=== PATIENT | male | born 1940 | race Caucasian/White ===

== ENCOUNTER → 2017-04-07 | Outpatient (CLI) | payer MEDICARE, BC ==
--- NOTE | 2017-04-07 10:14 | US ---
EXAMINATION TYPE: US kidneys/renal and bladder DATE OF EXAM: 04/07/2017 COMPARISON: 05/19/2016 CLINICAL HISTORY: D41.01 Neoplasm of unspecified behavior of Elisa. EXAM MEASUREMENTS: Right Kidney: 9.4 x 4.9 x 5.7 cm Left Kidney: 12.2 x 6.1 x 6.3 cm Right Kidney: 3.6 x 2.4 x 3.8 cm mass upper/mid pole . This has enlarged from the prior exam of 2015 where it measured 3.0 x 2.8 x 2.7 cm. Left Kidney: No hydronephrosis or masses seen Bladder: slightly distended Bilateral Jets seen: no There is no evidence for hydronephrosis at this point in time. No nephrolithiasis is seen. No deidre s are identified. The urinary bladder is anechoic. Bilateral ureteral jets are seen. IMPRESSION: Enlarging suspicious right renal mass measuring up to 3.8 cm. Again dynamic enhanced CT or MR are rec ommended for further characterization. A [place] message has been communicated to Mike Montgomery MD via the [facility] system on 04/07/2017 10:12 AM, Message ID [id number].
== END | disposition home or self-care (01) ==
LOC: RADUSWWP 08:25
PROVIDERS: ATTEND Urology
DX: N28.89 Other specified disorders of kidney and ureter (principal); D49.4 Neoplasm of unspecified behavior of bladder
CPT/HCPCS: 76770

== ENCOUNTER → 2018-10-06 | Outpatient (CLI) | payer MEDICARE, BC ==
--- NOTE | 2018-10-07 09:09 | CT ---
EXAMINATION TYPE: CT abdomen w con DATE OF EXAM: 10/06/2018 COMPARISON: Ultrasound kidneys 04/07/2017. No interval films are available at this location. INDICATION: Malignant neoplasm of RT kidney DLP: 1308 mGycm, Automated exposure control for dose reduction was used. CONTRAST: 80 mL of Isovue 300. Study performed with Oral Contrast TECHNIQUE: Axial images were obtained from above the diaphragm to the iliac crests in the axial plane at 5 mm thick sections. Reconstructed images are reviewed on the computer in the coronal plane. FINDINGS: Limited CT sections are obtained the lung bases. There may be some lingular atelectasis.. Coronary artery calcification is noted. CT ABDOMEN: Liver: Normal Spleen: Normal Pancreas: Normal Adrenal glands: The adrenal glands are normal. Gallbladder: Normal Kidneys: No masses are evident. There is moderate right hydronephrosis. Hydroureter is present to the pelvic inlet. The dilated distal ureter extends out of the [id number]. There is a hypodense lesio n on the right kidney measuring 1.8 x 1.2 cm measuring 4 Hounsfield units may be a cyst. This appears to correspond to prior site of solid mass by ultrasound. Delayed images were obtained through the dneys, which remain unremarkable. Aorta: Vascular calcification is within the aorta. Inferior vena cava: Normal. Loops of bowel distended with oral contrast normal. There are loops of bowel lacking oral contrast or with limited distention limiting their evaluation. IMPRESSIONS: 1. Moderate right hydronephrosis. Hydroureter extends out of the [id number] on the right. Conside r evaluation of the distal ureter. 2. Low density lesion on the lateral mid right kidney likely a cyst measuring 4 Hounsfield units. Thi s appears to be at the prior mass site. 3. No suspicious masses on the kidneys or suspicious changes to suggest metastatic disease.
== END | disposition home or self-care (01) ==
LOC: RADCTMAIN 15:14
PROVIDERS: ATTEND Urology
DX: C64.1 Malignant neoplasm of right kidney, except renal pelvis (principal); N13.30 Unspecified hydronephrosis; N13.4 Hydroureter
CPT/HCPCS: 82565; 84520; 74160; 36415; Q9967

== ENCOUNTER 2018-10-10 08:41 | Day surgery (SDC) | payer MEDICARE, BC ==
[~2018-10-10 08:41] MED LIST: LIDOCAINE 1% 20 ML VIAL (10MG/ML) FOR IV START INTRADERMA PRN; MIDAZOLAM (PF) 2 MG/2 ML VIAL IV PRN; ceFAZolin 1,000 MG in SODIUM CHLORIDE 0.9% IRRIGATIO 250 ML IRRIGATION ONE; ceFAZolin IN SWFI 2 GM/20 ML SYRINGE IVP ONE; fentaNYL (PF) 50 MCG/ML 2 ML AMP IV PRN
[2018-10-10 09:24] LABS: Glucose,Whole Blood 187 mg/dL (75-99)
[2018-10-10] MEDS ORDERED: SODIUM CHLORIDE 0.9% 500 ML 500 ML IV ONE (09:35)
[2018-10-10] MEDS ORDERED: LIDOCAINE 1% INJ 10MG/ML (20 ML MDV) ONE (09:45)
[2018-10-10] MEDS ORDERED: MIDAZOLAM 2 MG/2 ML VIAL ONE (10:13)
[2018-10-10] MEDS ORDERED: PROPOFOL 10 MG/ML 20 ML VIAL IV ONE (10:13)
[2018-10-10] MEDS ORDERED: fentaNYL (PF) 50 MCG/ML 2 ML AMP ONE (10:13)
[2018-10-10] MEDS ORDERED: IOPAMIDOL-250 50ML BTL IV ONE (10:31)
[2018-10-10] MEDS: LIDOCAINE 1% INJ 10MG/ML (20 ML MDV) SQ ONE ×2 (11:02→11:11)
[2018-10-10] MEDS ORDERED: HYDROcodone/APAP 5-325MG 1 EACH TAB PO PRN (11:47)
[2018-10-10] MEDS ORDERED: ACETAMINOPHEN TAB 325 MG TAB PO PRN (11:47)
--- NOTE | 2018-10-10 12:00 | P.PCN ---
Date of Procedure: 10/10/18 Preoperative Diagnosis: Ischemic cardiomyopathy, congestive heart failure Postoperative Diagnosis: The same Procedure(s) Performed: Axillary venography, insertion of single coil single-chamber AICD Description of Procedure: HISTORY: This is a 78-year-old gentleman with history of ischemic heart disease , previous bypass surgery, ischemic cardiomyopathy and CHF. Patient's LV function showed ejection fraction less than 30%. Patient is advised to have prophylactic AICD implantation. CONSENT:I have discussed the risks, benefits and alternative therapies for the above-mentioned procedure and for both sedation/analgesia as well as necessary blood product administration, if indicated, as they pertain to this patient. The patient has indicated understanding and acceptance of the risks and procedures discussed. PROCEDURE: Patient was brought to the lab in a fasting state. Patient was prepped and draped in the usual fashion. Patient was given sedation by department of anesthesia. The skin below the left clavicle was infiltrated with lidocaine. An incision was made parallel to deltopectoral groove was deepened until the pectoral fascia was exposed. A pocket was created by blunt dissection and cautery. Axillary venography was performed to delineate the course of the axillary vein. 1 venous stick was performed into extrathoracic portion of the axillary vein and a single sheath was advanced over the guidewire and left in subclavian vein. Conscious Sedation: As per anesthesia Duration []minutes LEADS: VENTRICULAR: This is manufactured by [employer]. The model number is [id number] and the serial number is [id number]. THE DEVICE: This is manufactured by [employer]. Model number is [id number] and the serial number is [id number]. The ventricular lead is maneuvered l with help of a straight and curved stylets into the left ventricle apical region. Satisfactory position was obtained and threshold measurements were made. THRESHOLDS: VENTRICLE: The minimal patient threshold is 0.5 V at pulse width of 0.5 ms. R-wave: 10 mV and the impedance is 704. The shock impedance is 63. He did DFT testing: Patient was on deep anesthesia by department of anesthesia. Went for fibrillation was induced with T shock. A 15 J shock converted patient back to sinus rhythm. Patient tolerated the procedure well. The lead and pulse generator remained in the pocket after it was washed with antibiotics. Pocket was closed in the usual fashion. The fascia was closed with 2-0 Prolene ,the subcutaneous tissue was closed with 3-0 Prolene and the skin was closed with 4-0 Prolene. PROGRAMMING: Gary programming MODE : VVI RATE: 40 OUTPUT: Ventricle: 3.5 V Tachycardia Programming: The VF zone was programmed to a rate of 200 bpm. Initial detection is programmed to 30 out of 40 and the redirect is programmed to follow out of 16. The therapies were programmed to 25 J shock followed by 355. The VT zone is programmed to a rate of 1 76 bpm. The initial detection was programmed to 16 and the redirect was programmed to 12. The therapies were programmed to burst pacing followed by leno pacing followed by cardioversion with 50 J followed by shocks of 353. The monitor zone was programmed to a rate of 150. FINAL IMPRESSION: #1. Axillary venography #2. Insertion of single coil single- chamber AICD #3. DFT testing. COMPLICATIONS: None PLAN:. Patient will be monitored on the telemetry unit. If stable patient be discharged home tomorrow. Prophylactic antibiotics to be continued. Chest x- ray in the morning
[2018-10-10] MEDS: SODIUM CHLORIDE 0.9% 1,000 ML IV SCH (12:45)
[2018-10-10] MEDS: LACTATED RINGERS 1,000 ML IV SCH (16:11)
[2018-10-10 16:33] LABS: Glucose,Whole Blood 318 mg/dL (75-99)
[2018-10-10 16:52] VITALS: BMI 34.8
[2018-10-10 17:21] VITALS: RESP 18
[2018-10-10] MEDS: ceFAZolin IN SWFI 2 GM/20 ML SYRINGE IVP SCH ×2 (17:21→23:35)
[2018-10-10] MEDS: glipiZIDE 5 MG TAB PO SCH (17:21)
[2018-10-10] MEDS: CARVEDILOL 3.125 MG TAB PO SCH (17:21)
[2018-10-10] MEDS ORDERED: FLUTICASONE 50MCG/SPRAY NASAL 16GM EA NOSTRIL PRN (18:43)
[2018-10-10] MEDS: VENLAFAXINE HCL 75 MG TAB PO SCH (20:13)
[2018-10-10] MEDS: INSULIN DETEMIR (LEVEMIR) 100 UNIT/ML SYR SQ SCH (20:13)
[2018-10-10 20:34] LABS: Glucose,Whole Blood 368 mg/dL (75-99)
[2018-10-10] MEDS ORDERED: lamoTRIgine 100 MG TAB PO SCH (21:00)
[2018-10-11] MEDS: SODIUM CHLORIDE 0.9% 1,000 ML IV SCH (03:15)
[2018-10-11] MEDS: LACTATED RINGERS 1,000 ML IV SCH (03:16)
[2018-10-11] MEDS: ceFAZolin IN SWFI 2 GM/20 ML SYRINGE IVP SCH ×2 (05:56→11:45)
[2018-10-11 06:38] LABS: Glucose,Whole Blood 202 mg/dL (75-99)
[2018-10-11] MEDS: INSULIN DETEMIR (LEVEMIR) 100 UNIT/ML SYR SQ SCH (07:32)
[2018-10-11] MEDS: glipiZIDE 5 MG TAB PO SCH (07:38)
[2018-10-11] MEDS: VENLAFAXINE HCL 75 MG TAB PO SCH (07:38)
[2018-10-11] MEDS: CARVEDILOL 3.125 MG TAB PO SCH (07:38)
--- NOTE | 2018-10-11 08:31 | P.DS ---
Providers Date of admission: 10/10/2018 Attending physician: Aliza Vargas Primary care physician: Rolly Cavanaugh - Discharge Diagnosis(es) (1) Ischemic cardiomyopathy Current Visit: Yes Status: Acute (2) Congestive heart failure Current Visit: No Status: Acute (3) Coronary artery disease Current Visit: No Status: Acute Priority: High (4) Diabetes mellitus Current Visit: No Status: Acute (5) HTN (hypertension) Current Visit: No Status: Acute (6) Hyperlipemia Current Visit: No Status: Acute Hospital Course: This patient was brought in for outpatient, prophylactic insertion of AICD for ischemic cardiomyopathy and congestive heart failure. Patient had a single coil single-chamber AICD implantation yesterday. Patient tolerated the procedure well. Patient remained stable overnight. Had mild headache which is resolving. Vital signs are stable except blood pressure being slightly high. Lungs are clear. Heart is regular. Chest x-ray showed proper lead position. There is no evidence of pneumothorax. Patient is completing antibiotic course. After evaluation by [facility] [employer], this morning, patient will be discharged home to continue home medications. We'll hold metformin for another 24 hours. Will increase the dose of the Coreg to 6.25 mg by mouth twice a day. Follow-up in the office in one week. Patient is given the usual instructions. He is advised to keep the dressing dry until seen in the office. Advised the next heavy lifting, pushing or pulling and advised to keep the left arm below the left shoulder level. Follow-up in the office in one week Plan - Discharge Summary Discharge Rx Participant: No New Discharge Prescriptions: New Fluticasone Nasal Cascade [Flonase Nasal Cascade] 2 spray EA NOSTRIL DAILY PRN spr PRN Reason: Allergy Symptoms Cephalexin [Keflex] 500 mg PO Q8HR #10 cap Continue Venlafaxine HCl [Effexor] 75 mg PO BID tab metFORMIN HCL [Glucophage] 1,000 mg PO BID-W/MEALS tab Atorvastatin [Lipitor] 80 mg PO DAILY tab Digoxin [Digitek] 125 mcg PO DAILY Cholecalciferol [Vitamin D3] 50 mcg PO DAILY Cyanocobalamin [Vitamin B-12] 1,000 mcg PO DAILY Carvedilol [Coreg] 3.125 mg PO BID lamoTRIgine [LaMICtal] 100 mg PO HS Furosemide [Lasix] 20 mg PO DAILY glipiZIDE [Glucotrol] 5 mg PO AC-BID Lisinopril [Zestril] 2.5 mg PO DAILY Potassium Chloride 10 meq PO DAILY Aspirin 162 mg PO DAILY Insulin Glargine [Lantus] 70 unit SQ BID Discharge Medication List Atorvastatin [Lipitor] 80 mg PO DAILY tab 11/21/14 [Rx] Venlafaxine HCl [Effexor] 75 mg PO BID tab 11/21/14 [Rx] metFORMIN HCL [Glucophage] 1,000 mg PO BID-W/MEALS tab 11/21/14 [Rx] Carvedilol [Coreg] 3.125 mg PO BID 05/12/16 [History] Cholecalciferol [Vitamin D3] 50 mcg PO DAILY 05/12/16 [History] Cyanocobalamin [Vitamin B-12] 1,000 mcg PO DAILY 05/12/16 [History] Digoxin [Digitek] 125 mcg PO DAILY 05/12/16 [History] lamoTRIgine [LaMICtal] 100 mg PO HS 05/12/16 [History] Aspirin 162 mg PO DAILY 10/04/18 [History] Furosemide [Lasix] 20 mg PO DAILY 10/04/18 [History] Insulin Glargine [Lantus] 70 unit SQ BID 10/04/18 [History] Lisinopril [Zestril] 2.5 mg PO DAILY 10/04/18 [History] Potassium Chloride 10 meq PO DAILY 10/04/18 [History] glipiZIDE [Glucotrol] 5 mg PO AC-BID 10/04/18 [History] Cephalexin [Keflex] 500 mg PO Q8HR #10 cap 10/11/18 [Rx] Fluticasone Nasal Cascade [Flonase Nasal Cascade] 2 spray EA NOSTRIL DAILY PRN spr 10/11/18 [Rx] Follow up Appointment(s)/Referral(s): Aliza Vargas MD [STAFF PHYSICIAN] - 1 Week Discharge Disposition: HOME SELF-CARE
[2018-10-11] MEDS ORDERED: ATORVASTATIN 80 MG TAB PO SCH (09:00)
[2018-10-11] MEDS ORDERED: LISINOPRIL 2.5 MG TAB PO SCH (09:00)
[2018-10-11] MEDS ORDERED: CYANOCOBALAMIN 500 MCG TAB PO SCH (09:00)
[2018-10-11] MEDS ORDERED: FUROSEMIDE 20 MG TAB PO SCH (09:00)
[2018-10-11] MEDS ORDERED: DIGOXIN 125 MCG TAB PO SCH (09:00)
[2018-10-11] MEDS ORDERED: CHOLECALCIFEROL 1,000 UNIT TAB PO SCH (09:00)
[2018-10-11] MEDS ORDERED: POTASSIUM CHLORIDE ER 10 MEQ TAB.ER.PRT PO SCH (09:00)
--- NOTE | 2018-10-11 09:02 | XR ---
EXAMINATION TYPE: XR chest 2V DATE OF EXAM: 10/11/2018 COMPARISON: Chest x-ray July 13, 2016. HISTORY: Lead placement check after defibrillator placement. TECHNIQUE: Frontal and lateral views of the chest are obtained. FINDINGS: There is chronic parenchymal change with elevated left hemidiaphragm and left basilar linea r scarring redemonstrated. There is no new focal air space opacity, pleural effusion, or pneumothorax seen. The cardiac silhouette size is mildly enlarged with atherosclerotic thoracic aorta. Overlyin g sternal wires and mediastinal clips are redemonstrated. There is new single lead pacemaker/AICD ter minating in right ventricle. Overlying EKG leads are seen on current study. Bridging spurs in the mid to lower thoracic spine are noted. IMPRESSION: New single lead pacemaker/AICD terminating in right ventricle. Chronic changes and mild cardiomegaly without acute pulmonary process.
[2018-10-11 11:44] VITALS: BP 111/53; PULSE 86; TEMP 97.6
[2018-10-11 11:53] LABS: Glucose,Whole Blood 241 mg/dL (75-99)
[2018-10-11] MEDS ORDERED: CARVEDILOL 6.25 MG TAB PO SCH (17:30)
== END 2018-10-11 13:00 | disposition home or self-care (01) ==
LOC: CATHEP 08:41 → 1SOBS 11:43 → CATHEP 10-11 13:00
PROVIDERS: ATTEND Internal Medicine Cardiovascular Disease
DX: I25.5 Ischemic cardiomyopathy (principal); I25.10 Atherosclerotic heart disease of native coronary artery without angina pectoris; I11.0 Hypertensive heart disease with heart failure; I50.42 Chronic combined systolic (congestive) and diastolic (congestive) heart failure; Z87.891 Personal history of nicotine dependence; Z95.1 Presence of aortocoronary bypass graft; E78.5 Hyperlipidemia, unspecified; E78.00 Pure hypercholesterolemia, unspecified; E11.9 Type 2 diabetes mellitus without complications; Z79.4 Long term (current) use of insulin; Z79.82 Long term (current) use of aspirin; Z79.899 Other long term (current) drug therapy
CPT/HCPCS: 93641; 33249; 71046; C1892; C1895; C1769; C1722; J2250; J0690 ×3; J2001; J3010; J2704; Q9966

== ENCOUNTER → 2018-10-27 | Outpatient (CLI) | payer MEDICARE, BC ==
--- NOTE | 2018-10-27 15:05 | CT ---
EXAMINATION TYPE: CT abdomen pelvis wo con DATE OF EXAM: 10/27/2018 COMPARISON: Prior CT 10/06/2017 HISTORY: Hydronephrosis CT DLP: 1383 mGycm Automated exposure control for dose reduction was used. TECHNIQUE: Helical acquisition of images from the lung bases through the pelvis. FINDINGS: There are dense coronary artery calcifications. There is a lead within the right ventricle. Lack of contrast could compromise sensitivity. Heart size is stable. Patient is post median sternoto my. Small umbilical hernia contains fat. LUNG BASES: No significant interval change is appreciated. There are interstitial changes present. AORTA: No significant abnormality is appreciated. LIVER/GB: No significant abnormality is appreciated. PANCREAS: No significant abnormality is seen. SPLEEN: No significant abnormality is seen. ADRENALS: No significant abnormality is seen. KIDNEYS: Again seen is right-sided hydronephrosis, some high attenuation is present along the lateral margin of the right kidney with some similar-appearing exophytic abnormal density as on prior. The r ight hydronephrosis extends to the level of the abnormal thickening along the right aspect of the janina dder wall. REPRODUCTIVE ORGANS: Prostate is enlarged. URINARY BLADDER: There is abnormal thickening along the r ight lateral margin of the urinary bladder which is not included on the previous exam. 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 Diverticular change along the sigm oid colon. FREE AIR: No Free Air is visible. ASCITES: None visible. PELVIC ADENOPATHY: None visualized. RETROPERITONEAL ADENOPATHY: No Retroperitoneal Adenopathy visible. OSSEOUS STRUCTURES: No significant interval change is seen. The spinal listhesis, degenerative disc changes are noted especially in the lumbar spine. Sclerosis of the sacroiliac joints may be due to st ress change, osteoarthritic change. IMPRESSION: EXTRINSIC ABNORMAL SOFT TISSUE ALONG THE RIGHT LATERAL MARGIN OF THE URINARY BLADDER IS LIKELY BECAUS E OF PATIENT'S RIGHT-SIDED HYDRONEPHROSIS.
== END | disposition home or self-care (01) ==
LOC: RADCTMAIN 10:08
PROVIDERS: ATTEND Urology
DX: N32.89 Other specified disorders of bladder (principal)
CPT/HCPCS: 74176

== ENCOUNTER → 2019-03-02 | Outpatient (CLI) | payer MEDICARE, BC ==
--- NOTE | 2019-03-02 09:56 | US ---
EXAMINATION TYPE: US kidneys/renal and bladder DATE OF EXAM: 03/02/2019 COMPARISON: CT October 27, 2018 and October 06, 2018 CLINICAL HISTORY: R93.4 HX OF HYDRONEPHROSIS. EXAM MEASUREMENTS: Right Kidney: 10.7 x 5.3 x 4.3 cm Left Kidney: 10.8 x 5.3 x 5.8 cm Right Kidney: Difficult to image, there appears to be a soft tissue density laterally that measures 2 .2 x 1.9 x 2.1 cm. Left Kidney: No hydronephrosis or masses seen Bladder: wnl Bilateral Jets seen: No Suboptimal evaluation of right kidney with vague 2.0 cm hypoechoic area marked laterally, previously visualized moderate right-sided hydronephrosis is less well seen. Left kidney shows no hydronephrosis or concerning masses. Bladder shows no intraluminal mass. IMPRESSION: Suboptimal study without obvious persistent moderate right-sided hydronephrosis. Eccentri c wall thickening causing hydronephrosis felt present on prior CT studies could be a product of prior bladder infection or neoplasm. Correlate clinically. What interval treatment has been performed? Was there interval cystoscopy?
== END | disposition home or self-care (01) ==
LOC: RADUSWWP 08:26
PROVIDERS: ATTEND Urology
DX: N13.30 Unspecified hydronephrosis (principal)
CPT/HCPCS: 76770

== ENCOUNTER 2019-10-03 14:37 | Inpatient (IN) | payer MEDICARE, BC ==
--- NOTE | 2019-10-03 17:10 | P.HPCAR ---
History of Present Illness H&P Date: 10/03/19 This is a 78-year-old gentleman with history of ischemic cardiomyopathy, previous CABG, status post AICD placement and also chronic atrial fibrillation who came to the hospital with complaints of several pounds of weight gain, orthopnea, paroxysmal nocturnal dyspnea and also exertional shortness of breath. Denied any chest pain. There is increasing pedal swelling. Clinically patient has significant JVD and 3-4+ edema. His lungs show diminished breath sounds at bases. Patient is advised to be admitted to the hospital for further evaluation. Patient will be initiated on IV Lasix. He'll be asystole echocardiogram. Chest x-ray and blood work. Further recommendations depend upon clinical course and findings on the above tests Review of Systems As per the chart Physical Exam GENERAL EXAM: Patient is alert and oriented and doesn't appear to be in any acute distress HEENT: Normocephalic. Normal reaction of pupils, equal size, normal range of extraocular motion. No erythema or exudates in the throat. NECK: JVD plus CHEST: No chest wall deformity. LUNGS: Diminished air exchange HEART: S1 and S2 normal. Irregular heart sounds ABDOMEN: No hepatosplenomegaly, normal bowel sounds, no guarding or rigidity. SKIN: No rashes CENTRAL NERVOUS SYSTEM: No focal deficits. EXTREMITIES: 3-4+ edema bilaterally Past Medical History Past Medical History: Atrial Fibrillation, Coronary Artery Disease (CAD), Cancer, Heart Failure, Diabetes Mellitus, GERD/Reflux, Hyperlipidemia Additional Past Medical History / Comment(s): See Dr Vargas's H&P, hx kidney and bladder cancer- tx with chemo and radiation 2012, "growth on kidney", history of CABG, cardiomyopathy, AICD implantation History of Any Multi-Drug Resistant Organisms: None Reported Past Surgical History: Bladder Surgery, Heart Catheterization, Orthopedic Surgery Additional Past Surgical History / Comment(s): Port-a-cath insertion/later removed. Bilateral cataract , ORIF R ankle with 2 screws,"scraped the bladder" 06-02-16 TOTAL RT KNEE,growth on kidney removed Past Anesthesia/Blood Transfusion Reactions: No Reported Reaction Additional Past Anesthesia/Blood Transfusion Reaction / Comment(s): Pt has never recieved blood. Past Psychological History: Bipolar, Depression Additional Psychological History / Comment(s): Pt is bipolar and states he does well with his medications. Smoking Status: Unknown if ever smoked Past Alcohol Use History: None Reported Additional Past Alcohol Use History / Comment(s): Pt states he started smoking at age 15. He quit sometime in the s or maybe even sooner. He was less than a pack a day smoker. Past Drug Use History: None Reported - Past Family History Father Family Medical History: Cancer Additional Family Medical History / Comment(s): prostate Mother Family Medical History: No Reported History Additional Family Medical History / Comment(s): Mother had bowel perforations. She at 88 yrs of age. Brother(s) Family Medical History: Cancer Sister(s) Family Medical History: Cancer Physical Examination Physical Exam: GENERAL EXAM: Patient is alert and oriented and doesn't appear to be in any acute distress HEENT: Normocephalic. Normal reaction of pupils, equal size, normal range of extraocular motion. No erythema or exudates in the throat. NECK: No masses, no nuchal rigidity. Increased JVD CHEST: No chest wall deformity. LUNGS: He wished breath sounds HEART: S1 and S2 normal. Regular heart sounds with a gallop rhythm ABDOMEN: No hepatosplenomegaly, normal bowel sounds, no guarding or rigidity. SKIN: No rashes CENTRAL NERVOUS SYSTEM: No focal deficits. EXTREMITIES: 3-4+ edema EKG Interpretations (text) Atrial fibrillation with moderate ventricular response Assessment and Plan (1) Acute on chronic diastolic CHF (congestive heart failure) Status: Acute Code(s): I50.33 - ACUTE ON CHRONIC DIASTOLIC (CONGESTIVE) HEART FAILURE SNOMED Code(s): 411517329 (2) Cardiomyopathy Status: Acute Priority: Medium Code(s): I42.9 - CARDIOMYOPATHY, UNSPECIFIED SNOMED Code(s): 10310776 (3) Coronary artery disease Status: Acute Priority: High Code(s): I25.10 - ATHSCL HEART DISEASE OF [place] CORONARY ARTERY W/O ANG PCTRS SNOMED Code(s): 17667604 (4) Diabetes mellitus Status: Acute Code(s): E11.9 - TYPE 2 DIABETES MELLITUS WITHOUT COMPLICATIONS SNOMED Code(s): 81747998 (5) HTN (hypertension) Status: Acute Code(s): I10 - ESSENTIAL (PRIMARY) HYPERTENSION SNOMED Code(s): 13618563 (6) Hyperlipemia Status: Acute Code(s): E78.5 - HYPERLIPIDEMIA, UNSPECIFIED SNOMED Code(s): 41043847 (7) S/P CABG (coronary artery bypass graft) Status: Acute Code(s): Z95.1 - PRESENCE OF AORTOCORONARY BYPASS GRAFT SNOMED Code(s): 351162408 Plan: Patient will be started on IV diuretics. Echocardiogram to obtained. Chest x- ray to be done. We'll resume home medications. May consider adding Entresto. Digoxin level
[2019-10-03 17:43] LABS: Glucose,Whole Blood 193 mg/dL (75-99)
--- NOTE | 2019-10-03 18:16 | XR ---
EXAMINATION TYPE: XR chest 2V DATE OF EXAM: 10/03/2019 COMPARISON: 10/11/2018 HISTORY: Short of breath TECHNIQUE: FINDINGS: Heart is enlarged. There is left axillary pacemaker. There is mild pulmonary congestion. Th ere is coarse interstitial infiltrate in the lungs. There is slight blunting of the costophrenic angl es. IMPRESSION: There is probably mild heart failure. Small pleural effusions and pleural reaction. There is probably underlying pulmonary fibrosis. Heart failure appears new compared to last exam.
[2019-10-03] MEDS: FUROSEMIDE 10 MG/ML 4 ML VIAL IV SCH ×2 (18:18→22:55)
[2019-10-03] MEDS: hydrALAZINE HCL 25 MG TAB PO SCH ×2 (18:18→22:55)
[2019-10-03] MEDS: metFORMIN 500 MG TAB PO SCH (18:18)
[2019-10-03] MEDS: glipiZIDE 5 MG TAB PO SCH (18:19)
[2019-10-03] MEDS: CARVEDILOL 6.25 MG TAB PO SCH (18:19)
[2019-10-03] MEDS: INSULIN ASPART (NovoLOG) 100 UNIT/ML VIAL SQ SCH ×2 (18:19→20:41)
[2019-10-03 18:22] LABS: Anisocytosis Slight; Basophils % (A) 0 %; Eosinophils # (A) 0.2 k/uL (0-0.7); Eosinophils % (A) 2 %; HCT 33.9 % (39.0-53.0); HGB 10.5 gm/dL (13.0-17.5); Hypochromasia Moderate; Lymphocytes # (A) 1.3 k/uL (1.0-4.8); Lymphocytes % (A) 14 %; MCH 24.2 pg (25.0-35.0); MCHC 30.9 g/dL (31.0-37.0); MCV 78.5 fL (80.0-100.0); Mean Platelet Volume 7.6; Microcytosis Slight; Monocytes # (A) 0.7 k/uL (0-1.0); Monocytes % (A) 8 %; Neutrophils # (A) 6.3 k/uL (1.3-7.7); Neutrophils % (A) 72 %; Platelet Count 330 k/uL (150-450); RBC 4.32 m/uL (4.30-5.90); RDW 16.1 % (11.5-15.5); WBC 8.8 k/uL (3.8-10.6)
[2019-10-03 18:39] LABS: Albumin 3.8 g/dL (3.5-5.0); Calcium 9.2 mg/dL (8.4-10.2); Potassium 4.8 mmol/L (3.5-5.1); Total Bilirubin 0.4 mg/dL (0.2-1.3)
[2019-10-03 19:37] LABS: Bacteria,Urine Rare /hpf; Hyaline Casts,Urine 1 /lpf (0-2); Mucus,Urine Rare /hpf; RBC,Urine 157 /hpf (0-5); Squamous Epithelial Cell,Urine <1 /hpf (0-4); WBC,Urine 26 /hpf (0-5)
[2019-10-03 20:04] LABS: Appearance,Urine Slightly Cloudy (Clear); Bilirubin,Urine Negative (Negative); Blood,Urine Large (Negative); Color,Urine Amber; Glucose,Urine (UA) 2+ (Negative); Ketones,Urine Negative (Negative); Leukocyte Esterase,Urine Small (Negative); Nitrite,Urine Negative (Negative); Protein,Urine 1+ (Negative); Specific Gravity,Urine 1.015 (1.001-1.035); Urobilinogen,Urine <2.0 mg/dL (<2.0)
[2019-10-03] MEDS: ATORVASTATIN 80 MG TAB PO SCH (20:31)
[2019-10-03] MEDS: APIXABAN 5 MG TAB PO SCH (20:31)
[2019-10-03] MEDS: VENLAFAXINE HCL 75 MG TAB PO SCH (20:31)
[2019-10-03 20:40] LABS: Glucose,Whole Blood 174 mg/dL (75-99)
[2019-10-03] MEDS: INSULIN DETEMIR (LEVEMIR) 100 UNIT/ML SYR SQ SCH (20:41)
[2019-10-03] MEDS ORDERED: INSULIN DETEMIR (LEVEMIR) 100 UNIT/ML SYR SQ SCH ×2 (21:00)
[2019-10-04] MEDS: glipiZIDE 5 MG TAB PO SCH ×2 (06:53→16:58)
[2019-10-04] MEDS: CARVEDILOL 6.25 MG TAB PO SCH ×2 (06:53→16:58)
[2019-10-04] MEDS: metFORMIN 500 MG TAB PO SCH ×2 (06:53→16:58)
[2019-10-04] MEDS ORDERED: INSULIN DETEMIR (LEVEMIR) 100 UNIT/ML SYR SQ SCH (07:00)
[2019-10-04 07:38] LABS: Glucose,Whole Blood 64 mg/dL (75-99)
[2019-10-04 08:05] LABS: Glucose,Whole Blood 84 mg/dL (75-99)
[2019-10-04 09:35] LABS: Calcium 9.2 mg/dL (8.4-10.2); Potassium 4.6 mmol/L (3.5-5.1)
[2019-10-04] MEDS: INSULIN ASPART (NovoLOG) 100 UNIT/ML VIAL SQ SCH ×4 (09:42→21:11)
[2019-10-04] MEDS: lamoTRIgine 100 MG TAB PO SCH (09:46)
[2019-10-04] MEDS: APIXABAN 5 MG TAB PO SCH ×2 (09:46→19:41)
[2019-10-04] MEDS: DIGOXIN 125 MCG TAB PO SCH (09:46)
[2019-10-04] MEDS: FUROSEMIDE 10 MG/ML 4 ML VIAL IV SCH ×3 (09:46→23:11)
[2019-10-04] MEDS: hydrALAZINE HCL 25 MG TAB PO SCH ×3 (09:46→21:11)
[2019-10-04] MEDS: INSULIN DETEMIR (LEVEMIR) 100 UNIT/ML SYR SQ SCH ×2 (09:46→21:11)
[2019-10-04] MEDS: VENLAFAXINE HCL 75 MG TAB PO SCH ×2 (09:46→19:41)
[2019-10-04 09:52] LABS: Glucose,Whole Blood 214 mg/dL (75-99)
--- NOTE | 2019-10-04 10:38 | ECHOF ---
Referral Reason:CHF/Cardiomyopathy MEASUREMENTS -------- HEIGHT: 177.8 cm WEIGHT: 115.2 kg BP: 104/54 RVIDd: 3.5 cm (< 3.3) IVSd: 1.4 cm (0.6 - 1.1) LVIDd: 4.8 cm (3.9 - 5.3) LVPWd: 1.3 cm (0.6 - 1.1) IVSs: 1.7 cm LVIDs: 4.1 cm LVPWs: 1.7 cm LA Diam: 4.4 cm (2.7 - 3.8) LAESV Index (A-L): 41.58 ml/m Ao Diam: 3.9 cm (2.0 - 3.7) AV Cusp: 2.2 cm (1.5 - 2.6) MV EXCURSION: 18.395 mm (> 18.000) MV EF SLOPE: 131 mm/s (70 - 150) EPSS: 1.8 cm AV maxP.40 mmHg AV meanP.85 mmHg AR PHT: 531 ms RAP: 5.00 mmHg RVSP: 47.20 mmHg FINDINGS -------- The rhythm appears to be atrial flutter. This was a technically adequate study. The left ventricular size is normal. There is moderate concentric left ventricular hypertrophy. O verall left ventricular systolic function is severely impaired with, an EF < 20%. The right ventricle is mildly enlarged. LA is severely dilated >40 ml/m2 The right atrium is normal in size. Interatrial and interventricular septum intact. There is mild to moderate aortic valve sclerosis. There is moderate aortic regurgitation. There i s mild aortic stenosis present. Peak/mean gradient across the Aortic Valve is 12.40mmHg / 6.85mmHg. The mitral valve leaflets are mildly thickened. Mild mitral annular calcification present. Mild m itral regurgitation is present. Mild tricuspid regurgitation present. There is moderate pulmonary hypertension. The right ventric ular systolic pressure, as measured by Doppler, is 47.20mmHg. The pulmonic valve was not well visualized. The aortic root is dilated measuring 3.9cm. Normal inferior vena cava with normal inspiratory collapse consistent with estimated right atrial pre ssure of 5 mmHg. The inferior vena cava is mildly dilated. There is no pericardial effusion. CONCLUSIONS -------- 1. The rhythm appears to be atrial flutter. 2. This was a technically adequate study. 3. The left ventricular size is normal. 4. There is moderate concentric left ventricular hypertrophy. 5. Overall left ventricular systolic function is severely impaired with, an EF < 20%. 6. The right ventricle is mildly enlarged. 7. LA is severely dilated >40 ml/m2 8. The right atrium is normal in size. 9. Interatrial and interventricular septum intact. 10. There is mild to moderate aortic valve sclerosis. 11. There is moderate aortic regurgitation. 12. There is mild aortic stenosis present. 13. Peak/mean gradient across the Aortic Valve is 12.40mmHg / 6.85mmHg. 14. The mitral valve leaflets are mildly thickened. 15. Mild mitral annular calcification present. 16. Mild mitral regurgitation is present. 17. Mild tricuspid regurgitation present. 18. There is moderate pulmonary hypertension. 19. The right ventricular systolic pressure, as measured by Doppler, is 47.20mmHg. 20. The pulmonic valve was not well visualized. 21. The aortic root is dilated measuring 3.9cm. 22. Normal inferior vena cava with normal inspiratory collapse consistent with estimated right atrial pressure of 5 mmHg. 23. The inferior vena cava is mildly dilated. 24. There is no pericardial effusion. COUNTY ATTORNEY: Jerri Sosa RDCS
[2019-10-04 12:17] LABS: Glucose,Whole Blood 171 mg/dL (75-99)
[2019-10-04 13:26] VITALS: BMI 35.4
--- NOTE | 2019-10-04 15:16 | P.PN ---
Subjective Progress Note Date: 10/04/19 This is a 78-year-old gentleman with history of ischemic cardio myopathy, coronary artery disease with prior bypass surgery, status post AICD, persistent atrial fibrillation, diabetes, hyperlipidemia, admitted to the hospital by Dr. Vargas with congestive heart failure. Patient was initiate d on IV Lasix, he diuresed well through the night last night, his weight is down 3 kg today. Blood pressure 118/70 with a heart rate in the 80s, 98% on room air. Sodium 139, potassium 4.6, BUN 29, creatinine 1.5, digoxin 0.4. Objective - Vital Signs Vital signs: Vital Signs Temp 97.6 F 10/04/19 08:00 Pulse 82 10/04/19 12:00 Resp 20 10/04/19 12:00 BP 118/73 10/04/19 12:00 Pulse Ox 98 10/04/19 12:00 Intake & Output 10/03/19 10/04/19 10/04/19 18:59 06:59 18:59 Intake Total 120 10 480 Output Total 1425 700 Balance 120 -1415 -220 Weight 115.4 kg 112.2 kg 112.2 kg Intake: IV 10 Invasive Line 1 10 Oral 120 480 Output: Urine 1425 700 Other: Voiding Method Urinal - Exam PHYSICAL EXAMINATION: GENERAL: 78-year-old gentleman in no acute distress at the time of my examining HEENT: Head is atraumatic, normocephalic. Pupils equal, round. Sclera anicteric. Conjunctiva are clear. Mucous membranes of the mouth are moist. Neck is supple. There is no elevated jugular venous pressure. No carotid b ruit is heard. HEART EXAMINATION: Heart S1 and S2 systolic murmur is heard CHEST EXAMINATION:'s reveal diminished air entry bilaterally to the bases. ABDOMEN: Soft, nontender. Bowel sounds are heard. No organomegaly noted. EXTREMITIES: 2+ peripheral pulses with 2+ evidence of peripheral edema and no calf tenderness noted. NEUROLOGIC patient is awake, alert and oriented 3 . . - Labs CBC & Chem 7: 10/03/19 17:47 10/04/19 05:30 Labs: Abnormal Lab Results - Last 24 Hours (Table) 10/03/19 10/03/19 10/03/19 Range/Units 17:41 17:47 17:47 Hgb 10.5 L (13.0-17.5) gm/dL Hct 33.9 L (39.0-53.0) % MCV 78.5 L (80.0-100.0) fL MCH 24.2 L (25.0-35.0) pg MCHC 30.9 L (31.0-37.0) g/dL RDW 16.1 H (11.5-15.5) % BUN 30 H (9-20) mg/dL Creatinine 1.42 H (0.66-1.25) mg/dL Glucose 173 H (74-99) mg/dL POC Glucose (mg/dL) 193 H (75-99) mg/dL Hemoglobin A1c (4.0-6.0) % Alkaline Phosphatase 148 H (38-126) U/L Urine Protein (Negative) Urine Glucose (UA) (Negative) Urine RBC (0-5) /hpf Urine WBC (0-5) /hpf Urine Bacteria (None) /hpf Urine Mucus (None) /hpf 10/03/19 10/03/19 10/04/19 Range/Units 19:10 20:39 05:30 Hgb (13.0-17.5) gm/dL Hct (39.0-53.0) % MCV (80.0-100.0) fL MCH (25.0-35.0) pg MCHC (31.0-37.0) g/dL RDW (11.5-15.5) % BUN 29 H (9-20) mg/dL Creatinine 1.56 H (0.66-1.25) mg/dL Glucose 53 L (74-99) mg/dL POC Glucose (mg/dL) 174 H (75-99) mg/dL Hemoglobin A1c (4.0-6.0) % Alkaline Phosphatase (38-126) U/L Urine Protein 1+ H (Negative) Urine Glucose (UA) 2+ H (Negative) Urine RBC 157 H (0-5) /hpf Urine WBC 26 H (0-5) /hpf Urine Bacteria Rare H (None) /hpf Urine Mucus Rare H (None) /hpf 10/04/19 10/04/19 10/04/19 Range/Units 05:32 07:23 09:45 Hgb (13.0-17.5) gm/dL Hct (39.0-53.0) % MCV (80.0-100.0) fL MCH (25.0-35.0) pg MCHC (31.0-37.0) g/dL RDW (11.5-15.5) % BUN (9-20) mg/dL Creatinine (0.66-1.25) mg/dL Glucose (74-99) mg/dL POC Glucose (mg/dL) 64 L 214 H (75-99) mg/dL Hemoglobin A1c 8.0 H (4.0-6.0) % Alkaline Phosphatase (38-126) U/L Urine Protein (Negative) Urine Glucose (UA) (Negative) Urine RBC (0-5) /hpf Urine WBC (0-5) /hpf Urine Bacteria (None) /hpf Urine Mucus (None) /hpf 10/04/19 Range/Units 12:15 Hgb (13.0-17.5) gm/dL Hct (39.0-53.0) % MCV (80.0-100.0) fL MCH (25.0-35.0) pg MCHC (31.0-37.0) g/dL RDW (11.5-15.5) % BUN (9-20) mg/dL Creatinine (0.66-1.25) mg/dL Glucose (74-99) mg/dL POC Glucose (mg/dL) 171 H (75-99) mg/dL Hemoglobin A1c (4.0-6.0) % Alkaline Phosphatase (38-126) U/L Urine Protein (Negative) Urine Glucose (UA) (Negative) Urine RBC (0-5) /hpf Urine WBC (0-5) /hpf Urine Bacteria (None) /hpf Urine Mucus (None) /hpf Assessment and Plan Plan: Assessment and plan #1 systolic congestive heart failure acute on chronic #2 ischemic cardiomyopathy status post AICD #3 coronary artery disease with prior bypass surgery #4 hypertension #5Diabetes #6 hyperlipidemia Plan We will obtain a BNP level, continue current dose of IV Lasix, monitor daily intake and output along with daily lytes BUN and creatinine. DNP note has been reviewed, I agree with a documented findings and plan of care. Patient was seen and examined.
[2019-10-04 17:54] LABS: Glucose,Whole Blood 117 mg/dL (75-99)
[2019-10-04] MEDS: ATORVASTATIN 80 MG TAB PO SCH (19:41)
[2019-10-04 21:01] LABS: Glucose,Whole Blood 169 mg/dL (75-99)
[2019-10-05] MEDS: metFORMIN 500 MG TAB PO SCH ×2 (06:58→21:16)
[2019-10-05] MEDS: glipiZIDE 5 MG TAB PO SCH ×2 (06:58→21:16)
[2019-10-05] MEDS: CARVEDILOL 6.25 MG TAB PO SCH ×2 (06:58→21:16)
[2019-10-05] MEDS: INSULIN ASPART (NovoLOG) 100 UNIT/ML VIAL SQ SCH ×4 (06:59→21:18)
[2019-10-05 07:03] LABS: Glucose,Whole Blood 64 mg/dL (75-99)
[2019-10-05 07:12] LABS: Glucose,Whole Blood 68 mg/dL (75-99)
[2019-10-05 07:29] LABS: Glucose,Whole Blood 201 mg/dL (75-99)
[2019-10-05] MEDS: FUROSEMIDE 10 MG/ML 4 ML VIAL IV SCH ×3 (08:04→23:04)
[2019-10-05] MEDS: VENLAFAXINE HCL 75 MG TAB PO SCH ×2 (09:05→21:21)
[2019-10-05] MEDS: DIGOXIN 125 MCG TAB PO SCH (09:05)
[2019-10-05] MEDS: INSULIN DETEMIR (LEVEMIR) 100 UNIT/ML SYR SQ SCH ×2 (09:05→21:21)
[2019-10-05] MEDS: lamoTRIgine 100 MG TAB PO SCH (09:05)
[2019-10-05] MEDS: APIXABAN 5 MG TAB PO SCH ×2 (09:05→21:21)
[2019-10-05] MEDS: hydrALAZINE HCL 25 MG TAB PO SCH ×3 (09:05→21:21)
[2019-10-05 11:26] LABS: Calcium 8.7 mg/dL (8.4-10.2); Potassium 4.6 mmol/L (3.5-5.1)
--- NOTE | 2019-10-05 11:34 | P.PN ---
Subjective Progress Note Date: 10/05/19 This is a 78-year-old gentleman with history of ischemic cardio myopathy, coronary artery disease with prior bypass surgery, status post AICD, persistent atrial fibrillation, diabetes, hyperlipidemia, admitted to the hospital by Dr. Vargas with congestive heart failure. Patient was initiate d on IV Lasix, he diuresed well through the night last night, his weight is down 3 kg today. Blood pressure 118/70 with a heart rate in the 80s, 98% on room air. Sodium 139, potassium 4.6, BUN 29, creatinine 1.5, digoxin 0.4. 10/05/2019 Patient was seen and examined this morning, he does state that he still feels mildly short of breath however significantly improved from admission here. His weight is down another kilogram today. Blood pressure 112/60, his heart rate is in the 70s, 97% on room air. Sodium 138, potassium 4.6, BUN 34, creatinine 1.5. Objective - Vital Signs Vital signs: Vital Signs Temp 98.9 F 10/05/19 08:00 Pulse 71 10/05/19 09:11 Resp 18 10/05/19 09:11 BP 112/65 10/05/19 08:00 Pulse Ox 97 10/05/19 08:00 Intake & Output 10/04/19 10/05/19 10/05/19 18:59 06:59 18:59 Intake Total 720 180 Output Total 1200 1500 Balance -480 -1500 180 Weight 112.2 kg 111.7 kg Intake: Oral 720 180 Output: Urine 1200 1500 Other: Voiding Method Urinal - Exam PHYSICAL EXAMINATION: GENERAL: 78-year-old gentleman in no acute distress at the time of my examining HEENT: Head is atraumatic, normocephalic. Pupils equal, round. Sclera anicteric. Conjunctiva are clear. Mucous membranes of the mouth are moist. Neck is supple. There is no elevated jugular venous pressure. No carotid bruit is heard. HEART EXAMINATION: Heart S1 and S2 systolic murmur is heard CHEST EXAMINATION:'s reveal diminished air entry bilaterally to the bases. ABDOMEN: Soft, nontender. Bowel sounds are heard. No organomegaly noted. EXTREMITIES: 2+ peripheral pulses with 2+ evidence of peripheral edema and no calf tenderness noted. NEUROLOGIC patient is awake, alert and oriented 3 . . - Labs CBC & Chem 7: 02/18/20 17:47 10/05/19 10:15 Labs: Abnormal Lab Results - Last 24 Hours (Table) 10/04/19 10/04/19 10/04/19 Range/Units 05:32 12:15 17:43 BUN (9-20) mg/dL Creatinine (0.66-1.25) mg/dL Glucose (74-99) mg/dL POC Glucose (mg/dL) 171 H 117 H (75-99) mg/dL Hemoglobin A1c 8.0 H (4.0-6.0) % 10/04/19 10/05/19 10/05/19 Range/Units 21:00 06:56 07:09 BUN (9-20) mg/dL Creatinine (0.66-1.25) mg/dL Glucose (74-99) mg/dL POC Glucose (mg/dL) 169 H 64 L 68 L (75-99) mg/dL Hemoglobin A1c (4.0-6.0) % 10/05/19 10/05/19 Range/Units 07:28 10:15 BUN 34 H (9-20) mg/dL Creatinine 1.55 H (0.66-1.25) mg/dL Glucose 143 H (74-99) mg/dL POC Glucose (mg/dL) 201 H (75-99) mg/dL Hemoglobin A1c (4.0-6.0) % Assessment and Plan Plan: Assessment and plan #1 systolic congestive heart failure acute on chronic #2 ischemic cardiomyopathy status post AICD #3 coronary artery disease with prior bypass surgery #4 hypertension #5Diabetes #6 hyperlipidemia Plan From cardiology's perspective, we will continue the patient on current IV Lasix dose for 24 hours, continue to monitor intake and output, daily weights. DNP note has been reviewed, I agree with a documented findings and plan of care. Patient was seen and examined.
[2019-10-05 12:40] LABS: Glucose,Whole Blood 141 mg/dL (75-99)
[2019-10-05 16:52] LABS: Glucose,Whole Blood 146 mg/dL (75-99)
[2019-10-05 20:31] LABS: Glucose,Whole Blood 143 mg/dL (75-99)
[2019-10-05] MEDS: ATORVASTATIN 80 MG TAB PO SCH (21:21)
[2019-10-06 05:59] LABS: Glucose,Whole Blood 83 mg/dL (75-99)
[2019-10-06] MEDS: INSULIN ASPART (NovoLOG) 100 UNIT/ML VIAL SQ SCH ×4 (06:09→21:42)
[2019-10-06 06:43] LABS: Calcium 8.8 mg/dL (8.4-10.2); Potassium 4.6 mmol/L (3.5-5.1)
[2019-10-06] MEDS: glipiZIDE 5 MG TAB PO SCH ×2 (06:56→17:23)
[2019-10-06] MEDS: INSULIN DETEMIR (LEVEMIR) 100 UNIT/ML SYR SQ SCH ×2 (06:56→21:46)
[2019-10-06] MEDS: metFORMIN 500 MG TAB PO SCH ×2 (06:56→17:23)
[2019-10-06] MEDS: CARVEDILOL 6.25 MG TAB PO SCH ×2 (06:56→17:23)
[2019-10-06 06:57] LABS: Glucose,Whole Blood 82 mg/dL (75-99)
[2019-10-06] MEDS: FUROSEMIDE 10 MG/ML 4 ML VIAL IV SCH (07:36)
[2019-10-06] MEDS: lamoTRIgine 100 MG TAB PO SCH (08:45)
[2019-10-06] MEDS: APIXABAN 5 MG TAB PO SCH ×2 (08:45→21:45)
[2019-10-06] MEDS: DIGOXIN 125 MCG TAB PO SCH (08:45)
[2019-10-06] MEDS: VENLAFAXINE HCL 75 MG TAB PO SCH ×2 (08:45→21:45)
[2019-10-06] MEDS: hydrALAZINE HCL 25 MG TAB PO SCH ×3 (08:45→21:45)
[2019-10-06] MEDS: SACUBITRIL/VALSARTAN 24 MG-26 MG TABLET PO SCH ×2 (11:45→21:45)
[2019-10-06 11:55] LABS: Glucose,Whole Blood 99 mg/dL (75-99)
--- NOTE | 2019-10-06 12:44 | P.PN ---
Subjective Progress Note Date: 10/06/19 This is a 78-year-old gentleman with history of ischemic cardio myopathy, coronary artery disease with prior bypass surgery, status post AICD, persistent atrial fibrillation, diabetes, hyperlipidemia, admitted to the hospital by Dr. Vargas with congestive heart failure. Patient was initiate d on IV Lasix, he diuresed well through the night last night, his weight is down 3 kg today. Blood pressure 118/70 with a heart rate in the 80s, 98% on room air. Sodium 139, potassium 4.6, BUN 29, creatinine 1.5, digoxin 0.4. 10/05/2019 Patient was seen and examined this morning, he does state that he still feels mildly short of breath however significantly improved from admission here. His weight is down another kilogram today. Blood pressure 112/60, his heart rate is in the 70s, 97% on room air. Sodium 138, potassium 4.6, BUN 34, creatinine 1.5. 10/06/2019 Patient seen and examined this morning sitting up in a chair, edema significantly improved, overall the patient feels a lot better. His creatinine today is 1.6. We will decrease his IV Lasix dose to 80 daily dose, we will also discontinue the Lanoxin and start the patient on a contrast O today, monitoring the blood pressure closely as well as the patient's creatinine. Obtianchest x- ray today. Objective - Vital Signs Vital signs: Vital Signs Temp 97.9 F 10/06/19 12:00 Pulse 59 L 10/06/19 12:00 Resp 19 10/06/19 12:00 BP 135/80 10/06/19 12:32 Pulse Ox 99 10/06/19 12:00 Intake & Output 10/05/19 10/06/19 10/06/19 18:59 06:59 18:59 Intake Total 540 600 220 Output Total 500 1500 Balance 40 -900 220 Weight 111.5 kg Intake: Oral 540 600 220 Output: Urine 500 1500 Other: # Voids 1 - Exam PHYSICAL EXAMINATION: GENERAL: 78-year-old gentleman in no acute distress at the time of my examining HEENT: Head is atraumatic, normocephalic. Pupils equal, round. Sclera anicteric. Conjunctiva are clear. Mucous membranes of the mouth are moist. Neck is supple. There is no elevated jugular venous pressure. No carotid bruit is heard. HEART EXAMINATION: Heart S1 and S2 systolic murmur is heard CHEST EXAMINATION:lungs reveal improvement in air entry bilaterally to the bases. ABDOMEN: Soft, nontender. Bowel sounds are heard. No organomegaly noted. EXTREMITIES: 2+ peripheral pulses with trace evidence of peripheral edema and no calf tenderness noted. NEUROLOGIC patient is awake, alert and oriented 3 . . - Labs CBC & Chem 7: 10/03/19 17:47 10/06/19 05:21 Labs: Abnormal Lab Results - Last 24 Hours (Table) 10/05/19 10/05/19 10/05/19 Range/Units 12:37 16:50 20:29 BUN (9-20) mg/dL Creatinine (0.66-1.25) mg/dL POC Glucose (mg/dL) 141 H 146 H 143 H (75-99) mg/dL 10/06/19 Range/Units 05:21 BUN 39 H (9-20) mg/dL Creatinine 1.63 H (0.66-1.25) mg/dL POC Glucose (mg/dL) (75-99) mg/dL Assessment and Plan Plan: Assessment and plan #1 systolic congestive heart failure acute on chronic #2 ischemic cardiomyopathy status post AICD #3 coronary artery disease with prior bypass surgery #4 hypertension #5Diabetes #6 hyperlipidemia Plan We will decrease the IV Lasix to a daily dose. Discontinue the Lanoxin. Start the patient onEntresto. Monitor blood pressure and renal function closely. DNP note has been reviewed, I agree with a documented findings and plan of care. Patient was seen and examined.
--- NOTE | 2019-10-06 14:33 | XR ---
EXAMINATION TYPE: XR chest 2V DATE OF EXAM: 10/06/2019 COMPARISON: 10/03/2019 INDICATION: CHF TECHNIQUE: Frontal and lateral views of the chest are obtained. FINDINGS: The heart size is normal. Pacemaker overlies left chest. The pulmonary vasculature is normal. No suspicious focal consolidations are evident. Previous infiltrate has improved.. IMPRESSION: 1. Resolving congestive heart failure
[2019-10-06 17:09] LABS: Glucose,Whole Blood 217 mg/dL (75-99)
[2019-10-06 21:26] LABS: Glucose,Whole Blood 135 mg/dL (75-99)
[2019-10-06] MEDS: ATORVASTATIN 80 MG TAB PO SCH (21:45)
[2019-10-07 01:54] VITALS: RESP 18
[2019-10-07 06:19] LABS: Calcium 8.8 mg/dL (8.4-10.2); Potassium 4.5 mmol/L (3.5-5.1)
[2019-10-07 06:34] LABS: Glucose,Whole Blood 73 mg/dL (75-99)
[2019-10-07] MEDS: INSULIN ASPART (NovoLOG) 100 UNIT/ML VIAL SQ SCH ×2 (06:39→12:48)
[2019-10-07 06:47] LABS: Glucose,Whole Blood 87 mg/dL (75-99)
[2019-10-07] MEDS: INSULIN DETEMIR (LEVEMIR) 100 UNIT/ML SYR SQ SCH (06:50)
[2019-10-07] MEDS: metFORMIN 500 MG TAB PO SCH (06:50)
[2019-10-07] MEDS: CARVEDILOL 6.25 MG TAB PO SCH (06:50)
[2019-10-07] MEDS: glipiZIDE 5 MG TAB PO SCH (06:50)
[2019-10-07] MEDS ORDERED: FUROSEMIDE 10 MG/ML 4 ML VIAL IV SCH (09:00)
[2019-10-07] MEDS: SACUBITRIL/VALSARTAN 24 MG-26 MG TABLET PO SCH (09:25)
[2019-10-07] MEDS: hydrALAZINE HCL 25 MG TAB PO SCH (09:25)
[2019-10-07] MEDS: VENLAFAXINE HCL 75 MG TAB PO SCH (09:25)
[2019-10-07] MEDS: lamoTRIgine 100 MG TAB PO SCH (09:25)
[2019-10-07] MEDS: APIXABAN 5 MG TAB PO SCH (09:25)
[2019-10-07 09:34] VITALS: TEMP 98.3
[2019-10-07 12:43] LABS: Glucose,Whole Blood 161 mg/dL (75-99)
[2019-10-07] MEDS ORDERED: FUROSEMIDE 10 MG/ML 4 ML VIAL IV STA (13:28)
--- NOTE | 2019-10-07 14:12 | P.PN ---
Subjective Progress Note Date: 10/07/19 Discharge summary This is a 78-year-old gentleman with history of ischemic cardio myopathy, coronary artery disease with prior bypass surgery, status post AICD, persistent atrial fibrillation, diabetes, hyperlipidemia, admitted to the hospital by Dr. Vargas with congestive heart failure. Patient was initiated on IV Lasix, he diuresed well through the night last night, his weight is down 3 kg today. Blood pressure 118/70 with a heart rate in the 80s, 98% on room air. Sodium 139, potassium 4.6, BUN 29, creatinine 1.5, digoxin 0.4. 10/05/2019 Patient was seen and examined this morning, he does state that he still feels mildly short of breath however significantly improved from admission here. His weight is down another kilogram today. Blood pressure 112/60, his heart rate is in the 70s, 97% on room air. Sodium 138, potassium 4.6, BUN 34, creatinine 1.5. 10/06/2019 Patient seen and examined this morning sitting up in a chair, edema significantly improved, overall the patient feels a lot better. His creatinine today is 1.6. We will decrease his IV Lasix dose to 80 daily dose, we will also discontinue the Lanoxin and start the patient on a contrast O today, monitoring the blood pressure closely as well as the patient's creatinine. Obtianchest x- ray today. 10/07/2019 Patient seen and examined this morning, he feels well, he sitting up in the chair at bedside. Denies any dizziness or lightheadedness. Breathing is stable. Continue to diurese well through the night on daily dose of IV Lasix. Sodium 138, potassium 4.5, BUN 38, creatinine 1.5. Repeat chest x-ray was performed which revealed resolving congestive heart failure. Objective - Vital Signs Vital signs: Vital Signs Temp 98.3 F 10/07/19 08:00 Pulse 107 H 10/07/19 08:00 Resp 18 10/07/19 08:00 BP 96/53 10/07/19 08:00 Pulse Ox 97 10/07/19 08:00 Intake & Output 10/06/19 10/07/19 10/07/19 18:59 06:59 18:59 Intake Total 575 540 360 Output Total 320 1050 Balance 255 -510 360 Weight 111.3 kg Intake: Oral 575 540 360 Output: Urine 320 1050 Other: Voiding Method Urinal # Voids 2 - Exam PHYSICAL EXAMINATION: GENERAL: 78-year-old gentleman in no acute distress at the time of my examining HEENT: Head is atraumatic, normocephalic. Pupils equal, round. Sclera anicteric. Conjunctiva are clear. Mucous membranes of the mouth are moist. Neck is supple. There is no elevated jugular venous pressure. No carotid bruit is heard. HEART EXAMINATION: Heart S1 and S2 systolic murmur is heard CHEST EXAMINATION:lungs reveal improvement in air entry bilaterally to the bases. ABDOMEN: Soft, nontender. Bowel sounds are heard. No organomegaly noted. EXTREMITIES: 2+ peripheral pulses with trace evidence of peripheral edema and no calf tenderness noted. NEUROLOGIC patient is awake, alert and oriented 3 . . - Labs CBC & Chem 7: 10/03/19 17:47 10/07/19 05:27 Labs: Abnormal Lab Results - Last 24 Hours (Table) 10/06/19 10/06/19 10/07/19 Range/Units 17:07 21:17 05:27 BUN 38 H (9-20) mg/dL Creatinine 1.58 H (0.66-1.25) mg/dL POC Glucose (mg/dL) 217 H 135 H (75-99) mg/dL 10/07/19 10/07/19 Range/Units 06:23 12:41 BUN (9-20) mg/dL Creatinine (0.66-1.25) mg/dL POC Glucose (mg/dL) 73 L 161 H (75-99) mg/dL Assessment and Plan Plan: Assessment and plan #1 systolic congestive heart failure acute on chronic #2 ischemic cardiomyopathy status post AICD #3 coronary artery disease with prior bypass surgery #4 hypertension #5Diabetes #6 hyperlipidemia Plan We'll give the patient one time dose of IV Lasix today. Change him over to oral diuretics increasing his home dose. Check lytes BUN and creatinine in 3 days. He is quite eager to be discharged home later today. We will make him a follow- up appointment with Dr. Vargas in the office in one week. DNP note has been reviewed, I agree with a documented findings and plan of care. Patient was seen and examined.
[2019-10-07 14:22] VITALS: BP 100/59; PULSE 76
[2019-10-07] MEDS ORDERED: FUROSEMIDE 20 MG TAB PO SCH (16:00)
== END 2019-10-07 15:36 | disposition home or self-care (01) | DRG 292 ==
LOC: 3SCARD 17:08
PROVIDERS: ADMIT Internal Medicine Cardiovascular Disease; ATTEND Internal Medicine Cardiovascular Disease
DX: I11.0 Hypertensive heart disease with heart failure (principal); I48.19 Other persistent atrial fibrillation; E11.9 Type 2 diabetes mellitus without complications; E78.5 Hyperlipidemia, unspecified; Z87.891 Personal history of nicotine dependence; F31.9 Bipolar disorder, unspecified; I25.10 Atherosclerotic heart disease of native coronary artery without angina pectoris; I25.5 Ischemic cardiomyopathy; I50.43 Acute on chronic combined systolic (congestive) and diastolic (congestive) heart failure; Z85.51 Personal history of malignant neoplasm of bladder; Z92.3 Personal history of irradiation; Z95.1 Presence of aortocoronary bypass graft; Z95.810 Presence of automatic (implantable) cardiac defibrillator; Z92.21 Personal history of antineoplastic chemotherapy; Z80.42 Family history of malignant neoplasm of prostate; Z80.9 Family history of malignant neoplasm, unspecified; Z90.5 Acquired absence of kidney; Z96.651 Presence of right artificial knee joint; Z98.42 Cataract extraction status, left eye; Z98.41 Cataract extraction status, right eye; K21.9 Gastro-esophageal reflux disease without esophagitis; Z79.01 Long term (current) use of anticoagulants; Z79.4 Long term (current) use of insulin; Z79.899 Other long term (current) drug therapy
CPT/HCPCS: 71046; 80048; 80053; 80162; 81001; 83036; 83880; 85025; 93306

== ENCOUNTER 2019-10-16 02:38 | Observation (INO) | payer MEDICARE, BC ==
[2019-10-16] MEDS ORDERED: ASPIRIN 81 MG PO STA (02:50)
[2019-10-16] MEDS ORDERED: NITROGLYCERIN SL TABS 0.4 MG TAB SUBLINGUAL STA (02:50)
[2019-10-16 03:07] LABS: Anisocytosis Slight; Basophils % (A) 0 %; Eosinophils # (A) 0.2 k/uL (0-0.7); Eosinophils % (A) 2 %; HCT 34.2 % (39.0-53.0); HGB 10.7 gm/dL (13.0-17.5); Hypochromasia Marked; Lymphocytes # (A) 0.9 k/uL (1.0-4.8); Lymphocytes % (A) 8 %; MCH 24.5 pg (25.0-35.0); MCHC 31.1 g/dL (31.0-37.0); MCV 78.9 fL (80.0-100.0); Mean Platelet Volume 7.9; Microcytosis Slight; Monocytes # (A) 0.7 k/uL (0-1.0); Monocytes % (A) 6 %; Neutrophils # (A) 9.2 k/uL (1.3-7.7); Neutrophils % (A) 82 %; Platelet Count 377 k/uL (150-450); RBC 4.34 m/uL (4.30-5.90); RDW 16.3 % (11.5-15.5); WBC 11.2 k/uL (3.8-10.6)
[2019-10-16] MEDS ORDERED: MORPHINE SULFATE 4 MG/ML SYRINGE IV STA (03:10)
[2019-10-16 03:15] LABS: Albumin 4.2 g/dL (3.5-5.0); Calcium 9.3 mg/dL (8.4-10.2); Potassium 4.9 mmol/L (3.5-5.1); Total Bilirubin 0.6 mg/dL (0.2-1.3); Total Protein 7.7 g/dL (6.3-8.2)
[2019-10-16 03:22] LABS: INR 1.2 (<1.2); Partial Thromboplastin Time 24.8 sec (22.0-30.0); Prothrombin Time 12.2 sec (9.0-12.0)
--- NOTE | 2019-10-16 03:22 | XR ---
EXAMINATION TYPE: XR chest 2V DATE OF EXAM: 10/16/2019 COMPARISON: 10/06/2019 HISTORY: Follow-up heart failure. Chest pain. TECHNIQUE: FINDINGS: Heart appears enlarged. There is no heart failure. There is coarsening of the lung markings . There is a left axillary pacemaker. There is no sign of pleural effusion. IMPRESSION: Coarse lung markings suggestive of fibrosis unchanged compared to old exam. No obvious he art failure. Stable mild cardiomegaly.
[2019-10-16] MEDS ORDERED: SODIUM CHLORIDE 0.9% 500 ML 500 ML IV ONE (03:23)
--- NOTE | 2019-10-16 03:27 | ED ---
General Adult HPI - General Source: patient, RN notes reviewed, old records reviewed Mode of arrival: wheelchair Limitations: no limitations <Jose Morales - Last Filed: 10/16/19 03:53> <Alannah Cardenas - Last Filed: 10/16/19 06:37> - General Chief complaint: Chest Pain Stated complaint: Chest Pain Time Seen by Provider: 10/16/19 02:45 - History of Present Illness Initial comments: 79-year-old male patient passed history of ablation, coronary disease, status post coronary artery bypass graft, cardiomyopathy, AICD presents to ED with cheif complaint chest pain. Patient reports that he felt what he describes as a knot, tightness substernally. Reports this began approximately 3 hours prior to presentation. Reports a very mild shortness of breath with it. Patient is anticoagulated on xaralto for which he has been complaint. Denies any other complaints at this time. Systemic: Pt denies fatigue, fever/chills, rash. Pt denies weakness, night sweats, weight loss. Neuro: Pt denies headache, visual disturbances, syncope or pre-syncope. HEENT: Pt denies ocular discharge or irritation, otalgia, rhinorrhea, pharyngitis or notable lymphadenopathy. Cardiopulmonary: Pt denies heart palpitations, dyspnea on exertion. Abdominal/GI: Pt denies abdominal pain, n/v/d. : Pt denies dysuria, burning w/ urination, frequency/urgency. Denies new onset urinary or bowel incontinence. MSK: Pt denies myalgia, loss of strength or function in extremities. Neuro: Pt denies new onset weakness, paresthesias. (Jose Morales) - Related Data Home Medications Medication Instructions Recorded Confirmed Insulin Glargine [Lantus] 80 unit SQ BID 10/04/18 10/03/19 Apixaban [Eliquis] 5 mg PO BID 10/03/19 10/03/19 Aspirin EC [Ecotrin Low Dose] 162 mg PO DAILY 10/03/19 10/03/19 Carvedilol [Coreg] 6.25 mg PO BID 10/03/19 10/03/19 hydrALAZINE HCL [Apresoline] 25 mg PO BID 10/03/19 10/03/19 metFORMIN HCL 1,000 mg PO BID 10/03/19 10/03/19 Previous Rx's Medication Instructions Recorded Atorvastatin [Lipitor] 80 mg PO DAILY tab 11/21/14 Furosemide [Lasix] 20 mg PO BID@0900,1600 #60 tab 10/07/19 INSULIN ASPART (NovoLOG) [NovoLOG 0 unit SQ ACHS vial 10/07/19 (formulary)] Insulin Detemir (Levemir) [Levemir] 70 unit SQ BID@0700,2100 syr 10/07/19 Sacubitril/Valsartan [Entresto 24 1 each PO BID #60 tablet 10/07/19 mg-26 mg Tablet] Venlafaxine HCl [Effexor] 75 mg PO BID tab 10/07/19 glipiZIDE [Glucotrol] 5 mg PO AC-BID #0 tab 10/07/19 lamoTRIgine [LaMICtal] 100 mg PO DAILY tab 10/07/19 Allergies Allergy/AdvReac Type Severity Reaction Status Date / Time No Known Allergies Allergy Verified 10/16/19 02:45 Review of Systems ROS Other: All systems not noted in ROS Statement are negative. <Jose Morales - Last Filed: 10/16/19 03:53> ROS Other: All systems not noted in ROS Statement are negative. <Alannah Cardenas - Last Filed: 10/16/19 06:37> ROS Statement: Those systems with pertinent positive or pertinent negative responses have been documented in the HPI. Past Medical History Past Medical History: Atrial Fibrillation, Coronary Artery Disease (CAD), Cancer, Heart Failure, Diabetes Mellitus, GERD/Reflux, Hyperlipidemia Additional Past Medical History / Comment(s): See Dr Vargas's H&P, hx kidney and bladder cancer- tx with chemo and radiation 2012, "growth on kidney", history of CABG, cardiomyopathy, AICD implantation History of Any Multi-Drug Resistant Organisms: None Reported Past Surgical History: Bladder Surgery, Heart Catheterization, Orthopedic Surgery Additional Past Surgical History / Comment(s): Port-a-cath insertion/later removed. Bilateral cataract , ORIF R ankle with 2 screws,"scraped the bladder" 06-02-16 TOTAL RT KNEE,growth on kidney removed Past Anesthesia/Blood Transfusion Reactions: No Reported Reaction Additional Past Anesthesia/Blood Transfusion Reaction / Comment(s): Pt has never recieved blood. Past Psychological History: Bipolar, Depression Smoking Status: Unknown if ever smoked Past Alcohol Use History: None Reported Past Drug Use History: None Reported - Past Family History Father Family Medical History: Cancer Additional Family Medical History / Comment(s): prostate Mother Family Medical History: No Reported History Additional Family Medical History / Comment(s): Mother had bowel perforations. She at 88 yrs of age. Brother(s) Family Medical History: Cancer Sister(s) Family Medical History: Cancer <Jose RaulsueJose Akiko - Last Filed: 10/16/19 03:53> General Exam Limitations: no limitations <Jose RaulsueJose Akiko - Last Filed: 10/16/19 03:53> - General Exam Comments Initial Comments: Constitutional: NAD, AOX3, Pt has pleasant affect. HEENT: NC/AT, trachea midline, neck supple, no lymphadenopathy. Posterior pharynx non erythematous, without exudates. External ears appear normal, without discharge. Mucous membranes moist. Eyes PERRLA, EOM intact. There is no scleral icterus. No pallor noted. Cardiopulmonary: RRR, no murmurs, rubs or gallops, no JVD noted. Lungs CTAB in anterior and posterior gibson. No peripheral edema. Abdominal exam: Abdomen soft and non-distended. Abdomen non-tender to palpation in all 4 quadrants. Bowel sounds active in LLQ. No hepatosplenomegaly. No ecchymosis Neuro: CN II-XII grossly intact. No nuchal rigidity. No raccon eyes, no garcia sign, no hemotympanum. No cervical spinal tenderness. MSK: No posterior calf tenderness bilaterally, homans sign negative bilaterally. Posterior tibialis and radial pulse +2 bilaterally. Sensation intact in upper and lower extremities. Full active ROM in upper and lower extremities, 5/5 stregnth (AndrewJose Akiko) Course Vital Signs 10/16/19 10/16/19 10/16/19 02:41 03:00 03:13 Temperature 98.4 F Pulse Rate 120 H 122 H 89 Respiratory 18 18 Rate Blood Pressure 112/84 88/69 116/60 O2 Sat by Pulse 96 99 Oximetry 10/16/19 10/16/19 04:03 05:45 Temperature Pulse Rate 100 120 H Respiratory 18 18 Rate Blood Pressure 119/58 126/89 O2 Sat by Pulse 97 98 Oximetry Medical Decision Making - Lab Data Result diagrams: 10/16/19 02:53 10/16/19 02:53 - EKG Data -: EKG Interpreted by Me (and Dr. Cardenas ) <Jose Morales - Last Filed: 10/16/19 03:53> - Lab Data Result diagrams: 10/16/19 02:53 10/16/19 02:53 <Alannah Cardenas - Last Filed: 10/16/19 06:37> - Medical Decision Making 79-year-old male patient passed history of ablation, coronary disease, status post coronary artery bypass graft, cardiomyopathy, AICD presents to ED with cheif complaint chest pain. Patient reports that he felt what he describes as a knot, tightness substernally. Reports this began approximately 3 hours prior to presentation. Reports a very mild shortness of breath with it. Patient is anticoagulated on xaralto for which he has been complaint. Denies any other complaints at this time. Patient no signs are stable, afebrile. Physical exam didn't display acute pathology. Laboratory investigations are significant for very mild troponin elevation. Chest x-ray displayed coarse lung markings suggestive of fibrosis unchanged to prior. No obvious heart failure. EKG is nonischemic. Patient will be admitted for serial troponins, cardiology evaluation. Case discussed with Dr. Cardenas. (Jose Morales) Patient was initially seen and evaluated by the PA. I personally saw and evaluated the patient who is complaining of midepigastric and lower retrosternal pain. Pain was not improved with aspirin and nitro and morphine. He was not improved with GI cocktail. I added on a lipase and amylase to the patient's lab and noted that lipase was elevated, and addition patient was treated with Dilaudid. After the lipase resulted with elevation and ultrasound the gallbl adder was ordered which will be done inpatient (Alannah Cardenas) - Lab Data Lab Results 10/16/19 10/16/19 10/16/19 Range/Units 02:53 02:53 02:53 WBC 11.2 H (3.8-10.6) k/uL RBC 4.34 (4.30-5.90) m/uL Hgb 10.7 L (13.0-17.5) gm/dL Hct 34.2 L (39.0-53.0) % MCV 78.9 L (80.0-100.0) fL MCH 24.5 L (25.0-35.0) pg MCHC 31.1 (31.0-37.0) g/dL RDW 16.3 H (11.5-15.5) % Plt Count 377 (150-450) k/uL Neutrophils % 82 % Lymphocytes % 8 % Monocytes % 6 % Eosinophils % 2 % Basophils % 0 % Neutrophils # 9.2 H (1.3-7.7) k/uL Lymphocytes # 0.9 L (1.0-4.8) k/uL Monocytes # 0.7 (0-1.0) k/uL Eosinophils # 0.2 (0-0.7) k/uL Basophils # 0.0 (0-0.2) k/uL Hypochromasia Marked Anisocytosis Slight Microcytosis Slight PT 12.2 H (9.0-12.0) sec INR 1.2 H (<1.2) APTT 24.8 (22.0-30.0) sec Sodium 140 (137-145) mmol/L Potassium 4.9 (3.5-5.1) mmol/L Chloride 106 (98-107) mmol/L Carbon Dioxide 21 L (22-30) mmol/L Anion Gap 13 mmol/L BUN 35 H (9-20) mg/dL Creatinine 1.48 H (0.66-1.25) mg/dL Est GFR (CKD-EPI)AfAm 51 (>60 ml/min/1.73 sqM) Est GFR (CKD-EPI)NonAf 44 (>60 ml/min/1.73 sqM) Glucose 153 H (74-99) mg/dL Calcium 9.3 (8.4-10.2) mg/dL Magnesium 2.0 (1.6-2.3) mg/dL Total Bilirubin 0.6 (0.2-1.3) mg/dL AST 31 (17-59) U/L ALT 29 (4-49) U/L Alkaline Phosphatase 155 H (38-126) U/L Troponin I (0.000-0.034) ng/mL NT-Pro-B Natriuret Pep pg/mL Total Protein 7.7 (6.3-8.2) g/dL Albumin 4.2 (3.5-5.0) g/dL Amylase (30-110) U/L Lipase (23-300) U/L 10/16/19 10/16/19 10/16/19 Range/Units 02:53 02:53 02:53 WBC (3.8-10.6) k/uL RBC (4.30-5.90) m/uL Hgb (13.0-17.5) gm/dL Hct (39.0-53.0) % MCV (80.0-100.0) fL MCH (25.0-35.0) pg MCHC (31.0-37.0) g/dL RDW (11.5-15.5) % Plt Count (150-450) k/uL Neutrophils % % Lymphocytes % % Monocytes % % Eosinophils % % Basophils % % Neutrophils # (1.3-7.7) k/uL Lymphocytes # (1.0-4.8) k/uL Monocytes # (0-1.0) k/uL Eosinophils # (0-0.7) k/uL Basophils # (0-0.2) k/uL Hypochromasia Anisocytosis Microcytosis PT (9.0-12.0) sec INR (<1.2) APTT (22.0-30.0) sec Sodium (137-145) mmol/L Potassium (3.5-5.1) mmol/L Chloride (98-107) mmol/L Carbon Dioxide (22-30) mmol/L Anion Gap mmol/L BUN (9-20) mg/dL Creatinine (0.66-1.25) mg/dL Est GFR (CKD-EPI)AfAm (>60 ml/min/1.73 sqM) Est GFR (CKD-EPI)NonAf (>60 ml/min/1.73 sqM) Glucose (74-99) mg/dL Calcium (8.4-10.2) mg/dL Magnesium (1.6-2.3) mg/dL Total Bilirubin (0.2-1.3) mg/dL AST (17-59) U/L ALT (4-49) U/L Alkaline Phosphatase (38-126) U/L Troponin I 0.039 H* (0.000-0.034) ng/mL NT-Pro-B Natriuret Pep 2180 pg/mL Total Protein (6.3-8.2) g/dL Albumin (3.5-5.0) g/dL Amylase 90 (30-110) U/L Lipase 525 H (23-300) U/L - EKG Data EKG Comments: Ventricular rate 116, QRS 116, QT/QTC 344/478. Atrial flutter with variabel AV block. No ST elevations or ischemic changes noted. No concern for acute ischemia. (Jose Morales) Disposition Is patient prescribed a controlled substance at d/c from ED?: No <Jose Morales - Last Filed: 10/16/19 03:53> <Alannah Cardenas - Last Filed: 10/16/19 06:37> Clinical Impression: Chest pain Disposition: ADMITTED IP TO THIS HOSP Condition: Serious
[2019-10-16] MEDS ORDERED: NITROGLYCERIN SL TABS 0.4 MG TAB SUBLINGUAL PRN (03:42)
[2019-10-16] MEDS ORDERED: MORPHINE SULFATE 4 MG/ML SYRINGE IV PRN (03:42)
[2019-10-16] MEDS ORDERED: MAG HYDROX/AL HYDROX/SIMETH 30 ML, HYOSCYAMINE ELIXIR 10 ML, LIDOCAINE VISCOUS 2% 10 ML PO STA ×3 (03:52)
[2019-10-16] MEDS ORDERED: NITROGLYCERIN OINT 1 INCH/GM PACKET TOPICAL STA (03:52)
[2019-10-16] MEDS ORDERED: HYDROmorphone 0.5 MG/0.5 ML SYRINGE IVP STA (04:41)
[2019-10-16 04:56] LABS: Amylase 90 U/L (30-110)
[2019-10-16 06:36] LABS: Glucose,Whole Blood 199 mg/dL (75-99)
--- NOTE | 2019-10-16 08:05 | US ---
EXAMINATION TYPE: US gallbladder DATE OF EXAM: 10/16/2019 COMPARISON: CT 10/27/2018 CLINICAL HISTORY: pancreatitis. Pain. Right renal tumor removed 2-3 years ago per patient. Difficult and limited exam due to patient body habitus and overlying bowel gas EXAM MEASUREMENTS: Liver Length: 18.2 cm Gallbladder Wall: 0.2 cm CBD: 0.5 cm Right Kidney: 10.2 x 4.1 x 4.6 cm Pancreas: Obscured by bowel gas Liver: measuring upper limits of normal. There is increased echogenicity of the hepatic parenchyma wi th diminished visualization of the portal triads most commonly relating to hepatic steatosis and limi ting evaluation for underlying hepatic masses. Gallbladder: wnl Evidence for sonographic Pan's sign: No CBD: wnl as visualized, distal portion obscured by bowel gas Right Kidney: No hydronephrosis or masses seen. Contour defect at the mid to upper pole of the daryl x. IMPRESSION: Limited exam secondary to patient body habitus and overlying bowel gas. 1. Sonographic findings most commonly related to hepatic steatosis. Correlate with liver function azalia ts. 2. Obscuration of the pancreas by overlying bowel gas. 3. Contour defect of the right renal cortex is seen at the mid pole and upper pole however the right kidney is suboptimally viewed.
--- NOTE | 2019-10-16 08:43 | P.CRDCN ---
History of Present Illness Consult date: 10/16/19 Requesting physician: Spencer Maldonado Consult reason: chest pain Chief complaint: Chest pain History of present illness: This is a pleasant 79-year-old gentleman who follows regularly with Dr. Vargas in the office, just recently he was in the hospital, last month admitted from the office for congestive cardiac failure. He was discharged home approximately 5 days ago and overall doing well. Patient has a known history of coronary artery disease with prior bypass surgery, persistent atrial fibrillation, ischemic cardiomyopathy, diabetes, hypertension, hyperlipidemia, ischemic cardiomyopathy with prior AICD implantation. Patient states that since his discharge home from the hospital he was overall doing quite well, this morning the patient woke up around 3 AM, states that he had chest tightness across the entire chest. According to the patient it was quite severe. He d enies any heart racing at that time, just having the chest tightness. No more shortness of breath than his usual. Chest x-ray on presentation here showed coarse lung markings suggestive of fibrosis unchanged from prior exam. His EKG on presentation here showed atrial fibrillation with moderately rapid ventricular response. Ultrasound of the gallbladder was performed, sonographic findings most commonly related to hepatic steatosis. Blood pressure on arrival here 112/80 with a heart rate of 20, 96% on room air. Blood pressure this morning 120/70 with a heart rate of 1:30, 92% on room air. White blood cell count 11.2, hemoglobin 10.7, platelet count 377. Sodium 140, potassium 4.9, BUN 35, creatinine 1.4. BNP level 2180. Initial troponin 0.039. At the time of my examination this morning, the patient is currently chest pain-free. His lipase was noted to be 525 on admission. Patient was not reinitiated on home medications on arrival here. We will reinitiate all medications, patient's last dose of Eliquis was last evening. Past Medical History Past Medical History: Atrial Fibrillation, Coronary Artery Disease (CAD), Cancer, Heart Failure, Diabetes Mellitus, GERD/Reflux, Hyperlipidemia Additional Past Medical History / Comment(s): See Dr Vargas's H&P, hx kidney and bladder cancer- tx with chemo and radiation 2012, "growth on kidney", history of CABG, cardiomyopathy, AICD implantation ULCER, KIDNEY STONES History of Any Multi-Drug Resistant Organisms: None Reported Past Surgical History: Bladder Surgery, Heart Catheterization, Orthopedic Surgery Additional Past Surgical History / Comment(s): Port-a-cath insertion/later rem agustín. Bilateral cataract , ORIF R ankle with 2 screws,"scraped the bladder" 06-02-16 TOTAL RT KNEE,growth on kidney removed Past Anesthesia/Blood Transfusion Reactions: No Reported Reaction Additional Past Anesthesia/Blood Transfusion Reaction / Comment(s): Pt has never recieved blood. Past Psychological History: Bipolar, Depression Additional Psychological History / Comment(s): Pt is bipolar and states he does well with his medications. Smoking Status: Unknown if ever smoked Past Alcohol Use History: None Reported Additional Past Alcohol Use History / Comment(s): Pt states he started smoking at age 15. He quit sometime in the or maybe even sooner. He was less than a pack a day smoker. Past Drug Use History: None Reported - Past Family History Father Family Medical History: Cancer Additional Family Medical History / Comment(s): prostate Mother Family Medical History: No Reported History Additional Family Medical History / Comment(s): Mother had bowel perforations. She at 88 yrs of age. Brother(s) Family Medical History: Cancer Sister(s) Family Medical History: Cancer Medications and Allergies Home Medications Medication Instructions Recorded Confirmed Type Atorvastatin [Lipitor] 80 mg PO DAILY tab 11/21/14 10/03/19 Rx Insulin Glargine [Lantus] 80 unit SQ BID 10/04/18 10/03/19 History Apixaban [Eliquis] 5 mg PO BID 10/03/19 10/03/19 History Aspirin EC [Ecotrin Low Dose] 162 mg PO DAILY 10/03/19 10/03/19 History Carvedilol [Coreg] 6.25 mg PO BID 10/03/19 10/03/19 History hydrALAZINE HCL [Apresoline] 25 mg PO BID 10/03/19 10/03/19 History metFORMIN HCL 1,000 mg PO BID 10/03/19 10/03/19 History Furosemide [Lasix] 20 mg PO BID@0900,1600 #60 tab 10/07/19 Rx INSULIN ASPART (NovoLOG) [NovoLOG 0 unit SQ ACHS vial 10/07/19 Rx (formulary)] Insulin Detemir (Levemir) [Levemir] 70 unit SQ BID@0700,2100 syr 10/07/19 Rx Sacubitril/Valsartan [Entresto 24 1 each PO BID #60 tablet 10/07/19 Rx mg-26 mg Tablet] Venlafaxine HCl [Effexor] 75 mg PO BID tab 10/07/19 Rx glipiZIDE [Glucotrol] 5 mg PO AC-BID #0 tab 10/07/19 Rx lamoTRIgine [LaMICtal] 100 mg PO DAILY tab 10/07/19 Rx Allergies Allergy/AdvReac Type Severity Reaction Status Date / Time No Known Allergies Allergy Verified 10/16/19 02:45 Physical Exam Vitals: Vital Signs Temp Pulse Pulse Resp BP BP Pulse Ox 10/16/19 07:45 98.1 F 128 H 22 119/75 92 L 10/16/19 06:34 97.7 F 128 H 18 130/83 94 L 10/16/19 05:45 120 H 18 126/89 98 10/16/19 04:03 100 18 119/58 97 10/16/19 03:13 89 18 116/60 99 10/16/19 03:00 122 H 88/69 10/16/19 02:41 98.4 F 120 H 18 112/84 96 Intake and Output 10/15/19 10/16/19 10/16/19 22:59 06:59 14:59 Other: Voiding Method Toilet Urinal Weight 113.398 kg PHYSICAL EXAMINATION: GENERAL: 78-year-old gentleman in no acute distress at the time of my examining HEENT: Head is atraumatic, normocephalic. Pupils equal, round. Sclera anicteric. Conjunctiva are clear. Mucous membranes of the mouth are moist. Neck is supple. There is no elevated jugular venous pressure. No carotid bruit is heard. HEART EXAMINATION: Heart S1 and S2 irregularly irregular systolic murmur is heard CHEST EXAMINATION: Lungs are clear with mild diminished air entry to the bases posteriorly. ABDOMEN: Soft, nontender. Bowel sounds are heard. No organomegaly noted. EXTREMITIES: 2+ peripheral pulses with 1+ evidence of peripheral edema and no calf tenderness noted. NEUROLOGIC patient is awake, alert and oriented 3 . Results 10/16/19 02:53 10/16/19 02:53 Cardiac Enzymes 10/16/19 10/16/19 Range/Units 02:53 02:53 AST 31 (17-59) U/L Troponin I 0.039 H* (0.000-0.034) ng/mL Coagulation 10/16/19 Range/Units 02:53 PT 12.2 H (9.0-12.0) sec APTT 24.8 (22.0-30.0) sec CBC 10/16/19 Range/Units 02:53 WBC 11.2 H (3.8-10.6) k/uL RBC 4.34 (4.30-5.90) m/uL Hgb 10.7 L (13.0-17.5) gm/dL Hct 34.2 L (39.0-53.0) % Plt Count 377 (150-450) k/uL Comprehensive Metabolic Panel 10/16/19 Range/Units 02:53 Sodium 140 (137-145) mmol/L Potassium 4.9 (3.5-5.1) mmol/L Chloride 106 (98-107) mmol/L Carbon Dioxide 21 L (22-30) mmol/L BUN 35 H (9-20) mg/dL Creatinine 1.48 H (0.66-1.25) mg/dL Glucose 153 H (74-99) mg/dL Calcium 9.3 (8.4-10.2) mg/dL AST 31 (17-59) U/L ALT 29 (4-49) U/L Alkaline Phosphatase 155 H (38-126) U/L Total Protein 7.7 (6.3-8.2) g/dL Albumin 4.2 (3.5-5.0) g/dL Current Medications Generic Name Dose Route Start Last Admin Trade Name Freq PRN Reason Stop Dose Admin Aspirin 325 mg 10/17/19 09:00 Aspirin PO DAILY RADHA Morphine Sulfate 4 mg 10/16/19 03:42 Morphine Sulfate (Inj) IV Q3H PRN Chest Pain Nitroglycerin 0.4 mg 10/16/19 03:42 Nitrostat SUBLINGUAL Q5M PRN Chest Pain Intake and Output 10/15/19 10/16/19 10/16/19 22:59 06:59 14:59 Other: Voiding Method Toilet Urinal Weight 113.398 kg 10/16/19 02:53 10/16/19 02:53 EKG Interpretations (text) EKG shows atrial fibrillation with rapid ventricular response Assessment and Plan Plan: Assessment and plan #1 chest discomfort, rule out possible acute coronary syndrome. Initial troponin 0.039. #2 atrial fibrillation with rapid ventricular response #3 patient has history of persistent atrial fibrillation, on Eliquis for anticoagulation #3 coronary artery disease with prior bypass surgery #4 ischemic cardio myopathy with prior AICD implant #5 hypertension #6 diabetes #7 hyperlipidemia #8 recent hospital admission for congestive heart failure, systolic, chronic #9 renal insufficiency Plan We will resume the patient's home medications. His last dose of Eliquis was last evening, we will not resume the Eliquis, we will start the patient on IV heparin. Obtain 2 subsequent troponins. Optimize heart rate control. Further recommendations to follow. Echocardiogram with Doppler study was performed on October 04 which revealed an ejection fraction of less than 20%, moderate aortic regurg mild mitral regurg and moderate pulmonary hypertension. DNP note has been reviewed, I agree with a documented findings and plan of care. Patient was seen and examined.
[2019-10-16] MEDS: hydrALAZINE HCL 25 MG TAB PO SCH ×2 (08:58→23:05)
[2019-10-16] MEDS: ATORVASTATIN 80 MG TAB PO SCH (08:58)
[2019-10-16] MEDS: CARVEDILOL 6.25 MG TAB PO SCH ×2 (08:58→17:13)
[2019-10-16] MEDS ORDERED: FUROSEMIDE 20 MG TAB PO SCH (09:00)
[2019-10-16] MEDS: HEPARIN SOD,PORK IN 0.45% NACL 25,000 UNIT in 0.45% NACL 1 250ML.BAG IV SCH (09:37)
[2019-10-16] MEDS: SACUBITRIL/VALSARTAN 24 MG-26 MG TABLET PO SCH ×2 (10:08→23:05)
[2019-10-16 12:14] LABS: Glucose,Whole Blood 145 mg/dL (75-99)
[2019-10-16] MEDS: INSULIN ASPART (NovoLOG) 100 UNIT/ML VIAL SQ SCH ×3 (12:18→23:05)
[2019-10-16] MEDS ORDERED: ALPRAZolam 0.25 MG TAB PO PRN (14:25)
[2019-10-16] MEDS ORDERED: ACETAMINOPHEN TAB 500 MG TAB PO PRN (14:25)
[2019-10-16] MEDS ORDERED: HYDROcodone/APAP 5-325MG 1 EACH TAB PO PRN (14:25)
[2019-10-16] MEDS: FUROSEMIDE 10 MG/ML 4 ML VIAL IV SCH (15:00)
[2019-10-16 16:45] LABS: Glucose,Whole Blood 192 mg/dL (75-99)
--- NOTE | 2019-10-16 16:49 | HP ---
HISTORY AND PHYSICAL DATE OF SERVICE: 10/16/2019 CHIEF COMPLAINT: Chest pain. HISTORY OF PRESENT ILLNESS: This 79-year-old gentleman with a past medical history of multiple medical issues, including atrial fibrillation, history of CAD, history of CHF, diabetes mellitus, type 2, hyperlipidemia, history of kidney and bladder cancer, history of bipolar depression, being followed by Dr. Cavanaugh in the outpatient setting, was complaining of chest pain. The pain was felt in the anterior part of the chest, feeling tight substernally about 3 hours before presentation. The patient was admitted for evaluation and treatment. The troponin was found to be 0.03, indeterminate, and EKG showed tachycardia with atrial fibrillation with a fast ventricular rate as well as QS complex and ST-T changes also. Cardiology evaluation is in progress. A gallbladder ultrasound was also done which showed hepatic steatosis. There is no history of any fever, rigor or chills. No history of headache, loss of consciousness, seizures. PAST MEDICAL HISTORY: History of CAD, history of GERD, history of CHF, diabetes mellitus, type 2, history of bipolar depression. HOME MEDICATIONS: 1. Hydralazine 25 mg p.o. b.i.d. 2. Glucotrol 5 mg before meals b.i.d. 3. Entresto 24/26 one p.o. b.i.d. 4. Lasix 20 mg p.o. b.i.d. 5. Coreg 6.25 mg b.i.d. 6. Lipitor 80 mg p.o. daily. 7. Ecotrin 160 mg p.o. daily. 8. Metformin 1000 mg p.o. b.i.d. 9. Lamictal 100 mg p.o. daily. 10.Effexor 75 mg p.o. b.i.d. 11.Lantus units subcutaneously b.i.d. 12.Levemir 70 units subcutaneously b.i.d. 13.NovoLog before meals and at bedtime. 14.Eliquis 5 mg p.o. b.i.d. ALLERGIES: NONE. FAMILY HISTORY: History of prostate cancer in the family. SOCIAL HISTORY: No history of smoking. No history of alcohol intake. REVIEW OF SYSTEMS: ENT: Diminished hearing. Diminished vision. CARDIOVASCULAR SYSTEM: As mentioned earlier. RESPIRATORY SYSTEM: As mentioned earlier. GI: As mentioned earlier. : No dysuria or retention. NERVOUS SYSTEM: No numbness, weakness. ALLERGY/IMMUNOLOGY: No asthma, hayfever. MUSCULOSKELETAL: As mentioned earlier. HEMATOLOGY/ONCOLOGY: No history of anemia. ENDOCRINE: Diabetes mellitus. CONSTITUTIONAL: As mentioned earlier. DERMATOLOGY: Negative. RHEUMATOLOGY: Negative. PSYCHIATRY: As mentioned earlier. PHYSICAL EXAMINATION: Patient alert and oriented x3. Pulse 105, blood pressure 105/71, respiration 24, temperature 98.1, pulse ox 90% on room air. HEENT: Conjunctivae normal. Oral mucosa moist. NECK: No jugular venous distention. No carotid bruit. No lymph node enlargement. CARDIOVASCULAR SYSTEM: S1, S2 muffled. No S3. No S4. RESPIRATORY SYSTEM: Breath sounds diminished at the bases. A few rhonchi. No crackles. ABDOMEN: Soft, non-tender. No mass palpable. LEGS: No edema. No swelling. NERVOUS SYSTEM: Higher functions as mentioned earlier. Moves all 4 limbs. No focal motor or sensory deficit. LYMPHATICS: No lymph node palpable in neck, axillae or groin. SKIN: No ulcer, rash, bleeding. JOINTS: No active deforming arthropathy. LABS/IMAGING: WBC 11.2, hemoglobin 10.7. INR is 1.2. Sodium 140, potassium 4.9. Creatinine is 1.4. Troponins are noted. The chest x-ray, which was personally reviewed by me, showed evidence of CHF and cardiomegaly. Other labs are noted. EKG noted. ASSESSMENT: 1. Chest pain; possible unstable angina. Rule out acute pfq-OE-korvpzn-elevation myocardial infarction with troponin 0.039. 2. Congestive heart failure with acute on chronic systolic dysfunction, ejection fraction less than 20%, with possible cardiomyopathy. 3. Atrial fibrillation with a fast ventricular rate. 4. History of coronary artery disease. 5. History of diabetes mellitus, type 2. 6. History of gastroesophageal reflux disease. 7. Hyperlipidemia. 8. History of kidney and bladder cancer. 9. History of automated implantable cardioverter defibrillator. 10.History of coronary artery disease, coronary artery bypass grafting. 11.History of Port-A-Cath insertion. 12.History of open reduction internal fixation of the ankle. 13.History of bipolar depression. 14.Remote history of nicotine dependence. 15.Obesity with body mass index of 34.9. 16.NO CODE, NO CPR, NO VENT. RECOMMENDATIONS AND DISCUSSION: In this 79-year-old gentleman who presented with multiple complex medical issues, we will monitor the patient closely, continue the current medications, continue symptomatic treatment. Otherwise, we will initiate symptomatic treatment. Resume the home medications. I would also recommend IV Lasix. Resume the home medication once it is confirmed. The prognosis is guarded because of multiple complex medical issues. Further recommendations to follow. ALICIA / JIMN: [id number] / KARLA
[2019-10-16] MEDS: glipiZIDE 5 MG TAB PO SCH (17:13)
[2019-10-16 21:16] LABS: Glucose,Whole Blood 221 mg/dL (75-99)
[2019-10-17 06:56] LABS: Glucose,Whole Blood 86 mg/dL (75-99)
[2019-10-17 07:08] LABS: Anisocytosis Slight; Basophils % (A) 0 %; Eosinophils # (A) 0.1 k/uL (0-0.7); Eosinophils % (A) 1 %; HCT 33.7 % (39.0-53.0); HGB 10.1 gm/dL (13.0-17.5); Hypochromasia Moderate; Lymphocytes # (A) 0.9 k/uL (1.0-4.8); Lymphocytes % (A) 7 %; MCH 23.9 pg (25.0-35.0); MCHC 30.1 g/dL (31.0-37.0); MCV 79.6 fL (80.0-100.0); Mean Platelet Volume 7.6; Microcytosis Slight; Monocytes # (A) 1.3 k/uL (0-1.0); Monocytes % (A) 10 %; Neutrophils # (A) 10.1 k/uL (1.3-7.7); Neutrophils % (A) 80 %; Platelet Count 300 k/uL (150-450); RBC 4.23 m/uL (4.30-5.90); RDW 16.8 % (11.5-15.5); WBC 12.6 k/uL (3.8-10.6)
[2019-10-17 07:29] LABS: Potassium 4.7 mmol/L (3.5-5.1)
[2019-10-17] MEDS: FUROSEMIDE 10 MG/ML 4 ML VIAL IV SCH ×2 (07:33→07:38)
[2019-10-17] MEDS: INSULIN ASPART (NovoLOG) 100 UNIT/ML VIAL SQ SCH ×4 (07:34→21:06)
[2019-10-17] MEDS: CARVEDILOL 6.25 MG TAB PO SCH ×2 (07:38→16:53)
[2019-10-17] MEDS: PANTOPRAZOLE 40 MG TABLET PO SCH (07:38)
[2019-10-17] MEDS: SACUBITRIL/VALSARTAN 24 MG-26 MG TABLET PO SCH ×2 (08:25→21:06)
[2019-10-17] MEDS: ATORVASTATIN 80 MG TAB PO SCH (08:25)
[2019-10-17] MEDS: hydrALAZINE HCL 25 MG TAB PO SCH ×2 (08:25→21:06)
[2019-10-17] MEDS ORDERED: ASPIRIN 325 MG TAB PO SCH (09:00)
[2019-10-17] MEDS ORDERED: ASPIRIN 81 MG PO SCH (09:00)
[2019-10-17 11:28] LABS: Glucose,Whole Blood 79 mg/dL (75-99)
[2019-10-17] MEDS: glipiZIDE 5 MG TAB PO SCH ×2 (11:38→16:53)
[2019-10-17] MEDS: APIXABAN 5 MG TAB PO SCH ×2 (11:40→21:06)
--- NOTE | 2019-10-17 12:14 | P.PN ---
Subjective Progress Note Date: 10/17/19 This is a pleasant 79-year-old gentleman who follows regularly with Dr. Vargas in the office, just recently he was in the hospital, last month admitted from the office for congestive cardiac failure. He was discharged home approximately 5 days ago and overall doing well. Patient has a known history of coronary artery disease with prior bypass surgery, persistent atrial fibrillation, ischemic cardiomyopathy, diabetes, hypertension, hyperlipidemia, ischemic cardiomyopathy with prior AICD implantation. Patient states that since his discharge home from the hospital he was overall doing quite well, this morning the patient woke up around 3 AM, states that he had chest tightness across the entire chest. According to the patient it was quite severe. He denies any heart racing at that time, just having the chest tightness. No more shortness of breath than his usual. Chest x-ray on presentation here showed coarse lung markings suggestive of fibrosis unchanged from prior exam. His EKG on presentation here showed atrial fibrillation with moderately rapid ventricular response. Ultrasound of the gallbladder was performed, sonographic findings most commonly related to hepatic steatosis. Blood pressure on arrival here 112/80 with a heart rate of 20, 96% on room air. Blood pressure this morning 120/70 with a heart rate of 1:30, 92% on room air. White blood cell count 11.2, hemoglobin 10.7, platelet count 377. Sodium 140, potassium 4.9, BUN 35, creatinine 1.4. BNP level 2180. Initial troponin 0.039. At the time of my examination this morning, the patient is currently chest pain-free. His lipase was noted to be 525 on admission. Patient was not reinitiated on home medications on arrival here. We will reinitiate all medications, patient's last dose of Eliquis was last evening. 10/17/2019 Patient seen and examined this morning, he feels well, breathing is stable, denies any further chest discomfort. Blood pressure 122/60 with a heart rate in the 90s, 97% on 2 L of oxygen. White blood cell count 12.6, hemoglobin 10.1, platelet count 300. Sodium 139, potassium 4.7, BUN 41 and creatinine 1.5. Troponins 0.039, 0.031, 0.027. We will discontinue the IV Lasix and start the patient on oral diuretics. Discontinue the IV heparin today plan for possible d ischarge home in the morning. Objective - Vital Signs Vital signs: Vital Signs Temp 98.6 F 10/17/19 08:00 Pulse 113 H 10/17/19 08:00 Resp 20 10/17/19 08:00 BP 122/67 10/17/19 08:00 Pulse Ox 97 10/17/19 08:00 Intake & Output 10/16/19 10/17/19 10/17/19 18:59 06:59 18:59 Intake Total 500 30 10 Output Total 200 Balance 500 30 -190 Weight 113.9 kg Intake: IV 20 30 10 Invasive Line 2 20 30 10 Oral 480 Output: Urine 200 Other: Voiding Method Urinal Urinal Urinal # Voids 1 1 - Exam PHYSICAL EXAMINATION: GENERAL: 78-year-old gentleman in no acute distress at the time of my examining HEENT: Head is atraumatic, normocephalic. Pupils equal, round. Sclera anicteric. Conjunctiva are clear. Mucous membranes of the mouth are moist. Neck is supple. There is no elevated jugular venous pressure. No carotid bruit is heard. HEART EXAMINATION: Heart S1 and S2 irregularly irregular systolic murmur is heard CHEST EXAMINATION: Lungs are clear to auscultation . ABDOMEN: Soft, nontender. Bowel sounds are heard. No organomegaly noted. EXTREMITIES: 2+ peripheral pulses with trace evidence of peripheral edema and no calf tenderness noted. NEUROLOGIC patient is awake, alert and oriented 3 . - Labs CBC & Chem 7: 10/17/19 05:57 10/17/19 05:57 Labs: Abnormal Lab Results - Last 24 Hours (Table) 10/16/19 10/16/19 10/16/19 Range/Units 12:12 16:35 21:15 WBC (3.8-10.6) k/uL RBC (4.30-5.90) m/uL Hgb (13.0-17.5) gm/dL Hct (39.0-53.0) % MCV (80.0-100.0) fL MCH (25.0-35.0) pg MCHC (31.0-37.0) g/dL RDW (11.5-15.5) % Neutrophils # (1.3-7.7) k/uL Lymphocytes # (1.0-4.8) k/uL Monocytes # (0-1.0) k/uL Carbon Dioxide (22-30) mmol/L BUN (9-20) mg/dL Creatinine (0.66-1.25) mg/dL Glucose (74-99) mg/dL POC Glucose (mg/dL) 145 H 192 H 221 H (75-99) mg/dL HDL Cholesterol (40-60) mg/dL 10/17/19 10/17/19 Range/Units 05:57 05:57 WBC 12.6 H (3.8-10.6) k/uL RBC 4.23 L (4.30-5.90) m/uL Hgb 10.1 L (13.0-17.5) gm/dL Hct 33.7 L (39.0-53.0) % MCV 79.6 L (80.0-100.0) fL MCH 23.9 L (25.0-35.0) pg MCHC 30.1 L (31.0-37.0) g/dL RDW 16.8 H (11.5-15.5) % Neutrophils # 10.1 H (1.3-7.7) k/uL Lymphocytes # 0.9 L (1.0-4.8) k/uL Monocytes # 1.3 H (0-1.0) k/uL Carbon Dioxide 19 L (22-30) mmol/L BUN 41 H (9-20) mg/dL Creatinine 1.55 H (0.66-1.25) mg/dL Glucose 72 L (74-99) mg/dL POC Glucose (mg/dL) (75-99) mg/dL HDL Cholesterol 31 L (40-60) mg/dL Assessment and Plan Plan: Assessment and plan #1 chest discomfort, rule out possible acute coronary syndrome. #2 atrial fibrillation with rapid ventricular response #3 patient has history of persistent atrial fibrillation, on Eliquis for anticoagulation #3 coronary artery disease with prior bypass surgery #4 ischemic cardio myopathy with prior AICD implant #5 hypertension #6 diabetes #7 hyperlipidemia #8 recent hospital admission for congestive heart failure, systolic, chronic #9 renal insufficiency Plan We will discontinue the IV Lasix today for the patient on Lasix 40 mg by mouth twice a day. Discontinue IV heparin. Start the patient on Imdur 30 mg daily. You to monitor the patient for 24 hours and plan for possible discharge home in the morning if stable. DNP note has been reviewed, I agree with a documented findings and plan of care. Patient was seen and examined.
[2019-10-17] MEDS: HEPARIN SOD,PORK IN 0.45% NACL 25,000 UNIT in 0.45% NACL 1 250ML.BAG IV SCH (14:34)
--- NOTE | 2019-10-17 16:00 | PN ---
PROGRESS NOTE DATE OF SERVICE: 10/17/2019 This 79-year-old gentleman admitted with chest pain also has history of cardiomyopathy and CHF. Cardiology is following the patient closely. IV Lasix has been initiated. The IV heparin has been discontinued at this time. PHYSICAL EXAMINATION: Patient is alert, oriented x3. Pulse 74, blood pressure 94/56, respiration 22, temperature 98.6, pulse ox 94% on 2 L. HEENT: Conjunctivae normal. NECK: No jugular venous distention. CARDIOVASCULAR SYSTEM: S1, S2 muffled. RESPIRATORY SYSTEM: Breath sounds diminished at the bases. Bilateral scattered rhonchi and crackles. ABDOMEN: Soft, non-tender. LEGS: Bilateral leg edema. NERVOUS SYSTEM: Diffusely weak. LABS: WBC 12.6, hemoglobin 10.1, sodium 139, potassium 4.7. Accu-Cheks 72. ASSESSMENT: 1. Chest pain; possible unstable angina. Rule out acute gju-UD-fepdyjp-elevation myocardial infarction with troponin 0.039, indeterminate. 2. Congestive heart failure with acute on chronic systolic dysfunction, ejection fraction 20%, with possible cardiomyopathy. 3. Atrial fibrillation with fast ventricular rate. 4. History of coronary artery disease. 5. Diabetes mellitus, type 2. 6. Gastroesophageal reflux disease. 7. Hyperlipidemia. 8. History of kidney and bladder cancer. 9. History of automated implantable cardioverter defibrillator. 10.History of coronary artery disease, coronary artery bypass grafting. 11.History of Port-A-Cath insertion. 12.History of open reduction internal fixation of the ankle. 13.History of bipolar depression. 14.Remote history of nicotine dependence. 15.Obesity with body mass index of 34.9. 16.NO CODE, NO CPR, NO VENT. RECOMMENDATIONS AND DISCUSSION: I recommend to continue current medications, continue with symptomatic treatment. Continue with IV Lasix. Monitor fluid/electrolyte balance closely. Gallbladder ultrasound has been done which showed no significant findings at this time. I will repeat a chest x-ray and evaluate the fluid balance once more and continue to monitor. Closely follow with Cardiology. Further recommendations to follow. MMODL / JIMN: [id number] /
[2019-10-17 16:13] LABS: Hemoglobin A1C 7.6 % (4.0-6.0)
[2019-10-17 16:33] VITALS: RESP 20
[2019-10-17 16:37] LABS: Glucose,Whole Blood 251 mg/dL (75-99)
[2019-10-17] MEDS: FUROSEMIDE 40 MG TAB PO SCH (16:53)
[2019-10-17] MEDS: ISOSORBIDE MONONITRATE ER 30 MG TAB.ER.24H PO SCH (19:41)
[2019-10-17 20:50] LABS: Glucose,Whole Blood 214 mg/dL (75-99)
[2019-10-18 06:15] LABS: Glucose,Whole Blood 137 mg/dL (75-99)
[2019-10-18 06:20] LABS: Calcium 8.6 mg/dL (8.4-10.2); Potassium 4.5 mmol/L (3.5-5.1)
[2019-10-18 06:22] LABS: Anisocytosis Slight; Basophils % (A) 0 %; Eosinophils # (A) 0.2 k/uL (0-0.7); Eosinophils % (A) 3 %; HCT 32.1 % (39.0-53.0); HGB 9.9 gm/dL (13.0-17.5); Hypochromasia Moderate; Lymphocytes # (A) 0.9 k/uL (1.0-4.8); Lymphocytes % (A) 10 %; MCH 24.3 pg (25.0-35.0); MCHC 30.8 g/dL (31.0-37.0); MCV 78.8 fL (80.0-100.0); Mean Platelet Volume 7.5; Microcytosis Slight; Monocytes # (A) 0.9 k/uL (0-1.0); Monocytes % (A) 11 %; Neutrophils # (A) 6.4 k/uL (1.3-7.7); Neutrophils % (A) 73 %; Platelet Count 299 k/uL (150-450); RBC 4.08 m/uL (4.30-5.90); RDW 16.7 % (11.5-15.5); WBC 8.7 k/uL (3.8-10.6)
[2019-10-18] MEDS: INSULIN ASPART (NovoLOG) 100 UNIT/ML VIAL SQ SCH ×2 (06:24→12:58)
[2019-10-18] MEDS: PANTOPRAZOLE 40 MG TABLET PO SCH (06:32)
[2019-10-18] MEDS: glipiZIDE 5 MG TAB PO SCH (06:32)
[2019-10-18] MEDS: CARVEDILOL 6.25 MG TAB PO SCH (06:32)
--- NOTE | 2019-10-18 07:39 | XR ---
EXAMINATION TYPE: XR chest 1V portable DATE OF EXAM: 10/18/2019 COMPARISON: 10/16/2019 HISTORY: Congestive heart failure. Follow-up exam. TECHNIQUE: Single frontal view of the chest is obtained. FINDINGS: There are persistent patchy opacities in the right lateral lower lung and overlying the le ft heart border. Cardiomediastinal silhouette is enlarged with post CABG changes and single lead left -sided cardiac device. No sizable pneumothorax. Trace pleural effusions. No acute osseous pathology. IMPRESSION: Stable basilar opacities in comparison to 10/16/2019 that may represent atelectasis or con fluent pulmonary edema. Trace pleural effusions also remain.
[2019-10-18] MEDS ORDERED: ASPIRIN 81 MG PO SCH (09:00)
[2019-10-18] MEDS: SACUBITRIL/VALSARTAN 24 MG-26 MG TABLET PO SCH (09:45)
[2019-10-18] MEDS: FUROSEMIDE 40 MG TAB PO SCH (09:45)
[2019-10-18] MEDS: hydrALAZINE HCL 25 MG TAB PO SCH (09:45)
[2019-10-18] MEDS: ISOSORBIDE MONONITRATE ER 30 MG TAB.ER.24H PO SCH (09:46)
[2019-10-18] MEDS: ATORVASTATIN 80 MG TAB PO SCH (09:46)
[2019-10-18] MEDS: APIXABAN 5 MG TAB PO SCH (09:46)
--- NOTE | 2019-10-18 11:27 | P.PN ---
Subjective Progress Note Date: 10/18/19 This is a pleasant 79-year-old gentleman who follows regularly with Dr. Vargas in the office, just recently he was in the hospital, last month admitted from the office for congestive cardiac failure. He was discharged home approximately 5 days ago and overall doing well. Patient has a known history of coronary artery disease with prior bypass surgery, persistent atrial fibrillation, ischemic cardiomyopathy, diabetes, hypertension, hyperlipidemia, ischemic cardiomyopathy with prior AICD implantation. Patient states that since his discharge home from the hospital he was overall doing quite well, this morning the patient woke up around 3 AM, states that he had chest tightness across the entire chest. According to the patient it was quite severe. He denies any heart racing at that time, just having the chest tightness. No more shortness of breath than his usual. Chest x-ray on presentation here showed coarse lung markings suggestive of fibrosis unchanged from prior exam. His EKG on presentation here showed atrial fibrillation with moderately rapid ventricular response. Ultrasound of the gallbladder was performed, sonographic findings most commonly related to hepatic steatosis. Blood pressure on arrival here 112/80 with a heart rate of 20, 96% on room air. Blood pressure this morning 120/70 with a heart rate of 1:30, 92% on room air. White blood cell count 11.2, hemoglobin 10.7, platelet count 377. Sodium 140, potassium 4.9, BUN 35, creatinine 1.4. BNP level 2180. Initial troponin 0.039. At the time of my examination this morning, the patient is currently chest pain-free. His lipase was noted to be 525 on admission. Patient was not reinitiated on home medications on arrival here. We will reinitiate all medications, patient's last dose of Eliquis was last evening. 10/17/2019 Patient seen and examined this morning, he feels well, breathing is stable, denies any further chest discomfort. Blood pressure 122/60 with a heart rate in the 90s, 97% on 2 L of oxygen. White blood cell count 12.6, hemoglobin 10.1, platelet count 300. Sodium 139, potassium 4.7, BUN 41 and creatinine 1.5. Troponins 0.039, 0.031, 0.027. We will discontinue the IV Lasix and start the patient on oral diuretics. Discontinue the IV heparin today plan for possible d ischarge home in the morning. 10/18/2019 Patient seen and examined this morning sitting up in the chair at bedside. Breathing is stable. Denies any chest discomfort. Hemodynamically stable. Blood pressure 103/56 with a heart rate in the 60s, 99% on room air. BUN today is 51 with a creatinine of 1.8. Objective - Vital Signs Vital signs: Vital Signs Temp 98.2 F 10/18/19 08:00 Pulse 60 10/18/19 08:00 Resp 20 10/18/19 08:00 BP 102/56 10/18/19 08:00 Pulse Ox 99 10/18/19 08:00 Intake & Output 10/17/19 10/18/19 10/18/19 18:59 06:59 18:59 Intake Total 370 100 240 Output Total 200 Balance 170 100 240 Weight 112.6 kg Intake: IV 10 Invasive Line 2 10 Oral 360 100 240 Output: Urine 200 Other: Voiding Method Urinal Urinal Urinal # Voids 1 0 - Exam PHYSICAL EXAMINATION: GENERAL: 78-year-old gentleman in no acute distress at the time of my examining HEENT: Head is atraumatic, normocephalic. Pupils equal, round. Sclera anicteric. Conjunctiva are clear. Mucous membranes of the mouth are moist. Neck is supple. There is no elevated jugular venous pressure. No carotid bruit is heard. HEART EXAMINATION: Heart S1 and S2 irregularly irregular systolic murmur is heard CHEST EXAMINATION: Lungs are clear to auscultation . ABDOMEN: Soft, nontender. Bowel sounds are heard. No organomegaly noted. EXTREMITIES: 2+ peripheral pulses with trace evidence of peripheral edema and no calf tenderness noted. NEUROLOGIC patient is awake, alert and oriented 3 . - Labs CBC & Chem 7: 10/18/19 05:32 10/18/19 05:32 Labs: Abnormal Lab Results - Last 24 Hours (Table) 10/17/19 10/17/19 10/17/19 Range/Units 05:57 16:24 20:35 RBC (4.30-5.90) m/uL Hgb (13.0-17.5) gm/dL Hct (39.0-53.0) % MCV (80.0-100.0) fL MCH (25.0-35.0) pg MCHC (31.0-37.0) g/dL RDW (11.5-15.5) % Lymphocytes # (1.0-4.8) k/uL Sodium (137-145) mmol/L Carbon Dioxide (22-30) mmol/L BUN (9-20) mg/dL Creatinine (0.66-1.25) mg/dL Glucose (74-99) mg/dL POC Glucose (mg/dL) 251 H 214 H (75-99) mg/dL Hemoglobin A1c 7.6 H (4.0-6.0) % 10/18/19 10/18/19 10/18/19 Range/Units 05:32 05:32 06:12 RBC 4.08 L (4.30-5.90) m/uL Hgb 9.9 L (13.0-17.5) gm/dL Hct 32.1 L (39.0-53.0) % MCV 78.8 L (80.0-100.0) fL MCH 24.3 L (25.0-35.0) pg MCHC 30.8 L (31.0-37.0) g/dL RDW 16.7 H (11.5-15.5) % Lymphocytes # 0.9 L (1.0-4.8) k/uL Sodium 136 L (137-145) mmol/L Carbon Dioxide 18 L (22-30) mmol/L BUN 51 H (9-20) mg/dL Creatinine 1.80 H (0.66-1.25) mg/dL Glucose 130 H (74-99) mg/dL POC Glucose (mg/dL) 137 H (75-99) mg/dL Hemoglobin A1c (4.0-6.0) % Assessment and Plan Plan: Assessment and plan #1 chest discomfort, rule out possible acute coronary syndrome. #2 atrial fibrillation with rapid ventricular response #3 patient has history of persistent atrial fibrillation, on Eliquis for anticoagulation #3 coronary artery disease with prior bypass surgery #4 ischemic cardio myopathy with prior AICD implant #5 hypertension #6 diabetes #7 hyperlipidemia #8 recent hospital admission for congestive heart failure, systolic, chronic #9 renal insufficiency Plan Cardiology's perspective, patient may be able to be discharged home today. We'll make him a follow-up appointment to see Dr. Vargas in the office post discharge. We will also order lytes BUN and creatinine in the next 3 days. DNP note has been reviewed, I agree with a documented findings and plan of care. Patient was seen and examined.
[2019-10-18 12:01] VITALS: BP 104/64; PULSE 102; TEMP 98.3
[2019-10-18 12:04] LABS: Glucose,Whole Blood 233 mg/dL (75-99)
--- NOTE | 2019-10-18 18:30 | DS ---
DISCHARGE SUMMARY FINAL DIAGNOSES: 1. Chest pain possible unstable angina. Myocardial infarction ruled out. 2. Troponin 0.03 indeterminate. 3. Congestive heart failure with acute on chronic systolic dysfunction, ejection fraction 20% with possible cardiomyopathy. 4. Atrial fibrillation with fast ventricular rate. 5. History of coronary artery disease. 6. Diabetes mellitus type 2. 7. Gastroesophageal reflux disease. 8. Hyperlipidemia. 9. History of kidney and bladder cancer. 10.History of AICD. 11.History of coronary artery disease, coronary artery bypass grafting. 12.History of Port-A-Cath insertion. 13.History ORIF of the ankle. 14.History of bipolar depression. 15.Remote history of nicotine dependence. 16.Obesity with body mass of 34.9. 17.NO CODE, NO CPR, NO VENT. DISCHARGE DISPOSITION: The patient is being discharged in stable with guarded prognosis. Discharge cleared by Cardiology. HISTORY OF PRESENT ILLNESS: This 79-year-old gentleman with a past medical history of multiple medical problems admitted to the hospital with chest pain. Troponins are indeterminate, around 0.039. Cardiology saw the patient and recommended medical management at this time and follow up with Cardiology in the outpatient setting BUN and creatinine to be followed up in the outpatient closely. Otherwise, the patient being discharged in stable condition. Guarded prognosis. The most recent chest x-ray done today which was personally reviewed by me showed some CHF also. DISCHARGE ADVICE AND MEDICATIONS: 1. Diet is cardiac diet. 2. Activity limited until followup. 3. Follow up with Dr. Cavanaugh in 2-3 days. 4. Follow up with funeral service apprentice as mentioned. 5. Followup chest x-ray and evaluation per primary and Cardiology. DISCHARGE MEDICATIONS: 1. Apresoline 25 mg p.o. b.i.d. 2. Eliquis 5 mg p.o. b.i.d. 3. Lantus 40 units subcu b.i.d. 4. Metformin 1000 mg p.o. b.i.d. 5. Aspirin 81 mg p.o. daily. 6. Coreg 6.25 mg b.i.d. 7. Effexor 75 mg p.o. b.i.d. 8. Entresto 24/26 1 p.o. b.i.d. 9. Glucotrol 5 mg b.i.d. 10.Imdur ER 30 mg p.o. daily. 11.Lamictal 100 mg p.o. daily. 12.Lasix 40 mg p.o. b.i.d. 13.Lipitor 80 mg p.o. daily. Once again the patient is being discharged in stable condition with guarded prognosis. MMANA LAURA / IJN: [id number] /
== END 2019-10-18 14:49 | disposition home or self-care (01) ==
LOC: EC 02:38 → 3SCARD 03:42
PROVIDERS: ADMIT Internal Medicine; ATTEND Internal Medicine
DX: R07.89 Other chest pain (principal); I25.10 Atherosclerotic heart disease of native coronary artery without angina pectoris; I25.5 Ischemic cardiomyopathy; Z95.810 Presence of automatic (implantable) cardiac defibrillator; I48.91 Unspecified atrial fibrillation; E78.5 Hyperlipidemia, unspecified; I11.0 Hypertensive heart disease with heart failure; I50.23 Acute on chronic systolic (congestive) heart failure; E11.9 Type 2 diabetes mellitus without complications; K21.9 Gastro-esophageal reflux disease without esophagitis; E66.9 Obesity, unspecified; Z68.34 Body mass index [BMI] 34.0-34.9, adult; F31.9 Bipolar disorder, unspecified; N28.9 Disorder of kidney and ureter, unspecified; Z95.1 Presence of aortocoronary bypass graft; Z85.528 Personal history of other malignant neoplasm of kidney; Z92.21 Personal history of antineoplastic chemotherapy; Z92.3 Personal history of irradiation; Z85.51 Personal history of malignant neoplasm of bladder; Z79.4 Long term (current) use of insulin; Z79.01 Long term (current) use of anticoagulants; Z79.82 Long term (current) use of aspirin; Z79.84 Long term (current) use of oral hypoglycemic drugs; Z79.899 Other long term (current) drug therapy; Z80.42 Family history of malignant neoplasm of prostate; Z98.41 Cataract extraction status, right eye; Z98.42 Cataract extraction status, left eye
CPT/HCPCS: 96376; 96365; 96366 ×2; 96375 ×2; 93005 ×3; 99285; 36415; 83880; 80061; 80053; 80048 ×2; 82150 ×2; 83690 ×2; 83735; 84484; 85025 ×3; 85610; 85730; 83036; 71045; 71046; 76705; G0378 ×3; J2270; J1940 ×2; J1170; J1644

== ENCOUNTER 2019-11-19 11:52 | Inpatient (IN) | payer MEDICARE, BC ==
[2019-11-19] MEDS ORDERED: FUROSEMIDE 10 MG/ML 4 ML VIAL IV STA (12:16)
--- NOTE | 2019-11-19 12:24 | ED ---
SOB HPI - General Chief Complaint: Shortness of Breath Stated Complaint: leg swelling Time Seen by Provider: 11/19/19 12:03 Source: patient, family, RN notes reviewed, old records reviewed Mode of arrival: wheelchair Limitations: no limitations - History of Present Illness Initial Comments: This is a 79-year-old male with a history of CHF kidney cancer a former smoker among other medical issues who states for the past week he's had progressively worsening shortness of breath exertional dyspnea with edema to his lower extremities. No chest pain no palpitations no fevers chills nausea vomiting sweats no overt cough or phlegm production. MD Complaint: shortness of breath - Related Data Home Medications Medication Instructions Recorded Confirmed Insulin Glargine [Lantus] 40 unit SQ HS 10/04/18 11/19/19 Apixaban [Eliquis] 5 mg PO BID 10/03/19 11/19/19 metFORMIN HCL 1,000 mg PO BID 10/03/19 11/19/19 Atorvastatin [Lipitor] 80 mg PO HS 11/19/19 11/19/19 Carvedilol [Coreg] 12.5 mg PO AC-BID 11/19/19 11/19/19 Cholecalciferol [Vitamin D3 (25 2,000 unit PO DAILY 11/19/19 11/19/19 Mcg = 1000 Iu)] Cyanocobalamin (Vitamin B-12) 1,000 mcg PO DAILY 11/19/19 11/19/19 [Vitamin B-12] Insulin Glargine [Lantus] 10 unit SQ QAM 11/19/19 11/19/19 lamoTRIgine [LaMICtal] 100 mg PO HS 11/19/19 11/19/19 Previous Rx's Medication Instructions Recorded Venlafaxine HCl [Effexor] 75 mg PO BID tab 10/07/19 glipiZIDE [Glucotrol] 5 mg PO AC-BID #0 tab 10/07/19 Aspirin 81 mg PO DAILY 30 Days #30 chew 10/18/19 Furosemide [Lasix] 40 mg PO BID@0900,1600 tab 10/18/19 Allergies Allergy/AdvReac Type Severity Reaction Status Date / Time No Known Allergies Allergy Verified 11/19/19 12:58 Review of Systems ROS Statement: Those systems with pertinent positive or pertinent negative responses have been documented in the HPI. ROS Other: All systems not noted in ROS Statement are negative. Past Medical History Past Medical History: Atrial Fibrillation, Coronary Artery Disease (CAD), Cancer, Heart Failure, Diabetes Mellitus, GERD/Reflux, Hyperlipidemia Additional Past Medical History / Comment(s): See Dr Vargas's H&P, hx kidney and bladder cancer- tx with chemo and radiation 2012, "growth on kidney", history of CABG, cardiomyopathy, AICD implantation ULCER, KIDNEY STONES History of Any Multi-Drug Resistant Organisms: None Reported Past Surgical History: Bladder Surgery, Heart Catheterization, Orthopedic Surge ry Additional Past Surgical History / Comment(s): Port-a-cath insertion/later removed. Bilateral cataract , ORIF R ankle with 2 screws,"scraped the bladder" 06-02-16 TOTAL RT KNEE,growth on kidney removed Past Anesthesia/Blood Transfusion Reactions: No Reported Reaction Additional Past Anesthesia/Blood Transfusion Reaction / Comment(s): Pt has never recieved blood. Past Psychological History: Bipolar, Depression Smoking Status: Unknown if ever smoked Past Alcohol Use History: None Reported Past Drug Use History: None Reported - Past Family History Father Family Medical History: Cancer Additional Family Medical History / Comment(s): prostate Mother Family Medical History: No Reported History Additional Family Medical History / Comment(s): Mother had bowel perforations. She at 88 yrs of age. Brother(s) Family Medical History: Cancer Sister(s) Family Medical History: Cancer General Exam - General Exam Comments Initial Comments: This is a well-developed well-nourished awake alert oriented 3 male her breath this with talking Limitations: no limitations General appearance: alert Head exam: Present: atraumatic, normocephalic, normal inspection Eye exam: Present: normal appearance, PERRL, EOMI. Absent: scleral icterus, conjunctival injection, periorbital swelling ENT exam: Present: normal exam, mucous membranes moist Neck exam: Present: normal inspection, full ROM, other (No overt stridor JVD or bruits). Absent: tenderness, meningismus, lymphadenopathy Respiratory exam: Present: rales, decreased breath sounds. Absent: respiratory distress, wheezes, rhonchi, stridor Cardiovascular Exam: Present: normal rhythm, tachycardia, normal heart sounds. Absent: systolic murmur, diastolic murmur, rubs, gallop, clicks GI/Abdominal exam: Present: soft, normal bowel sounds. Absent: distended, tenderness, guarding, rebound, rigid Extremities exam: Present: full ROM, normal capillary refill, pedal edema. Absent: tenderness, joint swelling, calf tenderness Back exam: Present: normal inspection Neurological exam: Present: alert, oriented X3, CN II-XII intact Psychiatric exam: Present: normal affect, normal mood Skin exam: Present: warm, dry, intact, normal color. Absent: rash Course Vital Signs 11/19/19 11/19/19 11/19/19 11:52 12:30 13:00 Temperature 97.4 F L Pulse Rate 122 H 128 H 129 H Respiratory 20 33 H 32 H Rate Blood Pressure 106/71 121/80 125/82 O2 Sat by Pulse 97 99 Oximetry - Reevaluation(s) Reevaluation #1: 11/19/19 13:46 Reevaluation patient finds feels somewhat improved Medical Decision Making - Medical Decision Making I did discuss findings with patient family as well as with Dr. Perez. Patient be admitted cardiology consultation patient does have CHF. Also has renal insufficiency the elevated lactic acid is likely secondary to the renal status as well as intervascular dehydration. - Lab Data Result diagrams: 11/19/19 12:24 11/19/19 12:24 Lab Results 11/19/19 11/19/19 11/19/19 Range/Units 12:24 12:24 12:24 WBC 8.2 (3.8-10.6) k/uL RBC 4.54 (4.30-5.90) m/uL Hgb 10.6 L (13.0-17.5) gm/dL Hct 34.9 L (39.0-53.0) % MCV 76.9 L (80.0-100.0) fL MCH 23.4 L (25.0-35.0) pg MCHC 30.4 L (31.0-37.0) g/dL RDW 17.2 H (11.5-15.5) % Plt Count 286 (150-450) k/uL Neutrophils % 74 % Lymphocytes % 10 % Monocytes % 9 % Eosinophils % 3 % Basophils % 0 % Neutrophils # 6.1 (1.3-7.7) k/uL Lymphocytes # 0.8 L (1.0-4.8) k/uL Monocytes # 0.8 (0-1.0) k/uL Eosinophils # 0.3 (0-0.7) k/uL Basophils # 0.0 (0-0.2) k/uL Hypochromasia Marked Poikilocytosis Slight Anisocytosis Slight Microcytosis Slight PT 13.3 H (9.0-12.0) sec INR 1.3 H (<1.2) APTT 25.8 (22.0-30.0) sec Sodium 142 (137-145) mmol/L Potassium 5.2 H (3.5-5.1) mmol/L Chloride 104 (98-107) mmol/L Carbon Dioxide 22 (22-30) mmol/L Anion Gap 16 mmol/L BUN 52 H (9-20) mg/dL Creatinine 2.00 H (0.66-1.25) mg/dL Est GFR (CKD-EPI)AfAm 35 (>60 ml/min/1.73 sqM) Est GFR (CKD-EPI)NonAf 31 (>60 ml/min/1.73 sqM) Glucose 133 H (74-99) mg/dL Plasma Lactic Acid Rodriguez (0.7-2.0) mmol/L Calcium 9.1 (8.4-10.2) mg/dL Magnesium 2.1 (1.6-2.3) mg/dL Total Bilirubin 0.6 (0.2-1.3) mg/dL AST 24 (17-59) U/L ALT 19 (4-49) U/L Alkaline Phosphatase 157 H (38-126) U/L Creatine Kinase 77 (55-170) U/L Troponin I (0.000-0.034) ng/mL NT-Pro-B Natriuret Pep pg/mL Total Protein 7.4 (6.3-8.2) g/dL Albumin 3.8 (3.5-5.0) g/dL 11/19/19 11/19/19 11/19/19 Range/Units 12:24 12:24 12:24 WBC (3.8-10.6) k/uL RBC (4.30-5.90) m/uL Hgb (13.0-17.5) gm/dL Hct (39.0-53.0) % MCV (80.0-100.0) fL MCH (25.0-35.0) pg MCHC (31.0-37.0) g/dL RDW (11.5-15.5) % Plt Count (150-450) k/uL Neutrophils % % Lymphocytes % % Monocytes % % Eosinophils % % Basophils % % Neutrophils # (1.3-7.7) k/uL Lymphocytes # (1.0-4.8) k/uL Monocytes # (0-1.0) k/uL Eosinophils # (0-0.7) k/uL Basophils # (0-0.2) k/uL Hypochromasia Poikilocytosis Anisocytosis Microcytosis PT (9.0-12.0) sec INR (<1.2) APTT (22.0-30.0) sec Sodium (137-145) mmol/L Potassium (3.5-5.1) mmol/L Chloride (98-107) mmol/L Carbon Dioxide (22-30) mmol/L Anion Gap mmol/L BUN (9-20) mg/dL Creatinine (0.66-1.25) mg/dL Est GFR (CKD-EPI)AfAm (>60 ml/min/1.73 sqM) Est GFR (CKD-EPI)NonAf (>60 ml/min/1.73 sqM) Glucose (74-99) mg/dL Plasma Lactic Acid Rodriguez 3.1 H* (0.7-2.0) mmol/L Calcium (8.4-10.2) mg/dL Magnesium (1.6-2.3) mg/dL Total Bilirubin (0.2-1.3) mg/dL AST (17-59) U/L ALT (4-49) U/L Alkaline Phosphatase (38-126) U/L Creatine Kinase (55-170) U/L Troponin I 0.023 (0.000-0.034) ng/mL NT-Pro-B Natriuret Pep 2710 pg/mL Total Protein (6.3-8.2) g/dL Albumin (3.5-5.0) g/dL - EKG Data -: EKG Interpreted by Me (EKG shows wide complex tachycardia QRS demonstrated Y complex 120 6H QRS 12) - Radiology Data Radiology results: report reviewed (Review the imaging that show evidence of congestive heart failure. There is evidence of cardiomegaly.), image reviewed Critical Care Time Critical Care Time: Yes Critical Care Time: 32 minutes of critical care time which includes initial presentation with history physical labs x-rays several reevaluation the patient discussed with the patient family regarding findings review of old charting was available discussed with the admitting physician admission orders and documentation of the above Disposition Clinical Impression: Systolic congestive heart failure, Renal insufficiency syndrome, Peripheral edema, Lactic acidosis, Dehydration Disposition: ADMITTED IP TO THIS HOSP Condition: Fair Referrals: Rolly Cavanaugh MD [Primary Care Provider] - 1-2 days
[2019-11-19 12:34] LABS: Anisocytosis Slight; Basophils % (A) 0 %; Eosinophils # (A) 0.3 k/uL (0-0.7); Eosinophils % (A) 3 %; HCT 34.9 % (39.0-53.0); HGB 10.6 gm/dL (13.0-17.5); Hypochromasia Marked; Lymphocytes # (A) 0.8 k/uL (1.0-4.8); Lymphocytes % (A) 10 %; MCH 23.4 pg (25.0-35.0); MCHC 30.4 g/dL (31.0-37.0); MCV 76.9 fL (80.0-100.0); Mean Platelet Volume 7.3; Microcytosis Slight; Monocytes # (A) 0.8 k/uL (0-1.0); Monocytes % (A) 9 %; Neutrophils # (A) 6.1 k/uL (1.3-7.7); Neutrophils % (A) 74 %; Platelet Count 286 k/uL (150-450); Poikilocytosis Slight; RBC 4.54 m/uL (4.30-5.90); RDW 17.2 % (11.5-15.5); WBC 8.2 k/uL (3.8-10.6)
[2019-11-19 12:43] LABS: INR 1.3 (<1.2); Partial Thromboplastin Time 25.8 sec (22.0-30.0); Prothrombin Time 13.3 sec (9.0-12.0)
[2019-11-19 12:44] LABS: Albumin 3.8 g/dL (3.5-5.0); Calcium 9.1 mg/dL (8.4-10.2); Magnesium 2.1 mg/dL (1.6-2.3); Potassium 5.2 mmol/L (3.5-5.1); Total Bilirubin 0.6 mg/dL (0.2-1.3); Total Protein 7.4 g/dL (6.3-8.2)
--- NOTE | 2019-11-19 12:45 | XR ---
EXAMINATION TYPE: XR chest 2V DATE OF EXAM: 11/19/2019 HISTORY: difficulty breathing. REFERENCE: Previous study dated 10/18/2019. FINDINGS: There has been a midline sternotomy. There is a unipolar pacemaker place on the left. The heart is enlarged. There is vascular congestion and pulmonary edema. This has not changed signifi cantly from previous. There is a small left effusion. IMPRESSION: CONTINUING CHANGES OF CONGESTIVE HEART FAILURE.
[2019-11-19] MEDS ORDERED: SODIUM CHLORIDE 0.9% 500 ML 500 ML IV STA (14:21)
[2019-11-19] MEDS: SODIUM CHLORIDE 0.9% 1,000 ML IV SCH (14:28)
[2019-11-19] MEDS ORDERED: FUROSEMIDE 40 MG TAB PO SCH (16:00)
[2019-11-19 17:03] LABS: Glucose,Whole Blood 69 mg/dL (75-99)
[2019-11-19 17:03] LABS: Glucose,Whole Blood 64 mg/dL (75-99)
[2019-11-19 17:25] LABS: Glucose,Whole Blood 66 mg/dL (75-99)
[2019-11-19] MEDS ORDERED: metFORMIN 500 MG TAB PO SCH (17:30)
[2019-11-19] MEDS: glipiZIDE 5 MG TAB PO SCH (17:35)
[2019-11-19 17:51] LABS: Glucose,Whole Blood 80 mg/dL (75-99)
[2019-11-19] MEDS: CARVEDILOL 12.5 MG TAB PO SCH (17:52)
[2019-11-19 20:17] LABS: Glucose,Whole Blood 195 mg/dL (75-99)
[2019-11-19] MEDS: lamoTRIgine 100 MG TAB PO SCH (20:43)
[2019-11-19] MEDS: VENLAFAXINE HCL 75 MG TAB PO SCH (20:43)
[2019-11-19] MEDS: ATORVASTATIN 80 MG TAB PO SCH (20:43)
[2019-11-19] MEDS: APIXABAN 5 MG TAB PO SCH (20:43)
[2019-11-19] MEDS: INSULIN DETEMIR (LEVEMIR) 100 UNIT/ML SYR SQ SCH (20:43)
[2019-11-19] MEDS ORDERED: HEPARIN SODIUM,PORCINE 5,000 UNIT/ML 1 ML VIAL SQ SCH (21:00)
[2019-11-19] MEDS: FUROSEMIDE 10 MG/ML 4 ML VIAL IV SCH (23:08)
--- NOTE | 2019-11-19 23:11 | P.HPIM ---
History of Present Illness H&P Date: 11/19/19 Chief Complaint: Shortness of breath Patient is a 79-year-old male with a known history of chronic atrial fibrillation on anticoagulation with Eliquis, coronary artery disease status post bypass graft, cardiomyopathy status post AICD placement, history of nephrectomy and unilateral kidney, CK D stage III, hypertension, hyperlipidemia, GERD, diabetes type 2 and history of bipolar/depression came to ER with complaints of worsening shortness of breath and exertional dyspnea and bilateral lower extremity increases swelling for the past 2 weeks. Patient does have minimal cough without any sputum production. No sputum production. No complaints of fever or chills. Denied any sick contacts at home. No recent travel. EKG showed wide QRS tachycardia. Chest x-ray showed continuing changes of CHF No leukocytosis. Hemoglobin 10.9, MCV 76.6, elevated RDW. Potassium 5.2, 52 and 2.2, lactic acid 3.1 BNP 2710. Review of Systems Constitutional: Patient denies any fever or chills . No generalized weakness or weight loss. Abdomen: Patient denied nausea vomiting and diarrhea and abdominal pain. Cardiovascular: Patient denies any chest pain. Patient does have short of breath no palpitations. Leg swelling.. Respiratory: patient denied any cough is from production. No shortness of breath Neurologic: Patient denied any numbness or tingling headache. Musculoskeletal: Patient denies any complaints of joint swelling or deformity. Skin: Negative Psychiatric: Negative Endocrine: No heat or cold intolerance. No recent weight gain. Genitourinary: No dysuria or hematuria. All other 14 point ROS negative except the above Past Medical History Past Medical History: Atrial Fibrillation, Coronary Artery Disease (CAD), Cancer, Heart Failure, Diabetes Mellitus, GERD/Reflux, Hyperlipidemia Additional Past Medical History / Comment(s): See Dr Vargas's H&P, hx kidney and bladder cancer- tx with chemo and radiation 2012, "growth on kidney", history of CABG, cardiomyopathy, AICD implantation ULCER, KIDNEY STONES History of Any Multi-Drug Resistant Organisms: None Reported Past Surgical History: Bladder Surgery, Heart Catheterization, Orthopedic Surgery Additional Past Surgical History / Comment(s): Port-a-cath insertion/later removed. Bilateral cataract , ORIF R ankle with 2 screws,"scraped the bladder" 06-02-16 TOTAL RT KNEE,growth on kidney removed Past Anesthesia/Blood Transfusion Reactions: No Reported Reaction Additional Past Anesthesia/Blood Transfusion Reaction / Comment(s): Pt has never recieved blood. Past Psychological History: Bipolar, Depression Additional Psychological History / Comment(s): Pt is bipolar and states he does well with his medications. Smoking Status: Former smoker Additional Past Alcohol Use History / Comment(s): Pt states he started smoking at age 15. He quit sometime in the or maybe even sooner. He was less than a pack a day smoker. Past Drug Use History: None Reported - Past Family History Father Family Medical History: Cancer Additional Family Medical History / Comment(s): prostate Mother Family Medical History: No Reported History Additional Family Medical History / Comment(s): Mother had bowel perforations. She at 88 yrs of age. Brother(s) Family Medical History: Cancer Sister(s) Family Medical History: Cancer Medications and Allergies Home Medications Medication Instructions Recorded Confirmed Type Insulin Glargine [Lantus] 40 unit SQ HS 10/04/18 11/19/19 History Apixaban [Eliquis] 5 mg PO BID 10/03/19 11/19/19 History metFORMIN HCL 1,000 mg PO BID 10/03/19 11/19/19 History Venlafaxine HCl [Effexor] 75 mg PO BID tab 10/07/19 11/19/19 Rx glipiZIDE [Glucotrol] 5 mg PO AC-BID #0 tab 10/07/19 11/19/19 Rx Aspirin 81 mg PO DAILY 30 Days #30 chew 10/18/19 11/19/19 Rx Furosemide [Lasix] 40 mg PO BID@0900,1600 tab 10/18/19 11/19/19 Rx Atorvastatin [Lipitor] 80 mg PO HS 11/19/19 11/19/19 History Carvedilol [Coreg] 12.5 mg PO AC-BID 11/19/19 11/19/19 History Cholecalciferol [Vitamin D3 (25 2,000 unit PO DAILY 11/19/19 11/19/19 History Mcg = 1000 Iu)] Cyanocobalamin (Vitamin B-12) 1,000 mcg PO DAILY 11/19/19 11/19/19 History [Vitamin B-12] Insulin Glargine [Lantus] 10 unit SQ QAM 11/19/19 11/19/19 History lamoTRIgine [LaMICtal] 100 mg PO HS 11/19/19 11/19/19 History Allergies Allergy/AdvReac Type Severity Reaction Status Date / Time No Known Allergies Allergy Verified 11/19/19 12:58 Physical Exam Vitals: Vital Signs Temp Pulse Pulse Resp BP BP Pulse Ox 11/19/19 16:00 132 H 18 11/19/19 15:05 98.5 F 130 H 18 117/82 100 11/19/19 14:24 132 H 18 113/75 100 11/19/19 13:30 129 H 26 H 111/80 100 11/19/19 13:00 129 H 32 H 125/82 99 11/19/19 12:30 128 H 33 H 121/80 11/19/19 11:52 97.4 F L 122 H 20 106/71 97 Intake and Output 11/19/19 11/19/19 11/19/19 06:59 14:59 22:59 Other: Weight 113.398 kg 113.398 kg PHYSICAL EXAMINATION: Patient is lying in the bed comfortably, no acute distress, awake alert and oriented.. HEENT: Normocephalic. Neck is supple. Pupils reactive. Nostrils clear. Oral cavity is moist. Ears reveal no drainage. Neck reveals no JVD, carotid bruits, or thyromegaly. CHEST EXAMINATION: Trachea is central. Symmetrical expansion. Bibasilar diminished air entry and crackles present. No wheezing. Lung gibson clear to auscultation and percussion. CARDIAC: Normal S1, S2 with no gallops. No murmurs . Irregular rhythm. ABDOMEN: Soft. Bowel sounds normal. No organomegaly. No abdominal bruits. Extremities: 2+ bilateral pedal edema. No clubbing or cyanosis Neurologically awake, alert, oriented x3 with well-coordinated movements. No focal deficits noted Skin: No rash or skin lesions. Psychiatric: Coperative. Nonsuicidal Musculoskeletal: No joint swelling or deformity. Normal range of motion. Results CBC & Chem 7: 11/19/19 12:24 11/19/19 12:24 Labs: Abnormal Lab Results - Last 24 Hours (Table) 11/19/19 11/19/19 11/19/19 Range/Units 12:24 12:24 12:24 Hgb 10.6 L (13.0-17.5) gm/dL Hct 34.9 L (39.0-53.0) % MCV 76.9 L (80.0-100.0) fL MCH 23.4 L (25.0-35.0) pg MCHC 30.4 L (31.0-37.0) g/dL RDW 17.2 H (11.5-15.5) % Lymphocytes # 0.8 L (1.0-4.8) k/uL PT 13.3 H (9.0-12.0) sec INR 1.3 H (<1.2) Potassium 5.2 H (3.5-5.1) mmol/L BUN 52 H (9-20) mg/dL Creatinine 2.00 H (0.66-1.25) mg/dL Glucose 133 H (74-99) mg/dL POC Glucose (mg/dL) (75-99) mg/dL Plasma Lactic Acid Rodriguez (0.7-2.0) mmol/L Alkaline Phosphatase 157 H (38-126) U/L 11/19/19 11/19/19 11/19/19 Range/Units 12:24 16:02 16:58 Hgb (13.0-17.5) gm/dL Hct (39.0-53.0) % MCV (80.0-100.0) fL MCH (25.0-35.0) pg MCHC (31.0-37.0) g/dL RDW (11.5-15.5) % Lymphocytes # (1.0-4.8) k/uL PT (9.0-12.0) sec INR (<1.2) Potassium (3.5-5.1) mmol/L BUN (9-20) mg/dL Creatinine (0.66-1.25) mg/dL Glucose (74-99) mg/dL POC Glucose (mg/dL) 64 L (75-99) mg/dL Plasma Lactic Acid Rodriguez 3.1 H* 2.3 H* (0.7-2.0) mmol/L Alkaline Phosphatase (38-126) U/L 11/19/19 11/19/19 11/19/19 Range/Units 17:00 17:22 19:25 Hgb (13.0-17.5) gm/dL Hct (39.0-53.0) % MCV (80.0-100.0) fL MCH (25.0-35.0) pg MCHC (31.0-37.0) g/dL RDW (11.5-15.5) % Lymphocytes # (1.0-4.8) k/uL PT (9.0-12.0) sec INR (<1.2) Potassium (3.5-5.1) mmol/L BUN (9-20) mg/dL Creatinine (0.66-1.25) mg/dL Glucose (74-99) mg/dL POC Glucose (mg/dL) 69 L 66 L (75-99) mg/dL Plasma Lactic Acid Rodriguez 2.3 H* (0.7-2.0) mmol/L Alkaline Phosphatase (38-126) U/L 11/19/19 Range/Units 20:15 Hgb (13.0-17.5) gm/dL Hct (39.0-53.0) % MCV (80.0-100.0) fL MCH (25.0-35.0) pg MCHC (31.0-37.0) g/dL RDW (11.5-15.5) % Lymphocytes # (1.0-4.8) k/uL PT (9.0-12.0) sec INR (<1.2) Potassium (3.5-5.1) mmol/L BUN (9-20) mg/dL Creatinine (0.66-1.25) mg/dL Glucose (74-99) mg/dL POC Glucose (mg/dL) 195 H (75-99) mg/dL Plasma Lactic Acid Rodriguez (0.7-2.0) mmol/L Alkaline Phosphatase (38-126) U/L Thrombosis Risk Factor Assmnt - DVT/VTE Prophylaxis DVT/VTE Prophylaxis: Pharmacologic Prophylaxis ordered - Choose All That Apply Each Risk Factor Represents 3 Points: Age 75 years or older Thrombosis Risk Factor Assessment Total Risk Factor Score: 3 Thrombosis Risk Factor Assessment Level: Moderate Risk Assessment and Plan Assessment: Worsening shortness of breath and leg swelling secondary to CHF Acute on chronic CHF with systolic dysfunction Ischemic cardiomyopathy Chronic atrial fibrillation on anticoagulation with Eliquis Acute on chronic kidney disease stage III. Possible cardiorenal. Mild hyperkalemia secondary to acute kidney injury Lactic acidosis History of nephrectomy due to renal cancer and bladder cancer history Diabetes type 2. Insulin-dependent and also on metformin and glipizide. Hyperlipidemia Coronary artery disease with history of multiple stents placement Bipolar disorder and depression Previous history of smoking GERD Obesity with BMI 34.9 Plan: Patient will be continued on IV Lasix for milligrams twice daily and continue with aspirin statins Coreg and Eliquis. Monitor renal function closely. Metformin is on hold due to lactic acidosis. Continue with Levemir and insulin sliding scale. Follow-up electrolytes and CBC in the morning. Iron profile was ordered. Cardiology will be consulted and further recommendations based on the clinical course. Prognosis is guarded. Time with Patient: Greater than 30
[2019-11-20] MEDS: glipiZIDE 5 MG TAB PO SCH ×2 (06:26→16:53)
[2019-11-20] MEDS: CARVEDILOL 12.5 MG TAB PO SCH ×2 (06:26→16:53)
[2019-11-20 06:27] LABS: Glucose,Whole Blood 85 mg/dL (75-99)
[2019-11-20 07:06] LABS: Anisocytosis Slight; Basophils % (A) 1 %; Eosinophils # (A) 0.3 k/uL (0-0.7); Eosinophils % (A) 4 %; HCT 33.2 % (39.0-53.0); HGB 9.9 gm/dL (13.0-17.5); Hypochromasia Marked; Lymphocytes # (A) 0.8 k/uL (1.0-4.8); Lymphocytes % (A) 11 %; MCH 23.1 pg (25.0-35.0); MCHC 29.8 g/dL (31.0-37.0); MCV 77.6 fL (80.0-100.0); Mean Platelet Volume 7.1; Microcytosis Slight; Monocytes # (A) 0.8 k/uL (0-1.0); Monocytes % (A) 11 %; Neutrophils % (A) 70 %; Platelet Count 236 k/uL (150-450); Poikilocytosis Slight; RBC 4.28 m/uL (4.30-5.90); RDW 16.9 % (11.5-15.5); WBC 7.2 k/uL (3.8-10.6)
[2019-11-20 07:32] LABS: Calcium 8.9 mg/dL (8.4-10.2); Potassium 4.6 mmol/L (3.5-5.1)
--- NOTE | 2019-11-20 09:05 | P.CRDCN ---
History of Present Illness Consult date: 11/20/19 Consult reason: congestive heart failure Chief complaint: Shortness of breath History of present illness: This is a pleasant 79-year-old gentleman who follows regularly with Dr. Vargas in the office. He has a known history of coronary artery disease with prior bypass surgery, persistent atrial fibrillation, ischemic cardiomyopathy with prior AICD implant, this was performed in September 2018, history of diabetes, hypertension, hyperlipidemia. Patient also has history of kidney and bladder cancer with prior chemo and radiation. Presents to the hospital with at least one week duration of progressively worsening shortness of breath. He states that he also noticed a significant increase in his bilateral lower extremity edema. The patient denies any fever or chills at home. Chest x-ray on presentation here showed congestive cardiac failure. EKG showed atrial fibrillation with a rapid ventricular response. Blood pressure 106/70 with a heart rate of 120, afebrile, 98% on room air. White blood cell count is normal, hemoglobin 9.9, platelet count 236. Sodium 139, potassium 4.6, chloride 106, CO2 20, BUN 54, creatinine 1.8. Plasma lactic acid 2.3 on admission, 1.4 this morning, BNP level 2710. Troponin 0.02, 0.03, 0.03. Patient was initiated on IV Lasix in the emergency room. He has been overall diuresing quite well and his weight is down today. Patient continues to be quite short of breath, continues to have lower extremity edema. The patient is currently on Eliquis 5 mg one tablet by mouth twice a day, he is 79 years of age and his creatinine on admission was 2, we will monitor that creatinine closely, if it remains in the 2 range we will consider decreasing the Eliquis at 2-1/2 mg one tablet by mouth twice a day. We will continue the patient on IV Lasix. We will increase the dose of Coreg, patient is not currently on an TERRANCE inhibitor or an angiotensin scarlet because of the creatinine. Past Medical History Past Medical History: Atrial Fibrillation, Coronary Artery Disease (CAD), Cancer, Heart Failure, Diabetes Mellitus, GERD/Reflux, Hyperlipidemia Additional Past Medical History / Comment(s): See Dr Vargas's H&P, hx kidney and bladder cancer- tx with chemo and radiation 2012, "growth on kidney", history of CABG, cardiomyopathy, AICD implantation ULCER, KIDNEY STONES History of Any Multi-Drug Resistant Organisms: None Reported Past Surgical History: Bladder Surgery, Heart Catheterization, Orthopedic Surgery Additional Past Surgical History / Comment(s): Port-a-cath insertion/later removed. Bilateral cataract , ORIF R ankle with 2 screws,"scraped the bladder" 06-02-16 TOTAL RT KNEE,growth on kidney removed Past Anesthesia/Blood Transfusion Reactions: No Reported Reaction Additional Past Anesthesia/Blood Transfusion Reaction / Comment(s): Pt has never recieved blood. Past Psychological History: Bipolar, Depression Additional Psychological History / Comment(s): Pt is bipolar and states he does well with his medications. Smoking Status: Former smoker Additional Past Alcohol Use History / Comment(s): Pt states he started smoking at age 15. He quit sometime in the or maybe even sooner. He was less than a pack a day smoker. Past Drug Use History: None Reported - Past Family History Father Family Medical History: Cancer Additional Family Medical History / Comment(s): prostate Mother Family Medical History: No Reported History Additional Family Medical History / Comment(s): Mother had bowel perforations. She at 88 yrs of age. Brother(s) Family Medical History: Cancer Sister(s) Family Medical History: Cancer Medications and Allergies Home Medications Medication Instructions Recorded Confirmed Type Insulin Glargine [Lantus] 40 unit SQ HS 10/04/18 11/19/19 History Apixaban [Eliquis] 5 mg PO BID 10/03/19 11/19/19 History metFORMIN HCL 1,000 mg PO BID 10/03/19 11/19/19 History Venlafaxine HCl [Effexor] 75 mg PO BID tab 10/07/19 11/19/19 Rx glipiZIDE [Glucotrol] 5 mg PO AC-BID #0 tab 10/07/19 11/19/19 Rx Aspirin 81 mg PO DAILY 30 Days #30 chew 10/18/19 11/19/19 Rx Furosemide [Lasix] 40 mg PO BID@0900,1600 tab 10/18/19 11/19/19 Rx Atorvastatin [Lipitor] 80 mg PO HS 11/19/19 11/19/19 History Carvedilol [Coreg] 12.5 mg PO AC-BID 11/19/19 11/19/19 History Cholecalciferol [Vitamin D3 (25 2,000 unit PO DAILY 11/19/19 11/19/19 History Mcg = 1000 Iu)] Cyanocobalamin (Vitamin B-12) 1,000 mcg PO DAILY 11/19/19 11/19/19 History [Vitamin B-12] Insulin Glargine [Lantus] 10 unit SQ QAM 11/19/19 11/19/19 History lamoTRIgine [LaMICtal] 100 mg PO HS 11/19/19 11/19/19 History Allergies Allergy/AdvReac Type Severity Reaction Status Date / Time No Known Allergies Allergy Verified 11/19/19 12:58 Physical Exam Vitals: Vital Signs Temp Pulse Pulse Resp BP BP Pulse Ox 11/20/19 04:00 120 H 19 106/71 99 11/20/19 00:00 97.6 F 109 H 20 106/75 95 11/19/19 20:00 97.6 F 120 H 20 116/84 95 11/19/19 16:00 132 H 18 11/19/19 15:05 98.5 F 130 H 18 117/82 100 11/19/19 14:24 132 H 18 113/75 100 11/19/19 13:30 129 H 26 H 111/80 100 11/19/19 13:00 129 H 32 H 125/82 99 11/19/19 12:30 128 H 33 H 121/80 11/19/19 11:52 97.4 F L 122 H 20 106/71 97 Intake and Output 11/19/19 11/20/19 11/20/19 22:59 06:59 14:59 Output Total 600 300 Balance -600 -300 Output: Urine 600 300 Other: Voiding Method Toilet Toilet # Voids 2 Weight 113.398 kg 110.6 kg PHYSICAL EXAMINATION: GENERAL: 79-year-old gentleman in no acute distress at the time of my examination HEENT: Head is atraumatic, normocephalic. Pupils equal, round. Sclera anicteric. Conjunctiva are clear. Mucous membranes of the mouth are moist. Neck is supple. There is elevated jugular venous pressure. No carotid bruit is heard. HEART EXAMINATION: Heart S1-S2 irregularly irregular a systolic murmur is heard CHEST EXAMINATION: Lungs are clear with diminished air entry to the bases bilaterally ABDOMEN: Soft, obese, nontender. Bowel sounds are heard. No organomegaly noted. EXTREMITIES: 2+ peripheral pulses with 2+ evidence of peripheral edema and no calf tenderness noted. NEUROLOGIC patient is awake, alert and oriented 3 . Results 11/20/19 06:24 11/20/19 06:24 Cardiac Enzymes 11/19/19 11/19/19 11/19/19 Range/Units 12:24 12:24 19:25 AST 24 (17-59) U/L Troponin I 0.023 0.026 (0.000-0.034) ng/mL 11/20/19 Range/Units 00:32 AST (17-59) U/L Troponin I 0.031 (0.000-0.034) ng/mL Coagulation 11/19/19 Range/Units 12:24 PT 13.3 H (9.0-12.0) sec APTT 25.8 (22.0-30.0) sec CBC 11/19/19 11/20/19 Range/Units 12:24 06:24 WBC 8.2 7.2 (3.8-10.6) k/uL RBC 4.54 4.28 L (4.30-5.90) m/uL Hgb 10.6 L 9.9 L (13.0-17.5) gm/dL Hct 34.9 L 33.2 L (39.0-53.0) % Plt Count 286 236 (150-450) k/uL Comprehensive Metabolic Panel 11/19/19 11/20/19 Range/Units 12:24 06:24 Sodium 142 139 (137-145) mmol/L Potassium 5.2 H 4.6 (3.5-5.1) mmol/L Chloride 104 106 (98-107) mmol/L Carbon Dioxide 22 20 L (22-30) mmol/L BUN 52 H 54 H (9-20) mg/dL Creatinine 2.00 H 1.83 H (0.66-1.25) mg/dL Glucose 133 H 74 (74-99) mg/dL Calcium 9.1 8.9 (8.4-10.2) mg/dL AST 24 (17-59) U/L ALT 19 (4-49) U/L Alkaline Phosphatase 157 H (38-126) U/L Total Protein 7.4 (6.3-8.2) g/dL Albumin 3.8 (3.5-5.0) g/dL Current Medications Generic Name Dose Route Start Last Admin Trade Name Freq PRN Reason Stop Dose Admin Apixaban 5 mg 11/19/19 21:00 11/19/19 20:43 Eliquis PO 5 mg BID [facility] Administration Aspirin 81 mg 11/20/19 09:00 Aspirin PO DAILY [facility] Atorvastatin Calcium 80 mg 11/19/19 21:00 11/19/19 20:43 Lipitor PO 80 mg HS [facility] Administration Carvedilol 12.5 mg 11/19/19 17:30 11/20/19 06:26 Coreg PO 12.5 mg AC-BID [facility] Administration Cholecalciferol 2,000 unit 11/20/19 09:00 Vitamin D3 (25 Mcg = 1000 Iu) PO DAILY [facility] Cyanocobalamin 1,000 mcg 11/20/19 09:00 Vitamin B-12 PO DAILY [facility] Furosemide 40 mg 11/20/19 00:00 11/19/19 23:08 Lasix IV 40 mg Q12H [facility] Administration Glipizide 5 mg 11/19/19 17:30 11/20/19 06:26 Glucotrol PO Not Given AC-BID [facility] Sodium Chloride 1,000 mls @ 20 mls/hr 11/19/19 14:00 11/19/19 14:28 Saline 0.9% IV 20 mls/hr .Q24H [facility] Administration Insulin Detemir 40 unit 11/19/19 21:00 11/19/19 20:43 Levemir SQ 40 unit HS [facility] Administration Insulin Detemir 10 unit 11/20/19 09:00 Levemir SQ QAM [facility] Lamotrigine 100 mg 11/19/19 21:00 11/19/19 20:43 Lamictal PO 100 mg HS [facility] Administration Venlafaxine HCl 75 mg 11/19/19 21:00 11/19/19 20:43 Effexor PO 75 mg BID [facility] Administration Intake and Output 11/19/19 11/20/19 11/20/19 22:59 06:59 14:59 Output Total 600 300 Balance -600 -300 Output: Urine 600 300 Other: Voiding Method Toilet Toilet # Voids 2 Weight 113.398 kg 110.6 kg 11/20/19 06:24 11/20/19 06:24 EKG Interpretations (text) EKG shows atrial fibrillation with a moderately rapid ventricular response Assessment and Plan Plan: Assessment and plan #1 systolic congestive heart failure acute on chronic #2 coronary artery disease with prior bypass surgery #3 chronic persistent atrial fibrillation #4 hypertension #5 diabetes #6 hyperlipidemia #7 ischemic cardiomyopathy with prior AICD #8 acute on chronic renal insufficiency Plan We will obtain an echocardiogram with Doppler study, increase the dose of Coreg to optimize heart rate control. Continue IV Lasix, continue to monitor the intake and output along with daily weights and daily lytes BUN and creatinine. Further recommendations to follow. DNP note has been reviewed, I agree with a documented findings and plan of care. Patient was seen and examined.
[2019-11-20] MEDS: APIXABAN 5 MG TAB PO SCH ×2 (09:46→20:23)
[2019-11-20] MEDS: CHOLECALCIFEROL 1,000 UNIT TAB PO SCH (09:46)
[2019-11-20] MEDS: INSULIN DETEMIR (LEVEMIR) 100 UNIT/ML SYR SQ SCH ×2 (09:46→21:49)
[2019-11-20] MEDS: CYANOCOBALAMIN 500 MCG TAB PO SCH (09:46)
[2019-11-20] MEDS: ASPIRIN 81 MG PO SCH (09:46)
[2019-11-20] MEDS: VENLAFAXINE HCL 75 MG TAB PO SCH ×2 (09:47→20:23)
[2019-11-20] MEDS: FUROSEMIDE 10 MG/ML 4 ML VIAL IV SCH ×2 (09:47→23:30)
[2019-11-20 11:21] LABS: Glucose,Whole Blood 71 mg/dL (75-99)
[2019-11-20] MEDS: LOSARTAN 25 MG TAB PO SCH (11:50)
[2019-11-20] MEDS ORDERED: DEXTROSE 5% IN WATER 100 ML with AMIODARONE 150 MG IV ONE (12:00)
[2019-11-20] MEDS ORDERED: AMIODARONE 360 MG in DEXTROSE 5% IN WATER 200 ML IV ONE ×2 (12:15)
[2019-11-20 15:59] LABS: % Iron Saturation 4.08 (15.00-50.00)
[2019-11-20] MEDS ORDERED: FUROSEMIDE 10 MG/ML 4 ML VIAL IV SCH (16:00)
[2019-11-20 16:34] LABS: Glucose,Whole Blood 122 mg/dL (75-99)
[2019-11-20] MEDS: SODIUM CHLORIDE 0.9% 1,000 ML IV SCH (16:49)
[2019-11-20] MEDS: AMIODARONE 300 MG in DEXTROSE 5% IN WATER 250 ML IV SCH ×2 (19:07)
[2019-11-20] MEDS: ATORVASTATIN 80 MG TAB PO SCH (20:23)
[2019-11-20] MEDS: lamoTRIgine 100 MG TAB PO SCH (20:23)
--- NOTE | 2019-11-20 20:24 | P.PN ---
Progress Note - Text Progress Note Date: 11/20/19 Chief Complaint: Shortness of breath Patient is a 79-year-old patient of Dr. Cavanaugh. history of chronic atrial fibrillation on anticoagulation with Eliquis, coronary artery disease status post bypass graft, cardiomyopathy status post AICD placement, history of nephrectomy and unilateral kidney, CK D stage III, hypertension, hyperlipidemia, GERD, diabetes type 2 and history of bipolar/depression came to ER with complaints of worsening shortness of breath and exertional dyspnea and bilateral lower extremity increases swelling for the past 2 weeks. Patient does have minimal cough without any sputum production. No sputum production. No complaints of fever or chills. Denied any sick contacts at home. No recent travel. Admitted with CHF exacerbation, atrial fibrillation with a rapid ventricular rate. Started on IV Lasix and IV amiodarone. Today-she short of breath. Edema present. Tolerating a diet. Sitting upon a chair. Review of systems: Was done for constitutional, cardiovascular, GI, pulmonary. relevant finding as above Active Medications Apixaban (Eliquis) 5 mg PO BID [facility] Last Admin: 11/20/19 09:46 Dose: 5 mg Documented by: Aspirin (Aspirin) 81 mg PO DAILY [facility] Last Admin: 11/20/19 09:46 Dose: 81 mg Documented by: Atorvastatin Calcium (Lipitor) 80 mg PO HS [facility] Last Admin: 11/19/19 20:43 Dose: 80 mg Documented by: Carvedilol (Coreg) 25 mg PO AC-BID [facility] Last Admin: 11/20/19 16:53 Dose: 25 mg Documented by: Cholecalciferol (Vitamin D3 (25 Mcg = 1000 Iu)) 2,000 unit PO DAILY [facility] Last Admin: 11/20/19 09:46 Dose: 2,000 unit Documented by: Cyanocobalamin (Vitamin B-12) 1,000 mcg PO DAILY [facility] Last Admin: 11/20/19 09:46 Dose: 1,000 mcg Documented by: Furosemide (Lasix) 40 mg IV Q8HR [facility] Last Admin: 11/20/19 16:52 Dose: 40 mg Documented by: Glipizide (Glucotrol) 5 mg PO AC-BID [facility] Last Admin: 11/20/19 16:53 Dose: 5 mg Documented by: Sodium Chloride (Saline 0.9%) 1,000 mls @ 20 mls/hr IV .Q24H [facility] Last Admin: 04/06/20 16:49 Dose: Not Given Documented by: Amiodarone HCl 300 mg/ (Dextrose/Water) 250 mls @ 25 mls/hr IV .Q10H [facility]; Protocol Stop: 11/21/19 12:29 Last Admin: 11/20/19 19:07 Dose: 0.5 mg/min, 25 mls/hr Documented by: Insulin Detemir (Levemir) 40 unit SQ HS [facility] Last Admin: 11/19/19 20:43 Dose: 40 unit Documented by: Insulin Detemir (Levemir) 10 unit SQ QAM [facility] Last Admin: 11/20/19 09:46 Dose: 10 unit Documented by: Lamotrigine (Lamictal) 100 mg PO [facility] Last Admin: 11/19/19 20:43 Dose: 100 mg Documented by: Losartan Potassium (Cozaar) 25 mg PO DAILY [facility] Last Admin: 11/20/19 11:50 Dose: Not Given Documented by: Venlafaxine HCl (Effexor) 75 mg PO BID [facility] Last Admin: 11/20/19 09:47 Dose: 75 mg Documented by: On examination: VITAL SIGNS: 97.6, 129, 22, 87/63, 100% on 2 L GENERAL APPEARANCE: BMI 34, sitting up in a chair, short of breath HEENT: Normal external appearance of nose and ear. Oral cavity normal EYES: Pupils equal. Conjunctiva normal. NECK: JVD unable to assess. Mass not palpable. RESPIRATORY: Respiratory effort increased. Decreased breath sounds. CARDIOVASCULAR: Heart sounds irregular, significant edema present. ABDOMEN: Soft. Liver and spleen not palpable. No tenderness. No mass palpable. PSYCHIATRY: Alert and oriented x3. Mood and affect normal. INVESTIGATIONS, reviewed in the clinical context: White count 7.2 hemoglobin 9.9 potassium 4.6 bun 54 creatinine 1.83 Previous testing: White count 8.2 hemoglobin 10.6 potassium 5.2 bun 52 creatinine 2.0 troponin I 0.0-3 EKG-possible A. fib Chest x-ray film personally reviewed by me-pulmonary edema cardiomegaly BUN/creatinine on October 07 Assessment: Acute on chronic congestive heart failure exacerbation from systolic dysfunction, EF not known, slow to respond. Ischemic cardiomyopathy Persistent atrial fibrillation on anticoagulation with Eliquis, rate uncontrolled Acute kidney injury secondary to cardiorenal syndrome, prerenal -chronic kidney disease stage III. Possible cardiorenal. Mild hyperkalemia secondary to acute kidney injury Lactic acidosis-type II History of nephrectomy due to renal cancer and bladder cancer history Diabetes type 2. Insulin-dependent and also on metformin and glipizide. Hyperlipidemia Coronary artery disease with history of multiple stents placement Bipolar disorder and depression GERD Obesity with BMI 34.9 Plan: We'll put the patient on Lasix drip overnight. Keep a close eye on the electrolytes. Other medication treatment plan to continue.
[2019-11-20] MEDS ORDERED: FUROSEMIDE 100 MG in SODIUM CHLORIDE 0.9% 90 ML IV SCH (20:30)
[2019-11-20 21:36] LABS: Glucose,Whole Blood 81 mg/dL (75-99)
[2019-11-21] MEDS: CARVEDILOL 12.5 MG TAB PO SCH ×2 (06:03→16:46)
[2019-11-21] MEDS: AMIODARONE 300 MG in DEXTROSE 5% IN WATER 250 ML IV SCH ×2 (06:03)
[2019-11-21 06:42] LABS: Glucose,Whole Blood 73 mg/dL (75-99)
[2019-11-21] MEDS: INSULIN DETEMIR (LEVEMIR) 100 UNIT/ML SYR SQ SCH ×2 (08:59→22:49)
[2019-11-21] MEDS: LOSARTAN 25 MG TAB PO SCH (09:05)
[2019-11-21] MEDS: CHOLECALCIFEROL 1,000 UNIT TAB PO SCH (09:06)
[2019-11-21] MEDS: VENLAFAXINE HCL 75 MG TAB PO SCH ×2 (09:06→22:49)
[2019-11-21] MEDS: CYANOCOBALAMIN 500 MCG TAB PO SCH (09:06)
[2019-11-21] MEDS: FUROSEMIDE 10 MG/ML 4 ML VIAL IV SCH (09:06)
[2019-11-21] MEDS: ASPIRIN 81 MG PO SCH (09:06)
[2019-11-21] MEDS: APIXABAN 5 MG TAB PO SCH ×2 (09:06→20:12)
[2019-11-21 09:56] LABS: Calcium 8.9 mg/dL (8.4-10.2); Potassium 5.3 mmol/L (3.5-5.1)
[2019-11-21] MEDS: SODIUM CHLORIDE 0.9% 1,000 ML IV SCH (11:23)
--- NOTE | 2019-11-21 11:23 | P.PN ---
Subjective Progress Note Date: 11/21/19 This is a pleasant 79-year-old gentleman who follows regularly with Dr. Vargas in the office. He has a known history of coronary artery disease with prior bypass surgery, persistent atrial fibrillation, ischemic cardiomyopathy with prior AICD implant, this was performed in September 2018, h istory of diabetes, hypertension, hyperlipidemia. Patient also has history of kidney and bladder cancer with prior chemo and radiation. Presents to the hospital with at least one week duration of progressively worsening shortness of breath. He states that he also noticed a significant increase in his bilateral lower extremity edema. The patient denies any fever or chills at home. Chest x-ray on presentation here showed congestive cardiac failure. EKG showed atrial fibrillation with a rapid ventricular response. Blood pressure 106/70 with a heart rate of 120, afebrile, 98% on room air. White blood cell count is normal, hemoglobin 9.9, platelet count 236. Sodium 139, potassium 4.6, chloride 106, CO2 20, BUN 54, creatinine 1.8. Plasma lactic acid 2.3 on admission, 1.4 this morning, BNP level 2710. Troponin 0.02, 0.03, 0.03. Patient was initiated on IV Lasix in the emergency room. He has been overall diuresing quite well and his weight is down today. Patient continues to be quite short of breath, continues to have lower extremity edema. The patient is currently on Eliquis 5 mg one tablet by mouth twice a day, he is 79 years of age and his creatinine on admission was 2, we will monitor that creatinine closely, if it remains in the 2 range we will consider decreasing the Eliquis at 2-1/2 mg one tablet by mouth twice a day. We will continue the patient on IV Lasix. We will increase the dose of Coreg, patient is not currently on an TERRANCE inhibitor or an angiotensin scarlet because of the creatinine. 11/21/2019 Patient was seen and examined this morning, he continues to feel significantly short of breath, states he does not notice much improvement from his admission here. Labs are pending. Blood pressure 95/50, heart rate 108. Objective - Vital Signs Vital signs: Vital Signs Temp 97.3 F L 11/21/19 08:00 Pulse 111 H 11/21/19 11:19 Resp 18 11/21/19 11:19 BP 95/57 11/21/19 08:00 Pulse Ox 100 11/21/19 08:00 Intake & Output 11/20/19 11/21/19 11/21/19 18:59 06:59 18:59 Intake Total 720 Output Total 300 450 Balance 420 -450 Weight 110.6 kg 111.2 kg Intake: Oral 720 Output: Urine 300 450 Other: Voiding Method Toilet Toilet - Exam PHYSICAL EXAMINATION: GENERAL: 79-year-old gentleman in no acute distress at the time of my examination HEENT: Head is atraumatic, normocephalic. Pupils equal, round. Sclera anicteric. Conjunctiva are clear. Mucous membranes of the mouth are moist. Neck is supple. There is elevated jugular venous pressure. No carotid bruit is heard. HEART EXAMINATION: Heart S1-S2 irregularly irregular a systolic murmur is heard CHEST EXAMINATION: Lungs are clear with diminished air entry to the bases bilaterally ABDOMEN: Soft, obese, nontender. Bowel sounds are heard. No organomegaly noted. EXTREMITIES: 2+ peripheral pulses with 2+ evidence of peripheral edema and no calf tenderness noted. NEUROLOGIC patient is awake, alert and oriented 3 . - Labs CBC & Chem 7: 11/20/19 06:24 11/21/19 09:05 Labs: Abnormal Lab Results - Last 24 Hours (Table) 11/20/19 11/20/19 11/20/19 Range/Units 06:24 11:19 16:33 Potassium (3.5-5.1) mmol/L Carbon Dioxide (22-30) mmol/L BUN (9-20) mg/dL Creatinine (0.66-1.25) mg/dL POC Glucose (mg/dL) 71 L 122 H (75-99) mg/dL Iron 15 L (65-175) ug/dL % Saturation 4.08 L (15.00-50.00) 11/21/19 11/21/19 Range/Units 06:41 09:05 Potassium 5.3 H (3.5-5.1) mmol/L Carbon Dioxide 20 L (22-30) mmol/L BUN 70 H (9-20) mg/dL Creatinine 2.57 H (0.66-1.25) mg/dL POC Glucose (mg/dL) 73 L (75-99) mg/dL Iron (65-175) ug/dL % Saturation (15.00-50.00) Assessment and Plan Plan: Assessment and plan #1 systolic congestive heart failure acute on chronic #2 coronary artery disease with prior bypass surgery #3 chronic persistent atrial fibrillation #4 hypertension #5 diabetes #6 hyperlipidemia #7 ischemic cardiomyopathy with prior AICD #8 acute on chronic renal insufficiency Plan We will discontinue the patient's Cozaar, discontinue IV push Lasix and start the patient on a Lasix drip at 10 mg per hour. Check lytes BUN and creatinine daily and continue to monitor the intake and output. Monitor daily weights. Request consultation with nephrology. DNP note has been reviewed, I agree with a documented findings and plan of care. Patient was seen and examined.
[2019-11-21 11:33] LABS: Glucose,Whole Blood 80 mg/dL (75-99)
[2019-11-21] MEDS: FUROSEMIDE 100 MG in SODIUM CHLORIDE 0.9% 90 ML IV SCH ×2 (13:12→20:19)
--- NOTE | 2019-11-21 16:14 | US ---
EXAMINATION TYPE: US kidneys/renal and bladder DATE OF EXAM: 11/21/2019 COMPARISON: NONE CLINICAL HISTORY: rf. Renal failure. Exam limitations due to body habitus. EXAM MEASUREMENTS: Right Kidney: 8.3 x 3.7 x 3.8 cm Left Kidney: 11.1 x 4.2 x 3.3 cm Right Kidney: Solid mass lower pole 2.7 x 1.9 x 2.8 cm. Left Kidney: No hydronephrosis or masses seen Bladder: Not fully distended. Bilateral Jets seen: No There is no evidence for hydronephrosis at this point in time. No nephrolithiasis is seen. The ur inary bladder is anechoic. IMPRESSION: Atrophic right kidney with solid appearing mass lower pole
[2019-11-21] MEDS: AMIODARONE 200 MG TAB PO SCH ×2 (16:46→20:12)
[2019-11-21] MEDS: MIDODRINE 5 MG TAB PO SCH (16:46)
[2019-11-21 16:56] LABS: Amorphous Sediment,Urine Rare /hpf; Appearance,Urine Turbid (Clear); Bacteria,Urine Occasional /hpf; Bilirubin,Urine Negative (Negative); Blood,Urine Large (Negative); Color,Urine Light Red; Glucose,Urine (UA) Negative (Negative); Granular Casts,Urine 6 /lpf (0); Hyaline Casts,Urine 56 /lpf (0-2); Ketones,Urine Negative (Negative); Leukocyte Esterase,Urine Large (Negative); Mucus,Urine Rare /hpf; Nitrite,Urine Negative (Negative); Protein,Urine 1+ (Negative); RBC,Urine >182 /hpf (0-5); Specific Gravity,Urine 1.015 (1.001-1.035); Squamous Epithelial Cell,Urine 1 /hpf (0-4); Urobilinogen,Urine <2.0 mg/dL (<2.0); WBC,Urine 115 /hpf (0-5)
[2019-11-21 17:13] LABS: Glucose,Whole Blood 122 mg/dL (75-99)
--- NOTE | 2019-11-21 18:47 | CONS ---
CONSULTATION REASON FOR CONSULT: Renal failure. HISTORY OF PRESENT ILLNESS: Patient is an 79-year-old male with history of severe cardiomyopathy, EF less than 20%, chronic lower extremity edema, history of atrial fibrillation, who was admitted to the hospital with complaints of increased shortness of breath and increased lower extremity edema. Patient also has a history of underlying bladder cancer. Patient has a history of right hydronephrosis and follows with Urology. His serum creatinine has been increasing. It was 1.8 yesterday and it has gone up to 2.57. Patient has not had significant urine output. His previous creatinine was about 1.5 to 1.4 mg/dL in September of 2019 and October of 2019. Blood pressure has been running low, with systolic in the 90s to 89 mmHg. Patient denies use of any nonsteroidal anti-inflammatory agents prior to admission. PAST MEDICAL HISTORY: Atrial fibrillation, coronary artery disease, CHF, cardiomyopathy, EF about 20%, gastroesophageal reflux disease, hyperlipidemia, history of bladder cancer, history of right hydronephrosis, previous history of chemo and radiation therapy, history of nephrolithiasis. MEDICATIONS: Medications prior to admission included insulin, Eliquis, metformin, Effexor, Glucotrol, aspirin, Lasix, Lipitor, Coreg, vitamin D, Lamictal. ALLERGIES: NONE. PHYSICAL EXAMINATION: Patient is comfortable, awake. He is not in any acute distress. Alert and oriented. Blood pressure was 89/52, heart rate 107 per minute. Patient is afebrile. EXAMINATION OF THE HEART: S1 and S2. EXAMINATION OF LUNGS: Bilateral breath sounds are heard. ABDOMEN: Soft, non-tender. Obese. Examination of lower extremities shows 3+ edema bilaterally. Chronic skin changes noted. [employer] exam is grossly intact. LABS: Sodium 137, potassium 5.3, chloride 103, CO2 is 20, BUN 70, creatinine 2.57, calcium 8.9. ASSESSMENT: 1. Acute kidney injury, mostly cardiorenal and associated with hypotension, hypoperfusion. Patient is oliguric. However, we will check a postvoid scan to rule out urine retention with his previous history of bladder cancer. Check ultrasound of the kidneys. Check urinalysis. Start the patient on Lasix drip if there is no evidence of obstruction. If urine output and renal function do not improve, we will need to add dobutamine as well. 2. Chronic atrial fibrillation, controlled ventricular response, maintained on Eliquis. 3. History of bladder cancer. 4. Previous history of right hydronephrosis; details not available. We will check ultrasound of the kidneys. 5. Severe cardiomyopathy, ejection fraction 20%. 6. Chronic kidney disease, stage III, secondary to nephrosclerosis. Previous creatinine at about 1.5 to 1.4 in October of 2019 and September of 2019. PLAN: Check UA. Check postvoid bladder scan. Start Lasix drip. Repeat labs in a.m. Hold off on angiotensin receptor blockers. Avoid hypotension. Patient may need dobutamine if renal function and urine output do not improve. Thank you for this consultation. Will continue to follow the patient with you during his hospitalization. MMODL / IJN: [id number] /
--- NOTE | 2019-11-21 19:45 | P.PN ---
Progress Note - Text Progress Note Date: 11/21/19 Chief Complaint: Shortness of breath Patient is a 79-year-old patient of Dr. Cavanaugh. history of chronic atrial fibrillation on anticoagulation with Eliquis, coronary artery disease status post bypass graft, cardiomyopathy status post AICD placement, history of nephrec araceli and unilateral kidney, CK D stage III, hypertension, hyperlipidemia, GERD, diabetes type 2 and history of bipolar/depression came to ER with complaints of worsening shortness of breath and exertional dyspnea and bilateral lower extremity increases swelling for the past 2 weeks. Patient does have minimal cough without any sputum production. No sputum production. No complaints of fever or chills. Denied any sick contacts at home. No recent travel. Admitted with CHF exacerbation, atrial fibrillation with a rapid ventricular rate. Started on IV Lasix and IV amiodarone. Today-continues to be short of breath. Significant edema. Changed over to Lasix drip. Review of systems: Was done for constitutional, cardiovascular, GI, pulmonary. relevant finding as above Active Medications Amiodarone HCl (Cordarone) 200 mg PO TID [facility] Last Admin: 11/21/19 16:46 Dose: 200 mg Documented by: Apixaban (Eliquis) 5 mg PO BID [facility] Last Admin: 11/21/19 09:06 Dose: 5 mg Documented by: Aspirin (Aspirin) 81 mg PO DAILY [facility] Last Admin: 11/21/19 09:06 Dose: 81 mg Documented by: Atorvastatin Calcium (Lipitor) 80 mg PO HS [facility] Last Admin: 11/20/19 20:23 Dose: 80 mg Documented by: Carvedilol (Coreg) 25 mg PO AC-BID [facility] Last Admin: 11/21/19 16:46 Dose: 25 mg Documented by: Cholecalciferol (Vitamin D3 (25 Mcg = 1000 Iu)) 2,000 unit PO DAILY [facility] Last Admin: 11/21/19 09:06 Dose: 2,000 unit Documented by: Cyanocobalamin (Vitamin B-12) 1,000 mcg PO DAILY [facility] Last Admin: 11/21/19 09:06 Dose: 1,000 mcg Documented by: Sodium Chloride (Saline 0.9%) 1,000 mls @ 20 mls/hr IV .Q24H [facility] Last Admin: 11/21/19 11:23 Dose: Not Given Documented by: Furosemide 100 mg/ Sodium (Chloride) 100 mls @ 10 mls/hr IV .Q10H [facility] Last Admin: 11/21/19 13:12 Dose: 10 mg/hr, 10 mls/hr Documented by: Insulin Detemir (Levemir) 40 unit SQ [facility] Last Admin: 11/20/19 21:49 Dose: Not Given Documented by: Insulin Detemir (Levemir) 10 unit SQ QAM [facility] Last Admin: 11/21/19 08:59 Dose: Not Given Documented by: Lamotrigine (Lamictal) 100 mg PO [facility] Last Admin: 11/20/19 20:23 Dose: 100 mg Documented by: Midodrine (Proamatine) 10 mg PO AC-BID [facility] Last Admin: 11/21/19 16:46 Dose: 10 mg Documented by: Venlafaxine HCl (Effexor) 75 mg PO BID [facility] Last Admin: 11/21/19 09:06 Dose: 75 mg Documented by: On examination: VITAL SIGNS: 97.9, 107, 18, 89/52, 98% on 4 L GENERAL APPEARANCE: Sitting up in a chair, short of breath HEENT: Normal external appearance of nose and ear. Oral cavity normal EYES: Pupils equal. Conjunctiva normal. NECK: JVD unable to assess. Mass not palpable. RESPIRATORY: Respiratory effort increased. Decreased breath sounds. Basilar crackles CARDIOVASCULAR: Heart sounds irregular, significant edema present. ABDOMEN: Soft. Liver and spleen not palpable. No tenderness. No mass palpable. PSYCHIATRY: Alert and oriented x3. Mood and affect normal. INVESTIGATIONS, reviewed in the clinical context: Progression 5.3 bun 70 creatinine 2.57 Previous testing: White count 8.2 hemoglobin 10.6 potassium 5.2 bun 52 creatinine 2.0 troponin I 0.0-3 EKG-possible A. fib Chest x-ray film personally reviewed by me-pulmonary edema cardiomegaly BUN/creatinine on October 07. Assessment: Acute on chronic congestive heart failure exacerbation from systolic dysfunction, EF not known, slow to respond. Ischemic cardiomyopathy Persistent atrial fibrillation on anticoagulation with Eliquis, rate around 100 Acute kidney injury secondary to cardiorenal syndrome, prerenal -chronic kidney disease stage III. Possible cardiorenal. Mild hyperkalemia secondary to acute kidney injury Lactic acidosis-type II History of nephrectomy due to renal cancer and bladder cancer history Diabetes type 2. Insulin-dependent and also on metformin and glipizide. Hyperlipidemia Coronary artery disease with history of multiple stents placement Bipolar disorder and depression GERD Obesity with BMI 34.9 Plan: Patient started on Lasix drip earlier today. Hopefully that should improve the renal function and the blood pressure both. Also put the patient will fluid restriction 1600 mL day. Follow electrolytes closely. Discussed with patient.
[2019-11-21] MEDS: lamoTRIgine 100 MG TAB PO SCH (20:12)
[2019-11-21] MEDS: ATORVASTATIN 80 MG TAB PO SCH (20:12)
[2019-11-21 20:31] LABS: Glucose,Whole Blood 59 mg/dL (75-99)
[2019-11-21 20:44] LABS: Glucose,Whole Blood 54 mg/dL (75-99)
[2019-11-21 21:18] LABS: Glucose,Whole Blood 52 mg/dL (75-99)
[2019-11-21 21:49] LABS: Glucose,Whole Blood 72 mg/dL (75-99)
[2019-11-22 03:28] LABS: Glucose,Whole Blood 188 mg/dL (75-99)
[2019-11-22 05:42] LABS: Calcium 8.7 mg/dL (8.4-10.2); Potassium 4.9 mmol/L (3.5-5.1)
[2019-11-22] MEDS: CARVEDILOL 12.5 MG TAB PO SCH ×2 (06:02→16:35)
[2019-11-22 06:03] LABS: Glucose,Whole Blood 191 mg/dL (75-99)
[2019-11-22] MEDS: MIDODRINE 5 MG TAB PO SCH ×3 (06:03→16:34)
[2019-11-22] MEDS: FUROSEMIDE 100 MG in SODIUM CHLORIDE 0.9% 90 ML IV SCH ×2 (06:04→16:37)
--- NOTE | 2019-11-22 09:37 | XR ---
EXAMINATION TYPE: XR chest 1V portable DATE OF EXAM: 11/22/2019 HISTORY: Shortness of breath. COMPARISON: 11/19/2019 TECHNIQUE: Single view of the chest is submitted. FINDINGS: Demonstrated are scattered senescent parenchymal change. Scattered bilateral interstitial infiltrates are nonspecific. Overall appearance is essentially stabl e. The heart is stable. Hilar and mediastinal structures are within normal limits. Degenerative changes are seen of the dorsal spine. IMPRESSION: 1. Scattered bilateral interstitial infiltrates are nonspecific. Overall appearance is essentially s table.
[2019-11-22] MEDS: VENLAFAXINE HCL 75 MG TAB PO SCH ×2 (10:39→21:23)
[2019-11-22] MEDS: CYANOCOBALAMIN 500 MCG TAB PO SCH (10:39)
[2019-11-22] MEDS: AMIODARONE 200 MG TAB PO SCH ×3 (10:39→21:24)
[2019-11-22] MEDS: ASPIRIN 81 MG PO SCH (10:39)
[2019-11-22] MEDS: CHOLECALCIFEROL 1,000 UNIT TAB PO SCH (10:39)
[2019-11-22] MEDS: INSULIN DETEMIR (LEVEMIR) 100 UNIT/ML SYR SQ SCH ×2 (10:39→21:24)
[2019-11-22] MEDS: APIXABAN 2.5 MG TABLET PO SCH ×2 (10:41→21:24)
[2019-11-22] MEDS: DOBUTamine DRIP 500 MG in DEXTROSE/WATER 1 250ML.BAG IV SCH (10:49)
--- NOTE | 2019-11-22 11:37 | P.PN ---
Subjective Progress Note Date: 11/22/19 This is a pleasant 79-year-old gentleman who follows regularly with Dr. Vargas in the office. He has a known history of coronary artery disease with prior bypass surgery, persistent atrial fibrillation, ischemic cardiomyopathy with prior AICD implant, this was performed in September 2018, h istory of diabetes, hypertension, hyperlipidemia. Patient also has history of kidney and bladder cancer with prior chemo and radiation. Presents to the hospital with at least one week duration of progressively worsening shortness of breath. He states that he also noticed a significant increase in his bilateral lower extremity edema. The patient denies any fever or chills at home. Chest x-ray on presentation here showed congestive cardiac failure. EKG showed atrial fibrillation with a rapid ventricular response. Blood pressure 106/70 with a heart rate of 120, afebrile, 98% on room air. White blood cell count is normal, hemoglobin 9.9, platelet count 236. Sodium 139, potassium 4.6, chloride 106, CO2 20, BUN 54, creatinine 1.8. Plasma lactic acid 2.3 on admission, 1.4 this morning, BNP level 2710. Troponin 0.02, 0.03, 0.03. Patient was initiated on IV Lasix in the emergency room. He has been overall diuresing quite well and his weight is down today. Patient continues to be quite short of breath, continues to have lower extremity edema. The patient is currently on Eliquis 5 mg one tablet by mouth twice a day, he is 79 years of age and his creatinine on admission was 2, we will monitor that creatinine closely, if it remains in the 2 range we will consider decreasing the Eliquis at 2-1/2 mg one tablet by mouth twice a day. We will continue the patient on IV Lasix. We will increase the dose of Coreg, patient is not currently on an TERRANCE inhibitor or an angiotensin scarlet because of the creatinine. 11/21/2019 Patient was seen and examined this morning, he continues to feel significantly short of breath, states he does not notice much improvement from his admission here. Labs are pending. Blood pressure 95/50, heart rate 108. 11/22/2019 Patient seen and examined this morning, states that he feels more short of breath today than he did on arrival here. His urine output is minimal. Continues to be hypotensive. Sodium 135, potassium 4.9, BUN 79, creatinine 2.7. We will start the patient on dobutamine drip at 2.5 g, after 10 minutes we'll increase to 5 mics. Obtain a repeat stat chest x-ray. This was discussed by Dr. Juan Major with nephrology this morning as well. Objective - Vital Signs Vital signs: Vital Signs Temp 97.7 F 11/22/19 03:42 Pulse 116 H 11/22/19 03:42 Resp 18 11/22/19 03:42 BP 108/68 11/22/19 03:42 Pulse Ox 95 11/22/19 03:42 Intake & Output 11/21/19 11/22/19 11/22/19 18:59 06:59 18:59 Intake Total 488.667 Output Total 325 Balance 488.667 -325 Weight 115.8 kg Intake: Intake, IV Titration 168.667 Amount Furosemide 100 mg In 168.667 Sodium Chloride 0.9% 90 ml @ 10 MG/HR 10 mls/hr IV .Q10H [facility] Rx#: [id number] Oral 320 Output: Urine 325 Other: Voiding Method Indwelling Catheter # Voids 1 # Bowel Movements 1 - Exam PHYSICAL EXAMINATION: GENERAL: 79-year-old gentleman in no acute distress at the time of my examination HEENT: Head is atraumatic, normocephalic. Pupils equal, round. Sclera anicteric. Conjunctiva are clear. Mucous membranes of the mouth are moist. Nec k is supple. There is elevated jugular venous pressure. No carotid bruit is heard. HEART EXAMINATION: Heart S1-S2 irregularly irregular a systolic murmur is heard CHEST EXAMINATION: Lungs are diminished to the bases bilaterally ABDOMEN: Soft, obese, nontender. Bowel sounds are heard. No organomegaly noted. EXTREMITIES: 2+ peripheral pulses with 2+ evidence of peripheral edema and no calf tenderness noted. NEUROLOGIC patient is awake, alert and oriented 3 . - Labs CBC & Chem 7: 11/20/19 06:24 11/22/19 04:34 Labs: Abnormal Lab Results - Last 24 Hours (Table) 11/21/19 11/21/19 11/21/19 Range/Units 16:41 20:30 20:43 Sodium (137-145) mmol/L Carbon Dioxide (22-30) mmol/L BUN (9-20) mg/dL Creatinine (0.66-1.25) mg/dL Glucose (74-99) mg/dL POC Glucose (mg/dL) 122 H 59 L 54 L (75-99) mg/dL Urine Protein (Negative) Urine Blood (Negative) Ur Leukocyte Esterase (Negative) Urine RBC (0-5) /hpf Urine WBC (0-5) /hpf Urine WBC Clumps (None) /hpf Amorphous Sediment (None) /hpf Urine Bacteria (None) /hpf Hyaline Casts (0-2) /lpf Urine Mucus (None) /hpf 11/21/19 11/21/19 11/21/19 Range/Units 21:00 21:28 Unknown Sodium (137-145) mmol/L Carbon Dioxide (22-30) mmol/L BUN (9-20) mg/dL Creatinine (0.66-1.25) mg/dL Glucose (74-99) mg/dL POC Glucose (mg/dL) 52 L 72 L (75-99) mg/dL Urine Protein 1+ H (Negative) Urine Blood Large H (Negative) Ur Leukocyte Esterase Large H (Negative) Urine RBC >182 H (0-5) /hpf Urine WBC 115 H (0-5) /hpf Urine WBC Clumps Many H (None) /hpf Amorphous Sediment Rare H (None) /hpf Urine Bacteria Occasional H (None) /hpf Hyaline Casts 56 H (0-2) /lpf Urine Mucus Rare H (None) /hpf 11/22/19 11/22/19 11/22/19 Range/Units 02:52 04:34 06:01 Sodium 135 L (137-145) mmol/L Carbon Dioxide 21 L (22-30) mmol/L BUN 79 H (9-20) mg/dL Creatinine 2.70 H (0.66-1.25) mg/dL Glucose 155 H (74-99) mg/dL POC Glucose (mg/dL) 188 H 191 H (75-99) mg/dL Urine Protein (Negative) Urine Blood (Negative) Ur Leukocyte Esterase (Negative) Urine RBC (0-5) /hpf Urine WBC (0-5) /hpf Urine WBC Clumps (None) /hpf Amorphous Sediment (None) /hpf Urine Bacteria (None) /hpf Hyaline Casts (0-2) /lpf Urine Mucus (None) /hpf Assessment and Plan Plan: Assessment and plan #1 systolic congestive heart failure acute on chronic #2 coronary artery disease with prior bypass surgery #3 chronic persistent atrial fibrillation #4 hypertension #5 diabetes #6 hyperlipidemia #7 ischemic cardiomyopathy with prior AICD #8 acute on chronic renal insufficiency Plan From cardiology's perspective, we will continue with the Lasix drip, add dobutamine to his medication regime. Repeat a stat chest x-ray. DNP note has been reviewed, I agree with a documented findings and plan of care. Patient was seen and examined.
[2019-11-22 11:47] LABS: Glucose,Whole Blood 167 mg/dL (75-99)
--- NOTE | 2019-11-22 15:15 | P.CNPUL ---
History of Present Illness Consult date: 11/22/19 Requesting physician: Cris Carrillo Reason for consult: dyspnea Chief complaint: Exertional dyspnea, anasarca History of present illness: 79-year-old male patient of Dr. Cavanaugh, with known history of severe ischemic cardiomyopathy, and ejection fraction of less than 20%, status post AICD place ment, hypertension, diabetes mellitus, hyperlipidemia, persistent atrial fibrillation, coronary artery disease status post bypass grafting, ex-smoker, chronic congestive heart failure with systolic dysfunction, history of kidney and bladder cancer status post chemo and radiation, who presented to the emergency department on 11/19/2019 with complaints of worsening exertional dyspnea, and increased swelling in his lower extremities. He denied any chest pain, palpitations, no fever or chills, no nausea vomiting, no diaphoresis, no cough or phlegm production. Admission chest x-ray showed creased vascular congestion, and pulmonary edema and a small left pleural effusion. Admission blood work was negative for any leukocytosis, white blood cell count was 8.2, hemoglobin is 10.6, mild lymphopenia, INR is 1.3, potassium is 5.2, the rest of the electrolytes were within normal limits, BUN is 52 creatinine is 2.0, patient does have history of chronic kidney disease stage III, this showed signs of infection although patient denies any symptoms, troponins were 0.031, 0.026, 0.031, proBNP was 2710. We were asked to see the patient in consultation. Patient has been started on infusion of Lasix, early infusing at a rate of 10 mg per hour, and dobutamine drip infusing at 5 mics per kilo per minute. A is on oral Eliquis for history of chronic atrial fibrillation he remains in A. fib with a controlled rate of 93 bpm. He is sitting up in the recliner, in no acute distress, on 4 L of oxygen with a pulse ox of 95-98%, he is been afebrile, he has not diuresed significantly despite the Lasix infusion, and today's blood work shows worsening of his renal profile would be on up to 79 and creatinine is up to 2.7. Nephrology is following. Review of Systems All systems: negative Constitutional: Denies chills, Denies fever Eyes: denies blurred vision, denies pain Ears, nose, mouth and throat: Denies headache, Denies sore throat Cardiovascular: Reports decreased exercise tolerance, Reports dyspnea on exertion, Reports leg edema, Reports orthopnea, Denies chest pain, Denies shortness of breath Respiratory: Reports dyspnea, Denies cough Gastrointestinal: Denies abdominal pain, Denies diarrhea, Denies nausea, Denies vomiting Musculoskeletal: Denies myalgias Integumentary: Denies pruritus, Denies rash Neurological: Denies numbness, Denies weakness Psychiatric: Denies anxiety, Denies depression Endocrine: Denies fatigue, Denies weight change Past Medical History Past Medical History: Atrial Fibrillation, Coronary Artery Disease (CAD), Cancer, Heart Failure, Diabetes Mellitus, GERD/Reflux, Hyperlipidemia Additional Past Medical History / Comment(s): See Dr Vargas's H&P, hx kidney and bladder cancer- tx with chemo and radiation 2012, "growth on kidney", history of CABG, cardiomyopathy, AICD implantation ULCER, KIDNEY STONES History of Any Multi-Drug Resistant Organisms: None Reported Past Surgical History: Bladder Surgery, Heart Catheterization, Orthopedic Surgery Additional Past Surgical History / Comment(s): Port-a-cath insertion/later removed. Bilateral cataract , ORIF R ankle with 2 screws,"scraped the bladder" 06-02-16 TOTAL RT KNEE,growth on kidney removed Past Anesthesia/Blood Transfusion Reactions: No Reported Reaction Additional Past Anesthesia/Blood Transfusion Reaction / Comment(s): Pt has never recieved blood. Past Psychological History: Bipolar, Depression Additional Psychological History / Comment(s): Pt is bipolar and states he does well with his medications. Smoking Status: Former smoker Additional Past Alcohol Use History / Comment(s): Pt states he started smoking at age 15. He quit sometime in the or maybe even sooner. He was less than a pack a day smoker. Past Drug Use History: None Reported - Past Family History Father Family Medical History: Cancer Additional Family Medical History / Comment(s): prostate Mother Family Medical History: No Reported History Additional Family Medical History / Comment(s): Mother had bowel perforations. She at 88 yrs of age. Brother(s) Family Medical History: Cancer Sister(s) Family Medical History: Cancer Medications and Allergies Home Medications Medication Instructions Recorded Confirmed Type Insulin Glargine [Lantus] 40 unit SQ HS 10/04/18 11/19/19 History Apixaban [Eliquis] 5 mg PO BID 10/03/19 11/19/19 History metFORMIN HCL 1,000 mg PO BID 10/03/19 11/19/19 History Venlafaxine HCl [Effexor] 75 mg PO BID tab 10/07/19 11/19/19 Rx glipiZIDE [Glucotrol] 5 mg PO AC-BID #0 tab 10/07/19 11/19/19 Rx Aspirin 81 mg PO DAILY 30 Days #30 chew 10/18/19 11/19/19 Rx Furosemide [Lasix] 40 mg PO BID@0900,1600 tab 10/18/19 11/19/19 Rx Atorvastatin [Lipitor] 80 mg PO HS 11/19/19 11/19/19 History Carvedilol [Coreg] 12.5 mg PO AC-BID 11/19/19 11/19/19 History Cholecalciferol [Vitamin D3 (25 2,000 unit PO DAILY 11/19/19 11/19/19 History Mcg = 1000 Iu)] Cyanocobalamin (Vitamin B-12) 1,000 mcg PO DAILY 11/19/19 11/19/19 History [Vitamin B-12] Insulin Glargine [Lantus] 10 unit SQ QAM 11/19/19 11/19/19 History lamoTRIgine [LaMICtal] 100 mg PO HS 11/19/19 11/19/19 History Allergies Allergy/AdvReac Type Severity Reaction Status Date / Time No Known Allergies Allergy Verified 11/19/19 12:58 Physical Exam Vitals: Vital Signs Temp Pulse Resp BP Pulse Ox 11/22/19 03:42 97.7 F 116 H 18 108/68 95 11/22/19 00:02 97.8 F 109 H 18 88/61 98 11/21/19 22:53 97.4 F L 111 H 20 98/68 98 11/21/19 15:01 93 18 11/21/19 14:56 98.2 F 93 18 99/62 96 Intake and Output 11/21/19 11/22/19 11/22/19 22:59 06:59 14:59 Intake Total 391.167 97.5 Output Total 325 Balance 391.167 97.5 -325 Intake: Intake, IV Titration 71.167 97.5 Amount Furosemide 100 mg In 71.167 97.5 Sodium Chloride 0.9% 90 ml @ 10 MG/HR 10 mls/hr IV .Q10H [facility] Rx#: [id number] Oral 320 Output: Urine 325 Other: Voiding Method Indwelling Catheter Indwelling Catheter # Voids 1 # Bowel Movements 1 2 Weight 115.8 kg GENERAL EXAM: Alert, very pleasant, 79-year-old male, on 4 L of oxygen with a pulse ox of 95-98%, sitting up in the recliner, appears to have quite significant generalized edema, anasarca, but no acute respiratory distress HEAD: Normocephalic/atraumatic. EYES: Normal reaction of pupils, equal size. Conjunctiva pink, sclera white. NOSE: Clear with pink turbinates. THROAT: No erythema or exudates. NECK: No masses, no JVD, no thyroid enlargement, no adenopathy. CHEST: No chest wall deformity. Symmetrical expansion. LUNGS: Equal air entry with fine basilar crackles at bilateral bases CVS: Irregular rate and rhythm, normal S1 and S2, no gallops, no murmurs, no rubs ABDOMEN: Soft, nontender. No hepatosplenomegaly, normal bowel sounds, no guarding or rigidity. EXTREMITIES: No clubbing, significant 2+ lower extremity edema, no cyanosis, 2+ pulses and upper and lower extremities. MUSCULOSKELETAL: Muscle strength and tone normal. SPINE: No scoliosis or deformity SKIN: No rashes CENTRAL NERVOUS SYSTEM: Alert and oriented -3. No focal deficits, tone is normal in all 4 extremities. PSYCHIATRIC: Alert and oriented -3. Appropriate affect. Intact judgment and insight. Results - Laboratory Findings CBC and BMP: 11/20/19 06:24 11/22/19 04:34 PT/INR, D-dimer PT 13.3 sec (9.0-12.0) H 11/19/19 12:24 INR 1.3 (<1.2) H 11/19/19 12:24 Abnormal lab findings: Abnormal Labs 11/19/19 11/19/19 11/19/19 12:24 12:24 12:24 RBC Hgb 10.6 L Hct 34.9 L MCV 76.9 L MCH 23.4 L MCHC 30.4 L RDW 17.2 H Lymphocytes # 0.8 L PT 13.3 H INR 1.3 H Sodium Potassium 5.2 H Carbon Dioxide BUN 52 H Creatinine 2.00 H Glucose 133 H POC Glucose (mg/dL) Plasma Lactic Acid Rodriguez Iron % Saturation Alkaline Phosphatase 157 H Urine Protein Urine Blood Ur Leukocyte Esterase Urine RBC Urine WBC Urine WBC Clumps Amorphous Sediment Urine Bacteria Hyaline Casts Urine Mucus 11/19/19 11/19/19 11/19/19 12:24 16:02 16:58 RBC Hgb Hct MCV MCH MCHC RDW Lymphocytes # PT INR Sodium Potassium Carbon Dioxide BUN Creatinine Glucose POC Glucose (mg/dL) 64 L Plasma Lactic Acid Rodriguez 3.1 H* 2.3 H* Iron % Saturation Alkaline Phosphatase Urine Protein Urine Blood Ur Leukocyte Esterase Urine RBC Urine WBC Urine WBC Clumps Amorphous Sediment Urine Bacteria Hyaline Casts Urine Mucus 11/19/19 11/19/19 11/19/19 17:00 17:22 19:25 RBC Hgb Hct MCV MCH MCHC RDW Lymphocytes # PT INR Sodium Potassium Carbon Dioxide BUN Creatinine Glucose POC Glucose (mg/dL) 69 L 66 L Plasma Lactic Acid Rodriguez 2.3 H* Iron % Saturation Alkaline Phosphatase Urine Protein Urine Blood Ur Leukocyte Esterase Urine RBC Urine WBC Urine WBC Clumps Amorphous Sediment Urine Bacteria Hyaline Casts Urine Mucus 11/19/19 11/20/19 11/20/19 20:15 06:24 06:24 RBC 4.28 L Hgb 9.9 L Hct 33.2 L MCV 77.6 L MCH 23.1 L MCHC 29.8 L RDW 16.9 H Lymphocytes # 0.8 L PT INR Sodium Potassium Carbon Dioxide 20 L BUN 54 H Creatinine 1.83 H Glucose POC Glucose (mg/dL) 195 H Plasma Lactic Acid Rodriguez Iron 15 L % Saturation 4.08 L Alkaline Phosphatase Urine Protein Urine Blood Ur Leukocyte Esterase Urine RBC Urine WBC Urine WBC Clumps Amorphous Sediment Urine Bacteria Hyaline Casts Urine Mucus 11/20/19 11/20/19 11/21/19 11:19 16:33 06:41 RBC Hgb Hct MCV MCH MCHC RDW Lymphocytes # PT INR Sodium Potassium Carbon Dioxide BUN Creatinine Glucose POC Glucose (mg/dL) 71 L 122 H 73 L Plasma Lactic Acid Rodriguez Iron % Saturation Alkaline Phosphatase Urine Protein Urine Blood Ur Leukocyte Esterase Urine RBC Urine WBC Urine WBC Clumps Amorphous Sediment Urine Bacteria Hyaline Casts Urine Mucus 11/21/19 11/21/19 11/21/19 09:05 16:41 20:30 RBC Hgb Hct MCV MCH MCHC RDW Lymphocytes # PT INR Sodium Potassium 5.3 H Carbon Dioxide 20 L BUN 70 H Creatinine 2.57 H Glucose POC Glucose (mg/dL) 122 H 59 L Plasma Lactic Acid Rodriguez Iron % Saturation Alkaline Phosphatase Urine Protein Urine Blood Ur Leukocyte Esterase Urine RBC Urine WBC Urine WBC Clumps Amorphous Sediment Urine Bacteria Hyaline Casts Urine Mucus 11/21/19 11/21/19 11/21/19 20:43 21:00 21:28 RBC Hgb Hct MCV MCH MCHC RDW Lymphocytes # PT INR Sodium Potassium Carbon Dioxide BUN Creatinine Glucose POC Glucose (mg/dL) 54 L 52 L 72 L Plasma Lactic Acid Rodriguez Iron % Saturation Alkaline Phosphatase Urine Protein Urine Blood Ur Leukocyte Esterase Urine RBC Urine WBC Urine WBC Clumps Amorphous Sediment Urine Bacteria Hyaline Casts Urine Mucus 11/21/19 11/22/19 11/22/19 Unknown 02:52 04:34 RBC Hgb Hct MCV MCH MCHC RDW Lymphocytes # PT INR Sodium 135 L Potassium Carbon Dioxide 21 L BUN 79 H Creatinine 2.70 H Glucose 155 H POC Glucose (mg/dL) 188 H Plasma Lactic Acid Rodriguez Iron % Saturation Alkaline Phosphatase Urine Protein 1+ H Urine Blood Large H Ur Leukocyte Esterase Large H Urine RBC >182 H Urine WBC 115 H Urine WBC Clumps Many H Amorphous Sediment Rare H Urine Bacteria Occasional H Hyaline Casts 56 H Urine Mucus Rare H 11/22/19 11/22/19 06:01 11:45 RBC Hgb Hct MCV MCH MCHC RDW Lymphocytes # PT INR Sodium Potassium Carbon Dioxide BUN Creatinine Glucose POC Glucose (mg/dL) 191 H 167 H Plasma Lactic Acid Rodriguez Iron % Saturation Alkaline Phosphatase Urine Protein Urine Blood Ur Leukocyte Esterase Urine RBC Urine WBC Urine WBC Clumps Amorphous Sediment Urine Bacteria Hyaline Casts Urine Mucus - Diagnostic Findings Chest x-ray: report reviewed, image reviewed Assessment and Plan Plan: Assessment: #1. Acute exacerbation of chronic congestive heart failure with systolic dysfunction #2. Acute kidney injury likely related to cardiorenal syndrome, diuretic therapy, nephrology is following #3. Acute urinary tract infection, although patient is asymptomatic, we'll start on empiric Rocephin #4. Ischemic cardiomyopathy, with EF of less than 20%, status post AICD implantation #5. Diabetes mellitus #6. History of chronic persistent atrial fibrillation on oral anticoagulation #7. History of chronic kidney disease stage III at baseline, history of right hydronephrosis and patient follows with urology #8. Coronary artery disease status post bypass grafting #9. Hypertension #10. Hyperlipidemia #11. History of bladder cancer Plan: Continue current medical treatment, agree with dobutamine and Lasix infusion, patient still has significant generalized edema, but no acute respiratory distress, today's chest x-ray has been reviewed showing stable findings of scat tered bilateral interstitial infiltrates, related to acute exacerbation of CHF. We'll continue medical treatment, renal profile has worsened, and nephrology is on the case. We'll start IV Rocephin for possibility of underlying urinary tract infection, send a urine culture. Acute intake and output, daily weights. We'll continue to follow and make further recommendations depending on clinical course I performed a history & physical examination of the patient and discussed their management with my nurse practitioner, Vicki Enamorado. I reviewed the nurse practitioner's note and agree with the documented findings and plan of care. Lung sounds are positive for fine rales. The findings and the impression was discussed with the patient. I attest to the documentation by the nurse practiti ramone. Time with Patient: Greater than 30
[2019-11-22] MEDS: SODIUM CHLORIDE 0.9% 1,000 ML IV SCH (15:27)
--- NOTE | 2019-11-22 16:06 | PN ---
PROGRESS NOTE Patient is seen for followup for acute kidney injury. He has severe underlying cardiomyopathy, ejection fraction about 20%. Patient was started on Lasix drip yesterday for significant lower extremity edema and some shortness of breath. Urine output has not been much. Patient had a Bansal catheter placed as he did have urine retention. Renal function has worsened. Creatinine has increased further to 2.7 mg/dL from 2.5 yesterday. Overall, patient states he is feeling more short of breath today. On examination today, blood pressure was 188/61, heart rate 109 per minute, he is afebrile. Examination of the heart S1, S2. Examination of the lungs, bilateral breath sounds are heard. Abdomen is soft, obese. Examination of the lower extremities shows edema 2 to 3+ bilaterally with chronic skin changes bilaterally. PEDIATRIC GENETICIST exam grossly intact. LABS: Show sodium 135, potassium 4.9, chloride 103, CO2 is 21, BUN 79, creatinine 2.7. UA shows more than 182 RBCs, WBCs 115, protein 1+, blood large. ASSESSMENT: 1. Acute kidney injury, associated with hypotension, hypoperfusion as well as cardiorenal syndrome. The patient also had some degree of urine retention currently with indwelling Bansal catheter. Urine output remains borderline. The patient remains volume overloaded. I agree with adding dobutamine to help with the diuresis. Continue with the midodrine for the hypotension. Continue to avoid nephrotoxic agents. Continue with the Lasix drip for now. 2. Severe cardiomyopathy, ejection fraction 20%. 3. Atrial fibrillation, controlled ventricular response maintained on Eliquis. 4. Hematuria, most likely traumatic associated with Bansal catheter placement. 5. Rule out urinary tract infection. The patient is currently asymptomatic. White count has not been elevated. 6. Mild hyperkalemia associated with acute kidney injury. Potassium is down to 4.9 today. PLAN: Agree with dobutamine, continue with Lasix drip. Continue midodrine, repeat labs in a.m. Overall prognosis is guarded. Check urine cultures. MMODL / IJN: [id number] /
[2019-11-22 16:47] LABS: Glucose,Whole Blood 165 mg/dL (75-99)
[2019-11-22 20:51] LABS: Glucose,Whole Blood 186 mg/dL (75-99)
[2019-11-22] MEDS: guaiFENesin 600 MG TABLET.ER PO SCH (21:23)
[2019-11-22] MEDS: lamoTRIgine 100 MG TAB PO SCH (21:24)
[2019-11-22] MEDS: ATORVASTATIN 80 MG TAB PO SCH (21:24)
--- NOTE | 2019-11-22 21:45 | P.PN ---
Progress Note - Text Progress Note Date: 11/22/19 Chief Complaint: Shortness of breath Patient is a 79-year-old patient of Dr. Cavanaugh. history of chronic atrial fibrillation on anticoagulation with Eliquis, coronary artery disease status post bypass graft, cardiomyopathy status post AICD placement, history of nephrec araceli and unilateral kidney, CK D stage III, hypertension, hyperlipidemia, GERD, diabetes type 2 and history of bipolar/depression came to ER with complaints of worsening shortness of breath and exertional dyspnea and bilateral lower extremity increases swelling for the past 2 weeks. Patient does have minimal cough without any sputum production. No sputum production. No complaints of fever or chills. Denied any sick contacts at home. No recent travel. Admitted with CHF exacerbation, atrial fibrillation with a rapid ventricular rate. Started on IV Lasix and IV amiodarone. Today-tired. Short of breath. Edema present. On Lasix drip. Slight hematuria. Started on dobutamine drip earlier Review of systems: Was done for constitutional, cardiovascular, GI, pulmonary. relevant finding as above Active Medications Amiodarone HCl (Cordarone) 200 mg PO TID [facility] Last Admin: 11/22/19 21:24 Dose: 200 mg Documented by: Apixaban (Eliquis) 2.5 mg PO BID [facility] Last Admin: 11/22/19 21:24 Dose: 2.5 mg Documented by: Aspirin (Aspirin) 81 mg PO DAILY [facility] Last Admin: 11/22/19 10:39 Dose: 81 mg Documented by: Atorvastatin Calcium (Lipitor) 80 mg PO HS [facility] Last Admin: 11/22/19 21:24 Dose: 80 mg Documented by: Carvedilol (Coreg) 25 mg PO AC-BID [facility] Last Admin: 11/22/19 16:35 Dose: 25 mg Documented by: Cholecalciferol (Vitamin D3 (25 Mcg = 1000 Iu)) 2,000 unit PO DAILY [facility] Last Admin: 11/22/19 10:39 Dose: 2,000 unit Documented by: Cyanocobalamin (Vitamin B-12) 1,000 mcg PO DAILY [facility] Last Admin: 11/22/19 10:39 Dose: 1,000 mcg Documented by: Guaifenesin (Mucinex) 1,200 mg PO Q12HR [facility] Last Admin: 11/22/19 21:23 Dose: 1,200 mg Documented by: Sodium Chloride (Saline 0.9%) 1,000 mls @ 20 mls/hr IV .Q24H [facility] Last Admin: 11/22/19 15:27 Dose: Not Given Documented by: Furosemide 100 mg/ Sodium (Chloride) 100 mls @ 10 mls/hr IV .Q10H [facility] Last Admin: 11/22/19 16:37 Dose: 10 mg/hr, 10 mls/hr Documented by: Dobutamine HCl/Dextrose 500 mg (/ IV Solution) 250 mls @ 8.685 mls/hr IV .Q24H [facility] Last Admin: 11/22/19 10:49 Dose: 2.5 mcg/kg/min, 8.685 mls/hr Documented by: Ceftriaxone Sodium 1 gm/ (Sodium Chloride) 50 mls @ 100 mls/hr IVPB Q24HR [facility] Last Admin: 11/22/19 16:35 Dose: 100 mls/hr Documented by: Insulin Detemir (Levemir) 40 unit SQ [facility] Last Admin: 11/22/19 21:24 Dose: 40 unit Documented by: [facility]ulin [facility] ([facility]) [facility] [place] Last Admin: 11/22/19 10:39 Dose: 10 unit Documented by: Lamotrigine (Lamictal) 100 mg PO [facility] Last Admin: 11/22/19 21:24 Dose: 100 mg Documented by: Midodrine (Proamatine) 10 mg PO AC-TID [facility] Last Admin: 11/22/19 16:34 Dose: 10 mg Documented by: Venlafaxine HCl (Effexor) 75 mg PO BID [facility] Last Admin: 11/22/19 21:23 Dose: 75 mg Documented by: On examination: VITAL SIGNS: Afebrile, heart rate 106, 20, 103/76, 99% on 4 L GENERAL APPEARANCE: Propped up in a recliner, tired, short of breath HEENT: Normal external appearance of nose and ear. Oral cavity normal EYES: Pupils equal. Conjunctiva normal. NECK: JVD raised. Mass not palpable. RESPIRATORY: Respiratory effort increased. Decreased breath sounds. Basilar crackles CARDIOVASCULAR: Heart sounds irregular, significant edema present. ABDOMEN: Soft. Liver and spleen not palpable. No tenderness. No mass palpable. Bansal catheter with some hematuria PSYCHIATRY: Alert and oriented x3. Mood and affect normal. INVESTIGATIONS, reviewed in the clinical context: Pressure 4.9 bun 79 crit is 2.70 Previous testing: White count 8.2 hemoglobin 10.6 potassium 5.2 bun 52 creatinine 2.0 troponin I 0.0-3 EKG-possible A. fib Chest x-ray film personally reviewed by me-pulmonary edema cardiomegaly BUN/creatinine on October 07 Assessment: Acute on chronic congestive heart failure exacerbation from systolic dysfunction, EF not known, slow to respond. Ischemic cardiomyopathy Persistent atrial fibrillation on anticoagulation with Eliquis, rate uncontrolled Acute kidney injury secondary to cardiorenal syndrome, prerenal-worsening -chronic kidney disease stage III. Possible cardiorenal. Mild hyperkalemia secondary to acute kidney injury Lactic acidosis-type II History of nephrectomy due to renal cancer and bladder cancer history Diabetes type 2. Insulin-dependent and also on metformin and glipizide. Hyperlipidemia Coronary artery disease with history of multiple stents placement Bipolar disorder and depression GERD Obesity with BMI 34.9 Plan: Told the nurse to flush the Bansal catheter. Continue with Lasix drip. Other medications to continue. Strict I's and O's. Follow labs
[2019-11-23] MEDS: FUROSEMIDE 100 MG in SODIUM CHLORIDE 0.9% 90 ML IV SCH ×2 (03:11→14:19)
[2019-11-23] MEDS: DOBUTamine DRIP 500 MG in DEXTROSE/WATER 1 250ML.BAG IV SCH (04:14)
[2019-11-23 06:33] LABS: Calcium 7.9 mg/dL (8.4-10.2)
[2019-11-23 06:35] LABS: Glucose,Whole Blood 140 mg/dL (75-99)
[2019-11-23] MEDS: CARVEDILOL 12.5 MG TAB PO SCH ×2 (06:54→17:20)
[2019-11-23] MEDS: MIDODRINE 5 MG TAB PO SCH ×3 (06:54→17:21)
--- NOTE | 2019-11-23 08:54 | XR ---
EXAMINATION TYPE: XR chest 1V portable DATE OF EXAM: 11/23/2019 COMPARISON: 11/22/2019 INDICATION: Congestive heart failure TECHNIQUE: Single frontal view of the chest is obtained. FINDINGS: The heart size is moderately prominent. The pulmonary vasculature is upper limits of normal. There is diffuse increased lung markings greater in the lingular region. Findings are worsening over the interval. Pulmonary edema and infection could be considered. Pacemaker overlies left chest. IMPRESSION: 1. Cardiomegaly with mild prominence of pulmonary vascular markings with diffuse increasing lung fiel d markings can be compatible with congestive heart failure in the proper clinical setting.
[2019-11-23] MEDS: CYANOCOBALAMIN 500 MCG TAB PO SCH (09:37)
[2019-11-23] MEDS: INSULIN DETEMIR (LEVEMIR) 100 UNIT/ML SYR SQ SCH ×2 (09:37→20:45)
[2019-11-23] MEDS: guaiFENesin 600 MG TABLET.ER PO SCH ×2 (09:37→20:45)
[2019-11-23] MEDS: APIXABAN 2.5 MG TABLET PO SCH ×2 (09:37→20:45)
[2019-11-23] MEDS: ASPIRIN 81 MG PO SCH (09:37)
[2019-11-23] MEDS: CHOLECALCIFEROL 1,000 UNIT TAB PO SCH (09:37)
[2019-11-23] MEDS: AMIODARONE 200 MG TAB PO SCH ×3 (09:38→20:45)
[2019-11-23] MEDS: VENLAFAXINE HCL 75 MG TAB PO SCH ×2 (09:38→20:46)
--- NOTE | 2019-11-23 10:32 | P.PN ---
Subjective Progress Note Date: 11/23/19 This is a pleasant 79-year-old gentleman who follows regularly with Dr. Vargas in the office. He has a known history of coronary artery disease with prior bypass surgery, persistent atrial fibrillation, ischemic cardiomyopathy with prior AICD implant, this was performed in September 2018, h istory of diabetes, hypertension, hyperlipidemia. Patient also has history of kidney and bladder cancer with prior chemo and radiation. Presents to the hospital with at least one week duration of progressively worsening shortness of breath. He states that he also noticed a significant increase in his bilateral lower extremity edema. The patient denies any fever or chills at home. Chest x-ray on presentation here showed congestive cardiac failure. EKG showed atrial fibrillation with a rapid ventricular response. Blood pressure 106/70 with a heart rate of 120, afebrile, 98% on room air. White blood cell count is normal, hemoglobin 9.9, platelet count 236. Sodium 139, potassium 4.6, chloride 106, CO2 20, BUN 54, creatinine 1.8. Plasma lactic acid 2.3 on admission, 1.4 this morning, BNP level 2710. Troponin 0.02, 0.03, 0.03. Patient was initiated on IV Lasix in the emergency room. He has been overall diuresing quite well and his weight is down today. Patient continues to be quite short of breath, continues to have lower extremity edema. The patient is currently on Eliquis 5 mg one tablet by mouth twice a day, he is 79 years of age and his creatinine on admission was 2, we will monitor that creatinine closely, if it remains in the 2 range we will consider decreasing the Eliquis at 2-1/2 mg one tablet by mouth twice a day. We will continue the patient on IV Lasix. We will increase the dose of Coreg, patient is not currently on an TERRANCE inhibitor or an angiotensin scarlet because of the creatinine. 11/21/2019 Patient was seen and examined this morning, he continues to feel significantly short of breath, states he does not notice much improvement from his admission here. Labs are pending. Blood pressure 95/50, heart rate 108. 11/22/2019 Patient seen and examined this morning, states that he feels more short of breath today than he did on arrival here. His urine output is minimal. Continues to be hypotensive. Sodium 135, potassium 4.9, BUN 79, creatinine 2.7. We will start the patient on dobutamine drip at 2.5 g, after 10 minutes we'll increase to 5 mics. Obtain a repeat stat chest x-ray. This was discussed by Dr. Juan Major with nephrology this morning as well. 11/23/2019 Patient seen and examined this morning, sitting up in the chair at bedside. He states he does not feel a lot different than yesterday, maybe mildly better. This is the first day the patient has acknowledged to feeling some mild improvement in his breathing. He diuresed much better through the night last night after being initiated on the dobutamine. Blood pressure 92/40 with a heart rate in the 70s. Laboratory data from today, sodium 139, potassium 4.0, BUN 78, creatinine 2.4. Objective - Vital Signs Vital signs: Vital Signs Temp 97.6 F 11/23/19 08:00 Pulse 70 11/23/19 08:00 Resp 20 11/23/19 08:00 BP 92/43 11/23/19 08:00 Pulse Ox 96 11/23/19 08:00 Intake & Output 11/22/19 11/23/19 11/23/19 18:59 06:59 18:59 Intake Total 336 251.264 180 Output Total 1225 1500 Balance -889 -1248.736 180 Weight 110.3 kg Intake: Intake, IV Titration 100 251.264 Amount DOBUTamine DRIP 500 mg In 151.264 Dextrose/Water 1 250ml. bag @ 2.5 MCG/KG/MIN 8. 685 mls/hr IV .Q24H [facility] Rx#:[id number] Furosemide 100 mg In 100 100 Sodium Chloride 0.9% 90 ml @ 10 MG/HR 10 mls/hr IV .Q10H [facility] Rx#: [id number] Oral 236 180 Output: Urine 1225 1500 Other: Voiding Method Indwelling Catheter Indwelling Catheter Indwelling Catheter # Bowel Movements 2 - Exam PHYSICAL EXAMINATION: GENERAL: 79-year-old gentleman in no acute distress at the time of my examination HEENT: Head is atraumatic, normocephalic. Pupils equal, round. Sclera anicteric. Conjunctiva are clear. Mucous membranes of the mouth are moist. Neck is supple. There is elevated jugular venous pressure. No carotid bruit is heard. HEART EXAMINATION: Heart S1-S2 irregularly irregular a systolic murmur is heard CHEST EXAMINATION: Lungs are diminished to the bases bilaterally ABDOMEN: Soft, obese, nontender. Bowel sounds are heard. No organomegaly noted. EXTREMITIES: 2+ peripheral pulses with 2+ evidence of peripheral edema and no calf tenderness noted. NEUROLOGIC patient is awake, alert and oriented 3 . - Labs CBC & Chem 7: 11/20/19 06:24 11/23/19 05:42 Labs: Abnormal Lab Results - Last 24 Hours (Table) 11/22/19 11/22/19 11/22/19 Range/Units 04:34 11:45 16:46 BUN (9-20) mg/dL Creatinine (0.66-1.25) mg/dL Glucose (74-99) mg/dL POC Glucose (mg/dL) 167 H 165 H (75-99) mg/dL Calcium (8.4-10.2) mg/dL Procalcitonin 0.29 H (0.02-0.09) ng/mL 11/22/19 11/23/19 11/23/19 Range/Units 20:46 05:42 06:34 BUN 78 H (9-20) mg/dL Creatinine 2.48 H (0.66-1.25) mg/dL Glucose 120 H (74-99) mg/dL POC Glucose (mg/dL) 186 H 140 H (75-99) mg/dL Calcium 7.9 L (8.4-10.2) mg/dL Procalcitonin (0.02-0.09) ng/mL Microbiology - Last 24 Hours (Table) 11/22/19 23:15 Urine Culture - Preliminary Urine,Catheterized Assessment and Plan Plan: Assessment and plan #1 systolic congestive heart failure acute on chronic #2 coronary artery disease with prior bypass surgery #3 chronic persistent atrial fibrillation #4 hypertension #5 diabetes #6 hyperlipidemia #7 ischemic cardiomyopathy with prior AICD #8 acute on chronic renal insufficiency Plan From cardiology's perspective, we will continue with the Lasix drip, continue dobutamine gtt. continue to closely monitor intake and output along with daily weights and daily lytes BUN and creatinine. DNP note has been reviewed, I agree with a documented findings and plan of care. Patient was seen and examined.
[2019-11-23 12:15] LABS: Glucose,Whole Blood 136 mg/dL (75-99)
--- NOTE | 2019-11-23 13:43 | P.PN ---
Subjective Progress Note Date: 11/23/19 Principal diagnosis: Exertional dyspnea, anasarca This is an 79-year-old male patient of Dr. Cavanaugh, with known history of severe ischemic cardiomyopathy, and ejection fraction of less than 20%, status post AICD placement, hypertension, diabetes mellitus, hyperlipidemia, persistent atrial fibrillation, coronary artery disease status post bypass grafting, ex- smoker, chronic congestive heart failure with systolic dysfunction, history of kidney and bladder cancer status post chemo and radiation, who presented to the emergency department on 11/19/2019 with complaints of worsening exertional dyspnea, and increased swelling in his lower extremities. He denied any chest pain, palpitations, no fever or chills, no nausea vomiting, no diaphoresis, no c ough or phlegm production. Admission chest x-ray showed creased vascular congestion, and pulmonary edema and a small left pleural effusion. Admission blood work was negative for any leukocytosis, white blood cell count was 8.2, hemoglobin is 10.6, mild lymphopenia, INR is 1.3, potassium is 5.2, the rest of the electrolytes were within normal limits, BUN is 52 creatinine is 2.0, patient does have history of chronic kidney disease stage III, this showed signs of infection although patient denies any symptoms, troponins were 0.031, 0.026, 0.031, proBNP was 2710. We were asked to see the patient in consultation. Patient has been started on infusion of Lasix, early infusing at a rate of 10 mg per hour, and dobutamine drip infusing at 5 mics per kilo per minute. A is on oral Eliquis for history of chronic atrial fibrillation he remains in A. fib with a controlled rate of 93 bpm. He is sitting up in the recliner, in no acute distress, on 4 L of oxygen with a pulse ox of 95-98%, he is been afebrile, he has not diuresed significantly despite the Lasix infusion, and today's blood work shows worsening of his renal profile would be on up to 79 and creatinine is up to 2.7. Nephrology is following. 11/23/2019, the patient was seen and examined at his bedside on the cardiac stepdown unit with Dr. Rivers. He reports he is slightly better today, denies any complaints of pain or shortness of breath just sitting. He is sitting up to the bedside chair and is in no acute distress. Lasix drip at 10 mg per hour and dopamine drip at 2.5 mcg/kg/m continue infusing. He remained hemodynamically stable and currently has oxygen saturations are 96% on 4 L nasal cannula. Repeat chest x-ray was completed this morning which demonstrated cardiomegaly with mild prominence of pulmonary vasculature marking with diffuse increasing lung field markings compatible with congestive heart failure. He has been afebrile the last 24 hours. Lab results today show a BUN 78, creatinine 2.48 and a BNP level 1740. A urine culture was sent yesterday with results pending. Objective - Vital Signs Vital signs: Vital Signs Temp 96.8 F L 11/23/19 11:11 Pulse 70 11/23/19 11:11 Resp 20 11/23/19 11:11 BP 99/54 11/23/19 11:11 Pulse Ox 98 11/23/19 11:11 Intake & Output 11/22/19 11/23/19 11/23/19 18:59 06:59 18:59 Intake Total 336 251.264 180 Output Total 1225 1500 Balance -889 -1248.736 180 Weight 110.3 kg Intake: Intake, IV Titration 100 251.264 Amount DOBUTamine DRIP 500 mg In 151.264 Dextrose/Water 1 250ml. bag @ 2.5 MCG/KG/MIN 8. 685 mls/hr IV .Q24H [facility] Rx#:[id number] Furosemide 100 mg In 100 100 Sodium Chloride 0.9% 90 ml @ 10 MG/HR 10 mls/hr IV .Q10H [facility] Rx#: [id number] Oral 236 180 Output: Urine 1225 1500 Other: Voiding Method Indwelling Catheter Indwelling Catheter Indwelling Catheter # Bowel Movements 2 - Constitutional Constitutional Comment(s): An 79-year-old gentleman who is awake, alert and pleasant. Oxygen saturations are 96% on 4 L nasal cannula. General appearance: Present: cooperative - EENT Eyes: Present: PERRLA, normal appearance. Absent: scleral icterus - Neck Details: Neck is supple. No JVD. Neck: Absent: lymphadenopathy, stridor - Respiratory Details: Lung sounds with few scattered crackles throughout. No wheezes or rhonchi. Respirations are symmetrical and nonlabored. - Cardiovascular Details: Irregular rhythm and controlled rate. S1 and S2 present, negative for S3, gallop or murmurs. Remote telemetry showing atrial fibrillation/atrial flutter heart rate 73 bpm. - Gastrointestinal Gastrointestinal Comment(s): Abdomen is soft, nontender and nondistended. Active bowel sounds present in all 4 abdominal quadrants. No guarding or rigidity. - Integumentary Integumentary Comment(s): Skin is warm and dry. No clubbing or cyanosis is present. +2 edema to his bilateral lower extremities. - Neurologic Neurologic: Present: CNII-XII intact - Musculoskeletal Musculoskeletal: Present: gait normal, generalized weakness, strength equal bilaterally - Psychiatric Psychiatric: Present: A&O x's 3, appropriate affect, intact judgment & insight - Allied health notes Allied health notes reviewed: nursing - Labs CBC & Chem 7: 11/20/19 06:24 11/23/19 05:42 Labs: Abnormal Lab Results - Last 24 Hours (Table) 11/22/19 11/22/19 11/22/19 Range/Units 04:34 16:46 20:46 BUN (9-20) mg/dL Creatinine (0.66-1.25) mg/dL Glucose (74-99) mg/dL POC Glucose (mg/dL) 165 H 186 H (75-99) mg/dL Calcium (8.4-10.2) mg/dL Procalcitonin 0.29 H (0.02-0.09) ng/mL 11/23/19 11/23/19 11/23/19 Range/Units 05:42 06:34 11:44 BUN 78 H (9-20) mg/dL Creatinine 2.48 H (0.66-1.25) mg/dL Glucose 120 H (74-99) mg/dL POC Glucose (mg/dL) 140 H 136 H (75-99) mg/dL Calcium 7.9 L (8.4-10.2) mg/dL Procalcitonin (0.02-0.09) ng/mL Microbiology - Last 24 Hours (Table) 11/22/19 23:15 Urine Culture - Preliminary Urine,Catheterized - Imaging and Cardiology Chest x-ray: report reviewed, image reviewed Assessment and Plan Assessment: 1. Acute exacerbation of chronic congestive heart failure with systolic dysfunction 2. Acute kidney injury likely related to cardiorenal syndrome, diuretic therapy, nephrology is following 3. Acute urinary tract infection, although patient is asymptomatic, we'll start on empiric Rocephin, urine culture results pending 4. Ischemic cardiomyopathy, with EF of less than 20%, status post AICD implantation 5. Diabetes mellitus 6. History of chronic persistent atrial fibrillation on oral anticoagulation 7. History of chronic kidney disease stage III at baseline, history of right hydronephrosis and patient follows with urology 8. Coronary artery disease status post bypass grafting 9. Hypertension 10. Hyperlipidemia 11. History of bladder cancer Plan: 1. The patient was seen and examined at his bedside with Dr. Rivers. 2. Repeat chest x-ray in a.m. 3. Wean oxygen as tolerated to keep sats greater than or equal to 92%. 4. Atrial fibrillation and CHF management per cardiology recommendations. 5. Continue Rocephin for possible underlying urinary tract infection. 6. Continue to monitor daily weights, the patient is down 5 kg today from yesterday. 7. Lasix drip and Dobutrex drip management per cardiology. 8. We will continue to follow patient and more recommendations to follow based on patient's clinical course. The patient was seen and examined with Dr. Rivers, the plan and assessment were discussed. Time with Patient: Less than 30
[2019-11-23] MEDS: SODIUM CHLORIDE 0.9% 1,000 ML IV SCH (15:11)
--- NOTE | 2019-11-23 16:13 | PN ---
PROGRESS NOTE Patient is seen for followup for acute kidney injury, mainly cardiorenal and associated with hypotension and hypoperfusion. Renal function is improved. The patient is currently maintained on dobutamine and Lasix drip at 10 mg an hour. His urine output seems to have picked up. He currently has an indwelling Bansal catheter; 24-hour urine output 2.7 liters. This morning patient is not significantly short of breath. He is comfortable. Blood pressure was 92/43, heart rate 70 per minute, patient is afebrile. EXAMINATION OF THE HEART: S1 and S2. EXAMINATION OF THE LUNGS: Decreased breath sounds at the bases. ABDOMEN: Soft, nontender. Examination of the extremities shows edema 2+ bilaterally. Chronic skin changes noted. [employer] exam grossly intact. LABS: Sodium 139, potassium 4.0, chloride 106, BUN 78, creatinine 2.48. ASSESSMENT: 1. Acute kidney injury associated with hypotension, hypoperfusion, as well as cardiorenal syndrome, currently improving. Continue with dobutamine and Lasix drip. 2. Hypotension, mainly associated with cardiomyopathy, maintained on midodrine, somewhat improved. 3. Volume overload. Continue to diurese patient. 4. Chronic kidney disease stage 3 with previous creatinine as low as 1.2 mg/dL in September 2018. 5. Severe cardiomyopathy, ejection fraction of 20%. 6. Atrial fibrillation with controlled ventricular response, maintained on Eliquis. 7. Hematuria, possibly related to traumatic Bansal insertion with anticoagulation. 8. History of bladder cancer with current ultrasound showing atrophic right kidney with solid-appearing mass in the lower pole of the right kidney. This will need to be worked up and followed up as outpatient. The patient normally sees Urology as outpatient. PLAN: Continue dobutamine and Lasix drip. Check labs in a.m. Continue to monitor urine output closely. Avoid hypotension and avoid nephrotoxic meds. MMODL / IJN: [id number] /
[2019-11-23 17:00] LABS: Glucose,Whole Blood 130 mg/dL (75-99)
--- NOTE | 2019-11-23 19:30 | P.PN ---
Progress Note - Text Progress Note Date: 11/23/19 Chief Complaint: Shortness of breath Patient is a 79-year-old patient of Dr. Cavanaugh. history of chronic atrial fibrillation on anticoagulation with Eliquis, coronary artery disease status post bypass graft, cardiomyopathy status post AICD placement, history of nephrec araceli and unilateral kidney, CK D stage III, hypertension, hyperlipidemia, GERD, diabetes type 2 and history of bipolar/depression came to ER with complaints of worsening shortness of breath and exertional dyspnea and bilateral lower extremity increases swelling for the past 2 weeks. Patient does have minimal cough without any sputum production. No sputum production. No complaints of fever or chills. Denied any sick contacts at home. No recent travel. Admitted with CHF exacerbation, atrial fibrillation with a rapid ventricular rate. Started on IV Lasix and IV amiodarone. Today-. Initiate better. Over 2 L in negative fluid balance. Started on dobutamine yesterday. Slightly short of breath. Tired. Decreased appetite. Review of systems: Was done for constitutional, cardiovascular, GI, pulmonary. relevant finding as above Active Medications Amiodarone HCl (Cordarone) 200 mg PO TID [facility] Last Admin: 11/23/19 15:00 Dose: 200 mg Documented by: Apixaban (Eliquis) 2.5 mg PO BID [facility] Last Admin: 11/23/19 09:37 Dose: 2.5 mg Documented by: Aspirin (Aspirin) 81 mg PO DAILY [facility] Last Admin: 11/23/19 09:37 Dose: 81 mg Documented by: Atorvastatin Calcium (Lipitor) 80 mg PO HS [facility] Last Admin: 11/22/19 21:24 Dose: 80 mg Documented by: Carvedilol (Coreg) 25 mg PO AC-BID [facility] Last Admin: 11/23/19 17:20 Dose: 25 mg Documented by: Cholecalciferol (Vitamin D3 (25 Mcg = 1000 Iu)) 2,000 unit PO DAILY [facility] Last Admin: 11/23/19 09:37 Dose: 2,000 unit Documented by: Cyanocobalamin (Vitamin B-12) 1,000 mcg PO DAILY [facility] Last Admin: 11/23/19 09:37 Dose: 1,000 mcg Documented by: Guaifenesin (Mucinex) 1,200 mg PO Q12HR [facility] Last Admin: 11/23/19 09:37 Dose: 1,200 mg Documented by: Sodium Chloride (Saline 0.9%) 1,000 mls @ 20 mls/hr IV .Q24H [facility] Last Admin: 11/23/19 15:11 Dose: 20 mls/hr Documented by: Furosemide 100 mg/ Sodium (Chloride) 100 mls @ 10 mls/hr IV .Q10H [facility] Last Admin: 11/23/19 14:19 Dose: 10 mg/hr, 10 mls/hr Documented by: Dobutamine HCl/Dextrose 500 mg (/ IV Solution) 250 mls @ 8.685 mls/hr IV .Q24H [facility] Last Admin: 11/23/19 04:14 Dose: 2.5 mcg/kg/min, 8.685 mls/hr Documented by: Ceftriaxone Sodium 1 gm/ (Sodium Chloride) 50 mls @ 100 mls/hr IVPB Q24HR [facility] Last Admin: 11/23/19 09:38 Dose: 100 mls/hr Documented by: Insulin Detemir (Levemir) 40 unit SQ [facility] Last Admin: 11/22/19 21:24 Dose: 40 unit Documented by: Insulin Detemir (Levemir) [facility] Last Admin: 11/23/19 09:37 Dose: 10 unit Documented by: Lamotrigine (Lamictal) 100 mg PO [facility] Last Admin: 11/22/19 21:24 Dose: 100 mg Documented by: Midodrine (Proamatine) 10 mg PO AC-TID [facility] Last Admin: 11/23/19 17:21 Dose: 10 mg Documented by: Venlafaxine HCl (Effexor) 75 mg PO BID [facility] Last Admin: 11/23/19 09:38 Dose: 75 mg Documented by: On examination: VITAL SIGNS: 97.4, 68, 18, 98/54, 99% on 4 L GENERAL APPEARANCE: Sitting up, tired, short of breath HEENT: Normal external appearance of nose and ear. Oral cavity normal EYES: Pupils equal. Conjunctiva normal. NECK: JVD raised. Mass not palpable. RESPIRATORY: Respiratory effort increased. Decreased breath sounds. Basilar crackles CARDIOVASCULAR: Heart sounds irregular, significant edema present. ABDOMEN: Soft. Liver and spleen not palpable. No tenderness. No mass palpable. Bansal catheter with some hematuria PSYCHIATRY: Alert and oriented x3. Mood and affect normal. INVESTIGATIONS, reviewed in the clinical context: Percussion for bun 78 creatinine 2.48 Previous testing: White count 8.2 hemoglobin 10.6 potassium 5.2 bun 52 creatinine 2.0 troponin I 0.0-3 EKG-possible A. fib Chest x-ray film personally reviewed by me-pulmonary edema cardiomegaly BUN/creatinine on October 07 Assessment: Acute on chronic congestive heart failure exacerbation from systolic dysfunction, EF not known, slow to respond. Ischemic cardiomyopathy Persistent atrial fibrillation on anticoagulation with Eliquis, rate uncontrolled Acute kidney injury secondary to cardiorenal syndrome, started to turn around -chronic kidney disease stage III. Mild hyperkalemia secondary to acute kidney injury Lactic acidosis-type II History of nephrectomy due to renal cancer and bladder cancer history Diabetes type 2. Insulin-dependent and also on metformin and glipizide. Hyperlipidemia Coronary artery disease with history of multiple stents placement Bipolar disorder and depression GERD Obesity with BMI 34.9 Plan: Patient started responding to IV Lasix drip. Continue current medication treatment plan. Follow electrolytes. Continue with dobutamine IV.
[2019-11-23] MEDS: ATORVASTATIN 80 MG TAB PO SCH (20:45)
[2019-11-23] MEDS: lamoTRIgine 100 MG TAB PO SCH (20:45)
[2019-11-23 21:05] LABS: Glucose,Whole Blood 167 mg/dL (75-99)
[2019-11-24] MEDS: FUROSEMIDE 100 MG in SODIUM CHLORIDE 0.9% 90 ML IV SCH ×2 (04:48→11:28)
[2019-11-24] MEDS: CARVEDILOL 12.5 MG TAB PO SCH ×2 (06:25→16:43)
[2019-11-24] MEDS: MIDODRINE 5 MG TAB PO SCH ×3 (06:26→16:43)
[2019-11-24 06:32] LABS: Glucose,Whole Blood 53 mg/dL (75-99)
[2019-11-24 06:32] LABS: Glucose,Whole Blood 68 mg/dL (75-99)
[2019-11-24 06:53] LABS: Glucose,Whole Blood 73 mg/dL (75-99)
--- NOTE | 2019-11-24 07:43 | XR ---
EXAMINATION TYPE: XR chest 1V portable DATE OF EXAM: 11/24/2019 CLINICAL HISTORY: Difficulty breathing and CHF progress study. TECHNIQUE: Single AP portable upright view of the chest is obtained. COMPARISON: Chest x-ray from one day earlier and older studies. FINDINGS: Persistent cardiomegaly with single lead pacemaker/AICD. Atherosclerotic thoracic aorta re demonstrated. Overlying sternal wires and mediastinal clips again seen. Elevated left hemidiaphragm w ith chronic parenchymal changes and left basilar opacity. Osseous structures are intact. IMPRESSION: Persistent elevated left hemidiaphragm and cardiomegaly with chronic parenchymal changes and perhaps patchy left basilar atelectasis and/or infiltrate. No significant change from one day ear lier.
[2019-11-24] MEDS: APIXABAN 2.5 MG TABLET PO SCH ×2 (08:33→21:00)
[2019-11-24] MEDS: AMIODARONE 200 MG TAB PO SCH ×3 (08:33→21:00)
[2019-11-24] MEDS: INSULIN DETEMIR (LEVEMIR) 100 UNIT/ML SYR SQ SCH ×2 (08:33→21:02)
[2019-11-24] MEDS: ASPIRIN 81 MG PO SCH (08:33)
[2019-11-24] MEDS: CHOLECALCIFEROL 1,000 UNIT TAB PO SCH (08:33)
[2019-11-24] MEDS: guaiFENesin 600 MG TABLET.ER PO SCH ×2 (08:33→21:00)
[2019-11-24] MEDS: CYANOCOBALAMIN 500 MCG TAB PO SCH (08:33)
[2019-11-24] MEDS: VENLAFAXINE HCL 75 MG TAB PO SCH ×2 (08:34→21:02)
[2019-11-24 08:57] LABS: Calcium 8.4 mg/dL (8.4-10.2); Potassium 3.9 mmol/L (3.5-5.1)
--- NOTE | 2019-11-24 09:02 | PN ---
PROGRESS NOTE This gentleman has ischemic cardiomyopathy, ejection fraction less than 30%, previous bypass surgery, ICD. He came in with what seems to be an exacerbation of congestive heart failure, mostly systolic with some volume overload type picture. On a combination of dobutamine drip and Lasix drip, he seems to be doing better. Labs are pending today. Urine output has been good. Weight is down. He feels a bit weak, but overall his breathing has improved. JVD is 1 cm. No carotid bruit. S1, S2 heard normally, irregular rate and rhythm noted with underlying atrial fib, rate is controlled. Lungs reveal improved air entry. Abdomen is soft. Lower extremity edema has shown modest improvement. Blood pressure is running about 95 to 105 systolic. Urine output has improved remarkably. We will continue current therapy at this time. MMODL / IJN: [id number] /
--- NOTE | 2019-11-24 10:59 | P.PN ---
Subjective Progress Note Date: 11/24/19 Principal diagnosis: Exertional dyspnea, anasarca This is an 79-year-old male patient of Dr. Cavanaugh, with known history of severe ischemic cardiomyopathy, and ejection fraction of less than 20%, status post AICD placement, hypertension, diabetes mellitus, hyperlipidemia, persistent atrial fibrillation, coronary artery disease status post bypass grafting, ex- smoker, chronic congestive heart failure with systolic dysfunction, history of kidney and bladder cancer status post chemo and radiation, who presented to the emergency department on 11/19/2019 with complaints of worsening exertional dyspnea, and increased swelling in his lower extremities. He denied any chest pain, palpitations, no fever or chills, no nausea vomiting, no diaphoresis, no cough or phlegm production. Admission chest x-ray showed creased vascular congestion, and pulmonary edema and a small left pleural effusion. Admission blood work was negative for any leukocytosis, white blood cell count was 8.2, hemoglobin is 10.6, mild lymphopenia, INR is 1.3, potassium is 5.2, the rest of the electrolytes were within normal limits, BUN is 52 creatinine is 2.0, patient does have history of chronic kidney disease stage III, this showed signs of infection although patient denies any symptoms, troponins were 0.031, 0.026, 0.031, proBNP was 2710. We were asked to see the patient in consultation. Patient has been started on infusion of Lasix, early infusing at a rate of 10 mg per hour, and dobutamine drip infusing at 5 mics per kilo per minute. A is on oral Eliquis for history of chronic atrial fibrillation he remains in A. fib with a controlled rate of 93 bpm. He is sitting up in the recliner, in no acute distress, on 4 L of oxygen with a pulse ox of 95-98%, he is been afebrile, he has not diuresed significantly despite the Lasix infusion, and today's blood work shows worsening of his renal profile would be on up to 79 and creatinine is up to 2.7. Nephrology is following. 11/23/2019, the patient was seen and examined at his bedside on the cardiac stepdown unit with Dr. Rivers. He reports he is slightly better today, denies any complaints of pain or shortness of breath just sitting. He is sitting up to the bedside chair and is in no acute distress. Lasix drip at 10 mg per hour and dopamine drip at 2.5 mcg/kg/m continue infusing. He remained hemodynamically stable and currently has oxygen saturations are 96% on 4 L nasal cannula. Repeat chest x-ray was completed this morning which demonstrated cardiomegaly with mild prominence of pulmonary vasculature marking with diffuse increasing lung field markings compatible with congestive heart failure. He has been afebrile the last 24 hours. Lab results today show a BUN 78, creatinine 2.48 and a BNP level 1740. A urine culture was sent yesterday with results pending. On 11/24/2019 the patient was seen and examined with Dr. Rivers. Denies pain, shortness of breath. Sitting up in bed and appears comfortable. Remains afebrile. Hematologically stable. Currently on 4 L nasal cannula with oxygen saturation 97%. Continues on dobutamine at 2.5 mcg and Lasix at 10 mg an hour. Chest x-ray seems to be improving a bit, still has atelectasis present. BUN 84, creatinine 2.37. Urine culture negative. Fluid balance -4 L for the last 48 hours. Objective - Vital Signs Vital signs: Vital Signs Temp 97.4 F L 11/24/19 08:00 Pulse 65 11/24/19 08:00 Resp 18 11/24/19 08:00 BP 96/52 11/24/19 08:00 Pulse Ox 97 11/24/19 08:00 Intake & Output 11/23/19 11/24/19 11/24/19 18:59 06:59 18:59 Intake Total 460 100 240 Output Total 2526 1 Balance 460 -2426 239 Weight 112.6 kg Intake: Intake, IV Titration 100 100 Amount Furosemide 100 mg In 100 100 Sodium Chloride 0.9% 90 ml @ 10 MG/HR 10 mls/hr IV .Q10H [facility] Rx#: [id number] Oral 360 240 Output: Urine 2525 Stool 1 1 Other: Voiding Method Indwelling Catheter Indwelling Catheter Indwelling Catheter # Voids 0 # Bowel Movements 0 - Constitutional Constitutional Comment(s): Sitting up in bed, appears comfortable General appearance: Present: cooperative, no acute distress, obese - Respiratory Details: Lungs sounds diminished with a few scattered crackles in the left base. Respirations even, nonlabored. Currently on 4 L nasal cannula with oxygen saturation 97%. - Cardiovascular Details: S1, S2 present. Irregular rate and rhythm, atrial fibrillation on telemetry. Palpable peripheral pulses bilaterally. Bilateral lower extremity 1-2+ edema present. No calf pain or tenderness noted. - Gastrointestinal Gastrointestinal Comment(s): Abdomen soft, nontender, nondistended. No organomegaly present. Active bowel sounds present has 4 quadrants. Tolerating diet. - Genitourinary Genitourinary Comment(s): Bansal present draining clear, yellow urine. - Integumentary Integumentary Comment(s): Skin is warm and dry with evidence of good perfusion - Neurologic Neurologic: Present: CNII-XII intact - Musculoskeletal Musculoskeletal: Present: generalized weakness, strength equal bilaterally - Psychiatric Psychiatric: Present: A&O x's 3, appropriate affect, intact judgment & insight - Allied health notes Allied health notes reviewed: nursing - Labs CBC & Chem 7: 11/20/19 06:24 11/24/19 07:26 Labs: Abnormal Lab Results - Last 24 Hours (Table) 11/23/19 11/23/19 11/23/19 Range/Units 11:44 16:52 20:45 BUN (9-20) mg/dL Creatinine (0.66-1.25) mg/dL POC Glucose (mg/dL) 136 H 130 H 167 H (75-99) mg/dL 11/24/19 11/24/19 11/24/19 Range/Units 06:09 06:27 06:50 BUN (9-20) mg/dL Creatinine (0.66-1.25) mg/dL POC Glucose (mg/dL) 53 L 68 L 73 L (75-99) mg/dL 11/24/19 Range/Units 07:26 BUN 84 H (9-20) mg/dL Creatinine 2.37 H (0.66-1.25) mg/dL POC Glucose (mg/dL) (75-99) mg/dL Microbiology - Last 24 Hours (Table) 11/22/19 23:15 Urine Culture - Final Urine,Catheterized - Imaging and Cardiology Chest x-ray: report reviewed, image reviewed Assessment and Plan Assessment: 1. Acute exacerbation of chronic congestive heart failure with systolic dysfunction 2. Acute kidney injury likely related to cardiorenal syndrome, diuretic therapy, nephrology is following 3. Acute urinary tract infection, placed on ceftriaxone, urine culture negative 4. Ischemic cardiomyopathy, with EF of less than 20%, status post AICD implantation 5. Diabetes mellitus 6. History of chronic persistent atrial fibrillation on oral anticoagulation 7. History of chronic kidney disease stage III at baseline, history of right hydronephrosis and patient follows with urology 8. Coronary artery disease status post bypass grafting 9. Hypertension 10. Hyperlipidemia 11. History of bladder cancer Plan: We'll decrease Lasix IV to 5 mg per hour. Continue dobutamine Repeat chest x-ray in a.m. Wean oxygen as tolerated to keep sats greater than or equal to 92%. Atrial fibrillation and CHF management per cardiology recommendations. Continue Rocephin Continue to monitor daily weights I, the cosigning physician, performed a history & physical examination of the patient. Lungs sounds revealed crackles in the left base. Maintaining good O2 saturations in the 90s on 4 L nasal cannula. I discussed the assessment and plan of care with my nurse practitioner, Chanel Diego. I attest to the above note as dictated by her. Time with Patient: Greater than 30
[2019-11-24] MEDS: DOBUTamine DRIP 500 MG in DEXTROSE/WATER 1 250ML.BAG IV SCH (11:29)
[2019-11-24 12:08] LABS: Glucose,Whole Blood 164 mg/dL (75-99)
[2019-11-24] MEDS ORDERED: ONDANSETRON 4 MG/2 ML VIAL IVP PRN (15:56)
--- NOTE | 2019-11-24 16:08 | PN ---
PROGRESS NOTE Patient is seen for followup for acute kidney injury, mainly cardiorenal, currently improving. Patient is maintained on Lasix drip and dobutamine drip. He has an indwelling Bansal catheter, 24 hour urine output of about 2.7 L. Weight has decreased. Shortness of breath has improved. PHYSICAL EXAMINATION: On examination today, blood pressure was 96/52, heart rate 81 per minute. Patient is afebrile. Examination of the heart S1, S2. Examination of the lungs, decreased breath sounds at bases. Abdomen is soft, nontender. Examination of the lower extremities shows edema 2+ bilaterally. ST[employer] CONSULTANT exam grossly intact. LABS: Show sodium 140, potassium 3.9, BUN 84, serum creatinine 2.37, calcium is 8.4. ASSESSMENT: 1. Acute kidney injury, cardiorenal, and associated with hypotension, hypoperfusion currently slowly improving. Lasix drip is maintained at 10 mg an hour, which I will continue. The patient is also on the dobutamine. His weight is slowly decreasing. 2. Volume overload, slowly improving. 3. Severe cardiomyopathy. 4. Hypotension, mainly secondary to severe cardiomyopathy, maintained on midodrine. 5. Mild hyperkalemia, now improved. 6. History of bladder cancer with ultrasound showing atrophic right kidney with solid appearing mass in the lower pole of the right kidney. Needs further followup as outpatient. Patient does follow with Urology. 7. Atrial fibrillation with controlled ventricular response. 8. Chronic kidney disease stage III, previous creatinine 1.2 in September of 2018. PLAN: Continue with the Lasix drip and dobutamine drip. Continue midodrine, repeat labs in a.m. Avoid any nephrotoxic medications and patient is advised regarding avoiding food containing large amounts of sodium. MMODL / IJN: [id number] /
[2019-11-24 16:58] LABS: Glucose,Whole Blood 106 mg/dL (75-99)
[2019-11-24] MEDS: SODIUM CHLORIDE 0.9% 1,000 ML IV SCH (17:10)
--- NOTE | 2019-11-24 19:38 | P.PN ---
Progress Note - Text Progress Note Date: 11/24/19 Chief Complaint: Shortness of breath Patient is a 79-year-old patient of Dr. Cavanaugh. history of chronic atrial fibrillation on anticoagulation with Eliquis, coronary artery disease status post bypass graft, cardiomyopathy status post AICD placement, history of nephrec araceli and unilateral kidney, CK D stage III, hypertension, hyperlipidemia, GERD, diabetes type 2 and history of bipolar/depression came to ER with complaints of worsening shortness of breath and exertional dyspnea and bilateral lower extremity increases swelling for the past 2 weeks. Patient does have minimal cough without any sputum production. No sputum production. No complaints of fever or chills. Denied any sick contacts at home. No recent travel. Admitted with CHF exacerbation, atrial fibrillation with a rapid ventricular rate. Started on IV Lasix and IV amiodarone. Today-. Remains on IV Lasix and dobutamine drip. Over 3.5 L in negative fluid balance. Not much of an appetite. Tired. Breathing a shade better. A. fib better controlled Review of systems: Was done for constitutional, cardiovascular, GI, pulmonary. relevant finding as above Active Medications Amiodarone HCl (Cordarone) 200 mg PO TID [facility] Last Admin: 11/24/19 16:43 Dose: 200 mg Documented by: Apixaban (Eliquis) 2.5 mg PO BID [facility] Last Admin: 11/24/19 08:33 Dose: 2.5 mg Documented by: Aspirin (Aspirin) 81 mg PO DAILY [facility] Last Admin: 11/24/19 08:33 Dose: 81 mg Documented by: Atorvastatin Calcium (Lipitor) 80 mg PO HS [facility] Last Admin: 11/23/19 20:45 Dose: 80 mg Documented by: Carvedilol (Coreg) 25 mg PO AC-BID [facility] Last Admin: 11/24/19 16:43 Dose: 25 mg Documented by: Cholecalciferol (Vitamin D3 (25 Mcg = 1000 Iu)) 2,000 unit PO DAILY [facility] Last Admin: 11/24/19 08:33 Dose: 2,000 unit Documented by: Cyanocobalamin (Vitamin B-12) 1,000 mcg PO DAILY [facility] Last Admin: 11/24/19 08:33 Dose: 1,000 mcg Documented by: Guaifenesin (Mucinex) 1,200 mg PO Q12HR [facility] Last Admin: 11/24/19 08:33 Dose: 1,200 mg Documented by: Sodium Chloride (Saline 0.9%) 1,000 mls @ 20 mls/hr IV .Q24H [facility] Last Admin: 11/24/19 17:10 Dose: Not Given Documented by: Furosemide 100 mg/ Sodium (Chloride) 100 mls @ 5 mls/hr IV .Q20H [facility] Last Admin: 11/24/19 11:28 Dose: 10 mg/hr, 10 mls/hr Documented by: Dobutamine HCl/Dextrose 500 mg (/ IV Solution) 250 mls @ 8.685 mls/hr IV .Q24H [facility] Last Admin: 11/24/19 11:29 Dose: 2.5 mcg/kg/min, 8.685 mls/hr Documented by: Ceftriaxone Sodium 1 gm/ (Sodium Chloride) 50 mls @ 100 mls/hr IVPB Q24HR [facility] Last Admin: 11/24/19 08:33 Dose: 100 mls/hr Documented by: Insulin Detemir (Levemir) 40 unit SQ [facility] Last Admin: 11/23/19 20:45 Dose: 40 unit Documented by: Insulin Detemir (Levemir) [facility] Last Admin: 11/24/19 08:33 Dose: 10 unit Documented by: Lamotrigine (Lamictal) 100 mg PO [facility] Last Admin: 11/23/19 20:45 Dose: 100 mg Documented by: Melatonin (Melatonin) 3 mg PO [facility] Midodrine (Proamatine) 10 mg PO AC-TID [facility] Last Admin: 11/24/19 16:43 Dose: 10 mg Documented by: Ondansetron HCl (Zofran) 4 mg IVP Q6HR PRN PRN Reason: Nausea And Vomiting Last Admin: 11/24/19 16:43 Dose: 4 mg Documented by: Venlafaxine HCl (Effexor) 75 mg PO BID [facility] Last Admin: 11/24/19 08:34 Dose: 75 mg Documented by: On examination: VITAL SIGNS: 96.4, 81, 20, 87/51, 95% on 4 L GENERAL APPEARANCE: Sitting up in a recliner, tired, less short of breath HEENT: Normal external appearance of nose and ear. Oral cavity normal EYES: Pupils equal. Conjunctiva normal. NECK: JVD raised. Mass not palpable. RESPIRATORY: Respiratory effort increased. Decreased breath sounds. Decreased crackles CARDIOVASCULAR: Heart sounds irregular, edema decreasing. ABDOMEN: Soft. Liver and spleen not palpable. No tenderness. No mass palpable. Bansal catheter with some hematuria PSYCHIATRY: Alert and oriented x3. Mood and affect normal. INVESTIGATIONS, reviewed in the clinical context: Potassium 3.9 creatinine 2.37 Previous testing: White count 8.2 hemoglobin 10.6 potassium 5.2 bun 52 creatinine 2.0 troponin I 0.0-3 EKG-possible A. fib Chest x-ray film personally reviewed by me-pulmonary edema cardiomegaly BUN/creatinine on October 07 Assessment: Acute on chronic congestive heart failure exacerbation from systolic dysfunction, EF less than 30% per cardiology, slow to respond. -Hypotension multifactorial Ischemic cardiomyopathy Persistent atrial fibrillation on anticoagulation with Eliquis, rate better controlled Acute kidney injury secondary to cardiorenal syndrome, started to turn around -chronic kidney disease stage III. Mild hyperkalemia secondary to acute kidney injury Lactic acidosis-type II History of nephrectomy due to renal cancer and bladder cancer history Diabetes type 2. Insulin-dependent and also on metformin and glipizide. Hyperlipidemia Coronary artery disease with history of multiple stents placement Bipolar disorder and depression GERD Obesity with BMI 34.9 Plan: Remains on IV Lasix and IV dobutamine drip. Breathing started to improve. Fol low electrolytes closely. Discussed with patient.
[2019-11-24 20:29] LABS: Glucose,Whole Blood 156 mg/dL (75-99)
[2019-11-24] MEDS: lamoTRIgine 100 MG TAB PO SCH (21:00)
[2019-11-24] MEDS: MELATONIN 3 MG TABLET PO SCH (21:00)
[2019-11-24] MEDS: ATORVASTATIN 80 MG TAB PO SCH (21:00)
[2019-11-25] MEDS: FUROSEMIDE 100 MG in SODIUM CHLORIDE 0.9% 90 ML IV SCH ×3 (03:13→23:30)
[2019-11-25 06:05] LABS: Glucose,Whole Blood 92 mg/dL (75-99)
[2019-11-25] MEDS: CARVEDILOL 12.5 MG TAB PO SCH ×2 (06:23→17:21)
[2019-11-25] MEDS: MIDODRINE 5 MG TAB PO SCH ×3 (06:23→17:20)
[2019-11-25 07:47] LABS: Calcium 8.5 mg/dL (8.4-10.2); Potassium 3.8 mmol/L (3.5-5.1)
--- NOTE | 2019-11-25 07:48 | XR ---
EXAMINATION TYPE: XR chest 1V portable DATE OF EXAM: 11/25/2019 HISTORY: heart failure. REFERENCE: Previous study dated 11/24/2019. FINDINGS: There has been a midline sternotomy. Bipolar pacemaker remains in place on the left. The heart is enlarged. There is improved aeration of the left lung. There is vascular congestion and mild edema. There are small bilateral effusions. IMPRESSION: 1. CONTINUING CHANGES OF HEART FAILURE. 2. IMPROVED AERATION, LEFT LUNG BASE. 3. SMALL, BILATERAL EFFUSIONS.
[2019-11-25] MEDS: CHOLECALCIFEROL 1,000 UNIT TAB PO SCH (07:55)
[2019-11-25] MEDS: guaiFENesin 600 MG TABLET.ER PO SCH ×2 (07:55→22:15)
[2019-11-25] MEDS: ASPIRIN 81 MG PO SCH (07:55)
[2019-11-25] MEDS: APIXABAN 2.5 MG TABLET PO SCH ×2 (07:55→22:15)
[2019-11-25] MEDS: AMIODARONE 200 MG TAB PO SCH ×3 (07:56→22:15)
[2019-11-25] MEDS: CYANOCOBALAMIN 500 MCG TAB PO SCH (07:56)
[2019-11-25] MEDS: INSULIN DETEMIR (LEVEMIR) 100 UNIT/ML SYR SQ SCH ×2 (07:56→22:14)
[2019-11-25] MEDS: VENLAFAXINE HCL 75 MG TAB PO SCH ×2 (08:28→22:17)
--- NOTE | 2019-11-25 09:51 | P.PN ---
Subjective This is a pleasant 79-year-old male past medical history significant for ischemic cardiomyopathy status post AICD, chronic systolic heart failure and coronary artery disease status post bypass grafting, kidney and bladder cancer status post chemo and radiation and chronic persistent atrial fibrillation on long-term anticoagulation. He follows in the office with Dr. Vargas. He is seen and examined sitting up in the chair in no acute distress. He continues to feel overall weak and short of breath. Chest x-ray this morning reveals improved aeration with ongoing vascular congestion and mild edema with small bilateral effusions noted. Laboratory data reviewed, sodium 141, potassium 3.8, creatinine 2.5 to. Blood pressure 93/57 heart rate 62 afebrile maintaining oxygen saturation on room air. Currently maintained on amiodarone 200 mg 3 times a day, Eliquis 2.5 mg twice a day, aspirin 81 mg daily, atorvastatin 80 mg daily, carvedilol 25 mg twice a day, dobutamine infusion and Lasix infusion. Over 2500 mL of urine output in the previous 24 hours. Unsure why amiodarone was initiated. GENERAL: Well-appearing, well-nourished and in no acute distress. NECK: Supple with JVD noted bilaterally or thyromegaly. LUNGS: Bibasilar rales, no wheezes or rhonchi. Diminished bilaterally. Respiration equal and unlabored. HEART: Regular rate and rhythm without murmurs, rubs or gallops. S1 and S2 heard. EXTREMITIES: Normal range of motion, 1+ bilateral lower extremity pitting edema. No clubbing or cyanosis. Peripheral pulses intact. ASSESSMENT Acute on chronic systolic heart failure, ejection fraction less than 20% Chronic persistent atrial fibrillation Acute kidney injury Coronary artery disease status post bypass grafting Ischemic cardiomyopathy Hypertension Dyslipidemia Diabetes mellitus PLAN Continue current medical regimen. Intake and output documentation daily. We will continue to follow and make recommendations accordingly. Nurse Practitioner note has been reviewed, I agree with a documented findings and plan of care. Patient was seen and examined. Objective - Vital Signs Vital signs: Vital Signs Temp 98.3 F 11/25/19 08:31 Pulse 62 11/25/19 08:31 Resp 20 11/25/19 08:31 BP 93/57 11/25/19 08:31 Pulse Ox 98 11/25/19 08:31 Intake & Output 11/24/19 11/25/19 11/25/19 18:59 06:59 18:59 Intake Total 916.667 100 Output Total 1 3 1 Balance 915.667 97 -1 Weight 120.2 kg Intake: Intake, IV Titration 316.667 100 Amount DOBUTamine DRIP 500 mg In 250 Dextrose/Water 1 250ml. bag @ 2.5 MCG/KG/MIN 8. 685 mls/hr IV .Q24H [facility] Rx#:[id number] Furosemide 100 mg In 66.667 100 Sodium Chloride 0.9% 90 ml @ 5 MG/HR 5 mls/hr IV .Q20H [facility] Rx#:[id number] Oral 600 Output: Stool 1 3 1 Other: Voiding Method Indwelling Catheter Indwelling Catheter Indwelling Catheter # Voids 0 # Bowel Movements 0 - Labs CBC & Chem 7: 11/20/19 06:24 11/25/19 06:27 Labs: Abnormal Lab Results - Last 24 Hours (Table) 11/24/19 11/24/19 11/24/19 Range/Units 12:06 16:56 20:25 BUN (9-20) mg/dL Creatinine (0.66-1.25) mg/dL POC Glucose (mg/dL) 164 H 106 H 156 H (75-99) mg/dL 11/25/19 Range/Units 06:27 BUN 83 H (9-20) mg/dL Creatinine 2.52 H (0.66-1.25) mg/dL POC Glucose (mg/dL) (75-99) mg/dL Microbiology - Last 24 Hours (Table) 11/22/19 23:15 Urine Culture - Final Urine,Catheterized
[2019-11-25 11:29] LABS: Glucose,Whole Blood 134 mg/dL (75-99)
[2019-11-25] MEDS: DOBUTamine DRIP 500 MG in DEXTROSE/WATER 1 250ML.BAG IV SCH (11:59)
--- NOTE | 2019-11-25 13:15 | P.PN ---
Subjective Progress Note Date: 11/25/19 Principal diagnosis: Exertional dyspnea, anasarca This is an 79-year-old male patient of Dr. Cavanaugh, with known history of severe ischemic cardiomyopathy, and ejection fraction of less than 20%, status post AICD placement, hypertension, diabetes mellitus, hyperlipidemia, persistent atrial fibrillation, coronary artery disease status post bypass grafting, ex- smoker, chronic congestive heart failure with systolic dysfunction, history of kidney and bladder cancer status post chemo and radiation, who presented to the emergency department on 11/19/2019 with complaints of worsening exertional dyspnea, and increased swelling in his lower extremities. He denied any chest pain, palpitations, no fever or chills, no nausea vomiting, no diaphoresis, no cough or phlegm production. Admission chest x-ray showed creased vascular congestion, and pulmonary edema and a small left pleural effusion. Admission blood work was negative for any leukocytosis, white blood cell count was 8.2, hemoglobin is 10.6, mild lymphopenia, INR is 1.3, potassium is 5.2, the rest of the electrolytes were within normal limits, BUN is 52 creatinine is 2.0, patient does have history of chronic kidney disease stage III, this showed signs of infection although patient denies any symptoms, troponins were 0.031, 0.026, 0.031, proBNP was 2710. We were asked to see the patient in consultation. Patient has been started on infusion of Lasix, early infusing at a rate of 10 mg per hour, and dobutamine drip infusing at 5 mics per kilo per minute. A is on oral Eliquis for history of chronic atrial fibrillation he remains in A. fib with a controlled rate of 93 bpm. He is sitting up in the recliner, in no acute distress, on 4 L of oxygen with a pulse ox of 95-98%, he is been afebrile, he has not diuresed significantly despite the Lasix infusion, and today's blood work shows worsening of his renal profile would be on up to 79 and creatinine is up to 2.7. Nephrology is following. 11/23/2019, the patient was seen and examined at his bedside on the cardiac stepdown unit with Dr. Rivers. He reports he is slightly better today, denies any complaints of pain or shortness of breath just sitting. He is sitting up to the bedside chair and is in no acute distress. Lasix drip at 10 mg per hour and dopamine drip at 2.5 mcg/kg/m continue infusing. He remained hemodynamically stable and currently has oxygen saturations are 96% on 4 L nasal cannula. Repeat chest x-ray was completed this morning which demonstrated cardiomegaly with mild prominence of pulmonary vasculature marking with diffuse increasing lung field markings compatible with congestive heart failure. He has been afebrile the last 24 hours. Lab results today show a BUN 78, creatinine 2.48 and a BNP level 1740. A urine culture was sent yesterday with results pending. On 11/24/2019 the patient was seen and examined with Dr. Rivers. Denies pain, shortness of breath. Sitting up in bed and appears comfortable. Remains afebrile. Hematologically stable. Currently on 4 L nasal cannula with oxygen saturation 97%. Continues on dobutamine at 2.5 mcg and Lasix at 10 mg an hour. Chest x-ray seems to be improving a bit, still has atelectasis present. BUN 84, creatinine 2.37. Urine culture negative. Fluid balance -4 L for the last 48 hours. the patient is seen today 11/25/2019 in follow-up on the selective care unit. He is currently awake and alert in no acute distress. Denies any worsening shortness of breath, cough or congestion. He is still quite edematous especially the lower extremities.he had remained in a negative balance.currently maintaining O2 saturations in the high 90s on 3 L/m per nasal cannula. He is afebrile. Hemodynamically stable.urine culture reveals no growth.sodium 141. Potassium 3.8. Bicarb 23. Creatinine 2.52. He is continued on dobutamine at2.5 mg/kg/m. Lasix drip at 5 mg per hour. Antibiotics in the form of ceftriaxone. Anticoagulated with Eliquis. Objective - Vital Signs Vital signs: Vital Signs Temp 98.4 F 11/25/19 12:15 Pulse 67 11/25/19 12:15 Resp 20 11/25/19 12:15 BP 111/59 11/25/19 12:15 Pulse Ox 99 11/25/19 12:15 Intake & Output 11/24/19 11/25/19 11/25/19 18:59 06:59 18:59 Intake Total 916.667 100 Output Total 1 3 2 Balance 915.667 97 -2 Weight 120.2 kg Intake: Intake, IV Titration 316.667 100 Amount DOBUTamine DRIP 500 mg In 250 Dextrose/Water 1 250ml. bag @ 2.5 MCG/KG/MIN 8. 685 mls/hr IV .Q24H [facility] Rx#:[id number] Furosemide 100 mg In 66.667 100 Sodium Chloride 0.9% 90 ml @ 5 MG/HR 5 mls/hr IV .Q20H [facility] Rx#:[id number] Oral 600 Output: Stool 1 3 2 Other: Voiding Method Indwelling Catheter Indwelling Catheter Indwelling Catheter # Voids 0 # Bowel Movements 0 - Exam GENERAL EXAM: Alert, pleasant 79-year-old gentleman, up in a chair at the bedside, on 2 L nasal cannula comfortable in no apparent distress. HEAD: Normocephalic. EYES: Normal reaction of pupils, equal size. NOSE: Clear with pink turbinates. THROAT: No erythema or exudates. NECK: No masses, no JVD. CHEST: No chest wall deformity. LUNGS: Equal air entry with crackles through the mid lung gibson and lower lung gibson. CVS: S1 and S2 normal with no audible murmur, irregular rhythm. ABDOMEN: No hepatosplenomegaly, normal bowel sounds, no guarding or rigidity. SPINE: No scoliosis or deformity SKIN: No rashes CENTRAL NERVOUS SYSTEM: No focal deficits, tone is normal in all 4 extremities. EXTREMITIES: There is 1-2+ peripheral edema. No clubbing, no cyanosis. Peripheral pulses are intact. - Labs CBC & Chem 7: 11/20/19 06:24 11/25/19 06:27 Labs: Abnormal Lab Results - Last 24 Hours (Table) 11/24/19 11/24/19 11/25/19 Range/Units 16:56 20:25 06:27 BUN 83 H (9-20) mg/dL Creatinine 2.52 H (0.66-1.25) mg/dL POC Glucose (mg/dL) 106 H 156 H (75-99) mg/dL 11/25/19 Range/Units 11:28 BUN (9-20) mg/dL Creatinine (0.66-1.25) mg/dL POC Glucose (mg/dL) 134 H (75-99) mg/dL Microbiology - Last 24 Hours (Table) 11/22/19 23:15 Urine Culture - Final Urine,Catheterized Assessment and Plan Assessment: 1. Acute exacerbation of chronic congestive heart failure with systolic dysfunction 2. Acute kidney injury likely related to cardiorenal syndrome, diuretic therapy, nephrology is following 3. Acute urinary tract infection, placed on ceftriaxone, urine culture negative 4. Ischemic cardiomyopathy, with EF of less than 20%, status post AICD implantation 5. Diabetes mellitus 6. History of chronic persistent atrial fibrillation on oral anticoagulation 7. History of chronic kidney disease stage III at baseline, history of right hydronephrosis and patient follows with urology 8. Coronary artery disease status post bypass grafting 9. Hypertension 10. Hyperlipidemia 11. History of bladder cancer Plan: The patient was seen and evaluated by Dr. Rivers. Chest x-ray and labs reviewed. Continue dobutamine and Lasix drip per cardiology Increase his activity as tolerated Titrate down the FiO2 as tolerated We'll continue to follow I, the cosigning physician, performed a history & physical examination of the patient. Lungs sounds with crackles in the mid and lower lung gibson bilaterally. Maintaining good O2 saturations in the 90s on 2 L/m per nasal cannula. I discussed the assessment and plan of care with my nurse practitioner, Manisha Helton. I attest to the above note as dictated by her.
--- NOTE | 2019-11-25 13:50 | PN ---
PROGRESS NOTE Patient is seen for followup for acute kidney injury cardiorenal, and volume overload, maintained on Lasix drip and dobutamine drip. Urine output is not accurately charted. PHYSICAL EXAMINATION: Blood pressure is from 111/59 to 93/57 earlier this morning, heart rate 62 per minute. Patient is afebrile. EXAMINATION OF THE HEART: S1, S2. EXAMINATION OF THE LUNGS: Decreased breath sounds at bases. ABDOMEN: Soft, obese. Examination of lower extremities shows edema 2 to 3+ bilaterally. [employer] exam grossly intact. LABS: Labs show sodium 141, potassium 3.8, chloride 106, CO2 is 23. BUN 83, serum creatinine 2.52. ASSESSMENT: 1. Acute kidney injury, cardiorenal, maintained on dobutamine and Lasix drip. The urine output is not accurately charted. It says 2 mL and I doubt that this is accurate. Serum creatinine is a bit higher today. The patient remains significantly volume overloaded. I will continue with the dobutamine and Lasix drip for now. 2. Severe cardiomyopathy, ejection fraction 25%. 3. Chronic persistent atrial fibrillation. 4. Coronary artery disease with history of coronary artery bypass surgery. 5. Chronic kidney disease, stage 3, with previous creatinine around 0.9 to 1.2 mg/dL in September of 2018. 6. History of bladder cancer. 7. Right atrophic kidney with solid appearing mass in the lower pole of the right kidney to be followed as outpatient with Urology. PLAN: Continue with the Lasix and dobutamine drip. I will discuss with nursing staff regarding his urine output. MMODL / IJN: [id number] /
--- NOTE | 2019-11-25 16:09 | P.PN ---
Progress Note - Text Progress Note Date: 11/25/19 Chief Complaint: Shortness of breath Patient is a 79-year-old patient of Dr. Cavanaugh. history of chronic atrial fibrillation on anticoagulation with Eliquis, coronary artery disease status post bypass graft, cardiomyopathy status post AICD placement, history of nephrec araceli and unilateral kidney, CK D stage III, hypertension, hyperlipidemia, GERD, diabetes type 2 and history of bipolar/depression came to ER with complaints of worsening shortness of breath and exertional dyspnea and bilateral lower extremity increases swelling for the past 2 weeks. Patient does have minimal cough without any sputum production. No sputum production. No complaints of fever or chills. Denied any sick contacts at home. No recent travel. Admitted with CHF exacerbation, atrial fibrillation with a rapid ventricular rate. Started on IV Lasixdrip and IV amiodarone.then IV dobutamine was added. Today-. Remains on IV Lasix and dobutamine drip. 4 LL in negative fluid balance. remains tired. 2 breathing is better. Up in a chair.oral intake better Review of systems: Was done for constitutional, cardiovascular, GI, pulmonary. relevant finding as above Active Medications Amiodarone HCl (Cordarone) 200 mg PO TID [facility] Last Admin: 11/25/19 07:56 Dose: 200 mg Documented by: Apixaban (Eliquis) 2.5 mg PO BID [facility] Last Admin: 11/25/19 07:55 Dose: 2.5 mg Documented by: Aspirin (Aspirin) 81 mg PO DAILY [facility] Last Admin: 11/25/19 07:55 Dose: 81 mg Documented by: Atorvastatin Calcium (Lipitor) 80 mg PO HS [facility] Last Admin: 11/24/19 21:00 Dose: 80 mg Documented by: Carvedilol (Coreg) 25 mg PO AC-BID [facility] Last Admin: 11/25/19 06:23 Dose: 25 mg Documented by: Cholecalciferol (Vitamin D3 (25 Mcg = 1000 Iu)) 2,000 unit PO DAILY [facility] Last Admin: 11/25/19 07:55 Dose: 2,000 unit Documented by: Cyanocobalamin (Vitamin B-12) 1,000 mcg PO DAILY [facility] Last Admin: 11/25/19 07:56 Dose: 1,000 mcg Documented by: Guaifenesin (Mucinex) 1,200 mg PO Q12HR [facility] Last Admin: 11/25/19 07:55 Dose: 1,200 mg Documented by: Sodium Chloride (Saline 0.9%) 1,000 mls @ 20 mls/hr IV .Q24H [facility] Last Admin: 11/24/19 17:10 Dose: Not Given Documented by: Furosemide 100 mg/ Sodium (Chloride) 100 mls @ 5 mls/hr IV .Q20H [facility] Last Admin: 11/25/19 03:13 Dose: 5 mg/hr, 5 mls/hr Documented by: Dobutamine HCl/Dextrose 500 mg (/ IV Solution) 250 mls @ 8.685 mls/hr IV .Q24H [facility] Last Admin: 11/25/19 11:59 Dose: Not Given Documented by: Ceftriaxone Sodium 1 gm/ (Sodium Chloride) 50 mls @ 100 mls/hr IVPB Q24HR [facility] Last Admin: 11/25/19 07:56 Dose: 100 mls/hr Documented by: Insulin Detemir (Levemir) 40 unit SQ [facility] Last Admin: 11/24/19 21:02 Dose: Not Given Documented by: [facility]ulin [facility] ([facility]) [facility] Last Admin: 11/25/19 07:56 Dose: 10 unit Documented by: Lamotrigine (Lamictal) 100 mg PO [facility] Last Admin: 11/24/19 21:00 Dose: 100 mg Documented by: Melatonin (Melatonin) 3 mg PO [facility] Last Admin: 11/24/19 21:00 Dose: 3 mg Documented by: Midodrine (Proamatine) 10 mg PO AC-TID [facility] Last Admin: 11/25/19 12:04 Dose: 10 mg Documented by: Ondansetron HCl (Zofran) 4 mg IVP Q6HR PRN PRN Reason: Nausea And Vomiting Last Admin: 11/24/19 16:43 Dose: 4 mg Documented by: Venlafaxine HCl (Effexor) 75 mg PO BID [facility] Last Admin: 11/25/19 08:28 Dose: 75 mg Documented by: On examination: VITAL SIGNS: 98.3, 62, 16, 93/57, 98% on 4 L GENERAL APPEARANCE: Sitting up in a recliner, tired, less short of breath HEENT: Normal external appearance of nose and ear. Oral cavity normal EYES: Pupils equal. Conjunctiva normal. NECK: JVD raised. Mass not palpable. RESPIRATORY: Respiratory effort increased. Decreased breath sounds. Decreased crackles CARDIOVASCULAR: Heart sounds irregular, edema decreasing. ABDOMEN: Soft. Liver and spleen not palpable. No tenderness. No mass palpable. Bansal catheter with some hematuria PSYCHIATRY: Alert and oriented x3. Mood and affect normal. INVESTIGATIONS, reviewed in the clinical context: bun 83 creatinine 2.5 to Previous testing: White count 8.2 hemoglobin 10.6 potassium 5.2 bun 52 creatinine 2.0 troponin I 0.0-3 EKG-possible A. fib Chest x-ray film personally reviewed by me-pulmonary edema cardiomegaly BUN/creatinine on October 07 Assessment: Acute on chronic congestive heart failure exacerbation from systolic dysfunction, EF less than 30% per cardiology, slow to respond. -Hypotension multifactorial Ischemic cardiomyopathy Persistent atrial fibrillation on anticoagulation with Eliquis, rate better controlled Acute kidney injury secondary to cardiorenal syndrome, -chronic kidney disease stage III. Mild hyperkalemia secondary to acute kidney injury Lactic acidosis-type II History of nephrectomy due to renal cancer and bladder cancer history Diabetes type 2. Insulin-dependent and also on metformin and glipizide. Hyperlipidemia Coronary artery disease with history of multiple stents placement Bipolar disorder and depression GERD Obesity with BMI 34.9 - Plan: Remains on IV Lasix and IV dobutamine drip. overall prognosis guarded. Discussed with the patient. Encouraged oral intake..
[2019-11-25 16:38] LABS: Glucose,Whole Blood 121 mg/dL (75-99)
[2019-11-25] MEDS: SODIUM CHLORIDE 0.9% 1,000 ML IV SCH (17:17)
[2019-11-25 20:40] LABS: Glucose,Whole Blood 204 mg/dL (75-99)
[2019-11-25] MEDS: MELATONIN 3 MG TABLET PO SCH (22:14)
[2019-11-25] MEDS: ATORVASTATIN 80 MG TAB PO SCH (22:14)
[2019-11-25] MEDS: lamoTRIgine 100 MG TAB PO SCH (22:15)
[2019-11-26 05:54] LABS: Glucose,Whole Blood 157 mg/dL (75-99)
[2019-11-26] MEDS: CARVEDILOL 12.5 MG TAB PO SCH ×2 (06:23→16:41)
[2019-11-26] MEDS: MIDODRINE 5 MG TAB PO SCH ×3 (06:23→16:41)
[2019-11-26] MEDS: guaiFENesin 600 MG TABLET.ER PO SCH ×2 (08:22→20:25)
[2019-11-26] MEDS: CHOLECALCIFEROL 1,000 UNIT TAB PO SCH (08:22)
[2019-11-26] MEDS: CYANOCOBALAMIN 500 MCG TAB PO SCH (08:22)
[2019-11-26] MEDS: APIXABAN 2.5 MG TABLET PO SCH ×2 (08:23→20:25)
[2019-11-26] MEDS: ASPIRIN 81 MG PO SCH (08:23)
[2019-11-26] MEDS: INSULIN DETEMIR (LEVEMIR) 100 UNIT/ML SYR SQ SCH ×2 (08:23→20:25)
[2019-11-26] MEDS: AMIODARONE 200 MG TAB PO SCH ×3 (08:23→20:25)
[2019-11-26] MEDS: VENLAFAXINE HCL 75 MG TAB PO SCH ×2 (08:23→20:25)
[2019-11-26 09:50] LABS: Calcium 8.7 mg/dL (8.4-10.2); Potassium 3.8 mmol/L (3.5-5.1)
[2019-11-26 11:42] LABS: Glucose,Whole Blood 115 mg/dL (75-99)
--- NOTE | 2019-11-26 11:47 | PN ---
PROGRESS NOTE Tr is an 79-year-old gentleman who is admitted to hospital with acute exacerbation of chronic systolic heart failure Has history of CAD, cardiomyopathy, AICD, prior bypass surgery, renal insufficiency, bladder cancer status post chemo radiation and chronic persistent atrial fibrillation. The patient states that he is less short of breath today. He is on Lasix drip along with the dobutamine at 2.5. He had been on dobutamine for about 4 days. On exam today, heart rate is 60 beats per minute, blood pressure is 93/60, respiratory rate is 16, O2 saturation is 99% on 2 L. Chest exam reveals diminished air entry at the bases. I do not hear any crackles. Heart exam reveals first and second heart sounds, irregular rhythm. Exam of extremities reveals bilateral leg edema that has improved compared to where we were yesterday. LAB: Show a BUN of 77, creatinine of 2.2, which is an improvement from yesterday when the BUN was 83. ASSESSMENT: 1. Acute exacerbation of chronic systolic heart failure. 2. Chronic renal insufficiency. 3. Permanent atrial fibrillation. 4. Coronary artery disease status post coronary artery bypass graft. PLAN: I will stop the dobutamine today. Continue the Lasix drip. Continue the aspirin, Eliquis, Lipitor, amiodarone primarily for rate control and reassess him tomorrow. If his urine output continues to be good and symptomatically he improves we may be able to switch him from Lasix drip to p.o. Lasix over the next 24-48. MMJESSICAL / JIMN: [id number] /
--- NOTE | 2019-11-26 12:04 | P.PN ---
Subjective Progress Note Date: 11/26/19 Principal diagnosis: Exertional dyspnea, anasarca This is an 79-year-old male patient of Dr. Cavanaugh, with known history of severe ischemic cardiomyopathy, and ejection fraction of less than 20%, status post AICD placement, hypertension, diabetes mellitus, hyperlipidemia, persistent atrial fibrillation, coronary artery disease status post bypass grafting, ex- smoker, chronic congestive heart failure with systolic dysfunction, history of kidney and bladder cancer status post chemo and radiation, who presented to the emergency department on 11/19/2019 with complaints of worsening exertional dyspnea, and increased swelling in his lower extremities. He denied any chest pain, palpitations, no fever or chills, no nausea vomiting, no diaphoresis, no cough or phlegm production. Admission chest x-ray showed creased vascular congestion, and pulmonary edema and a small left pleural effusion. Admission blood work was negative for any leukocytosis, white blood cell count was 8.2, hemoglobin is 10.6, mild lymphopenia, INR is 1.3, potassium is 5.2, the rest of the electrolytes were within normal limits, BUN is 52 creatinine is 2.0, patient does have history of chronic kidney disease stage III, this showed signs of infection although patient denies any symptoms, troponins were 0.031, 0.026, 0.031, proBNP was 2710. We were asked to see the patient in consultation. Patient has been started on infusion of Lasix, early infusing at a rate of 10 mg per hour, and dobutamine drip infusing at 5 mics per kilo per minute. A is on oral Eliquis for history of chronic atrial fibrillation he remains in A. fib with a controlled rate of 93 bpm. He is sitting up in the recliner, in no acute distress, on 4 L of oxygen with a pulse ox of 95-98%, he is been afebrile, he has not diuresed significantly despite the Lasix infusion, and today's blood work shows worsening of his renal profile would be on up to 79 and creatinine is up to 2.7. Nephrology is following. 11/23/2019, the patient was seen and examined at his bedside on the cardiac stepdown unit with Dr. Rivers. He reports he is slightly better today, denies any complaints of pain or shortness of breath just sitting. He is sitting up to the bedside chair and is in no acute distress. Lasix drip at 10 mg per hour and dopamine drip at 2.5 mcg/kg/m continue infusing. He remained hemodynamically stable and currently has oxygen saturations are 96% on 4 L nasal cannula. Repeat chest x-ray was completed this morning which demonstrated cardiomegaly with mild prominence of pulmonary vasculature marking with diffuse increasing lung field markings compatible with congestive heart failure. He has been afebrile the last 24 hours. Lab results today show a BUN 78, creatinine 2.48 and a BNP level 1740. A urine culture was sent yesterday with results pending. On 11/24/2019 the patient was seen and examined with Dr. Rivers. Denies pain, shortness of breath. Sitting up in bed and appears comfortable. Remains afebrile. Hematologically stable. Currently on 4 L nasal cannula with oxygen saturation 97%. Continues on dobutamine at 2.5 mcg and Lasix at 10 mg an hour. Chest x-ray seems to be improving a bit, still has atelectasis present. BUN 84, creatinine 2.37. Urine culture negative. Fluid balance -4 L for the last 48 hours. the patient is seen today 11/25/2019 in follow-up on the selective care unit. He is currently awake and alert in no acute distress. Denies any worsening shortness of breath, cough or congestion. He is still quite edematous especially the lower extremities.he had remained in a negative balance.currently maintaining O2 saturations in the high 90s on 3 L/m per nasal cannula. He is afebrile. Hemodynamically stable.urine culture reveals no growth.sodium 141. Potassium 3.8. Bicarb 23. Creatinine 2.52. He is continued on dobutamine at 2.5 mg/kg/m. Lasix drip at 5 mg per hour. Antibiotics in the form of ceftriaxone. Anticoagulated with Eliquis. The patient is seen today 11/26/2019 in follow-up on the selective care unit. Sitting up in a chair at the bedside. Awake and alert in no acute distress. Breathing a bit easier today compared to yesterday. Maintaining O2 saturations at 99% on 2 L/m per nasal cannula. He's been afebrile. Urine culture revealed no growth. Sodium 141. Potassium 3.8. Creatinine 2.23. Dobutamine has been discontinued. He is on a Lasix drip at 5 mg per hour. Currently in a positive balance. Weight is down 2 kg. Bansal catheter remains in place. Antibiotics in the form of ceftriaxone. Anticoagulated with Eliquis. Objective - Vital Signs Vital signs: Vital Signs Temp 98.3 F 11/26/19 08:29 Pulse 62 11/26/19 08:29 Resp 16 11/26/19 08:29 BP 93/61 11/26/19 08:29 Pulse Ox 99 11/26/19 08:29 Intake & Output 11/25/19 11/26/19 11/26/19 18:59 06:59 18:59 Intake Total 720 100 120 Output Total 703 3 1 Balance 17 97 119 Weight 118.3 kg Intake: Intake, IV Titration 100 Amount Furosemide 100 mg In 100 Sodium Chloride 0.9% 90 ml @ 5 MG/HR 5 mls/hr IV .Q20H [facility] Rx#:[id number] Oral 720 120 Output: Urine 700 Stool 3 3 1 Other: Voiding Method Indwelling Catheter Indwelling Catheter Indwelling Catheter - Exam GENERAL EXAM: Alert, 79-year-old gentleman, up in a chair at the bedside, on 2 L nasal cannula with an O2 saturation of 99%, comfortable in no apparent distress. HEAD: Normocephalic. EYES: Normal reaction of pupils, equal size. NOSE: Clear with pink turbinates. THROAT: No erythema or exudates. NECK: No masses, no JVD. CHEST: No chest wall deformity. LUNGS: Equal air entry with crackles through the mid lung gibson and lower lung gibson. CVS: S1 and S2 normal with no audible murmur, irregular rhythm. ABDOMEN: No hepatosplenomegaly, normal bowel sounds, no guarding or rigidity. SPINE: No scoliosis or deformity SKIN: No rashes CENTRAL NERVOUS SYSTEM: No focal deficits, tone is normal in all 4 extremities. EXTREMITIES: There is 1-2+ peripheral edema. No clubbing, no cyanosis. Peripheral pulses are intact. - Labs CBC & Chem 7: 11/20/19 06:24 11/26/19 09:08 Labs: Abnormal Lab Results - Last 24 Hours (Table) 11/25/19 11/25/19 11/26/19 Range/Units 16:37 20:38 05:53 BUN (9-20) mg/dL Creatinine (0.66-1.25) mg/dL Glucose (74-99) mg/dL POC Glucose (mg/dL) 121 H 204 H 157 H (75-99) mg/dL 11/26/19 11/26/19 Range/Units 09:08 11:41 BUN 77 H (9-20) mg/dL Creatinine 2.23 H (0.66-1.25) mg/dL Glucose 129 H (74-99) mg/dL POC Glucose (mg/dL) 115 H (75-99) mg/dL Assessment and Plan Assessment: 1. Acute exacerbation of chronic congestive heart failure with systolic dysfunction 2. Acute kidney injury likely related to cardiorenal syndrome, diuretic therapy, nephrology is following 3. Acute urinary tract infection, placed on ceftriaxone, urine culture negative 4. Ischemic cardiomyopathy, with EF of less than 20%, status post AICD implantation 5. Diabetes mellitus 6. History of chronic persistent atrial fibrillation on oral anticoagulation 7. History of chronic kidney disease stage III at baseline, history of right hydronephrosis and patient follows with urology 8. Coronary artery disease status post bypass grafting 9. Hypertension 10. Hyperlipidemia 11. History of bladder cancer Plan: The patient was seen and evaluated by Dr. Rivers. Continue Lasix drip Repeat chest x-ray in the a.m. Increase his activity as tolerated Titrate down the FiO2 as tolerated We'll continue to follow I, the cosigning physician, performed a history & physical examination of the patient. Lungs sounds with crackles in the mid and lower lung gibson bilaterally. Maintaining good O2 saturations in the 90s on 2 L/m per nasal cannula. I discussed the assessment and plan of care with my nurse practitioner, Manisha Helton. I attest to the above note as dictated by her.
--- NOTE | 2019-11-26 14:20 | PN ---
PROGRESS NOTE Patient is seen for followup for acute kidney injury, cardiorenal syndrome, and a severe volume overload. Currently maintained, maintained on IV dobutamine and Lasix drip. The patient has been diuresing. He has an indwelling Bansal catheter. His 24 hour urine output is not accurately charted. His weight is down. Overall, he states he feels about the same. PHYSICAL EXAMINATION: On examination today, blood pressure was 93/61, heart rate 62 per minute. He is afebrile. Examination of the heart S1, S2. Examination of the lungs, decreased breath sounds at bases. ABDOMEN: Soft. Morbidly obese. Examination of lower extremities shows 3+ edema bilaterally. DIETETIC TECHNICIAN REGISTERED exam grossly intact. LAB: Show sodium 141, potassium 3.8, chloride 104, CO2 is 25, BUN 77, creatinine 2.23. ASSESSMENT: 1. Acute kidney injury cardiorenal, currently improving. Continue with Lasix and dobutamine drip for now. 2. Severe cardiomyopathy, ejection fraction of about 25%. 3. Chronic kidney disease stage 3. Previous creatinine 0.9-1.2 mg/dL in September of 2018. 4. History of bladder cancer. 5. Chronic persistent atrial fibrillation. 6. Coronary artery disease with history of coronary artery bypass surgery. 7. Atrophic right kidney with solid appearing mass in the lower pole of the right kidney to be followed up by Urology as outpatient. Patient does see Urology on a regular basis. PLAN: Continue with Lasix and dobutamine. Can likely switch to IV push Lasix tomorrow. Continue accurate I&Os and daily weights. MMODL / IJN: [id number] /
[2019-11-26] MEDS: SODIUM CHLORIDE 0.9% 1,000 ML IV SCH (15:43)
--- NOTE | 2019-11-26 16:14 | P.PN ---
Progress Note - Text Progress Note Date: 11/26/19 Chief Complaint: Shortness of breath Patient is a 79-year-old patient of Dr. Cavanaugh. history of chronic atrial fibrillation on anticoagulation with Eliquis, coronary artery disease status post bypass graft, cardiomyopathy status post AICD placement, history of nephrec araceli and unilateral kidney, CK D stage III, hypertension, hyperlipidemia, GERD, diabetes type 2 and history of bipolar/depression came to ER with complaints of worsening shortness of breath and exertional dyspnea and bilateral lower extremity increases swelling for the past 2 weeks. Patient does have minimal cough without any sputum production. No sputum production. No complaints of fever or chills. Denied any sick contacts at home. No recent travel. Admitted with CHF exacerbation, atrial fibrillation with a rapid ventricular rate. Started on IV Lasixdrip and IV amiodarone.then IV dobutamine was added. Today-. IV dobutamine was discontinued. Remains on IV Lasix drip. Breathing better. Edema slowly going down. Appetite improving slowly Review of systems: Was done for constitutional, cardiovascular, GI, pulmonary. relevant finding as above Active Medications Amiodarone HCl (Cordarone) 200 mg PO TID [facility] Last Admin: 11/26/19 15:45 Dose: 200 mg Documented by: Apixaban (Eliquis) 2.5 mg PO BID [facility] Last Admin: 11/26/19 08:23 Dose: 2.5 mg Documented by: Aspirin (Aspirin) 81 mg PO DAILY [facility] Last Admin: 11/26/19 08:23 Dose: 81 mg Documented by: Atorvastatin Calcium (Lipitor) 80 mg PO HS [facility] Last Admin: 11/25/19 22:14 Dose: 80 mg Documented by: Carvedilol (Coreg) 25 mg PO AC-BID [facility] Last Admin: 11/26/19 06:23 Dose: 25 mg Documented by: Cholecalciferol (Vitamin D3 (25 Mcg = 1000 Iu)) 2,000 unit PO DAILY [facility] Last Admin: 11/26/19 08:22 Dose: 2,000 unit Documented by: Cyanocobalamin (Vitamin B-12) 1,000 mcg PO DAILY [facility] Last Admin: 11/26/19 08:22 Dose: 1,000 mcg Documented by: Guaifenesin (Mucinex) 1,200 mg PO Q12HR [facility] Last Admin: 11/26/19 08:22 Dose: 1,200 mg Documented by: Sodium Chloride (Saline 0.9%) 1,000 mls @ 20 mls/hr IV .Q24H [facility] Last Admin: 11/26/19 15:43 Dose: Not Given Documented by: Furosemide 100 mg/ Sodium (Chloride) 100 mls @ 5 mls/hr IV .Q20H [facility] Last Admin: 11/25/19 23:30 Dose: 5 mg/hr, 5 mls/hr Documented by: Ceftriaxone Sodium 1 gm/ (Sodium Chloride) 50 mls @ 100 mls/hr IVPB Q24HR [facility] Last Admin: 11/26/19 08:23 Dose: 100 mls/hr Documented by: Insulin Detemir (Levemir) 40 unit SQ [facility] Last Admin: 11/25/19 22:14 Dose: 40 unit Documented by: Insulin Detemir (Levemir) [facility] [place] [facility] Last Admin: 11/26/19 08:23 Dose: 10 unit Documented by: Lamotrigine (Lamictal) 100 mg PO [facility] Last Admin: 11/25/19 22:15 Dose: 100 mg Documented by: Melatonin (Melatonin) 3 mg PO [facility] Last Admin: 11/25/19 22:14 Dose: 3 mg Documented by: Midodrine (Proamatine) 10 mg PO AC-TID [facility] Last Admin: 11/26/19 12:11 Dose: 10 mg Documented by: Ondansetron HCl (Zofran) 4 mg IVP Q6HR PRN PRN Reason: Nausea And Vomiting Last Admin: 11/24/19 16:43 Dose: 4 mg Documented by: Venlafaxine HCl (Effexor) 75 mg PO BID [facility] Last Admin: 11/26/19 08:23 Dose: 75 mg Documented by: On examination: VITAL SIGNS: 98.3, 62, 16, 93/61, 99% on 2 L GENERAL APPEARANCE: Sitting up in a recliner, looking better HEENT: Normal external appearance of nose and ear. Oral cavity normal EYES: Pupils equal. Conjunctiva normal. NECK: JVD raised. Mass not palpable. RESPIRATORY: Respiratory effort increased. Decreased breath sounds. CARDIOVASCULAR: Heart sounds irregular, edema decreased ABDOMEN: Soft. Liver and spleen not palpable. No tenderness. No mass palpable. Bansal catheter-hematuria cleared PSYCHIATRY: Alert and oriented x3. Mood and affect normal. INVESTIGATIONS, reviewed in the clinical context: Bun 77 creatinine 2.23 Previous testing: White count 8.2 hemoglobin 10.6 potassium 5.2 bun 52 creatinine 2.0 troponin I 0.0-3 EKG-possible A. fib Chest x-ray film personally reviewed by me-pulmonary edema cardiomegaly BUN/creatinine on October 07 Assessment: Acute on chronic congestive heart failure exacerbation from systolic dysfunction, EF less than 30% per cardiology, slow to respond. -Hypotension multifactorial Ischemic cardiomyopathy Persistent atrial fibrillation on anticoagulation with Eliquis, rate better controlled Acute kidney injury secondary to cardiorenal syndrome, -chronic kidney disease stage III. Mild hyperkalemia secondary to acute kidney injury Lactic acidosis-type II History of nephrectomy due to renal cancer and bladder cancer history Diabetes type 2. Insulin-dependent and also on metformin and glipizide. Hyperlipidemia Coronary artery disease with history of multiple stents placement Bipolar disorder and depression GERD Obesity with BMI 34.9 - Plan: Remains on IV Lasix drip. IV dobutamine discontinued. Other medication treatment plan to continue. Discussed with patient.
[2019-11-26 17:09] LABS: Glucose,Whole Blood 212 mg/dL (75-99)
[2019-11-26] MEDS: lamoTRIgine 100 MG TAB PO SCH (20:24)
[2019-11-26 20:25] LABS: Glucose,Whole Blood 205 mg/dL (75-99)
[2019-11-26] MEDS: ATORVASTATIN 80 MG TAB PO SCH (20:25)
[2019-11-26] MEDS: MELATONIN 3 MG TABLET PO SCH (20:25)
[2019-11-26] MEDS: DOBUTamine DRIP 500 MG in DEXTROSE/WATER 1 250ML.BAG IV SCH (20:35)
[2019-11-27 05:47] LABS: Glucose,Whole Blood 167 mg/dL (75-99)
[2019-11-27] MEDS: MIDODRINE 5 MG TAB PO SCH ×3 (06:04→17:36)
[2019-11-27] MEDS: FUROSEMIDE 100 MG in SODIUM CHLORIDE 0.9% 90 ML IV SCH (06:04)
[2019-11-27] MEDS: CARVEDILOL 12.5 MG TAB PO SCH ×2 (06:04→17:36)
--- NOTE | 2019-11-27 07:49 | XR ---
EXAMINATION TYPE: XR chest 1V portable DATE OF EXAM: 11/27/2019 HISTORY: Shortness of breath. COMPARISON: 11/25/2019 TECHNIQUE: Single view of the chest is submitted. FINDINGS: Demonstrated are scattered senescent parenchymal change. Extensive interstitial and alveolar infiltrates persist although there appears to be mild interval im provement. Small Pleural effusions noted. The heart is stable. Hilar and mediastinal structures are within normal limits. Degenerative changes are seen of the dorsal spine. IMPRESSION: 1. Extensive interstitial and alveolar infiltrates persist although there appears to be mild interva l improvement. Small Pleural effusions noted.
--- NOTE | 2019-11-27 08:52 | P.PN ---
Subjective Patient is seen in follow-up for acute kidney injury on chronic kidney disease. He is currently maintained on Lasix drip. Complains of upset stomach. He is maintained on Lasix drip. Edema slowly improving. Good urine output. Vital signs are stable. General: The patient appeared well nourished and normally developed. HEENT: Head exam is unremarkable. Neck is without jugular venous distension. LUNGS: Lungs are clear to auscultation and percussion. Breath sounds decreased. HEART: Rate and Rhythm are regular. ABDOMEN: Nontender. Nondistended. EXTREMITITES: 2+ edema. Objective - Vital Signs Vital signs: Vital Signs Temp 98.5 F 11/27/19 04:00 Pulse 74 11/27/19 04:00 Resp 18 11/27/19 04:00 BP 114/72 11/27/19 04:00 Pulse Ox 97 11/27/19 04:00 Intake & Output 11/26/19 11/27/19 11/27/19 18:59 06:59 18:59 Intake Total 720 100 Output Total 3 501 Balance 717 -401 Weight 116.8 kg Intake: Intake, IV Titration 100 Amount Furosemide 100 mg In 100 Sodium Chloride 0.9% 90 ml @ 5 MG/HR 5 mls/hr IV .Q20H [facility] Rx#:[id number] Oral 720 Output: Urine 500 Stool 3 1 Other: Voiding Method Indwelling Catheter Indwelling Catheter - Labs CBC & Chem 7: 11/20/19 06:24 11/26/19 09:08 Labs: Abnormal Lab Results - Last 24 Hours (Table) 11/26/19 11/26/19 11/26/19 Range/Units 09:08 11:41 17:08 BUN 77 H (9-20) mg/dL Creatinine 2.23 H (0.66-1.25) mg/dL Glucose 129 H (74-99) mg/dL POC Glucose (mg/dL) 115 H 212 H (75-99) mg/dL 11/26/19 11/27/19 Range/Units 20:24 05:42 BUN (9-20) mg/dL Creatinine (0.66-1.25) mg/dL Glucose (74-99) mg/dL POC Glucose (mg/dL) 205 H 167 H (75-99) mg/dL Assessment and Plan Plan: Assessment: 1. Acute kidney injury secondary to ATN secondary to cardiorenal syndrome. Renal function stable with creatinine in the range of 2-2.5. 2. Chronic kidney disease stage III with baseline creatinine in the range of 0.9-1.2. 3. Acute on chronic systolic CHF with ejection fraction of 25%. 4. Volume overload. 5. Atrophic right kidney with mass. Patient will follow-up with urology outpatient. 6. Insulin-dependent diabetes mellitus. Plan: Discontinue Lasix drip. Start IV Lasix 60 mg twice daily. Add metolazone 5 mg once daily. Low-salt diet and 1500 mL fluid restriction. Daily weights. Repeat electrolytes in the morning.
[2019-11-27] MEDS: CHOLECALCIFEROL 1,000 UNIT TAB PO SCH (09:24)
[2019-11-27] MEDS: APIXABAN 2.5 MG TABLET PO SCH ×2 (09:24→20:29)
[2019-11-27] MEDS: ASPIRIN 81 MG PO SCH (09:24)
[2019-11-27] MEDS: guaiFENesin 600 MG TABLET.ER PO SCH ×2 (09:25→20:29)
[2019-11-27] MEDS: CYANOCOBALAMIN 500 MCG TAB PO SCH (09:25)
[2019-11-27] MEDS: AMIODARONE 200 MG TAB PO SCH ×3 (09:26→23:25)
[2019-11-27] MEDS: FUROSEMIDE 10 MG/ML 10 ML VIAL IV SCH ×2 (09:27→20:29)
[2019-11-27] MEDS: INSULIN DETEMIR (LEVEMIR) 100 UNIT/ML SYR SQ SCH ×2 (09:29→21:40)
[2019-11-27] MEDS: VENLAFAXINE HCL 75 MG TAB PO SCH ×2 (09:33→20:29)
[2019-11-27 11:30] LABS: Glucose,Whole Blood 166 mg/dL (75-99)
--- NOTE | 2019-11-27 12:16 | P.PN ---
Subjective Progress Note Date: 11/27/19 79-year-old male patient of Dr. Cavanaugh, with known history of severe ischemic cardiomyopathy, and ejection fraction of less than 20%, status post AICD placement, hypertension, diabetes mellitus, hyperlipidemia, persistent atrial fibrillation, coronary artery disease status post bypass grafting, ex-smoker, chronic congestive heart failure with systolic dysfunction, history of kidney and bladder cancer status post chemo and radiation, who presented to the emergency department on 11/19/2019 with complaints of worsening exertional dyspnea, and increased swelling in his lower extremities. He denied any chest pain, palpitations, no fever or chills, no nausea vomiting, no diaphoresis, no cough or phlegm production. Admission chest x-ray showed creased vascular congestion, and pulmonary edema and a small left pleural effusion. Admission blood work was negative for any leukocytosis, white blood cell count was 8.2, hemoglobin is 10.6, mild lymphopenia, INR is 1.3, potassium is 5.2, the rest of the electrolytes were within normal limits, BUN is 52 creatinine is 2.0, patient does have history of chronic kidney disease stage III, this showed signs of infection although patient denies any symptoms, troponins were 0.031, 0.026, 0.031, proBNP was 2710. We were asked to see the patient in consultation. Patient has been started on infusion of Lasix, early infusing at a rate of 10 mg per hour, and dobutamine drip infusing at 5 mics per kilo per minute. A is on oral Eliquis for history of chronic atrial fibrillation he remains in A. fib with a controlled rate of 93 bpm. He is sitting up in the recliner, in no acute distress, on 4 L of oxygen with a pulse ox of 95-98%, he is been afebrile, he has not diuresed significantly despite the Lasix infusion, and today's blood work shows worsening of his renal profile would be on up to 79 and creatinine is up to 2.7. Nephrology is following. On 11/27/2019 patient seen in follow-up on selective care unit, he is awake and alert, in no acute distress, sitting up in the recliner, he is currently on 2 L of oxygen, his pulse ox 96%, his been afebrile, hemodynamically patient is stable, he is currently off dobutamine and Lasix drip, his breathing has significantly improved, lower extremity edema improved. Today's chest x-ray showed extensive interstitial and alveolar infiltrates with some improvement. There were also small pleural effusions no new labs today, patient remains on diuretics at 60 mg every 12 hours, nephrology is managing, he remains on Rocephin for possible urinary tract infection, his been afebrile, no urinary symptoms. Objective - Vital Signs Vital signs: Vital Signs Temp 97.6 F 11/27/19 08:00 Pulse 95 11/27/19 08:00 Resp 16 11/27/19 08:00 BP 97/53 11/27/19 08:00 Pulse Ox 96 11/27/19 08:00 Intake & Output 11/26/19 11/27/19 11/27/19 18:59 06:59 18:59 Intake Total 720 100 125 Output Total 3 501 Balance 717 -401 125 Weight 116.8 kg Intake: Intake, IV Titration 100 Amount Furosemide 100 mg In 100 Sodium Chloride 0.9% 90 ml @ 5 MG/HR 5 mls/hr IV .Q20H [facility] Rx#:[id number] Oral 720 125 Output: Urine 500 Stool 3 1 Other: Voiding Method Indwelling Catheter Indwelling Catheter Indwelling Catheter - Exam GENERAL EXAM: Alert, very pleasant, 79-year-old male, on 2 L of oxygen with a pulse ox of 96 %, sitting up in the recliner, appears to have quite significant generalized edema, anasarca, but no acute respiratory distress HEAD: Normocephalic/atraumatic. EYES: Normal reaction of pupils, equal size. Conjunctiva pink, sclera white. NOSE: Clear with pink turbinates. THROAT: No erythema or exudates. NECK: No masses, no JVD, no thyroid enlargement, no adenopathy. CHEST: No chest wall deformity. Symmetrical expansion. LUNGS: Equal air entry with fine basilar crackles at bilateral bases CVS: Irregular rate and rhythm, normal S1 and S2, no gallops, no murmurs, no rubs ABDOMEN: Soft, nontender. No hepatosplenomegaly, normal bowel sounds, no guarding or rigidity. EXTREMITIES: No clubbing, significant 2+ lower extremity edema, no cyanosis, 2+ pulses and upper and lower extremities. MUSCULOSKELETAL: Muscle strength and tone normal. SPINE: No scoliosis or deformity SKIN: No rashes CENTRAL NERVOUS SYSTEM: Alert and oriented -3. No focal deficits, tone is normal in all 4 extremities. PSYCHIATRIC: Alert and oriented -3. Appropriate affect. Intact judgment and insight. - Labs CBC & Chem 7: 11/20/19 06:24 11/26/19 09:08 Labs: Abnormal Lab Results - Last 24 Hours (Table) 11/26/19 11/26/19 11/27/19 Range/Units 17:08 20:24 05:42 POC Glucose (mg/dL) 212 H 205 H 167 H (75-99) mg/dL 11/27/19 Range/Units 11:29 POC Glucose (mg/dL) 166 H (75-99) mg/dL Assessment and Plan Plan: Assessment: #1. Acute exacerbation of chronic congestive heart failure with systolic dysfunction #2. Acute kidney injury likely related to cardiorenal syndrome, diuretic therapy, nephrology is following #3. Acute urinary tract infection, although patient is asymptomatic, we'll start on empiric Rocephin #4. Ischemic cardiomyopathy, with EF of less than 20%, status post AICD implantation #5. Diabetes mellitus #6. History of chronic persistent atrial fibrillation on oral anticoagulation #7. History of chronic kidney disease stage III at baseline, history of right hydronephrosis and patient follows with urology #8. Coronary artery disease status post bypass grafting #9. Hypertension #10. Hyperlipidemia #11. History of bladder cancer Plan: Continue current medical management, diuretics per nephrology, patient is maintaining negative fluid balance, his chest x-ray shows improvement in the appearance of interstitial edema, small pleural effusions. Lower extremity edema is improving, we'll continue to follow I performed a history & physical examination of the patient and discussed their management with my nurse practitioner, Vicki Enamorado. I reviewed the nurse practitioner's note and agree with the documented findings and plan of care. Lung sounds are positive for fine rales. The findings and the impression was discussed with the patient. I attest to the documentation by the nurse practitioner. Time with Patient: Less than 30
[2019-11-27] MEDS: METOLAZONE 5 MG TAB PO SCH (12:46)
--- NOTE | 2019-11-27 13:22 | PN ---
PROGRESS NOTE Mr. Bhakta is a patient with ischemic cardiomyopathy, was in heart failure. We had placed him on a dobutamine and Lasix drip. Both of these are discontinued. He looks better. Complains of fatigue. No chest pain. He is in atrial fib. Rate control is good. Vitals are stable. JVD is evident. S1, S2 heard normally, irregular rate and rhythm. Short systolic murmur. Lungs reveal improved entry. Abdomen is soft. Lower extremity edema has improved. Plan is to leave him on IV push Lasix. Check a BMP tomorrow. Continue all his other medications as before. He is off the Lasix drip, but the patient has improved clinically and his creatinine is lower. His weight has also improved somewhat compared to when he came in. We will therefore continue his current medications which include Coreg 25 mg b.i.d. and atorvastatin and aspirin and apixaban 2.5 mg b.i.d. His Zaroxolyn 5 mg daily and the Lasix IV push has been resumed by anesthesia technician, Dr. Payan. We will continue to follow him, but no intervention from a cardiac standpoint at this time. MMODL / IJN: [id number] /
[2019-11-27 16:35] LABS: Glucose,Whole Blood 214 mg/dL (75-99)
[2019-11-27] MEDS: SODIUM CHLORIDE 0.9% 1,000 ML IV SCH (17:35)
--- NOTE | 2019-11-27 18:20 | P.PN ---
Progress Note - Text Progress Note Date: 11/27/19 Chief Complaint: Shortness of breath Patient is a 79-year-old patient of Dr. Cavanaugh. history of chronic atrial fibrillation on anticoagulation with Eliquis, coronary artery disease status post bypass graft, cardiomyopathy status post AICD placement, history of nephrec araceli and unilateral kidney, CK D stage III, hypertension, hyperlipidemia, GERD, diabetes type 2 and history of bipolar/depression came to ER with complaints of worsening shortness of breath and exertional dyspnea and bilateral lower extremity increases swelling for the past 2 weeks. Patient does have minimal cough without any sputum production. No sputum production. No complaints of fever or chills. Denied any sick contacts at home. No recent travel. Admitted with CHF exacerbation, atrial fibrillation with a rapid ventricular rate. Started on IV Lasixdrip and IV amiodarone.then IV dobutamine was added. Today-. Patient just feels tired. Has been social to IV Lasix push. Did tolerate some diet. Decreased edema Review of systems: Was done for constitutional, cardiovascular, GI, pulmonary. relevant finding as above Active Medications Amiodarone HCl (Cordarone) 200 mg PO TID [facility] Last Admin: 11/27/19 15:18 Dose: 200 mg Documented by: Apixaban (Eliquis) 2.5 mg PO BID [facility] Last Admin: 11/27/19 09:24 Dose: 2.5 mg Documented by: Aspirin (Aspirin) 81 mg PO DAILY [facility] Last Admin: 11/27/19 09:24 Dose: 81 mg Documented by: Atorvastatin Calcium (Lipitor) 80 mg PO HS [facility] Last Admin: 11/26/19 20:25 Dose: 80 mg Documented by: Carvedilol (Coreg) 25 mg PO AC-BID [facility] Last Admin: 11/27/19 17:36 Dose: 25 mg Documented by: Cholecalciferol (Vitamin D3 (25 Mcg = 1000 Iu)) 2,000 unit PO DAILY [facility] Last Admin: 11/27/19 09:24 Dose: 2,000 unit Documented by: Cyanocobalamin (Vitamin B-12) 1,000 mcg PO DAILY [facility] Last Admin: 11/27/19 09:25 Dose: 1,000 mcg Documented by: Furosemide (Lasix) 60 mg IV Q12HR [facility] Last Admin: 11/27/19 09:27 Dose: 60 mg Documented by: Guaifenesin (Mucinex) 1,200 mg PO Q12HR [facility] Last Admin: 11/27/19 09:25 Dose: 1,200 mg Documented by: Sodium Chloride (Saline 0.9%) 1,000 mls @ 20 mls/hr IV .Q24H [facility] Last Admin: 11/27/19 17:35 Dose: 20 mls/hr Documented by: Ceftriaxone Sodium 1 gm/ (Sodium Chloride) 50 mls @ 100 mls/hr IVPB Q24HR [facility] Last Admin: 11/27/19 09:28 Dose: 100 mls/hr Documented by: Insulin Detemir (Levemir) 40 unit SQ [facility] Last Admin: 11/26/19 20:25 Dose: 40 unit Documented by: Insulin Detemir (Levemir) [facility] [place] Last Admin: 11/27/19 09:29 Dose: 10 unit Documented by: Lamotrigine (Lamictal) 100 mg PO [facility] Last Admin: 11/26/19 20:24 Dose: 100 mg Documented by: Melatonin (Melatonin) 3 mg PO [facility] Last Admin: 11/26/19 20:25 Dose: 3 mg Documented by: Metolazone (Zaroxolyn) 5 mg PO DAILY [facility] Last Admin: 11/27/19 12:46 Dose: 5 mg Documented by: Midodrine (Proamatine) 10 mg PO AC-TID [facility] Last Admin: 11/27/19 17:36 Dose: 10 mg Documented by: Ondansetron HCl (Zofran) 4 mg IVP Q6HR PRN PRN Reason: Nausea And Vomiting Last Admin: 11/24/19 16:43 Dose: 4 mg Documented by: Venlafaxine HCl (Effexor) 75 mg PO BID [facility] Last Admin: 11/27/19 09:33 Dose: 75 mg Documented by: On examination: VITAL SIGNS: 97.9, 82, 16, 118/58, 97% on 2 L GENERAL APPEARANCE: Propped up in recliner, not short of breath HEENT: Normal external appearance of nose and ear. Oral cavity normal EYES: Pupils equal. Conjunctiva normal. NECK: JVD raised. Mass not palpable. RESPIRATORY: Respiratory effort increased. Decreased breath sounds. CARDIOVASCULAR: Heart sounds irregular, edema decreased ABDOMEN: Soft. Liver and spleen not palpable. No tenderness. No mass palpable. Bansal catheter-hematuria cleared PSYCHIATRY: Alert and oriented x3. Mood and affect normal. INVESTIGATIONS, reviewed in the clinical context: Bun 77 creatinine 2.23 Previous testing: White count 8.2 hemoglobin 10.6 potassium 5.2 bun 52 creatinine 2.0 troponin I 0.0-3 EKG-possible A. fib Chest x-ray film personally reviewed by me-pulmonary edema cardiomegaly BUN/creatinine on October 07 Assessment: Acute on chronic congestive heart failure exacerbation from systolic dysfunction, EF less than 30% per cardiology, improving -Hypotension multifactorial Ischemic cardiomyopathy Persistent atrial fibrillation on anticoagulation with Eliquis, rate better controlled Acute kidney injury secondary to cardiorenal syndrome, -chronic kidney disease stage III. Mild hyperkalemia secondary to acute kidney injury Lactic acidosis-type II History of nephrectomy due to renal cancer and bladder cancer history Diabetes type 2. Insulin-dependent and also on metformin and glipizide. Hyperlipidemia Coronary artery disease with history of multiple stents placement Bipolar disorder and depression GERD Obesity with BMI 34.9 - Plan: Patient on IV Lasix bolus. Repeat labs in the morning. Encouraged to ambulate. Other meds to continue
[2019-11-27 20:10] LABS: Glucose,Whole Blood 240 mg/dL (75-99)
[2019-11-27] MEDS: ATORVASTATIN 80 MG TAB PO SCH (20:29)
[2019-11-27] MEDS: lamoTRIgine 100 MG TAB PO SCH (20:29)
[2019-11-27] MEDS: MELATONIN 3 MG TABLET PO SCH (20:29)
[2019-11-28 05:53] LABS: Glucose,Whole Blood 237 mg/dL (75-99)
[2019-11-28] MEDS: MIDODRINE 5 MG TAB PO SCH ×3 (06:27→16:48)
[2019-11-28] MEDS: CARVEDILOL 12.5 MG TAB PO SCH ×2 (06:27→16:47)
[2019-11-28 06:39] LABS: Calcium 8.8 mg/dL (8.4-10.2); Magnesium 2.2 mg/dL (1.6-2.3); Potassium 3.2 mmol/L (3.5-5.1)
[2019-11-28] MEDS: guaiFENesin 600 MG TABLET.ER PO SCH ×2 (08:18→21:05)
[2019-11-28] MEDS: AMIODARONE 200 MG TAB PO SCH ×3 (08:18→21:05)
[2019-11-28] MEDS: APIXABAN 2.5 MG TABLET PO SCH ×2 (08:18→21:05)
[2019-11-28] MEDS: CHOLECALCIFEROL 1,000 UNIT TAB PO SCH (08:18)
[2019-11-28] MEDS: CYANOCOBALAMIN 500 MCG TAB PO SCH (08:18)
[2019-11-28] MEDS: INSULIN DETEMIR (LEVEMIR) 100 UNIT/ML SYR SQ SCH ×2 (08:18→21:06)
[2019-11-28] MEDS: ASPIRIN 81 MG PO SCH (08:18)
[2019-11-28] MEDS: METOLAZONE 5 MG TAB PO SCH (08:19)
[2019-11-28] MEDS: VENLAFAXINE HCL 75 MG TAB PO SCH ×2 (08:19→21:44)
[2019-11-28] MEDS ORDERED: POTASSIUM CHLORIDE ER 20 MEQ TAB.ER PO STA (08:56)
--- NOTE | 2019-11-28 08:57 | P.PN ---
Subjective Patient is seen in follow-up for acute kidney injury on chronic kidney disease. He is currently maintained on IV Lasix and metolazone. Urine output over 4 L last 24 hours. Edema slowly improving. Vital signs are stable. General: The patient appeared well nourished and normally developed. HEENT: Head exam is unremarkable. Neck is without jugular venous distension. LUNGS: Lungs are clear to auscultation and percussion. Breath sounds decreased. HEART: Rate and Rhythm are regular. ABDOMEN: Nontender. Nondistended. EXTREMITITES: 2+ edema. Objective - Vital Signs Vital signs: Vital Signs Temp 98 F 11/28/19 04:00 Pulse 60 11/28/19 04:00 Resp 19 11/28/19 04:00 BP 118/60 11/28/19 04:00 Pulse Ox 99 11/28/19 04:00 Intake & Output 11/27/19 11/28/19 11/28/19 18:59 06:59 18:59 Intake Total 125 360 Output Total 1800 4700 Balance -4489 -6400 Weight 116.8 kg 113 kg Intake: Oral 125 360 Output: Urine 1800 4700 Other: Voiding Method Indwelling Catheter Indwelling Catheter - Labs CBC & Chem 7: 11/20/19 06:24 11/28/19 05:59 Labs: Abnormal Lab Results - Last 24 Hours (Table) 11/27/19 11/27/19 11/27/19 Range/Units 11:29 16:33 20:08 Potassium (3.5-5.1) mmol/L Carbon Dioxide (22-30) mmol/L BUN (9-20) mg/dL Creatinine (0.66-1.25) mg/dL Glucose (74-99) mg/dL POC Glucose (mg/dL) 166 H 214 H 240 H (75-99) mg/dL 11/28/19 11/28/19 Range/Units 05:51 05:59 Potassium 3.2 L (3.5-5.1) mmol/L Carbon Dioxide 32 H (22-30) mmol/L BUN 86 H (9-20) mg/dL Creatinine 2.03 H (0.66-1.25) mg/dL Glucose 183 H (74-99) mg/dL POC Glucose (mg/dL) 237 H (75-99) mg/dL Assessment and Plan Plan: Assessment: 1. Acute kidney injury secondary to ATN secondary to cardiorenal syndrome. Renal function stable with creatinine in the range of 2-2.5. 2. Chronic kidney disease stage III with baseline creatinine in the range of 0.9-1.2. 3. Acute on chronic systolic CHF with ejection fraction of 25%. 4. Volume overload. 5. Atrophic right kidney with mass. Patient will follow-up with urology outpatient. 6. Insulin-dependent diabetes mellitus. 7. Hypokalemia secondary to diuresis. Plan: Continue IV Lasix 60 mg twice daily. Maintain metolazone 5 mg once daily. Low-salt diet and 1500 mL fluid restriction. Daily weights. Repeat electrolytes in the morning. Replace potassium. 60 mEq today.
[2019-11-28] MEDS: FUROSEMIDE 10 MG/ML 10 ML VIAL IV SCH ×2 (09:56→21:06)
--- NOTE | 2019-11-28 11:01 | P.PN ---
Subjective Progress Note Date: 11/28/19 This is a pleasant 79-year-old gentleman who follows regularly with Dr. Vargas in the office. He has a known history of coronary artery disease with prior bypass surgery, persistent atrial fibrillation, ischemic cardiomyopathy with prior AICD implant, this was performed in September 2018, h istory of diabetes, hypertension, hyperlipidemia. Patient also has history of kidney and bladder cancer with prior chemo and radiation. Presents to the hospital with at least one week duration of progressively worsening shortness of breath. He states that he also noticed a significant increase in his bilateral lower extremity edema. The patient denies any fever or chills at home. Chest x-ray on presentation here showed congestive cardiac failure. EKG showed atrial fibrillation with a rapid ventricular response. Blood pressure 106/70 with a heart rate of 120, afebrile, 98% on room air. White blood cell count is normal, hemoglobin 9.9, platelet count 236. Sodium 139, potassium 4.6, chloride 106, CO2 20, BUN 54, creatinine 1.8. Plasma lactic acid 2.3 on admission, 1.4 this morning, BNP level 2710. Troponin 0.02, 0.03, 0.03. Patient was initiated on IV Lasix in the emergency room. He has been overall diuresing quite well and his weight is down today. Patient continues to be quite short of breath, continues to have lower extremity edema. The patient is currently on Eliquis 5 mg one tablet by mouth twice a day, he is 79 years of age and his creatinine on admission was 2, we will monitor that creatinine closely, if it remains in the 2 range we will consider decreasing the Eliquis at 2-1/2 mg one tablet by mouth twice a day. We will continue the patient on IV Lasix. We will increase the dose of Coreg, patient is not currently on an TERRANCE inhibitor or an angiotensin scarlet because of the creatinine. 11/21/2019 Patient was seen and examined this morning, he continues to feel significantly short of breath, states he does not notice much improvement from his admission here. Labs are pending. Blood pressure 95/50, heart rate 108. 11/22/2019 Patient seen and examined this morning, states that he feels more short of breath today than he did on arrival here. His urine output is minimal. Continues to be hypotensive. Sodium 135, potassium 4.9, BUN 79, creatinine 2.7. We will start the patient on dobutamine drip at 2.5 g, after 10 minutes we'll increase to 5 mics. Obtain a repeat stat chest x-ray. This was discussed by Dr. Juan Major with nephrology this morning as well. 11/23/2019 Patient seen and examined this morning, sitting up in the chair at bedside. He states he does not feel a lot different than yesterday, maybe mildly better. This is the first day the patient has acknowledged to feeling some mild improvement in his breathing. He diuresed much better through the night last night after being initiated on the dobutamine. Blood pressure 92/40 with a heart rate in the 70s. Laboratory data from today, sodium 139, potassium 4.0, BUN 78, creatinine 2.4. 11/28/2019 Patient seen and examined this morning, still complains of feeling short of breath, but does admit to feeling mildly better overall. He diuresed over 4 L in the past 24 hours. Sodium 139, potassium 3.2, BUN 86, creatinine 2.0. We will continue the patient at this time on IV Lasix. Repeat lytes BUN and creatinine tomorrow. Replace potassium. Objective - Vital Signs Vital signs: Vital Signs Temp 98.1 F 11/28/19 08:00 Pulse 82 11/28/19 08:00 Resp 18 11/28/19 08:00 BP 119/56 11/28/19 08:00 Pulse Ox 97 11/28/19 08:00 Intake & Output 11/27/19 11/28/19 11/28/19 18:59 06:59 18:59 Intake Total 125 360 240 Output Total 1800 4700 Balance -0658 -5220 240 Weight 116.8 kg 113 kg Intake: Oral 125 360 240 Output: Urine 1800 4700 Other: Voiding Method Indwelling Catheter Indwelling Catheter Indwelling Catheter - Exam PHYSICAL EXAMINATION: GENERAL: 79-year-old gentleman in no acute distress at the time of my examination HEENT: Head is atraumatic, normocephalic. Pupils equal, round. Sclera anicteric. Conjunctiva are clear. Mucous membranes of the mouth are moist. Neck is supple. There is elevated jugular venous pressure. No carotid bruit is heard. HEART EXAMINATION: Heart S1-S2 irregularly irregular a systolic murmur is heard CHEST EXAMINATION: Lungs are diminished to the bases bilaterally ABDOMEN: Soft, obese, nontender. Bowel sounds are heard. No organomegaly noted. EXTREMITIES: 2+ peripheral pulses with 2+ evidence of peripheral edema and no calf tenderness noted. NEUROLOGIC patient is awake, alert and oriented 3 . - Labs CBC & Chem 7: 11/20/19 06:24 11/28/19 05:59 Labs: Abnormal Lab Results - Last 24 Hours (Table) 11/27/19 11/27/19 11/27/19 Range/Units 11:29 16:33 20:08 Potassium (3.5-5.1) mmol/L Carbon Dioxide (22-30) mmol/L BUN (9-20) mg/dL Creatinine (0.66-1.25) mg/dL Glucose (74-99) mg/dL POC Glucose (mg/dL) 166 H 214 H 240 H (75-99) mg/dL 11/28/19 11/28/19 Range/Units 05:51 05:59 Potassium 3.2 L (3.5-5.1) mmol/L Carbon Dioxide 32 H (22-30) mmol/L BUN 86 H (9-20) mg/dL Creatinine 2.03 H (0.66-1.25) mg/dL Glucose 183 H (74-99) mg/dL POC Glucose (mg/dL) 237 H (75-99) mg/dL Assessment and Plan Plan: Assessment and plan #1 systolic congestive heart failure acute on chronic #2 coronary artery disease with prior bypass surgery #3 chronic persistent atrial fibrillation #4 hypertension #5 diabetes #6 hyperlipidemia #7 ischemic cardiomyopathy with prior AICD #8 acute on chronic renal insufficiency Plan From cardiology's perspective, we will continue current dose of IV push Lasix. Replace potassium. Check lytes BUN and creatinine in the morning. DNP note has been reviewed, I agree with a documented findings and plan of care. Patient was seen and examined.
--- NOTE | 2019-11-28 11:29 | P.PN ---
Subjective Progress Note Date: 11/28/19 Principal diagnosis: This is an 79-year-old male patient of Dr. Cavanaugh, with known history of severe ischemic cardiomyopathy, and ejection fraction of less than 20%, status post AI CD placement, hypertension, diabetes mellitus, hyperlipidemia, persistent atrial fibrillation, coronary artery disease status post bypass grafting, ex-smoker, chronic congestive heart failure with systolic dysfunction, history of kidney and bladder cancer status post chemo and radiation, who presented to the emergency department on 11/19/2019 with complaints of worsening exertional dyspnea, and increased swelling in his lower extremities. He denied any chest pain, palpitations, no fever or chills, no nausea vomiting, no diaphoresis, no cough or phlegm production. Admission chest x-ray showed creased vascular congestion, and pulmonary edema and a small left pleural effusion. Admission blood work was negative for any leukocytosis, white blood cell count was 8.2, hemoglobin is 10.6, mild lymphopenia, INR is 1.3, potassium is 5.2, the rest of the electrolytes were within normal limits, BUN is 52 creatinine is 2.0, patient does have history of chronic kidney disease stage III, this showed signs of infection although patient denies any symptoms, troponins were 0.031, 0.026, 0.031, proBNP was 2710. We were asked to see the patient in consultation. Patient has been started on infusion of Lasix, early infusing at a rate of 10 mg per hour, and dobutamine drip infusing at 5 mics per kilo per minute. A is on oral Eliquis for history of chronic atrial fibrillation he remains in A. fib with a controlled rate of 93 bpm. He is sitting up in the recliner, in no acute distress, on 4 L of oxygen with a pulse ox of 95-98%, he is been afebrile, he has not diuresed significantly despite the Lasix infusion, and today's blood work shows worsening of his renal profile would be on up to 79 and creatinine is up to 2.7. Nephrology is following. 11/23/2019, the patient was seen and examined at his bedside on the cardiac stepdown unit with Dr. Rivers. He reports he is slightly better today, denies any complaints of pain or shortness of breath just sitting. He is sitting up to the bedside chair and is in no acute distress. Lasix drip at 10 mg per hour and dopamine drip at 2.5 mcg/kg/m continue infusing. He remained hemodynamically stable and currently has oxygen saturations are 96% on 4 L nasal cannula. Repeat chest x-ray was completed this morning which demonstrated cardiomegaly with mild prominence of pulmonary vasculature marking with diffuse increasing lung field markings compatible with congestive heart failure. He has been afebrile the last 24 hours. Lab results today show a BUN 78, creatinine 2.48 and a BNP level 1740. A urine culture was sent yesterday with results pending. On 11/24/2019 the patient was seen and examined with Dr. Rivers. Denies pain, shortness of breath. Sitting up in bed and appears comfortable. Remains afebrile. Hematologically stable. Currently on 4 L nasal cannula with oxygen saturation 97%. Continues on dobutamine at 2.5 mcg and Lasix at 10 mg an hour. Chest x-ray seems to be improving a bit, still has atelectasis present. BUN 84, creatinine 2.37. Urine culture negative. Fluid balance -4 L for the last 48 hours. the patient is seen today 11/25/2019 in follow-up on the selective care unit. He is currently awake and alert in no acute distress. Denies any worsening shortness of breath, cough or congestion. He is still quite edematous especially the lower extremities.he had remained in a negative balance.currently maintaining O2 saturations in the high 90s on 3 L/m per nasal cannula. He is afebrile. Hemodynamically stable.urine culture reveals no growth.sodium 141. Potassium 3.8. Bicarb 23. Creatinine 2.52. He is continued on dobutamine at 2.5 mg/kg/m. Lasix drip at 5 mg per hour. Antibiotics in the form of ceftriaxone. Anticoagulated with Eliquis. The patient is seen today 11/26/2019 in follow-up on the selective care unit. Sitting up in a chair at the bedside. Awake and alert in no acute distress. Breathing a bit easier today compared to yesterday. Maintaining O2 saturations at 99% on 2 L/m per nasal cannula. He's been afebrile. Urine culture revealed no growth. Sodium 141. Potassium 3.8. Creatinine 2.23. Dobutamine has been discontinued. He is on a Lasix drip at 5 mg per hour. Currently in a positive balance. Weight is down 2 kg. Bansal catheter remains in place. Antibiotics in the form of ceftriaxone. Anticoagulated with Eliquis. On 11/27/2019 patient seen in follow-up on selective care unit, he is awake and alert, in no acute distress, sitting up in the recliner, he is currently on 2 L of oxygen, his pulse ox 96%, his been afebrile, hemodynamically patient is stable, he is currently off dobutamine and Lasix drip, his breathing has significantly improved, lower extremity edema improved. Today's chest x-ray showed extensive interstitial and alveolar infiltrates with some improvement. There were also small pleural effusions no new labs today, patient remains on diuretics at 60 mg every 12 hours, nephrology is managing, he remains on Rocephin for possible urinary tract infection, his been afebrile, no urinary symptoms. On 11/28/2019 patient seen in follow-up on selective care unit, he is awake and alert, in no acute distress, sitting up in the recliner. Oxygen saturations are currently 99% on 2 L nasal cannula. He remains hemodynamically stable and is currently in no acute distress. He's been afebrile the last 24 hours. Continues to remain off the dobutamine and Lasix drip and is on 0.9% normal saline at 20 mL per hour. There was no repeat chest x-ray today. The patient reports overall he is feeling better on a daily basis and his edema to his bilateral lower extremity is improving. He remains on Lasix 60 mg IV every 12 hours and Zaroxolyn 5 mg by mouth daily which is being managed by nephrology. He remains on Rocephin for suspected UTI, his urine culture results are negative. He remains on remote telemetry which is showing atrial fibrillation heart rate 70. Objective - Vital Signs Vital signs: Vital Signs Temp 98.1 F 11/28/19 08:00 Pulse 82 11/28/19 08:00 Resp 18 11/28/19 08:00 BP 119/56 11/28/19 08:00 Pulse Ox 97 11/28/19 08:00 Intake & Output 11/27/19 11/28/19 11/28/19 18:59 06:59 18:59 Intake Total 125 360 240 Output Total 1800 4700 Balance -0639 -6098 889 Weight 116.8 kg 113 kg Intake: Oral 125 360 240 Output: Urine 1800 4700 Other: Voiding Method Indwelling Catheter Indwelling Catheter Indwelling Catheter - Constitutional Constitutional Comment(s): This is an 79-year-old gentleman who is sitting up to the bedside chair. He is alert and oriented 3. Oxygen saturations are 99% on 2 L nasal cannula and he is in no acute distress. General appearance: Present: cooperative, no acute distress, obese - EENT Eyes: Present: PERRLA. Absent: scleral icterus - Neck Details: Neck is supple, no JVD. Neck: Absent: lymphadenopathy - Respiratory Details: Lung sounds with few scattered crackles throughout. Respirations are symmetrical and nonlabored. - Cardiovascular Details: Irregular rhythm and controlled rate. S1 and S2 present, negative for S3, gallop or murmur. - Gastrointestinal Gastrointestinal Comment(s): Abdomen is soft, nontender and nondistended. Active bowel sounds present in all 4 abdominal quadrants. No guarding or rigidity. - Integumentary Integumentary Comment(s): Skin is warm and dry. No clubbing or cyanosis is present. Integumentary: Absent: cellulitis, rash - Neurologic Neurologic: Present: CNII-XII intact - Musculoskeletal Musculoskeletal: Present: generalized weakness, strength equal bilaterally - Psychiatric Psychiatric: Present: A&O x's 3, appropriate affect, intact judgment & insight - Allied health notes Allied health notes reviewed: nursing - Labs CBC & Chem 7: 11/20/19 06:24 11/28/19 05:59 Labs: Abnormal Lab Results - Last 24 Hours (Table) 11/27/19 11/27/19 11/27/19 Range/Units 11:29 16:33 20:08 Potassium (3.5-5.1) mmol/L Carbon Dioxide (22-30) mmol/L BUN (9-20) mg/dL Creatinine (0.66-1.25) mg/dL Glucose (74-99) mg/dL POC Glucose (mg/dL) 166 H 214 H 240 H (75-99) mg/dL 11/28/19 11/28/19 Range/Units 05:51 05:59 Potassium 3.2 L (3.5-5.1) mmol/L Carbon Dioxide 32 H (22-30) mmol/L BUN 86 H (9-20) mg/dL Creatinine 2.03 H (0.66-1.25) mg/dL Glucose 183 H (74-99) mg/dL POC Glucose (mg/dL) 237 H (75-99) mg/dL Assessment and Plan Assessment: 1. Acute exacerbation of chronic congestive heart failure with systolic dysfunction 2. Acute kidney injury likely related to cardiorenal syndrome, diuretic therapy, nephrology is following 3. Acute urinary tract infection, placed on ceftriaxone, urine culture negative 4. Ischemic cardiomyopathy, with EF of less than 20%, status post AICD impla ntation 5. Diabetes mellitus 6. History of chronic persistent atrial fibrillation on oral anticoagulation Eliquis 7. History of chronic kidney disease stage III at baseline, history of right hydronephrosis and patient follows with urology 8. Coronary artery disease status post bypass grafting 9. Hypertension 10. Hyperlipidemia 11. History of bladder cancer Plan: 1. The patient was seen and examined at his bedside with Dr. Kingsley. 2. Repeat chest x-ray in a.m. 11/29/19 3. Wean oxygen as tolerated to keep sats greater than or equal to 92%. Currently on 2 L nasal cannula, oxygen saturation is 99% 4. Atrial fibrillation and CHF management per cardiology recommendations. 5. Discontinue Rocephin, urine culture negative. 6. Continue to monitor daily weights. 7. Lasix and Zaroxolyn management per nephrology recommendations. 8. We will continue to follow patient and more recommendations to follow based on patient's clinical course. I, the cosigning physician, performed a history and physical examination on the patient. Lungs few scattered crackles throughout, he is maintaining O2 saturation in the 90s on 2 L nasal cannula. I discussed the plan and assessment of care with Humble Khan NP. I attest that the above note is dictated by him. Time with Patient: Less than 30
[2019-11-28 12:15] LABS: Glucose,Whole Blood 301 mg/dL (75-99)
[2019-11-28] MEDS: SODIUM CHLORIDE 0.9% 1,000 ML IV SCH (16:49)
--- NOTE | 2019-11-28 18:04 | P.PN ---
Progress Note - Text Progress Note Date: 11/28/19 Chief Complaint: Shortness of breath Patient is a 79-year-old patient of Dr. Cavanaugh. history of chronic atrial fibrillation on anticoagulation with Eliquis, coronary artery disease status post bypass graft, cardiomyopathy status post AICD placement, history of nephrec araceli and unilateral kidney, CK D stage III, hypertension, hyperlipidemia, GERD, diabetes type 2 and history of bipolar/depression came to ER with complaints of worsening shortness of breath and exertional dyspnea and bilateral lower extremity increases swelling for the past 2 weeks. Patient does have minimal cough without any sputum production. No sputum production. No complaints of fever or chills. Denied any sick contacts at home. No recent travel. Admitted with CHF exacerbation, atrial fibrillation with a rapid ventricular rate. Started on IV Lasixdrip and IV amiodarone.then IV dobutamine was added. Switch to IV Lasix bolus. Today-. Continues to feel tired. Decreased appetite. Some edema. Breathing is better. On IV Lasix bolus. Appears to walk 40 feet with walker. Review of systems: Was done for constitutional, cardiovascular, GI, pulmonary. relevant finding as above Active Medications Amiodarone HCl (Cordarone) 200 mg PO TID [facility] Last Admin: 11/28/19 16:48 Dose: 200 mg Documented by: Apixaban (Eliquis) 2.5 mg PO BID [facility] Last Admin: 11/28/19 08:18 Dose: 2.5 mg Documented by: Aspirin (Aspirin) 81 mg PO DAILY [facility] Last Admin: 11/28/19 08:18 Dose: 81 mg Documented by: Atorvastatin Calcium (Lipitor) 80 mg PO HS [facility] Last Admin: 11/27/19 20:29 Dose: 80 mg Documented by: Carvedilol (Coreg) 25 mg PO AC-BID [facility] Last Admin: 11/28/19 16:47 Dose: 25 mg Documented by: Cholecalciferol (Vitamin D3 (25 Mcg = 1000 Iu)) 2,000 unit PO DAILY [facility] Last Admin: 11/28/19 08:18 Dose: 2,000 unit Documented by: Cyanocobalamin (Vitamin B-12) 1,000 mcg PO DAILY [facility] Last Admin: 11/28/19 08:18 Dose: 1,000 mcg Documented by: Furosemide (Lasix) 60 mg IV Q12HR [facility] Last Admin: 11/28/19 09:56 Dose: 60 mg Documented by: Guaifenesin (Mucinex) 1,200 mg PO Q12HR [facility] Last Admin: 11/28/19 08:18 Dose: 1,200 mg Documented by: Sodium Chloride (Saline 0.9%) 1,000 mls @ 20 mls/hr IV .Q24H [facility] Last Admin: 11/28/19 16:49 Dose: 20 mls/hr Documented by: Insulin Detemir (Levemir) 40 unit SQ HS [facility] Last Admin: 11/27/19 21:40 Dose: 40 unit Documented by: Insulin Detemir (Levemir) 10 unit SQ QAM [facility] Last Admin: 11/28/19 08:18 Dose: 10 unit Documented by: Lamotrigine (Lamictal) 100 mg PO [facility] Last Admin: 11/27/19 20:29 Dose: 100 mg Documented by: Melatonin (Melatonin) 3 mg PO [facility] Last Admin: 11/27/19 20:29 Dose: 3 mg Documented by: Metolazone (Zaroxolyn) 5 mg PO DAILY [facility] Last Admin: 11/28/19 08:19 Dose: 5 mg Documented by: Midodrine (Proamatine) 10 mg PO AC-TID [facility] Last Admin: 11/28/19 16:48 Dose: 10 mg Documented by: Ondansetron HCl (Zofran) 4 mg IVP Q6HR PRN PRN Reason: Nausea And Vomiting Last Admin: 11/24/19 16:43 Dose: 4 mg Documented by: Venlafaxine HCl (Effexor) 75 mg PO BID [facility] Last Admin: 11/28/19 08:19 Dose: 75 mg Documented by: On examination: VITAL SIGNS: 98, 91, 18, 129/62, 99% on 2 L GENERAL APPEARANCE: up in recliner, tired HEENT: Normal external appearance of nose and ear. Oral cavity normal EYES: Pupils equal. Conjunctiva normal. NECK: JVD raised. Mass not palpable. RESPIRATORY: Respiratory effort increased. Decreased breath sounds. CARDIOVASCULAR: Heart sounds irregular, edema decreased ABDOMEN: Soft. Liver and spleen not palpable. No tenderness. No mass palpable. Bansal catheter-hematuria cleared PSYCHIATRY: Alert and oriented x3. Mood and affect tired INVESTIGATIONS, reviewed in the clinical context: Bun 86 creatinine 2.03 Previous testing: White count 8.2 hemoglobin 10.6 potassium 5.2 bun 52 creatinine 2.0 troponin I 0.0-3 EKG-possible A. fib Chest x-ray film personally reviewed by me-pulmonary edema cardiomegaly BUN/creatinine on October 07 Assessment: Acute on chronic congestive heart failure exacerbation from systolic dysfunction, EF less than 30% per cardiology, on IV Lasix bolus -Hypotension multifactorial Ischemic cardiomyopathy Persistent atrial fibrillation on anticoagulation with Eliquis, rate better controlled Acute kidney injury secondary to cardiorenal syndrome, -chronic kidney disease stage III. Mild hyperkalemia secondary to acute kidney injury Lactic acidosis-type II History of nephrectomy due to renal cancer and bladder cancer history Diabetes type 2. Insulin-dependent and also on metformin and glipizide. Hyperlipidemia Coronary artery disease with history of multiple stents placement Bipolar disorder and depression GERD Obesity with BMI 34.9 - Plan: Continue on IV Lasix bolus. Follow labs. Encouraged to ambulate. Other meds to continue
[2019-11-28 20:37] LABS: Glucose,Whole Blood 262 mg/dL (75-99)
[2019-11-28] MEDS: MELATONIN 3 MG TABLET PO SCH (21:05)
[2019-11-28] MEDS: ATORVASTATIN 80 MG TAB PO SCH (21:05)
[2019-11-28] MEDS: lamoTRIgine 100 MG TAB PO SCH (21:05)
[2019-11-29 06:06] LABS: Glucose,Whole Blood 244 mg/dL (75-99)
[2019-11-29 06:20] LABS: Calcium 9.3 mg/dL (8.4-10.2); Magnesium 2.1 mg/dL (1.6-2.3); Potassium 3.6 mmol/L (3.5-5.1)
[2019-11-29] MEDS: CARVEDILOL 12.5 MG TAB PO SCH ×3 (07:00→16:27)
[2019-11-29] MEDS: MIDODRINE 5 MG TAB PO SCH ×3 (07:00→16:29)
[2019-11-29 10:30] LABS: Glucose,Whole Blood 249 mg/dL (75-99)
[2019-11-29] MEDS: FUROSEMIDE 10 MG/ML 10 ML VIAL IV SCH (11:06)
[2019-11-29] MEDS: METOLAZONE 5 MG TAB PO SCH (11:07)
[2019-11-29] MEDS: ASPIRIN 81 MG PO SCH (11:11)
[2019-11-29] MEDS: CHOLECALCIFEROL 1,000 UNIT TAB PO SCH (11:11)
[2019-11-29] MEDS: guaiFENesin 600 MG TABLET.ER PO SCH ×2 (11:11→20:33)
[2019-11-29] MEDS: AMIODARONE 200 MG TAB PO SCH (11:11)
[2019-11-29] MEDS: APIXABAN 2.5 MG TABLET PO SCH ×2 (11:11→20:31)
[2019-11-29] MEDS: CYANOCOBALAMIN 500 MCG TAB PO SCH (11:11)
[2019-11-29] MEDS: INSULIN DETEMIR (LEVEMIR) 100 UNIT/ML SYR SQ SCH ×2 (11:12→20:35)
[2019-11-29] MEDS: VENLAFAXINE HCL 75 MG TAB PO SCH ×2 (11:12→20:36)
--- NOTE | 2019-11-29 11:27 | P.PN ---
Subjective Progress Note Date: 11/29/19 This is a pleasant 79-year-old gentleman who follows regularly with Dr. Vargas in the office. He has a known history of coronary artery disease with prior bypass surgery, persistent atrial fibrillation, ischemic cardiomyopathy with prior AICD implant, this was performed in September 2018, h istory of diabetes, hypertension, hyperlipidemia. Patient also has history of kidney and bladder cancer with prior chemo and radiation. Presents to the hospital with at least one week duration of progressively worsening shortness of breath. He states that he also noticed a significant increase in his bilateral lower extremity edema. The patient denies any fever or chills at home. Chest x-ray on presentation here showed congestive cardiac failure. EKG showed atrial fibrillation with a rapid ventricular response. Blood pressure 106/70 with a heart rate of 120, afebrile, 98% on room air. White blood cell count is normal, hemoglobin 9.9, platelet count 236. Sodium 139, potassium 4.6, chloride 106, CO2 20, BUN 54, creatinine 1.8. Plasma lactic acid 2.3 on admission, 1.4 this morning, BNP level 2710. Troponin 0.02, 0.03, 0.03. Patient was initiated on IV Lasix in the emergency room. He has been overall diuresing quite well and his weight is down today. Patient continues to be quite short of breath, continues to have lower extremity edema. The patient is currently on Eliquis 5 mg one tablet by mouth twice a day, he is 79 years of age and his creatinine on admission was 2, we will monitor that creatinine closely, if it remains in the 2 range we will consider decreasing the Eliquis at 2-1/2 mg one tablet by mouth twice a day. We will continue the patient on IV Lasix. We will increase the dose of Coreg, patient is not currently on an TERRANCE inhibitor or an angiotensin scarlet because of the creatinine. 11/21/2019 Patient was seen and examined this morning, he continues to feel significantly short of breath, states he does not notice much improvement from his admission here. Labs are pending. Blood pressure 95/50, heart rate 108. 11/22/2019 Patient seen and examined this morning, states that he feels more short of breath today than he did on arrival here. His urine output is minimal. Continues to be hypotensive. Sodium 135, potassium 4.9, BUN 79, creatinine 2.7. We will start the patient on dobutamine drip at 2.5 g, after 10 minutes we'll increase to 5 mics. Obtain a repeat stat chest x-ray. This was discussed by Dr. Juan Major with nephrology this morning as well. 11/23/2019 Patient seen and examined this morning, sitting up in the chair at bedside. He states he does not feel a lot different than yesterday, maybe mildly better. This is the first day the patient has acknowledged to feeling some mild improvement in his breathing. He diuresed much better through the night last night after being initiated on the dobutamine. Blood pressure 92/40 with a heart rate in the 70s. Laboratory data from today, sodium 139, potassium 4.0, BUN 78, creatinine 2.4. 11/28/2019 Patient seen and examined this morning, still complains of feeling short of breath, but does admit to feeling mildly better overall. He diuresed over 4 L in the past 24 hours. Sodium 139, potassium 3.2, BUN 86, creatinine 2.0. We will continue the patient at this time on IV Lasix. Repeat lytes BUN and creatinine tomorrow. Replace potassium. 11/29/2019 Patient seen and examined this morning sitting up in his chair at bedside. Overall he does state that his breathing is improving every day. Blood pressure 104/50 with a heart rate in the 70s. He continued to diurese well through the night last night. Laboratory data from today, sodium 138, potassium 3.6, BUN 109 and creatinine 1.7 Objective - Vital Signs Vital signs: Vital Signs Temp 97.6 F 11/29/19 11:19 Pulse 76 11/29/19 11:19 Resp 16 11/29/19 11:19 BP 81/49 11/29/19 11:19 Pulse Ox 99 11/29/19 11:19 Intake & Output 11/28/19 11/29/19 11/29/19 18:59 06:59 18:59 Intake Total 240 Output Total 901 2001 Balance - Weight 114.2 kg Intake: Oral 240 Output: Urine 900 2000 Stool 1 2 Other: Voiding Method Indwelling Catheter Indwelling Catheter - Exam PHYSICAL EXAMINATION: GENERAL: 79-year-old gentleman in no acute distress at the time of my examination HEENT: Head is atraumatic, normocephalic. Pupils equal, round. Sclera anicteric. Conjunctiva are clear. Mucous membranes of the mouth are moist. Neck is supple. There is elevated jugular venous pressure. No carotid bruit is heard. HEART EXAMINATION: Heart S1-S2 irregularly irregular a systolic murmur is heard CHEST EXAMINATION: Lungs show improvement in air entry bilaterally ABDOMEN: Soft, obese, nontender. Bowel sounds are heard. No organomegaly noted. EXTREMITIES: 2+ peripheral pulses with trace - 1+ evidence of peripheral edema and no calf tenderness noted. NEUROLOGIC patient is awake, alert and oriented 3 . - Labs CBC & Chem 7: 11/20/19 06:24 11/29/19 05:31 Labs: Abnormal Lab Results - Last 24 Hours (Table) 11/28/19 11/28/19 11/29/19 Range/Units 12:11 20:35 05:31 BUN 109 H* (9-20) mg/dL Creatinine 1.78 H (0.66-1.25) mg/dL Glucose 226 H (74-99) mg/dL POC Glucose (mg/dL) 301 H 262 H (75-99) mg/dL 11/29/19 11/29/19 Range/Units 06:04 10:28 BUN (9-20) mg/dL Creatinine (0.66-1.25) mg/dL Glucose (74-99) mg/dL POC Glucose (mg/dL) 244 H 249 H (75-99) mg/dL Assessment and Plan Plan: Assessment and plan #1 systolic congestive heart failure acute on chronic #2 coronary artery disease with prior bypass surgery #3 chronic persistent atrial fibrillation #4 hypertension #5 diabetes #6 hyperlipidemia #7 ischemic cardiomyopathy with prior AICD #8 acute on chronic renal insufficiency Plan From cardiology's perspective, we will recommend to discontinue the IV Lasix, put the patient on 40 mg of by mouth Lasix twice a day, decrease his Zaroxolyn to 2-1/2 mg daily, obtain consult with physical therapy. We will check her lyte s BUN and creatinine in the morning. DNP note has been reviewed, I agree with a documented findings and plan of care. Patient was seen and examined.
[2019-11-29] MEDS ORDERED: SODIUM CHLORIDE 0.9% 1,000 ML IV SCH ×3 (11:30→22:30)
[2019-11-29 11:31] LABS: Glucose,Whole Blood 274 mg/dL (75-99)
[2019-11-29] MEDS ORDERED: POTASSIUM CHLORIDE ER 20 MEQ TAB.ER PO STA (11:57)
--- NOTE | 2019-11-29 11:59 | P.PN ---
Subjective Patient is seen in follow-up for acute kidney injury on chronic kidney disease. He is currently maintained on IV Lasix and metolazone. Urine output is good. Edema gradually improving. Vital signs are stable. General: The patient appeared well nourished and normally developed. HEENT: Head exam is unremarkable. Neck is without jugular venous distension. LUNGS: Lungs are clear to auscultation and percussion. Breath sounds decreased. HEART: Rate and Rhythm are regular. ABDOMEN: Nontender. Nondistended. EXTREMITITES: 2+ edema. Objective - Vital Signs Vital signs: Vital Signs Temp 97.6 F 11/29/19 11:19 Pulse 76 11/29/19 11:19 Resp 16 11/29/19 11:46 BP 81/49 11/29/19 11:19 Pulse Ox 99 11/29/19 11:19 Intake & Output 11/28/19 11/29/19 11/29/19 18:59 06:59 18:59 Intake Total 240 Output Total 901 2001 - Weight 114.2 kg Intake: Oral 240 Output: Urine 900 2000 Stool 1 2 Other: Voiding Method Indwelling Catheter Indwelling Catheter Indwelling Catheter - Labs CBC & Chem 7: 11/20/19 06:24 11/29/19 05:31 Labs: Abnormal Lab Results - Last 24 Hours (Table) 11/28/19 11/28/19 11/29/19 Range/Units 12:11 20:35 05:31 BUN 109 H* (9-20) mg/dL Creatinine 1.78 H (0.66-1.25) mg/dL Glucose 226 H (74-99) mg/dL POC Glucose (mg/dL) 301 H 262 H (75-99) mg/dL 11/29/19 11/29/19 11/29/19 Range/Units 06:04 10:28 11:28 BUN (9-20) mg/dL Creatinine (0.66-1.25) mg/dL Glucose (74-99) mg/dL POC Glucose (mg/dL) 244 H 249 H 274 H (75-99) mg/dL Assessment and Plan Plan: Assessment: 1. Acute kidney injury secondary to ATN secondary to cardiorenal syndrome. Renal function improving. Creatinine 1.78 today. 2. Chronic kidney disease stage III with baseline creatinine in the range of 0.9-1.2. 3. Acute on chronic systolic CHF with ejection fraction of 25%. 4. Volume overload. improving with diuresis. 5. Atrophic right kidney with mass. Patient will follow-up with urology outpatient. 6. Insulin-dependent diabetes mellitus. 7. Hypokalemia secondary to diuresis. better posterior placement. Magnesium normal. Plan: Lasix changed to 40 mg orally twice daily starting today. Maintain metolazone. Low-salt diet and 1500 mL fluid restriction. Daily weights. Repeat electrolytes in the morning. Replace potassium. 40 mEq today. I will also had maintenance potassium supplementation.
[2019-11-29] MEDS: INSULIN ASPART (NovoLOG) 100 UNIT/ML VIAL SQ SCH ×3 (13:28→20:35)
--- NOTE | 2019-11-29 14:14 | P.PN ---
Subjective Progress Note Date: 11/29/19 Principal diagnosis: This is an 79-year-old male patient of Dr. Cavanaugh, with known history of severe ischemic cardiomyopathy, and ejection fraction of less than 20%, status post AI CD placement, hypertension, diabetes mellitus, hyperlipidemia, persistent atrial fibrillation, coronary artery disease status post bypass grafting, ex-smoker, chronic congestive heart failure with systolic dysfunction, history of kidney and bladder cancer status post chemo and radiation, who presented to the emergency department on 11/19/2019 with complaints of worsening exertional dyspnea, and increased swelling in his lower extremities. He denied any chest pain, palpitations, no fever or chills, no nausea vomiting, no diaphoresis, no cough or phlegm production. Admission chest x-ray showed creased vascular congestion, and pulmonary edema and a small left pleural effusion. Admission blood work was negative for any leukocytosis, white blood cell count was 8.2, hemoglobin is 10.6, mild lymphopenia, INR is 1.3, potassium is 5.2, the rest of the electrolytes were within normal limits, BUN is 52 creatinine is 2.0, patient does have history of chronic kidney disease stage III, this showed signs of infection although patient denies any symptoms, troponins were 0.031, 0.026, 0.031, proBNP was 2710. We were asked to see the patient in consultation. Patient has been started on infusion of Lasix, early infusing at a rate of 10 mg per hour, and dobutamine drip infusing at 5 mics per kilo per minute. A is on oral Eliquis for history of chronic atrial fibrillation he remains in A. fib with a controlled rate of 93 bpm. He is sitting up in the recliner, in no acute distress, on 4 L of oxygen with a pulse ox of 95-98%, he is been afebrile, he has not diuresed significantly despite the Lasix infusion, and today's blood work shows worsening of his renal profile would be on up to 79 and creatinine is up to 2.7. Nephrology is following. 11/23/2019, the patient was seen and examined at his bedside on the cardiac stepdown unit with Dr. Rivers. He reports he is slightly better today, denies any complaints of pain or shortness of breath just sitting. He is sitting up to the bedside chair and is in no acute distress. Lasix drip at 10 mg per hour and dopamine drip at 2.5 mcg/kg/m continue infusing. He remained hemodynamically stable and currently has oxygen saturations are 96% on 4 L nasal cannula. Repeat chest x-ray was completed this morning which demonstrated cardiomegaly with mild prominence of pulmonary vasculature marking with diffuse increasing lung field markings compatible with congestive heart failure. He has been afebrile the last 24 hours. Lab results today show a BUN 78, creatinine 2.48 and a BNP level 1740. A urine culture was sent yesterday with results pending. On 11/24/2019 the patient was seen and examined with Dr. Rivers. Denies pain, shortness of breath. Sitting up in bed and appears comfortable. Remains afebrile. Hematologically stable. Currently on 4 L nasal cannula with oxygen saturation 97%. Continues on dobutamine at 2.5 mcg and Lasix at 10 mg an hour. Chest x-ray seems to be improving a bit, still has atelectasis present. BUN 84, creatinine 2.37. Urine culture negative. Fluid balance -4 L for the last 48 hours. the patient is seen today 11/25/2019 in follow-up on the selective care unit. He is currently awake and alert in no acute distress. Denies any worsening shortness of breath, cough or congestion. He is still quite edematous especially the lower extremities.he had remained in a negative balance.currently maintaining O2 saturations in the high 90s on 3 L/m per nasal cannula. He is afebrile. Hemodynamically stable.urine culture reveals no growth.sodium 141. Potassium 3.8. Bicarb 23. Creatinine 2.52. He is continued on dobutamine at 2.5 mg/kg/m. Lasix drip at 5 mg per hour. Antibiotics in the form of ceftriaxone. Anticoagulated with Eliquis. The patient is seen today 11/26/2019 in follow-up on the selective care unit. Sitting up in a chair at the bedside. Awake and alert in no acute distress. Breathing a bit easier today compared to yesterday. Maintaining O2 saturations at 99% on 2 L/m per nasal cannula. He's been afebrile. Urine culture revealed no growth. Sodium 141. Potassium 3.8. Creatinine 2.23. Dobutamine has been discontinued. He is on a Lasix drip at 5 mg per hour. Currently in a positive balance. Weight is down 2 kg. Bansal catheter remains in place. Antibiotics in the form of ceftriaxone. Anticoagulated with Eliquis. On 11/27/2019 patient seen in follow-up on selective care unit, he is awake and alert, in no acute distress, sitting up in the recliner, he is currently on 2 L of oxygen, his pulse ox 96%, his been afebrile, hemodynamically patient is stable, he is currently off dobutamine and Lasix drip, his breathing has significantly improved, lower extremity edema improved. Today's chest x-ray showed extensive interstitial and alveolar infiltrates with some improvement. There were also small pleural effusions no new labs today, patient remains on diuretics at 60 mg every 12 hours, nephrology is managing, he remains on Rocephin for possible urinary tract infection, his been afebrile, no urinary symptoms. On 11/28/2019 patient seen in follow-up on [facility] care unit, he is awake and alert, in no acute distress, sitting up in the recliner. Oxygen saturations are currently 99% on 2 L nasal cannula. He remains hemodynamically stable and is currently in no acute distress. He's been afebrile the last 24 hours. Continues to remain off the dobutamine and Lasix drip and is on 0.9% normal saline at 20 mL per hour. There was no repeat chest x-ray today. The patient reports overall he is feeling better on a daily basis and his edema to his bilateral lower extremity is improving. He remains on Lasix 60 mg IV every 12 hours and Zaroxolyn 5 mg by mouth daily which is being managed by nephrology. He remains on Rocephin for suspected UTI, his urine culture results are negative. He remains on remote telemetry which is showing atrial fibrillation heart rate 70. On 11/28/2019 patient seen in follow-up on [facility] care unit, he is awake and alert, in no acute distress, sitting up in the recliner with his feet elevated. The patient reports he is feeling improved each day. Denies any complaints of shortness of breath sitting there and the chair. Oxygen saturations are 98% on 2 L nasal cannula. 0.9% normal saline was infusing at 20 mL per hour. He did not have a repeat chest x-ray today. He remains hemodynamically stable and has been afebrile the last 24 hours. He continues to receive Lasix 40 mg by mouth twice a day and Zaroxolyn 2.5 mg by mouth daily which is being managed by nephrology and cardiology. Lab results today show a BUN 109, creatinine 1.78. His antibiotics were discontinued yesterday as his urine culture results were negative. He remains on remote telemetry which is showing atrial fibrillation heart rate 90. Objective - Vital Signs Vital signs: Vital Signs Temp 97.6 F 11/29/19 11:19 Pulse 76 11/29/19 11:19 Resp 16 11/29/19 11:46 BP 81/49 11/29/19 11:19 Pulse Ox 99 11/29/19 11:19 Intake & Output 11/28/19 11/29/19 11/29/19 18:59 06:59 18:59 Intake Total 240 Output Total 901 2001 Balance -661 -2001 Weight 114.2 kg Intake: Oral 240 Output: Urine 900 2000 Stool 1 2 Other: Voiding Method Indwelling Catheter Indwelling Catheter Indwelling Catheter - Exam This is an 79-year-old gentleman who is sitting up to the bedside chair. He is alert and oriented 3. Oxygen saturations are 98% on 2 L nasal cannula and he is in no acute distress. - Constitutional General appearance: Present: cooperative, no acute distress, obese - EENT Eyes: Present: PERRLA. Absent: scleral icterus ENT: Present: hearing grossly normal, normal oropharynx - Neck Details: Neck is supple, no JVD. Neck: Absent: lymphadenopathy - Respiratory Details: Lung sounds with few scattered crackles throughout. Respirations are symmetrical and nonlabored. - Cardiovascular Details: Irregular rhythm and controlled rate. S1 and S2 present, negative for S3, gallop or murmur. - Gastrointestinal Gastrointestinal Comment(s): Abdomen is soft, nontender and nondistended. Active bowel sounds present in all 4 abdominal quadrants. No guarding or rigidity. General gastrointestinal: Absent: organomegaly - Integumentary Integumentary Comment(s): Skin is warm and dry. No clubbing or cyanosis is present. +1 to +2 edema to his bilateral lower extremities. Integumentary: Absent: rash - Neurologic Neurologic: Present: CNII-XII intact - Musculoskeletal Musculoskeletal: Present: generalized weakness, strength equal bilaterally - Psychiatric Psychiatric: Present: A&O x's 3, appropriate affect, intact judgment & insight - Allied health notes Allied health notes reviewed: nursing - Labs CBC & Chem 7: 11/20/19 06:24 11/29/19 05:31 Labs: Abnormal Lab Results - Last 24 Hours (Table) 11/28/19 11/29/19 11/29/19 Range/Units 20:35 05:31 06:04 BUN 109 H* (9-20) mg/dL Creatinine 1.78 H (0.66-1.25) mg/dL Glucose 226 H (74-99) mg/dL POC Glucose (mg/dL) 262 H 244 H (75-99) mg/dL 11/29/19 11/29/19 Range/Units 10:28 11:28 BUN (9-20) mg/dL Creatinine (0.66-1.25) mg/dL Glucose (74-99) mg/dL POC Glucose (mg/dL) 249 H 274 H (75-99) mg/dL Assessment and Plan Assessment: 1. Acute exacerbation of chronic congestive heart failure with systolic dysfunction 2. Acute kidney injury likely related to cardiorenal syndrome, diuretic therapy, nephrology is following 3. Acute urinary tract infection, placed on ceftriaxone, urine culture negative 4. Ischemic cardiomyopathy, with EF of less than 20%, status post AICD impl antation 5. Diabetes mellitus 6. History of chronic persistent atrial fibrillation on oral anticoagulation Eliquis 7. History of chronic kidney disease stage III at baseline, history of right hy dronephrosis and patient follows with urology 8. Coronary artery disease status post bypass grafting 9. Hypertension 10. Hyperlipidemia 11. History of bladder cancer Plan: 1. The patient was seen and examined at his bedside with Dr. Kingsley. 2. Repeat chest x-ray in a.m. 11/30/19. 3. Wean oxygen as tolerated to keep sats greater than or equal to 92%. Currently on 2 L nasal cannula, oxygen saturation is 98% 4. Atrial fibrillation and CHF management per cardiology recommendations. 5. Continue to monitor daily weights. 6. Lasix and Zaroxolyn management per nephrology recommendations. 7. We will continue to follow patient and more recommendations to follow based on patient's clinical course. I, the cosigning physician, performed a history and physical examination on the patient. Lungs few scattered crackles throughout, he is maintaining O2 saturation in the 90s on 2 L nasal cannula. I discussed the plan and assessment of care with Humble Khan CAD CAM PROGRAMMER. I attest that the above note is dictated by him. Time with Patient: Less than 30
[2019-11-29] MEDS ORDERED: SODIUM CHLORIDE 0.9% 500 ML 250 ML IV ONE (15:40)
[2019-11-29] MEDS ORDERED: FUROSEMIDE 40 MG TAB PO SCH (16:00)
[2019-11-29 16:17] LABS: Glucose,Whole Blood 291 mg/dL (75-99)
--- NOTE | 2019-11-29 17:41 | P.PN ---
Progress Note - Text Progress Note Date: 11/29/19 Chief Complaint: Shortness of breath Patient is a 79-year-old patient of Dr. Cavanaugh. history of chronic atrial fibrillation on anticoagulation with Eliquis, coronary artery disease status post bypass graft, cardiomyopathy status post AICD placement, history of nephrec araceli and unilateral kidney, CK D stage III, hypertension, hyperlipidemia, GERD, diabetes type 2 and history of bipolar/depression came to ER with complaints of worsening shortness of breath and exertional dyspnea and bilateral lower extremity increases swelling for the past 2 weeks. Patient does have minimal cough without any sputum production. No sputum production. No complaints of fever or chills. Denied any sick contacts at home. No recent travel. Admitted with CHF exacerbation, atrial fibrillation with a rapid ventricular rate. Started on IV Lasixdrip and IV amiodarone.then IV dobutamine was added. Switch to IV Lasix bolus. Today-. Changed by cardiology from IV Lasix to by mouth Lasix. Tired. Blood pressure in 80 systolic by standing. Review of systems: Was done for constitutional, cardiovascular, GI, pulmonary. relevant finding as above Active Medications Amiodarone HCl (Cordarone) 200 mg PO DAILY [facility] Apixaban (Eliquis) 2.5 mg PO BID [facility] Last Admin: 11/29/19 11:11 Dose: 2.5 mg Documented by: Aspirin (Aspirin) 81 mg PO DAILY [facility] Last Admin: 11/29/19 11:11 Dose: 81 mg Documented by: Atorvastatin Calcium (Lipitor) 80 mg PO HS [facility] Last Admin: 11/28/19 21:05 Dose: 80 mg Documented by: Carvedilol (Coreg) 12.5 mg PO BID-W/MEALS [facility] Last Admin: 11/29/19 16:27 Dose: Not Given Documented by: Cholecalciferol (Vitamin D3 (25 Mcg = 1000 Iu)) 2,000 unit PO DAILY [facility] Last Admin: 11/29/19 11:11 Dose: 2,000 unit Documented by: Cyanocobalamin (Vitamin B-12) 1,000 mcg PO DAILY [facility] Last Admin: 11/29/19 11:11 Dose: 1,000 mcg Documented by: Furosemide (Lasix) 40 mg PO BID@0900,1600 [facility] Last Admin: 11/29/19 15:45 Dose: Not Given Documented by: Guaifenesin (Mucinex) 1,200 mg PO Q12HR [facility] Last Admin: 11/29/19 11:11 Dose: 1,200 mg Documented by: Sodium Chloride (Saline 0.9%) 1,000 mls @ 75 mls/hr IV .[id number] [facility] Stop: 11/29/19 22:30 Last Admin: 11/29/19 11:19 Dose: 75 mls/hr Documented by: Sodium Chloride (Saline 0.9%) 1,000 mls @ 100 mls/hr IV .Q10H [facility] Stop: 11/29/19 22:30 Last Admin: 11/29/19 16:25 Dose: 100 mls/hr Documented by: Sodium Chloride (Saline 0.9%) 1,000 mls @ 50 mls/hr IV .Q20H [facility] Insulin Aspart (Novolog) 0 unit SQ [facility]; Protocol Last Admin: 11/29/19 16:29 Dose: 7 unit Documented by: Insulin Detemir (Levemir) 40 unit SQ [facility] Last Admin: 11/28/19 21:06 Dose: 40 unit Documented by: Insulin Detemir (Levemir) 10 [facility] Last Admin: 11/29/19 11:12 Dose: 10 unit Documented by: Lamotrigine (Lamictal) 100 mg PO [facility] Last Admin: 11/28/19 21:05 Dose: 100 mg Documented by: Melatonin (Melatonin) 3 mg PO [facility] Last Admin: 11/28/19 21:05 Dose: 3 mg Documented by: Metolazone (Zaroxolyn) 2.5 mg PO DAILY [facility] Midodrine (Proamatine) 10 mg PO AC-TID [facility] Last Admin: 11/29/19 16:29 Dose: 10 mg Documented by: Ondansetron HCl (Zofran) 4 mg IVP Q6HR PRN PRN Reason: Nausea And Vomiting Last Admin: 11/24/19 16:43 Dose: 4 mg Documented by: Potassium Chloride (K-Dur 20) 20 meq PO DAILY [facility] Venlafaxine HCl (Effexor) 75 mg PO BID [facility] Last Admin: 11/29/19 11:12 Dose: 75 mg Documented by: On examination: VITAL SIGNS: 97.6, 76, 16, 81/49, 99% on room air GENERAL APPEARANCE: up in recliner, tired HEENT: Normal external appearance of nose and ear. Oral cavity normal EYES: Pupils equal. Conjunctiva normal. NECK: JVD raised. Mass not palpable. RESPIRATORY: Respiratory effort increased. Decreased breath sounds. CARDIOVASCULAR: Heart sounds irregular, edema decreased ABDOMEN: Soft. Liver and spleen not palpable. No tenderness. No mass palpable. Bansal catheter-hematuria cleared PSYCHIATRY: Alert and oriented x3. Mood and affect tired INVESTIGATIONS, reviewed in the clinical context: [id number], creatinine 1.78 Previous testing: White count 8.2 hemoglobin 10.6 potassium 5.2 bun 52 creatinine 2.0 troponin I 0.0-3 EKG-possible A. fib Chest x-ray film personally reviewed by me-pulmonary edema cardiomegaly BUN/creatinine on October 07 Assessment: Acute on chronic congestive heart failure exacerbation from systolic dysfunction, EF less than 30% per cardiology, improved -Hypotension multifactorial Ischemic cardiomyopathy Persistent atrial fibrillation on anticoagulation with Eliquis, rate better controlled Acute kidney injury secondary to cardiorenal syndrome, -chronic kidney disease stage III. Mild hyperkalemia secondary to acute kidney injury Lactic acidosis-type II History of nephrectomy due to renal cancer and bladder cancer history Diabetes type 2. Insulin-dependent and also on metformin and glipizide. Hyperlipidemia Coronary artery disease with history of multiple stents placement Bipolar disorder and depression GERD Obesity with BMI 34.9 - Plan: Continue patient switched over to oral diuretic. Was dizzy on standing. Cardiology did order some IV fluids. Hold all diuretics for 24 hours. Hopefully discharge to ECF tomorrow.
[2019-11-29 20:13] LABS: Glucose,Whole Blood 294 mg/dL (75-99)
[2019-11-29] MEDS: ATORVASTATIN 80 MG TAB PO SCH (20:32)
[2019-11-29] MEDS: lamoTRIgine 100 MG TAB PO SCH (20:36)
[2019-11-29] MEDS: MELATONIN 3 MG TABLET PO SCH (20:36)
[2019-11-30 06:10] LABS: Glucose,Whole Blood 210 mg/dL (75-99)
[2019-11-30] MEDS: MIDODRINE 5 MG TAB PO SCH ×3 (07:04→17:09)
[2019-11-30] MEDS: CARVEDILOL 12.5 MG TAB PO SCH (07:04)
[2019-11-30] MEDS: INSULIN ASPART (NovoLOG) 100 UNIT/ML VIAL SQ SCH ×4 (07:04→21:15)
--- NOTE | 2019-11-30 07:26 | XR ---
EXAMINATION TYPE: XR chest 1V portable DATE OF EXAM: 11/30/2019 HISTORY: Shortness of breath. COMPARISON: 11/27/2019 TECHNIQUE: Single view of the chest is submitted. FINDINGS: Demonstrated are scattered senescent parenchymal change. Scattered interstitial and alveolar infiltrates appear essentially unchanged. The heart is stable. Hilar and mediastinal structures are within normal limits. Degenerative changes are seen of the dorsal spine. IMPRESSION: 1. Stable Chest.
[2019-11-30 07:46] LABS: Calcium 8.6 mg/dL (8.4-10.2); Potassium 3.5 mmol/L (3.5-5.1)
[2019-11-30] MEDS ORDERED: SODIUM CHLORIDE 0.9% 500 ML 250 ML IV ONE ×2 (08:16→08:36)
[2019-11-30 08:41] LABS: Anisocytosis Slight; Hypochromasia Marked; MCH 22.9 pg (25.0-35.0); MCHC 29.3 g/dL (31.0-37.0); MCV 78.2 fL (80.0-100.0); Mean Platelet Volume 7.6; Microcytosis Slight; Platelet Count 241 k/uL (150-450); Poikilocytosis Slight; RBC 1.81 m/uL (4.30-5.90); RDW 19.7 % (11.5-15.5); WBC 12.7 k/uL (3.8-10.6)
[2019-11-30 08:45] LABS: HGB 4.2 gm/dL (13.0-17.5)
[2019-11-30 08:46] LABS: HCT 14.2 % (39.0-53.0)
[2019-11-30] MEDS ORDERED: AMIODARONE 200 MG TAB PO SCH (09:00)
[2019-11-30] MEDS ORDERED: SODIUM CHLORIDE 0.9% 1,000 ML IV SCH (09:00)
[2019-11-30] MEDS ORDERED: METOLAZONE 2.5 MG TAB PO SCH (09:00)
[2019-11-30] MEDS: CHOLECALCIFEROL 1,000 UNIT TAB PO SCH (09:44)
[2019-11-30] MEDS: PANTOPRAZOLE 40 MG TABLET PO SCH (09:44)
[2019-11-30] MEDS: CYANOCOBALAMIN 500 MCG TAB PO SCH (09:44)
[2019-11-30] MEDS: POTASSIUM CHLORIDE ER 20 MEQ TAB.ER PO SCH (09:44)
[2019-11-30] MEDS: VENLAFAXINE HCL 75 MG TAB PO SCH ×2 (09:45→21:19)
[2019-11-30] MEDS: INSULIN DETEMIR (LEVEMIR) 100 UNIT/ML SYR SQ SCH ×2 (09:48→21:14)
[2019-11-30 09:51] LABS: Glucose,Whole Blood 184 mg/dL (75-99)
[2019-11-30] MEDS: guaiFENesin 600 MG TABLET.ER PO SCH (10:07)
[2019-11-30 10:34] LABS: Glucose,Whole Blood 180 mg/dL (75-99)
[2019-11-30] MEDS ORDERED: FUROSEMIDE 10 MG/ML 4 ML VIAL IV STA (11:13)
--- NOTE | 2019-11-30 11:13 | P.PN ---
Subjective Patient is seen in follow-up for acute kidney injury on chronic kidney disease. Renal function is stable. Edema slowly improving. Patient was noted to be quite lethargic this morning. Hemoglobin was 4.2. No active bleeding. He is scheduled to receive 2 units of packed red cell transfusion today. Vital signs: Blood pressure on the lower side. Afebrile. General: The patient appeared well nourished and normally developed. HEENT: Head exam is unremarkable. Neck is without jugular venous distension. LUNGS: Lungs are clear to auscultation and percussion. Breath sounds decreased. HEART: Rate and Rhythm are regular. ABDOMEN: Nontender. Nondistended. EXTREMITITES: 2+ edema. Objective - Vital Signs Vital signs: Vital Signs Temp 97.7 F 11/30/19 08:00 Pulse 121 H 11/30/19 08:00 Resp 18 11/30/19 08:05 BP 89/56 11/30/19 09:01 Pulse Ox 100 11/30/19 08:00 Intake & Output 11/29/19 11/30/19 11/30/19 18:59 06:59 18:59 Intake Total 360 Output Total 2 500 Balance 360 -2 -500 Weight 118 kg Intake: Oral 360 Output: Urine 500 Uretheral (Bansal) 500 Stool 2 Other: Voiding Method Indwelling Catheter Indwelling Catheter Indwelling Catheter - Labs CBC & Chem 7: 11/30/19 05:55 11/30/19 05:55 Labs: Abnormal Lab Results - Last 24 Hours (Table) 11/29/19 11/29/19 11/29/19 Range/Units 11:28 16:16 20:11 WBC (3.8-10.6) k/uL RBC (4.30-5.90) m/uL Hgb (13.0-17.5) gm/dL Hct (39.0-53.0) % MCV (80.0-100.0) fL MCH (25.0-35.0) pg MCHC (31.0-37.0) g/dL RDW (11.5-15.5) % BUN (9-20) mg/dL Creatinine (0.66-1.25) mg/dL Glucose (74-99) mg/dL POC Glucose (mg/dL) 274 H 291 H 294 H (75-99) mg/dL Plasma Lactic Acid Rodriguez (0.7-2.0) mmol/L Crossmatch 11/30/19 11/30/19 11/30/19 Range/Units 05:55 05:55 06:03 WBC 12.7 H (3.8-10.6) k/uL RBC 1.81 L (4.30-5.90) m/uL Hgb 4.2 L* D (13.0-17.5) gm/dL Hct 14.2 L* (39.0-53.0) % MCV 78.2 L (80.0-100.0) fL MCH 22.9 L (25.0-35.0) pg MCHC 29.3 L (31.0-37.0) g/dL RDW 19.7 H (11.5-15.5) % BUN 122 H* (9-20) mg/dL Creatinine 1.83 H (0.66-1.25) mg/dL Glucose 166 H (74-99) mg/dL POC Glucose (mg/dL) 210 H (75-99) mg/dL Plasma Lactic Acid Rodriguez (0.7-2.0) mmol/L Crossmatch 11/30/19 11/30/19 11/30/19 Range/Units 09:12 09:40 09:48 WBC (3.8-10.6) k/uL RBC (4.30-5.90) m/uL Hgb (13.0-17.5) gm/dL Hct (39.0-53.0) % MCV (80.0-100.0) fL MCH (25.0-35.0) pg MCHC (31.0-37.0) g/dL RDW (11.5-15.5) % BUN (9-20) mg/dL Creatinine (0.66-1.25) mg/dL Glucose (74-99) mg/dL POC Glucose (mg/dL) 184 H (75-99) mg/dL Plasma Lactic Acid Rodriguez 5.2 H* (0.7-2.0) mmol/L Crossmatch See Detail 11/30/19 Range/Units 10:32 WBC (3.8-10.6) k/uL RBC (4.30-5.90) m/uL Hgb (13.0-17.5) gm/dL Hct (39.0-53.0) % MCV (80.0-100.0) fL MCH (25.0-35.0) pg MCHC (31.0-37.0) g/dL RDW (11.5-15.5) % BUN (9-20) mg/dL Creatinine (0.66-1.25) mg/dL Glucose (74-99) mg/dL POC Glucose (mg/dL) 180 H (75-99) mg/dL Plasma Lactic Acid Rodriguez (0.7-2.0) mmol/L Crossmatch Assessment and Plan Plan: Assessment: 1. Acute kidney injury secondary to ATN secondary to cardiorenal syndrome. Renal function stable. Creatinine 1.83 today. 2. Chronic kidney disease stage III with baseline creatinine in the range of 0.9-1.2. 3. Acute on chronic systolic CHF with ejection fraction of 25%. 4. Volume overload. Improving with diuresis. 5. Atrophic right kidney with mass. Patient will follow-up with urology outpatient. 6. Insulin-dependent diabetes mellitus. 7. Hypokalemia secondary to diuresis. Better posterior placement. Magnesium normal. 8. Acute blood loss anemia. Hemoglobin 4.2 this morning. Plan: Patient scheduled to receive 2 units of packed red cell transfusion with Lasix of 40 mg in between. Maintain midodrine. Hep-Lock IV fluids. Patient is currently hypervolemic. Continue to monitor renal function and urine output.
--- NOTE | 2019-11-30 11:15 | P.PN ---
Subjective Progress Note Date: 11/30/19 This is a pleasant 79-year-old gentleman who follows regularly with Dr. Vargas in the office. He has a known history of coronary artery disease with prior bypass surgery, persistent atrial fibrillation, ischemic cardiomyopathy with prior AICD implant, this was performed in September 2018, h istory of diabetes, hypertension, hyperlipidemia. Patient also has history of kidney and bladder cancer with prior chemo and radiation. Presents to the hospital with at least one week duration of progressively worsening shortness of breath. He states that he also noticed a significant increase in his bilateral lower extremity edema. The patient denies any fever or chills at home. Chest x-ray on presentation here showed congestive cardiac failure. EKG showed atrial fibrillation with a rapid ventricular response. Blood pressure 106/70 with a heart rate of 120, afebrile, 98% on room air. White blood cell count is normal, hemoglobin 9.9, platelet count 236. Sodium 139, potassium 4.6, chloride 106, CO2 20, BUN 54, creatinine 1.8. Plasma lactic acid 2.3 on admission, 1.4 this morning, BNP level 2710. Troponin 0.02, 0.03, 0.03. Patient was initiated on IV Lasix in the emergency room. He has been overall diuresing quite well and his weight is down today. Patient continues to be quite short of breath, continues to have lower extremity edema. The patient is currently on Eliquis 5 mg one tablet by mouth twice a day, he is 79 years of age and his creatinine on admission was 2, we will monitor that creatinine closely, if it remains in the 2 range we will consider decreasing the Eliquis at 2-1/2 mg one tablet by mouth twice a day. We will continue the patient on IV Lasix. We will increase the dose of Coreg, patient is not currently on an TERRANCE inhibitor or an angiotensin scarlet because of the creatinine. 11/21/2019 Patient was seen and examined this morning, he continues to feel significantly short of breath, states he does not notice much improvement from his admission here. Labs are pending. Blood pressure 95/50, heart rate 108. 11/22/2019 Patient seen and examined this morning, states that he feels more short of breath today than he did on arrival here. His urine output is minimal. Continues to be hypotensive. Sodium 135, potassium 4.9, BUN 79, creatinine 2.7. We will start the patient on dobutamine drip at 2.5 g, after 10 minutes we'll increase to 5 mics. Obtain a repeat stat chest x-ray. This was discussed by Dr. Juan Major with nephrology this morning as well. 11/23/2019 Patient seen and examined this morning, sitting up in the chair at bedside. He states he does not feel a lot different than yesterday, maybe mildly better. This is the first day the patient has acknowledged to feeling some mild improvement in his breathing. He diuresed much better through the night last night after being initiated on the dobutamine. Blood pressure 92/40 with a heart rate in the 70s. Laboratory data from today, sodium 139, potassium 4.0, BUN 78, creatinine 2.4. 11/28/2019 Patient seen and examined this morning, still complains of feeling short of breath, but does admit to feeling mildly better overall. He diuresed over 4 L in the past 24 hours. Sodium 139, potassium 3.2, BUN 86, creatinine 2.0. We will continue the patient at this time on IV Lasix. Repeat lytes BUN and creatinine tomorrow. Replace potassium. 11/29/2019 Patient seen and examined this morning sitting up in his chair at bedside. Overall he does state that his breathing is improving every day. Blood pressure 104/50 with a heart rate in the 70s. He continued to diurese well through the night last night. Laboratory data from today, sodium 138, potassium 3.6, BUN 109 and creatinine 1.7 11/30/2019 Patient was seen and examined this morning, quite hypotensive in the healthcare administrative assistant hours. Breathing otherwise stable. Had good urine output through the night last night. He was given a bolus of IV fluids by Dr. Major. His laboratory data from today, sodium 140, potassium 3.5, BUN 122, creatinine 1.8. Patient did not have a CBC. We will requested a stat CBC be performed and the hemoglobin came back at 4.2 with a hematocrit of 14.2 and a platelet count of 241. Patient was ordered 2 units of packed red blood cells, we will discontinue the Eliquis, discontinue the patient's aspirin, because of the hypotension we will also stop the amiodarone and Coreg this morning. Was recommended by Dr. Juan Major that the patient be urgently transferred to the intensive care unit. The has been notified of the patient's status. Objective - Vital Signs Vital signs: Vital Signs Temp 97.7 F 11/30/19 08:00 Pulse 121 H 11/30/19 08:00 Resp 18 11/30/19 08:05 BP 89/56 11/30/19 09:01 Pulse Ox 100 11/30/19 08:00 Intake & Output 11/29/19 11/30/19 11/30/19 18:59 06:59 18:59 Intake Total 360 Output Total 2 500 Balance 360 -2 -500 Weight 118 kg Intake: Oral 360 Output: Urine 500 Uretheral (Bansal) 500 Stool 2 Other: Voiding Method Indwelling Catheter Indwelling Catheter Indwelling Catheter - Exam PHYSICAL EXAMINATION: GENERAL: 79-year-old gentleman in no acute distress at the time of my examination HEENT: Head is atraumatic, normocephalic. Pupils equal, round. Sclera anicteric. Conjunctiva are clear. Mucous membranes of the mouth are moist. Neck is supple. There is elevated jugular venous pressure. No carotid bruit is heard. HEART EXAMINATION: Heart S1-S2 irregularly irregular a systolic murmur is heard CHEST EXAMINATION: Lungs show improvement in air entry bilaterally ABDOMEN: Soft, obese, nontender. Bowel sounds are heard. No organomegaly noted. EXTREMITIES: 2+ peripheral pulses with trace - 1+ evidence of peripheral edema and no calf tenderness noted. NEUROLOGIC patient is awake, alert and oriented 3 . - Labs CBC & Chem 7: 11/30/19 05:55 11/30/19 05:55 Labs: Abnormal Lab Results - Last 24 Hours (Table) 11/29/19 11/29/19 11/29/19 Range/Units 11:28 16:16 20:11 WBC (3.8-10.6) k/uL RBC (4.30-5.90) m/uL Hgb (13.0-17.5) gm/dL Hct (39.0-53.0) % MCV (80.0-100.0) fL MCH (25.0-35.0) pg MCHC (31.0-37.0) g/dL RDW (11.5-15.5) % BUN (9-20) mg/dL Creatinine (0.66-1.25) mg/dL Glucose (74-99) mg/dL POC Glucose (mg/dL) 274 H 291 H 294 H (75-99) mg/dL Plasma Lactic Acid Rodriguez (0.7-2.0) mmol/L Crossmatch 11/30/19 11/30/19 11/30/19 Range/Units 05:55 05:55 06:03 WBC 12.7 H (3.8-10.6) k/uL RBC 1.81 L (4.30-5.90) m/uL Hgb 4.2 L* D (13.0-17.5) gm/dL Hct 14.2 L* (39.0-53.0) % MCV 78.2 L (80.0-100.0) fL MCH 22.9 L (25.0-35.0) pg MCHC 29.3 L (31.0-37.0) g/dL RDW 19.7 H (11.5-15.5) % BUN 122 H* (9-20) mg/dL Creatinine 1.83 H (0.66-1.25) mg/dL Glucose 166 H (74-99) mg/dL POC Glucose (mg/dL) 210 H (75-99) mg/dL Plasma Lactic Acid Rodriguez (0.7-2.0) mmol/L Crossmatch 11/30/19 11/30/19 11/30/19 Range/Units 09:12 09:40 09:48 WBC (3.8-10.6) k/uL RBC (4.30-5.90) m/uL Hgb (13.0-17.5) gm/dL Hct (39.0-53.0) % MCV (80.0-100.0) fL MCH (25.0-35.0) pg MCHC (31.0-37.0) g/dL RDW (11.5-15.5) % BUN (9-20) mg/dL Creatinine (0.66-1.25) mg/dL Glucose (74-99) mg/dL POC Glucose (mg/dL) 184 H (75-99) mg/dL Plasma Lactic Acid Rodrigeuz 5.2 H* (0.7-2.0) mmol/L Crossmatch See Detail 11/30/19 Range/Units 10:32 WBC (3.8-10.6) k/uL RBC (4.30-5.90) m/uL Hgb (13.0-17.5) gm/dL Hct (39.0-53.0) % MCV (80.0-100.0) fL MCH (25.0-35.0) pg MCHC (31.0-37.0) g/dL RDW (11.5-15.5) % BUN (9-20) mg/dL Creatinine (0.66-1.25) mg/dL Glucose (74-99) mg/dL POC Glucose (mg/dL) 180 H (75-99) mg/dL Plasma Lactic Acid Rodriguez (0.7-2.0) mmol/L Crossmatch Assessment and Plan Plan: Assessment and plan #1 systolic congestive heart failure acute on chronic #2 coronary artery disease with prior bypass surgery #3 chronic persistent atrial fibrillation #4 hypertension #5 diabetes #6 hyperlipidemia #7 ischemic cardiomyopathy with prior AICD #8 acute on chronic renal insufficiency #9 acute anemia Plan Stat CBC showed a hemoglobin of 4.2, patient will receive 2 unit of packed red blood cells, he is also receiving IV fluids for hypotension this morning. We will discontinue the Eliquis and the baby aspirin, hold the Coreg and amiodarone at this time. Patient will also be transferred to the intensive care unit and managed by the highway truck driver. We will continue to follow. DNP note has been reviewed, I agree with a documented findings and plan of care. Patient was seen and examined.
--- NOTE | 2019-11-30 12:12 | P.PN ---
Subjective Progress Note Date: 11/30/19 Principal diagnosis: Exertional dyspnea, anasarca This is an 79-year-old male patient of Dr. Cavanaugh, with known history of severe ischemic cardiomyopathy, and ejection fraction of less than 20%, status post AICD placement, hypertension, diabetes mellitus, hyperlipidemia, persistent atrial fibrillation, coronary artery disease status post bypass grafting, ex- smoker, chronic congestive heart failure with systolic dysfunction, history of kidney and bladder cancer status post chemo and radiation, who presented to the emergency department on 11/19/2019 with complaints of worsening exertional dyspnea, and increased swelling in his lower extremities. He denied any chest pain, palpitations, no fever or chills, no nausea vomiting, no diaphoresis, no cough or phlegm production. Admission chest x-ray showed creased vascular congestion, and pulmonary edema and a small left pleural effusion. Admission blood work was negative for any leukocytosis, white blood cell count was 8.2, hemoglobin is 10.6, mild lymphopenia, INR is 1.3, potassium is 5.2, the rest of the electrolytes were within normal limits, BUN is 52 creatinine is 2.0, patient does have history of chronic kidney disease stage III, this showed signs of infection although patient denies any symptoms, troponins were 0.031, 0.026, 0.031, proBNP was 2710. We were asked to see the patient in consultation. Patient has been started on infusion of Lasix, early infusing at a rate of 10 mg per hour, and dobutamine drip infusing at 5 mics per kilo per minute. A is on oral Eliquis for history of chronic atrial fibrillation he remains in A. fib with a controlled rate of 93 bpm. He is sitting up in the recliner, in no acute distress, on 4 L of oxygen with a pulse ox of 95-98%, he is been afebrile, he has not diuresed significantly despite the Lasix infusion, and today's blood work shows worsening of his renal profile would be on up to 79 and creatinine is up to 2.7. Nephrology is following. 11/23/2019, the patient was seen and examined at his bedside on the cardiac stepdown unit with Dr. Rivers. He reports he is slightly better today, denies any complaints of pain or shortness of breath just sitting. He is sitting up to the bedside chair and is in no acute distress. Lasix drip at 10 mg per hour and dopamine drip at 2.5 mcg/kg/m continue infusing. He remained hemodynamically stable and currently has oxygen saturations are 96% on 4 L nasal cannula. Repeat chest x-ray was completed this morning which demonstrated cardiomegaly with mild prominence of pulmonary vasculature marking with diffuse increasing lung field markings compatible with congestive heart failure. He has been afebrile the last 24 hours. Lab results today show a BUN 78, creatinine 2.48 and a BNP level 1740. A urine culture was sent yesterday with results pending. On 11/24/2019 the patient was seen and examined with Dr. Rivers. Denies pain, shortness of breath. Sitting up in bed and appears comfortable. Remains afebrile. Hematologically stable. Currently on 4 L nasal cannula with oxygen saturation 97%. Continues on dobutamine at 2.5 mcg and Lasix at 10 mg an hour. Chest x-ray seems to be improving a bit, still has atelectasis present. BUN 84, creatinine 2.37. Urine culture negative. Fluid balance -4 L for the last 48 hours. the patient is seen today 11/25/2019 in follow-up on the selective care unit. He is currently awake and alert in no acute distress. Denies any worsening shortness of breath, cough or congestion. He is still quite edematous especially the lower extremities.he had remained in a negative balance.currently maintaining O2 saturations in the high 90s on 3 L/m per nasal cannula. He is afebrile. Hemodynamically stable.urine culture reveals no growth.sodium 141. Potassium 3.8. Bicarb 23. Creatinine 2.52. He is continued on dobutamine at 2.5 mg/kg/m. Lasix drip at 5 mg per hour. Antibiotics in the form of ceftriaxone. Anticoagulated with Eliquis. The patient is seen today 11/26/2019 in follow-up on the selective care unit. Sitting up in a chair at the bedside. Awake and alert in no acute distress. Breathing a bit easier today compared to yesterday. Maintaining O2 saturations at 99% on 2 L/m per nasal cannula. He's been afebrile. Urine culture revealed no growth. Sodium 141. Potassium 3.8. Creatinine 2.23. Dobutamine has been discontinued. He is on a Lasix drip at 5 mg per hour. Currently in a positive balance. Weight is down 2 kg. Bansal catheter remains in place. Antibiotics in the form of ceftriaxone. Anticoagulated with Eliquis. On 11/27/2019 patient seen in follow-up on [facility] care unit, he is awake and alert, in no acute distress, sitting up in the recliner, he is currently on 2 L of oxygen, his pulse ox 96%, his been afebrile, hemodynamically patient is stable, he is currently off dobutamine and Lasix drip, his breathing has significantly improved, lower extremity edema improved. Today's chest x-ray showed extensive interstitial and alveolar infiltrates with some improvement. There were also small pleural effusions no new labs today, patient remains on diuretics at 60 mg every 12 hours, nephrology is managing, he remains on Rocephin for possible urinary tract infection, his been afebrile, no urinary symptoms. On 11/28/2019 patient seen in follow-up on [facility] care unit, he is awake and alert, in no acute distress, sitting up in the recliner. Oxygen saturations are currently 99% on 2 L nasal cannula. He remains hemodynamically stable and is currently in no acute distress. He's been afebrile the last 24 hours. Continues to remain off the dobutamine and Lasix drip and is on 0.9% normal saline at 20 mL per hour. There was no repeat chest x-ray today. The patient reports overall he is feeling better on a daily basis and his edema to his bilateral lower extremity is improving. He remains on Lasix 60 mg IV every 12 hours and Zaroxolyn 5 mg by mouth daily which is being managed by nephrology. Anthony knight remains on Rocephin for suspected UTI, his urine culture results are negative. He remains on remote telemetry which is showing atrial fibrillation heart rate 70. On 11/29/2019 patient seen in follow-up on [facility] care unit, he is awake and alert, in no acute distress, sitting up in the recliner with his feet elevated. The patient reports he is feeling improved each day. Denies any complaints of shortness of breath sitting there and the chair. Oxygen saturations are 98% on 2 L nasal cannula. 0.9% normal saline was infusing at 20 mL per hour. He did not have a repeat chest x-ray today. He remains hemodynamically stable and has been afebrile the last 24 hours. He continues to receive Lasix 40 mg by mouth twice a day and Zaroxolyn 2.5 mg by mouth daily which is being managed by [facility] and cardiology. Lab results today show a BUN 109, creatinine 1.78. His antibiotics were discontinued yesterday as his urine culture results were negative. He remains on remote telemetry which is showing atrial fibrillation heart rate 90. On 11/30/2019 the patient was seen in follow-up on the cardiac stepdown unit with Dr. Kingsley. He was awake although sleepy, lying in bed in no acute distress. Denies any pain or shortness of breath. General overall weakness present. Currently on 2 L nasal cannula with oxygen saturation 100%. Remains afebrile. Heart rate in the low 100 100s, irregular, remains in atrial fibrillation. Blood pressure 70s over 40s with means in the 50s. IV fluid boluses given per cardiology. White blood cell count 12.7, hemoglobin 4.2, BUN 122, creatinine 1.83, lactic acid drawn 5.2. Patient was transferred back to the intensive care unit with orders for transfusion of 2 units packed red blood cells. Chest x-ray appears stable and unchanged. No visualized evidence of acute GI bleeding. Patient had been on Eliquis for anticoagulation secondary to atrial fibrillation management, discontinued this morning. Remains no CODE STATUS. Objective - Vital Signs Vital signs: Vital Signs Temp 97.5 F L 11/30/19 11:20 Pulse 114 H 11/30/19 11:20 Resp 26 H 11/30/19 11:20 BP 72/32 11/30/19 11:20 Pulse Ox 100 11/30/19 11:20 Intake & Output 11/29/19 11/30/19 11/30/19 18:59 06:59 18:59 Intake Total 360 0 Output Total 2 500 Balance 360 -2 -500 Weight 118 kg Intake: Oral 360 Blood Product 0 Rc As-1 Unit 0 [id number] Output: Urine 500 Uretheral (Bansal) 500 Stool 2 Other: Voiding Method Indwelling Catheter Indwelling Catheter Indwelling Catheter - Constitutional Constitutional Comment(s): Appears comfortable but very weak. Sleepy but does arouse. General appearance: Present: cooperative, no acute distress - Respiratory Details: Lungs sounds diminished bilaterally with a few scattered rhonchi present. Respirations even, nonlabored. Currently on 2 L nasal cannula with oxygen saturation 100%. - Cardiovascular Details: S1, S2 present. Tachycardic, irregular rate and rhythm, atrial fibrillation with rapid ventricular response. Palpable peripheral pulses bilaterally. 1-2+ bilateral lower extremity edema present. - Gastrointestinal Gastrointestinal Comment(s): Abdomen soft, nontender, nondistended. No organomegaly. Active bowel sounds present 4 quadrants. - Genitourinary Genitourinary Comment(s): Bansal present draining clear yellow urine. - Integumentary Integumentary Comment(s): Skin is warm and dry. Patient appears pale - Neurologic Neurologic: Present: CNII-XII intact - Musculoskeletal Musculoskeletal: Present: generalized weakness - Psychiatric Psychiatric: Present: A&O x's 3, appropriate affect - Allied health notes Allied health notes reviewed: nursing - Labs CBC & Chem 7: 11/30/19 05:55 11/30/19 05:55 Labs: Abnormal Lab Results - Last 24 Hours (Table) 11/29/19 11/29/19 11/30/19 Range/Units 16:16 20:11 05:55 WBC (3.8-10.6) k/uL RBC (4.30-5.90) m/uL Hgb (13.0-17.5) gm/dL Hct (39.0-53.0) % MCV (80.0-100.0) fL MCH (25.0-35.0) pg MCHC (31.0-37.0) g/dL RDW (11.5-15.5) % BUN 122 H* (9-20) mg/dL Creatinine 1.83 H (0.66-1.25) mg/dL Glucose 166 H (74-99) mg/dL POC Glucose (mg/dL) 291 H 294 H (75-99) mg/dL Plasma Lactic Acid Rodriguez (0.7-2.0) mmol/L Crossmatch 11/30/19 11/30/19 11/30/19 Range/Units 05:55 06:03 09:12 WBC 12.7 H (3.8-10.6) k/uL RBC 1.81 L (4.30-5.90) m/uL Hgb 4.2 L* D (13.0-17.5) gm/dL Hct 14.2 L* (39.0-53.0) % MCV 78.2 L (80.0-100.0) fL MCH 22.9 L (25.0-35.0) pg MCHC 29.3 L (31.0-37.0) g/dL RDW 19.7 H (11.5-15.5) % BUN (9-20) mg/dL Creatinine (0.66-1.25) mg/dL Glucose (74-99) mg/dL POC Glucose (mg/dL) 210 H (75-99) mg/dL Plasma Lactic Acid Rodriguez (0.7-2.0) mmol/L Crossmatch See Detail 11/30/19 11/30/19 11/30/19 Range/Units 09:40 09:48 10:32 WBC (3.8-10.6) k/uL RBC (4.30-5.90) m/uL Hgb (13.0-17.5) gm/dL Hct (39.0-53.0) % MCV (80.0-100.0) fL MCH (25.0-35.0) pg MCHC (31.0-37.0) g/dL RDW (11.5-15.5) % BUN (9-20) mg/dL Creatinine (0.66-1.25) mg/dL Glucose (74-99) mg/dL POC Glucose (mg/dL) 184 H 180 H (75-99) mg/dL Plasma Lactic Acid Rodriguez 5.2 H* (0.7-2.0) mmol/L Crossmatch - Imaging and Cardiology Chest x-ray: report reviewed, image reviewed Assessment and Plan Assessment: 1. Acute exacerbation of chronic congestive heart failure with systolic dysfunction 2. Acute kidney injury likely related to cardiorenal syndrome, diuretic therapy, nephrology is following 3. Acute urinary tract infection, placed on ceftriaxone, urine culture negative 4. Ischemic cardiomyopathy, with EF of less than 20%, status post AICD implantation 5. Diabetes mellitus 6. History of chronic persistent atrial fibrillation on oral anticoagulation 7. History of chronic kidney disease stage III at baseline, history of right hy dronephrosis and patient follows with urology 8. Coronary artery disease status post bypass grafting 9. Hypertension 10. Hyperlipidemia 11. History of bladder cancer 12. Acute anemia, unknown etiology, patient was on Eliquis, no visual evidence of GIB Plan: The patient was seen and examined at his bedside with Dr. Kingsley. Repeat chest x-ray in a.m. Wean oxygen as tolerated to keep sats greater than or equal to 92%. Atrial fibrillation and CHF management per cardiology recommendations. Lasix and Zaroxolyn management per nephrology recommendations. Will transfuse 2 units PRBCs and repeat Hgb Continue to monitor daily weights More recommendations to follow I, the cosigning physician, performed a history & physical examination of the pa ernesto. Lungs sounds were diminished in the bases. Maintaining good O2 saturations in the 90s on 2 L nasal cannula. I discussed the assessment and plan of care with my nurse practitioner, Chanel Diego. I attest to the above note as dictated by her. Time with Patient: Greater than 30
--- NOTE | 2019-11-30 14:31 | P.PN ---
Progress Note - Text Progress Note Date: 11/30/19 Chief Complaint: Shortness of breath Patient is a 79-year-old patient of Dr. Cavanaugh. history of chronic atrial fibrillation on anticoagulation with Eliquis, coronary artery disease status post bypass graft, cardiomyopathy status post AICD placement, history of nephrec araceli and unilateral kidney, CK D stage III, hypertension, hyperlipidemia, GERD, diabetes type 2 and history of bipolar/depression came to ER with complaints of worsening shortness of breath and exertional dyspnea and bilateral lower extremity increases swelling for the past 2 weeks. Patient does have minimal cough without any sputum production. No sputum production. No complaints of fever or chills. Denied any sick contacts at home. No recent travel. Admitted with CHF exacerbation, atrial fibrillation with a rapid ventricular rate. Started on IV Lasixdrip and IV amiodarone.then IV dobutamine was added. Switch to IV Lasix bolus. Today-. Patient's blood pressure had been running low. This morning again hypotensive. Lasix was held. Cardiology ordered a hemoglobin came back at 4.2. 2 units of blood was ordered. Patient was moved to the ICU. Tired. Review of systems: Patient tired to give any further history Active Medications Atorvastatin Calcium (Lipitor) 80 mg PO [facility] Last Admin: 11/29/19 20:32 Dose: 80 mg Documented by: Cholecalciferol (Vitamin D3 (25 Mcg = 1000 Iu)) 2,000 unit PO DAILY [facility] Last Admin: 11/30/19 09:44 Dose: 2,000 unit Documented by: Cyanocobalamin (Vitamin B-12) 1,000 mcg PO DAILY [facility] Last Admin: 11/30/19 09:44 Dose: 1,000 mcg Documented by: Insulin Aspart (Novolog) 0 unit SQ [facility]; Protocol Last Admin: 11/30/19 11:18 Dose: 3 unit Documented by: Insulin Detemir (Levemir) 40 unit SQ [facility] Last Admin: 11/29/19 20:35 Dose: 40 unit Documented by: Insulin Detemir (Levemir) 10 [facility] Last Admin: 11/30/19 09:48 Dose: 10 unit Documented by: Lamotrigine (Lamictal) 100 mg PO [facility] Last Admin: 11/29/19 20:36 Dose: 100 mg Documented by: Melatonin (Melatonin) 3 mg PO [facility] Last Admin: 11/29/19 20:36 Dose: 3 mg Documented by: Midodrine (Proamatine) 10 mg PO AC-TID [facility] Last Admin: 11/30/19 11:18 Dose: 10 mg Documented by: Ondansetron HCl (Zofran) 4 mg IVP Q6HR PRN PRN Reason: Nausea And Vomiting Last Admin: 11/24/19 16:43 Dose: 4 mg Documented by: Pantoprazole Sodium (Protonix) 40 mg PO AC-BRKFST [facility] Last Admin: 11/30/19 09:44 Dose: 40 mg Documented by: Potassium Chloride (K-Dur 20) 20 meq PO DAILY [facility] Last Admin: 11/30/19 09:44 Dose: 20 meq Documented by: Venlafaxine HCl (Effexor) 75 mg PO BID [facility] Last Admin: 11/30/19 09:45 Dose: 75 mg Documented by: On examination: VITAL SIGNS: 97.5, 114, 26, 72/32, 100% GENERAL APPEARANCE: Tired, lethargic HEENT: Normal external appearance of nose and ear. Oral cavity dry EYES: Pupils equal. Conjunctiva pale. NECK: JVD unable to assess Mass not palpable. RESPIRATORY: Respiratory effort increased. Decreased breath sounds. CARDIOVASCULAR: Heart sounds irregular, edema decreased ABDOMEN: Soft. Liver and spleen not palpable. No tenderness. No mass palpable. Bansal catheter-hematuria cleared PSYCHIATRY: Lethargic, bit delirious INVESTIGATIONS, reviewed in the clinical context: White count 12.7 hemoglobin 4.2 bun 122 creatinine 1.83 Previous testing: White count 8.2 hemoglobin 10.6 potassium 5.2 bun 52 creatinine 2.0 troponin I 0.0-3 EKG-possible A. fib Chest x-ray film personally reviewed by me-pulmonary edema cardiomegaly BUN/creatinine on October 07 Assessment: Acute on chronic congestive heart failure exacerbation from systolic dysfunction, EF less than 30% -Acute blood loss anemia-source undetermined -Hypotension multifactorial Ischemic cardiomyopathy Persistent atrial fibrillation on anticoagulation with Eliquis, rate better controlled Acute kidney injury secondary to cardiorenal syndrome, -chronic kidney disease stage III. Mild hyperkalemia secondary to acute kidney injury Lactic acidosis-type II History of nephrectomy due to renal cancer and bladder cancer history Diabetes type 2. Insulin-dependent and also on metformin and glipizide. Hyperlipidemia Coronary artery disease with history of multiple stents placement Bipolar disorder and depression GERD Obesity with BMI 34.9 - Plan: Patient moved to the ICU earlier today. 2 units of blood were ordered. Eliquis was held. Also beta scarlet and amiodarone was held. Prognosis guarded. We will consult GI.
[2019-11-30 16:45] LABS: Glucose,Whole Blood 210 mg/dL (75-99)
[2019-11-30] MEDS ORDERED: CARVEDILOL 6.25 MG TAB PO SCH (17:30)
[2019-11-30 21:06] LABS: Glucose,Whole Blood 268 mg/dL (75-99)
[2019-11-30] MEDS: lamoTRIgine 100 MG TAB PO SCH (21:14)
[2019-11-30] MEDS: MELATONIN 3 MG TABLET PO SCH (21:14)
[2019-11-30] MEDS: ATORVASTATIN 80 MG TAB PO SCH (21:14)
[2019-11-30 22:04] LABS: Anisocytosis Slight; Hypochromasia Moderate; MCH 25.7 pg (25.0-35.0); MCHC 31.8 g/dL (31.0-37.0); Mean Platelet Volume 8.2; Microcytosis Slight; Platelet Count 239 k/uL (150-450); Poikilocytosis Moderate; RBC 2.37 m/uL (4.30-5.90); RDW 19.5 % (11.5-15.5); WBC 19.1 k/uL (3.8-10.6)
[2019-11-30 22:15] LABS: HCT 19.2 % (39.0-53.0); HGB 6.1 gm/dL (13.0-17.5)
[2019-12-01 04:56] LABS: Anisocytosis Slight; HCT 21.7 % (39.0-53.0); Hypochromasia Moderate; MCH 25.9 pg (25.0-35.0); MCHC 31.7 g/dL (31.0-37.0); MCV 81.7 fL (80.0-100.0); Mean Platelet Volume 7.9; Microcytosis Slight; Platelet Count 238 k/uL (150-450); Poikilocytosis Moderate; RBC 2.66 m/uL (4.30-5.90); WBC 17.8 k/uL (3.8-10.6)
[2019-12-01 05:04] LABS: HGB 6.9 gm/dL (13.0-17.5)
[2019-12-01 05:09] LABS: Calcium 8.8 mg/dL (8.4-10.2); Potassium 2.9 mmol/L (3.5-5.1)
[2019-12-01] MEDS ORDERED: POTASSIUM CHLORIDE ER 20 MEQ TAB.ER PO ONE ×3 (06:00→16:00)
[2019-12-01] MEDS ORDERED: FUROSEMIDE 10 MG/ML 4 ML VIAL IV STA (06:19)
[2019-12-01 06:49] LABS: Glucose,Whole Blood 157 mg/dL (75-99)
[2019-12-01] MEDS: PANTOPRAZOLE 40 MG TABLET PO SCH (06:52)
[2019-12-01] MEDS: MIDODRINE 5 MG TAB PO SCH ×3 (06:52→17:05)
[2019-12-01] MEDS: INSULIN ASPART (NovoLOG) 100 UNIT/ML VIAL SQ SCH ×4 (06:52→21:09)
[2019-12-01] MEDS ORDERED: FUROSEMIDE 20 MG TAB PO SCH (09:00)
[2019-12-01] MEDS: POTASSIUM CHLORIDE ER 20 MEQ TAB.ER PO SCH ×5 (10:32→23:36)
[2019-12-01] MEDS: INSULIN DETEMIR (LEVEMIR) 100 UNIT/ML SYR SQ SCH ×2 (10:33→21:08)
[2019-12-01] MEDS: CHOLECALCIFEROL 1,000 UNIT TAB PO SCH (10:33)
[2019-12-01] MEDS: VENLAFAXINE HCL 75 MG TAB PO SCH ×2 (10:33→21:08)
[2019-12-01] MEDS: CYANOCOBALAMIN 500 MCG TAB PO SCH (10:34)
--- NOTE | 2019-12-01 10:48 | CONS ---
CONSULTATION DATE OF DICTATION: 12/01/2019 REASON FOR CONSULTATION: Severe symptomatic anemia and black colored stools for 2 days. HISTORY OF PRESENT ILLNESS: The patient is an 79-year-old pleasant white male with history of ischemic cardiomyopathy with an ejection fraction of 20%, history of AICD implantation, hypertension, diabetes mellitus, hyperlipidemia, atrial fibrillation on Eliquis and coronary artery disease was admitted to the hospital because of exertional dyspnea, increasing swelling of his lower extremity on November. He has been in the intensive care unit all along. At the time of admission to the hospital, hemoglobin was 11 and gradually decreased and yesterday the hemoglobin was as low as 6.5 g/dL. Received 2 units of blood transfusions. Repeat CBC was 6.7 and receiving 2 more units of blood transfusion. Repeat CBC following the fourth unit is still pending. During the course of hospitalization, he developed worsening of his chronic kidney disease and at one point was noted to have mild elevation of troponins and cardiology was consulted. The patient presently remains in the intensive care unit, doing well. He denies any complaints. He reports no abdominal pain. He reports no nausea, vomiting. He denies any rectal bleeding. He had some black tarry stools for the last 2 days duration. PAST MEDICAL HISTORY: His past medical history was significant for hypertension, hyperlipidemia, diabetes mellitus, coronary artery disease, congestive heart failure, and gastroesophageal reflux disease. MEDICATIONS AT HOME: Eliquis, aspirin, Lipitor, Coreg, Lasix, Glucotrol, Lantus, Effexor, Lamictal, vitamin D, B. SOCIAL HISTORY: No smoking. No alcohol use. FAMILY HISTORY: Unremarkable. PAST SURGICAL HISTORY: CABG. PHYSICAL EXAMINATION: On physical examination, he appears comfortable. No apparent distress. Vital signs are stable. Blood pressure is 104/59, pulse rate 68, temperature 96.3. HEENT: Examination unremarkable. Conjunctivae pink. Sclerae anicteric. Oral cavity no lesions. NECK: No JVD or lymph node enlargement. CHEST: Decreased breath sounds bilaterally. HEART: Regular rate and rhythm. ABDOMEN: Soft. Bowel sounds are positive. No organomegaly. EXTREMITIES: 2+ pedal edema. SKIN: No rashes. NEURO: He is alert and oriented x3. No focal deficits. LABS: Labs from today: WBC 19.1, hemoglobin 6.1, platelets 239. He receives 2 units of blood transfusion, repeat hemoglobin was 6.9 and he is currently receiving 2 more units of blood transfusion. BUN went up to 109 yesterday and today it is 124, creatinine is 2.04. Hemoglobin 2 days ago was 4.2 g/dL. IMPRESSION: 1. Acute anemia with hemoglobin of 4.2, requiring a total of 4 units of blood transfusion, presently remains on Eliquis for atrial fibrillation, currently on hold for the last 36 hours. He received a total of 4 units of blood transfusion, last hemoglobin was 6.9 g/dL. He has been having black tarry stools for the last 2 days duration. hemoglobin from 11 at the time of admission to the hospital 10 days ago. 2. Atrial fibrillation on Eliquis, currently on hold. 3. History of congestive heart failure. 4. Coronary artery disease, status post CABG several years ago. 5. Chronic kidney disease, acute worsening of renal parameters. RECOMMENDATIONS: 1. Hold Eliquis and aspirin. 2. Agree with blood transfusion. 3. Continue with Protonix 40 mg twice daily. 4. Will proceed with an EGD and colonoscopy tomorrow. Discussed with the patient and he is agreeable to it. Thank you for this consultation. MMODL / IJN: [id number] /
--- NOTE | 2019-12-01 10:59 | P.PN ---
Subjective Patient is seen in follow-up for acute kidney injury on chronic kidney disease. Renal function is a little worse today. Edema is improved. He is nonoliguric. Patient is receiving fourth unit of packed red cell transfusion today. Hemoglobin was 6.9 this morning. Scheduled for endoscopy tomorrow. He is still quite lethargic. Vital signs: Blood pressure on the lower side. Afebrile. General: The patient appeared well nourished and normally developed. HEENT: Head exam is unremarkable. Neck is without jugular venous distension. LUNGS: Lungs are clear to auscultation and percussion. Breath sounds decreased. HEART: Rate and Rhythm are regular. ABDOMEN: Nontender. Nondistended. EXTREMITITES: 1+ edema. Objective - Vital Signs Vital signs: Vital Signs Temp 96.3 F L 12/01/19 06:34 Pulse 68 12/01/19 07:00 Resp 11 L 12/01/19 07:00 BP 104/59 12/01/19 07:00 Pulse Ox 98 12/01/19 07:00 Intake & Output 11/30/19 12/01/19 12/01/19 18:59 06:59 18:59 Intake Total 1300 1140 Output Total 1505 1654 50 Balance -205 -514 -50 Weight 117.8 kg 117.8 kg Intake: Intake, IV Titration 320 180 Amount Sodium Chloride 0.9% 1, 320 180 000 ml @ 100 mls/hr IV . Q10H [facility] Rx#:[id number] Oral 240 Blood Product 930 620 Rc As-1 Unit 310 [id number] Rc As-1 Unit 0 310 [id number] Rc As-1 Unit 0 [id number] Rc As-3 Unit 310 [id number] Other 50 100 Rc As-1 Unit 50 [id number] Rc As-1 Unit 100 [id number] Output: Urine 1505 1650 50 Uretheral (Bansal) 500 Stool 4 Other: Voiding Method Indwelling Catheter Indwelling Catheter Indwelling Catheter - Labs CBC & Chem 7: 12/01/19 04:35 12/01/19 04:35 Labs: Abnormal Lab Results - Last 24 Hours (Table) 11/30/19 11/30/19 11/30/19 Range/Units 09:12 14:52 16:43 WBC (3.8-10.6) k/uL RBC (4.30-5.90) m/uL Hgb (13.0-17.5) gm/dL Hct (39.0-53.0) % RDW (11.5-15.5) % Potassium (3.5-5.1) mmol/L BUN (9-20) mg/dL Creatinine (0.66-1.25) mg/dL Glucose (74-99) mg/dL POC Glucose (mg/dL) 210 H (75-99) mg/dL Plasma Lactic Acid Rodrigeuz 5.3 H* (0.7-2.0) mmol/L Crossmatch See Detail 11/30/19 11/30/19 11/30/19 Range/Units 19:19 21:04 21:39 WBC 19.1 H (3.8-10.6) k/uL RBC 2.37 L (4.30-5.90) m/uL Hgb 6.1 L* D (13.0-17.5) gm/dL Hct 19.2 L* (39.0-53.0) % RDW 19.5 H (11.5-15.5) % Potassium (3.5-5.1) mmol/L BUN (9-20) mg/dL Creatinine (0.66-1.25) mg/dL Glucose (74-99) mg/dL POC Glucose (mg/dL) 268 H (75-99) mg/dL Plasma Lactic Acid Rodriguez 3.0 H* (0.7-2.0) mmol/L Crossmatch 12/01/19 12/01/19 12/01/19 Range/Units 04:35 04:35 06:47 WBC 17.8 H (3.8-10.6) k/uL RBC 2.66 L (4.30-5.90) m/uL Hgb 6.9 L* (13.0-17.5) gm/dL Hct 21.7 L (39.0-53.0) % RDW 19.0 H (11.5-15.5) % Potassium 2.9 L (3.5-5.1) mmol/L BUN 124 H* (9-20) mg/dL Creatinine 2.04 H (0.66-1.25) mg/dL Glucose 160 H (74-99) mg/dL POC Glucose (mg/dL) 157 H (75-99) mg/dL Plasma Lactic Acid Rodriguez (0.7-2.0) mmol/L Crossmatch Assessment and Plan Plan: Assessment: 1. Acute kidney injury secondary to ATN secondary to cardiorenal syndrome and acute blood loss anemia. Renal function is a little worse today. Creatinine 2.03. 2. Chronic kidney disease stage III with baseline creatinine in the range of 0.9-1.2. 3. Acute on chronic systolic CHF with ejection fraction of 25%. 4. Volume overload. Improving with diuresis. 5. Atrophic right kidney with mass. Patient will follow-up with urology outpatient. 6. Insulin-dependent diabetes mellitus. 7. Hypokalemia secondary to diuresis. Better posterior placement. Magnesium normal. 8. Acute GI bleed. Currently receiving his fourth unit of blood transfusion. Scheduled for endoscopy tomorrow. 9. Hypokalemia secondary to diuresis. Plan: Patient scheduled to receive 2 units of packed red cell transfusion with Lasix of 40 mg in between. Maintain Lasix 40 mg orally twice daily. Maintain midodrine. Potassium is being replaced. Continue to monitor renal function and urine output. I will also give him a dose of IV DDAVP today.
[2019-12-01] MEDS ORDERED: DESMOPRESSIN ACETATE 24 MCG in SODIUM CHLORIDE 0.9% 50 ML IVPB ONE (11:15)
[2019-12-01 11:24] LABS: Glucose,Whole Blood 159 mg/dL (75-99)
--- NOTE | 2019-12-01 11:58 | P.PN ---
Subjective Progress Note Date: 12/01/19 79-year-old male patient of Dr. Cavanaugh, with known history of severe ischemic cardiomyopathy, and ejection fraction of less than 20%, status post AICD placement, hypertension, diabetes mellitus, hyperlipidemia, persistent atrial fibrillation, coronary artery disease status post bypass grafting, ex-smoker, chronic congestive heart failure with systolic dysfunction, history of kidney and bladder cancer status post chemo and radiation, who presented to the emergency department on 11/19/2019 with complaints of worsening exertional dyspnea, and increased swelling in his lower extremities. He denied any chest pain, palpitations, no fever or chills, no nausea vomiting, no diaphoresis, no cough or phlegm production. Admission chest x-ray showed creased vascular congestion, and pulmonary edema and a small left pleural effusion. Admission blood work was negative for any leukocytosis, white blood cell count was 8.2, hemoglobin is 10.6, mild lymphopenia, INR is 1.3, potassium is 5.2, the rest of the electrolytes were within normal limits, BUN is 52 creatinine is 2.0, patient does have history of chronic kidney disease stage III, this showed signs of infection although patient denies any symptoms, troponins were 0.031, 0.026, 0.031, proBNP was 2710. We were asked to see the patient in consultation. Patient has been started on infusion of Lasix, early infusing at a rate of 10 mg per hour, and dobutamine drip infusing at 5 mics per kilo per minute. A is on oral Eliquis for history of chronic atrial fibrillation he remains in A. fib with a controlled rate of 93 bpm. He is sitting up in the recliner, in no acute distress, on 4 L of oxygen with a pulse ox of 95-98%, he is been afebrile, he has not diuresed significantly despite the Lasix infusion, and today's blood work shows worsening of his renal profile would be on up to 79 and creatinine is up to 2.7. Nephrology is following. On 11/27/2019 patient seen in follow-up on selective care unit, he is awake and alert, in no acute distress, sitting up in the recliner, he is currently on 2 L of oxygen, his pulse ox 96%, his been afebrile, hemodynamically patient is stable, he is currently off dobutamine and Lasix drip, his breathing has significantly improved, lower extremity edema improved. Today's chest x-ray showed extensive interstitial and alveolar infiltrates with some improvement. There were also small pleural effusions no new labs today, patient remains on diuretics at 60 mg every 12 hours, nephrology is managing, he remains on Rocephin for possible urinary tract infection, his been afebrile, no urinary symptoms. On 12/01/2019 patient seen in follow-up in intensive care unit, he is up in the recliner, he is awake and alert and oriented 3, she is a very weak, and sort of slow to respond, however his mentation is appropriate. He denies any worsening dyspnea, she did complain of some abdominal discomfort, his abdomen is soft, nontender, and last night he did have 2 very small black stools. Patient received 3 units of packed red blood cells yesterday for a hemoglobin of 4.2. Today's labs show hemoglobin of 6.9, and patient is receiving an additional unit of packed red blood cells, white count of 17.8, platelet count is 238, potassium is 2.9, sodium is 139, chloride is 102, B1 is 124, creatinine is 2.04. But pressure did improve with fluid boluses and blood transfusion. This morning blood pressure is 104/59, he does get midodrine 10 mg 3 times daily, he was given a total of 500 mL and IV fluid boluses, and his maintenance IV fluids are infusing at a rate of 10 ML per hour. Lung sounds are clear, diminished at the bases. He is on PPI therapy, GI consultation has been requested. He is nothing by mouth currently for a possibility of endoscopic study, waiting to be evaluated by GI service Objective - Vital Signs Vital signs: Vital Signs Temp 96.3 F L 12/01/19 06:34 Pulse 68 12/01/19 07:00 Resp 11 L 12/01/19 07:00 BP 104/59 12/01/19 07:00 Pulse Ox 98 12/01/19 07:00 Intake & Output 11/30/19 12/01/19 12/01/19 18:59 06:59 18:59 Intake Total 1300 1140 200 Output Total 1505 1654 1050 Balance -605 -562 -464 Weight 117.8 kg 117.8 kg Intake: Intake, IV Titration 320 180 Amount Sodium Chloride 0.9% 1, 320 180 000 ml @ 100 mls/hr IV . Q10H [facility] Rx#:[id number] Oral 240 200 Blood Product 930 620 Rc As-1 Unit 310 [id number] Rc As-1 Unit 0 310 [id number] Rc As-1 Unit 0 [id number] Rc As-3 Unit 310 [id number] Other 50 100 Rc As-1 Unit 50 [id number] Rc As-1 Unit 100 [id number] Output: Urine 1505 1650 1050 Uretheral (Bansal) 500 Stool 4 Other: Voiding Method Indwelling Catheter Indwelling Catheter Indwelling Catheter - Exam GENERAL EXAM: Alert, very pleasant, 79-year-old male, on 2 L of oxygen with a pulse ox of 96 %, sitting up in the recliner, appears quite weak, pale but in no acute distress HEAD: Normocephalic/atraumatic. EYES: Normal reaction of pupils, equal size. Conjunctiva pink, sclera white. NOSE: Clear with pink turbinates. THROAT: No erythema or exudates. NECK: No masses, no JVD, no thyroid enlargement, no adenopathy. CHEST: No chest wall deformity. Symmetrical expansion. LUNGS: Equal air entry with fine basilar crackles at bilateral bases CVS: Irregular rate and rhythm, normal S1 and S2, no gallops, no murmurs, no rubs ABDOMEN: Soft, nontender. No hepatosplenomegaly, normal bowel sounds, no guarding or rigidity. EXTREMITIES: No clubbing, significant 2+ lower extremity edema, no cyanosis, 2+ pulses and upper and lower extremities. MUSCULOSKELETAL: Muscle strength and tone normal. SPINE: No scoliosis or deformity SKIN: No rashes CENTRAL NERVOUS SYSTEM: Alert and oriented -3. No focal deficits, tone is n ormal in all 4 extremities. PSYCHIATRIC: Alert and oriented -3. Appropriate affect. Intact judgment and insight. - Labs CBC & Chem 7: 12/01/19 04:35 12/01/19 04:35 Labs: Abnormal Lab Results - Last 24 Hours (Table) 11/30/19 11/30/19 11/30/19 Range/Units 09:12 14:52 16:43 WBC (3.8-10.6) k/uL RBC (4.30-5.90) m/uL Hgb (13.0-17.5) gm/dL Hct (39.0-53.0) % RDW (11.5-15.5) % Potassium (3.5-5.1) mmol/L BUN (9-20) mg/dL Creatinine (0.66-1.25) mg/dL Glucose (74-99) mg/dL POC Glucose (mg/dL) 210 H (75-99) mg/dL Plasma Lactic Acid Rodriguez 5.3 H* (0.7-2.0) mmol/L Crossmatch See Detail 11/30/19 11/30/19 11/30/19 Range/Units 19:19 21:04 21:39 WBC 19.1 H (3.8-10.6) k/uL RBC 2.37 L (4.30-5.90) m/uL Hgb 6.1 L* D (13.0-17.5) gm/dL Hct 19.2 L* (39.0-53.0) % RDW 19.5 H (11.5-15.5) % Potassium (3.5-5.1) mmol/L BUN (9-20) mg/dL Creatinine (0.66-1.25) mg/dL Glucose (74-99) mg/dL POC Glucose (mg/dL) 268 H (75-99) mg/dL Plasma Lactic Acid Rodriguez 3.0 H* (0.7-2.0) mmol/L Crossmatch 12/01/19 12/01/19 12/01/19 Range/Units 04:35 04:35 06:47 WBC 17.8 H (3.8-10.6) k/uL RBC 2.66 L (4.30-5.90) m/uL Hgb 6.9 L* (13.0-17.5) gm/dL Hct 21.7 L (39.0-53.0) % RDW 19.0 H (11.5-15.5) % Potassium 2.9 L (3.5-5.1) mmol/L BUN 124 H* (9-20) mg/dL Creatinine 2.04 H (0.66-1.25) mg/dL Glucose 160 H (74-99) mg/dL POC Glucose (mg/dL) 157 H (75-99) mg/dL Plasma Lactic Acid Rodriguez (0.7-2.0) mmol/L Crossmatch 12/01/19 Range/Units 11:22 WBC (3.8-10.6) k/uL RBC (4.30-5.90) m/uL Hgb (13.0-17.5) gm/dL Hct (39.0-53.0) % RDW (11.5-15.5) % Potassium (3.5-5.1) mmol/L BUN (9-20) mg/dL Creatinine (0.66-1.25) mg/dL Glucose (74-99) mg/dL POC Glucose (mg/dL) 159 H (75-99) mg/dL Plasma Lactic Acid Rodriguez (0.7-2.0) mmol/L Crossmatch Assessment and Plan Plan: Assessment: #1. Acute exacerbation of chronic congestive heart failure with systolic dysfunction #2. Acute kidney injury likely related to cardiorenal syndrome, diuretic therapy, nephrology is following #3. Acute GI blood loss anemia, requiring transfusion of packed red blood cells, patient's hemoglobin was down to 4.1 and patient started passing some black tarry bowel movements, was on Eliquis which is on hold. Patient received 4 units of packed red blood cells #4. Hypotension, related to acute GI bleed, improved with fluids and blood transfusions #5. Acute urinary tract infection, although patient is asymptomatic, we'll start on empiric Rocephin #6. Ischemic cardiomyopathy, with EF of less than 20%, status post AICD implantation #7. Diabetes mellitus #8. History of chronic persistent atrial fibrillation on oral anticoagulation #9. History of chronic kidney disease stage III at baseline, history of right hydronephrosis and patient follows with urology #10. Coronary artery disease status post bypass grafting #11. Hypertension #12. Hyperlipidemia #13. History of bladder cancer Plan: Patient is receiving additional unit of packed red blood cells for today's hemoglobin of 6.9, continue PPI therapy, Eliquis is on hold, patient starting to pass small black stools, GI evaluation is underway, continue to keep patient nothing by mouth for possibility of endoscopic study. Blood pressure has improved, no worsening shortness of breath no complaints of chest pain, patient does appear to be pale and fatigued. But no acute distress. Diuretics remain on hold, renal function has worsened on today's labs. Oxygenation is stable she remains on 2 L of oxygen with pulse ox of 94%, will continue to monitor the patient in the intensive care unit today. Await further input from GI service. Code status is DO NOT RESUSCITATE continue supportive treatment I performed a history & physical examination of the patient and discussed their management with my nurse practitioner, Vicki Enamorado. I reviewed the nurse practitioner's note and agree with the documented findings and plan of care. Lung sounds are positive for fine rales. The findings and the impression was discussed with the patient. I attest to the documentation by the nurse practitioner. Time with Patient: Less than 30
--- NOTE | 2019-12-01 12:39 | PN ---
PROGRESS NOTE Tr Bhakta is an elderly gentleman with ischemic cardiomyopathy and a Bi-V ICD. He has underlying atrial fibrillation. Yesterday, he had hypotension. Laboratory data revealed that his hemoglobin was less than 5. He received 4 units of packed RBCs. This morning, he is not on any Levophed. His blood pressure is about 95 to 100 systolic. He is holding his own at this time. His hemoglobin has come up. There is no obvious bleeding. We have requested Gastroenterology to see the patient in this regard. He is not in any distress. Denies chest pain. Complains of feeling weak. Blood pressure is 104/60, pulse rate is 70, Irregular. HEENT: Unremarkable. Fundus was not examined by me. Neck is supple. There is no JVD. Heart exam reveals S1, S2 with a short systolic murmur. Lungs reveal diminished air entry. Abdomen is soft. Lower extremities reveal mild edema. Central nervous system grossly no focal deficits. IMPRESSION: 1. Acute gastrointestinal bleed which seems to have stopped, status post 4 units of packed RBC transfusion. Awaiting GI evaluation and input. 2. Ischemic cardiomyopathy. 3. Chronic persistent atrial fibrillation. 4. Status post biventricular pacemaker. RECOMMENDATIONS: I am recommending that we will give a 40 mg Lasix IV push after this transfusion. I will place him on oral Lasix 40 mg b.i.d., check a CBC and BMP at 6 p.m. and 6 a.m. Overall prognosis for this patient is somewhat poor. I discussed my thoughts in detail with the patient. MMJESSICAL / IJN: [id number] /
[2019-12-01] MEDS ORDERED: PEG 3350-NA SULF,BICARB,CL/KCL 4,000 ML BOTTLE PO ONE (13:00)
[2019-12-01 13:40] LABS: Anisocytosis Slight; Basophils % (A) 0 %; Eosinophils # (A) 0.2 k/uL (0-0.7); Eosinophils % (A) 1 %; HCT 25.6 % (39.0-53.0); HGB 8.1 gm/dL (13.0-17.5); Hypochromasia Moderate; Lymphocytes # (A) 1.6 k/uL (1.0-4.8); Lymphocytes % (A) 9 %; MCH 26.2 pg (25.0-35.0); MCHC 31.8 g/dL (31.0-37.0); MCV 82.2 fL (80.0-100.0); Mean Platelet Volume 7.6; Monocytes # (A) 1.2 k/uL (0-1.0); Monocytes % (A) 7 %; Neutrophils # (A) 14.7 k/uL (1.3-7.7); Neutrophils % (A) 81 %; Platelet Count 271 k/uL (150-450); Poikilocytosis Marked; RBC 3.11 m/uL (4.30-5.90); RDW 18.6 % (11.5-15.5); WBC 18.1 k/uL (3.8-10.6)
--- NOTE | 2019-12-01 15:57 | P.PN ---
Progress Note - Text Progress Note Date: 12/01/19 Chief Complaint: Shortness of breath Patient is a 79-year-old patient of Dr. Cavanaugh. history of chronic atrial fibrillation on anticoagulation with Eliquis, coronary artery disease status post bypass graft, cardiomyopathy status post AICD placement, history of nephrec araceli and unilateral kidney, CK D stage III, hypertension, hyperlipidemia, GERD, diabetes type 2 and history of bipolar/depression came to ER with complaints of worsening shortness of breath and exertional dyspnea and bilateral lower extremity increases swelling for the past 2 weeks. Patient does have minimal cough without any sputum production. No sputum production. No complaints of fever or chills. Denied any sick contacts at home. No recent travel. Admitted with CHF exacerbation, atrial fibrillation with a rapid ventricular rate. Started on IV Lasixdrip and IV amiodarone.then IV dobutamine was added. Switch to IV Lasix bolus. November 29 patient became hypotensive. Hemoglobin dropped to 4.2. Moved to the ICU. Receive 3 units of blood. Also had some dark stools. Today-. Sitting on chair. Tired. Not much of an appetite. Hemoglobin 6.9. Another unit of blood ordered. Seen by GI. Pending endoscopy. Tomorrow Review of systems: Was done for constitutional, cardiovascular, GI, pulmonary. relevant finding as above Active Medications Atorvastatin Calcium (Lipitor) 80 mg PO HS [facility] Last Admin: 11/30/19 21:14 Dose: 80 mg Documented by: Cholecalciferol (Vitamin D3 (25 Mcg = 1000 Iu)) 2,000 unit PO DAILY [facility] Last Admin: 12/01/19 10:33 Dose: 2,000 unit Documented by: Cyanocobalamin (Vitamin B-12) 1,000 mcg PO DAILY [facility] Last Admin: 12/01/19 10:34 Dose: 1,000 mcg Documented by: Furosemide (Lasix) 40 mg PO BID@0900,1600 [facility] Insulin Aspart (Novolog) 0 unit SQ [facility]; Protocol Last Admin: 12/01/19 12:23 Dose: 2 unit Documented by: Insulin Detemir (Levemir) 40 unit SQ [facility] Last Admin: 11/30/19 21:14 Dose: 40 unit Documented by: Insulin [facility]emir (Levemir) [facility] Admin: 12/01/19 10:33 Dose: 10 unit Documented by: Lamotrigine (Lamictal) 100 mg PO [facility] Last Admin: 11/30/19 21:14 Dose: 100 mg Documented by: Melatonin (Melatonin) 3 mg PO [facility] Last Admin: 11/30/19 21:14 Dose: 3 mg Documented by: Midodrine (Proamatine) 10 mg PO AC-TID [facility] Last Admin: 12/01/19 12:23 Dose: 10 mg Documented by: Ondansetron HCl (Zofran) 4 mg IVP Q6HR PRN PRN Reason: Nausea And Vomiting Last Admin: 11/24/19 16:43 Dose: 4 mg Documented by: Pantoprazole Sodium (Protonix) 40 mg IVP BID [facility] Potassium Chloride (K-Dur 20) 20 meq PO DAILY [facility] Last Admin: 12/01/19 10:32 Dose: Not Given Documented by: Potassium Chloride (K-Dur 20) 60 meq PO ONCE ONE Stop: 12/01/19 16:01 Venlafaxine HCl (Effexor) 75 mg PO BID [facility] Last Admin: 12/01/19 10:33 Dose: 75 mg Documented by: On examination: VITAL SIGNS: 97.3, 73, 13, 107/63, 97% GENERAL APPEARANCE: Sitting up in a chair, tired, weak HEENT: Normal external appearance of nose and ear. Oral cavity dry EYES: Pupils equal. Conjunctiva pale. NECK: JVD unable to assess Mass not palpable. RESPIRATORY: Respiratory effort increased. Decreased breath sounds. CARDIOVASCULAR: Heart sounds irregular, edema decreased ABDOMEN: Soft. Liver and spleen not palpable. No tenderness. No mass palpable. Bansal catheter-hematuria cleared PSYCHIATRY: Answering questions INVESTIGATIONS, reviewed in the clinical context: White count 7.8 hemoglobin 6.9 bun 124 creatinine 2.04 potassium 2.9 Previous testing: White count 8.2 hemoglobin 10.6 potassium 5.2 bun 52 creatinine 2.0 troponin I 0.0-3 EKG-possible A. fib Chest x-ray film personally reviewed by me-pulmonary edema cardiomegaly BUN/creatinine on October 07 Assessment: Acute on chronic congestive heart failure exacerbation from systolic dysfunction, EF less than 30% -Acute blood loss anemia-black tarry stools, pending endoscopy, 1 unit of blood to be transfused today. -Severe hypokalemia from diuresis -Hypotension multifactorial Ischemic cardiomyopathy Persistent atrial fibrillation on anticoagulation with Eliquis, rate better controlled Acute kidney injury secondary to cardiorenal syndrome, -chronic kidney disease stage III. Mild hyperkalemia secondary to acute kidney injury Lactic acidosis-type II History of nephrectomy due to renal cancer and bladder cancer history Diabetes type 2. Insulin-dependent and also on metformin and glipizide. Hyperlipidemia Coronary artery disease with history of multiple stents placement Bipolar disorder and depression GERD Obesity with BMI 34.9 - Plan: Another unit of blood ordered. Potassium being replaced. Remains in the ICU. Prognosis guarded. EGD colonoscopy tomorrow.
[2019-12-01] MEDS: FUROSEMIDE 20 MG TAB PO SCH (17:05)
[2019-12-01 17:18] LABS: Glucose,Whole Blood 127 mg/dL (75-99)
[2019-12-01 19:08] LABS: Anisocytosis Slight; HCT 24.5 % (39.0-53.0); HGB 7.9 gm/dL (13.0-17.5); Hypochromasia Moderate; MCH 26.4 pg (25.0-35.0); MCHC 32.2 g/dL (31.0-37.0); MCV 82.1 fL (80.0-100.0); Mean Platelet Volume 7.7; Platelet Count 244 k/uL (150-450); Poikilocytosis Marked; RBC 2.98 m/uL (4.30-5.90); RDW 18.7 % (11.5-15.5); WBC 18.9 k/uL (3.8-10.6)
[2019-12-01 19:23] LABS: Potassium 3.2 mmol/L (3.5-5.1)
[2019-12-01 19:32] LABS: Hepatitis B Surface AB- Quant 3.5 mIU/mL; Hepatitis B Surface Antibody Non-Reactive (Non-Reactive); Hepatitis B Surface Antigen Non-Reactive (Non-Reactive)
[2019-12-01] MEDS: lamoTRIgine 100 MG TAB PO SCH (21:08)
[2019-12-01] MEDS: ATORVASTATIN 80 MG TAB PO SCH (21:08)
[2019-12-01] MEDS: MELATONIN 3 MG TABLET PO SCH (21:08)
[2019-12-01] MEDS: PANTOPRAZOLE 40 MG/10 ML VIAL IVP SCH (21:08)
[2019-12-01 21:10] LABS: Glucose,Whole Blood 102 mg/dL (75-99)
[2019-12-02 04:23] LABS: Anisocytosis Slight; HCT 25.9 % (39.0-53.0); HGB 8.2 gm/dL (13.0-17.5); Hypochromasia Moderate; MCH 26.3 pg (25.0-35.0); MCHC 31.6 g/dL (31.0-37.0); MCV 83.5 fL (80.0-100.0); Mean Platelet Volume 8.6; Platelet Count 271 k/uL (150-450); Poikilocytosis Marked; RDW 18.8 % (11.5-15.5); WBC 17.8 k/uL (3.8-10.6)
[2019-12-02 04:33] LABS: Calcium 8.9 mg/dL (8.4-10.2)
[2019-12-02] MEDS ORDERED: NA PHOS,M-B/NA PHOS,DI-BA 133 ML ENEMA RECTAL STA (06:37)
[2019-12-02 06:50] LABS: Glucose,Whole Blood 92 mg/dL (75-99)
[2019-12-02] MEDS: INSULIN ASPART (NovoLOG) 100 UNIT/ML VIAL SQ SCH ×4 (06:50→20:44)
[2019-12-02] MEDS: MIDODRINE 5 MG TAB PO SCH ×3 (08:00→18:10)
--- NOTE | 2019-12-02 08:33 | P.PN ---
Subjective Progress Note Date: 12/02/19 This is an 79-year-old male with significant cardiomyopathy ejection fraction 25% atrial fibrillation chronic heart failure was admitted with worsening shortness of breath and is being followed up with acute kidney injury from cardiorenal syndrome. He also had significant anemia and blood loss. Creatini ne has been going up somewhat. Admission creatinine on 11/19/2019 was 22.7 on 11/22/2019 and then started to improve and is currently on 1.82. He has been transfused and is on Lasix. Also has a kidney mass on the right than atrophy daily and previously has had hydronephrosis. Patient is on midodrine, blood pressure in the 90s to 101/62. Currently he is awake alert and responds and follows commands. He is on O2 nasal cannula and is comfortable. His atrial fibrillation. Not on pressors Objective - Vital Signs Vital signs: Vital Signs Temp 97.9 F 12/02/19 04:00 Pulse 80 12/02/19 07:00 Resp 17 12/02/19 07:00 BP 101/62 12/02/19 07:00 Pulse Ox 99 12/02/19 07:00 Intake & Output 12/01/19 12/02/19 12/02/19 18:59 06:59 18:59 Intake Total 560 1890 Output Total 1625 1327 100 Balance -1065 563 -100 Weight 117.8 kg 118.2 kg Intake: Intake, IV Titration 50 Amount Desmopressin Acetate 24 50 mcg In Sodium Chloride 0. 9% 50 ml @ 200 mls/hr IVPB ONCE ONE Rx#: [id number] Oral 200 1890 Blood Product 310 Rc As-1 Unit 310 [id number] Output: Urine 1625 1320 100 Stool 7 Other: Voiding Method Indwelling Catheter Indwelling Catheter # Bowel Movements 1 4 On examination awake alert oriented HEENT exam no JVP neck is supple no facial asymmetry Except clear to auscultation good air entry bilaterally Heart sounds unremarkable atrial fibrillation. Abdomen soft nontender extremity examination reveals mild edema Neurologically awake alert oriented - Labs CBC & Chem 7: 12/02/19 04:11 12/02/19 04:11 Labs: Abnormal Lab Results - Last 24 Hours (Table) 11/30/19 12/01/19 12/01/19 Range/Units 09:12 11:22 13:16 WBC 18.1 H (3.8-10.6) k/uL RBC 3.11 L (4.30-5.90) m/uL Hgb 8.1 L (13.0-17.5) gm/dL Hct 25.6 L (39.0-53.0) % RDW 18.6 H (11.5-15.5) % Neutrophils # 14.7 H (1.3-7.7) k/uL Monocytes # 1.2 H (0-1.0) k/uL Potassium (3.5-5.1) mmol/L Carbon Dioxide (22-30) mmol/L BUN (9-20) mg/dL Creatinine (0.66-1.25) mg/dL Glucose (74-99) mg/dL POC Glucose (mg/dL) 159 H (75-99) mg/dL Crossmatch See Detail 12/01/19 12/01/19 12/01/19 Range/Units 13:16 17:16 18:38 WBC 18.9 H (3.8-10.6) k/uL RBC 2.98 L (4.30-5.90) m/uL Hgb 7.9 L (13.0-17.5) gm/dL Hct 24.5 L (39.0-53.0) % RDW 18.7 H (11.5-15.5) % Neutrophils # (1.3-7.7) k/uL Monocytes # (0-1.0) k/uL Potassium 3.3 L (3.5-5.1) mmol/L Carbon Dioxide (22-30) mmol/L BUN (9-20) mg/dL Creatinine (0.66-1.25) mg/dL Glucose (74-99) mg/dL POC Glucose (mg/dL) 127 H (75-99) mg/dL Crossmatch 12/01/19 12/01/19 12/02/19 Range/Units 18:38 21:09 04:11 WBC 17.8 H (3.8-10.6) k/uL RBC 3.10 L (4.30-5.90) m/uL Hgb 8.2 L (13.0-17.5) gm/dL Hct 25.9 L (39.0-53.0) % RDW 18.8 H (11.5-15.5) % Neutrophils # (1.3-7.7) k/uL Monocytes # (0-1.0) k/uL Potassium 3.2 L (3.5-5.1) mmol/L Carbon Dioxide 31 H (22-30) mmol/L BUN 120 H* (9-20) mg/dL Creatinine 1.87 H (0.66-1.25) mg/dL Glucose 112 H (74-99) mg/dL POC Glucose (mg/dL) 102 H (75-99) mg/dL Crossmatch 12/02/19 Range/Units 04:11 WBC (3.8-10.6) k/uL RBC (4.30-5.90) m/uL Hgb (13.0-17.5) gm/dL Hct (39.0-53.0) % RDW (11.5-15.5) % Neutrophils # (1.3-7.7) k/uL Monocytes # (0-1.0) k/uL Potassium (3.5-5.1) mmol/L Carbon Dioxide 32 H (22-30) mmol/L BUN 113 H* (9-20) mg/dL Creatinine 1.82 H (0.66-1.25) mg/dL Glucose (74-99) mg/dL POC Glucose (mg/dL) (75-99) mg/dL Crossmatch Assessment and Plan Assessment: Impression 1. Acute kidney injury secondary to cardiorenal syndrome improving with diuretics, urine output is 2952, intake is 2450, creatinine is improved to 1.8 2. Chronic kidney disease, stage III with a creatinine 1.2, GFR elevated in the 40s to 50s 3. Mild metabolic alkalosis, secondary to diuresis 4. Anemia of GI blood loss, going for EGD colonoscopy today Recommendation 1. Maintain Lasix 40 twice a day by mouth 2. Maintain midodrine 3. Watch metabolic alkalosis 4. Pending EGD and colonoscopy. 5. Transfuse as needed
[2019-12-02 08:37] LABS: Glucose,Whole Blood 110 mg/dL (75-99)
[2019-12-02] MEDS: PANTOPRAZOLE 40 MG/10 ML VIAL IVP SCH ×2 (08:46→20:44)
[2019-12-02] MEDS ORDERED: PROPOFOL 10 MG/ML 20 ML VIAL IV ONE (09:29)
--- NOTE | 2019-12-02 09:32 | PN ---
PROGRESS NOTE Tr Bhakta is an 79-year-old gentleman with ischemic cardiomyopathy, GI bleeding. He still has some melenic stool, hemodynamically stable, not on any pressors. Hemoglobin today is 8.1. His heart rate is in the 70s, atrial fibrillation. JVD is evident 1 cm, no carotid bruit, S1, S2 with irregular rhythm, short systolic murmur. Lungs reveal diminished air entry. Abdomen is soft. Lower extremities reveal diminished pulses. Central nervous system grossly, no focal deficits. I am recommending that EGD can be performed today. Cardiac-sparks, we will continue his current medical regimen. I suspect he has an upper GI bleeding, probably a gastric or duodenal ulcer. However, hemoglobin has been stable. Cardiac-sparks same medications. He will have endoscopy today. MMODL / IJN: [id number] /
[2019-12-02] MEDS ORDERED: LACTATED RINGERS 1,000 ML IV ONE (09:37)
[2019-12-02] MEDS ORDERED: EPINEPHrine 10 ML SYRINGE (0.1 MG/ML) SQ ONE (09:50)
--- NOTE | 2019-12-02 10:05 | P.PCN ---
Date of Procedure: 12/02/19 Procedure(s) Performed: BRIEF HISTORY: Patient is a 79-year-old, pleasant, white male admitted hospital with exacerbation of congestive heart failure and urinary mucosa was very this was noted to have significant drop in hemoglobin and black tarry stools. He dropped his hemoglobin of 4.5 g/dL and received 4 units of blood transfusion. He is scheduled for an upper endoscopy and possible colonoscopy today.. PROCEDURE PERFORMED: EGD with injection epinephrine, Endo Clip placement and biopsy. PREOPERATIVE DIAGNOSIS: Acute upper GI bleed IV sedation per anesthesia. PROCEDURE: After informed consent was obtained, the patient was brought into the endoscopy unit. IV sedation was administered by Anesthesia under continuous monitoring. Initially the Olympus GIF-140 video endoscope was inserted into the mouth. Esophagus intubated without any difficulty. It was gradually advanced into the stomach and duodenum and carefully examined. In the second portion of the duodenum just distal to the duodenal sweep there was a 1 cm ulcer with a visible vessel and active bleeding noted. Large clot was noted in this area following this there was active oozing identified. I injected 10 mL of 1 in 10,000 epinephrine at the base of the ulcer with significant decrease in bleeding. 4 endoclips were placed on the visible vessel and good hemostasis was achieved. Adjacent to this area there was another 1 cm ulcer with a clean base and the duodenal bulb there was a 1.5 cm ulcer with a clean base noted. The scope at this time was withdrawn to the stomach, adequately insufflated with air, and upon careful examination, mucosa of the antrum had erosive gastritis and biopsies were done from this area. The body, cardia and the fundus appeared normal. The scope was then withdrawn into the esophagus. The GE junction was located at 39 cm from the incisors. The esophagus appeared normal. There were no erosions or ulcerations seen and the patient tolerated the procedure well. IMPRESSION: 1. Actively bleeding duodenal ulcer in the second portion of the duodenum just distal to the duodenal sweep with a visible vessel status post injection epinephrine followed by Endo Clip placement as described above. 2. 2 other nonbleeding duodenal ulcers noted in the duodenal bulb and duodenal sweep with a clean base 3. Antral erosive gastritis. RECOMMENDATIONS: The findings of this examination were discussed with the patient. At this time continue with Protonix 40 mg twice daily. Monitor CBC every 8 hours and transfuse as needed. Start him on a clear liquid diet..
[2019-12-02 10:49] LABS: INR 1.3 (<1.2); Prothrombin Time 13.4 sec (9.0-12.0)
--- NOTE | 2019-12-02 11:19 | P.PN ---
Subjective Progress Note Date: 12/02/19 Principal diagnosis: Exertional dyspnea, anasarca This is an 79-year-old male patient of Dr. Cavanaugh, with known history of severe ischemic cardiomyopathy, and ejection fraction of less than 20%, status post AICD placement, hypertension, diabetes mellitus, hyperlipidemia, persistent atrial fibrillation, coronary artery disease status post bypass grafting, ex- smoker, chronic congestive heart failure with systolic dysfunction, history of kidney and bladder cancer status post chemo and radiation, who presented to the emergency department on 11/19/2019 with complaints of worsening exertional dyspnea, and increased swelling in his lower extremities. He denied any chest pain, palpitations, no fever or chills, no nausea vomiting, no diaphoresis, no cough or phlegm production. Admission chest x-ray showed creased vascular congestion, and pulmonary edema and a small left pleural effusion. Admission blood work was negative for any leukocytosis, white blood cell count was 8.2, hemoglobin is 10.6, mild lymphopenia, INR is 1.3, potassium is 5.2, the rest of the electrolytes were within normal limits, BUN is 52 creatinine is 2.0, patient does have history of chronic kidney disease stage III, this showed signs of infection although patient denies any symptoms, troponins were 0.031, 0.026, 0.031, proBNP was 2710. We were asked to see the patient in consultation. Patient has been started on infusion of Lasix, early infusing at a rate of 10 mg per hour, and dobutamine drip infusing at 5 mics per kilo per minute. A is on oral Eliquis for history of chronic atrial fibrillation he remains in A. fib with a controlled rate of 93 bpm. He is sitting up in the recliner, in no acute distress, on 4 L of oxygen with a pulse ox of 95-98%, he is been afebrile, he has not diuresed significantly despite the Lasix infusion, and today's blood work shows worsening of his renal profile would be on up to 79 and creatinine is up to 2.7. Nephrology is following. The patient is seen today 12/02/2019 in follow-up in the intensive care unit. He is currently awake and alert in no acute distress. Maintaining O2 saturations up to 100% on 2 L/m per nasal cannula. He's been afebrile. Hemodynamically stable. He was transferred to the intensive care unit for severe anemia. He is now status post 4 units packed red blood cells. He did undergo EGD this morning. He was found to have actively bleeding duodenal ulcer in the second portion of the duodenum just distal to the duodenal sweep with a visible vessel status post injection epinephrine followed by Endo Clip placemen t. Two other nonbleeding duodenal ulcers noted in the duodenal bulb. Antral erosive gastritis. He remains on Protonix 40 mg twice a day. Continue to monitor hemoglobin and transfuse as needed. White count 17.8. Hemoglobin 8.2. Platelet count 271. INR 1.3. Sodium 143. Potassium 4.0. Creatinine 1.82. He is on oral diuretics now. Remaining in a negative balance. Objective - Vital Signs Vital signs: Vital Signs Temp 98 F 12/02/19 08:58 Pulse 79 12/02/19 11:00 Resp 21 12/02/19 11:00 BP 107/63 12/02/19 11:00 Pulse Ox 99 12/02/19 11:00 Intake & Output 12/01/19 12/02/19 12/02/19 18:59 06:59 18:59 Intake Total 560 1890 200 Output Total 1625 1327 700 Balance -1065 563 -500 Weight 117.8 kg 118.2 kg Intake: IV 200 Intake, IV Titration 50 Amount Desmopressin Acetate 24 50 mcg In Sodium Chloride 0. 9% 50 ml @ 200 mls/hr IVPB ONCE ONE Rx#: [id number] Oral 200 1890 Blood Product 310 Rc As-1 Unit 310 [id number] Output: Urine 1625 1320 700 Stool 7 Other: Voiding Method Indwelling Catheter Indwelling Catheter # Bowel Movements 1 4 1 - Exam GENERAL EXAM: Alert, 79-year-old gentleman, awake and alert, on 2 L nasal cannula with an O2 saturation of 99%, comfortable in no apparent distress. HEAD: Normocephalic. EYES: Normal reaction of pupils, equal size. NOSE: Clear with pink turbinates. THROAT: No erythema or exudates. NECK: No masses, no JVD. CHEST: No chest wall deformity. LUNGS: Equal air entry with crackles through the mid lung gibson and lower lung gibson. CVS: S1 and S2 normal with no audible murmur, irregular rhythm. ABDOMEN: No hepatosplenomegaly, normal bowel sounds, no guarding or rigidity. SPINE: No scoliosis or deformity SKIN: No rashes CENTRAL NERVOUS SYSTEM: No focal deficits, tone is normal in all 4 extremities. EXTREMITIES: There is 1-2+ peripheral edema. No clubbing, no cyanosis. Peripheral pulses are intact. - Labs CBC & Chem 7: 12/02/19 04:11 12/02/19 04:11 Labs: Abnormal Lab Results - Last 24 Hours (Table) 11/30/19 12/01/19 12/01/19 Range/Units 09:12 11:22 13:16 WBC 18.1 H (3.8-10.6) k/uL RBC 3.11 L (4.30-5.90) m/uL Hgb 8.1 L (13.0-17.5) gm/dL Hct 25.6 L (39.0-53.0) % RDW 18.6 H (11.5-15.5) % Neutrophils # 14.7 H (1.3-7.7) k/uL Monocytes # 1.2 H (0-1.0) k/uL PT (9.0-12.0) sec INR (<1.2) Potassium (3.5-5.1) mmol/L Carbon Dioxide (22-30) mmol/L BUN (9-20) mg/dL Creatinine (0.66-1.25) mg/dL Glucose (74-99) mg/dL POC Glucose (mg/dL) 159 H (75-99) mg/dL Crossmatch See Detail 12/01/19 12/01/19 12/01/19 Range/Units 13:16 17:16 18:38 WBC 18.9 H (3.8-10.6) k/uL RBC 2.98 L (4.30-5.90) m/uL Hgb 7.9 L (13.0-17.5) gm/dL Hct 24.5 L (39.0-53.0) % RDW 18.7 H (11.5-15.5) % Neutrophils # (1.3-7.7) k/uL Monocytes # (0-1.0) k/uL PT (9.0-12.0) sec INR (<1.2) Potassium 3.3 L (3.5-5.1) mmol/L Carbon Dioxide (22-30) mmol/L BUN (9-20) mg/dL Creatinine (0.66-1.25) mg/dL Glucose (74-99) mg/dL POC Glucose (mg/dL) 127 H (75-99) mg/dL Crossmatch 12/01/19 12/01/19 12/02/19 Range/Units 18:38 21:09 04:11 WBC 17.8 H (3.8-10.6) k/uL RBC 3.10 L (4.30-5.90) m/uL Hgb 8.2 L (13.0-17.5) gm/dL Hct 25.9 L (39.0-53.0) % RDW 18.8 H (11.5-15.5) % Neutrophils # (1.3-7.7) k/uL Monocytes # (0-1.0) k/uL PT (9.0-12.0) sec INR (<1.2) Potassium 3.2 L (3.5-5.1) mmol/L Carbon Dioxide 31 H (22-30) mmol/L BUN 120 H* (9-20) mg/dL Creatinine 1.87 H (0.66-1.25) mg/dL Glucose 112 H (74-99) mg/dL POC Glucose (mg/dL) 102 H (75-99) mg/dL Crossmatch 12/02/19 12/02/19 12/02/19 Range/Units 04:11 08:35 10:28 WBC (3.8-10.6) k/uL RBC (4.30-5.90) m/uL Hgb (13.0-17.5) gm/dL Hct (39.0-53.0) % RDW (11.5-15.5) % Neutrophils # (1.3-7.7) k/uL Monocytes # (0-1.0) k/uL PT 13.4 H (9.0-12.0) sec INR 1.3 H (<1.2) Potassium (3.5-5.1) mmol/L Carbon Dioxide 32 H (22-30) mmol/L BUN 113 H* (9-20) mg/dL Creatinine 1.82 H (0.66-1.25) mg/dL Glucose (74-99) mg/dL POC Glucose (mg/dL) 110 H (75-99) mg/dL Crossmatch Assessment and Plan Assessment: 1. Acute exacerbation of chronic congestive heart failure with systolic dysfunction 2. Acute kidney injury likely related to cardiorenal syndrome, diuretic therapy, nephrology is following 3. Acute urinary tract infection, placed on ceftriaxone, urine culture negative 4. Ischemic cardiomyopathy, with EF of less than 20%, status post AICD implantation 5. Diabetes mellitus 6. History of chronic persistent atrial fibrillation on oral anticoagulation 7. History of chronic kidney disease stage III at baseline, history of right hydronephrosis and patient follows with urology 8. Coronary artery disease status post bypass grafting 9. Hypertension 10. Hyperlipidemia 11. History of bladder cancer 12. Acute anemia requiring 4 units of packed red blood cells this admission. EGD today for 2019 revealed an actively bleeding duodenal ulcer in the second portion of the duodenum just distal to the distal duodenal sweep with a visible vessel, status post injection of epinephrine followed by Endo Clip. There were 2 other nonbleeding duodenal ulcers noted as well. Antral erosive gastritis. Plan: The patient was seen and evaluated by Dr. Kingsley EGD results noted Current hemoglobin 8.2 Not requiring any pressors We'll continue to monitor him closely here in the intensive care unit another 24 hours Continue to monitor hemoglobin We'll continue to follow and make further recommendations based on his clinical status I, the cosigning physician, performed a history & physical examination of the patient. Lungs sounds with crackles in the mid and lower lung gibson bilaterally. Maintaining good O2 saturations in the 90s on 2 L/m per nasal c annula. I discussed the assessment and plan of care with my nurse practitioner, Manisha Helton. I attest to the above note as dictated by her. Time with Patient: Greater than 30
[2019-12-02 12:05] LABS: Glucose,Whole Blood 135 mg/dL (75-99)
[2019-12-02] MEDS: CHOLECALCIFEROL 1,000 UNIT TAB PO SCH (12:15)
[2019-12-02] MEDS: FUROSEMIDE 20 MG TAB PO SCH ×2 (12:15→16:05)
[2019-12-02] MEDS: INSULIN DETEMIR (LEVEMIR) 100 UNIT/ML SYR SQ SCH ×2 (12:15→20:44)
[2019-12-02] MEDS: VENLAFAXINE HCL 75 MG TAB PO SCH ×2 (12:17→20:44)
[2019-12-02] MEDS: POTASSIUM CHLORIDE ER 20 MEQ TAB.ER PO SCH ×3 (12:17→18:08)
[2019-12-02] MEDS: CYANOCOBALAMIN 500 MCG TAB PO SCH (12:17)
[2019-12-02 14:59] LABS: Anisocytosis Slight; Basophils % (A) 0 %; Eosinophils # (A) 0.2 k/uL (0-0.7); Eosinophils % (A) 1 %; HCT 22.4 % (39.0-53.0); Hypochromasia Moderate; Lymphocytes # (A) 1.1 k/uL (1.0-4.8); Lymphocytes % (A) 8 %; MCHC 31.3 g/dL (31.0-37.0); Mean Platelet Volume 7.8; Monocytes # (A) 1.2 k/uL (0-1.0); Monocytes % (A) 9 %; Neutrophils % (A) 80 %; Platelet Count 247 k/uL (150-450); Poikilocytosis Marked; RBC 2.69 m/uL (4.30-5.90); RDW 19.3 % (11.5-15.5); WBC 13.8 k/uL (3.8-10.6)
[2019-12-02 15:07] LABS: Calcium 8.7 mg/dL (8.4-10.2); Potassium 3.4 mmol/L (3.5-5.1)
--- NOTE | 2019-12-02 15:54 | P.PN ---
Progress Note - Text Progress Note Date: 12/02/19 Chief Complaint: Shortness of breath Patient is a 79-year-old patient of Dr. Cavanaugh. history of chronic atrial fibrillation on anticoagulation with Eliquis, coronary artery disease status post bypass graft, cardiomyopathy status post AICD placement, history of nephrec araceli and unilateral kidney, CK D stage III, hypertension, hyperlipidemia, GERD, diabetes type 2 and history of bipolar/depression came to ER with complaints of worsening shortness of breath and exertional dyspnea and bilateral lower extremity increases swelling for the past 2 weeks. Patient does have minimal cough without any sputum production. No sputum production. No complaints of fever or chills. Denied any sick contacts at home. No recent travel. Admitted with CHF exacerbation, atrial fibrillation with a rapid ventricular rate. Started on IV Lasixdrip and IV amiodarone.then IV dobutamine was added. Switch to IV Lasix bolus. November 29 patient became hypotensive. Hemoglobin dropped to 4.2. Moved to the ICU. Receive 3 units of blood. Also had some dark stools. Today-. Tired sitting up to chair. Did undergo EGD this morning. Found to have an actively bleeding duodenal ulcer in the second portion of duodenum. Epinephrine injection was given followed by Endo Clip. 2 other nonbleeding duodenal ulcers were found. Review of systems: Was attempted for constitutional, cardiovascular, GI, pulmonary. relevant finding as above Active Medications Atorvastatin Calcium (Lipitor) 80 mg PO HS [facility] Last Admin: 12/01/19 21:08 Dose: 80 mg Documented by: Cholecalciferol (Vitamin D3 (25 Mcg = 1000 Iu)) 2,000 unit PO DAILY [facility] Last Admin: 12/02/19 12:15 Dose: 2,000 unit Documented by: Cyanocobalamin (Vitamin B-12) 1,000 mcg PO DAILY [facility] Last Admin: 12/02/19 12:17 Dose: 1,000 mcg Documented by: Furosemide (Lasix) 40 mg PO BID@0900,1600 [facility] Last Admin: 12/02/19 12:15 Dose: 40 mg Documented by: Potassium Chloride 10 meq/ IV (Solution) 100 mls @ 100 mls/hr IVPB Q1HR RADHA; Protocol Stop: 12/02/19 19:59 Insulin Aspart (Novolog) 0 unit SQ ACHS RADHA; Protocol Last Admin: 12/02/19 12:21 Dose: Not Given Documented by: Insulin Detemir (Levemir) 40 unit SQ HS [facility] Last Admin: 12/01/19 21:08 Dose: 40 unit Documented by: Insulin Detemir (Levemir) 10 unit SQ QAM [facility] Last Admin: 12/02/19 12:15 Dose: 10 unit Documented by: Lamotrigine (Lamictal) 100 mg PO [facility] Last Admin: 12/01/19 21:08 Dose: 100 mg Documented by: Melatonin (Melatonin) 3 mg PO [facility] Last Admin: 12/01/19 21:08 Dose: 3 mg Documented by: Midodrine (Proamatine) 10 mg PO AC-TID [facility] Last Admin: 12/02/19 12:21 Dose: 10 mg Documented by: Ondansetron HCl (Zofran) 4 mg IVP Q6HR PRN PRN Reason: Nausea And Vomiting Last Admin: 11/24/19 16:43 Dose: 4 mg Documented by: Pantoprazole Sodium (Protonix) 40 mg IVP BID [facility] Last Admin: 12/02/19 08:46 Dose: 40 mg Documented by: Potassium Chloride (K-Dur 20) 20 meq PO DAILY [facility] Last Admin: 12/02/19 12:17 Dose: 20 meq Documented by: Venlafaxine HCl (Effexor) 75 mg PO BID [facility] Last Admin: 12/02/19 12:17 Dose: 75 mg Documented by: On examination: VITAL SIGNS: 98.2, 92, 17, 109/58, 98% on 2 L GENERAL APPEARANCE: Sitting up in a chair, tired, sleepy HEENT: Normal external appearance of nose and ear. Oral cavity dry EYES: Pupils equal. Conjunctiva pale. NECK: JVD unable to assess Mass not palpable. RESPIRATORY: Respiratory effort increased. Decreased breath sounds. CARDIOVASCULAR: Heart sounds irregular, edema decreased ABDOMEN: Soft. Liver and spleen not palpable. No tenderness. No mass palpable. Bansal catheter-hematuria cleared PSYCHIATRY: Answering questions INVESTIGATIONS, reviewed in the clinical context: White count 13.8 hemoglobin 7 progression 3.4 106 creatinine 1.69 EGD/December 01/-bleeding duodenal ulcer that was given epinephrine and Endo Clip. 2 other duodenal ulcers nonbleeding. Previous testing: White count 8.2 hemoglobin 10.6 potassium 5.2 bun 52 creatinine 2.0 troponin I 0.0-3 EKG-possible A. fib Chest x-ray film personally reviewed by me-pulmonary edema cardiomegaly BUN/creatinine on October 07 Assessment: -Acute on chronic congestive heart failure exacerbation from systolic dysfunction, EF less than 30% -Bleeding duodenal ulcer given epinephrine injection with Endo Clip. 2 other nonbleeding duodenal ulcers -Acute blood loss anemia-black tarry stools, from above-requiring a total of 4 units of blood -Severe hypokalemia from diuresis, better -Hypotension multifactorial Ischemic cardiomyopathy Persistent atrial fibrillation on anticoagulation with Eliquis, rate better controlled Acute kidney injury secondary to cardiorenal syndrome, -chronic kidney disease stage III. Mild hyperkalemia secondary to acute kidney injury Lactic acidosis-type II History of nephrectomy due to renal cancer and bladder cancer history Diabetes type 2. Insulin-dependent and also on metformin and glipizide. Hyperlipidemia Coronary artery disease with history of multiple stents placement Bipolar disorder and depression GERD Obesity with BMI 34.9 - Plan: Patient received a total of 4 units of blood. EGD findings as above. Repeat hemoglobin in the morning. Diet as per GI.
[2019-12-02] MEDS ORDERED: POTASSIUM CHLORIDE 10 MEQ in WATER FOR INJECTION 1 100ML.BAG IVPB SCH (16:00)
[2019-12-02 17:46] LABS: Glucose,Whole Blood 154 mg/dL (75-99)
[2019-12-02 20:38] LABS: Glucose,Whole Blood 204 mg/dL (75-99)
[2019-12-02] MEDS: MELATONIN 3 MG TABLET PO SCH (20:44)
[2019-12-02] MEDS: lamoTRIgine 100 MG TAB PO SCH (20:44)
[2019-12-02] MEDS: ATORVASTATIN 80 MG TAB PO SCH (20:44)
[2019-12-02 22:32] LABS: Anisocytosis Slight; HCT 22.8 % (39.0-53.0); HGB 7.2 gm/dL (13.0-17.5); Hypochromasia Moderate; MCH 26.5 pg (25.0-35.0); MCHC 31.6 g/dL (31.0-37.0); MCV 83.6 fL (80.0-100.0); Mean Platelet Volume 8.1; Platelet Count 230 k/uL (150-450); Poikilocytosis Moderate; RBC 2.73 m/uL (4.30-5.90); RDW 19.4 % (11.5-15.5); WBC 15.1 k/uL (3.8-10.6)
[2019-12-03 04:57] LABS: Anisocytosis Slight; HCT 22.4 % (39.0-53.0); Hypochromasia Moderate; MCH 26.1 pg (25.0-35.0); MCHC 30.9 g/dL (31.0-37.0); MCV 84.5 fL (80.0-100.0); Mean Platelet Volume 7.8; Platelet Count 233 k/uL (150-450); Poikilocytosis Moderate; RBC 2.64 m/uL (4.30-5.90); RDW 19.7 % (11.5-15.5); WBC 12.7 k/uL (3.8-10.6)
[2019-12-03 05:20] LABS: Calcium 8.7 mg/dL (8.4-10.2); Potassium 3.3 mmol/L (3.5-5.1)
[2019-12-03 05:25] LABS: HGB 6.9 gm/dL (13.0-17.5)
[2019-12-03] MEDS: POTASSIUM CHLORIDE ER 20 MEQ TAB.ER PO SCH ×3 (06:40→08:37)
[2019-12-03] MEDS: MIDODRINE 5 MG TAB PO SCH ×3 (06:49→17:09)
[2019-12-03] MEDS: INSULIN ASPART (NovoLOG) 100 UNIT/ML VIAL SQ SCH ×4 (06:49→20:49)
[2019-12-03] MEDS: CARVEDILOL 3.125 MG TAB PO SCH ×2 (06:49→17:09)
[2019-12-03] MEDS ORDERED: FUROSEMIDE 10 MG/ML 4 ML VIAL IV ONE (08:30)
[2019-12-03 08:31] LABS: Glucose,Whole Blood 105 mg/dL (75-99)
--- NOTE | 2019-12-03 08:33 | P.PN ---
Subjective Progress Note Date: 12/03/19 This is an 79-year-old male, seen in consultation because of cardiorenal syndrome with significant cardiomyopathy ejection fraction 25% atrial fibrillation chronic heart failure was admitted with worsening shortness of breath. He also had significant anemia and blood loss. He is being transfused Admission creatinine on 11/19/2019 was 2.7 on 11/22/2019 and then started to improve and is currently on 1.82 and further down to 1.76 this morning. He has responded very well with 4500 mL of urine He has a kidney mass on the right and atrophy and previously has had hydronephrosis. Patient is on midodrine, blood pressure in the 110s systolic to 120 systolic heart rate in the 80-90 Currently he is awake alert and responds and follows commands. He is on O2 nasal cannula and is comfortable. His atrial fibrillation. Not on pressors Objective - Vital Signs Vital signs: Vital Signs Temp 96.2 F L 12/03/19 07:07 Pulse 93 12/03/19 07:07 Resp 14 12/03/19 07:07 BP 124/77 12/03/19 07:07 Pulse Ox 99 12/03/19 07:07 Intake & Output 12/02/19 12/03/19 12/03/19 18:59 06:59 18:59 Intake Total 1000 300 Output Total 2500 2000 150 Balance -1500 -1700 -150 Intake: IV 200 Oral 800 300 Blood Product 0 Rc As-1 Unit 0 [id number] Output: Urine 2500 2000 150 Other: Voiding Method Indwelling Catheter Indwelling Catheter Indwelling Catheter # Bowel Movements 1 Exam general awake alert oriented but weak and tired. HEENT exam no JVP neck is supple no facial asymmetry Lungs are significant for bilateral fine crackles with good air entry bilaterally Heart sounds are unremarkable. Ventricular fibrillation Abdomen soft nontender Extremity exam was 2+ edema. Logically awake alert oriented but very tired and weak - Labs CBC & Chem 7: 12/03/19 03:58 12/03/19 03:58 Labs: Abnormal Lab Results - Last 24 Hours (Table) 11/30/19 12/02/19 12/02/19 Range/Units 09:12 08:35 10:28 WBC (3.8-10.6) k/uL RBC (4.30-5.90) m/uL Hgb (13.0-17.5) gm/dL Hct (39.0-53.0) % MCHC (31.0-37.0) g/dL RDW (11.5-15.5) % Neutrophils # (1.3-7.7) k/uL Monocytes # (0-1.0) k/uL PT 13.4 H (9.0-12.0) sec INR 1.3 H (<1.2) Potassium (3.5-5.1) mmol/L Carbon Dioxide (22-30) mmol/L BUN (9-20) mg/dL Creatinine (0.66-1.25) mg/dL Glucose (74-99) mg/dL POC Glucose (mg/dL) 110 H (75-99) mg/dL Crossmatch See Detail 12/02/19 12/02/19 12/02/19 Range/Units 12:04 14:21 14:21 WBC 13.8 H (3.8-10.6) k/uL RBC 2.69 L (4.30-5.90) m/uL Hgb 7.0 L (13.0-17.5) gm/dL Hct 22.4 L (39.0-53.0) % MCHC (31.0-37.0) g/dL RDW 19.3 H (11.5-15.5) % Neutrophils # 11.0 H (1.3-7.7) k/uL Monocytes # 1.2 H (0-1.0) k/uL PT (9.0-12.0) sec INR (<1.2) Potassium 3.4 L (3.5-5.1) mmol/L Carbon Dioxide 32 H (22-30) mmol/L BUN 106 H* (9-20) mg/dL Creatinine 1.69 H (0.66-1.25) mg/dL Glucose 132 H (74-99) mg/dL POC Glucose (mg/dL) 135 H (75-99) mg/dL Crossmatch 12/02/19 12/02/19 12/02/19 Range/Units 17:44 20:36 22:10 WBC 15.1 H (3.8-10.6) k/uL RBC 2.73 L (4.30-5.90) m/uL Hgb 7.2 L (13.0-17.5) gm/dL Hct 22.8 L (39.0-53.0) % MCHC (31.0-37.0) g/dL RDW 19.4 H (11.5-15.5) % Neutrophils # (1.3-7.7) k/uL Monocytes # (0-1.0) k/uL PT (9.0-12.0) sec INR (<1.2) Potassium (3.5-5.1) mmol/L Carbon Dioxide (22-30) mmol/L BUN (9-20) mg/dL Creatinine (0.66-1.25) mg/dL Glucose (74-99) mg/dL POC Glucose (mg/dL) 154 H 204 H (75-99) mg/dL Crossmatch 12/03/19 12/03/19 Range/Units 03:58 03:58 WBC 12.7 H (3.8-10.6) k/uL RBC 2.64 L (4.30-5.90) m/uL Hgb 6.9 L* (13.0-17.5) gm/dL Hct 22.4 L (39.0-53.0) % MCHC 30.9 L (31.0-37.0) g/dL RDW 19.7 H (11.5-15.5) % Neutrophils # (1.3-7.7) k/uL Monocytes # (0-1.0) k/uL PT (9.0-12.0) sec INR (<1.2) Potassium 3.3 L (3.5-5.1) mmol/L Carbon Dioxide 37 H (22-30) mmol/L BUN 96 H (9-20) mg/dL Creatinine 1.76 H (0.66-1.25) mg/dL Glucose 71 L (74-99) mg/dL POC Glucose (mg/dL) (75-99) mg/dL Crossmatch Assessment and Plan Assessment: Impression 1. Acute kidney injury secondary to cardiorenal syndrome improving with diuretics, urine output is 4500 mL creatinine is improved to 1.8, further to 1.7 2. Chronic kidney disease, stage III with a creatinine 1.2, GFR elevated in the 40s to 50s 3. Mild metabolic alkalosis, secondary to diuresis. Bicarb is up from 32-37 4. Anemia of GI blood loss, EGD done yesterday 12/02/2019 showed a)Actively bleeding duodenal ulcer in the second portion of the duodenum just distal to the duodenal sweep with a visible vessel status post injection epinephrine followed by Endo Clip placement as described above. b)2 other nonbleeding duodenal ulcers noted in the duodenal bulb and duodenal sweep with a clean base c)Antral erosive gastritis. Recommendation 1. Maintain Lasix and would slow down as his having more metabolic alkalosis. Recommend 20 mg twice a day by mouth 2. Maintain midodrine 3. Watch metabolic alkalosis 5. Transfuse as needed
[2019-12-03] MEDS: VENLAFAXINE HCL 75 MG TAB PO SCH ×2 (08:36→20:26)
[2019-12-03] MEDS: CHOLECALCIFEROL 1,000 UNIT TAB PO SCH (08:37)
[2019-12-03] MEDS: CYANOCOBALAMIN 500 MCG TAB PO SCH (08:37)
[2019-12-03] MEDS: PANTOPRAZOLE 40 MG/10 ML VIAL IVP SCH ×2 (08:38→20:25)
--- NOTE | 2019-12-03 08:48 | PN ---
PROGRESS NOTE Tr Bhakta underwent endoscopy yesterday. There was a significant bleeding duodenal ulcer which was cauterized and clipped. He is doing well today. Hemoglobin again came down to 6.9, probably as a result of ongoing bleeding yesterday. He is receiving a unit of blood. He is in atrial fib, rate is controlled. He has ischemic cardiomyopathy with a biventricular ICD. I am recommending Coreg 3.125 mg b.i.d., decrease the Lasix to 40 mg in the morning, 20 in the afternoon and leave him on losartan at 25 mg at bedtime. His blood pressure is decent. Urine output is fairly good. S1-S1 S2 heard normally. Regular rate and rhythm noted. Short systolic murmur noted. Lungs revealed improved air entry. Abdomen is soft. Lower extremity edema has improved. Prognosis remains guarded. Hemoglobin will be followed closely and we will check his CBC and BMP as well. MMODL / IJN: [id number] /
[2019-12-03] MEDS: INSULIN DETEMIR (LEVEMIR) 100 UNIT/ML SYR SQ SCH ×2 (09:18→20:48)
[2019-12-03] MEDS: SPIRONOLACTONE 25 MG TAB PO SCH (09:48)
[2019-12-03] MEDS: FUROSEMIDE 40 MG TAB PO SCH (09:48)
[2019-12-03] MEDS ORDERED: POTASSIUM CHLORIDE ER 20 MEQ TAB.ER PO SCH (10:00)
--- NOTE | 2019-12-03 11:08 | P.PN ---
Subjective Progress Note Date: 12/03/19 Principal diagnosis: Exertional dyspnea, anasarca This is an 79-year-old male patient of Dr. Cavanaugh, with known history of severe ischemic cardiomyopathy, and ejection fraction of less than 20%, status post AICD placement, hypertension, diabetes mellitus, hyperlipidemia, persistent atrial fibrillation, coronary artery disease status post bypass grafting, ex- smoker, chronic congestive heart failure with systolic dysfunction, history of kidney and bladder cancer status post chemo and radiation, who presented to the emergency department on 11/19/2019 with complaints of worsening exertional dyspnea, and increased swelling in his lower extremities. He denied any chest pain, palpitations, no fever or chills, no nausea vomiting, no diaphoresis, no cough or phlegm production. Admission chest x-ray showed creased vascular congestion, and pulmonary edema and a small left pleural effusion. Admission blood work was negative for any leukocytosis, white blood cell count was 8.2, hemoglobin is 10.6, mild lymphopenia, INR is 1.3, potassium is 5.2, the rest of the electrolytes were within normal limits, BUN is 52 creatinine is 2.0, patient does have history of chronic kidney disease stage III, this showed signs of infection although patient denies any symptoms, troponins were 0.031, 0.026, 0.031, proBNP was 2710. We were asked to see the patient in consultation. Patient has been started on infusion of Lasix, early infusing at a rate of 10 mg per hour, and dobutamine drip infusing at 5 mics per kilo per minute. A is on oral Eliquis for history of chronic atrial fibrillation he remains in A. fib with a controlled rate of 93 bpm. He is sitting up in the recliner, in no acute distress, on 4 L of oxygen with a pulse ox of 95-98%, he is been afebrile, he has not diuresed significantly despite the Lasix infusion, and today's blood work shows worsening of his renal profile would be on up to 79 and creatinine is up to 2.7. Nephrology is following. The patient is seen today 12/02/2019 in follow-up in the intensive care unit. He is currently awake and alert in no acute distress. Maintaining O2 saturations up to 100% on 2 L/m per nasal cannula. He's been afebrile. Hemodynamically stable. He was transferred to the intensive care unit for severe anemia. He is now status post 4 units packed red blood cells. He did undergo EGD this morning. He was found to have actively bleeding duodenal ulcer in the second portion of the duodenum just distal to the duodenal sweep with a visible vessel status post injection epinephrine followed by Endo Clip placemen t. Two other nonbleeding duodenal ulcers noted in the duodenal bulb. Antral erosive gastritis. He remains on Protonix 40 mg twice a day. Continue to monitor hemoglobin and transfuse as needed. White count 17.8. Hemoglobin 8.2. Platelet count 271. INR 1.3. Sodium 143. Potassium 4.0. Creatinine 1.82. He is on oral diuretics now. Remaining in a negative balance. The patient is seen today 12/03/2019 in follow-up in the intensive care unit. He is currently awake and alert in no acute distress. Sitting up in a chair at the bedside. Maintaining O2 saturations at 100% on 2 L/m per nasal cannula. He remains in A. fib. Controlled ventricular response. He's been afebrile. Hemoglobin did drop to 6.9 again today. White count 12.7. Platelets 233. Sodium 142. Potassium 3.3. Bicarb 37. Creatinine 1.76. Receiving his fifth unit of blood this admission. Remains on Protonix 40 mg IV twice a day. On oral diuretics now. Objective - Vital Signs Vital signs: Vital Signs Temp 97.8 F 12/03/19 09:20 Pulse 62 12/03/19 10:00 Resp 15 12/03/19 10:00 BP 94/50 12/03/19 10:00 Pulse Ox 100 12/03/19 10:00 Intake & Output 12/02/19 12/03/19 12/03/19 18:59 06:59 18:59 Intake Total 1000 300 770 Output Total 2500 2000 650 Balance -1500 -1700 120 Intake: IV 200 Oral 800 300 150 Blood Product 0 620 Rc As-1 Unit 0 310 [id number] Output: Urine 2500 2000 650 Other: Voiding Method Indwelling Catheter Indwelling Catheter Indwelling Catheter # Bowel Movements 1 - Exam GENERAL EXAM: Alert, 79-year-old gentleman, awake and alert, on 2 L nasal cannula with an O2 saturation of 100%, comfortable in no apparent distress. HEAD: Normocephalic. EYES: Normal reaction of pupils, equal size. NOSE: Clear with pink turbinates. THROAT: No erythema or exudates. NECK: No masses, no JVD. CHEST: No chest wall deformity. LUNGS: Equal air entry with crackles through the mid lung gibson and lower lung gibson. CVS: S1 and S2 normal with no audible murmur, irregular rhythm. ABDOMEN: No hepatosplenomegaly, normal bowel sounds, no guarding or rigidity. SPINE: No scoliosis or deformity SKIN: No rashes CENTRAL NERVOUS SYSTEM: No focal deficits, tone is normal in all 4 extremities. EXTREMITIES: There is 1-2+ peripheral edema. No clubbing, no cyanosis. Peripheral pulses are intact. - Labs CBC & Chem 7: 12/03/19 03:58 12/03/19 03:58 Labs: Abnormal Lab Results - Last 24 Hours (Table) 11/30/19 12/02/19 12/02/19 Range/Units 09:12 12:04 14:21 WBC (3.8-10.6) k/uL RBC (4.30-5.90) m/uL Hgb (13.0-17.5) gm/dL Hct (39.0-53.0) % MCHC (31.0-37.0) g/dL RDW (11.5-15.5) % Neutrophils # (1.3-7.7) k/uL Monocytes # (0-1.0) k/uL Potassium 3.4 L (3.5-5.1) mmol/L Carbon Dioxide 32 H (22-30) mmol/L BUN 106 H* (9-20) mg/dL Creatinine 1.69 H (0.66-1.25) mg/dL Glucose 132 H (74-99) mg/dL POC Glucose (mg/dL) 135 H (75-99) mg/dL Crossmatch See Detail 12/02/19 12/02/19 12/02/19 Range/Units 14:21 17:44 20:36 WBC 13.8 H (3.8-10.6) k/uL RBC 2.69 L (4.30-5.90) m/uL Hgb 7.0 L (13.0-17.5) gm/dL Hct 22.4 L (39.0-53.0) % MCHC (31.0-37.0) g/dL RDW 19.3 H (11.5-15.5) % Neutrophils # 11.0 H (1.3-7.7) k/uL Monocytes # 1.2 H (0-1.0) k/uL Potassium (3.5-5.1) mmol/L Carbon Dioxide (22-30) mmol/L BUN (9-20) mg/dL Creatinine (0.66-1.25) mg/dL Glucose (74-99) mg/dL POC Glucose (mg/dL) 154 H 204 H (75-99) mg/dL Crossmatch 12/02/19 12/03/19 12/03/19 Range/Units 22:10 03:58 03:58 WBC 15.1 H 12.7 H (3.8-10.6) k/uL RBC 2.73 L 2.64 L (4.30-5.90) m/uL Hgb 7.2 L 6.9 L* (13.0-17.5) gm/dL Hct 22.8 L 22.4 L (39.0-53.0) % MCHC 30.9 L (31.0-37.0) g/dL RDW 19.4 H 19.7 H (11.5-15.5) % Neutrophils # (1.3-7.7) k/uL Monocytes # (0-1.0) k/uL Potassium 3.3 L (3.5-5.1) mmol/L Carbon Dioxide 37 H (22-30) mmol/L BUN 96 H (9-20) mg/dL Creatinine 1.76 H (0.66-1.25) mg/dL Glucose 71 L (74-99) mg/dL POC Glucose (mg/dL) (75-99) mg/dL Crossmatch 12/03/19 Range/Units 08:30 WBC (3.8-10.6) k/uL RBC (4.30-5.90) m/uL Hgb (13.0-17.5) gm/dL Hct (39.0-53.0) % MCHC (31.0-37.0) g/dL RDW (11.5-15.5) % Neutrophils # (1.3-7.7) k/uL Monocytes # (0-1.0) k/uL Potassium (3.5-5.1) mmol/L Carbon Dioxide (22-30) mmol/L BUN (9-20) mg/dL Creatinine (0.66-1.25) mg/dL Glucose (74-99) mg/dL POC Glucose (mg/dL) 105 H (75-99) mg/dL Crossmatch Assessment and Plan Assessment: 1. Acute exacerbation of chronic congestive heart failure with systolic dysfunction 2. Acute anemia requiring 4 units of packed red blood cells this admission. EGD performed on 12/02/2019 revealed an actively bleeding duodenal ulcer in the second portion of the duodenum just distal to the distal duodenal sweep with a visible vessel, status post injection of epinephrine followed by Endo Clip. There were 2 other nonbleeding duodenal ulcers noted as well. Antral erosive gastritis. Another drop in hemoglobin today 12/03/2019 to 6.9. Receiving his fifth unit of packed blood cells. 3. Acute kidney injury likely related to cardiorenal syndrome, diuretic therapy, nephrology is following 4. Acute urinary tract infection, placed on ceftriaxone, urine culture negative 5. Ischemic cardiomyopathy, with EF of less than 20%, status post AICD implantation 6. History of chronic persistent atrial fibrillation on oral anticoagulation 7. History of chronic kidney disease stage III at baseline, history of right hydronephrosis and patient follows with urology 8. Coronary artery disease status post bypass grafting 9. Hypertension 10. Hyperlipidemia 11. History of bladder cancer 12. Diabetes mellitus Plan: The patient was seen and evaluated by Dr. Kingsley Current hemoglobin 6.9 and receiving his fifth unit of packed red blood cells this admission Continue to monitor hemoglobin Transfer out to selective care unit today We'll continue to follow and make further recommendations based on his clinical status I, the cosigning physician, performed a history & physical examination of the patient. Lungs sounds with crackles in the mid and lower lung gibson bilaterally. Maintaining good O2 saturations in the 90s on 2 L/m per nasal cannula. I discussed the assessment and plan of care with my nurse pract shanta, Manisha Helton. I attest to the above note as dictated by her.
--- NOTE | 2019-12-03 11:15 | PN ---
PROGRESS NOTE DATE OF DICTATION: 12/03/2019 The patient is an 79-year-old, pleasant, white male admitted to the hospital with exacerbation of congestive heart failure, chronic renal insufficiency, and has been in the intensive care unit for the last six days. He underwent an upper endoscopy for significant drop in hemoglobin and black, tarry stools. Upper endoscopy revealed multiple duodenal ulcers, one of which had active bleeding, status post injection of epinephrine and Endoclip placement. The patient says that he is doing well. He had no further episodes of bleeding. He dropped his hemoglobin to 6.8 g/dL this morning and is receiving another unit of blood transfusion. Overall, he is feeling better. He reports no abdominal pain. PHYSICAL EXAMINATION: Appears comfortable. No apparent distress. VITAL SIGNS: Stable. Blood pressure 93/64, pulse rate 69, temperature 97.8. HEENT: Unremarkable. Conjunctivae pale. Sclerae anicteric. Oral cavity, no lesions. NECK: No JVD or lymph node enlargement. CHEST: Clear to auscultation. HEART: Regular rate and rhythm. ABDOMEN: Soft, nontender, nondistended. Bowel sounds are positive. No organomegaly. EXTREMITIES: No pedal edema. NEUROLOGIC: He is alert and oriented x3. No focal deficits. LABS: BUN 96, creatinine 1.76. WBC 12.7, hemoglobin 6.9, platelets are 233. IMPRESSION: 1. Acute upper GI bleed, status post EGD yesterday that revealed multiple duodenal ulcers, one of which had active bleeding, status post injection of epinephrine and Endoclip placement and clinically doing well. No further bleeding since yesterday. He has received a total of 4 units of PRBC transfusion. This morning hemoglobin was 6.9. He is receiving the fifth unit of blood transfusion. Hemodynamically stable. 2. History of cardiomyopathy, status post AICD implantation. 3. Chronic kidney disease stage 3. Nephrology following the patient closely. 4. Congestive heart failure, improving. 5. History of diabetes mellitus. 6. Hypertension. RECOMMENDATIONS: 1. Continue with Protonix 40 mg q.12 hours. 2. Monitor CBC every 12 hours and transfuse if needed. 3. Continue with clear liquid diet today. 4. If hemoglobin remains stable, we will tomorrow. 5. Continue to hold off anticoagulation. We will follow with you closely. Thank you for this consultation. MMODL / IJN: [id number] /
[2019-12-03 12:18] LABS: Anisocytosis Slight; HCT 25.6 % (39.0-53.0); HGB 8.1 gm/dL (13.0-17.5); Hypochromasia Moderate; MCH 27.1 pg (25.0-35.0); MCHC 31.8 g/dL (31.0-37.0); MCV 85.2 fL (80.0-100.0); Mean Platelet Volume 8.1; Platelet Count 231 k/uL (150-450); Poikilocytosis Moderate; RBC 3.01 m/uL (4.30-5.90); RDW 18.6 % (11.5-15.5)
[2019-12-03 12:56] LABS: Eosinophils # (M) 0.45 k/uL (0-0.7); Neutrophils # (M) 8.36 k/uL (1.3-7.7); Neutrophils % (M) 74 %; Nucleated Red Blood Cells 2 /100 WBC (0-0); Total Cells Counted 200; WBC 11.3 k/uL (3.8-10.6)
[2019-12-03 12:57] LABS: Polychromasia Present
[2019-12-03 14:18] LABS: Glucose,Whole Blood 78 mg/dL (75-99)
--- NOTE | 2019-12-03 15:30 | P.PN ---
Progress Note - Text Progress Note Date: 12/03/19 Chief Complaint: Shortness of breath Patient is a 79-year-old patient of Dr. Cavanaugh. history of chronic atrial fibrillation on anticoagulation with Eliquis, coronary artery disease status post bypass graft, cardiomyopathy status post AICD placement, history of nephrec araceli and unilateral kidney, CK D stage III, hypertension, hyperlipidemia, GERD, diabetes type 2 and history of bipolar/depression came to ER with complaints of worsening shortness of breath and exertional dyspnea and bilateral lower extremity increases swelling for the past 2 weeks. Patient does have minimal cough without any sputum production. No sputum production. No complaints of fever or chills. Denied any sick contacts at home. No recent travel. Admitted with CHF exacerbation, atrial fibrillation with a rapid ventricular rate. Started on IV Lasixdrip and IV amiodarone.then IV dobutamine was added. Switch to IV Lasix bolus. November 29 patient became hypotensive. Hemoglobin dropped to 4.2. Moved to the ICU. Also had some dark stools. EGD on December 01- Found to have an actively bleeding duodenal ulcer in the second portion of duodenum. Epinephrine injection was given followed by Endo Clip. 2 other nonbleeding duodenal ulcers were found. Since admission received a total of 5 units of blood. Today-. ICU: Started on clear liquid diet. No further bleeding. Tired. Review of systems: Was attempted for constitutional, cardiovascular, GI, pulmonary. relevant finding as above Active Medications Atorvastatin Calcium (Lipitor) 80 mg PO HS [facility] Last Admin: 12/02/19 20:44 Dose: 80 mg Documented by: Carvedilol (Coreg) 3.125 mg PO BID-W/MEALS [facility] Last Admin: 12/03/19 06:49 Dose: 3.125 mg Documented by: Cholecalciferol (Vitamin D3 (25 Mcg = 1000 Iu)) 2,000 unit PO DAILY [facility] Last Admin: 12/03/19 08:37 Dose: 2,000 unit Documented by: Cyanocobalamin (Vitamin B-12) 1,000 mcg PO DAILY [facility] Last Admin: 12/03/19 08:37 Dose: 1,000 mcg Documented by: Furosemide (Lasix) 40 mg PO DAILY [facility] Last Admin: 12/03/19 09:48 Dose: 40 mg Documented by: Furosemide (Lasix) 20 mg PO DAILY@1700 [facility] Insulin Aspart (Novolog) 0 unit SQ ACHS [facility]; Protocol Last Admin: 12/03/19 14:59 Dose: Not Given Documented by: Insulin Detemir (Levemir) 40 unit SQ [facility] Last Admin: 12/02/19 20:44 Dose: 40 unit Documented by: Insulin Detemir (Levemir) [facility] [place] Admin: 12/03/19 09:18 Dose: Not Given Documented by: Lamotrigine (Lamictal) 100 mg PO [facility] Last Admin: 12/02/19 20:44 Dose: 100 mg Documented by: Losartan Potassium (Cozaar) 25 mg PO [facility] Melatonin (Melatonin) 3 mg PO [facility] Last Admin: 12/02/19 20:44 Dose: 3 mg Documented by: Midodrine (Proamatine) 10 mg PO AC-TID [facility] Last Admin: 12/03/19 06:49 Dose: 10 mg Documented by: Ondansetron HCl (Zofran) 4 mg IVP Q6HR PRN PRN Reason: Nausea And Vomiting Last Admin: 11/24/19 16:43 Dose: 4 mg Documented by: Pantoprazole Sodium (Protonix) 40 mg IVP BID [facility] Last Admin: 12/03/19 08:38 Dose: 40 mg Documented by: Potassium Chloride (K-Dur 20) 20 meq PO DAILY [facility] Last Admin: 12/03/19 08:37 Dose: 20 meq Documented by: Spironolactone (Aldactone) 25 mg PO DAILY [facility] Last Admin: 12/03/19 09:48 Dose: 25 mg Documented by: Venlafaxine HCl (Effexor) 75 mg PO BID [facility] Last Admin: 12/03/19 08:36 Dose: 75 mg Documented by: On examination: VITAL SIGNS: 97.8, 69, 15, 93/64, 100% on 2 L GENERAL APPEARANCE: Propped up in bed,, tired, HEENT: Normal external appearance of nose and ear. Oral cavity dry EYES: Pupils equal. Conjunctiva pale. NECK: JVD unable to assess Mass not palpable. RESPIRATORY: Respiratory effort increased. Decreased breath sounds. CARDIOVASCULAR: Heart sounds irregular, edema decreased ABDOMEN: Soft. Liver and spleen not palpable. No tenderness. No mass palpable. Bansal catheter-hematuria cleared PSYCHIATRY: Answering questions INVESTIGATIONS, reviewed in the clinical context: White count 11.3 hemoglobin 8.1 Previous testing: White count 8.2 hemoglobin 10.6 potassium 5.2 bun 52 creatinine 2.0 troponin I 0.0-3 EKG-possible A. fib Chest x-ray film personally reviewed by me-pulmonary edema cardiomegaly BUN/creatinine on October 07-.58 EGD/December 01/-bleeding duodenal ulcer that was given epinephrine and Endo Clip. 2 other duodenal ulcers nonbleeding. Assessment: -Acute on chronic congestive heart failure exacerbation from systolic dysfunction, EF less than 30% -Bleeding duodenal ulcer given epinephrine injection with Endo Clip. 2 other nonbleeding duodenal ulcers -Acute blood loss anemia-black tarry stools, from above-requiring a total of 5 units of blood -Severe hypokalemia from diuresis, better -Hypotension multifactorial Ischemic cardiomyopathy Persistent atrial fibrillation on anticoagulation with Eliquis, rate better controlled Acute kidney injury secondary to cardiorenal syndrome, -chronic kidney disease stage III. Mild hyperkalemia secondary to acute kidney injury Lactic acidosis-type II History of nephrectomy due to renal cancer and bladder cancer history Diabetes type 2. Insulin-dependent and also on metformin and glipizide. Hyperlipidemia Coronary artery disease with history of multiple stents placement Bipolar disorder and depression GERD Obesity with BMI 34.9 - Plan: Started on clear liquid diet. Advance diet as tolerated. Keep a close eye on the hemoglobin. can be moved out of the ICU.
[2019-12-03 16:47] LABS: Glucose,Whole Blood 120 mg/dL (75-99)
[2019-12-03] MEDS: FUROSEMIDE 20 MG TAB PO SCH (17:09)
[2019-12-03 20:09] LABS: Anisocytosis Slight; Basophils % (A) 0 %; Eosinophils # (A) 0.4 k/uL (0-0.7); Eosinophils % (A) 4 %; HCT 23.5 % (39.0-53.0); HGB 7.4 gm/dL (13.0-17.5); Hypochromasia Marked; Lymphocytes % (A) 10 %; MCH 26.8 pg (25.0-35.0); MCHC 31.6 g/dL (31.0-37.0); Mean Platelet Volume 7.8; Monocytes # (A) 0.9 k/uL (0-1.0); Monocytes % (A) 9 %; Neutrophils % (A) 74 %; Platelet Count 219 k/uL (150-450); Poikilocytosis Moderate; RBC 2.77 m/uL (4.30-5.90); RDW 18.3 % (11.5-15.5); WBC 9.5 k/uL (3.8-10.6)
[2019-12-03] MEDS: ATORVASTATIN 80 MG TAB PO SCH (20:25)
[2019-12-03] MEDS: lamoTRIgine 100 MG TAB PO SCH (20:25)
[2019-12-03] MEDS: MELATONIN 3 MG TABLET PO SCH (20:26)
[2019-12-03 20:55] LABS: Glucose,Whole Blood 140 mg/dL (75-99)
[2019-12-03 21:16] LABS: Polychromasia Present
[2019-12-03] MEDS: LOSARTAN 25 MG TAB PO SCH (21:24)
[2019-12-04 04:56] LABS: Anisocytosis Slight; Calcium 8.7 mg/dL (8.4-10.2); HCT 24.5 % (39.0-53.0); HGB 7.5 gm/dL (13.0-17.5); Hypochromasia Moderate; MCHC 30.5 g/dL (31.0-37.0); MCV 85.1 fL (80.0-100.0); Mean Platelet Volume 8.3; Platelet Count 207 k/uL (150-450); Poikilocytosis Moderate; Potassium 3.4 mmol/L (3.5-5.1); RBC 2.88 m/uL (4.30-5.90); RDW 18.7 % (11.5-15.5); WBC 8.7 k/uL (3.8-10.6)
[2019-12-04 05:18] LABS: Eosinophils # (M) 0.17 k/uL (0-0.7); Lymphocytes # (M) 0.61 k/uL (1.0-4.8); Monocytes # (M) 0.87 k/uL (0-1.0); Neutrophils # (M) 7.05 k/uL (1.3-7.7); Neutrophils % (M) 81 %; Nucleated Red Blood Cells 0 /100 WBC (0-0); Total Cells Counted 100
[2019-12-04 05:19] LABS: Anisocytosis (M) Present; Poikilocytosis (M) Present; Polychromasia Present
[2019-12-04 06:45] LABS: Glucose,Whole Blood 105 mg/dL (75-99)
--- NOTE | 2019-12-04 07:39 | PN ---
PROGRESS NOTE Mr. Bhakta is an 79-year-old male with a history of atrial fibrillation who presented with evidence of anemia and bleeding. He has a history of severe ischemic cardiomyopathy, status post ICD implant, history of hypertension, hyperlipidemia, and coronary bypass grafting. He was transfused 1 unit of blood yesterday. He is feeling better this morning. His breathing is stable. He denies any chest pain. He denies any dizziness or palpitation. His blood pressure is on the lower side. He denies any nausea or vomiting. He continues to be on Coreg 3.125 mg twice a day, Lasix 40 in the morning 20 in the afternoon, insulin, losartan 25 mg daily, Protonix and spironolactone 25 mg daily in addition to Lipitor 80 mg daily. PHYSICAL EXAMINATION: Blood pressure running in the 80s to 100 with a heart rate in 60s. LUNGS: No wheezes. HEART: Irregular, irregular, S1, S2. No S3 with systolic murmur. ABDOMEN: Soft, nontender. EXTREMITIES: 1+ edema bilaterally. LAB DATA: Lab data revealed a hemoglobin of 7.5, BUN and creatinine 73 and 1.62, which has improved compared to yesterday. IMPRESSION: 1. Anemia. The patient got transfused yesterday with prior episode of active bleeding. 2. Exacerbation of congestive heart failure with known history of severe ischemic cardiomyopathy. 3. Acute renal kidney injury. 4. Status post ICD implantation. 5. History of chronic persistent atrial fibrillation not anticoagulated at this time. 6. Status post coronary artery bypass grafting. 7. Hypertension. 8. Hyperlipidemia. RECOMMENDATION: Since his blood pressure is on the lower side, I will switch him to metoprolol tartrate 12.5 mg twice a day. Continue rest of his medical regimen. Continue to follow his renal function and hemoglobin and depending on his progress, further recommendation will be made. MMODL / IJN: [id number] /
[2019-12-04] MEDS ORDERED: Potassium Replacement Protocol 1 EACH MISC MISCELLANE PRN (08:02)
[2019-12-04] MEDS: VENLAFAXINE HCL 75 MG TAB PO SCH ×2 (09:12→21:15)
[2019-12-04] MEDS: POTASSIUM CHLORIDE ER 20 MEQ TAB.ER PO SCH ×3 (09:12→18:10)
[2019-12-04] MEDS: FUROSEMIDE 40 MG TAB PO SCH (09:13)
[2019-12-04] MEDS: MIDODRINE 5 MG TAB PO SCH ×3 (09:13→18:10)
[2019-12-04] MEDS: SPIRONOLACTONE 25 MG TAB PO SCH (09:13)
[2019-12-04] MEDS: CYANOCOBALAMIN 500 MCG TAB PO SCH (09:13)
[2019-12-04] MEDS: PANTOPRAZOLE 40 MG/10 ML VIAL IVP SCH ×2 (09:13→21:14)
[2019-12-04] MEDS: CHOLECALCIFEROL 1,000 UNIT TAB PO SCH (09:13)
[2019-12-04] MEDS: INSULIN ASPART (NovoLOG) 100 UNIT/ML VIAL SQ SCH ×4 (09:22→21:15)
[2019-12-04] MEDS: INSULIN DETEMIR (LEVEMIR) 100 UNIT/ML SYR SQ SCH (09:28)
[2019-12-04 09:29] LABS: Glucose,Whole Blood 191 mg/dL (75-99)
--- NOTE | 2019-12-04 10:13 | P.PN ---
Subjective Progress Note Date: 12/04/19 This is an 79-year-old male patient with severe ischemic cardiomyopathy and ejection fraction of less than 20% along with history of AICD placement in addition to history of hypertension, diabetes mellitus, hyperlipidemia, atrial fibrillation chronic, coronary artery disease with previous bypass surgery and previous history of kidney and bladder cancer post-chemoradiation therapy. He came into the hospital on 11/19/2019 because of worsening shortness of breath and worsening lower extremity edema and a chest x-ray showing pulmonary vascular congestion consistent with CHF. He had a creatinine of 2.0 consistent with chronic kidney disease, stage III. He had some limited troponin elevation in the patient's proBNP level was 2710. He was started on IV Lasix. He was started on IV dobutamine. He was in atrial fibrillation. He had long-term antibiotic ventilation with Eliquis. Subsequently, the patient was transferred to the intensive care unit for complications related to a drop in hemoglobin related to GI bleed. The patient received a total of 4 units of packed RBC and he went and underwent and EGD and he was found to have an active bleeding duodenal ulcer in the second portion of the duodenum just distal to the duodenal sweep with a visible vessel that was injected with epinephrine and Endo Clip was placed. 2 other nonbleeding duodenal ulcers are also present. He had also erosive gastritis involving the antrum of the stomach. He was started on IV Protonix. Subsequently, he received a fifth unit of packed RBC for some fluctuations in his hemoglobin. On today's evaluation of 12/04/2019, the patient is awake and alert and is taking clear liquid diet. He is hemodynamically stable. He is on 2 L of oxygen by nasal cannula. Hemoglobin is at 7.5. No signs of any GI bleed and the patient remains on Protonix. Objective - Vital Signs Vital signs: Vital Signs Temp 96.8 F L 12/04/19 04:00 Pulse 68 12/04/19 04:00 Resp 21 12/04/19 04:00 BP 97/50 12/04/19 04:00 Pulse Ox 94 L 12/04/19 04:00 Intake & Output 12/03/19 12/03/19 12/04/19 06:59 18:59 06:59 Intake Total 300 920 Output Total 1999 679 1284 Balance -1390 -80 -3148 Weight 112.8 kg Intake: Oral 300 300 Blood Product 0 620 Rc As-1 Unit 0 310 [id number] Output: Urine 1999 954 9585 Other: Voiding Method Indwelling Catheter Indwelling Catheter Indwelling Catheter - Exam GENERAL EXAM: Alert, 79-year-old gentleman, awake and alert, on 2 L nasal cannula with an O2 saturation of 100%, comfortable in no apparent distress. HEAD: Normocephalic. EYES: Normal reaction of pupils, equal size. NOSE: Clear with pink turbinates. THROAT: No erythema or exudates. NECK: No masses, no JVD. CHEST: No chest wall deformity. LUNGS: Equal air entry with crackles through the mid lung gibson and lower lung gibson. CVS: S1 and S2 normal with no audible murmur, irregular rhythm. ABDOMEN: No hepatosplenomegaly, normal bowel sounds, no guarding or rigidity. SPINE: No scoliosis or deformity SKIN: No rashes CENTRAL NERVOUS SYSTEM: No focal deficits, tone is normal in all 4 extremities. EXTREMITIES: There is 1-2+ peripheral edema. No clubbing, no cyanosis. Peripheral pulses are intact. - Labs CBC & Chem 7: 12/04/19 03:51 12/04/19 03:51 Labs: Abnormal Lab Results - Last 24 Hours (Table) 11/30/19 12/03/19 12/03/19 Range/Units 09:12 08:30 11:30 WBC 11.3 H (3.8-10.6) k/uL RBC 3.01 L (4.30-5.90) m/uL Hgb 8.1 L (13.0-17.5) gm/dL Hct 25.6 L (39.0-53.0) % MCHC (31.0-37.0) g/dL RDW 18.6 H (11.5-15.5) % Neutrophils # (Manual) 8.36 H (1.3-7.7) k/uL Lymphocytes # (Manual) (1.0-4.8) k/uL Nucleated RBCs 2 H (0-0) /100 WBC Potassium (3.5-5.1) mmol/L Chloride (98-107) mmol/L Carbon Dioxide (22-30) mmol/L BUN (9-20) mg/dL Creatinine (0.66-1.25) mg/dL Glucose (74-99) mg/dL POC Glucose (mg/dL) 105 H (75-99) mg/dL Crossmatch See Detail 12/03/19 12/03/19 12/03/19 Range/Units 16:44 19:53 20:36 WBC (3.8-10.6) k/uL RBC 2.77 L (4.30-5.90) m/uL Hgb 7.4 L (13.0-17.5) gm/dL Hct 23.5 L (39.0-53.0) % MCHC (31.0-37.0) g/dL RDW 18.3 H (11.5-15.5) % Neutrophils # (Manual) (1.3-7.7) k/uL Lymphocytes # (Manual) (1.0-4.8) k/uL Nucleated RBCs (0-0) /100 WBC Potassium (3.5-5.1) mmol/L Chloride (98-107) mmol/L Carbon Dioxide (22-30) mmol/L BUN (9-20) mg/dL Creatinine (0.66-1.25) mg/dL Glucose (74-99) mg/dL POC Glucose (mg/dL) 120 H 140 H (75-99) mg/dL Crossmatch 12/04/19 12/04/19 Range/Units 03:51 03:51 WBC (3.8-10.6) k/uL RBC 2.88 L (4.30-5.90) m/uL Hgb 7.5 L (13.0-17.5) gm/dL Hct 24.5 L (39.0-53.0) % MCHC 30.5 L (31.0-37.0) g/dL RDW 18.7 H (11.5-15.5) % Neutrophils # (Manual) (1.3-7.7) k/uL Lymphocytes # (Manual) 0.61 L (1.0-4.8) k/uL Nucleated RBCs (0-0) /100 WBC Potassium 3.4 L (3.5-5.1) mmol/L Chloride 95 L (98-107) mmol/L Carbon Dioxide 38 H (22-30) mmol/L BUN 73 H (9-20) mg/dL Creatinine 1.62 H (0.66-1.25) mg/dL Glucose 62 L (74-99) mg/dL POC Glucose (mg/dL) (75-99) mg/dL Crossmatch Assessment and Plan Plan: 1. Acute exacerbation of chronic congestive heart failure with systolic dysfunction currently on 2 L of oxygen by nasal cannula and the patient is hemodynamically stable on no pressors. Patient is on Lasix or in addition to Aldactone. Patient is on Coreg 3.125 mg by mouth twice a day and Cozaar 25 mg by mouth daily. Midrin is also added for blood pressure control. 2. upper GI bleed with an acute blood loss anemia requiring a total of 5 units of packed RBC during this current admission. EGD performed on 12/02/2019 revealed an actively bleeding duodenal ulcer in the second portion of the duodenum just distal to the distal duodenal sweep with a visible vessel, status post injection of epinephrine followed by Endo Clip. There were 2 other nonbleeding duodenal ulcers noted as well. Antral erosive gastritis. she is on Protonix 40 mg IV push every 12 hours. GI is on the case. 3. chronic stage III kidney disease with a component of an acute kidney injury likely related to cardiorenal syndrome, diuretic therapy, nephrology is following, and the patient's creatinine is stable for now and is back to its baseline 4. Acute urinary tract infection, placed on ceftriaxone, urine culture negative 5. Ischemic cardiomyopathy, with EF of less than 20%, status post AICD implantation 6. History of chronic persistent atrial fibrillation on oral anticoagulation with Eliquis which is currently on hold based on underlying GI bleed 7. History of chronic kidney disease stage III at baseline, history of right hydronephrosis and patient follows with urology 8. Coronary artery disease status post bypass grafting 9. Hypertension 10. Hyperlipidemia 11. History of bladder cancer 12. Diabetes mellitus currently on Levemir insulin 40 units at bedtime and 10 units in the morning Plan Hemoglobin stable at 7.5 Renal function is improvement in the creatinine is at 1.6 Continue oral diuretics CHF management Oxygen 2 L per minute nasal cannula Protonix Advance diet as tolerated Can transferred to selective
[2019-12-04] MEDS: METOPROLOL TARTRATE 12.5 MG TAB PO SCH ×2 (10:44→21:15)
[2019-12-04 12:34] LABS: Glucose,Whole Blood 228 mg/dL (75-99)
--- NOTE | 2019-12-04 14:51 | P.PN ---
Subjective Progress Note Date: 12/04/19 Principal diagnosis: Anemia of acute blood loss, upper GI bleed, duodenal ulcers The patient is seen sitting bedside denying any signs or symptoms of GI bleeding today. He has tolerated a liquid diet. No nausea or vomiting. Patient is denying any abdominal pain at this time. Objective - Vital Signs Vital signs: Vital Signs Temp 97.8 F 12/04/19 12:00 Pulse 66 12/04/19 12:00 Resp 17 12/04/19 12:00 BP 99/74 12/04/19 12:00 Pulse Ox 99 12/04/19 12:00 Intake & Output 12/03/19 12/04/19 12/04/19 18:59 06:59 18:59 Intake Total 920 Output Total 975 1275 465 Balance -55 -1275 -663 Weight 112.8 kg Intake: Oral 300 Blood Product 620 Rc As-1 Unit 310 [id number] Output: Urine 975 1275 465 Other: Voiding Method Indwelling Catheter Indwelling Catheter Indwelling Catheter - Exam On physical examination, patient appears comfortable in no apparent distress. HEAD: Normocephalic, atraumatic. EYES: No scleral icterus. No conjunctival injection. MOUTH: No lesions, tongue midline. NECK: Trachea midline, no gross abnormalities. ABDOMEN: Soft, obese. Bowel sounds are positive. No organomegaly. No guarding or rigidity. EXTREMITIES: No pedal edema. SKIN: No rashes, no jaundice. NEUROLOGIC: Alert and oriented x3. No focal deficits. - Labs CBC & Chem 7: 12/04/19 03:51 12/04/19 03:51 Labs: Abnormal Lab Results - Last 24 Hours (Table) 12/03/19 12/03/19 12/03/19 Range/Units 16:44 19:53 20:36 RBC 2.77 L (4.30-5.90) m/uL Hgb 7.4 L (13.0-17.5) gm/dL Hct 23.5 L (39.0-53.0) % MCHC (31.0-37.0) g/dL RDW 18.3 H (11.5-15.5) % Lymphocytes # (Manual) (1.0-4.8) k/uL Potassium (3.5-5.1) mmol/L Chloride (98-107) mmol/L Carbon Dioxide (22-30) mmol/L BUN (9-20) mg/dL Creatinine (0.66-1.25) mg/dL Glucose (74-99) mg/dL POC Glucose (mg/dL) 120 H 140 H (75-99) mg/dL 12/04/19 12/04/19 12/04/19 Range/Units 03:51 03:51 06:44 RBC 2.88 L (4.30-5.90) m/uL Hgb 7.5 L (13.0-17.5) gm/dL Hct 24.5 L (39.0-53.0) % MCHC 30.5 L (31.0-37.0) g/dL RDW 18.7 H (11.5-15.5) % Lymphocytes # (Manual) 0.61 L (1.0-4.8) k/uL Potassium 3.4 L (3.5-5.1) mmol/L Chloride 95 L (98-107) mmol/L Carbon Dioxide 38 H (22-30) mmol/L BUN 73 H (9-20) mg/dL Creatinine 1.62 H (0.66-1.25) mg/dL Glucose 62 L (74-99) mg/dL POC Glucose (mg/dL) 105 H (75-99) mg/dL 12/04/19 12/04/19 Range/Units 09:28 12:32 RBC (4.30-5.90) m/uL Hgb (13.0-17.5) gm/dL Hct (39.0-53.0) % MCHC (31.0-37.0) g/dL RDW (11.5-15.5) % Lymphocytes # (Manual) (1.0-4.8) k/uL Potassium (3.5-5.1) mmol/L Chloride (98-107) mmol/L Carbon Dioxide (22-30) mmol/L BUN (9-20) mg/dL Creatinine (0.66-1.25) mg/dL Glucose (74-99) mg/dL POC Glucose (mg/dL) 191 H 228 H (75-99) mg/dL Assessment and Plan (1) Duodenal ulcer with hemorrhage Narrative/Plan: 79-year-old male with multiple medical comorbidities being treated for fluid overload and atrial fibrillation found to have a fall in his hemoglobin. He was taken for EGD with findings of gastritis and 3 duodenal ulcers, one which was actively bleeding and treated with Endo Clip placement and epinephrine injection with hemostasis. No further signs or symptoms of GI bleeding. Hemoglobin is stable today at 7.5. Current Visit: Yes Status: Acute Code(s): K26.4 - CHRONIC OR UNSPECIFIED DUODENAL ULCER WITH HEMORRHAGE SNOMED Code(s): 21991333 (2) Anemia associated with acute blood loss Current Visit: Yes Status: Acute Code(s): D62 - ACUTE POSTHEMORRHAGIC ANEMIA SNOMED Code(s): 414413611 (3) GI bleed Current Visit: Yes Status: Acute Code(s): K92.2 - GASTROINTESTINAL HEMORRHAGE, UNSPECIFIED SNOMED Code(s): 19154502 Plan: Supportive care Diet advance to full liquids IV iron ordered for 3 doses as laboratory evaluation is consistent with an iron deficiency anemia, exacerbated by acute GI bleed Continue Protonix 40 mg IV twice daily Avoid NSAID use Continue management of other medical comorbidities No plans for further endoscopic evaluation at this time Thank you for allowing us to participate in the care of the patient
[2019-12-04] MEDS: SODIUM FERRIC GLUCONAT-SUCROSE 125 MG in SODIUM CHLORIDE 0.9% 100 ML IVPB SCH (15:13)
--- NOTE | 2019-12-04 15:21 | PN ---
PROGRESS NOTE Patient is seen for followup for acute kidney injury, mainly cardiorenal. Patient is currently maintained on oral Lasix. He states he is feeling better. His weight is down quite a bit, if this is accurate from 2 days ago by 6 kg. A 24 hour urine output about 4.5 L. PHYSICAL EXAMINATION: On examination today, blood pressure was 102/60, heart rate 90 per minute, patient is afebrile. Examination of the heart S1, S2. Examination of the lungs, decreased breath sounds at bases. Abdomen is soft, obese. Examination of the lower extremities shows chronic edema, bilateral lower extremities, 2+ bilaterally. [employer] exam grossly intact. LABS: Show hemoglobin 7.5 sodium 138, potassium 3.4, chloride 95, BUN of 73, creatinine 1.62. ASSESSMENT: 1. Acute kidney injury cardiorenal, currently improving, continue with current dose of Lasix. 2. Metabolic alkalosis secondary to diuresis. Will monitor for now. 3. Hypokalemia. We will replace secondary etiology is diuretics. 4. Severe cardiomyopathy, ejection fraction about 20%-25%. 5. Chronic kidney disease, stage III, baseline creatinine 1.2. 6. Gastrointestinal bleed, status post EGD which showed active bleeding, duodenal ulcer, antral erosive gastritis, and other nonbleeding duodenal ulcers in the duodenal bulb. PLAN: Continue current dose of Lasix. Repeat labs in a.m. Continue with the midodrine. Replace potassium. I will also add Aldactone. Continue with the Cozaar. MMODL / IJN: [id number] /
--- NOTE | 2019-12-04 16:07 | P.PN ---
Progress Note - Text Progress Note Date: 12/04/19 Chief Complaint: Shortness of breath Patient is a 79-year-old patient of Dr. Cavanaugh. history of chronic atrial fibrillation on anticoagulation with Eliquis, coronary artery disease status post bypass graft, cardiomyopathy status post AICD placement, history of nephrec araceli and unilateral kidney, CK D stage III, hypertension, hyperlipidemia, GERD, diabetes type 2 and history of bipolar/depression came to ER with complaints of worsening shortness of breath and exertional dyspnea and bilateral lower extremity increases swelling for the past 2 weeks. Patient does have minimal cough without any sputum production. No sputum production. No complaints of fever or chills. Denied any sick contacts at home. No recent travel. Admitted with CHF exacerbation, atrial fibrillation with a rapid ventricular rate. Started on IV Lasixdrip and IV amiodarone.then IV dobutamine was added. Switch to IV Lasix bolus. November 29 patient became hypotensive. Hemoglobin dropped to 4.2. Moved to the ICU. Also had some dark stools. EGD on December 01- Found to have an actively bleeding duodenal ulcer in the second portion of duodenum. Epinephrine injection was given followed by Endo Clip. 2 other nonbleeding duodenal ulcers were found. Since admission received a total of 5 units of blood. Today-. ICU: More awake. Looks better. Advance to full liquid diet. Did walk a few steps in the room. Review of systems: Was attempted for constitutional, cardiovascular, GI, pulmonary. relevant finding as above Active Medications Atorvastatin Calcium (Lipitor) 80 mg PO HS [facility] Last Admin: 12/03/19 20:25 Dose: 80 mg Documented by: Cholecalciferol (Vitamin D3 (25 Mcg = 1000 Iu)) 2,000 unit PO DAILY [facility] Last Admin: 12/04/19 09:13 Dose: 2,000 unit Documented by: Cyanocobalamin (Vitamin B-12) 1,000 mcg PO DAILY [facility] Last Admin: 12/04/19 09:13 Dose: 1,000 mcg Documented by: Furosemide (Lasix) 40 mg PO DAILY [facility] Last Admin: 12/04/19 09:13 Dose: 40 mg Documented by: Furosemide (Lasix) 20 mg PO DAILY@1700 [facility] Last Admin: 12/03/19 17:09 Dose: 20 mg Documented by: Ferric Sodium Gluconate 125 mg (/ Sodium Chloride) 110 mls @ 100 mls/hr IVPB DAILY [facility] Stop: 12/06/19 10:05 Last Admin: 12/04/19 15:13 Dose: 100 mls/hr Documented by: Insulin Aspart (Novolog) 0 unit SQ [facility]; Protocol Last Admin: 12/04/19 12:45 Dose: 5 unit Documented by: Insulin Detemir (Levemir) 28 unit SQ [facility] Lamotrigine (Lamictal) 100 mg PO [facility] Last Admin: 12/03/19 20:25 Dose: 100 mg Documented by: Losartan Potassium (Cozaar) 25 mg PO [facility] Last Admin: 12/03/19 21:24 Dose: 25 mg Documented by: Melatonin (Melatonin) 3 mg PO [facility] Last Admin: 12/03/19 20:26 Dose: 3 mg Documented by: Metoprolol Tartrate (Lopressor) 12.5 mg PO BID [facility] Last Admin: 12/04/19 10:44 Dose: Not Given Documented by: Midodrine (Proamatine) 10 mg PO AC-TID [facility] Last Admin: 12/04/19 12:45 Dose: 10 mg Documented by: Miscellaneous Information (Potassium Per Protocol) 1 each MISCELLANE DAILY PRN; Protocol PRN Reason: Per Protocol Ondansetron HCl (Zofran) 4 mg IVP Q6HR PRN PRN Reason: Nausea And Vomiting Last Admin: 11/24/19 16:43 Dose: 4 mg Documented by: Pantoprazole Sodium (Protonix) 40 mg IVP BID [facility] Last Admin: 12/04/19 09:13 Dose: 40 mg Documented by: Potassium Chloride (K-Dur 20) 20 meq PO DAILY [facility] Last Admin: 12/04/19 09:12 Dose: 20 meq Documented by: Spironolactone (Aldactone) 25 mg PO DAILY [facility] Last Admin: 12/04/19 09:13 Dose: 25 mg Documented by: Venlafaxine HCl (Effexor) 75 mg PO BID [facility] Last Admin: 12/04/19 09:12 Dose: 75 mg Documented by: On examination: VITAL SIGNS: 97.8, 66, 17, 99/74, 99% on 2 L GENERAL APPEARANCE: BMI 34.7, sitting upon a chair, more awake today HEENT: Normal external appearance of nose and ear. Oral cavity normal EYES: Pupils equal. Conjunctiva pale. NECK: JVD unable to assess Mass not palpable. RESPIRATORY: Respiratory effort increased. Decreased breath sounds. CARDIOVASCULAR: Heart sounds irregular, edema present ABDOMEN: Soft. Liver and spleen not palpable. No tenderness. No mass palpable. Bansal catheter-hematuria cleared PSYCHIATRY: Answering questions INVESTIGATIONS, reviewed in the clinical context: White count 8.7 hemoglobin 7.5 platelets 207in 3.4 bun 73 creatinine 1.62 Previous testing: White count 8.2 hemoglobin 10.6 potassium 5.2 bun 52 creatinine 2.0 troponin I 0.0-3 EKG-possible A. fib Chest x-ray film personally reviewed by me-pulmonary edema cardiomegaly BUN/creatinine on October 07-1.58 EGD/December 01/-bleeding duodenal ulcer that was given epinephrine and Endo Clip. 2 other duodenal ulcers nonbleeding. Assessment: -Acute on chronic congestive heart failure exacerbation from systolic dysfunction, EF less than 30% -Bleeding duodenal ulcer given epinephrine injection with Endo Clip. 2 other nonbleeding duodenal ulcers -Acute blood loss anemia-black tarry stools, from above-requiring a total of 5 units of blood -Severe hypokalemia from diuresis, better -Hypotension multifactorial Ischemic cardiomyopathy Persistent atrial fibrillation on anticoagulation with Eliquis, rate better controlled Acute kidney injury secondary to cardiorenal syndrome, -chronic kidney disease stage III. Mild hyperkalemia secondary to acute kidney injury Lactic acidosis-type II History of nephrectomy due to renal cancer and bladder cancer history Diabetes type 2. Insulin-dependent and also on metformin and glipizide. Hyperlipidemia Coronary artery disease with history of multiple stents placement Bipolar disorder and depression GERD Obesity with BMI 34.9 - Plan: Care was discussed with the patient. Advance to a full liquid diet today. If hemoglobin remains stable tomorrow hopefully can be discharged to ECF.
[2019-12-04 17:33] LABS: Glucose,Whole Blood 261 mg/dL (75-99)
[2019-12-04] MEDS: FUROSEMIDE 20 MG TAB PO SCH (18:10)
[2019-12-04 20:13] LABS: Glucose,Whole Blood 251 mg/dL (75-99)
[2019-12-04] MEDS ORDERED: INSULIN DETEMIR (LEVEMIR) 100 UNIT/ML SYR SQ SCH (21:00)
[2019-12-04] MEDS: MELATONIN 3 MG TABLET PO SCH (21:14)
[2019-12-04] MEDS: ATORVASTATIN 80 MG TAB PO SCH (21:14)
[2019-12-04] MEDS: LOSARTAN 25 MG TAB PO SCH (21:14)
[2019-12-04] MEDS: lamoTRIgine 100 MG TAB PO SCH (21:19)
[2019-12-05 05:11] LABS: Calcium 8.3 mg/dL (8.4-10.2)
[2019-12-05 05:26] LABS: Glucose,Whole Blood 48 mg/dL (75-99)
[2019-12-05 05:30] LABS: Anisocytosis Slight; Basophils % (A) 0 %; Eosinophils # (A) 0.3 k/uL (0-0.7); Eosinophils % (A) 3 %; HCT 25.4 % (39.0-53.0); HGB 7.5 gm/dL (13.0-17.5); Hypochromasia Marked; Lymphocytes # (A) 1.2 k/uL (1.0-4.8); Lymphocytes % (A) 11 %; MCHC 29.5 g/dL (31.0-37.0); MCV 87.9 fL (80.0-100.0); Mean Platelet Volume 7.9; Monocytes # (A) 1.3 k/uL (0-1.0); Monocytes % (A) 12 %; Neutrophils # (A) 7.5 k/uL (1.3-7.7); Neutrophils % (A) 70 %; Platelet Count 234 k/uL (150-450); Poikilocytosis Moderate; RBC 2.89 m/uL (4.30-5.90); RDW 18.3 % (11.5-15.5); WBC 10.6 k/uL (3.8-10.6)
[2019-12-05 06:04] LABS: Glucose,Whole Blood 53 mg/dL (75-99)
[2019-12-05 06:31] LABS: Glucose,Whole Blood 71 mg/dL (75-99)
[2019-12-05] MEDS: INSULIN ASPART (NovoLOG) 100 UNIT/ML VIAL SQ SCH ×2 (07:51→12:37)
[2019-12-05] MEDS: MIDODRINE 5 MG TAB PO SCH ×2 (07:53→12:50)
[2019-12-05] MEDS: PANTOPRAZOLE 40 MG/10 ML VIAL IVP SCH (08:17)
[2019-12-05] MEDS: POTASSIUM CHLORIDE ER 20 MEQ TAB.ER PO SCH (08:17)
[2019-12-05] MEDS: SPIRONOLACTONE 25 MG TAB PO SCH (08:17)
[2019-12-05] MEDS: CYANOCOBALAMIN 500 MCG TAB PO SCH (08:17)
[2019-12-05] MEDS: VENLAFAXINE HCL 75 MG TAB PO SCH (08:17)
[2019-12-05] MEDS: CHOLECALCIFEROL 1,000 UNIT TAB PO SCH (08:17)
[2019-12-05] MEDS: FUROSEMIDE 40 MG TAB PO SCH (08:17)
[2019-12-05] MEDS ORDERED: METOPROLOL TARTRATE 25 MG TAB PO SCH (09:00)
--- NOTE | 2019-12-05 09:08 | PN ---
PROGRESS NOTE Mr. Bhakta is an 79-year-old male with known history of chronic persistent atrial fibrillation, history of severe ischemic cardiomyopathy, hypertension, hyperlipidemia, coronary artery bypass grafting, who presented with anemia and GI bleeding requiring transfusion. He is feeling better today. His blood pressure and heart rate are stable. He denies any dizziness or palpitation. He denies any nausea. Hemodynamically, he is in atrial fibrillation with controlled ventricular response. He continues to be on Lipitor 80 mg daily, furosemide 40 in the morning 20 in the afternoon, insulin, losartan 25 mg daily, metoprolol tartrate 12.5 mg twice a day, spironolactone 25 mg daily. PHYSICAL EXAMINATION: Blood pressure 110/70 with a heart rate in the 70s. LUNGS: Clear. HEART: Irregular regular, S1, S2. No S3 with a systolic murmur. ABDOMEN: Soft, nontender, positive bowel sounds, no organomegaly. EXTREMITIES: With 1+ edema. LAB DATA: Revealed a hemoglobin of 7.5 which has been stable. BUN and creatinine of 63 and 1.57. Potassium 4.0. IMPRESSION: 1. Gastrointestinal bleeding, stable at this time. No evidence of active bleeding. 2. Exacerbation of congestive heart failure with known severe ischemic cardiomyopathy. 3. Chronic persistent atrial fibrillation, not anticoagulated. 4. Status post coronary artery bypass grafting. 5. Hypertension. 6. Hyperlipidemia. 7. Renal failure, improving. 8. Status post ICD implantation. RECOMMENDATION: I will increase the dose of the metoprolol to 25 mg twice a day. Continue rest of his medical regimen, increase his physical activity. Follow his blood pressure and heart rate and depending on his progress, further recommendation will be made. MMODL / IJN: [id number] /
[2019-12-05] MEDS: SODIUM FERRIC GLUCONAT-SUCROSE 125 MG in SODIUM CHLORIDE 0.9% 100 ML IVPB SCH (10:02)
[2019-12-05 10:43] VITALS: BP 114/54
--- NOTE | 2019-12-05 11:38 | P.PN ---
Subjective Progress Note Date: 12/05/19 This is an 79-year-old male patient with severe ischemic cardiomyopathy and ejection fraction of less than 20% along with history of AICD placement in addition to history of hypertension, diabetes mellitus, hyperlipidemia, atrial fibrillation chronic, coronary artery disease with previous bypass surgery and previous history of kidney and bladder cancer post-chemoradiation therapy. He came into the hospital on 11/19/2019 because of worsening shortness of breath and worsening lower extremity edema and a chest x-ray showing pulmonary vascular congestion consistent with CHF. He had a creatinine of 2.0 consistent with chronic kidney disease, stage III. He had some limited troponin elevation in the patient's proBNP level was 2710. He was started on IV Lasix. He was started on IV dobutamine. He was in atrial fibrillation. He had long-term antibiotic ventilation with Eliquis. Subsequently, the patient was transferred to the intensive care unit for complications related to a drop in hemoglobin related to GI bleed. The patient received a total of 4 units of packed RBC and he went and underwent and EGD and he was found to have an active bleeding duodenal ulcer in the second portion of the duodenum just distal to the duodenal sweep with a visible vessel that was injected with epinephrine and Endo Clip was placed. 2 other nonbleeding duodenal ulcers are also present. He had also erosive gastritis involving the antrum of the stomach. He was started on IV Protonix. Subsequently, he received a fifth unit of packed RBC for some fluctuations in his hemoglobin. On today's evaluation of 12/04/2019, the patient is awake and alert and is taking clear liquid diet. He is hemodynamically stable. He is on 2 L of oxygen by nasal cannula. Hemoglobin is at 7.5. No signs of any GI bleed and the patient remains on Protonix. On today's evaluation of 12/05/2019, the patient remains stable. He has no complaints. No bleeding. He is having regular diet. No nausea. No vomiting. No abdominal pain. No chest pain. Slightly hypotensive and the patient is currently on Midrin for blood pressure control. He is back on his oral Lasix 40 mg scheduled and 20 mg on a daily basis. He is also on Aldactone. He remains on Protonix. No bleeding complications. Hemoglobin stable at 7.5 and the patient's has no new complaints otherwise for now. We're waiting for this patient to be transferred out of the intensive care unit. Objective - Vital Signs Vital signs: Vital Signs Temp 97.7 F 12/05/19 08:00 Pulse 63 12/05/19 10:00 Resp 21 12/05/19 10:00 BP 114/54 12/05/19 10:00 Pulse Ox 97 12/05/19 00:00 Intake & Output 12/04/19 12/05/19 12/05/19 18:59 06:59 18:59 Intake Total 120 340 Output Total 465 725 300 Balance -465 -605 40 Weight 114.8 kg Intake: Intake, IV Titration 100 Amount Sodium Ferric Gluconat- 100 Sucrose 125 mg In Sodium Chloride 0.9% 100 ml @ 100 mls/hr IVPB DAILY [facility] Rx#:[id number] Oral 120 240 Output: Urine 465 725 300 Other: Voiding Method Indwelling Catheter Indwelling Catheter Indwelling Catheter # Bowel Movements 1 - Exam GENERAL EXAM: Alert, 79-year-old gentleman, awake and alert, on 2 L nasal cannula with an O2 saturation of 100%, comfortable in no apparent distress. HEAD: Normocephalic. EYES: Normal reaction of pupils, equal size. NOSE: Clear with pink turbinates. THROAT: No erythema or exudates. NECK: No masses, no JVD. CHEST: No chest wall deformity. LUNGS: Equal air entry with crackles through the mid lung gibson and lower lung gibson. CVS: S1 and S2 normal with no audible murmur, irregular rhythm. ABDOMEN: No hepatosplenomegaly, normal bowel sounds, no guarding or rigidity. SPINE: No scoliosis or deformity SKIN: No rashes CENTRAL NERVOUS SYSTEM: No focal deficits, tone is normal in all 4 extremities. EXTREMITIES: There is 1-2+ peripheral edema. No clubbing, no cyanosis. Peripheral pulses are intact. - Labs CBC & Chem 7: 12/05/19 04:05 12/05/19 04:05 Labs: Abnormal Lab Results - Last 24 Hours (Table) 12/04/19 12/04/19 12/04/19 Range/Units 12:32 17:31 20:11 RBC (4.30-5.90) m/uL Hgb (13.0-17.5) gm/dL Hct (39.0-53.0) % MCHC (31.0-37.0) g/dL RDW (11.5-15.5) % Monocytes # (0-1.0) k/uL Sodium (137-145) mmol/L Chloride (98-107) mmol/L Carbon Dioxide (22-30) mmol/L BUN (9-20) mg/dL Creatinine (0.66-1.25) mg/dL Glucose (74-99) mg/dL POC Glucose (mg/dL) 228 H 261 H 251 H (75-99) mg/dL Calcium (8.4-10.2) mg/dL 12/05/19 12/05/19 12/05/19 Range/Units 04:05 04:05 05:25 RBC 2.89 L (4.30-5.90) m/uL Hgb 7.5 L (13.0-17.5) gm/dL Hct 25.4 L (39.0-53.0) % MCHC 29.5 L (31.0-37.0) g/dL RDW 18.3 H (11.5-15.5) % Monocytes # 1.3 H (0-1.0) k/uL Sodium 134 L (137-145) mmol/L Chloride 92 L (98-107) mmol/L Carbon Dioxide 38 H (22-30) mmol/L BUN 63 H (9-20) mg/dL Creatinine 1.57 H (0.66-1.25) mg/dL Glucose 36 L* (74-99) mg/dL POC Glucose (mg/dL) 48 L (75-99) mg/dL Calcium 8.3 L (8.4-10.2) mg/dL 12/05/19 12/05/19 Range/Units 06:03 06:29 RBC (4.30-5.90) m/uL Hgb (13.0-17.5) gm/dL Hct (39.0-53.0) % MCHC (31.0-37.0) g/dL RDW (11.5-15.5) % Monocytes # (0-1.0) k/uL Sodium (137-145) mmol/L Chloride (98-107) mmol/L Carbon Dioxide (22-30) mmol/L BUN (9-20) mg/dL Creatinine (0.66-1.25) mg/dL Glucose (74-99) mg/dL POC Glucose (mg/dL) 53 L 71 L (75-99) mg/dL Calcium (8.4-10.2) mg/dL Assessment and Plan Plan: 1. Acute exacerbation of chronic congestive heart failure with systolic dysfunction currently on 2 L of oxygen by nasal cannula and the patient is hemodynamically stable on no pressors. Patient is on Lasix or in addition to Aldactone. Patient is on Coreg 3.125 mg by mouth twice a day and Cozaar 25 mg by mouth daily. Midrin is also added for blood pressure control. 2. upper GI bleed with an acute blood loss anemia requiring a total of 5 units of packed RBC during this current admission. EGD performed on 12/02/2019 revealed an actively bleeding duodenal ulcer in the second portion of the duodenum just distal to the distal duodenal sweep with a visible vessel, status post injection of epinephrine followed by Endo Clip. There were 2 other nonbleeding duodenal ulcers noted as well. Antral erosive gastritis. she is on Protonix 40 mg IV push every 12 hours. GI is on the case. 3. chronic stage III kidney disease with a component of an acute kidney injury likely related to cardiorenal syndrome, diuretic therapy, nephrology is following, and the patient's creatinine is stable for now and is back to its baseline 4. Acute urinary tract infection, placed on ceftriaxone, urine culture negative 5. Ischemic cardiomyopathy, with EF of less than 20%, status post AICD implantation 6. History of chronic persistent atrial fibrillation on oral anticoagulation with Eliquis which is currently on hold based on underlying GI bleed 7. History of chronic kidney disease stage III at baseline, history of right hydronephrosis and patient follows with urology 8. Coronary artery disease status post bypass grafting 9. Hypertension 10. Hyperlipidemia 11. History of bladder cancer 12. Diabetes mellitus currently on Levemir insulin 40 units at bedtime and 10 units in the morning Plan Condition remains stable. The patient shows no signs of any GI bleeding for now. Hemoglobin stable at 7.5. The patient has a creatinine of 1.5. The patient can be changed and out of the intensive care unit. No evidence of any acute bleeding. Monitor cardiac ablation for now. This needs to be cleared further by gastroenterology.
[2019-12-05 11:58] LABS: Glucose,Whole Blood 138 mg/dL (75-99)
[2019-12-05 12:00] VITALS: BMI 35.3
--- NOTE | 2019-12-05 12:48 | P.DS ---
Providers Date of admission: 11/19/19 13:57 Expected date of discharge: 12/05/19 Attending physician: Jhoan Poe Consults: 11/19/19 13:51 Consult Physician Routine Consulting Provider: Aliza Vargas Consult Reason/Comments: CHF Do you want consulting provider notified?: Yes 11/21/19 09:13 Consult Physician Routine Consulting Provider: Micaela Reed Consult Reason/Comments: abn creat Do you want consulting provider notified?: Yes 11/22/19 13:49 Consult Physician Routine Consulting Provider: Kirk Rivers Consult Reason/Comments: sob, infiltrates Do you want consulting provider notified?: Yes 11/30/19 08:48 Consult Physician Routine Consulting Provider: Rolly Kingsley Consult Reason/Comments: ICU management Do you want consulting provider notified?: Yes 11/30/19 14:31 Consult Physician Routine Consulting Provider: Olga Navarrete Consult Reason/Comments: Acute severe anemia Do you want consulting provider notified?: Yes Primary care physician: [facility] Course: Chief Complaint: Shortness of breath Patient is a 79-year-old patient of Dr. Cavanaugh. history of chronic atrial fibrillation on anticoagulation with Eliquis, coronary artery disease status post bypass graft, cardiomyopathy status post AICD placement, history of nephrectomy and unilateral kidney, CK D stage III, hypertension, hyperlipidemia, GERD, diabetes type 2 and history of bipolar/depression came to ER with complaints of worsening shortness of breath and exertional dyspnea and bilateral lower extremity increases swelling for the past 2 weeks. Patient does have minimal cough without any sputum production. No sputum production. No complaints of fever or chills. Denied any sick contacts at home. No recent travel. Admitted with CHF exacerbation, atrial fibrillation with a rapid ventricular rate. Started on IV Lasixdrip and IV amiodarone.then IV dobutamine was added. Switch to IV Lasix bolus. November 29 patient became hypotensive. Hemoglobin dropped to 4.2. Moved to the ICU. Also had some dark stools. EGD on December 01- Found to have an actively bleeding duodenal ulcer in the second portion of duodenum. Epinephrine injection was given followed by Endo Clip. 2 other nonbleeding duodenal ulcers were found. Since admission received a total of 5 units of blood. Today-. Comfortable. Breathing stable. No further drop in hemoglobin. Hemoglobin stable at 7.5. Appetite improved. Sugars were low this morning. Dose of Levemir to be further cut back. Discussed with patient. Discussion and discharge planning more than 35 minutes Consultants: [facility] Dr. Reed and partners from nephrology Dr. Rivers and colleagues from pulmonary Dr. Ann Navarrete and partners from GI On examination: VITAL SIGNS: 97.8, 66, 17, 99/74, 99% on 2 L GENERAL APPEARANCE: BMI 34.7, sitting upon a chair, more awake today HEENT: Normal external appearance of nose and ear. Oral cavity normal EYES: Pupils equal. Conjunctiva pale. NECK: JVD unable to assess Mass not palpable. RESPIRATORY: Respiratory effort normal Decreased breath sounds. CARDIOVASCULAR: Heart sounds irregular, edema decreased ABDOMEN: Soft. Liver and spleen not palpable. No tenderness. No mass palpable. Bansal catheter-hematuria cleared PSYCHIATRY: Answering questions INVESTIGATIONS, reviewed in the clinical context: White count 10.6 hemoglobin 7.5 platelets 234 potassium 4 bun 63 creatinine 1.53 Previous testing: White count 8.2 hemoglobin 10.6 potassium 5.2 bun 52 creatinine 2.0 troponin I 0.0-3 EKG-possible A. fib Chest x-ray film personally reviewed by me-pulmonary edema cardiomegaly BUN/creatinine on October 07-1.58 EGD/December 01/-bleeding duodenal ulcer that was given epinephrine and Endo Clip. 2 other duodenal ulcers nonbleeding. Assessment: -Acute on chronic congestive heart failure exacerbation from systolic dysfunction, EF less than 30% POA -Bleeding duodenal ulcer given epinephrine injection with Endo Clip. 2 other nonbleeding duodenal ulcers -Acute blood loss anemia-black tarry stools, from above-requiring a total of 5 units of blood -Severe hypokalemia from diuresis, better -Hypotension multifactorial Ischemic cardiomyopathy Persistent atrial fibrillation on anticoagulation with Eliquis, rate better controlled Acute kidney injury secondary to cardiorenal syndrome, -chronic kidney disease stage III. Mild hyperkalemia secondary to acute kidney injury Lactic acidosis-type II History of nephrectomy due to renal cancer and bladder cancer history Diabetes type 2. Insulin-dependent and also on metformin and glipizide. Hyperlipidemia Coronary artery disease with history of multiple stents placement Bipolar disorder and depression GERD Obesity with BMI 34.9 Labs: CBC BMP-3 days - Disposition: ECF/[facility] Patient Condition at Discharge: Stable Plan - Discharge Summary Discharge Rx Participant: No New Discharge Prescriptions: New Spironolactone [Aldactone] 25 mg PO DAILY tab Losartan [Cozaar] 25 mg PO HS tab Potassium Chloride ER [K-Dur 20] 20 meq PO DAILY tab.er.prt Furosemide [Lasix] 20 mg PO DAILY@1700 tab Furosemide [Lasix] 40 mg PO DAILY tab Metoprolol Tartrate [Lopressor] 25 mg PO BID tab Melatonin 3 mg PO HS tablet INSULIN ASPART (NovoLOG) [NovoLOG (formulary)] 0 unit SQ ACHS vial Midodrine [ProAmatine] 10 mg PO AC-TID tab Pantoprazole Sodium [Protonix] 40 mg PO BID #1 tablet.dr Continue Venlafaxine HCl [Effexor] 75 mg PO BID tab Atorvastatin [Lipitor] 80 mg PO HS Cyanocobalamin (Vitamin B-12) [Vitamin B-12] 1,000 mcg PO DAILY lamoTRIgine [LaMICtal] 100 mg PO HS #3 tab Changed Insulin Glargine [Lantus] 20 unit SQ HS #0 Discontinued metFORMIN HCL 1,000 mg PO BID Apixaban [Eliquis] 5 mg PO BID glipiZIDE [Glucotrol] 5 mg PO AC-BID #0 tab Aspirin 81 mg PO DAILY 30 Days #30 chew Furosemide [Lasix] 40 mg PO BID@0900,1600 tab Insulin Glargine [Lantus] 10 unit SQ QAM Cholecalciferol [Vitamin D3 (25 Mcg = 1000 Iu)] 2,000 unit PO DAILY No Action Carvedilol [Coreg] 12.5 mg PO AC-BID Discharge Medication List Venlafaxine HCl [Effexor] 75 mg PO BID tab 10/07/19 [Rx] Atorvastatin [Lipitor] 80 mg PO HS 11/19/19 [History] Carvedilol [Coreg] 12.5 mg PO AC-BID 11/19/19 [History] Cyanocobalamin (Vitamin B-12) [Vitamin B-12] 1,000 mcg PO DAILY 11/19/19 [History] Furosemide [Lasix] 20 mg PO DAILY@1700 tab 12/05/19 [Rx] Furosemide [Lasix] 40 mg PO DAILY tab 12/05/19 [Rx] INSULIN ASPART (NovoLOG) [NovoLOG (formulary)] 0 unit SQ ACHS vial 12/05/19 [Rx] Insulin Glargine [Lantus] 20 unit SQ HS #0 12/05/19 [Rx] Losartan [Cozaar] 25 mg PO HS tab 12/05/19 [Rx] Melatonin 3 mg PO HS tablet 12/05/19 [Rx] Metoprolol Tartrate [Lopressor] 25 mg PO BID tab 12/05/19 [Rx] Midodrine [ProAmatine] 10 mg PO AC-TID tab 12/05/19 [Rx] Pantoprazole Sodium [Protonix] 40 mg PO BID #1 tablet.dr 12/05/19 [Rx] Potassium Chloride ER [K-Dur 20] 20 meq PO DAILY tab.er.prt 12/05/19 [Rx] Spironolactone [Aldactone] 25 mg PO DAILY tab 12/05/19 [Rx] lamoTRIgine [LaMICtal] 100 mg PO HS #3 tab 12/05/19 [Rx] Follow up Appointment(s)/Referral(s): Rolly Cavanaugh MD [Primary Care Provider] - As Needed Sandro Smith DO [STAFF PHYSICIAN] - 12/06/19 John Major MD [STAFF PHYSICIAN] - 1 Week Olga Navarrete MD [STAFF PHYSICIAN] - 10 Days Patient Instructions/Handouts: Acute Kidney Injury (DC), Low-Sodium Diet (DC) Activity/Diet/Wound Care/Special Instructions: CHF 1. Weigh yourself every morning after you urinate. If you gain 2-3 pounds overnight or 5 pounds in one week, call your primary physician for guidance on your medications. Keep a log of your weights. 2. Avoid salt, or foods with hidden salt. Extra salt makes your heart work harder and traps the fluid in your body for longer. 3. Take all of your medications as directed, especially your water pills. NEVER skip a dose. 4. Elevate your legs when you are not up moving around to help with circulation and prevent swelling. 5. Call your physician if you notice any extra swelling in your legs, ankles, feet or abdomen, if you have a new dry cough, if your shortness of breath worsens with activity or at rest, or if you feel more fatigued. CBC BMP-3 days CODE STATUS: DO NOT RESUSCITATE
[2019-12-05 13:03] VITALS: PULSE 62; RESP 26; TEMP 98
--- NOTE | 2019-12-05 16:56 | PN ---
PROGRESS NOTE Patient is seen for followup for acute kidney injury, mainly cardiorenal. Renal function has improved significantly. Patient is doing well. PHYSICAL EXAMINATION: This morning blood pressure is 114/54, heart rate 63 per minute, he is afebrile. Examination of the heart S1, S2. Examination of the lungs, decreased breath sounds at bases. Abdomen is soft, nontender. Examination of the lower extremities shows much improved edema. SEAM FINISHER exam grossly intact. LABS: Show sodium 134, potassium 4.0, CO2 is 38, BUN 63, serum creatinine 1.57. ASSESSMENT: 1. Acute kidney injury cardiorenal, currently improved. 2. Severe volume overload, now improved. 3. Cardiomyopathy, ejection fraction 20%-25%. 4. Congestive heart failure, systolic, acute on top of chronic, currently improving. 5. Hypokalemia, status post replacement. 6. CKD stage III secondary to nephrosclerosis. PLAN: Patient can be discharged from nephrology standpoint. He will follow up as outpatient for CKD. MMODL / IJN: [id number] /
--- NOTE | 2019-12-05 18:29 | P.PN ---
Subjective Progress Note Date: 12/05/19 Principal diagnosis: Anemia of acute blood loss, upper GI bleed, duodenal ulcers The patient is seen lying in bed denying any signs or symptoms of GI bleeding. Diet advanced today and tolerating. No abdominal pain. Objective - Vital Signs Vital signs: Vital Signs Temp 97.7 F 12/05/19 08:00 Pulse 63 12/05/19 10:00 Resp 21 12/05/19 10:00 BP 114/54 12/05/19 10:00 Pulse Ox 97 12/05/19 00:00 Intake & Output 12/04/19 12/05/19 12/05/19 18:59 06:59 18:59 Intake Total 120 340 Output Total 465 725 300 Balance -465 -605 40 Weight 114.8 kg Intake: Intake, IV Titration 100 Amount Sodium Ferric Gluconat- 100 Sucrose 125 mg In Sodium Chloride 0.9% 100 ml @ 100 mls/hr IVPB DAILY [facility] Rx#:[id number] Oral 120 240 Output: Urine 465 725 300 Other: Voiding Method Indwelling Catheter Indwelling Catheter Indwelling Catheter # Bowel Movements 1 - Exam On physical examination, patient appears comfortable in no apparent distress. HEAD: Normocephalic, atraumatic. EYES: No scleral icterus. No conjunctival injection. MOUTH: No lesions, tongue midline. NECK: Trachea midline, no gross abnormalities. ABDOMEN: Soft, obese. Bowel sounds are positive. No organomegaly. No guarding or rigidity. EXTREMITIES: No pedal edema. SKIN: No rashes, no jaundice. NEUROLOGIC: Alert and oriented x3. No focal deficits. - Labs CBC & Chem 7: 12/05/19 04:05 12/05/19 04:05 Labs: Abnormal Lab Results - Last 24 Hours (Table) 12/04/19 12/04/19 12/04/19 Range/Units 12:32 17:31 20:11 RBC (4.30-5.90) m/uL Hgb (13.0-17.5) gm/dL Hct (39.0-53.0) % MCHC (31.0-37.0) g/dL RDW (11.5-15.5) % Monocytes # (0-1.0) k/uL Sodium (137-145) mmol/L Chloride (98-107) mmol/L Carbon Dioxide (22-30) mmol/L BUN (9-20) mg/dL Creatinine (0.66-1.25) mg/dL Glucose (74-99) mg/dL POC Glucose (mg/dL) 228 H 261 H 251 H (75-99) mg/dL Calcium (8.4-10.2) mg/dL 12/05/19 12/05/19 12/05/19 Range/Units 04:05 04:05 05:25 RBC 2.89 L (4.30-5.90) m/uL Hgb 7.5 L (13.0-17.5) gm/dL Hct 25.4 L (39.0-53.0) % MCHC 29.5 L (31.0-37.0) g/dL RDW 18.3 H (11.5-15.5) % Monocytes # 1.3 H (0-1.0) k/uL Sodium 134 L (137-145) mmol/L Chloride 92 L (98-107) mmol/L Carbon Dioxide 38 H (22-30) mmol/L BUN 63 H (9-20) mg/dL Creatinine 1.57 H (0.66-1.25) mg/dL Glucose 36 L* (74-99) mg/dL POC Glucose (mg/dL) 48 L (75-99) mg/dL Calcium 8.3 L (8.4-10.2) mg/dL 12/05/19 12/05/19 Range/Units 06:03 06:29 RBC (4.30-5.90) m/uL Hgb (13.0-17.5) gm/dL Hct (39.0-53.0) % MCHC (31.0-37.0) g/dL RDW (11.5-15.5) % Monocytes # (0-1.0) k/uL Sodium (137-145) mmol/L Chloride (98-107) mmol/L Carbon Dioxide (22-30) mmol/L BUN (9-20) mg/dL Creatinine (0.66-1.25) mg/dL Glucose (74-99) mg/dL POC Glucose (mg/dL) 53 L 71 L (75-99) mg/dL Calcium (8.4-10.2) mg/dL Assessment and Plan (1) Duodenal ulcer with hemorrhage Narrative/Plan: 79-year-old male with multiple medical comorbidities being treated for fluid overload and atrial fibrillation found to have a fall in his hemoglobin. He was taken for EGD with findings of gastritis and 3 duodenal ulcers, one which was actively bleeding and treated with Endo Clip placement and epinephrine injection with hemostasis. No further signs or symptoms of GI bleeding. Hemoglobin is stable today at 7.5. Status: Acute Code(s): K26.4 - CHRONIC OR UNSPECIFIED DUODENAL ULCER WITH HEMORRHAGE SNOMED Code(s): 00030276 (2) Anemia associated with acute blood loss Status: Acute Code(s): D62 - ACUTE POSTHEMORRHAGIC ANEMIA SNOMED Code(s): 976130548 (3) GI bleed Status: Acute Code(s): K92.2 - GASTROINTESTINAL HEMORRHAGE, UNSPECIFIED SNOMED Code(s): 93215349 Plan: Supportive care Diet advance to full liquids IV iron ordered for 3 doses as laboratory evaluation is consistent with an iron deficiency anemia, exacerbated by acute GI bleed Continue Protonix 40 mg IV twice daily Avoid NSAID use Continue management of other medical comorbidities No plans for further endoscopic evaluation at this time Thank you for allowing us to participate in the care of the patient
== END 2019-12-05 13:54 | DRG 291 ==
LOC: EC 11:52 → 3SCARD 13:57 → 2SICU 11-30 10:29
PROVIDERS: ADMIT Hospitalist; ATTEND Hospitalist
PROC: 0DB78ZX Excision of Stomach, Pylorus, Via Natural or Artificial Opening Endoscopic, Diagnostic (ICD-10-PCS; principal; 2019-12-02 09:00)
PROC: 0W3P8ZZ Control Bleeding in Gastrointestinal Tract, Via Natural or Artificial Opening Endoscopic (ICD-10-PCS; principal; 2019-12-02 09:00)
PROC: 3E0G8GC Introduction of Other Therapeutic Substance into Upper GI, Via Natural or Artificial Opening Endoscopic (ICD-10-PCS; principal; 2019-12-02 09:00)
PROC: 30233N1 Transfusion of Nonautologous Red Blood Cells into Peripheral Vein, Percutaneous Approach (ICD-10-PCS; 2019-12-02 09:00)
DX: I13.0 Hypertensive heart and chronic kidney disease with heart failure and stage 1 through stage 4 chronic kidney disease, or unspecified chronic kidney disease (principal); I50.23 Acute on chronic systolic (congestive) heart failure; N17.0 Acute kidney failure with tubular necrosis; K26.4 Chronic or unspecified duodenal ulcer with hemorrhage; E87.4 Mixed disorder of acid-base balance; D62 Acute posthemorrhagic anemia; N39.0 Urinary tract infection, site not specified; I48.21 Permanent atrial fibrillation; K29.60 Other gastritis without bleeding; E11.22 Type 2 diabetes mellitus with diabetic chronic kidney disease; E66.9 Obesity, unspecified; I25.10 Atherosclerotic heart disease of native coronary artery without angina pectoris; Z66 Do not resuscitate; E78.5 Hyperlipidemia, unspecified; E86.0 Dehydration; E87.5 Hyperkalemia; E87.6 Hypokalemia; F17.210 Nicotine dependence, cigarettes, uncomplicated; K21.9 Gastro-esophageal reflux disease without esophagitis; N18.3 Chronic kidney disease, stage 3 (moderate); T50.2X5A Adverse effect of carbonic-anhydrase inhibitors, benzothiadiazides and other diuretics, initial encounter; F31.9 Bipolar disorder, unspecified; I25.5 Ischemic cardiomyopathy; Z80.8 Family history of malignant neoplasm of other organs or systems; Z80.42 Family history of malignant neoplasm of prostate; Z83.79 Family history of other diseases of the digestive system; Z98.890 Other specified postprocedural states; Z98.42 Cataract extraction status, left eye; Z98.41 Cataract extraction status, right eye; Z95.1 Presence of aortocoronary bypass graft; Z92.3 Personal history of irradiation; Z92.21 Personal history of antineoplastic chemotherapy; Z90.5 Acquired absence of kidney; Z87.442 Personal history of urinary calculi; Z85.528 Personal history of other malignant neoplasm of kidney; Z85.51 Personal history of malignant neoplasm of bladder; Z79.899 Other long term (current) drug therapy; Z79.82 Long term (current) use of aspirin; Z79.4 Long term (current) use of insulin; Z79.2 Long term (current) use of antibiotics; Z79.01 Long term (current) use of anticoagulants; Z95.810 Presence of automatic (implantable) cardiac defibrillator; Z68.34 Body mass index [BMI] 34.0-34.9, adult
CPT/HCPCS: 36410; 36415; 43239; 43243; 43255; 71045; 71046; 76770; 76937; 80048; 80053; 81001; 82550; 83540; 83550; 83605; 83735; 83880; 84100; 84132; 84145; 84484; 85025; 85027; 85610; 85730; 86704; 86706; 86850; 86900; 86901; 86920; 87086; 87340; 88305; 93005; 96361; 96374; 99291

== ENCOUNTER 2020-03-08 15:59 | Inpatient (IN) | payer MEDICARE, BC ==
[2020-03-08] MEDS ORDERED: SODIUM CHLORIDE 0.9% 500 ML 500 ML IV STA (16:50)
[2020-03-08] MEDS ORDERED: ACETAMINOPHEN TAB 500 MG TAB PO STA (16:55)
--- NOTE | 2020-03-08 17:03 | ED ---
General Adult HPI - General Chief complaint: Shortness of Breath Stated complaint: Fever, weakness, low O2, vomitting, high sugar Time Seen by Provider: 03/08/20 16:30 Source: patient, family, RN notes reviewed Mode of arrival: ambulatory Limitations: no limitations - History of Present Illness Initial comments: Patient is a pleasant 79-year-old male presenting to the emergency Department with complaints of fatigue and difficulty breathing. Symptoms present over the past week. Patient does feel somewhat short of breath. Occasional cough. Patient does have leg edema that is increased from normal. Patient does have history of atrial fibrillation and CHF. Blood sugars have been running in the mid 300s. Patient did have borderline fever yesterday. - Related Data Home Medications Medication Instructions Recorded Confirmed Atorvastatin [Lipitor] 80 mg PO HS 11/19/19 03/08/20 Cyanocobalamin (Vitamin B-12) 1,000 mcg PO DAILY 11/19/19 03/08/20 [Vitamin B-12] Apixaban [Eliquis] 2.5 mg PO BID 03/08/20 03/08/20 Carvedilol [Coreg] 12.5 mg PO BID-W/MEALS 03/08/20 03/08/20 Cholecalciferol [Vitamin D3 (25 1,000 unit PO DAILY 03/08/20 03/08/20 Mcg = 1000 Iu)] Ferrous Sulfate [Feosol] 325 mg PO DAILY 03/08/20 03/08/20 Furosemide [Lasix] 40 mg PO DAILY@1500 03/08/20 03/08/20 Furosemide [Lasix] 80 mg PO QAM 03/08/20 03/08/20 Insulin Glargine [Lantus] 46 unit SQ HS 03/08/20 03/08/20 Midodrine [ProAmatine] 10 mg PO TID@0700,1100,1600 03/08/20 03/08/20 Pantoprazole Sodium [Protonix] 40 mg PO W/BRKFST 03/08/20 03/08/20 metFORMIN HCL [Glucophage] 1,000 mg PO BID 03/08/20 03/08/20 Previous Rx's Medication Instructions Recorded Venlafaxine HCl [Effexor] 75 mg PO BID tab 10/07/19 Losartan [Cozaar] 25 mg PO HS tab 12/05/19 Melatonin 3 mg PO HS tablet 12/05/19 Metoprolol Tartrate [Lopressor] 25 mg PO BID tab 12/05/19 Spironolactone [Aldactone] 25 mg PO DAILY tab 12/05/19 lamoTRIgine [LaMICtal] 100 mg PO HS #3 tab 12/05/19 Allergies Allergy/AdvReac Type Severity Reaction Status Date / Time No Known Allergies Allergy Verified 03/08/20 18:00 Review of Systems ROS Statement: Those systems with pertinent positive or pertinent negative responses have been documented in the HPI. ROS Other: All systems not noted in ROS Statement are negative. Constitutional: Denies: fever Eyes: Denies: eye pain ENT: Denies: ear pain Respiratory: Reports: cough, dyspnea Cardiovascular: Denies: chest pain, palpitations Endocrine: Reports: fatigue Gastrointestinal: Reports: nausea. Denies: abdominal pain Genitourinary: Denies: dysuria Musculoskeletal: Denies: back pain Skin: Denies: rash Neurological: Denies: weakness Past Medical History Past Medical History: Atrial Fibrillation, Coronary Artery Disease (CAD), Cancer , Heart Failure, Diabetes Mellitus, GERD/Reflux, Hyperlipidemia Additional Past Medical History / Comment(s): See Dr Vargas's H&P, hx kidney and bladder cancer- tx with chemo and radiation 2012, "growth on kidney", history of CABG, cardiomyopathy, AICD implantation ULCER, KIDNEY STONES History of Any Multi-Drug Resistant Organisms: None Reported Past Surgical History: Bladder Surgery, Heart Catheterization, Orthopedic Surgery Additional Past Surgical History / Comment(s): Port-a-cath insertion/later removed. Bilateral cataract , ORIF R ankle with 2 screws,"scraped the bladder" 06-02-16 TOTAL RT KNEE,growth on kidney removed Past Anesthesia/Blood Transfusion Reactions: No Reported Reaction Additional Past Anesthesia/Blood Transfusion Reaction / Comment(s): Pt has never recieved blood. Past Psychological History: Bipolar, Depression Past Drug Use History: None Reported - Past Family History Father Family Medical History: Cancer Additional Family Medical History / Comment(s): prostate Mother Family Medical History: No Reported History Additional Family Medical History / Comment(s): Mother had bowel perforations. She at 88 yrs of age. Brother(s) Family Medical History: Cancer Sister(s) Family Medical History: Cancer General Exam Limitations: no limitations General appearance: alert, in no apparent distress Head exam: Present: normocephalic Eye exam: Present: normal appearance Neck exam: Present: normal inspection Respiratory exam: Present: decreased breath sounds Cardiovascular Exam: Present: tachycardia, irregular rhythm GI/Abdominal exam: Present: soft. Absent: tenderness Extremities exam: Present: pedal edema (+3 bilateral). Absent: calf tenderness Neurological exam: Present: alert. Absent: motor sensory deficit Psychiatric exam: Present: normal affect, normal mood Skin exam: Present: normal color Course Vital Signs 03/08/20 03/08/20 03/08/20 16:20 17:19 17:34 Temperature 98.9 F Pulse Rate 136 H 137 H 133 H Respiratory 24 18 18 Rate Blood Pressure 78/43 83/57 80/42 O2 Sat by Pulse 98 98 97 Oximetry 03/08/20 03/08/20 03/08/20 18:50 19:27 20:23 Temperature 98.7 F Pulse Rate 133 H 97 Respiratory 18 Rate Blood Pressure 83/52 81/54 69/47 O2 Sat by Pulse 98 98 Oximetry - Reevaluation(s) Reevaluation #1: 03/08/20 19:28 Patient ordered 2 L fluid bolus off of ideal body weight is 67 kg which comes out to 2 L. 03/08/20 20:22 There is concern for septic shock diagnosed at 20 00. Blood culture and lactic acid were ordered. IV antibiotics were ordered. Central line was placed. Levophed ordered. Blood pressure remains 74 systolic at this time. EKG Findings - EKG Comments: EKG Findings:: EKG shows rate 134 with a QRS of 122. Regular rhythm with supraventricular appearance. QT 342. QTC 510. Left axis. Nonspecific intr aventricular conduction delay. Lateral ST depression. Procedures - Procedures Initial comment: Patient given adenosine for chemical cardioversion for possible SVT. When heart rate slowed down a did have underlying atrial fibrillation. Heart rate has returned to 125. - Central Line Placement Right Femoral Consent Obtained: verbal consent, written consent, emergent situation Patient Placed on Monitor/Pulse Ox: Yes MD Prep: mask, gown, gloves Central Line Prep: Chlorhexidine scrub Local Anesthesia Used: Lidocaine 1% Amount of Anesthesia Used (mls): 2 Ultrasound Used for Placement: No Central Line Lumen Inserted: triple Central Line Position: good blood return, all ports aspirated, flushed, capped, sutured in place with 3-0 nylon Dressing Applied: Tegaderm Patient Tolerated Procedure: well, no complications Complications: none - Sepsis Sepsis Focused Exam #1 Time Sepsis Criteria Met: 20:00 Sepsis Focused Exam Date: 03/08/20 Sepsis Focused Exam Time: 21:04 Sepsis Focused Exam Complete: Yes Vital Signs & RN Notes Reviewed: Yes Capillary Refill: < 2 Seconds: Fingers, Toes Peripheral Pulses: Normal: Radial (R), Radial (L) Skin Color: Normal for Patient Respiratory Exam: normal lung sounds Cardiovascular Exam: tachycardia Medical Decision Making - Medical Decision Making Patient reevaluated several times. Patient and family are updated on results an d plan. Case was discussed in detail with Dr. Lopez, who will admit for Dr. Poe, who admits for Dr. Cavanaugh. Case was also discussed in detail with Dr. Rivers who will consult for critical care. He does request 1 more liter of IV fluids and agrees with Levaphed - Lab Data Result diagrams: 03/08/20 16:57 03/08/20 16:56 Lab Results 03/08/20 03/08/20 03/08/20 Range/Units 16:56 16:57 16:57 WBC 5.3 (3.8-10.6) k/uL RBC 3.22 L (4.30-5.90) m/uL Hgb 9.5 L (13.0-17.5) gm/dL Hct 29.6 L (39.0-53.0) % MCV 91.9 (80.0-100.0) fL MCH 29.5 (25.0-35.0) pg MCHC 32.1 (31.0-37.0) g/dL RDW 17.3 H (11.5-15.5) % Plt Count 147 L (150-450) k/uL Neutrophils % 87 % Lymphocytes % 5 % Monocytes % 5 % Eosinophils % 0 % Basophils % 0 % Neutrophils # 4.6 (1.3-7.7) k/uL Lymphocytes # 0.3 L (1.0-4.8) k/uL Monocytes # 0.3 (0-1.0) k/uL Eosinophils # 0.0 (0-0.7) k/uL Basophils # 0.0 (0-0.2) k/uL Hypochromasia Moderate Anisocytosis Slight PT 11.5 (9.0-12.0) sec INR 1.1 (<1.2) APTT 28.3 (22.0-30.0) sec Sodium 132 L (137-145) mmol/L Potassium 4.7 (3.5-5.1) mmol/L Chloride 100 (98-107) mmol/L Carbon Dioxide 14 L (22-30) mmol/L Anion Gap 18 mmol/L BUN 71 H (9-20) mg/dL Creatinine 2.98 H (0.66-1.25) mg/dL Est GFR (CKD-EPI)AfAm 22 (>60 ml/min/1.73 sqM) Est GFR (CKD-EPI)NonAf 19 (>60 ml/min/1.73 sqM) Glucose 392 H (74-99) mg/dL Lactic Ac Sepsis Rflx Plasma Lactic Acid Rodriguez (0.7-2.0) mmol/L Calcium 8.9 (8.4-10.2) mg/dL Magnesium 1.6 (1.6-2.3) mg/dL Total Bilirubin 0.8 (0.2-1.3) mg/dL AST 21 (17-59) U/L ALT 12 (4-49) U/L Alkaline Phosphatase 90 (38-126) U/L Creatine Kinase 87 (55-170) U/L Troponin I (0.000-0.034) ng/mL NT-Pro-B Natriuret Pep pg/mL Total Protein 6.1 L (6.3-8.2) g/dL Albumin 3.2 L (3.5-5.0) g/dL Urine Color Urine Appearance (Clear) Urine pH (5.0-8.0) Ur Specific [place] (1.001-1.035) Urine Protein (Negative) Urine Glucose (UA) (Negative) Urine Ketones (Negative) Urine Blood (Negative) Urine Nitrite (Negative) Urine Bilirubin (Negative) Urine Urobilinogen (<2.0) mg/dL Ur Leukocyte Esterase (Negative) Urine RBC (0-5) /hpf Urine WBC (0-5) /hpf Amorphous Sediment (None) /hpf Urine Bacteria (None) /hpf Acetone, Qual Negative (Negative) 07/24/20 07/24/20 07/24/20 Range/Units 16:57 16:57 16:57 WBC (3.8-10.6) k/uL RBC (4.30-5.90) m/uL Hgb (13.0-17.5) gm/dL Hct (39.0-53.0) % MCV (80.0-100.0) fL MCH (25.0-35.0) pg MCHC (31.0-37.0) g/dL RDW (11.5-15.5) % Plt Count (150-450) k/uL Neutrophils % % Lymphocytes % % Monocytes % % Eosinophils % % Basophils % % Neutrophils # (1.3-7.7) k/uL Lymphocytes # (1.0-4.8) k/uL Monocytes # (0-1.0) k/uL Eosinophils # (0-0.7) k/uL Basophils # (0-0.2) k/uL Hypochromasia Anisocytosis PT (9.0-12.0) sec INR (<1.2) APTT (22.0-30.0) sec Sodium (137-145) mmol/L Potassium (3.5-5.1) mmol/L Chloride (98-107) mmol/L Carbon Dioxide (22-30) mmol/L Anion Gap mmol/L BUN (9-20) mg/dL Creatinine (0.66-1.25) mg/dL Est GFR (CKD-EPI)AfAm (>60 ml/min/1.73 sqM) Est GFR (CKD-EPI)NonAf (>60 ml/min/1.73 sqM) Glucose (74-99) mg/dL Lactic Ac Sepsis Rflx Plasma Lactic Acid Rodriguez 5.4 H* (0.7-2.0) mmol/L Calcium (8.4-10.2) mg/dL Magnesium (1.6-2.3) mg/dL Total Bilirubin (0.2-1.3) mg/dL AST (17-59) U/L ALT (4-49) U/L Alkaline Phosphatase (38-126) U/L Creatine Kinase (55-170) U/L Troponin I 0.048 H* (0.000-0.034) ng/mL NT-Pro-B Natriuret Pep 59122 pg/mL Total Protein (6.3-8.2) g/dL Albumin (3.5-5.0) g/dL Urine Color Urine Appearance (Clear) Urine pH (5.0-8.0) Ur Specific [place] (1.001-1.035) Urine Protein (Negative) Urine Glucose (UA) (Negative) Urine Ketones (Negative) Urine Blood (Negative) Urine Nitrite (Negative) Urine Bilirubin (Negative) Urine Urobilinogen (<2.0) mg/dL Ur Leukocyte Esterase (Negative) Urine RBC (0-5) /hpf Urine WBC (0-5) /hpf Amorphous Sediment (None) /hpf Urine Bacteria (None) /hpf Acetone, Qual (Negative) 03/08/20 03/08/20 03/08/20 Range/Units 17:42 19:09 19:50 WBC (3.8-10.6) k/uL RBC (4.30-5.90) m/uL Hgb (13.0-17.5) gm/dL Hct (39.0-53.0) % MCV (80.0-100.0) fL MCH (25.0-35.0) pg MCHC (31.0-37.0) g/dL RDW (11.5-15.5) % Plt Count (150-450) k/uL Neutrophils % % Lymphocytes % % Monocytes % % Eosinophils % % Basophils % % Neutrophils # (1.3-7.7) k/uL Lymphocytes # (1.0-4.8) k/uL Monocytes # (0-1.0) k/uL Eosinophils # (0-0.7) k/uL Basophils # (0-0.2) k/uL Hypochromasia Anisocytosis PT (9.0-12.0) sec INR (<1.2) APTT (22.0-30.0) sec Sodium (137-145) mmol/L Potassium (3.5-5.1) mmol/L Chloride (98-107) mmol/L Carbon Dioxide (22-30) mmol/L Anion Gap mmol/L BUN (9-20) mg/dL Creatinine (0.66-1.25) mg/dL Est GFR (CKD-EPI)AfAm (>60 ml/min/1.73 sqM) Est GFR (CKD-EPI)NonAf (>60 ml/min/1.73 sqM) Glucose (74-99) mg/dL Lactic Ac Sepsis Rflx Y Plasma Lactic Acid Rodriguez 2.6 H* (0.7-2.0) mmol/L Calcium (8.4-10.2) mg/dL Magnesium (1.6-2.3) mg/dL Total Bilirubin (0.2-1.3) mg/dL AST (17-59) U/L ALT (4-49) U/L Alkaline Phosphatase (38-126) U/L Creatine Kinase (55-170) U/L Troponin I (0.000-0.034) ng/mL NT-Pro-B Natriuret Pep pg/mL Total Protein (6.3-8.2) g/dL Albumin (3.5-5.0) g/dL Urine Color Yellow Urine Appearance Cloudy (Clear) Urine pH 5.5 (5.0-8.0) Ur Specific [place] 1.014 (1.001-1.035) Urine Protein 2+ H (Negative) Urine Glucose (UA) Negative (Negative) Urine Ketones Negative (Negative) Urine Blood Moderate H (Negative) Urine Nitrite Negative (Negative) Urine Bilirubin Negative (Negative) Urine Urobilinogen <2.0 (<2.0) mg/dL Ur Leukocyte Esterase Large H (Negative) Urine RBC 6 H (0-5) /hpf Urine WBC 114 H (0-5) /hpf Amorphous Sediment Rare H (None) /hpf Urine Bacteria Few H (None) /hpf Acetone, Qual (Negative) - Radiology Data Radiology results: image reviewed (Two-view chest x-ray shows pleural diaphragmatic scarring left base unchanged.) Critical Care Time Critical Care Time: Yes Total Critical Care Time: 45 Disposition Clinical Impression: Congestive heart failure, UTI (urinary tract infection), Septic shock, Hyper glycemia, Dehydration Disposition: ADMITTED IP TO THIS HOSP Condition: Critical Is patient prescribed a controlled substance at d/c from ED?: No Referrals: Rolly Cavanaugh MD [Primary Care Provider] - 1-2 days Decision Time: 20:23
[2020-03-08 17:06] LABS: Anisocytosis Slight; Basophils % (A) 0 %; Eosinophils % (A) 0 %; HCT 29.6 % (39.0-53.0); HGB 9.5 gm/dL (13.0-17.5); Hypochromasia Moderate; Lymphocytes # (A) 0.3 k/uL (1.0-4.8); Lymphocytes % (A) 5 %; MCH 29.5 pg (25.0-35.0); MCHC 32.1 g/dL (31.0-37.0); MCV 91.9 fL (80.0-100.0); Mean Platelet Volume 9.1; Monocytes # (A) 0.3 k/uL (0-1.0); Monocytes % (A) 5 %; Neutrophils # (A) 4.6 k/uL (1.3-7.7); Neutrophils % (A) 87 %; Platelet Count 147 k/uL (150-450); RBC 3.22 m/uL (4.30-5.90); RDW 17.3 % (11.5-15.5); WBC 5.3 k/uL (3.8-10.6)
[2020-03-08 17:15] LABS: INR 1.1 (<1.2); Partial Thromboplastin Time 28.3 sec (22.0-30.0); Prothrombin Time 11.5 sec (9.0-12.0)
[2020-03-08 17:17] LABS: ALT 12 U/L (4-49); AST 21 U/L (17-59); African American GFR (CKD) 22 (>60 ml/min/1.73 sqM); Albumin 3.2 g/dL (3.5-5.0); Alkaline Phosphatase 90 U/L (38-126); Anion Gap 18 mmol/L; Blood Urea Nitrogen 71 mg/dL (9-20); Calcium 8.9 mg/dL (8.4-10.2); Carbon Dioxide 14 mmol/L (22-30); Chloride 100 mmol/L (98-107); Creatine Kinase 87 U/L (55-170); Glucose 392 mg/dL (74-99); Magnesium 1.6 mg/dL (1.6-2.3); Non-African American GFR(CKD) 19 (>60 ml/min/1.73 sqM); Potassium 4.7 mmol/L (3.5-5.1); Sodium 132 mmol/L (137-145); Total Bilirubin 0.8 mg/dL (0.2-1.3); Total Protein 6.1 g/dL (6.3-8.2)
--- NOTE | 2020-03-08 17:26 | XR ---
EXAMINATION TYPE: XR chest 2V DATE OF EXAM: 03/08/2020 COMPARISON: 11/30/2019 HISTORY: Difficulty breathing TECHNIQUE: FINDINGS: There is some coarsening of interstitial markings. There are sternal wires. There is no ez ss heart failure. There is slight blunting of left costophrenic angle unchanged. There is left axilla ry pacemaker. There are chest leads. IMPRESSION: There is pleural diaphragmatic scarring at the left lung base. Unchanged. CT scan abdomen and pelvis. History acute abdominal pain. Nausea and vomiting for 1 1/2 weeks. Coarse pulmonary interstitial dens ity probably due to pulmonary fibrosis unchanged. No significant pleural fluid seen to suggest heart failure. The pulmonary vascularity is improved compared to last exam.
[2020-03-08] MEDS ORDERED: SODIUM CHLORIDE 0.9% 500 ML 500 ML IV ONE (17:30)
[2020-03-08] MEDS ORDERED: SODIUM CHLORIDE 0.9% 1,000 ML IV STA ×2 (18:10→20:25)
[2020-03-08] MEDS ORDERED: ADENOSINE 3 MG/ML 2 ML VIAL IVP STA (18:54)
[2020-03-08 19:24] LABS: Amorphous Sediment,Urine Rare /hpf; Appearance,Urine Cloudy (Clear); Bacteria,Urine Few /hpf; Bilirubin,Urine Negative (Negative); Blood,Urine Moderate (Negative); Color,Urine Yellow; Glucose,Urine (UA) Negative (Negative); Ketones,Urine Negative (Negative); Leukocyte Esterase,Urine Large (Negative); Nitrite,Urine Negative (Negative); PH, Urine 5.5 (5.0-8.0); Protein,Urine 2+ (Negative); RBC,Urine 6 /hpf (0-5); Specific Gravity,Urine 1.014 (1.001-1.035); Urobilinogen,Urine <2.0 mg/dL (<2.0); WBC,Urine 114 /hpf (0-5)
[2020-03-08] MEDS ORDERED: SODIUM CHLORIDE 0.9% 250 ML IV STA (19:28)
[2020-03-08] MEDS ORDERED: HYDROmorphone 0.5 MG/0.5 ML SYRINGE IVP PRN (19:40)
[2020-03-08] MEDS ORDERED: HYDROcodone/APAP 5-325MG 1 EACH TAB PO PRN (19:40)
[2020-03-08] MEDS ORDERED: ACETAMINOPHEN TAB 325 MG TAB PO PRN (20:36)
[2020-03-08] MEDS ORDERED: NALOXONE 0.4 MG/ML 1 ML VIAL IV PRN (20:36)
[2020-03-08] MEDS: PANTOPRAZOLE 40 MG/10 ML VIAL IVP SCH (20:55)
[2020-03-08] MEDS: NOREPINEPHRINE 32 MG in SODIUM CHLORIDE 0.9% 218 ML IV SCH (20:59)
[2020-03-08] MEDS ORDERED: INSULIN GLARGINE SQ SCH (21:00)
[2020-03-08] MEDS ORDERED: INSULIN DETEMIR (LEVEMIR) 100 UNIT/ML SYR SQ SCH (21:04)
--- NOTE | 2020-03-08 21:04 | HP ---
HISTORY AND PHYSICAL DATE OF SERVICE: 03/08/2020 CHIEF COMPLAINT: Shortness of breath. HISTORY OF PRESENT ILLNESS: This 79-year-old gentleman with a past medical history of multiple medical problems, including history of atrial fibrillation, history of CAD, history of CHF, diabetes mellitus, GERD, hyperlipidemia, being followed by Dr. Cavanaugh in the outpatient setting, was complaining of shortness of breath. The patient came to [facility] and was admitted for further evaluation and treatment. Patient also had some fever, low blood pressure. Patient also was found to have tachycardia at the rate of 130, possibly superventricular tachycardia versus atrial fibrillation. The sugar was also elevated at 392. The patient was admitted for further evaluation, with the possibility of sepsis, also. The chest x-ray showed some evidence of CHF. There is no history of any rigor or chills. No history of headache, loss of consciousness, seizures. PAST MEDICAL HISTORY: Atrial fibrillation, CAD, CHF, diabetes mellitus, type 2, GERD, hyperlipidemia. HOME MEDICATIONS: Lamictal, Effexor, iron sulfate, vitamin D3, Glucophage, Protonix, Lasix, Coreg, Eliquis, Lantus, Aldactone, ProAmatine, Lopressor, melatonin, Cozaar, vitamin B2, Lipitor. ALLERGIES: NONE. FAMILY HISTORY: History of carcinoma of the prostate. SOCIAL HISTORY: Previous history of smoking. No current smoking or alcohol intake. REVIEW OF SYSTEMS: ENT: Diminished hearing. Diminished vision. CARDIOVASCULAR SYSTEM: As mentioned earlier. RESPIRATORY SYSTEM: As mentioned earlier. GI: No nausea, vomiting. : No dysuria or retention. NERVOUS SYSTEM: No numbness, weakness. ALLERGY/IMMUNOLOGY: No asthma, hayfever. MUSCULOSKELETAL: As mentioned earlier. HEMATOLOGY/ONCOLOGY: No history of anemia. ENDOCRINE: No history of diabetes, hypothyroidism. CONSTITUTIONAL: As mentioned earlier. DERMATOLOGY: Negative. RHEUMATOLOGY: Negative. PSYCHIATRY: As mentioned earlier. PHYSICAL EXAMINATION: Patient alert, oriented x3. Pulse is 133, irregular. Blood pressure is 81/42, respiration 18, temperature 98.7, pulse ox 98% on 2 L. HEENT: Conjunctivae normal. NECK: No jugular venous distention. CARDIOVASCULAR SYSTEM: S1, S2 muffled. RESPIRATORY SYSTEM: Breath sounds diminished at the bases. A few scattered rhonchi and crackles. ABDOMEN: Soft, obese, non-tender. LEGS: Bilateral leg edema. NERVOUS SYSTEM: Higher functions as mentioned earlier. Moves all 4 limbs. Mild diffuse weakness. LYMPHATICS: No lymph node palpable in neck, axillae or groin. NAUSEA SKIN: No ulcer, rash, bleeding. JOINTS: No active deforming arthropathy. LABS: WBC 5.3, hemoglobin 9.5, platelets 147. Sodium 132, creatinine 2.98. Plasma lactic acid 5.4. Troponin 0.048. UA noted. ASSESSMENT: 1. Shortness of breath; possibly congestive heart failure, acute exacerbation; ejection fraction unknown. 2. Possibly acute urinary tract infection with sepsis, present on admission. 3. Elevated lactic acid secondary to sepsis. 4. Diabetes mellitus, type 2, uncontrolled with hyperglycemia with no evidence of any diabetic ketoacidosis. 5. Hyponatremia. 6. Anemia, normocytic anemia of chronic disease. 7. History atrial fibrillation. 8. History of coronary artery disease. 9. History of diabetes mellitus, type 2. 10.History of gastroesophageal reflux disease. 11.Hyperlipidemia. 12.History of bladder cancer and chemoradiation. 13.Bilateral leg edema. 14.Bipolar depression. 15.Remote history of nicotine dependence. 16.Obesity with body mass index of 34.8. 17.FULL CODE. RECOMMENDATIONS AND DISCUSSION: In this 79-year-old gentleman who presented with multiple complex medical issues, we will monitor the patient closely, continue the current medications, continue symptomatic treatment. I would recommend IV diuretics and broad-spectrum IV antibiotics. Monitor blood sugars closely. Otherwise, we will consult Infectious Disease, Pulmonary and Cardiology. Overall prognosis is extremely guarded because of multiple complex medical issues. Further recommendations to follow. See orders for further details. Home medication will be resumed after complete. MMODL / IJN: [id number] / [facility] BROTHERS MEDICAL CENTERJacy
[2020-03-08 21:46] LABS: Glucose,Whole Blood 319 mg/dL (75-99)
[2020-03-08] MEDS: INSULIN ASPART (NovoLOG) 100 UNIT/ML VIAL SQ SCH (22:41)
[2020-03-08] MEDS: IPRATROPIUM-ALBUTEROL 3 ML NEB INHALATION SCH (23:05)
[2020-03-08 23:22] LABS: Glucose,Whole Blood 304 mg/dL (75-99)
[2020-03-08] MEDS ORDERED: LOSARTAN 25 MG TAB PO SCH (23:30)
[2020-03-09] MEDS: FUROSEMIDE 10 MG/ML 4 ML VIAL IV SCH ×3 (00:02→17:42)
[2020-03-09] MEDS: VENLAFAXINE HCL 75 MG TAB PO SCH ×3 (00:03→21:30)
[2020-03-09] MEDS: APIXABAN 2.5 MG TABLET PO SCH ×3 (00:03→21:31)
[2020-03-09] MEDS: MELATONIN 3 MG TABLET PO SCH ×2 (00:03→21:31)
[2020-03-09] MEDS: lamoTRIgine 100 MG TAB PO SCH ×2 (00:04→21:30)
[2020-03-09] MEDS ORDERED: AMIODARONE 360 MG in DEXTROSE 5% IN WATER 200 ML IV ONE ×4 (03:30→10:10)
[2020-03-09] MEDS ORDERED: DEXTROSE 5% IN WATER 100 ML with AMIODARONE 150 MG IV ONE ×2 (03:30→10:00)
[2020-03-09 06:53] LABS: Anisocytosis Slight; Basophils % (A) 0 %; Eosinophils % (A) 0 %; HCT 29.5 % (39.0-53.0); HGB 9.2 gm/dL (13.0-17.5); Hypochromasia Moderate; Lymphocytes # (A) 0.3 k/uL (1.0-4.8); Lymphocytes % (A) 4 %; MCH 28.2 pg (25.0-35.0); MCHC 31.1 g/dL (31.0-37.0); MCV 90.7 fL (80.0-100.0); Mean Platelet Volume 8.4; Monocytes # (A) 0.3 k/uL (0-1.0); Monocytes % (A) 6 %; Neutrophils # (A) 5.1 k/uL (1.3-7.7); Neutrophils % (A) 87 %; Platelet Count 134 k/uL (150-450); RBC 3.25 m/uL (4.30-5.90); RDW 17.3 % (11.5-15.5); WBC 5.9 k/uL (3.8-10.6)
[2020-03-09 07:13] LABS: Calcium 8.2 mg/dL (8.4-10.2); Magnesium 1.5 mg/dL (1.6-2.3); Potassium 4.6 mmol/L (3.5-5.1)
[2020-03-09] MEDS: INSULIN ASPART (NovoLOG) 100 UNIT/ML VIAL SQ SCH ×4 (07:17→21:31)
[2020-03-09] MEDS: MIDODRINE 5 MG TAB PO SCH ×3 (07:17→17:42)
--- NOTE | 2020-03-09 07:18 | XR ---
EXAMINATION TYPE: XR chest 1V portable DATE OF EXAM: 03/09/2020 HISTORY: CHF. REFERENCE: Previous study dated 03/08/2020. FINDINGS: There is been a midline sternotomy. There is unipolar pacemaker place on the left. The heart is enlarged. There is apparent elevation of the left hemidiaphragm. There is a small left e ffusion. There are bibasilar changes of atelectasis or early infiltrate. This may have worsened sligh tly on the right. IMPRESSION: 1. CARDIOMEGALY. 2. BIBASILAR INFILTRATE, WORSE ON THE RIGHT AND THE LEFT. 3. LEFT-SIDED EFFUSION. I SUSPECT A SMALLER RIGHT-SIDED EFFUSION.
[2020-03-09 07:30] LABS: Glucose,Whole Blood 291 mg/dL (75-99)
[2020-03-09] MEDS: IPRATROPIUM-ALBUTEROL 3 ML NEB INHALATION SCH ×3 (08:32→20:29)
[2020-03-09] MEDS: PANTOPRAZOLE 40 MG/10 ML VIAL IVP SCH (08:47)
[2020-03-09] MEDS: SPIRONOLACTONE 25 MG TAB PO SCH (08:47)
[2020-03-09] MEDS ORDERED: AMIODARONE 300 MG in DEXTROSE 5% IN WATER 250 ML IV SCH ×2 (09:30)
[2020-03-09] MEDS: HEPARIN SOD,PORK IN 0.45% NACL 25,000 UNIT in 0.45% NACL 1 250ML.BAG IV SCH (10:22)
[2020-03-09] MEDS: AMIODARONE 360 MG in DEXTROSE 5% IN WATER 200 ML IV SCH ×4 (10:23→17:42)
[2020-03-09 12:15] LABS: Glucose,Whole Blood 280 mg/dL (75-99)
--- NOTE | 2020-03-09 12:34 | P.CNPUL ---
History of Present Illness Consult date: 03/09/20 Requesting physician: Ricky Lopez Reason for consult: other (Sepsis and congestive heart failure) Chief complaint: Shortness of breath. History of present illness: This is an 79-year-old white male with history of multiple medical problems including chronic atrial fibrillation, coronary artery disease, type 2 diabetes, dyslipidemia, patient is primarily a patient of Dr. Cavanaugh. Patient came into the ER yesterday complaining of few days' history of shortness of breath, low- grade fever, and upon evaluation in the ER he was noted to be relatively hypotensive, tachycardic with a rate of 130, he was in atrial fibrillation with RVR. Blood sugar was 392, and he was noted to have evidence of urinary tract infection. Although the patient has no urinary complaints. Chest x-ray showed evidence of interstitial edema. Considering the patient was hypotensive, he did receive 2 L of fluids boluses, he was given antibiotics for presumptive urinary tract infection and sepsis. Patient was admitted to the ICU, and I was asked to see him on consultation. Patient is known to have severe LV dysfunction, ejection fraction is 20% or less. He is also known to have history of previous myocardial revascularization, CABG 5. Presently on amiodarone for his atrial fibrillation with RVR, he is also on norepinephrine at 0.06 mcg/kg/m, IV fluids at 50 MLS per hour, and he is also on Rocephin. Patient is improving, feeling much better since he was admitted. Initial report on his blood cultures is positive for gram-negative rods in the blood. Review of Systems Constitutional: Weakness, low-grade fever. No weight loss. HEENT: Diminished hearing and diminished vision. Cardiac: As noted in HPI. Pulmonary: Some shortness of breath no cough no wheezing no chest pain, no hemoptysis. GI: Denies any nausea vomiting abdominal pain diarrhea melena or hematemesis. Genitourinary patient had no symptoms related to his UTI no dysuria and no frequency no urgency no hematuria. Musculoskeletal: Negative Hematologic: Negative Psychiatric: Negative Skin: Negative Neurologic: Negative ALLERGIC: Negative Endocrine: Negative Past Medical History Past Medical History: Atrial Fibrillation, Coronary Artery Disease (CAD), Cancer, Heart Failure, Diabetes Mellitus, GERD/Reflux, Hyperlipidemia, Renal Disease Additional Past Medical History / Comment(s): See Dr Gundlapalli's H&P, hx kidney and bladder cancer- tx with chemo and radiation 2012, "growth on kidney", history of CABG, cardiomyopathy, AICD implantation ULCER, KIDNEY STONES History of Any Multi-Drug Resistant Organisms: None Reported Past Surgical History: Bladder Surgery, Heart Catheterization, Orthopedic Surgery Additional Past Surgical History / Comment(s): Port-a-cath insertion/later removed. Bilateral cataract , ORIF R ankle with 2 screws,"scraped the bladder" 06-02-16 TOTAL RT KNEE,growth on kidney removed Past Anesthesia/Blood Transfusion Reactions: No Reported Reaction Additional Past Anesthesia/Blood Transfusion Reaction / Comment(s): Pt has never recieved blood. Past Psychological History: Bipolar, Depression Additional Psychological History / Comment(s): Pt is bipolar and states he does well with his medications. Smoking Status: Former smoker Past Alcohol Use History: None Reported Additional Past Alcohol Use History / Comment(s): Pt states he started smoking at age 15. He quit sometime in the or maybe even sooner. He was less than a pack a day smoker. Past Drug Use History: None Reported - Past Family History Father Family Medical History: Cancer Additional Family Medical History / Comment(s): prostate Mother Family Medical History: No Reported History Additional Family Medical History / Comment(s): Mother had bowel perforations. She at 88 yrs of age. Brother(s) Family Medical History: Cancer Sister(s) Family Medical History: Cancer Medications and Allergies Home Medications Medication Instructions Recorded Confirmed Type Venlafaxine HCl [Effexor] 75 mg PO BID tab 10/07/19 03/08/20 Rx Atorvastatin [Lipitor] 80 mg PO HS 11/19/19 03/08/20 History Cyanocobalamin (Vitamin B-12) 1,000 mcg PO DAILY 11/19/19 03/08/20 History [Vitamin B-12] Losartan [Cozaar] 25 mg PO HS tab 12/05/19 03/08/20 Rx Melatonin 3 mg PO HS tablet 12/05/19 03/08/20 Rx Metoprolol Tartrate [Lopressor] 25 mg PO BID tab 12/05/19 03/08/20 Rx Spironolactone [Aldactone] 25 mg PO DAILY tab 12/05/19 03/08/20 Rx lamoTRIgine [LaMICtal] 100 mg PO HS #3 tab 12/05/19 03/08/20 Rx Apixaban [Eliquis] 2.5 mg PO BID 03/08/20 03/08/20 History Carvedilol [Coreg] 12.5 mg PO BID-W/MEALS 03/08/20 03/08/20 History Cholecalciferol [Vitamin D3 (25 1,000 unit PO DAILY 03/08/20 03/08/20 History Mcg = 1000 Iu)] Ferrous Sulfate [Feosol] 325 mg PO DAILY 03/08/20 03/08/20 History Furosemide [Lasix] 40 mg PO DAILY@1500 03/08/20 03/08/20 History Furosemide [Lasix] 80 mg PO QAM 03/08/20 03/08/20 History Insulin Glargine [Lantus] 46 unit SQ HS 03/08/20 03/08/20 History Midodrine [ProAmatine] 10 mg PO TID@0700,1100,1600 03/08/20 03/08/20 History Pantoprazole Sodium [Protonix] 40 mg PO W/BRKFST 03/08/20 03/08/20 History metFORMIN HCL [Glucophage] 1,000 mg PO BID 03/08/20 03/08/20 History Allergies Allergy/AdvReac Type Severity Reaction Status Date / Time No Known Allergies Allergy Verified 03/08/20 18:00 Physical Exam Vitals: Vital Signs Temp Pulse Resp BP Pulse Ox 03/09/20 10:30 95 15 78/51 03/09/20 10:15 81 17 76/57 91 L 03/09/20 10:00 129 H 27 H 77/57 97 03/09/20 09:45 128 H 27 H 70/49 97 03/09/20 09:30 134 H 18 77/55 97 03/09/20 09:15 129 H 18 120/83 96 03/09/20 09:00 134 H 16 107/76 97 03/09/20 08:45 135 H 13 99/66 97 03/09/20 08:30 138 H 15 113/73 97 03/09/20 08:15 138 H 17 123/86 98 03/09/20 08:00 98.2 F 138 H 14 120/77 99 03/09/20 07:45 137 H 15 118/85 99 03/09/20 07:00 138 H 21 98/58 98 03/09/20 06:45 138 H 25 H 104/58 98 03/09/20 06:30 135 H 20 102/70 99 03/09/20 06:15 140 H 20 102/85 96 03/09/20 06:00 138 H 30 H 115/68 97 03/09/20 05:45 137 H 37 H 106/80 96 03/09/20 05:30 140 H 24 101/62 96 03/09/20 05:15 141 H 30 H 92/78 94 L 03/09/20 05:00 141 H 28 H 95/58 98 03/09/20 04:45 142 H 32 H 94/53 98 03/09/20 04:30 140 H 30 H 87/53 99 03/09/20 04:15 142 H 30 H 121/86 100 03/09/20 04:00 141 H 28 H 118/76 100 03/09/20 03:45 140 H 24 129/74 97 03/09/20 03:30 146 H 28 H 111/75 98 03/09/20 03:15 144 H 28 H 118/69 99 03/09/20 03:00 144 H 17 111/64 100 03/09/20 02:45 142 H 18 101/63 100 03/09/20 02:30 148 H 11 L 89/57 99 03/09/20 02:15 146 H 19 87/64 98 03/09/20 02:00 146 H 16 89/57 100 03/09/20 01:45 144 H 18 85/48 100 03/09/20 01:30 144 H 21 105/49 98 03/09/20 01:15 146 H 7 L 103/67 99 03/09/20 01:00 144 H 9 L 110/65 97 03/09/20 00:45 142 H 35 H 104/65 99 03/09/20 00:30 140 H 14 99/66 100 03/09/20 00:15 140 H 22 99 03/09/20 00:00 138 H 26 H 101/64 100 03/08/20 23:45 140 H 28 H 99 03/08/20 23:30 137 H 26 H 100 03/08/20 23:21 98 F 133 H 25 H 105/78 99 03/08/20 23:07 112 H 03/08/20 22:50 98.5 F 132 H 18 111/71 98 03/08/20 22:21 103 H 17 93/59 98 03/08/20 21:40 134 H 18 96/71 03/08/20 21:24 114 H 106/67 03/08/20 21:20 84 17 73/47 03/08/20 21:00 133 H 20 77/45 03/08/20 20:40 135 H 21 68/41 03/08/20 20:23 97 69/47 03/08/20 20:20 97 17 74/49 03/08/20 20:00 122 H 18 72/48 03/08/20 19:40 134 H 18 70/49 03/08/20 19:27 98.7 F 133 H 18 81/54 98 03/08/20 19:20 135 H 20 60/44 03/08/20 19:00 130 H 18 55/32 03/08/20 18:50 83/52 98 03/08/20 18:40 135 H 20 98/40 03/08/20 18:20 129 H 18 63/41 95 03/08/20 18:00 131 H 19 70/43 96 03/08/20 17:40 135 H 18 80/42 97 03/08/20 17:34 133 H 18 80/42 97 03/08/20 17:20 138 H 22 83/57 98 03/08/20 17:19 137 H 18 83/57 98 03/08/20 17:00 135 H 19 73/41 96 03/08/20 16:40 134 H 20 89/52 95 03/08/20 16:37 128 H 13 81 L 03/08/20 16:20 98.9 F 136 H 24 78/43 98 Intake and Output 03/08/20 03/09/20 03/09/20 22:59 06:59 14:59 Intake Total 4.602 415.261 145.3 Output Total 155 165 Balance 4.602 260.261 -19.7 Intake: IV 145.3 0.9 @ 50 50 Amiodarone 360 mg In 33.3 Dextrose 5% in Water 200 ml @ 1 MG/MIN 33.333 mls/ hr IV .Q6H [facility] [place] Rx#: [id number] Heparin Sod,Pork in 0.45% 12 NaCl 25,000 unit In 0.45 % NaCl 1 250ml.bag @ 1, 200 UNIT/HR 12 mls/hr IV .[id number] [facility] Rx#: [id number] cefTRIAXone 1 gm In 50 Sodium Chloride 0.9% 50 ml @ 100 mls/hr IVPB ONCE STA Rx#:[id number] Intake, IV Titration 4.602 15.261 Amount Norepinephrine 32 mg In 4.602 15.261 Sodium Chloride 0.9% 218 ml @ 0.05 MCG/KG/MIN 2.36 mls/hr IV .Q24H [facility] Rx#: [id number] Oral 400 Output: Urine 155 165 Other: Voiding Method Indwelling Catheter Weight 100.698 kg 104.7 kg Physical Exam: Revealed an 79-year-old white male in no distress. Very pleasant. On 2 L nasal cannula. Head: Atraumatic, normocephalic. HEENT:[Neck is supple.] [No neck masses.] [No thyromegaly.] [No JVD.] PERRLA, EOMI, no icterus. Chest: [Symmetrical chest expansion, minimal crackles at the bases no rhonchi and no wheezes. Cardiac Exam: Irregular irregular rhythm. [Normal S1 and S2, no S3 gallop, 2/6 systolic murmur thought the precordium. Abdomen: [Soft, nontender, no megaly, no rebound, no guarding, normal bowel sounds.] Extremities: [No clubbing, no edema, no cyanosis.] Good pulses bilaterally. Psychiatric: Normal mood affect and normal mental status examination. Neurological Exam: [No focal neurologic deficit.] Alert and oriented 3. Skin: No rashes. Results - Laboratory Findings CBC and BMP: 03/09/20 06:40 03/09/20 06:40 PT/INR, D-dimer PT 11.5 sec (9.0-12.0) 03/08/20 16:57 INR 1.1 (<1.2) 03/08/20 16:57 Abnormal lab findings: Abnormal Labs 03/08/20 03/08/20 03/08/20 16:56 16:57 16:57 RBC 3.22 L Hgb 9.5 L Hct 29.6 L RDW 17.3 H Plt Count 147 L Lymphocytes # 0.3 L Sodium 132 L Carbon Dioxide 14 L BUN 71 H Creatinine 2.98 H Glucose 392 H POC Glucose (mg/dL) Plasma Lactic Acid Rodriguez 5.4 H* Calcium Magnesium Troponin I Total Protein 6.1 L Albumin 3.2 L Urine Protein Urine Blood Ur Leukocyte Esterase Urine RBC Urine WBC Amorphous Sediment Urine Bacteria 03/08/20 03/08/20 03/08/20 16:57 19:09 19:50 RBC Hgb Hct RDW Plt Count Lymphocytes # Sodium Carbon Dioxide BUN Creatinine Glucose POC Glucose (mg/dL) Plasma Lactic Acid Rodriguez 2.6 H* Calcium Magnesium Troponin I 0.048 H* Total Protein Albumin Urine Protein 2+ H Urine Blood Moderate H Ur Leukocyte Esterase Large H Urine RBC 6 H Urine WBC 114 H Amorphous Sediment Rare H Urine Bacteria Few H 03/08/20 03/08/20 03/09/20 21:45 23:21 06:40 RBC 3.25 L Hgb 9.2 L Hct 29.5 L RDW 17.3 H Plt Count 134 L Lymphocytes # 0.3 L Sodium Carbon Dioxide BUN Creatinine Glucose POC Glucose (mg/dL) 319 H 304 H Plasma Lactic Acid Rodriguez Calcium Magnesium Troponin I Total Protein Albumin Urine Protein Urine Blood Ur Leukocyte Esterase Urine RBC Urine WBC Amorphous Sediment Urine Bacteria 03/09/20 03/09/20 03/09/20 06:40 07:10 12:14 RBC Hgb Hct RDW Plt Count Lymphocytes # Sodium 133 L Carbon Dioxide 17 L BUN 73 H Creatinine 3.25 H Glucose 285 H POC Glucose (mg/dL) 291 H 280 H Plasma Lactic Acid Rodriguez Calcium 8.2 L Magnesium 1.5 L Troponin I Total Protein Albumin Urine Protein Urine Blood Ur Leukocyte Esterase Urine RBC Urine WBC Amorphous Sediment Urine Bacteria - Diagnostic Findings Chest x-ray: image reviewed (Chest x-ray this morning showed cardiomegaly, and mild interstitial edema with small left-sided pleural effusion.) Assessment and Plan Assessment: Impression: Acute urinary tract infection Septic shock and gram-negative bacteremia secondary to UTI Acute on chronic systolic congestive heart failure and LV dysfunction Shortness of breath secondary to above. Elevated lactic acid secondary to sepsis Type 2 diabetes, no evidence of hyperglycemia or ketoacidosis. Chronic atrial fibrillation however her rate seems to be poorly controlled at present requiring amiodarone. Anemia of chronic disease. History of coronary artery disease History of bladder cancer. And chemoradiation. History of bipolar disorder. Ex smoker. Obesity with body mass index of 34.8. Recommendation: Continue antibiotics. Patient is presently on Rocephin. Continue and titrate norepinephrine to maintain adequate blood pressure with a mean of above 65. Continue on amiodarone, and control rate to below 100. Continue Lasix 40 mg IV push every 8 hours. Continue GI and DVT prophylaxis. Resume home meds, however hold blood pressure medications as long as patient is requiring norepinephrine. Adjust antibiotics according to the final culture results from the blood and urine. Continue to monitor in the ICU. Will follow. Time with Patient: Greater than 30
--- NOTE | 2020-03-09 16:22 | P.CRDCN ---
History of Present Illness History of present illness: This is Dr. Champagne dictating a consult on this patient The patient was interviewed and examined IMPRESSION / ASSESSMENT: Patient being treated for sepsis Known severe cardio myopathy status post ICD implantation A. fib with RVR on ELIQUIS 2.5 mg twice a day Chronic kidney disease PLAN: Recommend electrical cardioversion I will start him on heparin to since he does have cardiomyopathy and bradycardia wouldn't tomorrow Continue IV amiodarone loading Hopefully this will facilitate management of sepsis HPI patient presented to the emergency room with tiredness fatigue difficulty b reathing and does complain of some palpitations He is found to have A. fib with RVR No chest discomfort He was also found to be having low-grade fever and hypotensive and tachycardic up 130 beats a minute. He was in A. fib with RVR He was noted to have UTI without urine tract complaints He received 2 L of IV fluid bolus, antibiotics for presumptive UTI He has known severe LV dysfunction ejection fraction 20% status post ICD implant This morning is norepinephrine was discontinued Last night IV amiodarone was begun, ROS: No fever chills or rigors, no cough, phlegm or expectoration, no nausea, vomiting or diarrhea, no hematuria, dysuria, no musculoskeletal complaints, no strokes or seizures, no skin lesions. EXAMINATION: On examination he was tachycardic 130 140 beats a minute respirations 16-18 Blood pressure in the 90s Breath sounds are reduced bilaterally Heart sounds are tachycardic Abdomen soft REVIEW OF LABS, ECG & MEDICAL DATA Gram-negative rods in the blood Past Medical History Past Medical History: Atrial Fibrillation, Coronary Artery Disease (CAD), Cancer, Heart Failure, Diabetes Mellitus, GERD/Reflux, Hyperlipidemia, Renal Disease Additional Past Medical History / Comment(s): See Dr Vargas's H&P, hx kidney and bladder cancer- tx with chemo and radiation 2012, "growth on kidney", history of CABG, cardiomyopathy, AICD implantation ULCER, KIDNEY STONES History of Any Multi-Drug Resistant Organisms: None Reported Past Surgical History: Bladder Surgery, Heart Catheterization, Orthopedic Surgery Additional Past Surgical History / Comment(s): Port-a-cath insertion/later removed. Bilateral cataract , ORIF R ankle with 2 screws,"scraped the bladder" 06-02-16 TOTAL RT KNEE,growth on kidney removed Past Anesthesia/Blood Transfusion Reactions: No Reported Reaction Additional Past Anesthesia/Blood Transfusion Reaction / Comment(s): Pt has never recieved blood. Past Psychological History: Bipolar, Depression Additional Psychological History / Comment(s): Pt is bipolar and states he does well with his medications. Smoking Status: Former smoker Past Alcohol Use History: None Reported Additional Past Alcohol Use History / Comment(s): Pt states he started smoking at age 15. He quit sometime in the or maybe even sooner. He was less than a pack a day smoker. Past Drug Use History: None Reported - Past Family History Father Family Medical History: Cancer Additional Family Medical History / Comment(s): prostate Mother Family Medical History: No Reported History Additional Family Medical History / Comment(s): Mother had bowel perforations. She at 88 yrs of age. Brother(s) Family Medical History: Cancer Sister(s) Family Medical History: Cancer Medications and Allergies Home Medications Medication Instructions Recorded Confirmed Type Venlafaxine HCl [Effexor] 75 mg PO BID tab 10/07/19 03/08/20 Rx Atorvastatin [Lipitor] 80 mg PO HS 11/19/19 03/08/20 History Cyanocobalamin (Vitamin B-12) 1,000 mcg PO DAILY 11/19/19 03/08/20 History [Vitamin B-12] Losartan [Cozaar] 25 mg PO HS tab 12/05/19 03/08/20 Rx Melatonin 3 mg PO HS tablet 12/05/19 03/08/20 Rx Metoprolol Tartrate [Lopressor] 25 mg PO BID tab 12/05/19 03/08/20 Rx Spironolactone [Aldactone] 25 mg PO DAILY tab 12/05/19 03/08/20 Rx lamoTRIgine [LaMICtal] 100 mg PO HS #3 tab 12/05/19 03/08/20 Rx Apixaban [Eliquis] 2.5 mg PO BID 03/08/20 03/08/20 History Carvedilol [Coreg] 12.5 mg PO BID-W/MEALS 03/08/20 03/08/20 History Cholecalciferol [Vitamin D3 (25 1,000 unit PO DAILY 03/08/20 03/08/20 History Mcg = 1000 Iu)] Ferrous Sulfate [Feosol] 325 mg PO DAILY 03/08/20 03/08/20 History Furosemide [Lasix] 40 mg PO DAILY@1500 03/08/20 03/08/20 History Furosemide [Lasix] 80 mg PO QAM 03/08/20 03/08/20 History Insulin Glargine [Lantus] 46 unit SQ HS 03/08/20 03/08/20 History Midodrine [ProAmatine] 10 mg PO TID@0700,1100,1600 03/08/20 03/08/20 History Pantoprazole Sodium [Protonix] 40 mg PO W/BRKFST 03/08/20 03/08/20 History metFORMIN HCL [Glucophage] 1,000 mg PO BID 03/08/20 03/08/20 History Allergies Allergy/AdvReac Type Severity Reaction Status Date / Time No Known Allergies Allergy Verified 03/08/20 18:00 Physical Exam Vitals: Vital Signs Temp Pulse Resp BP Pulse Ox 03/09/20 14:00 101 H 14 88/55 99 03/09/20 13:45 96 21 90/62 97 03/09/20 13:30 104 H 19 87/58 99 03/09/20 13:15 81 15 78/58 98 03/09/20 13:00 85 14 80/56 97 03/09/20 12:45 123 H 20 75/61 98 03/09/20 12:33 100 03/09/20 12:30 103 H 34 H 87/59 98 03/09/20 12:21 112 H 03/09/20 12:15 103 H 20 104/75 98 03/09/20 12:00 103 H 34 H 90/70 99 03/09/20 11:45 103 H 30 H 90/66 97 03/09/20 11:30 80 21 89/60 98 03/09/20 11:15 90 35 H 89/65 97 03/09/20 11:00 86 29 H 79/55 99 03/09/20 10:30 95 15 78/51 03/09/20 10:15 81 17 76/57 91 L 03/09/20 10:00 129 H 27 H 77/57 97 03/09/20 09:45 128 H 27 H 70/49 97 03/09/20 09:30 134 H 18 77/55 97 03/09/20 09:15 129 H 18 120/83 96 03/09/20 09:00 134 H 16 107/76 97 03/09/20 08:45 135 H 13 99/66 97 03/09/20 08:30 138 H 15 113/73 97 03/09/20 08:15 138 H 17 123/86 98 03/09/20 08:00 98.2 F 138 H 14 120/77 99 03/09/20 07:45 137 H 15 118/85 99 03/09/20 07:00 138 H 21 98/58 98 03/09/20 06:45 138 H 25 H 104/58 98 03/09/20 06:30 135 H 20 102/70 99 03/09/20 06:15 140 H 20 102/85 96 03/09/20 06:00 138 H 30 H 115/68 97 03/09/20 05:45 137 H 37 H 106/80 96 03/09/20 05:30 140 H 24 101/62 96 03/09/20 05:15 141 H 30 H 92/78 94 L 03/09/20 05:00 141 H 28 H 95/58 98 03/09/20 04:45 142 H 32 H 94/53 98 03/09/20 04:30 140 H 30 H 87/53 99 03/09/20 04:15 142 H 30 H 121/86 100 03/09/20 04:00 141 H 28 H 118/76 100 03/09/20 03:45 140 H 24 129/74 97 03/09/20 03:30 146 H 28 H 111/75 98 03/09/20 03:15 144 H 28 H 118/69 99 03/09/20 03:00 144 H 17 111/64 100 03/09/20 02:45 142 H 18 101/63 100 03/09/20 02:30 148 H 11 L 89/57 99 03/09/20 02:15 146 H 19 87/64 98 03/09/20 02:00 146 H 16 89/57 100 03/09/20 01:45 144 H 18 85/48 100 03/09/20 01:30 144 H 21 105/49 98 03/09/20 01:15 146 H 7 L 103/67 99 03/09/20 01:00 144 H 9 L 110/65 97 03/09/20 00:45 142 H 35 H 104/65 99 03/09/20 00:30 140 H 14 99/66 100 03/09/20 00:15 140 H 22 99 03/09/20 00:00 138 H 26 H 101/64 100 03/08/20 23:45 140 H 28 H 99 03/08/20 23:30 137 H 26 H 100 03/08/20 23:21 98 F 133 H 25 H 105/78 99 03/08/20 23:07 112 H 03/08/20 22:50 98.5 F 132 H 18 111/71 98 03/08/20 22:21 103 H 17 93/59 98 03/08/20 21:40 134 H 18 96/71 03/08/20 21:24 114 H 106/67 03/08/20 21:20 84 17 73/47 03/08/20 21:00 133 H 20 77/45 03/08/20 20:40 135 H 21 68/41 03/08/20 20:23 97 69/47 03/08/20 20:20 97 17 74/49 03/08/20 20:00 122 H 18 72/48 03/08/20 19:40 134 H 18 70/49 03/08/20 19:27 98.7 F 133 H 18 81/54 98 03/08/20 19:20 135 H 20 60/44 03/08/20 19:00 130 H 18 55/32 03/08/20 18:50 83/52 98 03/08/20 18:40 135 H 20 98/40 03/08/20 18:20 129 H 18 63/41 95 03/08/20 18:00 131 H 19 70/43 96 03/08/20 17:40 135 H 18 80/42 97 03/08/20 17:34 133 H 18 80/42 97 03/08/20 17:20 138 H 22 83/57 98 03/08/20 17:19 137 H 18 83/57 98 03/08/20 17:00 135 H 19 73/41 96 03/08/20 16:40 134 H 20 89/52 95 03/08/20 16:37 128 H 13 81 L Intake and Output 03/09/20 03/09/20 03/09/20 06:59 14:59 22:59 Intake Total 415.261 431.2 Output Total 155 295 Balance 260.261 136.2 Intake: IV 431.2 0.9 @ 50 200 Amiodarone 360 mg In 133.2 Dextrose 5% in Water 200 ml @ 1 MG/MIN 33.333 mls/ hr IV .Q6H [facility] Rx#: [id number] Heparin Sod,Pork in 0.45% 48 NaCl 25,000 unit In 0.45 % NaCl 1 250ml.bag @ 1, 200 UNIT/HR 12 mls/hr IV .[id number] [facility] Rx#: [id number] cefTRIAXone 1 gm In 50 Sodium Chloride 0.9% 50 ml @ 100 mls/hr IVPB ONCE STA Rx#:[id number] Intake, IV Titration 15.261 Amount Norepinephrine 32 mg In 15.261 Sodium Chloride 0.9% 218 ml @ 0.05 MCG/KG/MIN 2.36 mls/hr IV .Q24H [facility] Rx#: [id number] Oral 400 Output: Urine 155 295 Other: Voiding Method Indwelling Catheter Weight 104.7 kg 104.7 kg Results 03/09/20 06:40 03/09/20 06:40 Cardiac Enzymes 03/08/20 03/08/20 Range/Units 16:56 16:57 AST 21 (17-59) U/L Troponin I 0.048 H* (0.000-0.034) ng/mL Coagulation 03/08/20 Range/Units 16:57 PT 11.5 (9.0-12.0) sec APTT 28.3 (22.0-30.0) sec CBC 03/08/20 03/09/20 Range/Units 16:57 06:40 WBC 5.3 5.9 (3.8-10.6) k/uL RBC 3.22 L 3.25 L (4.30-5.90) m/uL Hgb 9.5 L 9.2 L (13.0-17.5) gm/dL Hct 29.6 L 29.5 L (39.0-53.0) % Plt Count 147 L 134 L (150-450) k/uL Comprehensive Metabolic Panel 03/08/20 03/09/20 Range/Units 16:56 06:40 Sodium 132 L 133 L (137-145) mmol/L Potassium 4.7 4.6 (3.5-5.1) mmol/L Chloride 100 103 (98-107) mmol/L Carbon Dioxide 14 L 17 L (22-30) mmol/L BUN 71 H 73 H (9-20) mg/dL Creatinine 2.98 H 3.25 H (0.66-1.25) mg/dL Glucose 392 H 285 H (74-99) mg/dL Calcium 8.9 8.2 L (8.4-10.2) mg/dL AST 21 (17-59) U/L ALT 12 (4-49) U/L Alkaline Phosphatase 90 (38-126) U/L Total Protein 6.1 L (6.3-8.2) g/dL Albumin 3.2 L (3.5-5.0) g/dL Current Medications Generic Name Dose Route Start Last Admin Trade Name Freq PRN Reason Stop Dose Admin Acetaminophen 650 mg 03/08/20 20:36 Tylenol Tab PO Q4HR PRN Fever and/or Mild Pain Hydrocodone Bitart/Acetaminophen 1 each 03/08/20 19:40 [place] 5-325 PO Q6HR PRN Pain Albuterol/Ipratropium 3 ml 03/08/20 22:00 03/09/20 12:19 Duoneb 0.5 Mg-3 Mg/3 Ml Soln INHALATION 3 ml RT-TID [facility] Administration Apixaban 2.5 mg 03/08/20 23:30 03/09/20 08:47 Eliquis PO 2.5 mg BID [facility] Administration Furosemide 40 mg 03/09/20 00:00 03/09/20 08:47 Lasix IV 40 mg Q8HR [facility] Administration Hydromorphone HCl 0.5 mg 03/08/20 19:40 Dilaudid IVP Q6HR PRN Severe Pain Norepinephrine Bitartrate 32 250 mls @ 2.36 mls/hr 03/08/20 20:45 03/09/20 02:10 mg/ Sodium Chloride IV 0.12 mcg/kg/min .Q24H [facility] 5.664 mls/hr Titration Protocol 0.05 MCG/KG/MIN Ceftriaxone Sodium 1 gm/ 50 mls @ 100 mls/hr 03/09/20 09:00 03/09/20 08:46 Sodium Chloride IVPB 100 mls/hr Q12HR [facility] Administration Heparin Sodium/Sodium Chloride 250 mls @ 12 mls/hr 03/09/20 10:00 03/09/20 10:22 25,000 unit/ Sodium Chloride IV 1,200 unit/hr .[id number] [facility] 12 mls/hr Administration 1,200 UNIT/HR Amiodarone HCl 360 mg/ 200 mls @ 33.333 mls/hr 03/09/20 10:10 03/09/20 10:23 Dextrose/Water IV 1 mg/min .Q6H [facility] 33.333 mls/hr Administration Protocol 1 MG/MIN Insulin Aspart 0 unit 03/08/20 21:00 03/09/20 12:24 Novolog SQ 4 unit ACHS [facility] Administration Protocol Insulin Detemir 46 unit 03/08/20 21:04 03/08/20 22:33 Levemir SQ 46 unit HS [facility] Administration Lamotrigine 100 mg 03/08/20 23:30 03/09/20 00:04 Lamictal PO 100 mg HS [facility] Administration Melatonin 3 mg 03/08/20 23:30 03/09/20 00:03 Melatonin PO 3 mg HS [facility] Administration Midodrine 10 mg 03/09/20 07:00 03/09/20 12:23 Proamatine PO 10 mg TID@0700,1100,1600 [facility] Administration Naloxone HCl 0.2 mg 03/08/20 20:36 Narcan IV Q2M PRN Opioid Reversal Pantoprazole Sodium 40 mg 03/08/20 19:45 03/09/20 08:47 Protonix IVP 40 mg DAILY [facility] Administration Spironolactone 25 mg 03/09/20 09:00 03/09/20 08:47 Aldactone PO 25 mg DAILY [facility] Administration Venlafaxine HCl 75 mg 03/08/20 23:30 03/09/20 10:23 Effexor PO 75 mg BID [facility] Administration Intake and Output 03/09/20 03/09/20 03/09/20 06:59 14:59 22:59 Intake Total 415.261 431.2 Output Total 155 295 Balance 260.261 136.2 Intake: IV 431.2 0.9 @ 50 200 Amiodarone 360 mg In 133.2 Dextrose 5% in Water 200 ml @ 1 MG/MIN 33.333 mls/ hr IV .Q6H [facility] Rx#: [id number] Heparin Sod,Pork in 0.45% 48 NaCl 25,000 unit In 0.45 % NaCl 1 250ml.bag @ 1, 200 UNIT/HR 12 mls/hr IV .[id number] [facility] Rx#: [id number] cefTRIAXone 1 gm In 50 Sodium Chloride 0.9% 50 ml @ 100 mls/hr IVPB ONCE STA Rx#:[id number] Intake, IV Titration 15.261 Amount Norepinephrine 32 mg In 15.261 Sodium Chloride 0.9% 218 ml @ 0.05 MCG/KG/MIN 2.36 mls/hr IV .Q24H [facility] Rx#: [id number] Oral 400 Output: Urine 155 295 Other: Voiding Method Indwelling Catheter Weight 104.7 kg 104.7 kg Patient Weight 03/10/20 06:59 Weight 104.7 kg 03/09/20 06:40 03/09/20 06:40
[2020-03-09 17:15] LABS: Glucose,Whole Blood 195 mg/dL (75-99)
[2020-03-09] MEDS: NOREPINEPHRINE 32 MG in SODIUM CHLORIDE 0.9% 218 ML IV SCH (20:49)
[2020-03-09 20:59] LABS: Glucose,Whole Blood 231 mg/dL (75-99)
[2020-03-09] MEDS: INSULIN DETEMIR (LEVEMIR) 100 UNIT/ML SYR SQ SCH (21:32)
[2020-03-10] MEDS: AMIODARONE 360 MG in DEXTROSE 5% IN WATER 200 ML IV SCH ×8 (00:29→20:47)
[2020-03-10] MEDS: FUROSEMIDE 10 MG/ML 4 ML VIAL IV SCH ×3 (00:29→16:21)
--- NOTE | 2020-03-10 01:51 | P.CONS ---
History of Present Illness - Reason for Consult Consult date: 03/09/20 Gram-negative bacteremia Requesting physician: Ricky Lopez - Chief Complaint Generalized weakness and not feeling well x days - History of Present Illness Patient is 79-year-old male presenting to the ER at [facility] with chief complaints of generalized not feeling well and her energy patient also complained of shortness of breath. Having minimal dry cough but no chest pain no nausea no vomiting no diarrhea, patient did have some urinary sy mptoms of difficulty urination and occasional burning or muscle weakness or flank pain patient did get a Bansal catheter in the ER for retention , patient of presentation hospital was afebrile he did have normal white count he did have elevated creatinine the positive UA patient chest x-ray did not show any consultation patient has the hospital with UTI subsequently came back positive with gram-negative bacilli that prompted this infectious disease consultation Review of Systems Positive point has been mentioned in the HPI rest of the systems are negative Past Medical History Past Medical History: Atrial Fibrillation, Coronary Artery Disease (CAD), Cancer, Heart Failure, Diabetes Mellitus, GERD/Reflux, Hyperlipidemia, Renal Disease Additional Past Medical History / Comment(s): See Dr Vargas's H&P, hx kidney and bladder cancer- tx with chemo and radiation 2012, "growth on kidney", history of CABG, cardiomyopathy, AICD implantation ULCER, KIDNEY STONES History of Any Multi-Drug Resistant Organisms: None Reported Past Surgical History: Bladder Surgery, Heart Catheterization, Orthopedic Surgery Additional Past Surgical History / Comment(s): Port-a-cath insertion/later removed. Bilateral cataract , ORIF R ankle with 2 screws,"scraped the bladder" 06-02-16 TOTAL RT KNEE,growth on kidney removed Past Anesthesia/Blood Transfusion Reactions: No Reported Reaction Additional Past Anesthesia/Blood Transfusion Reaction / Comm: Pt has never recieved blood. Past Psychological History: Bipolar, Depression Additional Psychological History / Comment(s): Pt is bipolar and states he does well with his medications. Smoking Status: Former smoker Past Alcohol Use History: None Reported Additional Past Alcohol Use History / Comment(s): Pt states he started smoking at age 15. He quit sometime in the s or maybe even sooner. He was less t egan a pack a day smoker. Past Drug Use History: None Reported - Past Family History Father Family Medical History: Cancer Additional Family Medical History / Comment(s): prostate Mother Family Medical History: No Reported History Additional Family Medical History / Comment(s): Mother had bowel perforations. She at 88 yrs of age. Brother(s) Family Medical History: Cancer Sister(s) Family Medical History: Cancer Medications and Allergies Home Medications Medication Instructions Recorded Confirmed Type Venlafaxine HCl [Effexor] 75 mg PO BID tab 10/07/19 03/08/20 Rx Atorvastatin [Lipitor] 80 mg PO HS 11/19/19 03/08/20 History Cyanocobalamin (Vitamin B-12) 1,000 mcg PO DAILY 11/19/19 03/08/20 History [Vitamin B-12] Losartan [Cozaar] 25 mg PO HS tab 12/05/19 03/08/20 Rx Melatonin 3 mg PO HS tablet 12/05/19 03/08/20 Rx Metoprolol Tartrate [Lopressor] 25 mg PO BID tab 12/05/19 03/08/20 Rx Spironolactone [Aldactone] 25 mg PO DAILY tab 12/05/19 03/08/20 Rx lamoTRIgine [LaMICtal] 100 mg PO HS #3 tab 12/05/19 03/08/20 Rx Apixaban [Eliquis] 2.5 mg PO BID 03/08/20 03/08/20 History Carvedilol [Coreg] 12.5 mg PO BID-W/MEALS 03/08/20 03/08/20 History Cholecalciferol [Vitamin D3 (25 1,000 unit PO DAILY 03/08/20 03/08/20 History Mcg = 1000 Iu)] Ferrous Sulfate [Feosol] 325 mg PO DAILY 03/08/20 03/08/20 History Furosemide [Lasix] 40 mg PO DAILY@1500 03/08/20 03/08/20 History Furosemide [Lasix] 80 mg PO QAM 03/08/20 03/08/20 History Insulin Glargine [Lantus] 46 unit SQ HS 03/08/20 03/08/20 History Midodrine [ProAmatine] 10 mg PO TID@0700,1100,1600 03/08/20 03/08/20 History Pantoprazole Sodium [Protonix] 40 mg PO W/BRKFST 03/08/20 03/08/20 History metFORMIN HCL [Glucophage] 1,000 mg PO BID 03/08/20 03/08/20 History Allergies Allergy/AdvReac Type Severity Reaction Status Date / Time No Known Allergies Allergy Verified 03/08/20 18:00 Physical Exam Vitals: Vital Signs Temp Pulse Resp BP Pulse Ox 03/09/20 14:00 101 H 14 88/55 99 03/09/20 13:45 96 21 90/62 97 03/09/20 13:30 104 H 19 87/58 99 03/09/20 13:15 81 15 78/58 98 03/09/20 13:00 85 14 80/56 97 03/09/20 12:45 123 H 20 75/61 98 03/09/20 12:33 100 03/09/20 12:30 103 H 34 H 87/59 98 03/09/20 12:21 112 H 03/09/20 12:15 103 H 20 104/75 98 03/09/20 12:00 103 H 34 H 90/70 99 03/09/20 11:45 103 H 30 H 90/66 97 03/09/20 11:30 80 21 89/60 98 03/09/20 11:15 90 35 H 89/65 97 03/09/20 11:00 86 29 H 79/55 99 03/09/20 10:30 95 15 78/51 03/09/20 10:15 81 17 76/57 91 L 03/09/20 10:00 129 H 27 H 77/57 97 03/09/20 09:45 128 H 27 H 70/49 97 03/09/20 09:30 134 H 18 77/55 97 03/09/20 09:15 129 H 18 120/83 96 03/09/20 09:00 134 H 16 107/76 97 03/09/20 08:45 135 H 13 99/66 97 03/09/20 08:30 138 H 15 113/73 97 03/09/20 08:15 138 H 17 123/86 98 03/09/20 08:00 98.2 F 138 H 14 120/77 99 03/09/20 07:45 137 H 15 118/85 99 03/09/20 07:00 138 H 21 98/58 98 03/09/20 06:45 138 H 25 H 104/58 98 07/25/20 06:30 135 H 20 102/70 99 03/09/20 06:15 140 H 20 102/85 96 03/09/20 06:00 138 H 30 H 115/68 97 03/09/20 05:45 137 H 37 H 106/80 96 03/09/20 05:30 140 H 24 101/62 96 03/09/20 05:15 141 H 30 H 92/78 94 L 03/09/20 05:00 141 H 28 H 95/58 98 03/09/20 04:45 142 H 32 H 94/53 98 03/09/20 04:30 140 H 30 H 87/53 99 03/09/20 04:15 142 H 30 H 121/86 100 03/09/20 04:00 141 H 28 H 118/76 100 03/09/20 03:45 140 H 24 129/74 97 03/09/20 03:30 146 H 28 H 111/75 98 03/09/20 03:15 144 H 28 H 118/69 99 03/09/20 03:00 144 H 17 111/64 100 03/09/20 02:45 142 H 18 101/63 100 03/09/20 02:30 148 H 11 L 89/57 99 03/09/20 02:15 146 H 19 87/64 98 03/09/20 02:00 146 H 16 89/57 100 03/09/20 01:45 144 H 18 85/48 100 03/09/20 01:30 144 H 21 105/49 98 03/09/20 01:15 146 H 7 L 103/67 99 03/09/20 01:00 144 H 9 L 110/65 97 03/09/20 00:45 142 H 35 H 104/65 99 03/09/20 00:30 140 H 14 99/66 100 03/09/20 00:15 140 H 22 99 03/09/20 00:00 138 H 26 H 101/64 100 03/08/20 23:45 140 H 28 H 99 03/08/20 23:30 137 H 26 H 100 03/08/20 23:21 98 F 133 H 25 H 105/78 99 03/08/20 23:07 112 H 03/08/20 22:50 98.5 F 132 H 18 111/71 98 03/08/20 22:21 103 H 17 93/59 98 03/08/20 21:40 134 H 18 96/71 03/08/20 21:24 114 H 106/67 03/08/20 21:20 84 17 73/47 03/08/20 21:00 133 H 20 77/45 03/08/20 20:40 135 H 21 68/41 03/08/20 20:23 97 69/47 03/08/20 20:20 97 17 74/49 03/08/20 20:00 122 H 18 72/48 03/08/20 19:40 134 H 18 70/49 03/08/20 19:27 98.7 F 133 H 18 81/54 98 03/08/20 19:20 135 H 20 60/44 03/08/20 19:00 130 H 18 55/32 03/08/20 18:50 83/52 98 03/08/20 18:40 135 H 20 98/40 03/08/20 18:20 129 H 18 63/41 95 03/08/20 18:00 131 H 19 70/43 96 03/08/20 17:40 135 H 18 80/42 97 03/08/20 17:34 133 H 18 80/42 97 03/08/20 17:20 138 H 22 83/57 98 03/08/20 17:19 137 H 18 83/57 98 03/08/20 17:00 135 H 19 73/41 96 03/08/20 16:40 134 H 20 89/52 95 03/08/20 16:37 128 H 13 81 L 03/08/20 16:20 98.9 F 136 H 24 78/43 98 Intake and Output 03/08/20 03/09/20 03/09/20 22:59 06:59 14:59 Intake Total 4.602 415.261 145.3 Output Total 155 165 Balance 4.602 260.261 -19.7 Intake: IV 145.3 0.9 @ 50 50 Amiodarone 360 mg In 33.3 Dextrose 5% in Water 200 ml @ 1 MG/MIN 33.333 mls/ hr IV .Q6H [facility] Rx#: [id number] Heparin Sod,Pork in 0.45% 12 NaCl 25,000 unit In 0.45 % NaCl 1 250ml.bag @ 1, 200 UNIT/HR 12 mls/hr IV .[id number] [facility] Rx#: [id number] cefTRIAXone 1 gm In 50 Sodium Chloride 0.9% 50 ml @ 100 mls/hr IVPB ONCE [facility] Rx#:[id number] Intake, IV Titration 4.602 15.261 Amount Norepinephrine 32 mg In 4.602 15.261 Sodium Chloride 0.9% 218 ml @ 0.05 MCG/KG/MIN 2.36 mls/hr IV .Q24H [facility] Rx#: [id number] Oral 400 Output: Urine 155 165 Other: Voiding Method Indwelling Catheter Weight 100.698 kg 104.7 kg GENERAL DESCRIPTION: An elderly male lying in bed, no distress. No tachypnea or accessory muscle of respiration use. HEENT: Shows Pallor , no scleral icterus. Oral mucous membrane is dry. No pharyngeal erythema or thrush NECK: Trachea central, no thyromegaly. LUNGS: Unlabored breathing. Clear to auscultation anteriorly. No wheeze or crackle. HEART: S1, S2, regular rate and rhythm. No loud murmur ABDOMEN: Soft, no tenderness , guarding or rigidity, no organomegaly EXTREMITIES: No edema of feet. SKIN: No rash, no masses palpable. NEUROLOGICAL: The patient is awake, alert, oriented x3, mood and affect normal. Results CBC & Chem 7: 03/09/20 06:40 03/09/20 06:40 Labs: Abnormal Lab Results - Last 24 Hours (Table) 03/08/20 03/08/20 03/08/20 Range/Units 16:56 16:57 16:57 RBC 3.22 L (4.30-5.90) m/uL Hgb 9.5 L (13.0-17.5) gm/dL Hct 29.6 L (39.0-53.0) % RDW 17.3 H (11.5-15.5) % Plt Count 147 L (150-450) k/uL Lymphocytes # 0.3 L (1.0-4.8) k/uL Sodium 132 L (137-145) mmol/L Carbon Dioxide 14 L (22-30) mmol/L BUN 71 H (9-20) mg/dL Creatinine 2.98 H (0.66-1.25) mg/dL Glucose 392 H (74-99) mg/dL POC Glucose (mg/dL) (75-99) mg/dL Plasma Lactic Acid Rodriguez 5.4 H* (0.7-2.0) mmol/L Calcium (8.4-10.2) mg/dL Magnesium (1.6-2.3) mg/dL Troponin I (0.000-0.034) ng/mL Total Protein 6.1 L (6.3-8.2) g/dL Albumin 3.2 L (3.5-5.0) g/dL Urine Protein (Negative) Urine Blood (Negative) Ur Leukocyte Esterase (Negative) Urine RBC (0-5) /hpf Urine WBC (0-5) /hpf Amorphous Sediment (None) /hpf Urine Bacteria (None) /hpf 03/08/20 03/08/20 03/08/20 Range/Units 16:57 19:09 19:50 RBC (4.30-5.90) m/uL Hgb (13.0-17.5) gm/dL Hct (39.0-53.0) % RDW (11.5-15.5) % Plt Count (150-450) k/uL Lymphocytes # (1.0-4.8) k/uL Sodium (137-145) mmol/L Carbon Dioxide (22-30) mmol/L BUN (9-20) mg/dL Creatinine (0.66-1.25) mg/dL Glucose (74-99) mg/dL POC Glucose (mg/dL) (75-99) mg/dL Plasma Lactic Acid Rodriguez 2.6 H* (0.7-2.0) mmol/L Calcium (8.4-10.2) mg/dL Magnesium (1.6-2.3) mg/dL Troponin I 0.048 H* (0.000-0.034) ng/mL Total Protein (6.3-8.2) g/dL Albumin (3.5-5.0) g/dL Urine Protein 2+ H (Negative) Urine Blood Moderate H (Negative) Ur Leukocyte Esterase Large H (Negative) Urine RBC 6 H (0-5) /hpf Urine WBC 114 H (0-5) /hpf Amorphous Sediment Rare H (None) /hpf Urine Bacteria Few H (None) /hpf 03/08/20 03/08/20 03/09/20 Range/Units 21:45 23:21 06:40 RBC 3.25 L (4.30-5.90) m/uL Hgb 9.2 L (13.0-17.5) gm/dL Hct 29.5 L (39.0-53.0) % RDW 17.3 H (11.5-15.5) % Plt Count 134 L (150-450) k/uL Lymphocytes # 0.3 L (1.0-4.8) k/uL Sodium (137-145) mmol/L Carbon Dioxide (22-30) mmol/L BUN (9-20) mg/dL Creatinine (0.66-1.25) mg/dL Glucose (74-99) mg/dL POC Glucose (mg/dL) 319 H 304 H (75-99) mg/dL Plasma Lactic Acid Rodriguez (0.7-2.0) mmol/L Calcium (8.4-10.2) mg/dL Magnesium (1.6-2.3) mg/dL Troponin I (0.000-0.034) ng/mL Total Protein (6.3-8.2) g/dL Albumin (3.5-5.0) g/dL Urine Protein (Negative) Urine Blood (Negative) Ur Leukocyte Esterase (Negative) Urine RBC (0-5) /hpf Urine WBC (0-5) /hpf Amorphous Sediment (None) /hpf Urine Bacteria (None) /hpf 03/09/20 03/09/20 03/09/20 Range/Units 06:40 07:10 12:14 RBC (4.30-5.90) m/uL Hgb (13.0-17.5) gm/dL Hct (39.0-53.0) % RDW (11.5-15.5) % Plt Count (150-450) k/uL Lymphocytes # (1.0-4.8) k/uL Sodium 133 L (137-145) mmol/L Carbon Dioxide 17 L (22-30) mmol/L BUN 73 H (9-20) mg/dL Creatinine 3.25 H (0.66-1.25) mg/dL Glucose 285 H (74-99) mg/dL POC Glucose (mg/dL) 291 H 280 H (75-99) mg/dL Plasma Lactic Acid Rodriguez (0.7-2.0) mmol/L Calcium 8.2 L (8.4-10.2) mg/dL Magnesium 1.5 L (1.6-2.3) mg/dL Troponin I (0.000-0.034) ng/mL Total Protein (6.3-8.2) g/dL Albumin (3.5-5.0) g/dL Urine Protein (Negative) Urine Blood (Negative) Ur Leukocyte Esterase (Negative) Urine RBC (0-5) /hpf Urine WBC (0-5) /hpf Amorphous Sediment (None) /hpf Urine Bacteria (None) /hpf Microbiology - Last 24 Hours (Table) 03/08/20 18:10 Blood Culture Gram Stain - Preliminary Blood Blood Culture - Preliminary Escherichia coli 03/08/20 18:10 Blood Culture - Final Blood 03/08/20 19:09 Urine Culture - Preliminary Urine,Voided Assessment and Plan Assessment: 1- patient presented to hospital with generalized weakness source is multifac torial and likely a component of symptomatic urinary tract infection likely from the abdominal pelvis which is E. coli 2- gram-negative bacteremia source likely urinary tract infection 3- renal insufficiency and high risk of nephrotoxicity (1) Gram-negative bacteremia Current Visit: Yes Status: Acute Code(s): R78.81 - BACTEREMIA SNOMED Code(s): 066820544863 (2) UTI (urinary tract infection) Current Visit: Yes Status: Acute Code(s): N39.0 - URINARY TRACT INFECTION, SITE NOT SPECIFIED SNOMED Code(s): 33698081 Plan: 1- we will increase Rocephin to 2 g daily 2- check an ultrasound of the kidney and bladder area 3- gentle IV fluid We will follow on clinical condition and cultures to further adjust medication if needed Thank you for this consultation will follow this patient with you Time with Patient: Greater than 30
[2020-03-10 05:36] LABS: Calcium 8.2 mg/dL (8.4-10.2); Magnesium 1.5 mg/dL (1.6-2.3)
[2020-03-10 05:44] LABS: Potassium 4.3 mmol/L (3.5-5.1)
[2020-03-10 05:48] LABS: Anisocytosis Slight; Hypochromasia Slight; MCH 29.2 pg (25.0-35.0); MCHC 32.3 g/dL (31.0-37.0); MCV 90.3 fL (80.0-100.0); Platelet Count 143 k/uL (150-450); RBC 3.44 m/uL (4.30-5.90); RDW 17.5 % (11.5-15.5); WBC 8.3 k/uL (3.8-10.6)
[2020-03-10 06:35] LABS: Band Neutrophils % 3 %; Eosinophils # (M) 0.33 k/uL (0-0.7); Lymphocytes # (M) 0.91 k/uL (1.0-4.8); Monocytes # (M) 0.75 k/uL (0-1.0); Neutrophils % (M) 73 %; Nucleated Red Blood Cells 0 /100 WBC (0-0); Total Cells Counted 100
[2020-03-10 06:37] LABS: Poikilocytosis (M) Present
[2020-03-10] MEDS: MIDODRINE 5 MG TAB PO SCH ×3 (06:47→16:22)
[2020-03-10] MEDS: HEPARIN SOD,PORK IN 0.45% NACL 25,000 UNIT in 0.45% NACL 1 250ML.BAG IV SCH (06:48)
--- NOTE | 2020-03-10 07:07 | XR ---
EXAMINATION TYPE: XR chest 1V portable DATE OF EXAM: 03/10/2020 HISTORY: CHF. REFERENCE: Previous study dated 03/09/2020. FINDINGS: There has been a midline sternotomy. There is a unipolar pacemaker place on the left. The heart is enlarged. There is mild vascular congestion and interstitial change. This may have worse susan slightly. There is apparent elevation of the left hemidiaphragm. No definite pleural fluid is see n. IMPRESSION: CONTINUING CHANGES OF CONGESTIVE HEART FAILURE MAY HAVE WORSENED SLIGHTLY FROM PREVIOUS.
[2020-03-10] MEDS: IPRATROPIUM-ALBUTEROL 3 ML NEB INHALATION SCH ×3 (08:06→21:23)
--- NOTE | 2020-03-10 08:36 | P.PN ---
Subjective Progress Note Date: 03/09/20 79-year-old white male with history of multiple medical problems including chronic atrial fibrillation, coronary artery disease, type 2 diabetes, dyslipidemia, patient is primarily a patient of Dr. Cavanaugh. Patient came into the ER yesterday complaining of few days' history of shortness of breath, low-grade fever, and upon evaluation in the ER he was noted to be relatively hypotensive, tachycardic with a rate of 130, he was in atrial fibrillation with RVR. Blood sugar was 392, and he was noted to have evidence of urinary tract infection. Although the patient has no urinary complaints. Chest x-ray showed evidence of interstitial edema. Considering the patient was hypotensive, he did receive 2 L of fluids boluses, he was given antibiotics for presumptive urinary tract infection and sepsis. Patient was admitted to the ICU Presently on amiodarone for his atrial fibrillation with RVR, patient remains hypotensive and is on norepinephrine at 0.06 mcg/kg/m, IV fluids at 50 MLS per hour, and he is also on Rocephin. Patient is improving, feeling much better since he was admitted. Blood cultures is positive for gram-negative rods. Objective - Vital Signs Vital signs: Vital Signs Temp 98 F 03/08/20 23:21 Pulse 138 H 03/09/20 07:00 Resp 21 03/09/20 07:00 BP 98/58 03/09/20 07:00 Pulse Ox 98 03/09/20 07:00 Intake & Output 03/08/20 03/09/20 03/09/20 18:59 06:59 18:59 Intake Total 419.863 Output Total 155 35 Balance 264.863 -35 Weight 100.698 kg 104.7 kg Intake: Intake, IV Titration 19.863 Amount Norepinephrine 32 mg In 19.863 Sodium Chloride 0.9% 218 ml @ 0.05 MCG/KG/MIN 2.36 mls/hr IV .Q24H [facility] Rx#: [id number] Oral 400 Output: Urine 155 35 Other: Voiding Method Indwelling Catheter - Exam Physical Exam: Revealed an 79-year-old white male in no distress. Very pleasant. On 2 L nasal cannula. Head: Atraumatic, normocephalic. HEENT:[Neck is supple.] [No neck masses.] [No thyromegaly.] [No JVD.] PERRLA, EOMI, no icterus. Chest: [Symmetrical chest expansion, minimal crackles at the bases no rhonchi and no wheezes. Cardiac Exam: Irregular irregular rhythm. [Normal S1 and S2, no S3 gallop, 2/6 systolic murmur thought the precordium. Abdomen: [Soft, nontender, no megaly, no rebound, no guarding, normal bowel sounds.] Extremities: [No clubbing, no edema, no cyanosis.] Good pulses bilaterally. Psychiatric: Normal mood affect and normal mental status examination. Neurological Exam: [No focal neurologic deficit.] Alert and oriented 3. Skin: No rashes. - Labs CBC & Chem 7: 03/10/20 04:50 03/10/20 04:50 Labs: Abnormal Lab Results - Last 24 Hours (Table) 03/08/20 03/08/20 03/08/20 Range/Units 16:56 16:57 16:57 RBC 3.22 L (4.30-5.90) m/uL Hgb 9.5 L (13.0-17.5) gm/dL Hct 29.6 L (39.0-53.0) % RDW 17.3 H (11.5-15.5) % Plt Count 147 L (150-450) k/uL Lymphocytes # 0.3 L (1.0-4.8) k/uL Sodium 132 L (137-145) mmol/L Carbon Dioxide 14 L (22-30) mmol/L BUN 71 H (9-20) mg/dL Creatinine 2.98 H (0.66-1.25) mg/dL Glucose 392 H (74-99) mg/dL POC Glucose (mg/dL) (75-99) mg/dL Plasma Lactic Acid Rodriguez 5.4 H* (0.7-2.0) mmol/L Calcium (8.4-10.2) mg/dL Magnesium (1.6-2.3) mg/dL Troponin I (0.000-0.034) ng/mL Total Protein 6.1 L (6.3-8.2) g/dL Albumin 3.2 L (3.5-5.0) g/dL Urine Protein (Negative) Urine Blood (Negative) Ur Leukocyte Esterase (Negative) Urine RBC (0-5) /hpf Urine WBC (0-5) /hpf Amorphous Sediment (None) /hpf Urine Bacteria (None) /hpf 03/08/20 03/08/20 03/08/20 Range/Units 16:57 19:09 19:50 RBC (4.30-5.90) m/uL Hgb (13.0-17.5) gm/dL Hct (39.0-53.0) % RDW (11.5-15.5) % Plt Count (150-450) k/uL Lymphocytes # (1.0-4.8) k/uL Sodium (137-145) mmol/L Carbon Dioxide (22-30) mmol/L BUN (9-20) mg/dL Creatinine (0.66-1.25) mg/dL Glucose (74-99) mg/dL POC Glucose (mg/dL) (75-99) mg/dL Plasma Lactic Acid Rodriguez 2.6 H* (0.7-2.0) mmol/L Calcium (8.4-10.2) mg/dL Magnesium (1.6-2.3) mg/dL Troponin I 0.048 H* (0.000-0.034) ng/mL Total Protein (6.3-8.2) g/dL Albumin (3.5-5.0) g/dL Urine Protein 2+ H (Negative) Urine Blood Moderate H (Negative) Ur Leukocyte Esterase Large H (Negative) Urine RBC 6 H (0-5) /hpf Urine WBC 114 H (0-5) /hpf Amorphous Sediment Rare H (None) /hpf Urine Bacteria Few H (None) /hpf 03/08/20 03/08/20 03/09/20 Range/Units 21:45 23:21 06:40 RBC 3.25 L (4.30-5.90) m/uL Hgb 9.2 L (13.0-17.5) gm/dL Hct 29.5 L (39.0-53.0) % RDW 17.3 H (11.5-15.5) % Plt Count 134 L (150-450) k/uL Lymphocytes # 0.3 L (1.0-4.8) k/uL Sodium (137-145) mmol/L Carbon Dioxide (22-30) mmol/L BUN (9-20) mg/dL Creatinine (0.66-1.25) mg/dL Glucose (74-99) mg/dL POC Glucose (mg/dL) 319 H 304 H (75-99) mg/dL Plasma Lactic Acid Rodriguez (0.7-2.0) mmol/L Calcium (8.4-10.2) mg/dL Magnesium (1.6-2.3) mg/dL Troponin I (0.000-0.034) ng/mL Total Protein (6.3-8.2) g/dL Albumin (3.5-5.0) g/dL Urine Protein (Negative) Urine Blood (Negative) Ur Leukocyte Esterase (Negative) Urine RBC (0-5) /hpf Urine WBC (0-5) /hpf Amorphous Sediment (None) /hpf Urine Bacteria (None) /hpf 03/09/20 03/09/20 Range/Units 06:40 07:10 RBC (4.30-5.90) m/uL Hgb (13.0-17.5) gm/dL Hct (39.0-53.0) % RDW (11.5-15.5) % Plt Count (150-450) k/uL Lymphocytes # (1.0-4.8) k/uL Sodium 133 L (137-145) mmol/L Carbon Dioxide 17 L (22-30) mmol/L BUN 73 H (9-20) mg/dL Creatinine 3.25 H (0.66-1.25) mg/dL Glucose 285 H (74-99) mg/dL POC Glucose (mg/dL) 291 H (75-99) mg/dL Plasma Lactic Acid Rodriguez (0.7-2.0) mmol/L Calcium 8.2 L (8.4-10.2) mg/dL Magnesium 1.5 L (1.6-2.3) mg/dL Troponin I (0.000-0.034) ng/mL Total Protein (6.3-8.2) g/dL Albumin (3.5-5.0) g/dL Urine Protein (Negative) Urine Blood (Negative) Ur Leukocyte Esterase (Negative) Urine RBC (0-5) /hpf Urine WBC (0-5) /hpf Amorphous Sediment (None) /hpf Urine Bacteria (None) /hpf Microbiology - Last 24 Hours (Table) 03/08/20 18:10 Blood Culture Gram Stain - Preliminary Blood 03/08/20 18:10 Blood Culture - Final Blood 03/08/20 19:09 Urine Culture - Preliminary Urine,Voided Assessment and Plan Assessment: 1. Septic shock/gram-negative bacteremia - Patient is currently on IV Rocephin; ID on board and find antibiotic therapy will be tapered once patient blood culture and sensitivity report is available - Patient remains on Prevacid therapy in form of norepinephrine and will be titrated as able; continue with midodrine 10 mg by mouth 3 times a day 2. Acute UTI; continue with IV Rocephin; urine culture is pending 3. Acute on chronic systolic CHF; left ventricular dysfunction; patient is currently treated with Lasix 40 mg IV every 8 hours; Aldactone 25 mg daily; monitor strict LUIS CARLOS's, daily weights, renal function and electrolytes 4. Atrial fibrillation with RVR; chronic; patient is currently on IV amiodarone for rate control; patient remains on Eliquis 2.5 mg twice a day 5. Diabetes mellitus type 2; continue to monitor Accu-Cheks every before meals and at bedtime insulin sliding scale 6. History of coronary artery disease; stable 7. Anemia; chronic disease; at baseline 8. Obesity; counseling done on the reduction DVT prophylaxis; Eliquis CODE STATUS; full code
--- NOTE | 2020-03-10 08:52 | US ---
EXAMINATION TYPE: US kidneys/renal and bladder DATE OF EXAM: 03/10/2020 COMPARISON: Previous study dated 11/21/2019. CLINICAL HISTORY: Urinary tract infection elevated creatinine. UTI EXAM MEASUREMENTS: Right Kidney: 10.4 x 4.3 x 3.6 cm Left Kidney: 11.7 x 4.9 x 3.6 cm Right Kidney: Hypoechoic area upper pole 2.7 x 2.3 x 2.6 cm. Left Kidney: No hydronephrosis or masses seen Bladder: Not full Bilateral Jets seen: No Lesion in the upper pole of the right kidney does not meet the requirements of a simple cyst. IMPRESSION: THIS STUDY IS DISCORDANT WITH THE PREVIOUS STUDY WHICH DEMONSTRATED A QUESTIONABLE SOLID LESION IN THE LOWER POLE OF THE RIGHT KIDNEY. THIS SHOWS LESION IN THE UPPER POLE OF THE RIGHT KIDNEY . A CT SCAN DATED 10/27/2018 DEMONSTRATED A FATTY SUBCAPSULAR LESION INVOLVING THE MID TO LOWER POLE O F THE RIGHT KIDNEY. THIS HAS THE SAME [place] APPEARANCE THE RETROPERITONEAL FAT. THIS MAY REPR ESENT A CAPSULAR LIPOMA OR AN ANGIOMYOLIPOMA. IN LIGHT OF THE AMBIGUITY OF THESE TESTS AN MRI OF THE KIDNEYS WOULD BE SUGGESTED.
[2020-03-10] MEDS ORDERED: PROPOFOL 10 MG/ML 20 ML VIAL IV ONE (09:15)
[2020-03-10] MEDS: INSULIN ASPART (NovoLOG) 100 UNIT/ML VIAL SQ SCH ×4 (10:35→20:43)
[2020-03-10] MEDS: PANTOPRAZOLE 40 MG/10 ML VIAL IVP SCH (11:10)
[2020-03-10] MEDS: VENLAFAXINE HCL 75 MG TAB PO SCH ×2 (11:10→20:41)
[2020-03-10] MEDS: SPIRONOLACTONE 25 MG TAB PO SCH (11:10)
[2020-03-10] MEDS: APIXABAN 2.5 MG TABLET PO SCH ×2 (11:11→20:41)
[2020-03-10 11:46] LABS: Glucose,Whole Blood 127 mg/dL (75-99)
--- NOTE | 2020-03-10 13:49 | P.PN ---
Subjective Progress Note Date: 03/10/20 Principal diagnosis: Septic shock secondary to gram-negative urinary tract infection and gram- negative bacteremia This is an 79-year-old white male with history of multiple medical problems including chronic atrial fibrillation, coronary artery disease, type 2 diabetes, dyslipidemia, patient is primarily a patient of Dr. Cavanaugh. Patient came into the ER yesterday complaining of few days' history of shortness of breath, low- grade fever, and upon evaluation in the ER he was noted to be relatively hypotensive, tachycardic with a rate of 130, he was in atrial fibrillation with RVR. Blood sugar was 392, and he was noted to have evidence of urinary tract infection. Although the patient has no urinary complaints. Chest x-ray showed evidence of interstitial edema. Considering the patient was hypotensive, he did receive 2 L of fluids boluses, he was given antibiotics for presumptive urinary tract infection and sepsis. Patient was admitted to the ICU, and I was asked to see him on consultation. Patient is known to have severe LV dysfunction, ejection fraction is 20% or less. He is also known to have history of previous myocardial revascularization, CABG 5. Presently on amiodarone for his atrial fibrillation with RVR, he is also on norepinephrine at 0.06 mcg/kg/m, IV fluids at 50 MLS per hour, and he is also on Rocephin. Patient is improving, feeling much better since he was admitted. Initial report on his blood cultures is positive for gram-negative rods in the blood. Patient was reevaluated today on 03/10/20, remains in the ICU, remains on antibiotics, patient developed atrial fibrillation with RVR, and required cardioversion with 100 J by cardiology this morning. Patient is now on amiodarone at 1 g drip, norepinephrine at 0.08 mcg/kg/m, his mean arterial pressure is 60. Blood cultures are positive for E. coli, and assume his urine culture will be positive the same. Patient had ultrasound of the kidney and bladder, question solid lesion in the lower pole of the right kidney and the radiologist is recommending MRI of the kidney which will be done at a later date. Chest x-ray continues to show changes of mild congestive heart failure, patient remains on diuretics, and he is now on few liters nasal cannula with O2 saturation of 99%. Blood pressure is 99/58 at present. And his norepinephrine is being titrated with possibly be discontinued later today. Remains on Rocephin for his bacteremia and urinary tract infection. Objective - Vital Signs Vital signs: Vital Signs Temp 98 F 03/09/20 16:00 Pulse 95 03/10/20 10:30 Resp 25 H 03/10/20 10:30 BP 99/58 03/10/20 10:30 Pulse Ox 99 03/10/20 10:30 Intake & Output 03/09/20 03/10/20 03/10/20 18:59 06:59 18:59 Intake Total 1107.7 1567.193 290.554 Output Total 755 1192 320 Balance 352.7 375.193 -29.446 Weight 104.7 kg Intake: IV 907.7 765.3 150 0.9 @ 50 450 600 150 Amiodarone 360 mg In 299.7 33.3 Dextrose 5% in Water 200 ml @ 1 MG/MIN 33.333 mls/ hr IV .Q6H RADHA Rx#: [id number] Heparin Sod,Pork in 0.45% 108 132 NaCl 25,000 unit In 0.45 % NaCl 1 250ml.bag @ 1, 200 UNIT/HR 12 mls/hr IV .[id number] RADHA Rx#: [id number] cefTRIAXone 1 gm In 50 Sodium Chloride 0.9% 50 ml @ 100 mls/hr IVPB ONCE STA Rx#:[id number] Intake, IV Titration 200 771.893 140.554 Amount Amiodarone 360 mg In 200 400 140.554 Dextrose 5% in Water 200 ml @ 1 MG/MIN 33.333 mls/ hr IV .Q6H RADHA Rx#: [id number] Heparin Sod,Pork in 0.45% 245.2 NaCl 25,000 unit In 0.45 % NaCl 1 250ml.bag @ 1, 200 UNIT/HR 12 mls/hr IV .[id number] RADHA Rx#: [id number] Norepinephrine 32 mg In 126.693 Sodium Chloride 0.9% 218 ml @ 0.05 MCG/KG/MIN 2.36 mls/hr IV .Q24H RADHA Rx#: [id number] Other 30 Output: Urine 755 1192 320 Other: Voiding Method Indwelling Catheter Indwelling Catheter Indwelling Catheter - Exam Physical Exam: Revealed an 79-year-old white male in no distress. On 2 L nasal cannula. Head: Atraumatic, normocephalic. HEENT:[Neck is supple.] [No neck masses.] [No thyromegaly.] [No JVD.] PERRLA, EOMI, no icterus. Chest: [Symmetrical chest expansion, continues to have crackles at the bases bi laterally. No change compared to yesterday. Cardiac Exam: Irregular irregular rhythm. [Normal S1 and S2, no S3 gallop, 2/6 systolic murmur thought the precordium. Abdomen: [Soft, nontender, no megaly, no rebound, no guarding, normal bowel sounds.] Extremities: [No clubbing, no edema, no cyanosis.] Good pulses bilaterally. Psychiatric: Normal mood affect and normal mental status examination. Neurological Exam: [No focal neurologic deficit.] Alert and oriented 3. Skin: No rashes. - Labs CBC & Chem 7: 03/10/20 04:50 03/10/20 04:50 Labs: Abnormal Lab Results - Last 24 Hours (Table) 03/09/20 03/09/20 03/10/20 Range/Units 17:14 20:56 04:50 RBC 3.44 L (4.30-5.90) m/uL Hgb 10.0 L (13.0-17.5) gm/dL Hct 31.0 L (39.0-53.0) % RDW 17.5 H (11.5-15.5) % Plt Count 143 L (150-450) k/uL Lymphocytes # (Manual) 0.91 L (1.0-4.8) k/uL APTT (22.0-30.0) sec Sodium (137-145) mmol/L Carbon Dioxide (22-30) mmol/L BUN (9-20) mg/dL Creatinine (0.66-1.25) mg/dL Glucose (74-99) mg/dL POC Glucose (mg/dL) 195 H 231 H (75-99) mg/dL Calcium (8.4-10.2) mg/dL Magnesium (1.6-2.3) mg/dL 03/10/20 03/10/20 03/10/20 Range/Units 04:50 05:28 11:45 RBC (4.30-5.90) m/uL Hgb (13.0-17.5) gm/dL Hct (39.0-53.0) % RDW (11.5-15.5) % Plt Count (150-450) k/uL Lymphocytes # (Manual) (1.0-4.8) k/uL APTT 59.6 H (22.0-30.0) sec Sodium 131 L (137-145) mmol/L Carbon Dioxide 11 L (22-30) mmol/L BUN 77 H (9-20) mg/dL Creatinine 3.32 H (0.66-1.25) mg/dL Glucose 134 H (74-99) mg/dL POC Glucose (mg/dL) 127 H (75-99) mg/dL Calcium 8.2 L (8.4-10.2) mg/dL Magnesium 1.5 L (1.6-2.3) mg/dL Microbiology - Last 24 Hours (Table) 03/08/20 18:10 Blood Culture Gram Stain - Preliminary Blood Blood Culture - Preliminary Escherichia coli 03/08/20 19:09 Urine Culture - Preliminary Urine,Voided Gram Neg Bacilli Assessment and Plan Assessment: Impression: Acute urinary tract infection, most likely secondary to E. coli Septic shock and E. coli bacteremia secondary to UTI Acute on chronic systolic congestive heart failure and LV dysfunction Shortness of breath secondary to above. Elevated lactic acid secondary to sepsis Type 2 diabetes, no evidence of hyperglycemia or ketoacidosis. Chronic atrial fibrillation however her rate seems to be poorly controlled at present requiring amiodarone. Anemia of chronic disease. History of coronary artery disease History of bladder cancer. And chemoradiation. History of bipolar disorder. Ex smoker. Obesity with body mass index of 34.8. Status post cardioversion on 03/10 by cardiology for atrial fibrillation with RVR Recommendation: Continue antibiotics./Rocephin. maintain adequate blood pressure with a mean of above 65. Titrate norepinephrine as directed. Continue on amiodarone, and control rate to below 100. Continue Lasix 40 mg IV push every 8 hours. Continue GI and DVT prophylaxis. Continue to monitor in the ICU. Adjust antibiotics according to the final culture results from the blood and u rine. Continue to monitor in the ICU. Time with Patient: Less than 30
--- NOTE | 2020-03-10 14:06 | P.PCN ---
Preoperative Diagnosis: Procedure Electrical cardioversion for atrial tachycardia Indication for the procedure Symptomatic heart failure with atrial tachycardia, refractory to rate control educations as well as rhythm control medications Patient received IV heparin and IV amiodarone He has known cardiac myopathy He is also on ELIQUIS 2.5 mg twice daily His underlying chronic kidney disease Procedure 100 J biphasic shock in the AP configuration converted to sinus rhythm Patient tells procedure well without any acute complications Following that he was alert and oriented I spoke to his regarding the procedures Plan Continue IV amiodarone today Continue IV heparin today Tomorrow morning stop IV heparin line tomorrow morning stop IV amiodarone Switched to by mouth amiodarone ELIQUIS to continue as before Maximize heart failure medications current myopathy medications Try coming off Midodrin and norepinephrine
--- NOTE | 2020-03-10 16:33 | P.PN ---
Subjective Progress Note Date: 03/10/20 Principal diagnosis: Septic shock Gram-negative UTI/bacteremia 79-year-old white male with history of multiple medical problems including chronic atrial fibrillation, coronary artery disease, type 2 diabetes, dyslipidemia, patient is primarily a patient of Dr. Cavanaugh. Patient came into the ER yesterday complaining of few days' history of shortness of breath, low- grade fever, and upon evaluation in the ER he was noted to be relatively hypotensive, tachycardic with a rate of 130, he was in atrial fibrillation with RVR. Blood sugar was 392, and he was noted to have evidence of urinary tract infection. Although the patient has no urinary complaints. Chest x-ray showed evidence of interstitial edema. Considering the patient was hypotensive, he did receive 2 L of fluids boluses, he was given antibiotics for presumptive urinary tract infection and sepsis. Patient was admitted to the ICU Presently on amiodarone for his atrial fibrillation with RVR, patient remains hypotensive and is on norepinephrine at 0.06 mcg/kg/m, IV fluids at 50 MLS per hour, and he is also on Rocephin. Patient is improving, feeling much better since he was admitted. Blood cultures is positive for gram-negative rods. 03/10/20, Patient remains in the ICU, remains on antibiotics - patient developed atrial fibrillation with RVR, and required cardioversion with 100 J by cardiology this morning. Patient is now on amiodarone at 1 g drip, norepinephrine which is being weaned off Blood cultures are positive for E. coli, and assume his urine culture will be positive the same. Patient had ultrasound of the kidney and bladder, question solid lesion in the lower pole of the right kidney and the radiologist is recommending MRI of the kidney which will be done at a later date. Chest x-ray continues to show changes of mild congestive heart failure, patient remains on diuretics, Remains on Rocephin for his bacteremia and urinary tract infection. Objective - Vital Signs Vital signs: Vital Signs Temp 98 F 03/09/20 16:00 Pulse 128 H 03/10/20 08:20 Resp 20 03/10/20 06:30 BP 110/74 03/10/20 06:30 Pulse Ox 96 03/10/20 06:30 Intake & Output 03/09/20 03/10/20 03/10/20 18:59 06:59 18:59 Intake Total 1107.7 1517.193 Output Total 755 1092 Balance 352.7 425.193 Weight 104.7 kg Intake: IV 907.7 715.3 0.9 @ 50 450 550 Amiodarone 360 mg In 299.7 33.3 Dextrose 5% in Water 200 ml @ 1 MG/MIN 33.333 mls/ hr IV .Q6H RADHA Rx#: [id number] Heparin Sod,Pork in 0.45% 108 132 NaCl 25,000 unit In 0.45 % NaCl 1 250ml.bag @ 1, 200 UNIT/HR 12 mls/hr IV .[id number] RADHA Rx#: [id number] cefTRIAXone 1 gm In 50 Sodium Chloride 0.9% 50 ml @ 100 mls/hr IVPB ONCE STA Rx#:[id number] Intake, IV Titration 200 771.893 Amount Amiodarone 360 mg In 200 400 Dextrose 5% in Water 200 ml @ 1 MG/MIN 33.333 mls/ hr IV .Q6H RADHA Rx#: [id number] Heparin Sod,Pork in 0.45% 245.2 NaCl 25,000 unit In 0.45 % NaCl 1 250ml.bag @ 1, 200 UNIT/HR 12 mls/hr IV .[id number] RADHA Rx#: [id number] Norepinephrine 32 mg In 126.693 Sodium Chloride 0.9% 218 ml @ 0.05 MCG/KG/MIN 2.36 mls/hr IV .Q24H RADHA Rx#: [id number] Other 30 Output: Urine 755 1092 Other: Voiding Method Indwelling Catheter Indwelling Catheter - Exam Physical Exam: Revealed an 79-year-old white male in no distress. Very pleasant. On 2 L nasal cannula. Head: Atraumatic, normocephalic. HEENT:[Neck is supple.] [No neck masses.] [No thyromegaly.] [No JVD.] PERRLA, EOMI, no icterus. Chest: [Symmetrical chest expansion, minimal crackles at the bases no rhonchi and no wheezes. Cardiac Exam: Irregular irregular rhythm. [Normal S1 and S2, no S3 gallop, 2/6 systolic murmur thought the precordium. Abdomen: [Soft, nontender, no megaly, no rebound, no guarding, normal bowel sounds.] Extremities: [No clubbing, no edema, no cyanosis.] Good pulses bilaterally. Psychiatric: Normal mood affect and normal mental status examination. Neurological Exam: [No focal neurologic deficit.] Alert and oriented 3. Skin: No rashes. - Labs CBC & Chem 7: 03/10/20 04:50 03/10/20 04:50 Labs: Abnormal Lab Results - Last 24 Hours (Table) 03/09/20 03/09/20 03/09/20 Range/Units 12:14 17:14 20:56 RBC (4.30-5.90) m/uL Hgb (13.0-17.5) gm/dL Hct (39.0-53.0) % RDW (11.5-15.5) % Plt Count (150-450) k/uL Lymphocytes # (Manual) (1.0-4.8) k/uL APTT (22.0-30.0) sec Sodium (137-145) mmol/L Carbon Dioxide (22-30) mmol/L BUN (9-20) mg/dL Creatinine (0.66-1.25) mg/dL Glucose (74-99) mg/dL POC Glucose (mg/dL) 280 H 195 H 231 H (75-99) mg/dL Calcium (8.4-10.2) mg/dL Magnesium (1.6-2.3) mg/dL 03/10/20 03/10/20 03/10/20 Range/Units 04:50 04:50 05:28 RBC 3.44 L (4.30-5.90) m/uL Hgb 10.0 L (13.0-17.5) gm/dL Hct 31.0 L (39.0-53.0) % RDW 17.5 H (11.5-15.5) % Plt Count 143 L (150-450) k/uL Lymphocytes # (Manual) 0.91 L (1.0-4.8) k/uL APTT 59.6 H (22.0-30.0) sec Sodium 131 L (137-145) mmol/L Carbon Dioxide 11 L (22-30) mmol/L BUN 77 H (9-20) mg/dL Creatinine 3.32 H (0.66-1.25) mg/dL Glucose 134 H (74-99) mg/dL POC Glucose (mg/dL) (75-99) mg/dL Calcium 8.2 L (8.4-10.2) mg/dL Magnesium 1.5 L (1.6-2.3) mg/dL Microbiology - Last 24 Hours (Table) 03/08/20 18:10 Blood Culture Gram Stain - Preliminary Blood Blood Culture - Preliminary Escherichia coli 03/08/20 19:09 Urine Culture - Preliminary Urine,Voided Gram Neg Bacilli 03/08/20 18:10 Blood Culture - Final Blood Assessment and Plan Assessment: 1. Septic shock/gram-negative bacteremia - Patient is currently on IV Rocephin; ID on board and find antibiotic therapy will be tapered once patient blood culture and sensitivity report is available - Patient remains on Prevacid therapy in form of norepinephrine and will be titrated as able; continue with midodrine 10 mg by mouth 3 times a day 2. Acute UTI; continue with IV Rocephin; urine culture is pending 3. Acute on chronic systolic CHF; left ventricular dysfunction; patient is currently treated with Lasix 40 mg IV every 8 hours; Aldactone 25 mg daily; monitor strict LUIS CARLOS's, daily weights, renal function and electrolytes 4. Atrial fibrillation with RVR; chronic; patient is currently on IV amiodarone for rate control; patient remains on Eliquis 2.5 mg twice a day 5. Diabetes mellitus type 2; continue to monitor Accu-Cheks every before meals and at bedtime insulin sliding scale 6. History of coronary artery disease; stable 7. Anemia; chronic disease; at baseline 8. Obesity; counseling done on the reduction DVT prophylaxis; Eliquis CODE STATUS; full code Time with Patient: Greater than 30
[2020-03-10 16:57] LABS: Glucose,Whole Blood 169 mg/dL (75-99)
[2020-03-10] MEDS: MELATONIN 3 MG TABLET PO SCH (20:41)
[2020-03-10] MEDS: INSULIN DETEMIR (LEVEMIR) 100 UNIT/ML SYR SQ SCH (20:41)
[2020-03-10] MEDS: lamoTRIgine 100 MG TAB PO SCH (20:41)
[2020-03-10 20:44] LABS: Glucose,Whole Blood 147 mg/dL (75-99)
[2020-03-10] MEDS: NOREPINEPHRINE 32 MG in SODIUM CHLORIDE 0.9% 218 ML IV SCH (20:47)
--- NOTE | 2020-03-10 22:00 | PN ---
PROGRESS NOTE DATE OF SERVICE: 03/10/2020 REASON FOR FOLLOWUP: E coli bacteremia. INTERVAL HISTORY: Patient is currently afebrile. The patient is breathing comfortably. Denies having any chest pain. No shortness of breath or cough. No nausea. No vomiting. No abdominal pain. No diarrhea. PHYSICAL EXAMINATION: Blood pressure is 92/63 with a pulse of 85, temperature 98. He is 99% on 2 L nasal cannula. General description is an elderly male lying in bed in no distress. Respiratory system: Unlabored breathing. Clear to auscultation anteriorly. Heart S1, S2. Regular rate and rhythm. Abdomen soft, no tenderness. LABS: Hemoglobin is 10.3, white count 8.3, creatinine is 3.32, slightly worse than yesterday. Blood culture with E coli. Urine is showing a Gram-negative. Abdominal ultrasound with concern for lesion upper pole of the kidney. DIAGNOSTIC IMPRESSION AND PLAN: Patient with E coli bacteremia. Source is likely urinary. The patient is covered with Rocephin. Ultrasound was inconclusive and recommend a MRI. Will discuss with the admitting team and monitor clinical course closely. MMODL / IJN: [id number] /
[2020-03-11] MEDS: FUROSEMIDE 10 MG/ML 4 ML VIAL IV SCH ×3 (02:35→16:42)
[2020-03-11] MEDS: AMIODARONE 360 MG in DEXTROSE 5% IN WATER 200 ML IV SCH ×6 (04:35→11:59)
[2020-03-11 05:04] LABS: Anisocytosis Slight; HCT 30.6 % (39.0-53.0); HGB 9.9 gm/dL (13.0-17.5); Hypochromasia Slight; MCH 28.7 pg (25.0-35.0); MCHC 32.4 g/dL (31.0-37.0); MCV 88.6 fL (80.0-100.0); Mean Platelet Volume 8.9; Platelet Count 177 k/uL (150-450); RBC 3.46 m/uL (4.30-5.90); RDW 17.6 % (11.5-15.5); WBC 9.7 k/uL (3.8-10.6)
[2020-03-11 05:35] LABS: Calcium 8.6 mg/dL (8.4-10.2)
[2020-03-11 05:51] LABS: Band Neutrophils % 1 %; Eosinophils # (M) 0.39 k/uL (0-0.7); Lymphocytes # (M) 1.36 k/uL (1.0-4.8); Monocytes # (M) 1.75 k/uL (0-1.0); Neutrophils % (M) 63 %; Nucleated Red Blood Cells 0 /100 WBC (0-0); Total Cells Counted 100
[2020-03-11 05:52] LABS: Toxic Granulation Present
[2020-03-11] MEDS: HEPARIN SOD,PORK IN 0.45% NACL 25,000 UNIT in 0.45% NACL 1 250ML.BAG IV SCH (06:37)
[2020-03-11 06:55] LABS: Potassium 4.3 mmol/L (3.5-5.1)
--- NOTE | 2020-03-11 07:51 | XR ---
EXAMINATION TYPE: XR chest 1V portable DATE OF EXAM: 03/11/2020 COMPARISON: 03/10/2020 INDICATION: CHF TECHNIQUE: Single frontal view of the chest is obtained. FINDINGS: The heart size is moderately prominent. The pulmonary vasculature is normal. There is mild diffuse increased lung markings. Small left pleural effusion is present. IMPRESSION: 1. Small left pleural effusion. 2. Mild increased lung markings. Correlate for pulmonary edema and atypical pneumonia. 3. Findings are similar to comparison.
[2020-03-11] MEDS: IPRATROPIUM-ALBUTEROL 3 ML NEB INHALATION SCH ×3 (09:05→20:23)
[2020-03-11 09:16] LABS: Glucose,Whole Blood 48 mg/dL (75-99)
[2020-03-11 09:16] LABS: Glucose,Whole Blood 42 mg/dL (75-99)
[2020-03-11] MEDS: INSULIN ASPART (NovoLOG) 100 UNIT/ML VIAL SQ SCH ×4 (09:23→21:53)
[2020-03-11] MEDS: MIDODRINE 5 MG TAB PO SCH ×3 (09:26→16:42)
[2020-03-11] MEDS: APIXABAN 2.5 MG TABLET PO SCH ×2 (09:26→21:52)
[2020-03-11] MEDS: SPIRONOLACTONE 25 MG TAB PO SCH (09:26)
[2020-03-11] MEDS: VENLAFAXINE HCL 75 MG TAB PO SCH ×2 (09:27→21:53)
[2020-03-11] MEDS: PANTOPRAZOLE 40 MG/10 ML VIAL IVP SCH (09:27)
[2020-03-11 09:30] LABS: Glucose,Whole Blood 48 mg/dL (75-99)
[2020-03-11] MEDS ORDERED: DEXTROSE 50% SYRINGE 50 ML IVP ONE (09:30)
[2020-03-11 09:55] LABS: Glucose,Whole Blood 110 mg/dL (75-99)
--- NOTE | 2020-03-11 10:19 | PN ---
PROGRESS NOTE PULMONARY/CRITICAL CARE PROGRESS NOTE: CRITICAL CARE TIME: 32 minutes. This is an 79-year-old male who was admitted to the hospital on March 08. He came with sepsis, heart failure and atrial fibrillation with RVR. He also has a history of previous cardioversion for atrial fibrillation on March 10, obesity, bipolar disorder, bladder cancer, CAD, anemia of chronic disease, type 2 diabetes, lactic acidemia, among other things. Currently, the patient is on 2 L nasal cannula. He remains on amiodarone at 1 mg/minute. He is getting a saline IV KVO. He does have evidence of E coli bacteremia and E coli urinary tract infection. Currently on Rocephin as an antibiotic. He was seen by my partner, Dr. Rivers yesterday. Currently, he is resting relatively comfortable. He is a bit short of breath. Denies any pain. No nausea vomiting. No diarrhea. Current vital signs are reviewed. Temperature 98, heart rate 66, respiratory rate 22, blood pressure 96/57 mean only 70, 2 L saturation 98%. Appears in no acute distress. Maybe some mild tachypnea. HEENT: Examination is grossly unremarkable. NECK: Supple. Full range of motion. No adenopathy. Neck veins are flat. CARDIOVASCULAR: Examination reveals regular rhythm and rate. Heart rate about 66 beats per minute. S1, S2 normal. There is no murmur. Heart sounds are distant. LUNGS: Reveal a few scattered rhonchi. No wheezes or crackles. Breath sounds equal. ABDOMEN: Soft, bowel sounds are heard. No masses or tenderness. EXTREMITIES: Reveal some mild edema. SKIN: Without rash. NEUROLOGIC: Examination is brief but nonfocal. LABS: Reviewed. White count 9.7, hemoglobin 9.9, hematocrit 30.6, platelet count 177,000. Sodium 132, potassium 4.3, chloride is 101, CO2 is 17, anion gap is 14. BUN and creatinine were 80 and 3.47. Microbiology is positive for E coli in the urine from 03/08 and in the blood from 03/08. Chest x-ray shows a pacemaker in place. He has bilateral infiltrates and bilateral effusions, left greater than right. There may be some basilar atelectasis. Mild cephalization. CURRENT MEDICATIONS: Reviewed. He is on Tylenol, amiodarone, Eliquis, Rocephin, Lasix, Lapine, Dilaudid, insulin, DuoNeb Lamictal, melatonin, midodrine, Narcan, Protonix, Aldactone, Effexor. ASSESSMENT: 1. Acute urinary tract infection with septic shock and bacteremia secondary to Escherichia coli. 2. Escherichia coli urinary tract infection and bacteremia. 3. Acute on chronic systolic congestive heart failure and LV dysfunction. 4. Shortness of breath secondary to #3. 5. Lactic acidemia secondary to sepsis. 6. Type 2 diabetes mellitus. 7. Chronic atrial fibrillation, poorly controlled. 8. Anemia of chronic disease next history of CAD next history of bladder cancer status post chemoradiation. 9. History of bipolar disorder. 10.Previous history of tobacco use. 11.History of chronic kidney disease. 12.Status post cardioversion for atrial fibrillation on March 10. PLAN: The patient remains on IV Rocephin. Blood pressure is better controlled. He remains on amiodarone at 1 mg/minute. He has GI and DVT prophylaxis. Will continue to monitor. Overall prognosis is guarded. Will continue to follow. CRITICAL CARE TIME: 32 minutes. MMODL / IJN: [id number] /
[2020-03-11 11:56] LABS: Glucose,Whole Blood 88 mg/dL (75-99)
[2020-03-11 16:39] LABS: Glucose,Whole Blood 84 mg/dL (75-99)
--- NOTE | 2020-03-11 17:15 | PN ---
PROGRESS NOTE Tr is an 79-year-old gentleman that is in the ICU with hypotension and is on midodrine. He was in atrial tachycardia and underwent cardioversion yesterday. The patient is currently on Eliquis, p.o. amiodarone and midodrine along with Aldactone. He is on IV amiodarone which I am going to stop and switch him to p.o. amiodarone. PHYSICAL EXAM: Heart rate is 66 and blood pressure is 96/57, respiratory rate is 18. Chest exam reveals good air entry bilaterally. Heart exam reveals first and second heart sounds. No gallop. Abdomen is soft. Exam of the extremities did not reveal any edema. Peripheral pulses are felt. ASSESSMENT: 1. Paroxysmal atrial fibrillation status post cardioversion. 2. Congestive heart failure. PLAN: I will continue the Eliquis, switch the amiodarone to p.o. and stop the IV heparin if she is still on it. MMODL / IJN: [id number] /
--- NOTE | 2020-03-11 19:36 | PN ---
PROGRESS NOTE DATE OF SERVICE: 03/11/2020 REASON FOR FOLLOWUP: E coli bacteremia and urinary tract infection. INTERVAL HISTORY: The patient is currently afebrile. The patient is hemodynamically stable. The patient denies having any chest pain or shortness of breath or cough. No nausea. No vomiting. No abdominal pain or diarrhea. PHYSICAL EXAMINATION: Blood pressure 94/58 with a pulse of 71, temperature 97.6. He is 98% on 2 L nasal cannula. General description is an elderly male lying in bed in no distress. RESPIRATORY SYSTEM: Unlabored breathing. Clear to auscultation anteriorly. HEART: S1, S2. Regular rate and rhythm. ABDOMEN: Soft. No tenderness. EXTREMITIES: No edema of the feet. LABS: Hemoglobin is 9.9 with a white count of 9.7, BUN of 80, creatinine 3.47. Blood and urine have been finalized with and E coli that is a sensitive pathogen. DIAGNOSTIC IMPRESSION AND PLAN: Patient with Escherichia coli bacteremia secondary to urinary source. Patient is covered with Rocephin 2 grams daily; to continue and monitor his clinical course closely. MMODL / IJN: [id number] /
[2020-03-11 21:34] LABS: Glucose,Whole Blood 69 mg/dL (75-99)
[2020-03-11] MEDS: AMIODARONE 200 MG TAB PO SCH (21:52)
[2020-03-11] MEDS: MELATONIN 3 MG TABLET PO SCH (21:52)
[2020-03-11] MEDS: lamoTRIgine 100 MG TAB PO SCH (21:52)
[2020-03-11 22:07] LABS: Glucose,Whole Blood 65 mg/dL (75-99)
[2020-03-11 22:34] LABS: Glucose,Whole Blood 75 mg/dL (75-99)
[2020-03-11] MEDS: INSULIN DETEMIR (LEVEMIR) 100 UNIT/ML SYR SQ SCH (22:56)
[2020-03-12] MEDS: FUROSEMIDE 10 MG/ML 4 ML VIAL IV SCH ×3 (00:05→17:15)
[2020-03-12 02:04] LABS: Glucose,Whole Blood 137 mg/dL (75-99)
[2020-03-12 05:41] LABS: Anisocytosis Slight; Calcium 8.3 mg/dL (8.4-10.2); HCT 28.2 % (39.0-53.0); HGB 9.2 gm/dL (13.0-17.5); Hypochromasia Slight; MCH 28.5 pg (25.0-35.0); MCHC 32.4 g/dL (31.0-37.0); MCV 87.8 fL (80.0-100.0); Mean Platelet Volume 8.1; Platelet Count 190 k/uL (150-450); Potassium 4.5 mmol/L (3.5-5.1); RBC 3.22 m/uL (4.30-5.90); RDW 17.6 % (11.5-15.5); WBC 7.3 k/uL (3.8-10.6)
[2020-03-12 06:35] LABS: Eosinophils # (M) 0.29 k/uL (0-0.7); Lymphocytes # (M) 0.95 k/uL (1.0-4.8); Monocytes # (M) 0.73 k/uL (0-1.0); Neutrophils # (M) 5.33 k/uL (1.3-7.7); Neutrophils % (M) 73 %; Nucleated Red Blood Cells 0 /100 WBC (0-0); Total Cells Counted 100
[2020-03-12 06:37] LABS: Large Platelets Present; Poikilocytosis (M) Present
--- NOTE | 2020-03-12 07:04 | XR ---
EXAMINATION TYPE: XR chest 1V DATE OF EXAM: 03/12/2020 HISTORY: Shortness of breath. COMPARISON: 03/11/2020 TECHNIQUE: Single view of the chest is submitted. FINDINGS: Demonstrated are scattered senescent parenchymal change. Persistent scattered infiltrates throughout both lung gibson unchanged in the interval. Pulmonary melvin ous congestion. Elevation left hemidiaphragm. The heart is stable. Hilar and mediastinal structures are within normal limits. Degenerative changes are seen of the dorsal spine. IMPRESSION: 1. Persistent scattered infiltrates throughout both lung gibson unchanged in the interval. Pulmonary venous congestion. Elevation left hemidiaphragm.
[2020-03-12 07:07] LABS: Glucose,Whole Blood 139 mg/dL (75-99)
[2020-03-12] MEDS: IPRATROPIUM-ALBUTEROL 3 ML NEB INHALATION SCH ×3 (07:16→19:44)
[2020-03-12] MEDS: MIDODRINE 5 MG TAB PO SCH ×3 (07:17→17:16)
[2020-03-12] MEDS: INSULIN ASPART (NovoLOG) 100 UNIT/ML VIAL SQ SCH ×4 (07:17→21:27)
--- NOTE | 2020-03-12 07:50 | P.PN ---
Subjective Progress Note Date: 03/12/20 Principal diagnosis: Septic shock secondary to gram-negative urinary tract infection and gram- negative bacteremia, related to E. coli On 03/12/2020 patient seen in follow-up in the intensive care unit, he is awake and alert, in no acute distress, is currently on 2 L of oxygen with a pulse ox of 97%, no fever or chills, hemodynamically patient is stable, he is not on any pressors, he has 0.9 normal saline infusing at a rate of 10 ML per hour, no altered mental status, no difficulty breathing, no cough or congestion, lung sounds reveal some crackles and bilateral posterior bases, no rhonchi or wheezing. No complaints of chest pain. Patient has been cardioverted on 03/10/2020, he remains in sinus rhythm with a controlled rate. He remains on oral amiodarone and Eliquis, he is on Rocephin for E. coli bacteremia related to urinary tract infection. Lasix IV at 40 mg every 8 hours, and he is in -5.1 L over last 24 hours, no lower extremity edema. Today's labs have been reviewed showing white blood cell count of 7.3, hemoglobin of 9.2, sodium is 132, potassium is 4.5, chloride is 101, CO2 is 20, BUN is 80 and creatinine is 3.18. His chest x-ray shows persistent scattered infiltrates throughout both lungs, relatively stable, pulmonary venous congestion and elevation of the left hemidiaphragm. Objective - Vital Signs Vital signs: Vital Signs Temp 97.5 F L 03/12/20 04:00 Pulse 77 03/12/20 07:00 Resp 24 03/12/20 07:00 BP 98/69 03/12/20 07:00 Pulse Ox 97 03/12/20 07:00 Intake & Output 03/11/20 03/12/20 03/12/20 18:59 06:59 18:59 Intake Total 110 120 10 Output Total 1660 3755 275 Balance -2153 -3406 -865 Weight 106.3 kg Intake: IV 110 120 10 0.9 @ 50 110 10 0.9 @10 110 10 Output: Urine 1660 3755 275 Other: Voiding Method Indwelling Catheter Indwelling Catheter - Exam GENERAL EXAM: Alert, very pleasant, 79-year-old white male, on 2 L of oxygen with pulse ox of 97%, comfortable in no apparent distress. HEAD: Normocephalic/atraumatic. EYES: Normal reaction of pupils, equal size. Conjunctiva pink, sclera white. NOSE: Clear with pink turbinates. THROAT: No erythema or exudates. NECK: No masses, no JVD, no thyroid enlargement, no adenopathy. CHEST: No chest wall deformity. Symmetrical expansion. LUNGS: Equal air entry with basilar crackles at posterior bases CVS: Regular rate and rhythm, normal S1 and S2, no gallops, no murmurs, no rubs ABDOMEN: Soft, nontender. No hepatosplenomegaly, normal bowel sounds, no guarding or rigidity. EXTREMITIES: No clubbing, no edema, no cyanosis, 2+ pulses and upper and lower extremities. Chronic venous stasis changes seen on both lower extremities, no edema MUSCULOSKELETAL: Muscle strength and tone normal. SPINE: No scoliosis or deformity SKIN: No rashes CENTRAL NERVOUS SYSTEM: Alert and oriented -3. No focal deficits, tone is normal in all 4 extremities. PSYCHIATRIC: Alert and oriented -3. Appropriate affect. Intact judgment and insight. - Labs CBC & Chem 7: 03/12/20 04:30 03/12/20 04:30 Labs: Abnormal Lab Results - Last 24 Hours (Table) 03/11/20 03/11/20 03/11/20 Range/Units 09:12 09:13 09:29 RBC (4.30-5.90) m/uL Hgb (13.0-17.5) gm/dL Hct (39.0-53.0) % RDW (11.5-15.5) % Lymphocytes # (Manual) (1.0-4.8) k/uL Sodium (137-145) mmol/L Carbon Dioxide (22-30) mmol/L BUN (9-20) mg/dL Creatinine (0.66-1.25) mg/dL Glucose (74-99) mg/dL POC Glucose (mg/dL) 48 L 42 L 48 L (75-99) mg/dL Calcium (8.4-10.2) mg/dL 03/11/20 03/11/20 03/11/20 Range/Units 09:54 21:32 22:05 RBC (4.30-5.90) m/uL Hgb (13.0-17.5) gm/dL Hct (39.0-53.0) % RDW (11.5-15.5) % Lymphocytes # (Manual) (1.0-4.8) k/uL Sodium (137-145) mmol/L Carbon Dioxide (22-30) mmol/L BUN (9-20) mg/dL Creatinine (0.66-1.25) mg/dL Glucose (74-99) mg/dL POC Glucose (mg/dL) 110 H 69 L 65 L (75-99) mg/dL Calcium (8.4-10.2) mg/dL 03/12/20 03/12/20 03/12/20 Range/Units 02:03 04:30 04:30 RBC 3.22 L (4.30-5.90) m/uL Hgb 9.2 L (13.0-17.5) gm/dL Hct 28.2 L (39.0-53.0) % RDW 17.6 H (11.5-15.5) % Lymphocytes # (Manual) 0.95 L (1.0-4.8) k/uL Sodium 132 L (137-145) mmol/L Carbon Dioxide 20 L (22-30) mmol/L BUN 80 H (9-20) mg/dL Creatinine 3.18 H (0.66-1.25) mg/dL Glucose 150 H (74-99) mg/dL POC Glucose (mg/dL) 137 H (75-99) mg/dL Calcium 8.3 L (8.4-10.2) mg/dL 03/12/20 Range/Units 07:05 RBC (4.30-5.90) m/uL Hgb (13.0-17.5) gm/dL Hct (39.0-53.0) % RDW (11.5-15.5) % Lymphocytes # (Manual) (1.0-4.8) k/uL Sodium (137-145) mmol/L Carbon Dioxide (22-30) mmol/L BUN (9-20) mg/dL Creatinine (0.66-1.25) mg/dL Glucose (74-99) mg/dL POC Glucose (mg/dL) 139 H (75-99) mg/dL Calcium (8.4-10.2) mg/dL Assessment and Plan Plan: Acute urinary tract infection, related to E. coli Septic shock and E. coli bacteremia secondary to UTI Acute on chronic systolic congestive heart failure and LV dysfunction Shortness of breath secondary to above. Elevated lactic acid secondary to sepsis Type 2 diabetes, no evidence of hyperglycemia or ketoacidosis. Chronic atrial fibrillation however her rate seems to be poorly controlled at present requiring amiodarone. Anemia of chronic disease. History of coronary artery disease History of bladder cancer. And chemoradiation. History of bipolar disorder. Ex smoker. Obesity with body mass index of 34.8. Status post cardioversion on 03/10 by cardiology for atrial fibrillation with RVR, he remains in sinus rhythm on 03/12/2020 Hypoglycemia, patient is on Levemir, and sliding-scale insulin and his Levemir was held last night. Plan: Continue current medical treatment, continue same dose IV diuretics, today's chest x-ray shows persistence of bilateral infiltrates, and pulmonary vascular congestion, however oxygenation is stable and patient is maintaining stable sa turations on 2 L of oxygen, and his FiO2 can further be weaned down. Increase activity as tolerated, he remains in sinus mechanism with a controlled rate, he remains on oral amiodarone and Eliquis. No acute events overnight, afebrile, he is on Rocephin for E. coli bacteremia related to urinary tract infection, no acute events overnight, patient can be transferred out of ICU to selective care unit. Patient had episodes of hypoglycemia last night, will defer to the hospitalist service to adjust his insulins, his Levemir was held last night, patient is tolerating oral diet. I performed a history & physical examination of the patient and discussed their management with my nurse practitioner, Vicki Enamorado. I reviewed the nurse practitioner's note and agree with the documented findings and plan of care. Lung sounds are positive for diffuse wheezes throughout the lung gibson. The findings and the impression was discussed with the patient. I attest to the documentation by the nurse practitioner. Time with Patient: Less than 30
[2020-03-12] MEDS: SPIRONOLACTONE 25 MG TAB PO SCH (09:24)
[2020-03-12] MEDS: VENLAFAXINE HCL 75 MG TAB PO SCH ×2 (09:25→21:27)
[2020-03-12] MEDS: APIXABAN 2.5 MG TABLET PO SCH ×2 (09:25→21:27)
[2020-03-12] MEDS: PANTOPRAZOLE 40 MG/10 ML VIAL IVP SCH (09:25)
[2020-03-12] MEDS: AMIODARONE 200 MG TAB PO SCH ×2 (09:25→21:27)
[2020-03-12 12:06] LABS: Glucose,Whole Blood 241 mg/dL (75-99)
--- NOTE | 2020-03-12 15:18 | PN ---
PROGRESS NOTE DATE OF SERVICE: 03/12/2020 REASON FOR FOLLOWUP: E coli UTI and bacteremia. INTERVAL HISTORY: Patient is currently afebrile. The patient is breathing comfortably. Denies having any chest pain. No shortness of breath, no cough. No abdominal pain, no diarrhea. PHYSICAL EXAMINATION: Blood pressure 104/58 with a pulse of 77, temperature is 97.6, he is 97% on 2 L. General description is an elderly male, lying in bed in no distress. RESPIRATORY SYSTEM: Unlabored breathing, clear to auscultation anteriorly. HEART: S1, S2. Regular rate and rhythm. ABDOMEN: Soft, no tenderness. LABS: Hemoglobin 9.8, white count 7.3, BUN of 80, creatinine 3.18. DIAGNOSTIC IMPRESSION AND PLAN: Patient with an E coli bacteremia. Source is urinary. The patient is covered with Rocephin. Finish therapy with oral antibiotic on discharge. Continue supportive care. MMODL / IJN: [id number] /
--- NOTE | 2020-03-12 16:44 | PN ---
PROGRESS NOTE FOLLOW-UP NOTE: Tr is an 79-year-old gentleman who is admitted to ICU with hypotension, has history of atrial tachycardia/fibrillation, for which he underwent cardioversion. This morning he is doing much better. On exam, heart rate is 80 beats per minute. Blood pressure is 98/60, respiratory rate is 18. Chest exam reveals good air entry bilaterally. Heart exam reveals first and second heart sounds. No gallop. Examination of extremities reveals mild edema. Labs show that the creatinine is elevated at 3.1. Current medications include antibiotics, Eliquis 2.5 b.i.d., amiodarone 200 b.i.d., Lasix, Aldactone. ASSESSMENT: 1. Paroxysmal atrial fibrillation, status post cardioversion. 2. Congestive heart failure. PLAN: I will continue the Eliquis, amiodarone. I will switch Lasix to p.o. Stop the Aldactone due to renal insufficiency. MMODL / IJN: [id number] /
[2020-03-12 16:52] LABS: Glucose,Whole Blood 459 mg/dL (75-99)
[2020-03-12 18:29] VITALS: BMI 36.7
[2020-03-12 20:36] LABS: Glucose,Whole Blood 231 mg/dL (75-99)
[2020-03-12] MEDS: lamoTRIgine 100 MG TAB PO SCH (21:27)
[2020-03-12] MEDS: MELATONIN 3 MG TABLET PO SCH (21:27)
[2020-03-12] MEDS: INSULIN DETEMIR (LEVEMIR) 100 UNIT/ML SYR SQ SCH (21:32)
[2020-03-12] MEDS ORDERED: INSULIN DETEMIR (LEVEMIR) 100 UNIT/ML SYR SQ SCH (22:00)
--- NOTE | 2020-03-12 22:25 | P.PN ---
Progress Note - Text Progress Note Date: 03/12/20 Patient is a 79-year-old patient of Dr. Cavanaugh. history of chronic atrial fibrillation on anticoagulation with Eliquis, coronary artery disease status post bypass graft, cardiomyopathy status post AICD placement, history of nephrectomy and unilateral kidney, CK D stage III, hypertension, hyperlipidemia, GERD, diabetes type 2 and history of bipolar/depression .bleeding peptic ulcers. Patient came into the ER complaining of few days' history of shortness of breath, low-grade fever, and upon evaluation in the ER he was noted to be relatively hypotensive, tachycardic with a rate of 130, he was in atrial fibrillation with RVR. Blood sugar was 392, and he was noted to have evidence of urinary tract infection. Although the patient has no urinary complaints. Chest x-ray showed evidence of interstitial edema. Considering the patient was hypotensive, he did receive 2 L of fluids boluses, he was given antibiotics for presumptive urinary tract infection and sepsis. Patient was admitted to the ICU Admitted with-septic shock, gram-negative bacteremia, acute UTI, acute CHF exacerbation, atrial tachycardia with rapid ventricular rate. Patient underwent cardioversion on March 10.. Today-in the ICU . eating better To sit up in a chair. Telemetry shows sinus rhythm. On 2 L of nasal cannula. Review of systems: Was done for constitutional, cardiovascular, GI, pulmonary. relevant finding as above Active Medications Acetaminophen (Tylenol Tab) 650 mg PO Q4HR PRN PRN Reason: Fever and/or Mild Pain Last Admin: 03/11/20 06:42 Dose: 650 mg Documented by: Hydrocodone Bitart/Acetaminophen ([place] 5-325) 1 each PO Q6HR PRN PRN Reason: Pain Albuterol/Ipratropium (Duoneb 0.5 Mg-3 Mg/3 Ml Soln) 3 ml INHALATION RT-TID [facility] Last Admin: 03/12/20 19:44 Dose: Not Given Documented by: Amiodarone HCl (Cordarone) 200 mg PO BID [facility] Last Admin: 03/12/20 21:27 Dose: 200 mg Documented by: Apixaban (Eliquis) 2.5 mg PO BID [facility] Last Admin: 03/12/20 21:27 Dose: 2.5 mg Documented by: Furosemide (Lasix) 40 mg IV Q8HR [facility] Last Admin: 03/12/20 17:15 Dose: 40 mg Documented by: Hydromorphone HCl (Dilaudid) 0.5 mg IVP Q6HR PRN PRN Reason: Severe Pain Ceftriaxone Sodium 2 gm/ (Sodium Chloride) 50 mls @ 100 mls/hr IVPB Q24HR [facility] Last Admin: 03/12/20 09:24 Dose: 100 mls/hr Documented by: Insulin Aspart (Novolog) 0 unit SQ [facility]; Protocol Last Admin: 03/12/20 21:27 Dose: 3 unit Documented by: Insulin Detemir (Levemir) 28 unit SQ [facility] Lamotrigine (Lamictal) 100 mg PO [facility] Last Admin: 03/12/20 21:27 Dose: 100 mg Documented by: Melatonin (Melatonin) 3 mg PO [facility] Last Admin: 03/12/20 21:27 Dose: 3 mg Documented by: Midodrine (Proamatine) 10 mg PO TID@0700,1100,1600 [facility] Last Admin: 03/12/20 17:16 Dose: 10 mg Documented by: Naloxone HCl (Narcan) 0.2 mg IV Q2M PRN PRN Reason: Opioid Reversal Pantoprazole Sodium (Protonix) 40 mg IVP DAILY [facility] Last Admin: 03/12/20 09:25 Dose: 40 mg Documented by: Venlafaxine HCl (Effexor) 75 mg PO BID [facility] Last Admin: 03/12/20 21:27 Dose: 75 mg Documented by: On examination: VITAL SIGNS: 98.2, 84, 15, 140s over 53, 96% on 2 L GENERAL APPEARANCE: BMI 36.7, laying in bed, awake HEENT: Normal external appearance of nose and ear. Oral cavity normal EYES: Pupils equal. Conjunctiva pale. NECK: JVD unable to assess Mass not palpable. RESPIRATORY: Respiratory effort increased. Decreased breath sounds. CARDIOVASCULAR: Heart sounds irregular, minimal edema ABDOMEN: Soft. Liver and spleen not palpable. No tenderness. No mass palpable. Bansal catheter- PSYCHIATRY: AO 3, mood and affect normal INVESTIGATIONS, reviewed in the clinical context: white count 7.3 hemoglobin 9.2 platelets 190 progression 4.5 bun 8D creatine 3.18 Accu-Cheks 139, 241, 459 chest x-ray shows questionable venous congestion andpossible infiltrates Previous testing: Bun 20 creatinine 1.9 to on January 02 Assessment: -Acute on chronic congestive heart failure exacerbation from systolic dysfunction, EF less than 30% -Acute UTI with cystitis. Bacteremia from E. coli - duodenal ulcers -normocytic anemia chronic -Ischemic cardiomyopathy -atrial tachycardia with a rapid ventricular rate status post cardioversion -Acute kidney injurypossibly GTN secondary to cardiorenal syndrome, -chronic kidney disease stage III.at the baseline creatinine of 1.9 -History of nephrectomy due to renal cancer and bladder cancer history -Diabetes type 2. Insulin-dependent uncontrolled with hypo-and hyperglycemia. -Hyperlipidemia -Coronary artery disease with history of multiple stents placement -Bipolar disorder and depression -GERD -Obesity - Plan: patient admits on IV ceftriaxone.also on Cordarone and eliquis. We'll put the patient back on Levemir 28 units starting tonight. Oral intake encouraged.change Lasix to 80 mg twice a day by mouth.
[2020-03-13 04:11] LABS: Anisocytosis Slight; HCT 30.6 % (39.0-53.0); HGB 9.7 gm/dL (13.0-17.5); Hypochromasia Slight; MCHC 31.7 g/dL (31.0-37.0); MCV 88.3 fL (80.0-100.0); Mean Platelet Volume 8.1; Platelet Count 216 k/uL (150-450); RBC 3.47 m/uL (4.30-5.90); RDW 17.6 % (11.5-15.5)
[2020-03-13 04:20] LABS: Calcium 8.7 mg/dL (8.4-10.2); Potassium 4.1 mmol/L (3.5-5.1)
[2020-03-13 04:49] VITALS: RESP 18
[2020-03-13 07:05] LABS: Glucose,Whole Blood 95 mg/dL (75-99)
[2020-03-13] MEDS: IPRATROPIUM-ALBUTEROL 3 ML NEB INHALATION SCH ×2 (07:09→11:09)
[2020-03-13] MEDS: INSULIN ASPART (NovoLOG) 100 UNIT/ML VIAL SQ SCH ×2 (07:12→12:03)
[2020-03-13] MEDS: MIDODRINE 5 MG TAB PO SCH ×2 (07:23→12:03)
[2020-03-13] MEDS: VENLAFAXINE HCL 75 MG TAB PO SCH (08:34)
[2020-03-13] MEDS: APIXABAN 2.5 MG TABLET PO SCH (08:34)
[2020-03-13] MEDS: AMIODARONE 200 MG TAB PO SCH (08:34)
[2020-03-13] MEDS: PANTOPRAZOLE 40 MG/10 ML VIAL IVP SCH (08:35)
[2020-03-13] MEDS ORDERED: FUROSEMIDE 40 MG TAB PO SCH (09:00)
[2020-03-13 09:16] VITALS: BP 107/55; TEMP 98.2
--- NOTE | 2020-03-13 10:33 | P.PN ---
Subjective Progress Note Date: 03/13/20 Principal diagnosis: Septic shock secondary to gram-negative urinary tract infection and gram- negative bacteremia, related to E. coli On 03/12/2020 patient seen in follow-up in the intensive care unit, he is awake and alert, in no acute distress, is currently on 2 L of oxygen with a pulse ox of 97%, no fever or chills, hemodynamically patient is stable, he is not on any pressors, he has 0.9 normal saline infusing at a rate of 10 ML per hour, no altered mental status, no difficulty breathing, no cough or congestion, lung sounds reveal some crackles and bilateral posterior bases, no rhonchi or wheezing. No complaints of chest pain. Patient has been cardioverted on 03/10/2020, he remains in sinus rhythm with a controlled rate. He remains on oral amiodarone and Eliquis, he is on Rocephin for E. coli bacteremia related to urinary tract infection. Lasix IV at 40 mg every 8 hours, and he is in -5.1 L over last 24 hours, no lower extremity edema. Today's labs have been reviewed showing white blood cell count of 7.3, hemoglobin of 9.2, sodium is 132, potassium is 4.5, chloride is 101, CO2 is 20, BUN is 80 and creatinine is 3.18. His chest x-ray shows persistent scattered infiltrates throughout both lungs, relatively stable, pulmonary venous congestion and elevation of the left hemidiaphragm. On 03/13/2020 patient seen in follow-up in the intensive care unit, he is awake and alert, oriented 3, in no acute distress, he has been awaiting a bed on selective care unit for last 24 hours, he has remained stable, he denies any worsening dyspnea, breathing appears to be comfortable, he is in sinus mechanism with a rate of 74, he is currently on 2 L of oxygen, his pulse ox is 91-98%, lung sounds reveal some coarse inspiratory crackles at bilateral posterior bas es, he continues on Lasix which was transitioned to oral Lasix 40 mg twice daily, he is maintaining negative fluid balance, and he is in -3.6 L net fluid balance over last 24 hours, no lower extremity edema, he still has a Bansal catheter in place, which we will discontinue today, he is tolerating oral intake, no nausea vomiting or diarrhea, today's labs have been reviewed, showing no leukocytosis, hemoglobin is 9.7, his renal profile is continuing to improve BUN down to 72 and creatinine 2.65. No new chest x-rays today, patient continues on oral Cordarone, and Eliquis, patient is on IV Rocephin for E. coli bacteremia and urinary tract infection. Objective - Vital Signs Vital signs: Vital Signs Temp 98.2 F 03/13/20 08:00 Pulse 84 03/13/20 08:00 Resp 18 03/13/20 08:00 BP 107/55 03/13/20 08:00 Pulse Ox 91 L 03/13/20 08:00 Intake & Output 03/12/20 03/13/20 03/13/20 18:59 06:59 18:59 Intake Total 261 100 Output Total 2375 1600 Balance -2113 -1499 Weight 106.3 kg 101.1 kg Intake: IV 211 100 0.9 @10 211 100 Intake, IV Titration 50 Amount cefTRIAXone 2 gm In 50 Sodium Chloride 0.9% 50 ml @ 100 mls/hr IVPB Q24HR [facility] Rx#:[id number] Output: Urine 2375 1600 Other: Voiding Method Indwelling Catheter Indwelling Catheter Indwelling Catheter - Exam GENERAL EXAM: Alert, very pleasant, 79-year-old white male, on 2 L of oxygen with pulse ox of 98%, comfortable in no apparent distress. HEAD: Normocephalic/atraumatic. EYES: Normal reaction of pupils, equal size. Conjunctiva pink, sclera white. NOSE: Clear with pink turbinates. THROAT: No erythema or exudates. NECK: No masses, no JVD, no thyroid enlargement, no adenopathy. CHEST: No chest wall deformity. Symmetrical expansion. LUNGS: Equal air entry with inspiratory crackles at posterior bases CVS: Regular rate and rhythm, normal S1 and S2, no gallops, no murmurs, no rubs ABDOMEN: Soft, nontender. No hepatosplenomegaly, normal bowel sounds, no guarding or rigidity. EXTREMITIES: No clubbing, no edema, no cyanosis, 2+ pulses and upper and lower extremities. Chronic venous stasis changes seen on both lower extremities, no edema MUSCULOSKELETAL: Muscle strength and tone normal. SPINE: No scoliosis or deformity SKIN: No rashes CENTRAL NERVOUS SYSTEM: Alert and oriented -3. No focal deficits, tone is norm al in all 4 extremities. PSYCHIATRIC: Alert and oriented -3. Appropriate affect. Intact judgment and insight. - Labs CBC & Chem 7: 03/13/20 03:30 03/13/20 03:30 Labs: Abnormal Lab Results - Last 24 Hours (Table) 03/12/20 03/12/20 03/12/20 Range/Units 12:04 16:51 20:34 RBC (4.30-5.90) m/uL Hgb (13.0-17.5) gm/dL Hct (39.0-53.0) % RDW (11.5-15.5) % Sodium (137-145) mmol/L Carbon Dioxide (22-30) mmol/L BUN (9-20) mg/dL Creatinine (0.66-1.25) mg/dL Glucose (74-99) mg/dL POC Glucose (mg/dL) 241 H 459 H 231 H (75-99) mg/dL 03/13/20 03/13/20 Range/Units 03:30 03:30 RBC 3.47 L (4.30-5.90) m/uL Hgb 9.7 L (13.0-17.5) gm/dL Hct 30.6 L (39.0-53.0) % RDW 17.6 H (11.5-15.5) % Sodium 135 L (137-145) mmol/L Carbon Dioxide 21 L (22-30) mmol/L BUN 72 H (9-20) mg/dL Creatinine 2.65 H (0.66-1.25) mg/dL Glucose 133 H (74-99) mg/dL POC Glucose (mg/dL) (75-99) mg/dL Assessment and Plan Plan: Acute urinary tract infection, related to E. coli Septic shock and E. coli bacteremia secondary to UTI Acute on chronic systolic congestive heart failure and LV dysfunction Shortness of breath secondary to above. Elevated lactic acid secondary to sepsis Type 2 diabetes, no evidence of hyperglycemia or ketoacidosis. Chronic atrial fibrillation however her rate seems to be poorly controlled at present requiring amiodarone. Anemia of chronic disease. History of coronary artery disease History of bladder cancer. And chemoradiation. History of bipolar disorder. Ex smoker. Obesity with body mass index of 34.8. Status post cardioversion on 03/10 by cardiology for atrial fibrillation with RVR, he remains in sinus rhythm on 03/12/2020 Hypoglycemia, patient is on Levemir, and sliding-scale insulin and his Levemir was held last night. Plan: Patient is doing well, clinically stable, increase activity as tolerated, discontinue Bansal catheter, discontinue central venous catheter, ambulate the patient, wean FiO2, patient continues to diurese, breathing easier, vital signs have been stable, his been afebrile, from pulmonary perspective patient can be considered for discharge home today, will need home oxygen assessment. If he ends up staying another day patient can be downgraded to general medical floor with remote telemetry I performed a history & physical examination of the patient and discussed their management with my nurse practitioner, Vicki Enamorado. I reviewed the nurse practitioner's note and agree with the documented findings and plan of care. Lung sounds are positive for diffuse wheezes throughout the lung gibson. The fi ndings and the impression was discussed with the patient. I attest to the documentation by the nurse practitioner. Time with Patient: Less than 30
[2020-03-13 11:25] VITALS: PULSE 76
[2020-03-13 11:53] LABS: Glucose,Whole Blood 196 mg/dL (75-99)
[2020-03-13 15:43] LABS: Hemoglobin A1C 10.5 % (4.0-6.0)
--- NOTE | 2020-03-13 15:56 | PN ---
PROGRESS NOTE Tr is an 79-year-old gentleman who was admitted to ICU with hypotension, had atrial tachycardia, fibrillation for which he underwent cardioversion. CURRENT MEDICATIONS: Include Cordarone 200 b.i.d., Eliquis 2.5 b.i.d., Lasix 40 b.i.d., insulin, and midodrine. On exam, heart rate is 76 beats per minute. Blood pressure is 107/55, respiratory rate is 18, O2 saturation is 97% on room air. Chest exam reveals good air entry bilaterally, heart exam reveals first and second heart sounds. No gallop. No murmur. Abdomen is soft. Exam of extremities did not reveal any edema. Peripheral pulses are felt. LABS: Show a hemoglobin of 9.7, platelet count is 216, potassium is 4.1, creatinine is 2.6. ASSESSMENT: Acute exacerbation of chronic systolic heart failure, atrial tachycardia fibrillation status post cardioversion, CAD status post multivessel angioplasty. PLAN: Patient will continue current medications. Hopefully home tomorrow. MMANA LAURA / JIMN: [id number] /
--- NOTE | 2020-03-13 23:22 | P.DS ---
Providers Date of admission: 03/08/20 20:36 Expected date of discharge: 03/13/20 Attending physician: Jhoan Poe Consults: 03/08/20 19:38 Consult Physician Routine Consulting Provider: Aliza Vargas Consult Reason/Comments: chf Do you want consulting provider notified?: Yes Consult Physician Routine Consulting Provider: Kirk Rivers Consult Reason/Comments: sob Do you want consulting provider notified?: Yes 03/08/20 19:39 Consult Physician Routine Consulting Provider: Luan York Consult Reason/Comments: sepsis Do you want consulting provider notified?: Yes Primary care physician: [facility] Hospital Course: Patient is a 79-year-old patient of Dr. Cavanaugh. history of chronic atrial fibrillation on anticoagulation with Eliquis, coronary artery disease status post bypass graft, cardiomyopathy status post AICD placement, history of nephrectomy and unilateral kidney, CK D stage III, hypertension, hyperlipidemia, GERD, diabetes type 2 and history of bipolar/depression .bleeding peptic ulcers. Patient came into the ER complaining of few days' history of shortness of breath, low-grade fever, and upon evaluation in the ER he was noted to be rel atively hypotensive, tachycardic with a rate of 130, he was in atrial fibrillation with RVR. Blood sugar was 392, and he was noted to have evidence of urinary tract infection. Although the patient has no urinary complaints. Chest x-ray showed evidence of interstitial edema. Considering the patient was hypotensive, he did receive 2 L of fluids boluses, he was given antibiotics for presumptive urinary tract infection and sepsis. Patient was admitted to the ICU Admitted with-septic shock, gram-negative bacteremia, acute UTI, acute CHF exacerbation, atrial tachycardia with rapid ventricular rate. Patient underwent cardioversion on March 10.. Today-i doing much better. Eating food. Does not like hospital food. Breathing is better. Up in a chair. Medical to go home. Cleared by pulmonary. Patient being put on amiodarone, DuoNeb, Keflex. Discussion and discharge planning more than 35 minutes Consultation: [facility] Dr. Kingsley from pulmonary Dr. York from [place] On examination: VITAL SIGNS: 98.2, 84, 18, 107/55, 97% on room air GENERAL APPEARANCE: Sitting up in a chair, comfortable HEENT: Normal external appearance of nose and ear. Oral cavity normal EYES: Pupils equal. Conjunctiva pale. NECK: JVD unable to assess Mass not palpable. RESPIRATORY: Respiratory effort increased. Decreased breath sounds. CARDIOVASCULAR: Heart sounds irregular, minimal edema ABDOMEN: Soft. Liver and spleen not palpable. No tenderness. No mass palpable. Bansal catheter- PSYCHIATRY: AO 3, mood and affect normal INVESTIGATIONS, reviewed in the clinical context: White count 8 hemoglobin 9.7 potassium 4.1 bun 72 creatinine 2.65 Accu-Cheks 139, 241, 459 chest x-ray shows questionable venous congestion andpossible infiltrates Previous testing: Bun 20 creatinine 1.9 to on January 02 Assessment: -Acute on chronic congestive heart failure exacerbation from systolic dysfunction, EF less than 30%-improve -Acute UTI with cystitis. Bacteremia from E. coli - duodenal ulcers -normocytic anemia chronic -Ischemic cardiomyopathy -atrial tachycardia with a rapid ventricular rate status post cardioversion -Acute kidney injurypossibly GTN secondary to cardiorenal syndrome, -chronic kidney disease stage III.at the baseline creatinine of 1.9 -History of nephrectomy due to renal cancer and bladder cancer history -Diabetes type 2. Insulin-dependent uncontrolled with hypo-and hyperglycemia. -Hyperlipidemia -Coronary artery disease with history of multiple stents placement -Bipolar disorder and depression -GERD -Obesity - Disposition: Home with Patient Condition at Discharge: Undetermined Plan - Discharge Summary Discharge Rx Participant: Yes New Discharge Prescriptions: New Amiodarone [Cordarone] 200 mg PO DAILY #30 tab Ipratropium-Albuterol Nebulize [Duoneb 0.5 mg-3 mg/3 ml Soln] 3 ml INHALATION RT-TID #90 ml Cephalexin [Keflex] 250 mg PO Q8HR #21 capsule Continue Venlafaxine HCl [Effexor] 75 mg PO BID tab Atorvastatin [Lipitor] 80 mg PO HS Cyanocobalamin (Vitamin B-12) [Vitamin B-12] 1,000 mcg PO DAILY Melatonin 3 mg PO HS tablet lamoTRIgine [LaMICtal] 100 mg PO HS #3 tab Pantoprazole Sodium [Protonix] 40 mg PO W/BRKFST Midodrine [ProAmatine] 10 mg PO TID@0700,1100,1600 Ferrous Sulfate [Iron (65 MG Elemental)] 325 mg PO DAILY Cholecalciferol [Vitamin D3 (25 Mcg = 1000 Iu)] 1,000 unit PO DAILY Apixaban [Eliquis] 2.5 mg PO BID Changed Furosemide [Lasix] 40 mg PO BID #0 Insulin Glargine [Lantus] 30 unit SQ HS #0 Discontinued Spironolactone [Aldactone] 25 mg PO DAILY tab Losartan [Cozaar] 25 mg PO HS tab Metoprolol Tartrate [Lopressor] 25 mg PO BID tab metFORMIN HCL [Glucophage] 1,000 mg PO BID Furosemide [Lasix] 80 mg PO QAM Carvedilol [Coreg] 12.5 mg PO BID-W/MEALS Discharge Medication List Venlafaxine HCl [Effexor] 75 mg PO BID tab 10/07/19 [Rx] Atorvastatin [Lipitor] 80 mg PO HS 11/19/19 [History] Cyanocobalamin (Vitamin B-12) [Vitamin B-12] 1,000 mcg PO DAILY 11/19/19 [History] Melatonin 3 mg PO HS tablet 12/05/19 [Rx] lamoTRIgine [LaMICtal] 100 mg PO HS #3 tab 12/05/19 [Rx] Apixaban [Eliquis] 2.5 mg PO BID 03/08/20 [History] Cholecalciferol [Vitamin D3 (25 Mcg = 1000 Iu)] 1,000 unit PO DAILY 03/08/20 [History] Ferrous Sulfate [Iron (65 MG Elemental)] 325 mg PO DAILY 03/08/20 [History] Midodrine [ProAmatine] 10 mg PO TID@0700,1100,1600 03/08/20 [History] Pantoprazole Sodium [Protonix] 40 mg PO W/BRKFST 03/08/20 [History] Amiodarone [Cordarone] 200 mg PO DAILY #30 tab 03/13/20 [Rx] Cephalexin [Keflex] 250 mg PO Q8HR #21 capsule 03/13/20 [Rx] Furosemide [Lasix] 40 mg PO BID #0 03/13/20 [Rx] Insulin Glargine [Lantus] 30 unit SQ HS #0 03/13/20 [Rx] Ipratropium-Albuterol Nebulize [Duoneb 0.5 mg-3 mg/3 ml Soln] 3 ml INHALATION RT-TID #90 ml 03/13/20 [Rx] Follow up Appointment(s)/Referral(s): cardiology, [Other] - 10 Days Located Within [facility] [NON-STAFF] - 1-2 Days [facility] [NON-STAFF] - As Needed Rolly Cavanaugh MD [Primary Care Provider] - 1-2 days (Sat March 16, at 1130am) Laz Payan DO [STAFF PHYSICIAN] - 10 Days (April 03 at 1140am) Patient Instructions/Handouts: Heart Failure (DC), Sepsis (GEN), Diabetic Hyperglycemia (DC) Activity/Diet/Wound Care/Special Instructions: cbc/bmp - 5 days Discharge Disposition: HOME SELF-CARE
[2020-03-14] MEDS ORDERED: PANTOPRAZOLE 40 MG TABLET PO SCH (07:30)
== END 2020-03-13 13:48 | disposition home health service (06) | DRG 871 ==
LOC: EC 15:59 → 2SICU 20:36
PROVIDERS: ADMIT Hospitalist; ATTEND Hospitalist
PROC: 5A2204Z Restoration of Cardiac Rhythm, Single (ICD-10-PCS; principal; 2020-03-10 07:30)
DX: A41.51 Sepsis due to Escherichia coli [E. coli] (principal); I50.23 Acute on chronic systolic (congestive) heart failure; R65.21 Severe sepsis with septic shock; N17.0 Acute kidney failure with tubular necrosis; E87.1 Hypo-osmolality and hyponatremia; F31.30 Bipolar disorder, current episode depressed, mild or moderate severity, unspecified; I13.0 Hypertensive heart and chronic kidney disease with heart failure and stage 1 through stage 4 chronic kidney disease, or unspecified chronic kidney disease; I47.1 Supraventricular tachycardia; N30.00 Acute cystitis without hematuria; D63.8 Anemia in other chronic diseases classified elsewhere; K26.9 Duodenal ulcer, unspecified as acute or chronic, without hemorrhage or perforation; N18.3 Chronic kidney disease, stage 3 (moderate); E11.22 Type 2 diabetes mellitus with diabetic chronic kidney disease; E11.65 Type 2 diabetes mellitus with hyperglycemia; I48.0 Paroxysmal atrial fibrillation; E66.9 Obesity, unspecified; Z20.828 Contact with and (suspected) exposure to other viral communicable diseases; E78.5 Hyperlipidemia, unspecified; E86.0 Dehydration; I25.10 Atherosclerotic heart disease of native coronary artery without angina pectoris; I25.5 Ischemic cardiomyopathy; K21.9 Gastro-esophageal reflux disease without esophagitis; Z68.34 Body mass index [BMI] 34.0-34.9, adult; Z79.01 Long term (current) use of anticoagulants; Z79.4 Long term (current) use of insulin; Z79.899 Other long term (current) drug therapy; Z85.528 Personal history of other malignant neoplasm of kidney; Z85.51 Personal history of malignant neoplasm of bladder; Z92.21 Personal history of antineoplastic chemotherapy; Z92.3 Personal history of irradiation; Z95.1 Presence of aortocoronary bypass graft; Z95.810 Presence of automatic (implantable) cardiac defibrillator; Z90.5 Acquired absence of kidney; Z87.891 Personal history of nicotine dependence; Z87.442 Personal history of urinary calculi; Z96.651 Presence of right artificial knee joint; Z80.42 Family history of malignant neoplasm of prostate; Z80.9 Family history of malignant neoplasm, unspecified
CPT/HCPCS: 36415; 36556; 51702; 71045; 71046; 76770; 80048; 80053; 81001; 82009; 82550; 83036; 83605; 83735; 83880; 84484; 85025; 85027; 85610; 85730; 87040; 87077; 87086; 87186; 92960; 93005; 94640; 96361; 96365; 96366; 96368; 96375; 99291

== ENCOUNTER 2020-05-23 12:06 | Inpatient (IN) | payer MEDICARE, BC ==
[2020-05-23] MEDS ORDERED: NITROGLYCERIN OINT 1 INCH/GM PACKET TOPICAL STA (12:35)
[2020-05-23] MEDS ORDERED: FUROSEMIDE 10 MG/ML 4 ML VIAL IV STA (12:35)
--- NOTE | 2020-05-23 12:38 | ED ---
General Adult HPI - General Chief complaint: Shortness of Breath Stated complaint: Dyspnea Time Seen by Provider: 05/23/20 12:20 Source: patient, family, RN notes reviewed Mode of arrival: wheelchair Limitations: no limitations - History of Present Illness Initial comments: Patient is a pleasant 79-year-old male presenting to the emergency department fo r difficulty in breathing. Symptoms have progressed with the past few days. Symptoms worsen with lying flat as well as exertion. Patient does have leg swelling. No calf pain. No cough. No chest pain. No fever. Patient does have history of similar symptoms previously associated with CHF. Patient did see his doctor prior to arrival and was advised to come to emergency department. - Related Data Home Medications Medication Instructions Recorded Confirmed Atorvastatin [Lipitor] 80 mg PO HS 11/19/19 05/23/20 Cyanocobalamin (Vitamin B-12) 1,000 mcg PO DAILY 11/19/19 05/23/20 [Vitamin B-12] Apixaban [Eliquis] 2.5 mg PO BID 03/08/20 05/23/20 Cholecalciferol [Vitamin D3 (25 1,000 unit PO DAILY 03/08/20 05/23/20 Mcg = 1000 Iu)] Ferrous Sulfate [Iron (65 MG 325 mg PO DAILY 03/08/20 05/23/20 Elemental)] Midodrine [ProAmatine] 10 mg PO TID@0700,1100,1600 03/08/20 05/23/20 Pantoprazole Sodium [Protonix] 40 mg PO W/BRKFST 03/08/20 05/23/20 Insulin Glargine [Lantus] 42 units SQ HS 04/12/20 05/23/20 Furosemide [Lasix] 40 mg PO DAILY@1200 05/23/20 05/23/20 Furosemide [Lasix] 80 mg PO DAILY 05/23/20 05/23/20 Previous Rx's Medication Instructions Recorded Venlafaxine HCl [Effexor] 75 mg PO BID tab 10/07/19 Melatonin 3 mg PO HS tablet 12/05/19 lamoTRIgine [LaMICtal] 100 mg PO HS #3 tab 12/05/19 Amiodarone [Cordarone] 200 mg PO DAILY #30 tab 03/13/20 Allergies Allergy/AdvReac Type Severity Reaction Status Date / Time No Known Allergies Allergy Verified 05/23/20 13:27 Review of Systems ROS Statement: Those systems with pertinent positive or pertinent negative responses have been documented in the HPI. ROS Other: All systems not noted in ROS Statement are negative. Constitutional: Denies: fever Eyes: Denies: eye pain ENT: Denies: ear pain Respiratory: Reports: dyspnea. Denies: cough Cardiovascular: Reports: dyspnea on exertion, orthopnea, edema. Denies: chest pain Endocrine: Reports: fatigue Gastrointestinal: Denies: abdominal pain Genitourinary: Denies: dysuria Musculoskeletal: Denies: back pain Skin: Denies: rash Neurological: Denies: weakness Past Medical History Past Medical History: Atrial Fibrillation, Coronary Artery Disease (CAD), Cance r, Heart Failure, Diabetes Mellitus, GERD/Reflux, Hyperlipidemia, Renal Disease Additional Past Medical History / Comment(s): See Dr Vargas's H&P, hx kidney and bladder cancer- tx with chemo and radiation 2012, "growth on kidney", history of CABG, cardiomyopathy, AICD implantation ULCER, KIDNEY STONES History of Any Multi-Drug Resistant Organisms: None Reported Past Surgical History: Bladder Surgery, Heart Catheterization, Orthopedic Surgery Additional Past Surgical History / Comment(s): Port-a-cath insertion/later removed. Bilateral cataract , ORIF R ankle with 2 screws,"scraped the bladder" 06-02-16 TOTAL RT KNEE,growth on kidney removed Past Anesthesia/Blood Transfusion Reactions: No Reported Reaction Additional Past Anesthesia/Blood Transfusion Reaction / Comment(s): Pt has never recieved blood. Past Psychological History: Bipolar, Depression Smoking Status: Former smoker Past Alcohol Use History: None Reported Past Drug Use History: None Reported - Past Family History Father Family Medical History: Cancer Additional Family Medical History / Comment(s): prostate Mother Family Medical History: No Reported History Additional Family Medical History / Comment(s): Mother had bowel perforations. She at 88 yrs of age. Brother(s) Family Medical History: Cancer Sister(s) Family Medical History: Cancer General Exam Limitations: no limitations General appearance: alert, in no apparent distress Head exam: Present: normocephalic Eye exam: Present: normal appearance Neck exam: Present: normal inspection Respiratory exam: Present: wheezes Cardiovascular Exam: Present: regular rate, normal rhythm GI/Abdominal exam: Present: soft. Absent: tenderness Extremities exam: Present: pedal edema (+3 bilaterally). Absent: calf tenderness Neurological exam: Present: alert Psychiatric exam: Present: normal affect, normal mood Skin exam: Present: normal color Course Vital Signs 05/23/20 12:12 Temperature 97.0 F L Pulse Rate 65 Respiratory 18 Rate Blood Pressure 112/59 O2 Sat by Pulse 96 Oximetry EKG Findings - EKG Comments: EKG Findings:: Sinus rhythm at 70. First-degree AV block OH of 240. QRS 134. QT 466. QTc 503. Left axis. LVH with repolarization. Inferior Q waves. Medical Decision Making - Medical Decision Making Patient reevaluated and updated. Case was discussed in detail with Dr. Poe, who will admit covering for Dr. Cavanaugh. - Lab Data Result diagrams: 05/23/20 13:15 05/23/20 13:15 Lab Results 05/23/20 05/23/20 05/23/20 Range/Units 13:15 13:15 13:15 WBC 6.8 (3.8-10.6) k/uL RBC 3.65 L (4.30-5.90) m/uL Hgb 10.3 L (13.0-17.5) gm/dL Hct 33.8 L (39.0-53.0) % MCV 92.4 (80.0-100.0) fL MCH 28.3 (25.0-35.0) pg MCHC 30.6 L (31.0-37.0) g/dL RDW 14.8 (11.5-15.5) % Plt Count 311 (150-450) k/uL Neutrophils % 76 % Lymphocytes % 8 % Monocytes % 12 % Eosinophils % 2 % Basophils % 1 % Neutrophils # 5.2 (1.3-7.7) k/uL Lymphocytes # 0.6 L (1.0-4.8) k/uL Monocytes # 0.8 (0-1.0) k/uL Eosinophils # 0.2 (0-0.7) k/uL Basophils # 0.0 (0-0.2) k/uL Hypochromasia Slight PT 11.9 (9.0-12.0) sec INR 1.2 H (<1.2) APTT 24.9 (22.0-30.0) sec Sodium 136 L (137-145) mmol/L Potassium 4.5 (3.5-5.1) mmol/L Chloride 100 (98-107) mmol/L Carbon Dioxide 30 (22-30) mmol/L Anion Gap 6 mmol/L BUN 33 H (9-20) mg/dL Creatinine 1.79 H (0.66-1.25) mg/dL Est GFR (CKD-EPI)AfAm 41 (>60 ml/min/1.73 sqM) Est GFR (CKD-EPI)NonAf 35 (>60 ml/min/1.73 sqM) Glucose 264 H (74-99) mg/dL Plasma Lactic Acid Rodriguez (0.7-2.0) mmol/L Calcium 8.7 (8.4-10.2) mg/dL Total Bilirubin 0.8 (0.2-1.3) mg/dL AST 20 (17-59) U/L ALT 12 (4-49) U/L Alkaline Phosphatase 126 (38-126) U/L Troponin I (0.000-0.034) ng/mL NT-Pro-B Natriuret Pep pg/mL Total Protein 6.8 (6.3-8.2) g/dL Albumin 3.2 L (3.5-5.0) g/dL 05/23/20 05/23/20 05/23/20 Range/Units 13:15 13:15 13:15 WBC (3.8-10.6) k/uL RBC (4.30-5.90) m/uL Hgb (13.0-17.5) gm/dL Hct (39.0-53.0) % MCV (80.0-100.0) fL MCH (25.0-35.0) pg MCHC (31.0-37.0) g/dL RDW (11.5-15.5) % Plt Count (150-450) k/uL Neutrophils % % Lymphocytes % % Monocytes % % Eosinophils % % Basophils % % Neutrophils # (1.3-7.7) k/uL Lymphocytes # (1.0-4.8) k/uL Monocytes # (0-1.0) k/uL Eosinophils # (0-0.7) k/uL Basophils # (0-0.2) k/uL Hypochromasia PT (9.0-12.0) sec INR (<1.2) APTT (22.0-30.0) sec Sodium (137-145) mmol/L Potassium (3.5-5.1) mmol/L Chloride (98-107) mmol/L Carbon Dioxide (22-30) mmol/L Anion Gap mmol/L BUN (9-20) mg/dL Creatinine (0.66-1.25) mg/dL Est GFR (CKD-EPI)AfAm (>60 ml/min/1.73 sqM) Est GFR (CKD-EPI)NonAf (>60 ml/min/1.73 sqM) Glucose (74-99) mg/dL Plasma Lactic Acid Rodriguez 1.4 (0.7-2.0) mmol/L Calcium (8.4-10.2) mg/dL Total Bilirubin (0.2-1.3) mg/dL AST (17-59) U/L ALT (4-49) U/L Alkaline Phosphatase (38-126) U/L Troponin I 0.025 (0.000-0.034) ng/mL NT-Pro-B Natriuret Pep 9900 pg/mL Total Protein (6.3-8.2) g/dL Albumin (3.5-5.0) g/dL - Radiology Data Radiology results: image reviewed (Chest x-ray shows pulmonary edema small right effusion.) Disposition Clinical Impression: Congestive heart failure Disposition: ADMITTED IP TO THIS HOSP Is patient prescribed a controlled substance at d/c from ED?: No Referrals: Rolly Cavanaugh MD [Primary Care Provider] - 1-2 days Decision Time: 14:08
[2020-05-23 13:32] LABS: Basophils % (A) 1 %; Eosinophils # (A) 0.2 k/uL (0-0.7); Eosinophils % (A) 2 %; HCT 33.8 % (39.0-53.0); HGB 10.3 gm/dL (13.0-17.5); Hypochromasia Slight; Lymphocytes # (A) 0.6 k/uL (1.0-4.8); Lymphocytes % (A) 8 %; MCH 28.3 pg (25.0-35.0); MCHC 30.6 g/dL (31.0-37.0); MCV 92.4 fL (80.0-100.0); Monocytes # (A) 0.8 k/uL (0-1.0); Monocytes % (A) 12 %; Neutrophils # (A) 5.2 k/uL (1.3-7.7); Neutrophils % (A) 76 %; Platelet Count 311 k/uL (150-450); RBC 3.65 m/uL (4.30-5.90); RDW 14.8 % (11.5-15.5); WBC 6.8 k/uL (3.8-10.6)
[2020-05-23 13:41] LABS: Albumin 3.2 g/dL (3.5-5.0); Calcium 8.7 mg/dL (8.4-10.2); Potassium 4.5 mmol/L (3.5-5.1); Total Bilirubin 0.8 mg/dL (0.2-1.3); Total Protein 6.8 g/dL (6.3-8.2)
[2020-05-23 13:44] LABS: INR 1.2 (<1.2); Partial Thromboplastin Time 24.9 sec (22.0-30.0); Prothrombin Time 11.9 sec (9.0-12.0)
--- NOTE | 2020-05-23 14:01 | XR ---
EXAMINATION TYPE: XR chest 2V DATE OF EXAM: 05/23/2020 CLINICAL HISTORY: Difficulty breathing TECHNIQUE: Frontal and lateral views of the chest are obtained. COMPARISON: 03/04/2020 chest radiograph FINDINGS: Sternotomy wires. Left-sided single-chamber AICD. Low lung volumes accentuates the promine nt cardiac silhouette. Diffuse airspace opacities and small right pleural effusion. No pneumothorax. Degenerative changes of the shoulders. IMPRESSION: Prominent cardiac silhouette, pulmonary edema, and small right pleural effusion. Findings likely represent CHF.
[2020-05-23] MEDS ORDERED: ASPIRIN 325 MG TAB PO STA (14:09)
[2020-05-23] MEDS ORDERED: FUROSEMIDE 10 MG/ML 4 ML VIAL IV SCH ×2 (14:15→20:00)
[2020-05-23] MEDS: MIDODRINE 5 MG TAB PO SCH (16:18)
[2020-05-23 16:28] LABS: Glucose,Whole Blood 262 mg/dL (75-99)
[2020-05-23] MEDS: INSULIN ASPART (NovoLOG) 100 UNIT/ML VIAL SQ SCH (17:00)
[2020-05-23] MEDS: NITROGLYCERIN OINT 1 INCH/GM PACKET TOPICAL SCH ×2 (17:23→21:53)
[2020-05-23 20:32] LABS: Glucose,Whole Blood 109 mg/dL (75-99)
[2020-05-23] MEDS ORDERED: INSULIN DETEMIR (LEVEMIR) 100 UNIT/ML SYR SQ SCH (21:00)
[2020-05-23] MEDS: FUROSEMIDE 10 MG/ML 10 ML VIAL IV SCH (21:15)
[2020-05-23] MEDS: lamoTRIgine 100 MG TAB PO SCH (21:16)
[2020-05-23] MEDS: ATORVASTATIN 80 MG TAB PO SCH (21:16)
[2020-05-23] MEDS: APIXABAN 2.5 MG TABLET PO SCH (21:16)
[2020-05-23] MEDS: VENLAFAXINE HCL 75 MG TAB PO SCH (21:17)
[2020-05-23] MEDS: MELATONIN 3 MG TABLET PO SCH (21:53)
--- NOTE | 2020-05-23 22:52 | P.HPIM ---
History of Present Illness H&P Date: 05/23/20 Chief Complaint: short of breath history of presenting complaint Patient is a 79-year-old patient of Dr. Cavanaugh. history of chronic atrial fibrillation on anticoagulation with Eliquis, coronary artery disease status post bypass graft, cardiomyopathy-EF less than 30% status post AICD placement, history of nephrectomy and unilateral kidney, CK D stage III, hypertension, hyp erlipidemia, GERD, diabetes type 2 and history of bipolar/depression .bleeding peptic ulcers. patient now presents in 1 week of increasing shortness of breath. No cough. Increase in lower extremity edema. Also having trouble sleeping flat having positive orthopnea. Decreased appetite tired rundown. No fever no chills. Review of systems: GEN.: [tired] EYES: [None] HEENT: [None] NECK: [None] RESPIRATORY: [as above] CARDIOVASCULAR: [as above] GASTROINTESTINAL: [None] GENITOURINARY: [None] MUSCULOSKELETAL: [None] LYMPHATICS: [None] HEMATOLOGICAL: [None] PSYCHIATRY: [None] NEUROLOGICAL: [None] Past medical history to include: CHF, EF less than 30%, duodenal ulcer, chronic kidney disease stage III, nephrectomy due to renal cancer and bladder cancer, diabetes mellitus type 2, hyperlipidemia, coronary artery disease with stent, bipolar disorder with depression, GERD, AICD Social history: . occasional use a walker. This smoke in the past. No alcohol. Physical examination: VITAL SIGNS: 97, 65, 18, 112/59, 96% room air GENERAL: BMI 31.2, sitting up, tired. EYES: Pupils equal. Conjunctiva normal. HEENT: External appearance of nose and ears normal, oral cavity grossly normal. NECK: JVDraised; masses not palpable. HEART: [First and second heart sounds are normal; edema present. LUNGS: Respiratory rate increased; basal crackles. ABDOMEN: Soft, nontender, liver spleen not palpable, no masses palpable. PSYCH: Alert and oriented x3; mood and affect tiredl. NEUROLOGICAL: Cranial nerves grossly intact; no facial asymmetry, power and sensation grossly intact. LYMPHATICS: No lymph nodes palpable in the axilla and neck INVESTIGATIONS, reviewed in the clinical context: White count 6.8 hemoglobin 10.3 platelets 311 potassium 4.5 bun 33 creatinine 1.79 Lab work from March 13 shows: BUN 72 creatinine 2.65 EKG tracing personally reviewed by me-sinus rhythm, first-degree AV block, mild intraventricular block Chest x-ray film personally reviewed by me-pulmonary edema, cardiomegaly , pacemaker Assessment: -Acute on chronic congestive heart failure exacerbation from systolic dysfunction, EF less than 30%, POA - chronicduodenal ulcers -normocytic anemia chronic, secondary to renal disease -chronic kidney disease stage III.at the baseline creatinine of 1.9 -History of nephrectomy due to renal cancer and bladder cancer history -Diabetes type 2. Insulin-dependent uncontrolled with hyperglycemia. -Hyperlipidemia -Coronary artery disease with history of multiple stents placement -Bipolar disorder and depression -GERD -Obesity Plan: patient be started on IV Lasix. Follows input and output Home medications and resume. Follow electrolytes.care was discussed with the patient. Questions were answered. Follow Accu-Cheks Past Medical History Past Medical History: Atrial Fibrillation, Coronary Artery Disease (CAD), Cancer, Heart Failure, Diabetes Mellitus, GERD/Reflux, GI Bleed, Hyperlipidemia, Hypertension, Renal Disease, Skin Disorder Additional Past Medical History / Comment(s): Afib RVR, cardiomyopathy, renal carcinoma with nephrectomy, chronic renal disease stage III, chronic anemia, bladder cancer with removal/chemo/radiation, UTIs, UTI with septic shock, IDDM type II, peptic ulcer with bleed, current R foot bunion-being treated by Dr. Cavanaugh. History of Any Multi-Drug Resistant Organisms: None Reported Past Surgical History: AICD, Bladder Surgery, Coronary Bypass/CABG, Heart Catheterization, Orthopedic Surgery Additional Past Surgical History / Comment(s): Nephrectomy, bladder scrapping to remove tumor, 03/10/20 cardioversion, 2018 AICD, 2014 CABG 5 vessel, ORIF R ankle with screws, total R knee arthroplasty, R carpal tunnel release, colonoscopy, bilateral cataract removal/lens implants. Past Anesthesia/Blood Transfusion Reactions: No Reported Reaction Additional Past Anesthesia/Blood Transfusion Reaction / Comment(s): PT unsure if he received blood with CABG Type of Cardiac Device: AICD Device Placement Date:: 2018 Smoking Status: Former smoker - Past Family History Father Family Medical History: Cancer Additional Family Medical History / Comment(s): Father had cancer-pt cannot recall type. Mother Family Medical History: No Reported History Additional Family Medical History / Comment(s): Mother had "bleeding problems"- pt cannot elaborate. Brother(s) Family Medical History: Cancer Sister(s) Family Medical History: Cancer Medications and Allergies Home Medications Medication Instructions Recorded Confirmed Type Venlafaxine HCl [Effexor] 75 mg PO BID tab 10/07/19 05/23/20 Rx Atorvastatin [Lipitor] 80 mg PO HS 11/19/19 05/23/20 History Cyanocobalamin (Vitamin B-12) 1,000 mcg PO DAILY 11/19/19 05/23/20 History [Vitamin B-12] Melatonin 3 mg PO HS tablet 12/05/19 05/23/20 Rx lamoTRIgine [LaMICtal] 100 mg PO HS #3 tab 12/05/19 05/23/20 Rx Apixaban [Eliquis] 2.5 mg PO BID 03/08/20 05/23/20 History Cholecalciferol [Vitamin D3 (25 1,000 unit PO DAILY 03/08/20 05/23/20 History Mcg = 1000 Iu)] Ferrous Sulfate [Iron (65 MG 325 mg PO DAILY 03/08/20 05/23/20 History Elemental)] Midodrine [ProAmatine] 10 mg PO TID@0700,1100,1600 03/08/20 05/23/20 History Pantoprazole Sodium [Protonix] 40 mg PO W/BRKFST 03/08/20 05/23/20 History Amiodarone [Cordarone] 200 mg PO DAILY #30 tab 03/13/20 05/23/20 Rx Insulin Glargine [Lantus] 42 units SQ HS 04/12/20 05/23/20 History Furosemide [Lasix] 40 mg PO DAILY@1200 05/23/20 05/23/20 History Furosemide [Lasix] 80 mg PO DAILY 05/23/20 05/23/20 History Allergies Allergy/AdvReac Type Severity Reaction Status Date / Time No Known Allergies Allergy Verified 05/23/20 13:27 Physical Exam Vitals: Vital Signs Temp Pulse Pulse Resp BP BP Pulse Ox 05/23/20 20:24 97.9 F 60 18 101/57 98 05/23/20 17:00 121/59 05/23/20 15:00 97.4 F L 77 146/85 98 05/23/20 14:42 61 18 117/67 98 10/08/20 12:12 97.0 F L 65 18 112/59 96 Intake and Output 05/23/20 05/23/20 05/23/20 06:59 14:59 22:59 Other: Voiding Method Toilet Weight 101.605 kg 101.605 kg Results CBC & Chem 7: 05/23/20 13:15 05/23/20 13:15 Labs: Abnormal Lab Results - Last 24 Hours (Table) 05/23/20 05/23/20 05/23/20 Range/Units 13:15 13:15 13:15 RBC 3.65 L (4.30-5.90) m/uL Hgb 10.3 L (13.0-17.5) gm/dL Hct 33.8 L (39.0-53.0) % MCHC 30.6 L (31.0-37.0) g/dL Lymphocytes # 0.6 L (1.0-4.8) k/uL INR 1.2 H (<1.2) Sodium 136 L (137-145) mmol/L BUN 33 H (9-20) mg/dL Creatinine 1.79 H (0.66-1.25) mg/dL Glucose 264 H (74-99) mg/dL POC Glucose (mg/dL) (75-99) mg/dL Albumin 3.2 L (3.5-5.0) g/dL 05/23/20 05/23/20 Range/Units 16:27 20:22 RBC (4.30-5.90) m/uL Hgb (13.0-17.5) gm/dL Hct (39.0-53.0) % MCHC (31.0-37.0) g/dL Lymphocytes # (1.0-4.8) k/uL INR (<1.2) Sodium (137-145) mmol/L BUN (9-20) mg/dL Creatinine (0.66-1.25) mg/dL Glucose (74-99) mg/dL POC Glucose (mg/dL) 262 H 109 H (75-99) mg/dL Albumin (3.5-5.0) g/dL Thrombosis Risk Factor Assmnt - Choose All That Apply Any of the Below Risk Factors Present?: Yes Each Factor Represents 1 point: Heart failure (<1month), Obesity (BMI >25), Swollen legs (current) Other Risk Factors: Yes Each Risk Factor Represents 2 Points: Malignancy Each Risk Factor Represents 3 Points: Age 75 years or older Other congenital or acquired thrombophilia - If yes, enter type in comment: No Thrombosis Risk Factor Assessment Total Risk Factor Score: 8 Thrombosis Risk Factor Assessment Level: High Risk
[2020-05-24] MEDS: FUROSEMIDE 10 MG/ML 10 ML VIAL IV SCH ×3 (04:41→21:21)
[2020-05-24 06:13] LABS: Glucose,Whole Blood 46 mg/dL (75-99)
[2020-05-24 06:51] LABS: Glucose,Whole Blood 52 mg/dL (75-99)
[2020-05-24 07:16] LABS: Glucose,Whole Blood 69 mg/dL (75-99)
[2020-05-24] MEDS: MIDODRINE 5 MG TAB PO SCH ×3 (07:42→17:09)
[2020-05-24] MEDS: INSULIN ASPART (NovoLOG) 100 UNIT/ML VIAL SQ SCH ×3 (07:44→17:05)
[2020-05-24 08:34] LABS: Glucose,Whole Blood 84 mg/dL (75-99)
[2020-05-24] MEDS: AMIODARONE 200 MG TAB PO SCH (08:34)
[2020-05-24] MEDS: APIXABAN 2.5 MG TABLET PO SCH ×2 (08:34→22:24)
[2020-05-24] MEDS: PANTOPRAZOLE 40 MG TABLET PO SCH (08:34)
[2020-05-24] MEDS: VENLAFAXINE HCL 75 MG TAB PO SCH ×2 (08:35→22:23)
[2020-05-24] MEDS: FERROUS SULFATE 325 MG TAB PO SCH (08:39)
[2020-05-24] MEDS: CHOLECALCIFEROL 1,000 UNIT TAB PO SCH (08:39)
[2020-05-24] MEDS: NITROGLYCERIN OINT 1 INCH/GM PACKET TOPICAL SCH ×4 (08:39→23:14)
[2020-05-24] MEDS: CYANOCOBALAMIN 500 MCG TAB PO SCH (08:39)
[2020-05-24 09:17] LABS: Calcium 8.7 mg/dL (8.4-10.2); Potassium 4.1 mmol/L (3.5-5.1)
--- NOTE | 2020-05-24 10:57 | P.CRDCN ---
History of Present Illness Consult date: 05/24/20 Chief complaint: Shortness of breath History of present illness: This is a very pleasant 7-year-old gentleman with coronary artery disease as wel l as severe ischemic cardiomyopathy as well as hypertension and dyslipidemia and paroxysmal atrial fibrillation presented to the emergency room complaining of shortness of breath. For the last few days he has been experiencing increasing in the shortness of breath with exertion and for the last day his shortness of breath has gotten worse to the balloon he cannot even walk a few steps before he feels short of breath. No symptoms of chest pain or chest discomfort. The shortness of breath is definitely worse once he's laying flat in bed. He did not have any lower extremities edema last few days but when he was seen and examined this morning he does have mild bilateral lower extremities edema. No dizziness or lightheadedness and no feeling of heart racing or fluttering or syncope. He states clearly that he was compliant with all his medications and also he stated that he is somewhat compliant with his diet on salt intake. The patient somewhat is a poor historian and he is difficult to hear well. He is known to have severe cardiomyopathy. He underwent an echocardiogram in September 2019 and that revealed severe cardiomyopathy with EF around 20% was mild valvular abnormalities including mild aortic stenosis and mild mitral regurgitation and mild tricuspid regurgitation. When he was examined and seen this morning he definitely have bilateral rhonchi with diminished breathing sounds over the left lung field. He does have bilateral lower extremity edema. The EKG showed sinus rhythm with nonspecific changes. The chest x-ray did not show any acute abnormalities. The BNP was checked and came in to be around 10,000. Currently the patient is on Lasix. He is known to have chronic kidney disease with baseline creatinine around 1.8. At this point we'll continue the current dose of Lasix IV and continue monitor the kidney function and electrolytes. I'm going to repeat the echocardiogram on him as well. We'll continue following up with him. Past Medical History Past Medical History: Atrial Fibrillation, Coronary Artery Disease (CAD), Cancer, Heart Failure, Diabetes Mellitus, GERD/Reflux, GI Bleed, Hyperlipidemia, Hypertension, Renal Disease, Skin Disorder Additional Past Medical History / Comment(s): Afib RVR, cardiomyopathy, renal carcinoma with nephrectomy, chronic renal disease stage III, chronic anemia, bladder cancer with removal/chemo/radiation, UTIs, UTI with septic shock, IDDM type II, peptic ulcer with bleed, current R foot bunion-being treated by Dr. Cavanaugh. History of Any Multi-Drug Resistant Organisms: None Reported Past Surgical History: AICD, Bladder Surgery, Coronary Bypass/CABG, Heart Catheterization, Orthopedic Surgery Additional Past Surgical History / Comment(s): Nephrectomy, bladder scrapping to remove tumor, 03/10/20 cardioversion, 2019 AICD, 2015 CABG 5 vessel, ORIF R ankle with screws, total R knee arthroplasty, R carpal tunnel release, colonoscopy, bilateral cataract removal/lens implants. Past Anesthesia/Blood Transfusion Reactions: No Reported Reaction Additional Past Anesthesia/Blood Transfusion Reaction / Comment(s): PT unsure if he received blood with CABG Type of Cardiac Device: AICD Device Placement Date:: 2018 Smoking Status: Former smoker - Past Family History Father Family Medical History: Cancer Additional Family Medical History / Comment(s): Father had cancer-pt cannot recall type. Mother Family Medical History: No Reported History Additional Family Medical History / Comment(s): Mother had "bleeding problems"- pt cannot elaborate. Brother(s) Family Medical History: Cancer Sister(s) Family Medical History: Cancer Medications and Allergies Home Medications Medication Instructions Recorded Confirmed Type Venlafaxine HCl [Effexor] 75 mg PO BID tab 10/07/19 05/23/20 Rx Atorvastatin [Lipitor] 80 mg PO HS 11/19/19 05/23/20 History Cyanocobalamin (Vitamin B-12) 1,000 mcg PO DAILY 11/19/19 05/23/20 History [Vitamin B-12] Melatonin 3 mg PO HS tablet 12/05/19 05/23/20 Rx lamoTRIgine [LaMICtal] 100 mg PO HS #3 tab 12/05/19 05/23/20 Rx Apixaban [Eliquis] 2.5 mg PO BID 03/08/20 05/23/20 History Cholecalciferol [Vitamin D3 (25 1,000 unit PO DAILY 03/08/20 05/23/20 History Mcg = 1000 Iu)] Ferrous Sulfate [Iron (65 MG 325 mg PO DAILY 03/08/20 05/23/20 History Elemental)] Midodrine [ProAmatine] 10 mg PO TID@0700,1100,1600 03/08/20 05/23/20 History Pantoprazole Sodium [Protonix] 40 mg PO W/BRKFST 03/08/20 05/23/20 History Amiodarone [Cordarone] 200 mg PO DAILY #30 tab 03/13/20 05/23/20 Rx Insulin Glargine [Lantus] 42 units SQ HS 04/12/20 05/23/20 History Furosemide [Lasix] 40 mg PO DAILY@1200 05/23/20 05/23/20 History Furosemide [Lasix] 80 mg PO DAILY 05/23/20 05/23/20 History Allergies Allergy/AdvReac Type Severity Reaction Status Date / Time No Known Allergies Allergy Verified 05/23/20 13:27 Physical Exam Vitals: Vital Signs Temp Pulse Pulse Resp BP BP Pulse Ox 05/24/20 09:00 97.8 F 64 16 103/60 96 05/24/20 03:26 98 F 67 18 113/64 96 05/23/20 20:24 97.9 F 60 18 101/57 98 05/23/20 17:00 121/59 05/23/20 15:00 97.4 F L 77 146/85 98 05/23/20 14:42 61 18 117/67 98 05/23/20 12:12 97.0 F L 65 18 112/59 96 Intake and Output 05/23/20 05/24/20 05/24/20 22:59 06:59 14:59 Intake Total 450 Balance 450 Intake: Oral 450 Other: Voiding Method Toilet Toilet Weight 101.605 kg 99.1 kg - Constitutional General appearance: no acute distress - Respiratory Respiratory: left: diminished - Cardiovascular Rhythm: regular Heart sounds: normal: S1, S2 Abnormal Heart Sounds: systolic murmur Results 05/23/20 13:15 05/24/20 08:43 Cardiac Enzymes 05/23/20 05/23/20 Range/Units 13:15 13:15 AST 20 (17-59) U/L Troponin I 0.025 (0.000-0.034) ng/mL Coagulation 05/23/20 Range/Units 13:15 PT 11.9 (9.0-12.0) sec APTT 24.9 (22.0-30.0) sec CBC 05/23/20 Range/Units 13:15 WBC 6.8 (3.8-10.6) k/uL RBC 3.65 L (4.30-5.90) m/uL Hgb 10.3 L (13.0-17.5) gm/dL Hct 33.8 L (39.0-53.0) % Plt Count 311 (150-450) k/uL Comprehensive Metabolic Panel 05/23/20 05/24/20 Range/Units 13:15 08:43 Sodium 136 L 137 (137-145) mmol/L Potassium 4.5 4.1 (3.5-5.1) mmol/L Chloride 100 100 (98-107) mmol/L Carbon Dioxide 30 31 H (22-30) mmol/L BUN 33 H 36 H (9-20) mg/dL Creatinine 1.79 H 1.91 H (0.66-1.25) mg/dL Glucose 264 H 71 L (74-99) mg/dL Calcium 8.7 8.7 (8.4-10.2) mg/dL AST 20 (17-59) U/L ALT 12 (4-49) U/L Alkaline Phosphatase 126 (38-126) U/L Total Protein 6.8 (6.3-8.2) g/dL Albumin 3.2 L (3.5-5.0) g/dL Current Medications Generic Name Dose Route Start Last Admin Trade Name Camiloq PRN Reason Stop Dose Admin Amiodarone HCl 200 mg 05/24/20 09:00 05/24/20 08:34 Amiodarone 200 Mg Tab PO 200 mg DAILY RADHA Administration Apixaban 2.5 mg 05/23/20 21:00 05/24/20 08:34 Apixaban 2.5 Mg Tablet PO 2.5 mg BID RADHA Administration Atorvastatin Calcium 80 mg 05/23/20 21:00 05/23/20 21:16 Atorvastatin 80 Mg Tab PO 80 mg HS RADHA Administration Cholecalciferol 1,000 unit 05/24/20 09:00 05/24/20 08:39 Cholecalciferol 1,000 Unit Tab PO 1,000 unit DAILY RADHA Administration Cyanocobalamin 1,000 mcg 05/24/20 09:00 05/24/20 08:39 Cyanocobalamin 500 Mcg Tab PO 1,000 mcg DAILY RADHA Administration Ferrous Sulfate 325 mg 05/24/20 09:00 05/24/20 08:39 Ferrous Sulfate 325 Mg Tab PO 325 mg DAILY RADHA Administration Furosemide 80 mg 05/23/20 20:00 05/24/20 04:41 Furosemide 10 Mg/Ml 10 Ml Vial IV 80 mg Q8H RADHA Administration Insulin Aspart 0 unit 05/23/20 17:30 05/24/20 07:44 Insulin Aspart (Novolog) 100 Unit/Ml Vial SQ Not Given AC-TID [facility] Protocol Insulin Detemir 42 unit 05/23/20 21:00 05/23/20 21:16 Insulin Detemir (Levemir) 100 Unit/Ml Syr SQ 42 unit HS RADHA Administration Lamotrigine 100 mg 05/23/20 21:00 05/23/20 21:16 Lamotrigine 100 Mg Tab PO 100 mg HS RADHA Administration Melatonin 3 mg 05/23/20 21:00 05/23/20 21:53 Melatonin 3 Mg Tablet PO 3 mg HS RADHA Administration Midodrine 10 mg 05/23/20 16:00 05/24/20 07:42 Midodrine 5 Mg Tab PO 10 mg TID@0700,1100,1600 RADHA Administration Nitroglycerin 1 inch 05/23/20 18:00 05/24/20 08:39 Nitroglycerin Oint 1 Inch/Gm Packet TOPICAL 1 inch QID RADHA Administration Pantoprazole Sodium 40 mg 05/24/20 07:30 05/24/20 08:34 Pantoprazole 40 Mg Tablet PO 40 mg W/BRKFST RADHA Administration Sodium Chloride 10 ml 05/23/20 21:00 05/23/20 21:16 Sodium Chloride 0.9% Flush 10 Ml Syringe IV 10 ml BID RADHA Administration Venlafaxine HCl 75 mg 05/23/20 21:00 05/24/20 08:35 Venlafaxine Hcl 75 Mg Tab PO 75 mg BID RADHA Administration Intake and Output 05/23/20 05/24/20 05/24/20 22:59 06:59 14:59 Intake Total 450 Balance 450 Intake: Oral 450 Other: Voiding Method Toilet Toilet Weight 101.605 kg 99.1 kg 05/23/20 13:15 05/24/20 08:43 Assessment and Plan Assessment: Assessment #1 acute exacerbation of congestive heart failure with reduced ejection fraction #2 known severe cardiomyopathy #3 no coronary artery disease #4 status post ICD #5 multiple comorbid conditions Plan #1 continue the current dose of Lasix IV #2 continue monitor the kidney function and electrolytes #3 he was educated about the importance of following no salt diet #4 repeat the echocardiogram #5 continue oral anticoagulation for the atrial fibrillation #6 follow up with the patient Thank you for allowing us participate in his care
[2020-05-24 11:13] VITALS: BMI 30.4
[2020-05-24 11:27] LABS: Glucose,Whole Blood 147 mg/dL (75-99)
[2020-05-24] MEDS ORDERED: ASPIRIN 325 MG TAB PO SCH (12:00)
[2020-05-24] MEDS: ACETAMINOPHEN TAB 325 MG TAB PO PRN (15:22)
[2020-05-24 17:05] LABS: Glucose,Whole Blood 94 mg/dL (75-99)
--- NOTE | 2020-05-24 17:15 | P.PN ---
Progress Note - Text Progress Note Date: 05/24/20 Chief Complaint: short of breath history of presenting complaint Patient is a 79-year-old patient of Dr. Cavanaugh. history of chronic atrial fibrillation on anticoagulation with Eliquis, coronary artery disease status post bypass graft, cardiomyopathy-EF less than 30% status post AICD placement, history of nephrectomy and unilateral kidney, CK D stage III, hypertension, hyperlipidemia, GERD, diabetes type 2 and history of bipolar/depression .bleeding peptic ulcers. patient now presents in 1 week of increasing shortness of breath. No cough. Increase in lower extremity edema. Also having trouble sleeping flat having positive orthopnea. Decreased appetite tired rundown. No fever no chills. Admitted with CHF exacerbation. Started on IV Lasix. Today-sitting at the age of the bed. Breathing a bit better. Had a rough spot this morning, but breathing. Patient been drinking quite a bit of water. Appetite improving Review of systems: Was done for constitutional, cardiovascular, GI, pulmonary. relevant finding as above Active Medications Acetaminophen (Acetaminophen Tab 325 Mg Tab) 650 mg PO Q6HR PRN PRN Reason: Fever and/ or Pain Last Admin: 05/24/20 15:22 Dose: 650 mg Documented by: Amiodarone HCl (Amiodarone 200 Mg Tab) 200 mg PO DAILY [facility] Last Admin: 05/24/20 08:34 Dose: 200 mg Documented by: Apixaban (Apixaban 2.5 Mg Tablet) 2.5 mg PO BID [facility] Last Admin: 05/24/20 08:34 Dose: 2.5 mg Documented by: Atorvastatin Calcium (Atorvastatin 80 Mg Tab) 80 mg PO HS [facility] Last Admin: 05/23/20 21:16 Dose: 80 mg Documented by: Cholecalciferol (Cholecalciferol 1,000 Unit Tab) 1,000 unit PO DAILY [facility] Last Admin: 05/24/20 08:39 Dose: 1,000 unit Documented by: Cyanocobalamin (Cyanocobalamin 500 Mcg Tab) 1,000 mcg PO DAILY [facility] Last Admin: 05/24/20 08:39 Dose: 1,000 mcg Documented by: Ferrous Sulfate (Ferrous Sulfate 325 Mg Tab) 325 mg PO DAILY [facility] Last Admin: 05/24/20 08:39 Dose: 325 mg Documented by: Furosemide (Furosemide 10 Mg/Ml 10 Ml Vial) 80 mg IV Q8H [facility] Last Admin: 05/24/20 11:22 Dose: 80 mg Documented by: Insulin Aspart (Insulin Aspart (Novolog) 100 Unit/Ml Vial) 0 unit SQ AC-TID [facility]; Protocol Last Admin: 05/24/20 17:05 Dose: Not Given Documented by: Insulin Detemir (Insulin Detemir (Levemir) 100 Unit/Ml Syr) 42 unit SQ [facility] Last Admin: 05/23/20 21:16 Dose: 42 unit Documented by: Lamotrigine (Lamotrigine 100 Mg Tab) 100 mg PO [facility] Last Admin: 05/23/20 21:16 Dose: 100 mg Documented by: Melatonin (Melatonin 3 Mg Tablet) 3 mg PO [facility] Last Admin: 05/23/20 21:53 Dose: 3 mg Documented by: Midodrine (Midodrine 5 Mg Tab) 10 mg PO TID@0700,1100,1600 [facility] Last Admin: 05/24/20 11:22 Dose: 10 mg Documented by: Nitroglycerin (Nitroglycerin Oint 1 Inch/Gm Packet) 1 inch TOPICAL QID [facility] Last Admin: 05/24/20 14:31 Dose: Not Given Documented by: Pantoprazole Sodium (Pantoprazole 40 Mg Tablet) 40 mg PO W/BRKFST [facility] Last Admin: 05/24/20 08:34 Dose: 40 mg Documented by: Sodium Chloride (Sodium Chloride 0.9% Flush 10 Ml Syringe) 10 ml IV BID [facility] Last Admin: 05/24/20 11:54 Dose: 10 ml Documented by: Venlafaxine HCl (Venlafaxine Hcl 75 Mg Tab) 75 mg PO BID [facility] Last Admin: 05/24/20 08:35 Dose: 75 mg Documented by: Physical examination: VITAL SIGNS: 97.8, 64, 16, 103/60, 96% on room air GENERAL: Sitting in the edge of the bed EYES: Pupils equal. Conjunctiva normal. HEENT: External appearance of nose and ears normal, oral cavity grossly normal. NECK: JVD raised; masses not palpable. HEART: [First and second heart sounds are normal; edema present. LUNGS: Respiratory rate increased; basal crackles. ABDOMEN: Soft, nontender, liver spleen not palpable, no masses palpable. PSYCH: Alert and oriented x3; mood and affect tiredl. INVESTIGATIONS, reviewed in the clinical context: Potassium 4.1 bun 36 creatinine 1.91 Admission testing White count 6.8 hemoglobin 10.3 platelets 311 potassium 4.5 bun 33 creatinine 1.79 Lab work from March 13 shows: BUN 72 creatinine 2.65 EKG tracing personally reviewed by me-sinus rhythm, first-degree AV block, mild intraventricular block Chest x-ray film personally reviewed by me-pulmonary edema, cardiomegaly , pacemaker Assessment: -Acute on chronic congestive heart failure exacerbation from systolic dysfunction, EF less than 30%, POA-slow to respond - chronicduodenal ulcers -normocytic anemia chronic, secondary to renal disease -chronic kidney disease stage III.at the baseline creatinine of 1.9 -History of nephrectomy due to renal cancer and bladder cancer history -Diabetes type 2. Insulin-dependent uncontrolled with hyperglycemia. -Hyperlipidemia -Coronary artery disease with history of multiple stents placement -Bipolar disorder and depression -GERD -Obesity Plan: Continue IV Lasix. Follow electrolytes. Discussed with the patient. Being followed by cardiology. Other medications to continue.
[2020-05-24] MEDS ORDERED: INSULIN DETEMIR (LEVEMIR) 100 UNIT/ML SYR SQ SCH (21:00)
[2020-05-24 21:27] LABS: Glucose,Whole Blood 70 mg/dL (75-99)
[2020-05-24] MEDS: lamoTRIgine 100 MG TAB PO SCH (22:23)
[2020-05-24] MEDS: ATORVASTATIN 80 MG TAB PO SCH (22:23)
[2020-05-24] MEDS: MELATONIN 3 MG TABLET PO SCH (22:24)
[2020-05-24 23:23] LABS: Glucose,Whole Blood 62 mg/dL (75-99)
[2020-05-25 00:13] LABS: Glucose,Whole Blood 70 mg/dL (75-99)
[2020-05-25] MEDS: FUROSEMIDE 10 MG/ML 10 ML VIAL IV SCH ×3 (04:45→21:12)
[2020-05-25 04:47] LABS: Glucose,Whole Blood 148 mg/dL (75-99)
[2020-05-25 06:50] LABS: Glucose,Whole Blood 149 mg/dL (75-99)
[2020-05-25] MEDS: MIDODRINE 5 MG TAB PO SCH ×3 (07:19→15:39)
[2020-05-25] MEDS: PANTOPRAZOLE 40 MG TABLET PO SCH (07:19)
[2020-05-25] MEDS: INSULIN ASPART (NovoLOG) 100 UNIT/ML VIAL SQ SCH ×3 (07:19→17:22)
[2020-05-25] MEDS: ACETAMINOPHEN TAB 325 MG TAB PO PRN (07:25)
[2020-05-25 08:16] LABS: Calcium 8.9 mg/dL (8.4-10.2); Magnesium 2.1 mg/dL (1.6-2.3); Potassium 4.6 mmol/L (3.5-5.1)
[2020-05-25] MEDS: FERROUS SULFATE 325 MG TAB PO SCH (08:56)
[2020-05-25] MEDS: AMIODARONE 200 MG TAB PO SCH (08:57)
[2020-05-25] MEDS: CHOLECALCIFEROL 1,000 UNIT TAB PO SCH (08:57)
[2020-05-25] MEDS: VENLAFAXINE HCL 75 MG TAB PO SCH ×2 (08:57→21:18)
[2020-05-25] MEDS: APIXABAN 2.5 MG TABLET PO SCH ×2 (08:57→21:19)
[2020-05-25] MEDS: NITROGLYCERIN OINT 1 INCH/GM PACKET TOPICAL SCH ×4 (08:58→21:20)
[2020-05-25] MEDS: CYANOCOBALAMIN 500 MCG TAB PO SCH (08:58)
[2020-05-25 12:00] LABS: Glucose,Whole Blood 183 mg/dL (75-99)
--- NOTE | 2020-05-25 13:56 | P.PN ---
Subjective Progress Note Date: 05/25/20 History of present illness: This is a very pleasant 7-year-old gentleman with coronary artery disease as well as severe ischemic cardiomyopathy as well as hypertension and dyslipidemia and paroxysmal atrial fibrillation presented to the emergency room complaining of shortness of breath. For the last few days he has been experiencing increasing in the shortness of breath with exertion and for the last day his shortness of breath has gotten worse to the balloon he cannot even walk a few steps before he feels short of breath. No symptoms of chest pain or chest discomfort. The shortness of breath is definitely worse once he's laying flat in bed. He did not have any lower extremities edema last few days but when he was seen and examined this morning he does have mild bilateral lower extremities edema. No dizziness or lightheadedness and no feeling of heart racing or f luttering or syncope. He states clearly that he was compliant with all his medications and also he stated that he is somewhat compliant with his diet on salt intake. The patient somewhat is a poor historian and he is difficult to hear well. He is known to have severe cardiomyopathy. He underwent an echocardiogram in September 2019 and that revealed severe cardiomyopathy with EF around 20% was mild valvular abnormalities including mild aortic stenosis and mild mitral regurgitation and mild tricuspid regurgitation. When he was examined and seen this morning he definitely have bilateral rhonchi with diminished breathing sounds over the left lung field. He does have bilateral lower extremity edema. The EKG showed sinus rhythm with nonspecific changes. The chest x-ray did not show any acute abnormalities. The BNP was checked and came in to be around 10,000. Currently the patient is on Lasix. He is known to have chronic kidney disease with baseline creatinine around 1.8. At this point we'll continue the current dose of Lasix IV and continue monitor the kidney function and electrolytes. I'm going to repeat the echocardiogram on him as well. We'll continue following up with him. 05/25/2020 Patient continues to have lower extremity edema and crackles on exam. He has been receiving Lasix 80 mg IV every 8 hours. Creatinine noted to be mildly elevated at 2.08 up from 1.8 on admission however wide range of kidney function on prior admissions. Blood pressure controlled with borderline low systolics in the 100s. He states he feels well and is wondering if he can go home. PHYSICAL EXAMINATION Blood pressure 123/61 heart rate 67 afebrile and maintaining oxygen saturation on 2 L nasal cannula CONSTITUTIONAL: No apparent distress. HEENT: Head is normocephalic. Pupils are equal, round. Sclerae anicteric. Mucous membranes of the mouth are moist. No JVD. No carotid bruit. CHEST EXAMINATION: Bilateral crackles at bases. HEART EXAMINATION: Regular rate and rhythm. S1, S2 heard. No murmurs, gallops or rub. ABDOMEN: Soft, nontender. Positive bowel sounds. EXTREMITIES: 2-3+ lower extremity edema NEUROLOGIC EXAMINATION: Patient is awake, alert and oriented x3. Assessment #1 acute exacerbation of congestive heart failure with reduced ejection fraction #2 known severe cardiomyopathy #3 no coronary artery disease #4 status post ICD #5 multiple comorbid conditions #6 paroxysmal atrial fibrillation, currently sinus rhythm Plan Continue the current dose of Lasix IV, monitor creatinine closely with increasing creatinine noted. Continue with Eliquis 2.5 mg twice a day for his atrial fibrillation. Patient has been intolerant to heart failure regimen in the past with borderline low blood pressures. Ideally TERRANCE inhibitor or beta scarlet. Intolerance to heart failure regimen may be a sign of end-stage heart failure. Attempt to optimize heart failure regimen as able. Ins and outs do not appear accurate although appears to be losing weight. Continue diuresis and supportive care. Objective - Vital Signs Vital signs: Vital Signs Temp 97.6 F 05/25/20 09:00 Pulse 67 05/25/20 11:05 Resp 18 05/25/20 11:05 BP 123/61 05/25/20 11:05 Pulse Ox 94 L 05/25/20 11:05 Intake & Output 05/24/20 05/25/20 05/25/20 18:59 06:59 18:59 Intake Total 486 300 Output Total 600 Balance -114 300 Weight 99.1 kg 97.522 kg Intake: Oral 486 300 Output: Urine 600 Other: Voiding Method Toilet # Voids 3 - Labs CBC & Chem 7: 05/23/20 13:15 05/25/20 07:50 Labs: Abnormal Lab Results - Last 24 Hours (Table) 05/24/20 05/24/20 05/24/20 Range/Units 21:25 23:21 23:59 Carbon Dioxide (22-30) mmol/L BUN (9-20) mg/dL Creatinine (0.66-1.25) mg/dL Glucose (74-99) mg/dL POC Glucose (mg/dL) 70 L 62 L 70 L (75-99) mg/dL 05/25/20 05/25/20 05/25/20 Range/Units 04:41 06:45 07:50 Carbon Dioxide 31 H (22-30) mmol/L BUN 40 H (9-20) mg/dL Creatinine 2.08 H (0.66-1.25) mg/dL Glucose 122 H (74-99) mg/dL POC Glucose (mg/dL) 148 H 149 H (75-99) mg/dL 05/25/20 Range/Units 11:48 Carbon Dioxide (22-30) mmol/L BUN (9-20) mg/dL Creatinine (0.66-1.25) mg/dL Glucose (74-99) mg/dL POC Glucose (mg/dL) 183 H (75-99) mg/dL
--- NOTE | 2020-05-25 15:12 | P.PN ---
Subjective history of presenting complaint Patient is a 79-year-old patient of Dr. Cavanaugh. history of chronic atrial fibrillation on anticoagulation with Eliquis, coronary artery disease status post bypass graft, cardiomyopathy-EF less than 30% status post AICD placement, history of nephrectomy and unilateral kidney, CK D stage III, hypertension, hyperlipidemia, GERD, diabetes type 2 and history of bipolar/depression .bleeding peptic ulcers. patient now presents in 1 week of increasing shortness of breath. No cough. Increase in lower extremity edema. Also having trouble sleeping flat having positive orthopnea. Decreased appetite tired rundown. No fever no chills. Admitted with CHF exacerbation. Started on IV Lasix. Today-sitting at the age of the bed. Breathing a bit better. Had a rough spot this morning, but breathing. Patient been drinking quite a bit of water. Appetite improving 05/25/2020 Patient breathing is quiet however he still have significant leg swelling Heel Lift Gouger evaluated the patient and recommended to continue with IV Lasix for now, Frederic wrap is going to be applied to both lower extremities Vitas looks stable and creatinine is stable at 2.0. Alk phos is normal and sugar is controlled. Objective - Vital Signs Vital signs: Vital Signs Temp 97.6 F 05/25/20 14:56 Pulse 73 05/25/20 14:56 Resp 18 05/25/20 14:56 BP 137/76 05/25/20 14:56 Pulse Ox 93 L 05/25/20 14:56 Intake & Output 05/24/20 05/25/20 05/25/20 18:59 06:59 18:59 Intake Total 486 300 Output Total 600 Balance -114 300 Weight 99.1 kg 97.522 kg Intake: Oral 486 300 Output: Urine 600 Other: Voiding Method Toilet # Voids 3 2 - Exam GENERAL: The patient is alert and oriented x3, not in any acute distress. Well developed, well nourished. HEENT: Pupils are round and equally reacting to light. EOMI. No scleral icterus. No conjunctival pallor. Normocephalic, atraumatic. No pharyngeal erythema. No thyromegaly. CARDIOVASCULAR: S1 and S2 present. No murmurs, rubs, or gallops. PULMONARY: Chest is clear to auscultation, no wheezing or crackles. ABDOMEN: Soft, nontender, nondistended, normoactive bowel sounds. No palpable organomegaly. MUSCULOSKELETAL: No joint swelling or deformity. -EXTREMITIES: No cyanosis, clubbing, . 2-3+ bilateral pitting leg edema NEUROLOGICAL: Gross neurological examination did not reveal any focal deficits. SKIN: No rashes. no petechiae. - Labs CBC & Chem 7: 05/23/20 13:15 05/25/20 07:50 Labs: Abnormal Lab Results - Last 24 Hours (Table) 05/24/20 05/24/20 05/24/20 Range/Units 21:25 23:21 23:59 Carbon Dioxide (22-30) mmol/L BUN (9-20) mg/dL Creatinine (0.66-1.25) mg/dL Glucose (74-99) mg/dL POC Glucose (mg/dL) 70 L 62 L 70 L (75-99) mg/dL 05/25/20 05/25/20 05/25/20 Range/Units 04:41 06:45 07:50 Carbon Dioxide 31 H (22-30) mmol/L BUN 40 H (9-20) mg/dL Creatinine 2.08 H (0.66-1.25) mg/dL Glucose 122 H (74-99) mg/dL POC Glucose (mg/dL) 148 H 149 H (75-99) mg/dL 05/25/20 Range/Units 11:48 Carbon Dioxide (22-30) mmol/L BUN (9-20) mg/dL Creatinine (0.66-1.25) mg/dL Glucose (74-99) mg/dL POC Glucose (mg/dL) 183 H (75-99) mg/dL Assessment and Plan Assessment: -Acute on chronic congestive heart failure exacerbation from systolic dysfunction, EF less than 30%, POA-slow to respond - chronicduodenal ulcers -normocytic anemia chronic, secondary to renal disease -chronic kidney disease stage III.at the baseline creatinine of 1.9 -History of nephrectomy due to renal cancer and bladder cancer history -Diabetes type 2. Insulin-dependent uncontrolled with hyperglycemia. -Hyperlipidemia -Coronary artery disease with history of multiple stents placement -Bipolar disorder and depression -GERD -Obesity Plan: Continue IV Lasix. Follow electrolytes. Discussed with the patient and he agrees to [facility]. Being followed by cardiology. Other medications to continue. DVT prophylaxis: Eliquis GI prophylaxis PPI
[2020-05-25 17:12] LABS: Glucose,Whole Blood 177 mg/dL (75-99)
[2020-05-25 20:16] LABS: Glucose,Whole Blood 140 mg/dL (75-99)
[2020-05-25] MEDS: MELATONIN 3 MG TABLET PO SCH (21:18)
[2020-05-25] MEDS: ATORVASTATIN 80 MG TAB PO SCH (21:18)
[2020-05-25] MEDS: lamoTRIgine 100 MG TAB PO SCH (21:19)
[2020-05-25] MEDS: INSULIN DETEMIR (LEVEMIR) 100 UNIT/ML SYR SQ SCH (21:19)
[2020-05-26] MEDS: FUROSEMIDE 10 MG/ML 10 ML VIAL IV SCH ×2 (04:34→11:34)
[2020-05-26 06:09] LABS: Glucose,Whole Blood 170 mg/dL (75-99)
[2020-05-26] MEDS: MIDODRINE 5 MG TAB PO SCH ×3 (07:23→15:35)
[2020-05-26] MEDS: PANTOPRAZOLE 40 MG TABLET PO SCH (07:23)
[2020-05-26] MEDS: INSULIN ASPART (NovoLOG) 100 UNIT/ML VIAL SQ SCH ×3 (07:24→17:51)
[2020-05-26 08:20] LABS: Magnesium 2.2 mg/dL (1.6-2.3); Potassium 4.5 mmol/L (3.5-5.1)
[2020-05-26] MEDS: VENLAFAXINE HCL 75 MG TAB PO SCH ×2 (08:51→21:51)
[2020-05-26] MEDS: NITROGLYCERIN OINT 1 INCH/GM PACKET TOPICAL SCH ×4 (08:51→22:32)
[2020-05-26] MEDS: CHOLECALCIFEROL 1,000 UNIT TAB PO SCH (08:51)
[2020-05-26] MEDS: CYANOCOBALAMIN 500 MCG TAB PO SCH (08:51)
[2020-05-26] MEDS: AMIODARONE 200 MG TAB PO SCH (08:51)
[2020-05-26] MEDS: FERROUS SULFATE 325 MG TAB PO SCH (08:51)
[2020-05-26] MEDS: APIXABAN 2.5 MG TABLET PO SCH ×2 (08:51→21:51)
[2020-05-26 11:59] LABS: Glucose,Whole Blood 119 mg/dL (75-99)
--- NOTE | 2020-05-26 13:14 | P.PN ---
Subjective Progress Note Date: 05/26/20 This is a very pleasant 79-year-old gentleman with coronary artery disease as well as severe ischemic cardiomyopathy as well as hypertension and dyslipidemia and paroxysmal atrial fibrillation presented to the emergency room complaining of shortness of breath. For the last few days he has been experiencing increasing in the shortness of breath with exertion and for the last day his shortness of breath has gotten worse to the balloon he cannot even walk a few steps before he feels short of breath. No symptoms of chest pain or chest discomfort. The shortness of breath is definitely worse once he's laying flat in bed. He did not have any lower extremities edema last few days but when he was seen and examined this morning he does have mild bilateral lower extremities edema. No dizziness or lightheadedness and no feeling of heart racing or fluttering or syncope. He states clearly that he was compliant with all his medications and also he stated that he is somewhat compliant with his diet on salt intake. The patient somewhat is a poor historian and he is difficult to hear well. He is known to have severe cardiomyopathy. He underwent an echocardiogram in September 2019 and that revealed severe cardiomyopathy with EF around 20% was mild valvular abnormalities including mild aortic stenosis and mild mitral regurgitation and mild tricuspid regurgitation. When he was examined and seen this morning he definitely have bilateral rhonchi with diminished breathing sounds over the left lung field. He does have bilateral lower extremity edema. The EKG showed sinus rhythm with nonspecific changes. The chest x-ray did not show any acute abnormalities. The BNP was checked and came in to be around 10,000. Currently the patient is on Lasix. He is known to have chronic kidney disease with baseline creatinine around 1.8. At this point we'll continue the current dose of Lasix IV and continue monitor the kidney function and electrolytes. I'm going to repeat the echocardiogram on him as well. We'll continue following up with him. 05/26/2020 Patient seen and examined. Patient continues to receive IV Lasix and states he has been having good urine output. He believes his lower extremity edema is slowly improving. Denies any chest pain or shortness breath. Blood pressure is borderline low with systolics in the 100s to 110s. States he is anxious to go home. Still with significant shortness of breath with minimal activity. PHYSICAL EXAMINATION Blood pressure 108/59 heart rate 66 afebrile and maintaining oxygen saturation on 2 L nasal cannula CONSTITUTIONAL: No apparent distress. HEENT: Head is normocephalic. Pupils are equal, round. Sclerae anicteric. Mucous membranes of the mouth are moist. No carotid bruit. CHEST EXAMINATION: Bilateral crackles at bases. HEART EXAMINATION: Regular rate and rhythm. S1, S2 heard. No murmurs, gallops or rub. ABDOMEN: Soft, nontender. Positive bowel sounds. EXTREMITIES: 2-3+ lower extremity edema NEUROLOGIC EXAMINATION: Patient is awake, alert and oriented x3. Assessment #1 acute exacerbation of congestive heart failure with reduced ejection fraction #2 known severe cardiomyopathy #3 no coronary artery disease #4 status post ICD #5 multiple comorbid conditions #6 paroxysmal atrial fibrillation, currently sinus rhythm #7 Acute kidney injury, 1.8-2.2 Plan Patient's volume status is somewhat hard to assess. He does have bilateral lower extremity edema and crackles on exam. Unfortunately his BUN and creatinine has been continuously increasing and his ins and outs have been an accurate. No significant hypotensive episodes to correlate for ATN. We will hold IV diuretics and transitioned to 80 mg oral once a day and monitor response. Continue with Eliquis 2.5 mg twice a day for his atrial fibrillation. Patient has been intolerant to heart failure regimen in the past with borderline low blood pressures. Ideally TERRANCE inhibitor or beta scarlet. Intolerance to heart failure regimen may be a sign of end-stage heart failure. Attempt to optimize heart failure regimen as able. If Creatinine fails to normalize and still ambiguous volume status, may consider right heart catheterization for both pressures as well as to measure cardiac output. Objective - Vital Signs Vital signs: Vital Signs Temp 97.7 F 05/26/20 09:00 Pulse 66 05/26/20 09:00 Resp 16 05/26/20 09:00 BP 108/59 05/26/20 11:33 Pulse Ox 94 L 05/26/20 11:33 Intake & Output 05/25/20 05/26/20 05/26/20 18:59 06:59 18:59 Intake Total 200 Balance 200 Weight 97.069 kg Intake: Oral 200 Other: Voiding Method Toilet # Voids 2 1 - Labs CBC & Chem 7: 05/23/20 13:15 05/26/20 07:04 Labs: Abnormal Lab Results - Last 24 Hours (Table) 10/06/0405/25/20 05/26/20 Range/Units 17:10 20:12 06:07 Chloride (98-107) mmol/L BUN (9-20) mg/dL Creatinine (0.66-1.25) mg/dL Glucose (74-99) mg/dL POC Glucose (mg/dL) 177 H 140 H 170 H (75-99) mg/dL 05/26/20 05/26/20 Range/Units 07:04 11:58 Chloride 97 L (98-107) mmol/L BUN 41 H (9-20) mg/dL Creatinine 2.20 H (0.66-1.25) mg/dL Glucose 175 H (74-99) mg/dL POC Glucose (mg/dL) 119 H (75-99) mg/dL
--- NOTE | 2020-05-26 13:49 | XR ---
EXAMINATION TYPE: XR chest 1V portable DATE OF EXAM: 05/26/2020 COMPARISON: 05/23/2020. HISTORY: Follow-up shortness of breath. TECHNIQUE: Single frontal view of the chest is obtained. FINDINGS: There is grossly unchanged bilateral diffuse patchy hazy opacities. No significant pleural effusion, or pneumothorax seen. Stable cardiomediastinal silhouette and cardiothoracic postsurgical changes. The osseous structures are unchanged. IMPRESSION: No significant interval change.
[2020-05-26 17:06] LABS: Glucose,Whole Blood 135 mg/dL (75-99)
[2020-05-26 20:02] LABS: Glucose,Whole Blood 155 mg/dL (75-99)
[2020-05-26] MEDS: ATORVASTATIN 80 MG TAB PO SCH (21:51)
[2020-05-26] MEDS: lamoTRIgine 100 MG TAB PO SCH (21:51)
[2020-05-26] MEDS: MELATONIN 3 MG TABLET PO SCH (21:51)
[2020-05-26] MEDS: INSULIN DETEMIR (LEVEMIR) 100 UNIT/ML SYR SQ SCH (21:52)
--- NOTE | 2020-05-26 22:49 | P.PN ---
Subjective history of presenting complaint Patient is a 79-year-old patient of Dr. Cavanaugh. history of chronic atrial fibrillation on anticoagulation with Eliquis, coronary artery disease status post bypass graft, cardiomyopathy-EF less than 30% status post AICD placement, history of nephrectomy and unilateral kidney, CK D stage III, hypertension, hyperlipidemia, GERD, diabetes type 2 and history of bipolar/depression .bleeding peptic ulcers. patient now presents in 1 week of increasing shortness of breath. No cough. Increase in lower extremity edema. Also having trouble sleeping flat having positive orthopnea. Decreased appetite tired rundown. No fever no chills. Admitted with CHF exacerbation. Started on IV Lasix. Today-sitting at the age of the bed. Breathing a bit better. Had a rough spot this morning, but breathing. Patient been drinking quite a bit of water. Appetite improving 05/25/2020 Patient breathing is quiet however he still have significant leg swelling Hospice Nurse evaluated the patient and recommended to continue with IV Lasix for now, Frederic wrap is going to be applied to both lower extremities Vitas looks stable and creatinine is stable at 2.0. Alk phos is normal and sugar is controlled. 05/26/2020 Patient is awake and alert, his breathing quietly, he is saturating 90s on room air, he still has leg swelling but improved due to Frederic wrap. His creatinine went up to 2.2 today and cardiology team switch him to oral Lasix 80 mg daily. Cardiology team did not cleared the patient for discharge today and the goyo mmend keep monitoring. Patient could not tolerate medications for heart failure including beta scarlet or FREDERIC inhibitor, and now he does not tolerate well Lasix, due to his advanced disease. Hospice Nurse recommended to keep monitoring and may consider right heart catheterization Discussed with the patient and and they agreed to stay in the hospital We'll ask for PT/OT evaluation tomorrow as patient feels wobbly due to his length of stay in the hospital Objective - Vital Signs Vital signs: Vital Signs Temp 97.5 F L 05/26/20 20:00 Pulse 72 05/26/20 20:00 Resp 19 05/26/20 20:00 BP 138/63 05/26/20 20:00 Pulse Ox 94 L 05/26/20 20:00 Intake & Output 05/26/20 05/26/20 05/27/20 06:59 18:59 06:59 Intake Total 200 Output Total 300 300 Balance 200 -300 -300 Weight 97.069 kg Intake: Oral 200 Output: Urine 300 300 Other: Voiding Method Toilet Toilet # Voids 2 2 - Exam GENERAL: The patient is alert and oriented x3, not in any acute distress. Well developed, well nourished. HEENT: Pupils are round and equally reacting to light. EOMI. No scleral icterus. No conjunctival pallor. Normocephalic, atraumatic. No pharyngeal erythema. No thyromegaly. CARDIOVASCULAR: S1 and S2 present. No murmurs, rubs, or gallops. PULMONARY: Chest is clear to auscultation, no wheezing or crackles. ABDOMEN: Soft, nontender, nondistended, normoactive bowel sounds. No palpable organomegaly. MUSCULOSKELETAL: No joint swelling or deformity. -EXTREMITIES: No cyanosis, clubbing, . 2-3+ bilateral pitting leg edema NEUROLOGICAL: Gross neurological examination did not reveal any focal deficits. SKIN: No rashes. no petechiae. - Labs CBC & Chem 7: 05/23/20 13:15 05/26/20 07:04 Labs: Abnormal Lab Results - Last 24 Hours (Table) 05/26/20 05/26/20 05/26/20 Range/Units 06:07 07:04 11:58 Chloride 97 L (98-107) mmol/L BUN 41 H (9-20) mg/dL Creatinine 2.20 H (0.66-1.25) mg/dL Glucose 175 H (74-99) mg/dL POC Glucose (mg/dL) 170 H 119 H (75-99) mg/dL 05/26/20 05/26/20 Range/Units 17:05 19:59 Chloride (98-107) mmol/L BUN (9-20) mg/dL Creatinine (0.66-1.25) mg/dL Glucose (74-99) mg/dL POC Glucose (mg/dL) 135 H 155 H (75-99) mg/dL Assessment and Plan Assessment: -Acute on chronic congestive heart failure exacerbation from systolic dysfunction, EF less than 30%, POA-slow to respond - chronicduodenal ulcers -normocytic anemia chronic, secondary to renal disease -chronic kidney disease stage III.at the baseline creatinine of 1.9 -History of nephrectomy due to renal cancer and bladder cancer history -Diabetes type 2. Insulin-dependent uncontrolled with hyperglycemia. -Hyperlipidemia -Coronary artery disease with history of multiple stents placement -Bipolar disorder and depression -GERD -Obesity Plan: Continue oral Lasix. Follow electrolytes. Discussed with the patient and he agrees to stay in Hospital. Being followed by cardiology. Other medications to continue. DVT prophylaxis: Eliquis GI prophylaxis PPI PT/OT evaluation is ordered and is pending
[2020-05-27 06:19] LABS: Glucose,Whole Blood 65 mg/dL (75-99)
[2020-05-27 07:28] LABS: Glucose,Whole Blood 68 mg/dL (75-99)
[2020-05-27] MEDS: PANTOPRAZOLE 40 MG TABLET PO SCH (07:30)
[2020-05-27] MEDS: MIDODRINE 5 MG TAB PO SCH (07:30)
[2020-05-27] MEDS: INSULIN ASPART (NovoLOG) 100 UNIT/ML VIAL SQ SCH (07:35)
[2020-05-27 08:11] LABS: Calcium 8.8 mg/dL (8.4-10.2); Magnesium 2.1 mg/dL (1.6-2.3); Potassium 3.7 mmol/L (3.5-5.1)
[2020-05-27] MEDS: VENLAFAXINE HCL 75 MG TAB PO SCH (08:50)
[2020-05-27] MEDS: FERROUS SULFATE 325 MG TAB PO SCH (08:50)
[2020-05-27] MEDS: CYANOCOBALAMIN 500 MCG TAB PO SCH (08:50)
[2020-05-27] MEDS: APIXABAN 2.5 MG TABLET PO SCH (08:51)
[2020-05-27] MEDS: CHOLECALCIFEROL 1,000 UNIT TAB PO SCH (08:51)
[2020-05-27] MEDS: AMIODARONE 200 MG TAB PO SCH (08:51)
[2020-05-27] MEDS ORDERED: FUROSEMIDE 80 MG TAB PO SCH (09:00)
[2020-05-27] MEDS ORDERED: METOPROLOL SUCCINATE (ER) 25 MG TAB.ER.24H PO SCH (09:00)
[2020-05-27 09:06] LABS: Glucose,Whole Blood 95 mg/dL (75-99)
[2020-05-27 09:31] VITALS: PULSE 66; RESP 21; TEMP 97.2
[2020-05-27 10:09] VITALS: BP 129/72
--- NOTE | 2020-05-27 10:23 | P.PN ---
Subjective Progress Note Date: 05/27/20 This is a very pleasant 7-year-old gentleman with coronary artery disease as well as severe ischemic cardiomyopathy as well as hypertension and dyslipidemia and paroxysmal atrial fibrillation presented to the emergency room complaining of shortness of breath. For the last few days he has been experiencing increasing in the shortness of breath with exertion and for the last day his shortness of breath has gotten worse to the balloon he cannot even walk a few steps before he feels short of breath. No symptoms of chest pain or chest discomfort. The shortness of breath is definitely worse once he's laying flat in bed. He did not have any lower extremities edema last few days but when he was seen and examined this morning he does have mild bilateral lower extremities edema. No dizziness or lightheadedness and no feeling of heart racing or fluttering or syncope. He states clearly that he was compliant with all his medications and also he stated that he is somewhat compliant with his diet on salt intake. The patient somewhat is a poor historian and he is difficult to hear well. He is known to have severe cardiomyopathy. He underwent an echocardiogram in September 2019 and that revealed severe cardiomyopathy with EF around 20% was mild valvular abnormalities including mild aortic stenosis and mild mitral regurgitation and mild tricuspid regurgitation. When he was examined and seen this morning he definitely have bilateral rhonchi with diminished breathing sounds over the left lung field. He does have bilateral lower extremity edema. The EKG showed sinus rhythm with nonspecific changes. The chest x-ray did not show any acute abnormalities. The BNP was checked and came in to be around 10,000. Currently the patient is on Lasix. He is known to have chronic kidney disease with baseline creatinine around 1.8. At this point we'll continue the current dose of Lasix IV and continue monitor the kidney function and electrolytes. I'm going to repeat the echocardiogram on him as well. We'll continue following up with him. 05/27/2020 Patient was seen and examined this morning, diuresed over the weekend, currently on oral diuretics. Quite anxious to be discharged home. Blood pressure 128/70 with a heart rate in the 60s, 94% on 2 L of oxygen. Sodium 138, potassium 3.7, BUN 37, creatinine 2.1, magnesium 2.1. Objective - Vital Signs Vital signs: Vital Signs Temp 97.2 F L 05/27/20 09:00 Pulse 66 05/27/20 09:00 Resp 21 05/27/20 09:00 BP 129/72 05/27/20 10:09 Pulse Ox 94 L 05/27/20 09:00 Intake & Output 05/26/20 05/27/20 05/27/20 18:59 06:59 18:59 Intake Total 300 Output Total 300 Balance -300 300 Weight 95.708 kg Intake: Oral 300 Output: Urine 300 Other: Voiding Method Toilet # Voids 2 1 - Exam PHYSICAL EXAMINATION: GENERAL: 79-year-old gentleman in no acute distress at the time of my examination HEENT: Head is atraumatic, normocephalic. Pupils equal, round. Sclera anicteric. Conjunctiva are clear. Mucous membranes of the mouth are moist. Neck is supple. There is no elevated jugular venous pressure. No carotid bruit is heard. HEART EXAMINATION: Heart S1, S2 normal. No murmur or gallop heard. CHEST EXAMINATION: Lungs are clear to auscultation and precussion. No chest wall tenderness is noted on palpation or with deep breathing. ABDOMEN: Soft, nontender. Bowel sounds are heard. No organomegaly noted. EXTREMITIES: 2+ peripheral pulses with trace evidence of peripheral edema and no calf tenderness noted. NEUROLOGIC patient is awake, alert and oriented 3 . . - Labs CBC & Chem 7: 05/23/20 13:15 05/27/20 07:12 Labs: Abnormal Lab Results - Last 24 Hours (Table) 05/26/20 05/26/20 05/26/20 Range/Units 11:58 17:05 19:59 Carbon Dioxide (22-30) mmol/L BUN (9-20) mg/dL Creatinine (0.66-1.25) mg/dL Glucose (74-99) mg/dL POC Glucose (mg/dL) 119 H 135 H 155 H (75-99) mg/dL 05/27/20 05/27/20 05/27/20 Range/Units 06:16 07:12 07:26 Carbon Dioxide 33 H (22-30) mmol/L BUN 37 H (9-20) mg/dL Creatinine 2.15 H (0.66-1.25) mg/dL Glucose 50 L (74-99) mg/dL POC Glucose (mg/dL) 65 L 68 L (75-99) mg/dL Assessment and Plan Plan: Assessment and plan #1 systolic congestive heart failure acute on chronic #2 ischemic cardiomyopathy with prior AICD #3 coronary artery disease with prior bypass surgery #4 hyperlipidemia #5 hypertension #6 paroxysmal atrial fibrillation #7 acute on chronic renal insufficiency #8 diabetes #9 history of renal cell carcinoma with prior nephrectomy #10 chronic anemia #11 history of bladder cancer Plan We will discontinue the Nitropaste and start the patient on Toprol 25 mg daily. He may be able to be discharged home today from our perspective. We will make him a follow-up appointment to see Dr. Vargas in the office post discharge. DNP note has been reviewed, I agree with a documented findings and plan of care. Patient was seen and examined.
--- NOTE | 2020-05-27 11:20 | P.DS ---
Providers Date of admission: 05/23/20 22:51 Attending physician: Jhoan Poe Consults: 05/23/20 14:09 Consult Physician Routine Consulting Provider: Gillian Steiner Consult Reason/Comments: chf Do you want consulting provider notified?: Yes Primary care physician: Rolly Cavanaugh [facility] Course: Diagnoses: -Acute on chronic congestive heart failure exacerbation from systolic dysfunction, EF less than 30%, close to end stage heart disease -Acute kidney injury on the top of chronic kidney disease, secondary to Lasix - chronic duodenal ulcers -normocytic anemia chronic, secondary to renal disease -chronic kidney disease stage III.at the baseline creatinine of 1.9 -History of nephrectomy due to renal cancer and bladder cancer history -Diabetes type 2. Insulin-dependent uncontrolled with hyperglycemia. -Hyperlipidemia -Coronary artery disease with history of multiple stents placement -Bipolar disorder and depression -GERD -Obesity Hospital course: This is a pleasant 79 years old male with multiple medical problems as below, presents because of dyspnea and leg swelling secondary to acute CHF exacerbation with systolic dysfunction and ejection fraction less than 30%, patient has been followed closely by cardiology team and he was treated with IV Lasix, his dyspnea improved and his room air, however he still have significant leg swelling, Frederic wrap is provided. His creatinine started trending up to 2.2, Lasix was switched to oral pills 80 mg daily per cardiology team. Also patient was started on metoprolol 25 mg daily Glucose was slightly low this morning at 65 and 50, it was corrected to 95 after he ate his meals, with [place] his Levemir from 30 down to 25 units at bedtime and patient informed and he agrees Physical therapy evaluation:recommend The patient showed interval improvement and on the day of discharge she denies chest pain or dyspnea, no abdominal pain, no change in urine or bowel habits. No fever. Patient also eager to go home. Patient was cleared for discharge by cardiology team Problems and management plan were discussed with the patient and he verbalized understanding and acceptance Patient was found stable and can be discharged home however he needs follow-up as an outpatient. Patient was instructed to follow up with PCP Dr. mendez within one week and patient agrees. Also patient was instructed to follow up with his milieu therapist Dr. ibarra in 1-2 weeks, patient agrees to chronic appointments Gen: patient is a AAOx3, no distress CVS: S1-S2, RRR, no murmur Lungs: B/L CTA, no wheezing Abdomen: soft, no distention, no tenderness, positive bowel sounds Extremity: 1+ bilateral pitting leg edema Time spent more than 35 minutes Plan - Discharge Summary Discharge Rx Participant: No New Discharge Prescriptions: New Insulin Detemir (Levemir) [Levemir] 3,025 unit SQ HS #1 syr Metoprolol Succinate (ER) [Toprol XL] 25 mg PO DAILY #30 tab.er.24h Continue Venlafaxine HCl [Effexor] 75 mg PO BID tab Atorvastatin [Lipitor] 80 mg PO HS Cyanocobalamin (Vitamin B-12) [Vitamin B-12] 1,000 mcg PO DAILY Melatonin 3 mg PO HS tablet lamoTRIgine [LaMICtal] 100 mg PO HS #3 tab Pantoprazole Sodium [Protonix] 40 mg PO W/BRKFST Midodrine [ProAmatine] 10 mg PO TID@0700,1100,1600 Ferrous Sulfate [Iron (65 MG Elemental)] 325 mg PO DAILY Cholecalciferol [Vitamin D3 (25 Mcg = 1000 Iu)] 1,000 unit PO DAILY Apixaban [Eliquis] 2.5 mg PO BID Amiodarone [Cordarone] 200 mg PO DAILY #30 tab Furosemide [Lasix] 80 mg PO DAILY #30 tab Discontinued Insulin Glargine [Lantus] 42 units SQ HS Furosemide [Lasix] 40 mg PO DAILY@1200 Discharge Medication List Venlafaxine HCl [Effexor] 75 mg PO BID tab 10/07/19 [Rx] Atorvastatin [Lipitor] 80 mg PO HS 11/19/19 [History] Cyanocobalamin (Vitamin B-12) [Vitamin B-12] 1,000 mcg PO DAILY 11/19/19 [History] Melatonin 3 mg PO HS tablet 12/05/19 [Rx] lamoTRIgine [LaMICtal] 100 mg PO HS #3 tab 12/05/19 [Rx] Apixaban [Eliquis] 2.5 mg PO BID 03/08/20 [History] Cholecalciferol [Vitamin D3 (25 Mcg = 1000 Iu)] 1,000 unit PO DAILY 03/08/20 [History] Ferrous Sulfate [Iron (65 MG Elemental)] 325 mg PO DAILY 03/08/20 [History] Midodrine [ProAmatine] 10 mg PO TID@0700,1100,1600 03/08/20 [History] Pantoprazole Sodium [Protonix] 40 mg PO W/BRKFST 03/08/20 [History] Amiodarone [Cordarone] 200 mg PO DAILY #30 tab 03/13/20 [Rx] Furosemide [Lasix] 80 mg PO DAILY #30 tab 05/27/20 [Rx] Insulin Detemir (Levemir) [Levemir] 3,025 unit SQ HS #1 syr 05/27/20 [Rx] Metoprolol Succinate (ER) [Toprol XL] 25 mg PO DAILY #30 tab.er.24h 05/27/20 [Rx] Follow up Appointment(s)/Referral(s): Rolly Cavanaugh MD [Primary Care Provider] - 1-2 days Aliza Vargas MD [STAFF PHYSICIAN] - 1 Week Activity/Diet/Wound Care/Special Instructions: Heart healthy diet Activities Limited till you see your doctor Discharge Disposition: HOME WITH HOME HEALTH SERVICES
[2020-05-27 11:42] LABS: Glucose,Whole Blood 162 mg/dL (75-99)
[2020-05-27] MEDS ORDERED: INSULIN DETEMIR (LEVEMIR) 100 UNIT/ML SYR SQ SCH (21:00)
== END 2020-05-27 12:59 | disposition home or self-care (01) | DRG 291 ==
LOC: EC 12:06 → 1SOBS 14:10 → OBSVTOIN 22:51
PROVIDERS: ADMIT Hospitalist; ATTEND Hospitalist
DX: I13.0 Hypertensive heart and chronic kidney disease with heart failure and stage 1 through stage 4 chronic kidney disease, or unspecified chronic kidney disease (principal); I50.23 Acute on chronic systolic (congestive) heart failure; N17.9 Acute kidney failure, unspecified; K21.9 Gastro-esophageal reflux disease without esophagitis; E66.9 Obesity, unspecified; E78.5 Hyperlipidemia, unspecified; F31.9 Bipolar disorder, unspecified; I25.10 Atherosclerotic heart disease of native coronary artery without angina pectoris; Z96.1 Presence of intraocular lens; Z96.651 Presence of right artificial knee joint; K26.7 Chronic duodenal ulcer without hemorrhage or perforation; I48.0 Paroxysmal atrial fibrillation; I25.5 Ischemic cardiomyopathy; E11.22 Type 2 diabetes mellitus with diabetic chronic kidney disease; T50.1X5A Adverse effect of loop [high-ceiling] diuretics, initial encounter; N18.30 Chronic kidney disease, stage 3 unspecified; E11.65 Type 2 diabetes mellitus with hyperglycemia; Z79.899 Other long term (current) drug therapy; Z79.4 Long term (current) use of insulin; Z79.01 Long term (current) use of anticoagulants; Z95.810 Presence of automatic (implantable) cardiac defibrillator; Z68.29 Body mass index [BMI] 29.0-29.9, adult; Z98.42 Cataract extraction status, left eye; Z98.41 Cataract extraction status, right eye; Z98.890 Other specified postprocedural states; Z95.1 Presence of aortocoronary bypass graft; Z92.3 Personal history of irradiation; Z87.891 Personal history of nicotine dependence; Z80.42 Family history of malignant neoplasm of prostate; Z83.79 Family history of other diseases of the digestive system; Z87.442 Personal history of urinary calculi; Z90.5 Acquired absence of kidney; Z87.440 Personal history of urinary (tract) infections; Z86.19 Personal history of other infectious and parasitic diseases; Z87.11 Personal history of peptic ulcer disease; Z85.51 Personal history of malignant neoplasm of bladder; Z85.528 Personal history of other malignant neoplasm of kidney
CPT/HCPCS: 36415; 71045; 71046; 80048; 80053; 83605; 83735; 83880; 84484; 85025; 85610; 85730; 93005; 96374; 99285